=== PATIENT | male | born 1935 | race Caucasian/White ===

== ENCOUNTER 2019-05-03 09:24 | Outpatient (CLI) | payer MEDICARE, SELFPAY ==
--- NOTE | 2019-05-03 09:30 | USCV_ITS ---
Roland Diaz Age: 83 Gender: M : 1935 Exam Date: 05/03/2019 09:33 Ordering Phys: Ryan Houser MD ([email or web address]) Technologist: Yola Tucker Exam Location: [facility] [place] Indication: AORTIC STENOSIS BP: / HR: 51 Rhythm: Sinus Technical Quality: Adequate MEASUREMENTS (Male / Female) Normal Values 2D ECHO LV Diastolic Diameter PLAX 4.9 cm 4.2 - 5.9 / 3.9 - 5.3 cm LV Systolic Diameter PLAX 2.8 cm LV Chamber Size 5.6 cm IVS Diastolic Thickness 1.4 cm 0.6 - 1.0 / 0.6 - 0.9 cm IVS Systolic Thickness 1.5 cm LVPW Diastolic Thickness 1.9 cm 0.6 - 1.0 / 0.6 - 0.9 cm LVPW Systolic Thickness 2.9 cm RV Chamber Size 2.8 cm LVOT Diameter 2.0 cm LV Ejection Fraction 2D Teich 74.3 % LV Ejection Fraction MOD 2C 68.8 % LV Ejection Fraction 2C AL 68.1 % LA Diameter 6.0 cm LA Width 4.8 cm LA Height 6.2 cm RA Width 3.8 cm RA Height 5.4 cm Aorta at Sinotubular Diameter 3.1 cm M-MODE LV Diastolic Diameter MM 5.9 cm 4.2 - 5.9 / 3.9 - 5.3 cm LV Systolic Diameter MM 4.1 cm LV Ejection Fraction MM Teich 57.6 % IVS Diastolic Thickness MM 1.3 cm 0.6 - 1.0 / 0.6 - 0.9 cm IVS Systolic Thickness MM 1.4 cm LVPW Diastolic Thickness MM 1.1 cm 0.6 - 1.0 / 0.6 - 0.9 cm LVPW Systolic Thickness MM 1.2 cm Aortic Annulus Diameter 3.3 cm LA Ao Ratio MM 1.8 MV E Point Septal Separation 0.8 cm DOPPLER AV Peak Velocity 327.0 cm/s LVOT Peak Velocity 89.0 cm/s AV Area Cont Eq vti 1.0 cm squared AV Area Cont Eq pk 0.9 cm squared MV Area PHT 2.1 cm squared Mitral E to A Ratio 3.0 MV E' Velocity 11.0 cm/s Mitral E to MV E' Ratio 16.0 Mitral E to LV E' Lateral Ratio 15.6 Mitral E to LV E' Septal Ratio 16.5 TR Peak Velocity 291.0 cm/s TR Peak Gradient 34.0 mmHg TV Peak E Velocity 44.0 cm/s Right Atrial Pressure 3.0 mmHg Pulmonary Artery Systolic Pressu 36.9 mmHg PV Peak Velocity 67.0 cm/s RV Acceleration Time 0.1 s RV Ejection Time 0.4 s RV AcT/ET 0.3 FINDINGS Left Ventricle Normal left ventricular size and systolic function, EF 58 %. No regional wall motion abnormalities. Moderate left ventricular hypertrophy. Grade I/IV diastolic dysfunction (abnormal relaxation filling pattern), normal to mildly elevated filling pressures. Right Ventricle The right ventricle is normal in size and function. Right Atrium The right atrium is normal in size. Left Atrium Moderately increased left atrial size. Mitral Valve Thickened mitral valve. Moderate mitral annular calcification. At least moderate eccentric mitral regurgitation with a jet directed posteriorly Aortic Valve Thickened and stenotic aortic valve.moderate aortic valve calcification. Possibly low gradient severe aortic valve stenosis, with a valve area of 0.81 cm squared. Peak velocity of 3.3 m/s with a peak gradient of 43 and a mean gradient of 23 mmHg Tricuspid Valve No gross abnormalities noted.trace to mild tricuspid valve regurgitation. Pulmonic Valve Trace pulmonary valve regurgitation. Pericardium Normal pericardium without effusion. Aorta Normal ascending aorta dimension. CONCLUSIONS Normal left ventricular size and systolic function, EF 58 %. No regional wall motion abnormalities. Moderate left ventricular hypertrophy. Grade I/IV diastolic dysfunction (abnormal relaxation filling pattern), normal to mildly elevated filling pressures. Thickened and stenotic aortic valve.moderate aortic valve calcification. Possibly low gradient severe aortic valve stenosis, with a valve area of 0.81 cm squared. Peak velocity of 3.3 m/s with a peak gradient of 43 and a mean gradient of 23 mmHg. Thickened mitral valve. Moderate mitral annular calcification. At least moderate eccentric mitral regurgitation with a jet directed posteriorly. Trace to mild tricuspid valve regurgitation. Estimated pulmonary artery peak systolic pressure 37 mmHg There is no pericardial effusion. There are no intracardiac masses. No previous study is available for comparison. Dr Chucho Murray MD [facility] (Electronically Signed) Final Date: 03 May 2019 23:19 S
--- NOTE | 2019-05-03 10:15 | USCV_ITS ---
Roland Diaz Age: 83 Gender: M : 1935 Exam Date: 05/03/2019 09:55 Ordering Phys: Ryan Houser MD ([email or web address]) Technologist: Yola Tucker Exam Location: [facility] – [place] Indication: AAA HISTORY: Diameter (cm) AP x Transverse x Length Velocity (cm/s) Waveform Prox Aorta: 3.26 x 3.09 x 64.10 Mid Aorta: 4.38 x 4.38 x 47.90 Distal Aorta: 5.04 x 5.41 x 6.24 18.90 Right Iliac Prox: 1.30 x 1.78 x 106.10 Left Iliac Prox: 1.16 x 1.59 x 101.50 Stent Prox Landing x x Aneurysmal Sac Max x x Lt Lat Sac Dim Rt Lat Sac Dim Stent Dist Landing x x Right Iliac Stent x x Left Iliac Stent x x Right Renal Art Left Renal Art FINDINGS: Mild to moderate diffuse plaques in the abdominal aorta. No evidence of any dissection CONCLUSIONS 1. 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 Mild to moderate diffuse plaques in the abdominal aorta. 3. Ectatic proximal common iliac arteries bilaterally No similar previous studies available for comparison Dr Chucho Murray MD [facility] (Electronically Signed) Final Date: 05 May 2019 09:22 S
== END 2019-05-03 09:25 | disposition home or self-care (01) ==
LOC: US 09:25
PROVIDERS: Family Provider Nurse Practitioner Family; PCP Nurse Practitioner Family; Visit Provider Internal Medicine Cardiovascular Disease
DX: I71.4 Abdominal aortic aneurysm, without rupture (principal); I08.3 Combined rheumatic disorders of mitral, aortic and tricuspid valves
CPT/HCPCS: 93306; 93978

== ENCOUNTER 2019-07-02 08:56 | Inpatient (IN) | payer MEDICARE, SELFPAY ==
[2019-07-02] VITALS (10 sets, daily range): BP systolic 109–161; BP diastolic 48–86; PULSE 55–64; RESP 16–26; TEMP 36.4–36.9; O2SAT 92–99; BMI 31.4
--- NOTE | 2019-07-02 09:15 | ECG_ITS ---
Measurements Intervals Macy Rate: 58 P: 50 CA: 213 QRS: -13 QRSD: 137 T: 23 QT: 488 QTc: 480 SINUS BRADYCARDIA WITH FIRST DEGREE AV BLOCK INTRAVENTRICULAR CONDUCTION DELAY [130+ ms QRS DURATION] No previous ECG available for comparison Electronically Signed On 07-03-2019 8:19:27 CDT by Ryan Houser M.D. [email or web address]
--- NOTE | 2019-07-02 09:15 | XRR_ITS ---
PROCEDURE INFORMATION: Exam: XR Chest, 1 View Exam date and time: 07/02/2019 9:16 AM Age: 83 years old Clinical indication: Shortness of breath; Prior surgery; Surgery date: 6+ months; Surgery type: Pacemaker, stents; Additional info: Dyspnea/cough TECHNIQUE: Imaging protocol: XR of the chest Views: 1 view. COMPARISON: No relevant prior studies available. FINDINGS: Tubes, catheters and devices: AICD. Lungs: COPD , interstitial prominence, and mild basilar airspace disease. Pleural space: Questionable small left pleural effusion. Heart/Mediastinum: Cardiomegaly. Vasculature: Ectasia of the thoracic aorta. Bones/joints: Degenerative change and osteopenia. XR/XR chest 1V portable [id number] IMPRESSION: 1. Cardiomegaly. 2. COPD , interstitial prominence, and mild basilar airspace disease.
--- NOTE | 2019-07-02 09:15 | W.ED.SOB ---
HPI - SOB/Dyspnea General: Chief Complaint: Shortness of Breath/Dyspnea Stated Complaint: SOB Time Seen by Provider: 07/02/19 08:58 History of Present Illness: HPI Narrative: 83 yo comes in complaining of shortness of breath. Patient has a history of congestive heart failure read through Dr. Houser's cardiology note at one point he had a very depressed ejection fraction that did seem to improve he also has a abdominal aortic aneurysm measuring 5 cm and he has some degree of aortic stenosis he has an implantable defibrillator as well patient is complaining of coughing and shortness of breath but this is been going on since March he denies any fever myalgias not even a subjective fever at this point he has some baseline orthopnea that he reports is not really worsened at all he denies any chest pain no other symptoms and no urinary tract symptoms no abdominal pain he is not recently changed any medications. Associated symptoms: Reports orthopnea; Deny abdominal pain, chest pain, fever(s), nausea or vomiting Review of Systems Const: Denies: fever, chills, body aches, change in appetite, fatigue or malaise ENMT: Reports: ear pain and nasal congestion; Denies: throat pain or nasal discharge Card: Reports: edema, shortness of breath on exertion and shortness of breath when lying down; Denies: chest pain Resp: Denies: shortness of breath, productive cough or non-productive cough GI: Denies: abdominal pain, nausea, vomiting, vomiting blood, coffee grounds in vomit, diarrhea, constipation, bloating, blood in stool or black tarry stool : Denies: flank pain, painful urination, urinary frequency or urinary urgency Skin/Breast: Denies: rash or itching PFSH ED PFSH: Medical History Abdominal aortic aneurysm (AAA) Aortic valve disease Mild to moderate aortic stenosis ASHD (arteriosclerotic heart disease) CHF (congestive heart failure) Cognitive dysfunction Elevated PSA Essential hypertension GERD (gastroesophageal reflux disease) Hyperlipidemia Hypothyroidism Ischemic cardiomyopathy LVH (left ventricular hypertrophy) Prostatic hypertrophy Pulmonary HTN SOB (shortness of breath) SVT (supraventricular tachycardia) TIA (transient ischemic attack) Ventricular tachycardia Surgical History S/P angioplasty with stent S/P implantation of automatic cardioverter/defibrillator (AICD) [facility] 08/07 Family History Father CAD (coronary artery disease) Mother CAD (coronary artery disease) CHF (congestive heart failure) Brother Parkinson disease Sister Fibromyalgia Social History Smoking and tobacco status: never smoked Alcohol intake: never Lives independently: Yes Marital status: / service: No Current occupational status: retired Current gender identity: Male Gillian/Worship: Yazidism Physical Exam Const: COMMON NORMALS: no apparent distress GENERAL APPEARANCE: cooperative and comfortable ORIENTATION/CONSCIOUSNESS: Yes awake, Yes oriented to person, Yes oriented to place and Yes oriented to time HENMT: COMMON NORMALS: normocephalic, head/scalp atraumatic, hearing grossly normal bilaterally, external ears normal, EAC's normal, TM's normal bilaterally, nasal mucous membranes and turbinates normal, moist oral mucous membranes and oropharynx normal HEAD & SCALP: normocephalic and atraumatic NOSE: nasal mucous membranes and turbinates normal EXTERNAL EAR: Yes external ears normal EXTERNAL AUDITORY CANAL: EAC's normal TYMPANIC MEMBRANE: TM's normal bilaterally Eye: COMMON NORMALS: PERRL, EOMs intact bilaterally, conjunctivae normal and no scleral icterus CONJUNCTIVA: Yes conjunctivae normal PUPIL: Yes PERRL Neck/C-Spine: COMMON NORMALS: full ROM, no lymphadenopathy and supple Lymph: LYMPHATIC: no lymphadenopathy noted and no lymphedema noted Resp: COMMON NORMALS: normal respiratory effort, no retractions and no use of accessory muscles AUSCULTATION: rales bilateral and diffuse, wheezes (mild) and diminished lung sounds Cardio: COMMON NORMALS: regular rhythm and no murmurs RATE: bradycardic RHYTHM: regular rhythm HEART SOUNDS: murmur systolic Location: right sternal border Intensity: V/ Timing: late GI: COMMON NORMALS: soft to palpation and no hepatosplenomegaly AUSCULTATION: Yes normoactive bowel sounds PALPATION: Yes soft, No tender, No guarding and Yes no hepatosplenomegaly Extremity: COMMON NORMALS: normal to inspection, normal capillary refill, no clubbing, cyanosis or edema, no calf tenderness and no pedal edema Neuro: SENSORIUM/ORIENTATION: Yes oriented to person, Yes oriented to place and Yes oriented to time Skin: COMMON NORMALS: no rashes or lesions noted GENERAL SKIN EXAM: no rashes or lesions noted Course Vital Signs: Vital signs: Vital Signs Temperature 98.4 F 07/04/19 15:09 Pulse Rate 61 07/04/19 16:00 Respiratory Rate 18 07/04/19 16:00 Blood Pressure 132/70 07/04/19 16:00 Pulse Oximetry 94 07/04/19 15:15 MDM - SOB/Dyspnea Lab Data: Labs: Lab Results 07/02/19 07/02/19 07/02/19 Range/Units 09:27 09:27 09:27 WBC 4.7 (4.0-10.0) 10^3/ uL RBC 3.92 L (4.1-5.3) 10^6/u L Hgb 11.6 L (11.7-16.6) g/dL Hct 36.4 L (42.0-52.0) % MCV 92.9 (80-94) fL MCH 29.6 (28.0-34.0) pg MCHC 31.9 (30.0-36.0) g/dL RDW 14.8 (12.1-15.1) % Plt Count 131 (130-400) 10^3/c mm MPV 9.4 (7.4-10.4) fL Neut % (Auto) 79.2 % Lymph % (Auto) 5.3 % Pra[place] % (Auto) 12.8 % Eos % (Auto) 1.9 % Baso % (Auto) 0.6 % Neut # (Auto) 3.7 (1.8-7.7) 10^3/u L Lymph # (Auto) 0.3 L (0.8-4.8) 10^3/u L [place] # (Auto) 0.6 (0.2-0.9) 10^3/u L Eos # (Auto) 0.1 (0.0-0.8) 10^3/u L Baso # (Auto) 0.0 (0.0-0.1) 10^3/u L Nucleated RBC % (a uto) 0 % Nucleated RBCs # 0.0 /100WBC D-Dimer 0.57 (0-0.59) ug/mIFE U Specimen Type Sample Site ABG pH (7.35-7.45) ABG pCO2 (35-45) mmHg ABG pO2 (80.0-100.0) mmH g ABG HCO3 (22-26) mmol/L ABG Base Excess (-2.0-2.0) mmol/ L Marvin Test Hematocrit (42-52) % O2 Delivery Device O2 Liters/Min % Delinquent Notice Machine Operator ID Sodium 130 L (136-145) mmol/L Potassium 3.7 (3.5-5.1) mmol/L Chloride 93 L (98-107) mmol/L Carbon Dioxide 27 (22-29) mmol/L Anion Gap 13.7 (5-19) BUN 11 (8-23) mg/dL Creatinine 0.9 (0.7-1.2) mg/dL Glucose 123 H (65-115) mg/dL Estimat Average Gl ucose Hemoglobin A1c (4.0-6.0) % Calculated Osmolal ity 267 L (285-295) mOsm/k g Lactic Acid (0.5-2.2) mmol/L Calcium 9.2 (8.5-10.5) mg/dL Phosphorus (2.5-4.5) mg/dL Magnesium (1.7-2.3) mg/dL Ferritin (30-400) ng/mL Total Bilirubin 0.7 (0.15-1.2) mg/dL AST 20 (0-40) U/L ALT 19 (0-41) U/L Alkaline Phosphata se 124 (40-130) IU/L Lactate Dehydrogen ase (135-225) U/L C-Reactive Protein (0.0-4.9) mg/L NT-Pro-B Natriuret Pep (0-450) pg/mL Total Protein 6.8 (6.6-8.7) g/dL Albumin 3.9 (3.5-5.2) g/dL Globulin 2.9 (1.3-4.6) g/dL Triglycerides (0-150) mg/dL Cholesterol (0-200) mg/dL LDL Cholesterol, C alc (50-129) mg/dL HDL Cholesterol (60-100) mg/dL LDL/HDL Ratio (0.00-3.22) RATI O Cholesterol/HDL Ra stuart (1.0-5.00) mg/dL Lipase 9 L (13-60) U/L Procalcitonin (0-0.5) ng/mL Nasal/Oral COVID-1 9 PCR Influenza Type A A g (Negative) Influenza Type B A g (Negative) 07/02/19 07/02/19 07/02/19 Range/Units 09:27 10:49 11:49 WBC (4.0-10.0) 10^3/ uL RBC (4.1-5.3) 10^6/u L Hgb (11.7-16.6) g/dL Hct (42.0-52.0) % MCV (80-94) fL MCH (28.0-34.0) pg MCHC (30.0-36.0) g/dL RDW (12.1-15.1) % Plt Count (130-400) 10^3/c mm MPV (7.4-10.4) fL Neut % (Auto) % Lymph % (Auto) % [place] % (Auto) % Eos % (Auto) % Baso % (Auto) % Neut # (Auto) (1.8-7.7) 10^3/u L Lymph # (Auto) (0.8-4.8) 10^3/u L [place] # (Auto) (0.2-0.9) 10^3/u L Eos # (Auto) (0.0-0.8) 10^3/u L Baso # (Auto) (0.0-0.1) 10^3/u L Nucleated RBC % (a uto) % Nucleated RBCs # /100WBC D-Dimer (0-0.59) ug/mIFE U Specimen Type Arterial Sample Site Radial, left ABG pH 7.45 (7.35-7.45) ABG pCO2 44.8 (35-45) mmHg ABG pO2 95.5 (80.0-100.0) mmH g ABG HCO3 30.8 H (22-26) mmol/L ABG Base Excess 5.9 H (-2.0-2.0) mmol/ L Marvin Test Pos Hematocrit 36.5 L (42-52) % O2 Delivery Device Nc O2 Liters/Min 2.0 % Delinquent Notice Machine Operator ID cak Sodium (136-145) mmol/L Potassium (3.5-5.1) mmol/L Chloride (98-107) mmol/L Carbon Dioxide (22-29) mmol/L Anion Gap (5-19) BUN (8-23) mg/dL Creatinine (0.7-1.2) mg/dL Glucose (65-115) mg/dL Estimat Average Gl ucose Hemoglobin A1c (4.0-6.0) % Calculated Osmolal ity (285-295) mOsm/k g Lactic Acid 1.1 (0.5-2.2) mmol/L Calcium (8.5-10.5) mg/dL Phosphorus (2.5-4.5) mg/dL Magnesium (1.7-2.3) mg/dL Ferritin 116 (30-400) ng/mL Total Bilirubin (0.15-1.2) mg/dL AST (0-40) U/L ALT (0-41) U/L Alkaline Phosphata se (40-130) IU/L Lactate Dehydrogen ase 271 H (135-225) U/L C-Reactive Protein 22.8 H (0.0-4.9) mg/L NT-Pro-B Natriuret Pep 3429 H (0-450) pg/mL Total Protein (6.6-8.7) g/dL Albumin (3.5-5.2) g/dL Globulin (1.3-4.6) g/dL Triglycerides (0-150) mg/dL Cholesterol (0-200) mg/dL LDL Cholesterol, C alc (50-129) mg/dL HDL Cholesterol (60-100) mg/dL LDL/HDL Ratio (0.00-3.22) RATI O Cholesterol/HDL Ra stuart (1.0-5.00) mg/dL Lipase (13-60) U/L Procalcitonin (0-0.5) ng/mL Nasal/Oral COVID-1 9 PCR Influenza Type A A g (Negative) Influenza Type B A g (Negative) 07/02/19 07/02/19 07/02/19 Range/Units 12:05 12:56 14:12 WBC (4.0-10.0) 10^3/ uL RBC (4.1-5.3) 10^6/u L Hgb (11.7-16.6) g/dL Hct (42.0-52.0) % MCV (80-94) fL MCH (28.0-34.0) pg MCHC (30.0-36.0) g/dL RDW (12.1-15.1) % Plt Count (130-400) 10^3/c mm MPV (7.4-10.4) fL Neut % (Auto) % Lymph % (Auto) % [place] % (Auto) % Eos % (Auto) % Baso % (Auto) % Neut # (Auto) (1.8-7.7) 10^3/u L Lymph # (Auto) (0.8-4.8) 10^3/u L [place] # (Auto) (0.2-0.9) 10^3/u L Eos # (Auto) (0.0-0.8) 10^3/u L Baso # (Auto) (0.0-0.1) 10^3/u L Nucleated RBC % (a uto) % Nucleated RBCs # /100WBC D-Dimer (0-0.59) ug/mIFE U Specimen Type Sample Site ABG pH (7.35-7.45) ABG pCO2 (35-45) mmHg ABG pO2 (80.0-100.0) mmH g ABG HCO3 (22-26) mmol/L ABG Base Excess (-2.0-2.0) mmol/ L Marvin Test Hematocrit (42-52) % O2 Delivery Device O2 Liters/Min % Delinquent Notice Machine Operator ID Sodium (136-145) mmol/L Potassium (3.5-5.1) mmol/L Chloride (98-107) mmol/L Carbon Dioxide (22-29) mmol/L Anion Gap (5-19) BUN (8-23) mg/dL Creatinine (0.7-1.2) mg/dL Glucose (65-115) mg/dL Estimat Average Gl ucose Hemoglobin A1c (4.0-6.0) % Calculated Osmolal ity (285-295) mOsm/k g Lactic Acid (0.5-2.2) mmol/L Calcium (8.5-10.5) mg/dL Phosphorus (2.5-4.5) mg/dL Magnesium (1.7-2.3) mg/dL Ferritin (30-400) ng/mL Total Bilirubin (0.15-1.2) mg/dL AST (0-40) U/L ALT (0-41) U/L Alkaline Phosphata se (40-130) IU/L Lactate Dehydrogen ase (135-225) U/L C-Reactive Protein (0.0-4.9) mg/L NT-Pro-B Natriuret Pep (0-450) pg/mL Total Protein (6.6-8.7) g/dL Albumin (3.5-5.2) g/dL Globulin (1.3-4.6) g/dL Triglycerides 82 (0-150) mg/dL Cholesterol 162 (0-200) mg/dL LDL Cholesterol, C alc 86 (50-129) mg/dL HDL Cholesterol 60 (60-100) mg/dL LDL/HDL Ratio 1.43 (0.00-3.22) RATI O Cholesterol/HDL Ra stuart 2.70 (1.0-5.00) mg/dL Lipase (13-60) U/L Procalcitonin (0-0.5) ng/mL Nasal/Oral COVID-1 9 PCR See comment Influenza Type A A g Negative (Negative) Influenza Type B A g Negative (Negative) 07/02/19 07/03/19 07/03/19 Range/Units 14:12 04:32 04:32 WBC 4.0 (4.0-10.0) 10^3/ uL RBC 3.43 L (4.1-5.3) 10^6/u L Hgb 10.4 L (11.7-16.6) g/dL Hct 32.1 L (42.0-52.0) % MCV 93.6 (80-94) fL MCH 30.3 (28.0-34.0) pg MCHC 32.4 (30.0-36.0) g/dL RDW 14.6 (12.1-15.1) % Plt Count 124 L (130-400) 10^3/c mm MPV 9.7 (7.4-10.4) fL Neut % (Auto) 70.6 % Lymph % (Auto) 10.9 % [place] % (Auto) 15.2 % Eos % (Auto) 2.5 % Baso % (Auto) 0.5 % Neut # (Auto) 2.8 (1.8-7.7) 10^3/u L Lymph # (Auto) 0.4 L (0.8-4.8) 10^3/u L [place] # (Auto) 0.6 (0.2-0.9) 10^3/u L Eos # (Auto) 0.1 (0.0-0.8) 10^3/u L Baso # (Auto) 0.0 (0.0-0.1) 10^3/u L Nucleated RBC % (a uto) 0 % Nucleated RBCs # 0.0 /100WBC D-Dimer (0-0.59) ug/mIFE U Specimen Type Sample Site ABG pH (7.35-7.45) ABG pCO2 (35-45) mmHg ABG pO2 (80.0-100.0) mmH g ABG HCO3 (22-26) mmol/L ABG Base Excess (-2.0-2.0) mmol/ L Marvin Test Hematocrit (42-52) % O2 Delivery Device O2 Liters/Min % Delinquent Notice Machine Operator ID Sodium 135 L (136-145) mmol/L Potassium 3.1 L (3.5-5.1) mmol/L Chloride 95 L (98-107) mmol/L Carbon Dioxide 30 H (22-29) mmol/L Anion Gap 13.1 (5-19) BUN 13 (8-23) mg/dL Creatinine 1.0 (0.7-1.2) mg/dL Glucose 86 (65-115) mg/dL Estimat Average Gl ucose Hemoglobin A1c (4.0-6.0) % Calculated Osmolal ity 275 L (285-295) mOsm/k g Lactic Acid (0.5-2.2) mmol/L Calcium 8.4 L (8.5-10.5) mg/dL Phosphorus (2.5-4.5) mg/dL Magnesium (1.7-2.3) mg/dL Ferritin (30-400) ng/mL Total Bilirubin 0.5 (0.15-1.2) mg/dL AST 17 (0-40) U/L ALT 15 (0-41) U/L Alkaline Phosphata se 101 (40-130) IU/L Lactate Dehydrogen ase (135-225) U/L C-Reactive Protein 25.4 H (0.0-4.9) mg/L NT-Pro-B Natriuret Pep (0-450) pg/mL Total Protein 5.8 L (6.6-8.7) g/dL Albumin 3.4 L (3.5-5.2) g/dL Globulin 2.4 (1.3-4.6) g/dL Triglycerides (0-150) mg/dL Cholesterol (0-200) mg/dL LDL Cholesterol, C alc (50-129) mg/dL HDL Cholesterol (60-100) mg/dL LDL/HDL Ratio (0.00-3.22) RATI O Cholesterol/HDL Ra stuart (1.0-5.00) mg/dL Lipase (13-60) U/L Procalcitonin 0.03 (0-0.5) ng/mL Nasal/Oral COVID-1 9 PCR Influenza Type A A g (Negative) Influenza Type B A g (Negative) 07/03/19 07/03/19 Range/Units 04:32 04:32 WBC (4.0-10.0) 10^3/ uL RBC (4.1-5.3) 10^6/u L Hgb (11.7-16.6) g/dL Hct (42.0-52.0) % MCV (80-94) fL MCH (28.0-34.0) pg MCHC (30.0-36.0) g/dL RDW (12.1-15.1) % Plt Count (130-400) 10^3/c mm MPV (7.4-10.4) fL Neut % (Auto) % Lymph % (Auto) % [place] % (Auto) % Eos % (Auto) % Baso % (Auto) % Neut # (Auto) (1.8-7.7) 10^3/u L Lymph # (Auto) (0.8-4.8) 10^3/u L [place] # (Auto) (0.2-0.9) 10^3/u L Eos # (Auto) (0.0-0.8) 10^3/u L Baso # (Auto) (0.0-0.1) 10^3/u L Nucleated RBC % (a uto) % Nucleated RBCs # /100WBC D-Dimer (0-0.59) ug/mIFE U Specimen Type Sample Site ABG pH (7.35-7.45) ABG pCO2 (35-45) mmHg ABG pO2 (80.0-100.0) mmH g ABG HCO3 (22-26) mmol/L ABG Base Excess (-2.0-2.0) mmol/ L Marvin Test Hematocrit (42-52) % O2 Delivery Device O2 Liters/Min % Delinquent Notice Machine Operator ID Sodium (136-145) mmol/L Potassium (3.5-5.1) mmol/L Chloride (98-107) mmol/L Carbon Dioxide (22-29) mmol/L Anion Gap (5-19) BUN (8-23) mg/dL Creatinine (0.7-1.2) mg/dL Glucose (65-115) mg/dL Estimat Average Gl ucose 108 Hemoglobin A1c 5.4 (4.0-6.0) % Calculated Osmolal ity (285-295) mOsm/k g Lactic Acid (0.5-2.2) mmol/L Calcium (8.5-10.5) mg/dL Phosphorus 4.0 (2.5-4.5) mg/dL Magnesium 2.1 (1.7-2.3) mg/dL Ferritin (30-400) ng/mL Total Bilirubin (0.15-1.2) mg/dL AST (0-40) U/L ALT (0-41) U/L Alkaline Phosphata se (40-130) IU/L Lactate Dehydrogen ase (135-225) U/L C-Reactive Protein (0.0-4.9) mg/L NT-Pro-B Natriuret Pep (0-450) pg/mL Total Protein (6.6-8.7) g/dL Albumin (3.5-5.2) g/dL Globulin (1.3-4.6) g/dL Triglycerides (0-150) mg/dL Cholesterol (0-200) mg/dL LDL Cholesterol, C alc (50-129) mg/dL HDL Cholesterol (60-100) mg/dL LDL/HDL Ratio (0.00-3.22) RATI O Cholesterol/HDL Ra stuart (1.0-5.00) mg/dL Lipase (13-60) U/L Procalcitonin (0-0.5) ng/mL Nasal/Oral COVID-1 9 PCR Influenza Type A A g (Negative) Influenza Type B A g (Negative) Discharge Plan Discharge Patient Disposition: Admitted As Inpatient Admit Provider: Sreedhar Forrest Clinical Impression: Pneumonia, CHF (congestive heart failure), Essential hypertension, ASHD (arteriosclerotic heart disease), 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 IF YOU HAVE ANY QUESTIONS OR NEED TO CHANGE YOUR APPOINTMENT, PLEASE CALL THEM AT [phone].) Ruth Chavez FNP [Primary Care Provider] - (YOU HAVE A FOLLOW UP APPOINTMENT WITH RUTH CHAVEZ ON ThursdayJune AT 9:30 AM AT [facility]. ([phone])) Discharge Diet: Cardiac and Low Cholesterol Discharge Activity: Increase activity as tolerated Patient Instructions: Lidocaine Patch (On the skin), Otitis Externa - Adult, Hypoxia (GEN) Additional Instructions: Continue fluid restriction at 1.5 L/day of fluids. Please follow-up with Dr. Sims in a week. Please follow-up with your primary care physician in couple of weeks. Please return to emergency room if develop any new shortness of breath, any chest pain, cough, fevers or chills, nausea or vomiting, diarrhea, or any other new complaints. Interventions: ED Discharge Assessment Last Done: 07/02/19 13:26 Discharge Date/Time: 07/02/19 14:09 Coding Level of Care Code ED Management Aide for Chg Fwd Exam Comprehensive
[2019-07-02 09:32] LABS: Basophils % 0.6 %; Eosinophils # 0.1 10^3/uL (0.0-0.8); Eosinophils % 1.9 %; Hematocrit 36.4 % (42.0-52.0); Hemoglobin 11.6 g/dL (11.7-16.6); Lymphocytes # 0.3 10^3/uL (0.8-4.8); Lymphocytes % 5.3 %; Mean Corpuscular HGB Conc 31.9 g/dL (30.0-36.0); Mean Corpuscular Hemoglobin 29.6 pg (28.0-34.0); Mean Corpuscular Volume 92.9 fL (80-94); Mean Platelet Volume 9.4 fL (7.4-10.4); Monocytes # 0.6 10^3/uL (0.2-0.9); Monocytes % 12.8 %; Neutrophils # 3.7 10^3/uL (1.8-7.7); Neutrophils % 79.2 %; Nucleated Red Blood Cells % 0 %; Platelet Count 131 10^3/cmm (130-400); Red Blood Count 3.92 10^6/uL (4.1-5.3); Red Cell Distribution Width 14.8 % (12.1-15.1); White Blood Count 4.7 10^3/uL (4.0-10.0)
[2019-07-02 09:52] LABS: Alanine Aminotransferase 19 U/L (0-41); Albumin Level 3.9 g/dL (3.5-5.2); Alkaline Phosphatase 124 IU/L (40-130); Anion Gap 13.7 (5-19); Aspartate Amino Transferase 20 U/L (0-40); Blood Urea Nitrogen 11 mg/dL (8-23); Calcium 9.2 mg/dL (8.5-10.5); Carbon Dioxide 27 mmol/L (22-29); Chloride 93 mmol/L (98-107); Globulin 2.9 g/dL (1.3-4.6); Glucose 123 mg/dL (65-115); Lipase 9 U/L (13-60); Osmolality Calculated 267 mOsm/kg (285-295); Potassium 3.7 mmol/L (3.5-5.1); Sodium 130 mmol/L (136-145); Total Bilirubin 0.7 mg/dL (0.15-1.2); Total Protein 6.8 g/dL (6.6-8.7)
[2019-07-02 12:00] LABS: ABG PCO2 44.8 mmHg (35-45); ABG PH Result 7.45 (7.35-7.45); Arterial Blood Gas Hematocrit 36.5 % (42-52); Base Excess ABG 5.9 mmol/L (-2.0-2.0); Blood Gas Allen Test Pos; Blood Gas Sample Site Radial, left; Blood Gas Sample Type Arterial; HCO3 ABG 30.8 mmol/L (22-26); Oxygen Device NC; PO2 ABG 95.5 mmHg (80.0-100.0)
[2019-07-02] MEDS: azithromycin 500 MG in sodium chloride 0.9% 250 ML 250 MG IV (12:23)
[2019-07-02 12:33] LABS: Lactic Sepsis W/Reflex 1.1 mmol/L (0.5-2.2)
[2019-07-02 12:43] LABS: C Reactive Protein 22.8 mg/L (0.0-4.9); Ferritin 116 ng/mL (30-400); Lactate Dehydrogenase 271 U/L (135-225); NT Pro B Type Natriuretic Pept 3429 pg/mL (0-450)
--- NOTE | 2019-07-02 12:44 | PC.NURSE ---
droplet precautions initiated
[2019-07-02 12:46] LABS: D Dimer 0.57 ug/mIFEU (0-0.59)
[2019-07-02 13:00] LABS: Influenza A by IFA Negative (Negative)
[2019-07-02 13:01] LABS: Influenza B by IFA Negative (Negative)
--- NOTE | 2019-07-02 14:01 | PM.HP ---
Providers/Chief Complaint Admitting Physician: Sreedhar Forrest MD Primary Care Provider: Ruth Chavez-NrsInst Chief Complaint: PNEUMONIA, CHF History of Present Illness Roland Diaz is a 83 year old male with a past medical history of CAD status post stenting x3, history of ICD, history of diastolic heart failure, history of ischemic cardiomyopathy and ventricular tachycardia aortic stenosis, hypertension, dyslipidemia, moderate pulmonary pretension who presents to the emergency room due to complaints of bilateral ear pain cough, shortness of breath. Patient states that his symptoms have been ongoing for the last 3 months, starting in March, when he started to develop bilateral ear pain, he has been treated with multiple rounds of antibiotics for otitis media, has had multiple ear washings, but continues to have bilateral ear pain, according to him ear discharge, has bilateral hearing aids in place Patient states that since March he has had a chronic nonproductive cough, wheezing, shortness of breath his shortness of breath occurs more with exertion, denies chest pain, no recent fevers, did have bronchitis in March, no exposure to covid 19, he did move from [place] in January, his a year ago, his children are scattered throughout the country, patient states that shortness of breath and wheezing has been worsening over the past few months. For the last few weeks, his cough has become more significant, his shortness of breath with exertion and wheezing has become more prominent. Patient states that yesterday, he went to buy a piece of plywood, when he took it off his truck, he felt short of breath with less than 25 feet was very unusual for him. Patient also reports sinus congestion, dry eyes, denies a history of seasonal allergies. He also reports fatigue, malaise for the last few months. Review of Systems Const: Reports: fatigue and malaise; Denies: fever or chills Eyes: Denies: change in vision or blurry vision ENMT: Reports: nasal congestion Resp: Reports: shortness of breath, non-productive cough and wheezing; Denies: productive cough GI: Denies: abdominal pain, nausea, vomiting, vomiting blood, diarrhea, constipation, blood in stool or black tarry stool : Denies: flank pain, difficulty urinating, painful urination or urinary frequency Musc: Denies: neck pain or back pain Skin/Breast: Denies: rash Neuro: Denies: headache, dizziness or vertigo Psych: Denies: anxiety or depression Endo: Denies: excessive urination or excessive thirst Medications/Allergies Home Medications Medication Instructions Recorded Confirmed Last Taken Type valsartan 80 mg PO DAILY 07/02/19 07/02/19 07/02/19 History Allergies Allergy/AdvReac Type Severity Reaction Status Date / Time No Known Allergies Allergy Verified 07/02/19 09:10 PFSH Acute PFSH: Medical History Abdominal aortic aneurysm (AAA) Aortic valve disease Mild to moderate aortic stenosis ASHD (arteriosclerotic heart disease) CHF (congestive heart failure) Cognitive dysfunction Elevated PSA Essential hypertension GERD (gastroesophageal reflux disease) Hyperlipidemia Hypothyroidism Ischemic cardiomyopathy LVH (left ventricular hypertrophy) Prostatic hypertrophy Pulmonary HTN SOB (shortness of breath) SVT (supraventricular tachycardia) TIA (transient ischemic attack) Ventricular tachycardia Surgical History S/P angioplasty with stent S/P implantation of automatic cardioverter/defibrillator (AICD) [facility]ING[facility] 08/07 Family History Father CAD (coronary artery disease) Mother CAD (coronary artery disease) CHF (congestive heart failure) Brother Parkinson disease Sister Fibromyalgia Social History Smoking and tobacco status: never smoked Alcohol intake: never Lives independently: Yes Marital status: / service: No Current occupational status: retired Current gender identity: Male Gillian/Sabianism: Jainism Vitals/I&O/Wt Last Vital Signs Temp 98.4 F 07/02/19 13:26 Pulse 55 L 07/02/19 13:26 Resp 20 H 07/02/19 13:26 BP 139/77 07/02/19 13:26 Pulse Ox 98 07/02/19 13:26 Weight last 48 hrs Weight 102.058 kg Physical Exam Const: COMMON NORMALS: no apparent distress and oriented x3 GENERAL APPEARANCE: cooperative and comfortable HENMT: COMMON NORMALS: normocephalic HEAD & SCALP: normocephalic OTHER: Bilateral ears, otitis externa, irritation of ear canals, tympanic membranes bilaterally have fluid behind them, no dislocation of cone of light, Eye: COMMON NORMALS: PERRL, EOMs intact bilaterally and no papilledema GENERAL EYE: normal appearance of both eyes PUPIL: Yes PERRL DIRECT OPHTHALMOSCOPY: Yes no papilledema Neck/C-Spine: COMMON NORMALS: full ROM, no lymphadenopathy, no JVD and thyroid normal THYROID: thyroid normal Lymph: LYMPHATIC: no lymphadenopathy noted Resp: COMMON NORMALS: normal respiratory effort, no retractions and no use of accessory muscles AUSCULTATION: wheezes Cardio: COMMON NORMALS: no JVD, regular rate, regular rhythm, S1 normal heart sound, S2 normal heart sound, no gallops, no clicks and no murmurs RATE: regular rate RHYTHM: regular rhythm HEART SOUNDS: S1 normal and S2 normal GI: COMMON NORMALS: normal to inspection, nondistended, normoactive bowel sounds, soft to palpation, non-tender and no hepatosplenomegaly PALPATION: Yes soft and Yes no hepatosplenomegaly Extremity: COMMON NORMALS: normal to inspection, full ROM and no pedal edema Neuro: COMMON NORMALS: oriented x3, CN's II-XII intact bilaterally, moves all extremities and no focal motor deficits Psych: COMMON NORMALS: mental status grossly normal, thought process normal and cooperative THOUGHT PROCESS: normal thought process Data : 07/02/19 09:27 07/02/19 09:27 Micro: Microbiology 07/02/19 10:49 Blood Culture - Preliminary Blood SPECIMEN COLLECTED 07/02/19 09:27 Blood Culture - Preliminary Blood SPECIMEN COLLECTED A&P Assessment and plan (1) Acute respiratory failure with hypoxia: -Secondary to pneumonia and systolic and diastolic heart failure exacerbation -requiring 2L o2 -Patient's chest x-ray shows bilateral infiltrates, with pulmonary vascular congestion -BNP is in the 3000's, no significant leukocytosis, influenza test negative -No fevers, nonproductive cough -Patient has active wheezing on exam, has sinus congestion Plan: -covid19 testing -Continue azithromycin and Rocephin -Albuterol nebulizer, budesonide -Lasix 40 mg IV twice daily -Monitor I's and O's, fluid restrictions 1500 cc -We will do CT of the chest Status: Acute (2) Abdominal aortic aneurysm (AAA): 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 No regional wall motion abnormalities. Moderate left ventricular hypertrophy. Grade I/IV diastolic dysfunction (abnormal relaxation filling pattern), normal to mildly elevated filling pressures. Thickened and stenotic aortic valve.moderate aortic valve calcification. Possibly low gradient severe aortic valve stenosis, with a valve area of 0.81 cm squared. Peak velocity of 3.3 m/s with a peak gradient of 43 and a mean gradient of 23 mmHg. Thickened mitral valve. Moderate mitral annular calcification. At least moderate eccentric mitral regurgitation with a jet directed posteriorly. Trace to mild tricuspid valve regurgitation. Estimated pulmonary artery peak systolic pressure 37 mmHg There is no pericardial effusion. There are no intracardiac masses. No previous study is available for comparison. -Uses Lasix 40 mg once daily at home -Has been urinating more frequently at home Status: Acute (5) ASHD (arteriosclerotic heart disease): -CAD status post stents to his LAD and ramus intermedius, his right coronary artery and circumflex artery are occluded, he has some collaterals from LAD, his last angiogram on July 2017 in [place] showed a second LAD stent was placed Status: Acute (6) Essential hypertension: Status: Acute (7) Hyperlipidemia: Status: Acute (8) S/P implantation of automatic cardioverter/defibrillator (AICD): Status: Acute (9) Otitis externa: -Start antibiotics eardrops bilaterally Status: Acute Attestations Medical Necessity Statement*: She requires hospitalization, outpatient with observation, for acute respiratory failure Coding Level of Care Code Acute Portal Architect for [facility] Diagnoses Acute respiratory failure with hypoxia J96.01 Abdominal aortic aneurysm (AAA) I71.4 SVT (supraventricular tachycardia) I47.1 Ischemic cardiomyopathy I25.5 ASHD (arteriosclerotic heart disease) I25.10 Essential hypertension I10 Hyperlipidemia E78.5 S/P implantation of automatic cardioverter/defibrillator (AICD) Z95.810 Otitis externa H60.90
--- NOTE | 2019-07-02 14:11 | CTR_ITS ---
PROCEDURE INFORMATION: Exam: CT Chest Without Contrast Exam date and time: 07/02/2019 4:16 PM Age: 83 years old Clinical indication: Shortness of breath; Prior surgery; Surgery date: 6+ months; Surgery type: Defib, stents; Patient HX: Acute resp failure, chf. Pneumonia; Additional info: SOB TECHNIQUE: Imaging protocol: Computed tomography of the chest without contrast. Total DLP: 991.58 mGy-cm Radiation optimization: All CT scans at this facility use at least one of these dose optimization techniques: automated exposure control; mA and/or kV adjustment per patient size (includes targeted exams where dose is matched to clinical indication); or iterative reconstruction. COMPARISON: CR (CHEST, ) 07/02/2019 9:23 AM FINDINGS: Lungs: Dependent atelectasis in the lung bases. Calcified granulomas in the left lung. Mild interstitial interlobular thickening in the lung apices. Pleural space: Small bilateral pleural effusions. Heart: Coronary artery calcifications. Mitral annulus calcifications. The heart size is mildly enlarged. Aorta: Unremarkable. No aortic aneurysm. Lymph nodes: Prominent middle mediastinal lymph nodes are most likely reactive. Calcified mediastinal and hilar lymph nodes. Bones/joints: Unremarkable. No acute fracture. Soft tissues: Unremarkable. CT/CT chest wo con [id number] IMPRESSION: 1. Mild cardiomegaly and mild interstitial edema in the upper lobes. 2. Pleural effusions and mild atelectasis. 3. Old granulomatous disease. Radiation Dose CTDIVOL = (mGy): DLP = 991.58 (mGy-cm)
[2019-07-02 14:45] LABS: Procalcitonin 0.03 ng/mL (0-0.5)
[2019-07-02 14:56] LABS: C Reactive Protein 25.4 mg/L (0.0-4.9)
[2019-07-02] MEDS: enoxaparin 40 mg/0.4 mL Syringe SUBCUT (15:04)
[2019-07-02 15:25] LABS: Cholesterol 162 mg/dL (0-200); HDL Cholesterol 60 mg/dL (60-100); LDL Cholesterol Calculated 86 mg/dL (50-129); LDL HDL Ratio 1.43 RATIO (0.00-3.22); Triglycerides 82 mg/dL (0-150)
[2019-07-02] MEDS: cefTRIAXone 1,000 MG in sodium chloride 0.9% (plus) 50 ML 100 MG IV (15:31)
[2019-07-02] MEDS: FUROsemide 10 mg/mL SDV 4mL 40 MG IVP (17:00)
[2019-07-02] MEDS: ciprofloxacin-dexameth Otic Susp 7.5 mL Btl 4 DROP EAR-BOTH (17:00)
[2019-07-02] MEDS: budesonide 0.5 mg/2 mL Neb 0.25 MG INHALATION (20:03)
[2019-07-03] VITALS (20 sets, daily range): BP systolic 91–145; BP diastolic 51–78; PULSE 54–64; RESP 10–29; TEMP 36.5–36.8; O2SAT 92–97
--- NOTE | 2019-07-03 00:50 | PC.NURSE ---
patient has asked abot his ear antibiotics wondering if time to put more in. I told him it was twice a day. he also asked respiratory to vacuum his ears . said when he puts a kleenix in it comes out black. She told him that it may be a job for ENT doctor to check.
[2019-07-03] MEDS: FUROsemide 10 mg/mL SDV 4mL 40 MG IVP ×2 (04:42→17:45)
[2019-07-03 05:01] LABS: Basophils % 0.5 %; Eosinophils # 0.1 10^3/uL (0.0-0.8); Eosinophils % 2.5 %; Hematocrit 32.1 % (42.0-52.0); Hemoglobin 10.4 g/dL (11.7-16.6); Lymphocytes # 0.4 10^3/uL (0.8-4.8); Lymphocytes % 10.9 %; Mean Corpuscular HGB Conc 32.4 g/dL (30.0-36.0); Mean Corpuscular Hemoglobin 30.3 pg (28.0-34.0); Mean Corpuscular Volume 93.6 fL (80-94); Mean Platelet Volume 9.7 fL (7.4-10.4); Monocytes # 0.6 10^3/uL (0.2-0.9); Monocytes % 15.2 %; Neutrophils # 2.8 10^3/uL (1.8-7.7); Neutrophils % 70.6 %; Nucleated Red Blood Cells % 0 %; Platelet Count 124 10^3/cmm (130-400); Red Blood Count 3.43 10^6/uL (4.1-5.3); Red Cell Distribution Width 14.6 % (12.1-15.1)
[2019-07-03 05:16] LABS: Estmated Average Glucose 108; Hemoglobin A1C 5.4 % (4.0-6.0)
[2019-07-03 05:19] LABS: Magnesium 2.1 mg/dL (1.7-2.3)
[2019-07-03 05:20] LABS: Alanine Aminotransferase 15 U/L (0-41); Albumin Level 3.4 g/dL (3.5-5.2); Alkaline Phosphatase 101 IU/L (40-130); Anion Gap 13.1 (5-19); Aspartate Amino Transferase 17 U/L (0-40); Blood Urea Nitrogen 13 mg/dL (8-23); Calcium 8.4 mg/dL (8.5-10.5); Carbon Dioxide 30 mmol/L (22-29); Chloride 95 mmol/L (98-107); Globulin 2.4 g/dL (1.3-4.6); Glucose 86 mg/dL (65-115); Osmolality Calculated 275 mOsm/kg (285-295); Potassium 3.1 mmol/L (3.5-5.1); Sodium 135 mmol/L (136-145); Total Bilirubin 0.5 mg/dL (0.15-1.2); Total Protein 5.8 g/dL (6.6-8.7)
[2019-07-03] MEDS: docusate sodium 100 mg Capsule PO (08:39)
[2019-07-03] MEDS: ciprofloxacin-dexameth Otic Susp 7.5 mL Btl 4 DROP EAR-BOTH ×2 (08:39→17:45)
[2019-07-03] MEDS: tamsulosin 0.4 mg Capsule PO (08:40)
[2019-07-03] MEDS: atorvastatin 40 mg Tablet 10 MG PO (08:40)
[2019-07-03] MEDS: metoprolol succinate ER (24 HR) 50 mg Tablet PO (08:40)
[2019-07-03] MEDS: azithromycin 250 mg Tablet PO (08:40)
[2019-07-03] MEDS: amiodarone 200 mg Tablet PO (08:40)
[2019-07-03] MEDS: clopidogrel 75 mg Tablet PO (08:40)
[2019-07-03] MEDS: losartan 50 mg Tablet 25 MG PO (08:41)
[2019-07-03] MEDS: potassium chloride premix 40 MEQ/100 ML PREMIX 25 MEQ IV (09:08)
[2019-07-03] MEDS: lidocaine 1% INJ 20 mL 5 ML IV (09:44)
[2019-07-03] MEDS: fluticasone nasal spray 16gm Btl 1 SPRAY NASAL (12:03)
[2019-07-03] MEDS: loratadine 10 mg Tablet PO (12:04)
--- NOTE | 2019-07-03 12:33 | PC.NURSE ---
Teaching Educated pt not to put any thing that could irritate his ear cannals, such as kleenex or his fingers due to inflammation. Pt verbalizes understanding.
--- NOTE | 2019-07-03 13:22 | P.PN_ITS ---
Subjective Subjective: Interval history: This morning patient states that he is feeling a lot better, his wheezing has gotten better, still on 2 L oxygen, is able to ambulate without significant symptomatology compared to yesterday, but his bilateral ears are bothering him Vitals/I&O/Wt Last Vital Signs Temp 97.7 F 07/03/19 12:00 Pulse 59 L 07/03/19 12:00 Resp 10 L 07/03/19 12:00 BP 106/51 07/03/19 12:00 Pulse Ox 93 07/03/19 12:00 07/02/19 07/03/19 07/03/19 22:59 06:59 14:59 Intake Total 168 / 418 120 / 538 444 / 444 Output Total 1450 / 1450 200 / 1650 1800 / 1800 Balance -1282 / -1032 -80 / -1112 -1356 / -1356 Weight last 48 hrs Weight 102.058 kg Physical Exam Const: COMMON NORMALS: no apparent distress and oriented x3 HENMT: COMMON NORMALS: normocephalic HEAD & SCALP: normocephalic Neck/C-Spine: COMMON NORMALS: no JVD Resp: COMMON NORMALS: normal respiratory effort, no retractions, no use of accessory muscles and clear to auscultation bilaterally AUSCULTATION: clear to auscultation bilaterally Cardio: COMMON NORMALS: no JVD, regular rate, regular rhythm, S1 normal heart sound and S2 normal heart sound RATE: regular rate RHYTHM: regular rhythm HEART SOUNDS: S1 normal and S2 normal GI: COMMON NORMALS: normal to inspection, nondistended, normoactive bowel sounds, soft to palpation, non-tender, no hepatosplenomegaly, no masses and no bruits PALPATION: Yes soft and Yes no hepatosplenomegaly Extremity: COMMON NORMALS: normal capillary refill, no clubbing, cyanosis or edema, no calf tenderness and no pedal edema Neuro: COMMON NORMALS: oriented x3 Psych: COMMON NORMALS: mental status grossly normal Data : 07/03/19 04:32 07/03/19 04:32 Micro: Microbiology 07/02/19 10:49 Blood Culture - Preliminary Blood NEGATIVE TO DATE 07/02/19 09:27 Blood Culture - Preliminary Blood NEGATIVE TO DATE A&P Assessment and plan (1) Acute respiratory failure with hypoxia: -Secondary to pneumonia and systolic and diastolic heart failure exacerbation -requiring 2L o2 -Patient's chest x-ray shows bilateral infiltrates, with pulmonary vascular congestion -CT chest shows bilateral pleural effusions, with pulmonary edema -BNP is in the 3000's, no significant leukocytosis, influenza test negative -No fevers, nonproductive cough -Patient is -2.463 L since admission Plan: -covid19 testing pending -Continue azithromycin and Rocephin -Albuterol nebulizer, budesonide -Lasix 40 mg IV twice daily -Monitor I's and O's, fluid restrictions 1500 cc Status: Acute (2) Abdominal aortic aneurysm (AAA): 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 No regional wall motion abnormalities. Moderate left ventricular hypertrophy. Grade I/IV diastolic dysfunction (abnormal relaxation filling pattern), normal to mildly elevated filling pressures. Thickened and stenotic aortic valve.moderate aortic valve calcification. Possibly low gradient severe aortic valve stenosis, with a valve area of 0.81 cm squared. Peak velocity of 3.3 m/s with a peak gradient of 43 and a mean gradient of 23 mmHg. Thickened mitral valve. Moderate mitral annular calcification. At least moderate eccentric mitral regurgitation with a jet directed posteriorly. Trace to mild tricuspid valve regurgitation. Estimated pulmonary artery peak systolic pressure 37 mmHg There is no pericardial effusion. There are no intracardiac masses. No previous study is available for comparison. -Uses Lasix 40 mg once daily at home -Has been urinating more frequently at home Status: Acute (5) ASHD (arteriosclerotic heart disease): -CAD status post stents to his LAD and ramus intermedius, his right coronary artery and circumflex artery are occluded, he has some collaterals from LAD, his last angiogram on July 2017 in [place] showed a second LAD stent was placed Status: Acute (6) Essential hypertension: Status: Acute (7) Hyperlipidemia: Status: Acute (8) S/P implantation of automatic cardioverter/defibrillator (AICD): Status: Acute (9) Otitis externa: -Start antibiotics eardrops bilaterally -We will add Flonase, and Claritin given component of postnasal drip and sinus congestion Status: Acute Attestations Medical Necessity Statement*: Sugar schedule hospitalization due to acute respiratory failure Coding Level of Care Code Acute Continuous Pillowcase Cutter for [facility] Diagnoses Acute respiratory failure with hypoxia J96.01 Abdominal aortic aneurysm (AAA) I71.4 SVT (supraventricular tachycardia) I47.1 Ischemic cardiomyopathy I25.5 ASHD (arteriosclerotic heart disease) I25.10 Essential hypertension I10 Hyperlipidemia E78.5 S/P implantation of automatic cardioverter/defibrillator (AICD) Z95.810 Otitis externa H60.90
[2019-07-03] MEDS: cefTRIAXone 1,000 MG in sodium chloride 0.9% (plus) 50 ML 100 MG IV (13:40)
[2019-07-03] MEDS: enoxaparin 40 mg/0.4 mL Syringe SUBCUT (13:40)
[2019-07-03] MEDS: budesonide 0.5 mg/2 mL Neb 0.25 MG INHALATION (19:31)
[2019-07-04] VITALS (12 sets, daily range): BP systolic 107–132; BP diastolic 55–70; PULSE 54–61; RESP 16–18; TEMP 36.8–36.9; O2SAT 92–97
[2019-07-04] MEDS: lidocaine 2% viscous 15 ML, aluminum-mag hydrox-simethicon 30 ML, sucralfate oral liq 1 GM PO (01:12)
--- NOTE | 2019-07-04 02:37 | PC.NURSE ---
Patient complaining of abdominal and epigastric pain without further radiating pain, stating it feels like he has heartburn or needs to pass gas. Describes the pain as a dull constant pain. Notified Dr. Alexis, orders received for GI cocktail. GI cocktail given, will continue to monitor patient.
[2019-07-04 03:42] LABS: Basophils % 0.6 %; Eosinophils # 0.2 10^3/uL (0.0-0.8); Eosinophils % 4.3 %; Hematocrit 31.6 % (42.0-52.0); Hemoglobin 10.1 g/dL (11.7-16.6); Lymphocytes # 0.4 10^3/uL (0.8-4.8); Lymphocytes % 10.6 %; Mean Corpuscular Hemoglobin 29.7 pg (28.0-34.0); Mean Corpuscular Volume 92.9 fL (80-94); Mean Platelet Volume 10.1 fL (7.4-10.4); Monocytes # 0.6 10^3/uL (0.2-0.9); Monocytes % 16.6 %; Neutrophils # 2.4 10^3/uL (1.8-7.7); Neutrophils % 67.6 %; Nucleated Red Blood Cells % 0 %; Platelet Count 130 10^3/cmm (130-400); Red Cell Distribution Width 14.7 % (12.1-15.1); White Blood Count 3.5 10^3/uL (4.0-10.0)
[2019-07-04 04:04] LABS: Phosphorus 4.2 mg/dL (2.5-4.5)
[2019-07-04 04:05] LABS: Alanine Aminotransferase 14 U/L (0-41); Albumin Level 3.4 g/dL (3.5-5.2); Alkaline Phosphatase 93 IU/L (40-130); Anion Gap 14.4 (5-19); Aspartate Amino Transferase 14 U/L (0-40); Blood Urea Nitrogen 16 mg/dL (8-23); Calcium 8.7 mg/dL (8.5-10.5); Carbon Dioxide 31 mmol/L (22-29); Chloride 94 mmol/L (98-107); Creatinine Clr Calc Pharmacy 61.8962; Globulin 2.6 g/dL (1.3-4.6); Glucose 91 mg/dL (65-115); Osmolality Calculated 278 mOsm/kg (285-295); Potassium 3.4 mmol/L (3.5-5.1); Sodium 136 mmol/L (136-145); Total Bilirubin 0.4 mg/dL (0.15-1.2)
[2019-07-04] MEDS: FUROsemide 10 mg/mL SDV 4mL 40 MG IVP (06:03)
[2019-07-04] MEDS: budesonide 0.5 mg/2 mL Neb 0.25 MG INHALATION (07:12)
[2019-07-04] MEDS: losartan 50 mg Tablet 25 MG PO (08:28)
[2019-07-04] MEDS: docusate sodium 100 mg Capsule PO (08:28)
[2019-07-04] MEDS: loratadine 10 mg Tablet PO (08:28)
[2019-07-04] MEDS: tamsulosin 0.4 mg Capsule PO (08:29)
[2019-07-04] MEDS: atorvastatin 40 mg Tablet 10 MG PO (08:29)
[2019-07-04] MEDS: ciprofloxacin-dexameth Otic Susp 7.5 mL Btl 4 DROP EAR-BOTH (08:29)
[2019-07-04] MEDS: amiodarone 200 mg Tablet PO (08:29)
[2019-07-04] MEDS: metoprolol succinate ER (24 HR) 50 mg Tablet PO (08:29)
[2019-07-04] MEDS: clopidogrel 75 mg Tablet PO (08:29)
[2019-07-04] MEDS: azithromycin 250 mg Tablet PO (08:29)
[2019-07-04] MEDS: fluticasone nasal spray 16gm Btl 1 SPRAY NASAL (08:30)
--- NOTE | 2019-07-04 14:59 | PM.DCS ---
Discharge Providers Date of Admission: 07/03/19 13:53 Date of Discharge: July 04, 2019 Attending Provider at Admission: Sreedhar Forrest MD Attending Provider at Discharge: Sreedhar Forrest MD Primary Care Provider: Ruth Malloyt Diagnoses at Discharge Discharge Diagnosis (1) Acute respiratory failure with hypoxia: Status: Acute (2) Abdominal aortic aneurysm (AAA): Status: Acute (3) SVT (supraventricular tachycardia): Status: Acute (4) Ischemic cardiomyopathy: Status: Acute (5) ASHD (arteriosclerotic heart disease): Status: Acute (6) Essential hypertension: Status: Acute (7) Hyperlipidemia: Status: Acute (8) S/P implantation of automatic cardioverter/defibrillator (AICD): Status: Acute Problem details: [facility] SINGLE CHAMBER 08/07 (9) Otitis externa: Status: Acute Reason for Visit Reason for Visit: Reason For Visit: PNEUMONIA, CHF Hospital Course Discharge Summary: Please see patient's H&P and progress notes for more details. Briefly the patient is a 83-year-old gentleman with past medical history of congestive heart failure with normal EF and COPD who presented with complaints of shortness of breath. No chest pain, cough, weakness, or palpitations. On admission he was found to have hypoxia and was diagnosed with acute respiratory failure secondary to CHF acute exacerbation. He quickly improved with IV Lasix. Today he reports that shortness of breath has resolved completely. Home O2 assessment was done and he did not qualify for supplemental oxygen. We are discharging him home with instructions to strictly follow fluid restriction and continue the same home medications and see his primary cotton bag clipper in about a week. He will also need to see his primary care physician in about 2 weeks. He verbalized understanding and agreement. He was also instructed to come back to emergency room if his symptoms worsen again or if he develops any new symptoms. The patient has cerumen impaction in the left ear and possible otitis externa. Debrox will be given prior to discharge. He will also receive prescription for antibiotic eardrops. Physical Exam Narrative: EXAM NARRATIVE: The patient is awake alert and oriented. No acute distress. Mood and affect are appropriate. Responses are adequate. Little hard of hearing. Skin is warm and dry. Moist extremities. Neck supple. No JVD Lungs clear bilaterally. No respiratory distress Heart S1, S2, regular Abdomen soft, nontender, bowel sounds are present extremities bilateral trace edema. No cyanosis no calf tenderness bilaterally good posterior tibialis pulses bilaterally symmetrically. Vital signs are reviewed and are stable. Discharge Data Data Completed and Pending: Completed Studies During Hospitalization Category Date Time Status CT chest wo con 7 1250 Routine Cat Scan 07/02/19 14:11 Completed XR chest 1V juan david ble [id number] Stat Exams 07/02/19 09:15 Completed Pending at discharge Category Date Time Status Blood Culture Sta t Lab 07/02/19 10:49 Results Complete Blood Co unt w/Auto AM LABS Lab 07/05/19 04:00 Ordered Complete Blood Co unt w/Auto AM LABS Lab 07/06/19 04:00 Ordered Comprehensive Met abolic Panel AM LA BS Lab 07/05/19 04:00 Ordered Comprehensive Met abolic Panel AM LA BS Lab 07/06/19 04:00 Ordered Magnesium AM LABS Lab 07/05/19 04:00 Ordered Phosphorus AM LAB S Lab 07/05/19 04:00 Ordered Renal Function Pa lindsey AM LABS Lab 07/05/19 04:00 Ordered Renal Function Pa lindsey AM LABS Lab 07/06/19 04:00 Ordered Labs from last 24 hours 07/04/19 07/04/19 07/04/19 03:15 03:15 03:15 WBC 3.5 L RBC 3.40 L Hgb 10.1 L Hct 31.6 L MCV 92.9 MCH 29.7 MCHC 32.0 RDW 14.7 Plt Count 130 MPV 10.1 Neut % (Auto) 67.6 Lymph % (Auto) 10.6 Wheeler % (Auto) 16.6 Eos % (Auto) 4.3 Baso % (Auto) 0.6 Neut # (Auto) 2.4 Lymph # (Auto) 0.4 L Wheeler # (Auto) 0.6 Eos # (Auto) 0.2 Baso # (Auto) 0.0 Nucleated RBC % (a uto) 0 Nucleated RBCs # 0.0 Sodium 136 Potassium 3.4 L Chloride 94 L Carbon Dioxide 31 H Anion Gap 14.4 BUN 16 Creatinine 1.1 Glucose 91 Calculated Osmolal ity 278 L Calcium 8.7 Phosphorus 4.2 Magnesium 2.0 Total Bilirubin 0.4 AST 14 ALT 14 Alkaline Phosphata se 93 Total Protein 6.0 L Albumin 3.4 L Globulin 2.6 Nasal/Oral COVID-1 9 PCR 07/02/19 12:56 WBC RBC Hgb Hct MCV MCH MCHC RDW Plt Count MPV Neut % (Auto) Lymph % (Auto) Wheeler % (Auto) Eos % (Auto) Baso % (Auto) Neut # (Auto) Lymph # (Auto) Wheeler # (Auto) Eos # (Auto) Baso # (Auto) Nucleated RBC % (a uto) Nucleated RBCs # Sodium Potassium Chloride Carbon Dioxide Anion Gap BUN Creatinine Glucose Calculated Osmolal ity Calcium Phosphorus Magnesium Total Bilirubin AST ALT Alkaline Phosphata se Total Protein Albumin Globulin Nasal/Oral COVID-1 9 PCR See comment Vitals: Last Vital Signs Temp 98.4 F 07/04/19 12:00 Pulse 60 07/04/19 12:00 Resp 18 07/04/19 12:00 BP 132/60 07/04/19 12:00 Pulse Ox 94 07/04/19 12:25 Discharge Plan Discharge Patient Disposition: Home, Self-Care Condition: Stable Prescriptions: New acetaminophen 325 mg Tablet 650 mg PO Q6H PRN (Reason: Mild/Mod Pain Or Temp >/= 101) Qty: 30 RF: 0 Lidoderm 5 % Adhesive Patch,Medicated 1 patch topical [id number] Qty: 10 RF: 0 Ciprodex 0.3-0.1 % Drops,Suspension 4 drp ear-both BID 7 Days Qty: 10 RF: 0 Continued finasteride 1 mg tablet 1 mg PO DAILY RF: 0 docusate sodium [Colace] 100 mg capsule 100 mg PO DAILY RF: 0 nitroglycerin [Nitrostat] 0.4 mg tablet, sublingual 0.4 mg SUBLINGUAL Q5M PRN (Reason: Chest Pain) RF: 0 tamsulosin 0.4 mg capsule 0.4 mg PO DAILY RF: 0 clopidogrel 75 mg tablet 75 mg PO DAILY RF: 0 magnesium oxide 400 mg magnesium tablet 400 mg PO DAILY PRN (Reason: prn) RF: 0 atorvastatin 10 mg tablet 10 mg PO DAILY RF: 0 potassium chloride 10 mEq capsule, extended release 10 meq PO DAILY RF: 0 amiodarone 200 mg tablet 200 mg PO DAILY Qty: 30 RF: 6 metoprolol succinate 50 mg capsule,sprinkle,ER 24hr 50 mg PO DAILY Qty: 30 RF: 6 furosemide 40 mg tablet 40 mg PO QAM 90 Days Qty: 90 RF: 3 valsartan 80 mg Tablet 80 mg PO DAILY RF: 0 Discharge Orders: Discharge Order (Routine); Ordered 07/04/19 Ordered By: Wai Meeks Referrals: Ryan Houser MD [Physician] - 4-7 days Ruth Chavez FNP [Primary Care Provider] - Discharge Diet: Cardiac and Low Cholesterol Discharge Activity: Increase activity as tolerated Activity Restrictions/Additional Instructions: Continue fluid restriction at 1.5 L/day of fluids. Please follow-up with Dr. Sims in a week. Please follow-up with your primary care physician in couple of weeks. Please return to emergency room if develop any new shortness of breath, any chest pain, cough, fevers or chills, nausea or vomiting, diarrhea, or any other new complaints. Discharge Attestations Time Spent in Discharge Care*: less than 30 min Quality Metrics Clinical Quality Measures During this hospital stay, did patient experience: None Coding Level of Care Code Acute Core Extruder for [facility] Fwd Diagnoses Acute respiratory failure with hypoxia J96.01 Abdominal aortic aneurysm (AAA) I71.4 SVT (supraventricular tachycardia) I47.1 Ischemic cardiomyopathy I25.5 ASHD (arteriosclerotic heart disease) I25.10 Essential hypertension I10 Hyperlipidemia E78.5 S/P implantation of automatic cardioverter/defibrillator (AICD) Z95.810 Otitis externa H60.90
[2019-07-04] MEDS: enoxaparin 40 mg/0.4 mL Syringe SUBCUT (15:07)
[2019-07-04] MEDS: carbamide peroxide Otic 15 mL Btl 5 DROP EAR-BOTH (15:08)
[2019-07-04] MEDS: cefTRIAXone 1,000 MG in sodium chloride 0.9% (plus) 50 ML 100 MG IV (15:10)
== END 2019-07-04 16:42 | disposition home or self-care (01) | DRG 291 ==
LOC: ER 13:31 → CSU 13:37
PROVIDERS: Admitting Provider Family Medicine; Emergency Provider Family Medicine; Family Provider Nurse Practitioner Family; PCP Nurse Practitioner Family; Visit Provider Family Medicine
DX: I11.0 Hypertensive heart disease with heart failure (principal); J18.9 Pneumonia, unspecified organism; J96.01 Acute respiratory failure with hypoxia; I47.1 Supraventricular tachycardia; Z79.02 Long term (current) use of antithrombotics/antiplatelets; I25.10 Atherosclerotic heart disease of native coronary artery without angina pectoris; I25.5 Ischemic cardiomyopathy; I71.4 Abdominal aortic aneurysm, without rupture; E78.5 Hyperlipidemia, unspecified; H60.90 Unspecified otitis externa, unspecified ear; Z95.810 Presence of automatic (implantable) cardiac defibrillator; I50.43 Acute on chronic combined systolic (congestive) and diastolic (congestive) heart failure; Z95.5 Presence of coronary angioplasty implant and graft; I27.20 Pulmonary hypertension, unspecified; K21.9 Gastro-esophageal reflux disease without esophagitis; E03.9 Hypothyroidism, unspecified; Z86.73 Personal history of transient ischemic attack (TIA), and cerebral infarction without residual deficits
CPT/HCPCS: 12345; 36415; 36600; 71045; 71250; 80053; 80061; 82728; 82803; 83036; 83605; 83615; 83690; 83735; 83880; 84100; 84145; 85025; 85378; 86140; 87040; 87635; 87804; 93005; 94640; 94664; 96372; 96375; 99282; G0378; J0456; J0696; J1650; J1940; J2001; J3480; J7050; J7611; J7626; Q0144

== ENCOUNTER 2019-07-22 15:18 | Emergency (ER) | payer MEDICARE, SELFPAY ==
[2019-07-22 15:24] VITALS: BP 87/42; PULSE 101; RESP 18; O2SAT 87; BMI 30.7
--- NOTE | 2019-07-22 15:39 | ECG_ITS ---
Measurements Intervals [place] Rate: 50 P: 57 IN: 216 QRS: -22 QRSD: 134 T: 11 QT: 602 QTc: 550 SINUS BRADYCARDIA WITH FIRST DEGREE AV BLOCK INTRAVENTRICULAR CONDUCTION DELAY [130+ ms QRS DURATION] MODERATE VOLTAGE CRITERIA FOR LVH, CONSIDER NORMAL VARIANT [MEETS CRITERIA IN ON ONE OF: R(aVL), S(V1), R(V5), R(V5/V6)+S(V1)] PROLONGED QT INTERVAL CRITICAL TEST RESULT Compared to ECG 07/02/2019 09:19:01 Prolonged QT interval now present Electronically Signed On 07-23-2019 16:19:[address] M.D. [id number]
--- NOTE | 2019-07-22 16:00 | W.ED.DIZZY ---
HPI - Dizziness General: Chief Complaint: Dizziness Stated Complaint: dizzy Time Seen by Provider: 07/22/19 15:37 Source: patient Mode of arrival: ambulatory Limitations: no limitations History of Present Illness: HPI Narrative: 83-year-old male who states that he has had low blood pressures at home over the last couple days along with generalized weakness and dizziness. 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 Patient is also on metoprolol as well. He states that he felt he had too much fluid on but he states that he feels like he is dehydrated. He denies any chest pain. He denies any fevers. He denies any syncopal episodes. Associated symptoms: Denies chest pain, chills, nausea or vomiting Review of Systems Const: Denies: fever, chills, body aches or change in appetite Eyes: Denies: blurry vision or eye discomfort ENMT: Denies: throat pain or dental pain Card: Denies: chest pain Resp: Denies: shortness of breath GI: Denies: abdominal pain, nausea, vomiting or diarrhea : Denies: painful urination Musc: Denies: neck pain or back pain Skin/Breast: Denies: rash Neuro: Reports: weakness in extremities Psych: Denies: depression Luis Alfredo/Lymph: Denies: easy bruising All/Imm: Denies: hives PFSH ED PFSH: Medical History Abdominal aortic aneurysm (AAA) Aortic valve disease Mild to moderate aortic stenosis ASHD (arteriosclerotic heart disease) CHF (congestive heart failure) Cognitive dysfunction Elevated PSA Essential hypertension GERD (gastroesophageal reflux disease) Hyperlipidemia Hypothyroidism Ischemic cardiomyopathy LVH (left ventricular hypertrophy) Prostate cancer Prostatic hypertrophy Pulmonary HTN SOB (shortness of breath) SVT (supraventricular tachycardia) TIA (transient ischemic attack) Ventricular tachycardia Surgical History S/P angioplasty with stent S/P implantation of automatic cardioverter/defibrillator (AICD) [facility] 08/07 Family History Father CAD (coronary artery disease) Mother CAD (coronary artery disease) CHF (congestive heart failure) Brother Parkinson disease Sister Fibromyalgia Social History Smoking and tobacco status: never smoked Alcohol intake: never Lives independently: Yes Marital status: / service: No Current occupational status: retired Current gender identity: Male 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 Physical Exam Const: COMMON NORMALS: no apparent distress, oriented x3 and healthy appearing HENMT: COMMON NORMALS: normocephalic and head/scalp atraumatic HEAD & SCALP: normocephalic and atraumatic Eye: COMMON NORMALS: PERRL and EOMs intact bilaterally PUPIL: Yes PERRL Neck/C-Spine: COMMON NORMALS: full ROM and supple Chest: COMMONS NORMALS: inspection of chest normal and palpation of chest normal Resp: COMMON NORMALS: normal respiratory effort, no retractions, no use of accessory muscles and clear to auscultation bilaterally AUSCULTATION: clear to auscultation bilaterally Cardio: COMMON NORMALS: regular rate, regular rhythm and no murmurs RATE: regular rate RHYTHM: regular rhythm GI: COMMON NORMALS: normal to inspection, nondistended, normoactive bowel sounds, soft to palpation, non-tender and no masses PALPATION: Yes soft Extremity: COMMON NORMALS: normal to inspection and full ROM Neuro: COMMON NORMALS: oriented x3, moves all extremities and no focal motor deficits Psych: COMMON NORMALS: mental status grossly normal, thought process normal and cooperative THOUGHT PROCESS: normal thought process Skin: COMMON NORMALS: no rashes or lesions noted and no wounds GENERAL SKIN EXAM: no rashes or lesions noted Course Vital Signs: Vital signs: Vital Signs Pulse Rate 52 L 07/22/19 19:19 Respiratory Rate 19 H 07/22/19 19:19 Blood Pressure 148/87 07/22/19 19:19 Pulse Oximetry 97 07/22/19 19:19 MDM - Dizziness MDM Narrative: Medical decision making narrative: Patient presents with near syncope along with low blood pressure likely due to his blood pressure medicines. Patient's blood pressure here is much improved after IV fluids. Patient's first troponin is 129 and will trend with 2-hour troponin. Patient's care turned over to Dr. Barkley at this time to follow troponin. Lab Data: Labs: Lab Results 05/01/20 05/01/20 05/01/20 Range/Units 15:40 15:40 15:40 WBC 6.7 (4.0-10.0) 10^3/ uL RBC 4.59 (4.1-5.3) 10^6/u L Hgb 13.3 (11.7-16.6) g/dL Hct 42.0 (42.0-52.0) % MCV 91.5 (80-94) fL MCH 29.0 (28.0-34.0) pg MCHC 31.7 (30.0-36.0) g/dL RDW 14.6 (12.1-15.1) % Plt Count 231 (130-400) 10^3/c mm MPV 9.9 (7.4-10.4) fL Neut % (Auto) 75.4 % Lymph % (Auto) 7.8 % [place] % (Auto) 13.9 % Eos % (Auto) 1.9 % Baso % (Auto) 0.9 % Neut # (Auto) 5.0 (1.8-7.7) 10^3/u L Lymph # (Auto) 0.5 L (0.8-4.8) 10^3/u L [place] # (Auto) 0.9 (0.2-0.9) 10^3/u L Eos # (Auto) 0.1 (0.0-0.8) 10^3/u L Baso # (Auto) 0.1 (0.0-0.1) 10^3/u L Nucleated RBC % (a uto) 0 % Nucleated RBCs # 0.0 /100WBC Sodium 134 L (136-145) mmol/L Potassium 3.5 (3.5-5.1) mmol/L Chloride 87 L (98-107) mmol/L Carbon Dioxide 34 H (22-29) mmol/L Anion Gap 16.5 (5-19) BUN 28 H (8-23) mg/dL Creatinine 2.0 H (0.7-1.2) mg/dL Glucose 140 H (65-115) mg/dL Calculated Osmolal ity 277 L (285-295) mOsm/k g Calcium 9.7 (8.5-10.5) mg/dL Total Bilirubin 0.6 (0.15-1.2) mg/dL AST 30 (0-40) U/L ALT 25 (0-41) U/L Alkaline Phosphata se 120 (40-130) IU/L Troponin T Baselin e 132 H* (0-15) ng/mL Troponin T 120 Min point [place] (0-15) ng/mL Delta Troponin T (0-10) ABS# Total Protein 6.9 (6.6-8.7) g/dL Albumin 4.2 (3.5-5.2) g/dL Globulin 2.7 (1.3-4.6) g/dL 07/22/19 Range/Units 17:45 WBC (4.0-10.0) 10^3/ uL RBC (4.1-5.3) 10^6/u L Hgb (11.7-16.6) g/dL Hct (42.0-52.0) % MCV (80-94) fL MCH (28.0-34.0) pg MCHC (30.0-36.0) g/dL RDW (12.1-15.1) % Plt Count (130-400) 10^3/c mm MPV (7.4-10.4) fL Neut % (Auto) % Lymph % (Auto) % [place] % (Auto) % Eos % (Auto) % Baso % (Auto) % Neut # (Auto) (1.8-7.7) 10^3/u L Lymph # (Auto) (0.8-4.8) 10^3/u L [place] # (Auto) (0.2-0.9) 10^3/u L Eos # (Auto) (0.0-0.8) 10^3/u L Baso # (Auto) (0.0-0.1) 10^3/u L Nucleated RBC % (a uto) % Nucleated RBCs # /100WBC Sodium (136-145) mmol/L Potassium (3.5-5.1) mmol/L Chloride (98-107) mmol/L Carbon Dioxide (22-29) mmol/L Anion Gap (5-19) BUN (8-23) mg/dL Creatinine (0.7-1.2) mg/dL Glucose (65-115) mg/dL Calculated Osmolal ity (285-295) mOsm/k g Calcium (8.5-10.5) mg/dL Total Bilirubin (0.15-1.2) mg/dL AST (0-40) U/L ALT (0-41) U/L Alkaline Phosphata se (40-130) IU/L Troponin T Baselin e (0-15) ng/mL Troponin T 120 Min point [place] 116.0 H (0-15) ng/mL Delta Troponin T -16.0 L (0-10) ABS# Total Protein (6.6-8.7) g/dL Albumin (3.5-5.2) g/dL Globulin (1.3-4.6) g/dL Imaging Data^: CXR: Radiologist's impression: [place] [address] XRay Report Signed Patient: Roland Diaz Unit #: [id number] : 1935 Age/Sex: 83 / M ADM Date: 07/22/19 Loc: ER Room/Bed: Attending Dr: Ordering Provider/Ordering MD: Horacio Carreon MD Date of Service: 07/22/19 Procedure(s): XR chest 1V portable [id number] Accession Number(s): [id number] Report Number: [id number] WS: [id number] PORTABLE CHEST HISTORY: dyspnea COMPARISON: 07/02/2019 Single lead LEFT subclavian pacer. Linear bandlike areas of atelectasis at the lung bases. No pneumonia. Improved aeration as compared to the prior study. No pleural effusion or pneumothorax. Cardiac size: Mildly enlarged cardiac silhouette. Mediastinum/Aorta: Mildly ectatic aorta. No osseous abnormality seen. XR/XR chest 1V portable [id number] IMPRESSION: Subsegmental atelectasis at the lung bases. No pneumonia. EKG Data^: EKG 1: Attestation: I personally reviewed and interpreted this EKG as follows: EKG interpretation date: 07/22/19 EKG interpretation time: 15:44 Interpretation: sinus ivan hr [address] or t wave abnormalities qrs 134 qtc 574 Discharge Plan Discharge Patient Disposition: Home, Self-Care Clinical Impression: Acute hypotension CHF (congestive heart failure) Qualifiers: Heart failure type: systolic Heart failure chronicity: chronic Qualified Code(s): I50.22 - Chronic systolic (congestive) heart failure Condition: Stable Prescriptions: New metoprolol succinate 25 mg capsule,sprinkle,ER 24hr 25 mg PO DAILY Qty: 30 RF: 0 Discontinued metoprolol succinate 50 mg capsule,sprinkle,ER 24hr 50 mg PO DAILY Qty: 30 RF: 6 No Action finasteride 1 mg tablet 1 mg PO DAILY RF: 0 docusate sodium [Colace] 100 mg capsule 100 mg PO DAILY RF: 0 nitroglycerin [Nitrostat] 0.4 mg tablet, sublingual 0.4 mg SUBLINGUAL Q5M PRN (Reason: Chest Pain) RF: 0 tamsulosin 0.4 mg capsule 0.4 mg PO DAILY RF: 0 clopidogrel 75 mg tablet 75 mg PO DAILY RF: 0 magnesium oxide 400 mg magnesium tablet 400 mg PO DAILY PRN (Reason: prn) RF: 0 atorvastatin 10 mg tablet 10 mg PO DAILY RF: 0 potassium chloride 10 mEq capsule, extended release 10 meq PO DAILY RF: 0 amiodarone 200 mg tablet 200 mg PO DAILY Qty: 30 RF: 6 furosemide 40 mg tablet 40 mg PO QAM 90 Days Qty: 90 RF: 3 sacubitril-valsartan 24-26 mg tablet 1 tab PO BID Qty: 180 RF: 2 metolazone 2.5 mg tablet 2.5 mg PO DAILY Qty: 7 RF: 1 acetaminophen 325 mg Tablet 650 mg PO Q6H PRN (Reason: Mild/Mod Pain Or Temp >/= 101) Qty: 30 RF: 0 Lidoderm 5 % Adhesive Patch,Medicated 1 patch topical [id number] Qty: 10 RF: 0 Discharge Orders: Discharge Order (Routine); Ordered 07/22/19 Ordered By: Trung Barkley Referrals: Ruth Chavez DIRECTOR OF MEDIA [Primary Care Provider] - 4-7 days Discharge Diet: Usual diet Discharge Activity: Increase activity as tolerated Patient Instructions: Hypotension (ED) Activity Restrictions/Additional Instructions: Your blood pressure and heart rate were low in the emergency room. Decrease your metoprolol from 50 mg to 25 mg daily as instructed. Only take the 40 mg of furosemide once daily. See your doctor in a couple of days. Check your blood pressure and heart rate twice daily until seen. Return for worsening dizziness, low blood pressure, syncope or passing out, chest discomfort, other concerning symptoms. Discharge Date/Time: 07/22/19 19:23 Coding Level of Care Code ED Cardroom Hand for Chg Fwd Exam Comprehensive
--- NOTE | 2019-07-22 16:01 | XR_ITS ---
WS: [id number] PORTABLE CHEST HISTORY: dyspnea COMPARISON: 07/02/2019 Single lead LEFT subclavian pacer. Linear bandlike areas of atelectasis at the lung bases. No pneumonia. Improved aeration as compared t o the prior study. No pleural effusion or pneumothorax. Cardiac size: Mildly enlarged cardiac silhouette. Mediastinum/Aorta: Mildly ectatic aorta. No osseous abnormality seen. XR/XR chest 1V portable [id number] IMPRESSION: Subsegmental atelectasis at the lung bases. No pneumonia.
[2019-07-22] MEDS: sodium chloride 0.9% 500 ML IV (16:06)
[2019-07-22 16:12] LABS: Basophils # 0.1 10^3/uL (0.0-0.1); Basophils % 0.9 %; Eosinophils # 0.1 10^3/uL (0.0-0.8); Eosinophils % 1.9 %; Hemoglobin 13.3 g/dL (11.7-16.6); Lymphocytes # 0.5 10^3/uL (0.8-4.8); Lymphocytes % 7.8 %; Mean Corpuscular HGB Conc 31.7 g/dL (30.0-36.0); Mean Corpuscular Volume 91.5 fL (80-94); Mean Platelet Volume 9.9 fL (7.4-10.4); Monocytes # 0.9 10^3/uL (0.2-0.9); Monocytes % 13.9 %; Neutrophils % 75.4 %; Nucleated Red Blood Cells % 0 %; Platelet Count 231 10^3/cmm (130-400); Red Blood Count 4.59 10^6/uL (4.1-5.3); Red Cell Distribution Width 14.6 % (12.1-15.1); White Blood Count 6.7 10^3/uL (4.0-10.0)
[2019-07-22 16:15] LABS: Alanine Aminotransferase 25 U/L (0-41); Albumin Level 4.2 g/dL (3.5-5.2); Alkaline Phosphatase 120 IU/L (40-130); Anion Gap 16.5 (5-19); Aspartate Amino Transferase 30 U/L (0-40); Blood Urea Nitrogen 28 mg/dL (8-23); Calcium 9.7 mg/dL (8.5-10.5); Carbon Dioxide 34 mmol/L (22-29); Chloride 87 mmol/L (98-107); Globulin 2.7 g/dL (1.3-4.6); Glucose 140 mg/dL (65-115); Osmolality Calculated 277 mOsm/kg (285-295); Potassium 3.5 mmol/L (3.5-5.1); Sodium 134 mmol/L (136-145); Total Bilirubin 0.6 mg/dL (0.15-1.2); Total Protein 6.9 g/dL (6.6-8.7)
[2019-07-22 16:40] LABS: Troponin(5th) Baseline 132 ng/mL (0-15)
[2019-07-22 19:19] VITALS: BP 148/87; PULSE 52; RESP 19; O2SAT 97
== END 2019-07-22 19:23 | disposition home or self-care (01) ==
PROVIDERS: Nurse Practitioner Family; Emergency Provider Emergency Medicine; Family Provider Nurse Practitioner Family; PCP Nurse Practitioner Family
DX: I50.22 Chronic systolic (congestive) heart failure (principal); I95.9 Hypotension, unspecified; Z79.02 Long term (current) use of antithrombotics/antiplatelets; I11.0 Hypertensive heart disease with heart failure; K21.9 Gastro-esophageal reflux disease without esophagitis; E78.5 Hyperlipidemia, unspecified; E03.9 Hypothyroidism, unspecified; Z85.46 Personal history of malignant neoplasm of prostate; Z86.73 Personal history of transient ischemic attack (TIA), and cerebral infarction without residual deficits
CPT/HCPCS: 12345; 36415; 71045; 80053; 84484; 85025; 93005; 96360; 96361; 99283; J7040

== ENCOUNTER 2019-07-23 16:56 | Inpatient (IN) | payer MEDICARE, SELFPAY ==
[2019-07-23 16:59] VITALS: BP 97/47; PULSE 52; RESP 17; TEMP 36.6; O2SAT 96; BMI 31.4
--- NOTE | 2019-07-23 17:04 | W.ED.GENADLT ---
Documented by User: Zac Farrell DO 07/25/19 06:19 HPI - General Adult General: Chief complaint: General Medical Stated complaint: HYPOTENSION; DIZZY; WEAK Time Seen by Provider: 07/23/19 16:57 History of Present Illness: HPI narrative: 83-year-old male comes into the emergency room via EMS complaining of dizziness and low blood pressure. Initial blood pressure for EMS a 76/35 they gave him with 150 mL bolus and improved 95-97 systolic. He was seen yesterday for the same thing he recently had an increase his metoprolol and Lasix. He was resuscitated with 500 cc normal saline and was doing well and was discharged home he lives at home alone. Today felt very weak he said he actually felt worse today than he did yesterday but he denied having any chest pain did have a little bit of a headache no nausea vomiting or diarrhea no cough no dyspnea he denies any orthopnea but states he cannot lie flat because his reflux bothers him too much. No other recent illness denies any injury denies any falls as a result of the dizziness or lightheadedness. Onset (ago): day(s) (1) Severity: moderate Relieving factors: rest Exacerbating factors: movement Associated symptoms: Reports headache(s) and weakness; Deny chest pain, confusion, cough, diaphoresis, decreased appetite, dyspnea, fevers/chills, malaise, nausea, rash, palpitations or seizures Review of Systems Const: Denies: malaise or diaphoresis ENMT: Denies: throat pain, ear pain, nasal discharge or nasal congestion Card: Denies: chest pain or palpitations Resp: Denies: shortness of breath GI: Denies: nausea : Denies: flank pain, painful urination, urinary frequency or urinary urgency Skin/Breast: Denies: rash or itching Neuro: Reports: headache; Denies: confusion [facility] ED PFSH: Medical History (Updated 07/25/19 @ 06:19 by Zac Farrell DO) Abdominal aortic aneurysm (AAA) 4.3?4.3 approximately 5.04?5.04 distally Aortic stenosis ASHD (arteriosclerotic heart disease) CHF (congestive heart failure) iscHemic cardiomyopathy with preserved ejection fraction Cognitive dysfunction Elevated PSA Essential hypertension GERD (gastroesophageal reflux disease) Hyperlipidemia Hypothyroidism Ischemic cardiomyopathy EF 58%, grade 1/4 diastolic dysfunction, moderate aortic valve calcification, LVH (left ventricular hypertrophy) Prostate cancer Prostatic hypertrophy Pulmonary HTN SOB (shortness of breath) SVT (supraventricular tachycardia) TIA (transient ischemic attack) Ventricular tachycardia Status post AICD placement Surgical History S/P angioplasty with stent Coronary disease status post 3 stents S/P implantation of automatic cardioverter/defibrillator (AICD) [employer] 08/07 Family History Father CAD (coronary artery disease) Mother CAD (coronary artery disease) CHF (congestive heart failure) Brother Parkinson disease Sister Fibromyalgia Social History Smoking and tobacco status: former smoker Alcohol intake: never Lives independently: Yes Marital status: / service: No Current occupational status: retired Current gender identity: Male Gillian/Restoration: Sikh Physical Exam Const: COMMON NORMALS: no apparent distress GENERAL APPEARANCE: cooperative and comfortable ORIENTATION/CONSCIOUSNESS: Yes awake, Yes oriented to person, Yes oriented to place and Yes oriented to time HENMT: COMMON NORMALS: normocephalic, head/scalp atraumatic, hearing grossly normal bilaterally, external ears normal, EAC's normal, TM's normal bilaterally, nasal mucous membranes and turbinates normal, moist oral mucous membranes and oropharynx normal HEAD & SCALP: normocephalic and atraumatic NOSE: nasal mucous membranes and turbinates normal EXTERNAL EAR: Yes external ears normal EXTERNAL AUDITORY CANAL: EAC's normal TYMPANIC MEMBRANE: TM's normal bilaterally Eye: COMMON NORMALS: PERRL, EOMs intact bilaterally, conjunctivae normal and no scleral icterus CONJUNCTIVA: Yes conjunctivae normal PUPIL: Yes PERRL Neck/C-Spine: COMMON NORMALS: full ROM, no lymphadenopathy, supple and no JVD Lymph: LYMPHATIC: no lymphadenopathy noted and no lymphedema noted Resp: COMMON NORMALS: normal respiratory effort, no retractions, no use of accessory muscles and clear to auscultation bilaterally AUSCULTATION: clear to auscultation bilaterally Cardio: COMMON NORMALS: no JVD, regular rate, regular rhythm and no murmurs RATE: regular rate RHYTHM: regular rhythm GI: COMMON NORMALS: soft to palpation and no hepatosplenomegaly AUSCULTATION: Yes normoactive bowel sounds PALPATION: Yes soft, No tender, No guarding and Yes no hepatosplenomegaly Extremity: COMMON NORMALS: normal to inspection, normal capillary refill, no clubbing, cyanosis or edema, no calf tenderness and no pedal edema Neuro: SENSORIUM/ORIENTATION: Yes oriented to person, Yes oriented to place and Yes oriented to time Skin: COMMON NORMALS: no rashes or lesions noted GENERAL SKIN EXAM: no rashes or lesions noted Course Vital Signs: Vital signs: Vital Signs Temperature 97.5 F L 07/25/19 04:00 Pulse Rate 55 L 07/25/19 04:00 Respiratory Rate 20 H 07/25/19 04:00 Blood Pressure 146/67 07/25/19 04:00 Pulse Oximetry 95 07/25/19 04:00 MDM - General Adult MDM Narrative: Medical decision making narrative: Care transferred to Dr. Barkley at change of shift Lab Data: Labs: Lab Results 07/23/19 07/23/19 07/23/19 Range/Units 16:43 16:43 16:43 WBC 5.5 (4.0-10.0) 10^3/ uL RBC 4.44 (4.1-5.3) 10^6/u L Hgb 13.0 (11.7-16.6) g/dL Hct 40.3 L (42.0-52.0) % MCV 90.8 (80-94) fL MCH 29.3 (28.0-34.0) pg MCHC 32.3 (30.0-36.0) g/dL RDW 14.5 (12.1-15.1) % Plt Count 218 (130-400) 10^3/c mm MPV 10.2 (7.4-10.4) fL Neut % (Auto) 69.4 % Lymph % (Auto) 10.0 % Preble % (Auto) 16.6 % Eos % (Auto) 2.7 % Baso % (Auto) 0.9 % Neut # (Auto) 3.8 (1.8-7.7) 10^3/u L Lymph # (Auto) 0.6 L (0.8-4.8) 10^3/u L Preble # (Auto) 0.9 (0.2-0.9) 10^3/u L Eos # (Auto) 0.2 (0.0-0.8) 10^3/u L Baso # (Auto) 0.1 (0.0-0.1) 10^3/u L Nucleated RBC % (a uto) 0 % Nucleated RBCs # 0.0 /100WBC Sodium 135 L (136-145) mmol/L Potassium 3.4 L (3.5-5.1) mmol/L Chloride 89 L (98-107) mmol/L Carbon Dioxide 29 (22-29) mmol/L Anion Gap 20.4 H (5-19) BUN 33 H (8-23) mg/dL Creatinine 2.2 H (0.7-1.2) mg/dL Glucose 111 (65-115) mg/dL Calculated Osmolal ity 278 L (285-295) mOsm/k g Calcium 9.6 (8.5-10.5) mg/dL Magnesium (1.7-2.3) mg/dL Total Bilirubin 0.6 (0.15-1.2) mg/dL AST 31 (0-40) U/L ALT 27 (0-41) U/L Alkaline Phosphata se 109 (40-130) IU/L Creatine Kinase 42 (39-308) U/L Troponin T Baselin e 165 H* (0-15) ng/mL Troponin T 120 Min resighini (0-15) ng/mL Delta Troponin T (0-10) ABS# NT-Pro-B Natriuret Pep (0-450) pg/mL Total Protein 6.9 (6.6-8.7) g/dL Albumin 4.0 (3.5-5.2) g/dL Globulin 2.9 (1.3-4.6) g/dL 07/23/19 07/23/19 07/23/19 Range/Units 16:43 16:43 18:55 WBC (4.0-10.0) 10^3/ uL RBC (4.1-5.3) 10^6/u L Hgb (11.7-16.6) g/dL Hct (42.0-52.0) % MCV (80-94) fL MCH (28.0-34.0) pg MCHC (30.0-36.0) g/dL RDW (12.1-15.1) % Plt Count (130-400) 10^3/c mm MPV (7.4-10.4) fL Neut % (Auto) % Lymph % (Auto) % Preble % (Auto) % Eos % (Auto) % Baso % (Auto) % Neut # (Auto) (1.8-7.7) 10^3/u L Lymph # (Auto) (0.8-4.8) 10^3/u L Preble # (Auto) (0.2-0.9) 10^3/u L Eos # (Auto) (0.0-0.8) 10^3/u L Baso # (Auto) (0.0-0.1) 10^3/u L Nucleated RBC % (a uto) % Nucleated RBCs # /100WBC Sodium (136-145) mmol/L Potassium (3.5-5.1) mmol/L Chloride (98-107) mmol/L Carbon Dioxide (22-29) mmol/L Anion Gap (5-19) BUN (8-23) mg/dL Creatinine (0.7-1.2) mg/dL Glucose (65-115) mg/dL Calculated Osmolal ity (285-295) mOsm/k g Calcium (8.5-10.5) mg/dL Magnesium 2.6 H (1.7-2.3) mg/dL Total Bilirubin (0.15-1.2) mg/dL AST (0-40) U/L ALT (0-41) U/L Alkaline Phosphata se (40-130) IU/L Creatine Kinase (39-308) U/L Troponin T Baselin e (0-15) ng/mL Troponin T 120 Min resighini 137.8 H (0-15) ng/mL Delta Troponin T -27.2 L (0-10) ABS# NT-Pro-B Natriuret Pep 580 H (0-450) pg/mL Total Protein (6.6-8.7) g/dL Albumin (3.5-5.2) g/dL Globulin (1.3-4.6) g/dL 07/24/19 07/24/19 Range/Units 04:48 04:48 WBC 4.9 (4.0-10.0) 10^3/ uL RBC 4.02 L (4.1-5.3) 10^6/u L Hgb 11.7 (11.7-16.6) g/dL Hct 36.8 L (42.0-52.0) % MCV 91.5 (80-94) fL MCH 29.1 (28.0-34.0) pg MCHC 31.8 (30.0-36.0) g/dL RDW 14.6 (12.1-15.1) % Plt Count 160 (130-400) 10^3/c mm MPV 9.9 (7.4-10.4) fL Neut % (Auto) 65.4 % Lymph % (Auto) 12.1 % Preble % (Auto) 17.4 % Eos % (Auto) 4.1 % Baso % (Auto) 0.8 % Neut # (Auto) 3.2 (1.8-7.7) 10^3/u L Lymph # (Auto) 0.6 L (0.8-4.8) 10^3/u L Preble # (Auto) 0.9 (0.2-0.9) 10^3/u L Eos # (Auto) 0.2 (0.0-0.8) 10^3/u L Baso # (Auto) 0.0 (0.0-0.1) 10^3/u L Nucleated RBC % (a uto) 0 % Nucleated RBCs # 0.0 /100WBC Sodium 139 (136-145) mmol/L Potassium 3.1 L (3.5-5.1) mmol/L Chloride 96 L (98-107) mmol/L Carbon Dioxide 33 H (22-29) mmol/L Anion Gap 13.1 (5-19) BUN 31 H (8-23) mg/dL Creatinine 1.7 H (0.7-1.2) mg/dL Glucose 90 (65-115) mg/dL Calculated Osmolal ity 285 (285-295) mOsm/k g Calcium 8.8 (8.5-10.5) mg/dL Magnesium (1.7-2.3) mg/dL Total Bilirubin (0.15-1.2) mg/dL AST (0-40) U/L ALT (0-41) U/L Alkaline Phosphata se (40-130) IU/L Creatine Kinase (39-308) U/L Troponin T Baselin e (0-15) ng/mL Troponin T 120 Min resighini (0-15) ng/mL Delta Troponin T (0-10) ABS# NT-Pro-B Natriuret Pep (0-450) pg/mL Total Protein (6.6-8.7) g/dL Albumin (3.5-5.2) g/dL Globulin (1.3-4.6) g/dL Discharge Plan Discharge Patient Disposition: Placed in Observation Admit Provider: Tarah Alexis Clinical Impression: Acute hypotension, Ischemic cardiomyopathy, Aortic stenosis, Bradycardia Condition: Stable Interventions: ED Discharge Assessment Last Done: 07/23/19 20:02 ED Charges Last Done: 07/23/19 20:02 Discharge Date/Time: 07/23/19 20:05 Coding Level of Care Code ED Sales Account Coordinator for Chg Fwd Exam Comprehensive Documented by User: Trung Barkley DO 07/23/19 19:24 HPI - General Adult General: Chief complaint: General Medical Stated complaint: HYPOTENSION; DIZZY; WEAK Time Seen by Provider: 07/23/19 16:57 [facility] ED PFSH: Medical History (Updated 07/25/19 @ 06:19 by Zac Farrell DO) Abdominal aortic aneurysm (AAA) 4.3?4.3 approximately 5.04?5.04 distally Aortic stenosis ASHD (arteriosclerotic heart disease) CHF (congestive heart failure) iscHemic cardiomyopathy with preserved ejection fraction Cognitive dysfunction Elevated PSA Essential hypertension GERD (gastroesophageal reflux disease) Hyperlipidemia Hypothyroidism Ischemic cardiomyopathy EF 58%, grade 1/4 diastolic dysfunction, moderate aortic valve calcification, LVH (left ventricular hypertrophy) Prostate cancer Prostatic hypertrophy Pulmonary HTN SOB (shortness of breath) SVT (supraventricular tachycardia) TIA (transient ischemic attack) Ventricular tachycardia Status post AICD placement Surgical History S/P angioplasty with stent Coronary disease status post 3 stents S/P implantation of automatic cardioverter/defibrillator (AICD) [employer] 08/07 Family History Father CAD (coronary artery disease) Mother CAD (coronary artery disease) CHF (congestive heart failure) Brother Parkinson disease Sister Fibromyalgia Social History Smoking and tobacco status: former smoker Alcohol intake: never Lives independently: Yes Marital status: / service: No Current occupational status: retired Current gender identity: Male Gillian/Restoration: Sikh Course Consultations: Consultation #1: [email or web address] Time: 19:24 Vital Signs: Vital signs: Vital Signs Temperature 97.5 F L 07/25/19 04:00 Pulse Rate 55 L 07/25/19 04:00 Respiratory Rate 20 H 07/25/19 04:00 Blood Pressure 146/67 07/25/19 04:00 Pulse Oximetry 95 07/25/19 04:00 MDM - General Adult MDM Narrative: Medical decision making narrative: 83-year-old gentleman checked out to me by Dr. Farrell. I saw this patient yesterday. He was seen yesterday with hypotension and bradycardia, his metoprolol dose was cut, he was given some fluid which improved his hypotension, and he was feeling better. Today, he presents with similar complaints of generalized weakness and bradycardia and hypotension despite being off the metoprolol. His renal function is worse. His troponin is up from yesterday. He will be placed in observation given some fluids overnight Lab Data: Labs: Lab Results 07/23/19 07/23/19 07/23/19 Range/Units 16:43 16:43 16:43 WBC 5.5 (4.0-10.0) 10^3/ uL RBC 4.44 (4.1-5.3) 10^6/u L Hgb 13.0 (11.7-16.6) g/dL Hct 40.3 L (42.0-52.0) % MCV 90.8 (80-94) fL MCH 29.3 (28.0-34.0) pg MCHC 32.3 (30.0-36.0) g/dL RDW 14.5 (12.1-15.1) % Plt Count 218 (130-400) 10^3/c mm MPV 10.2 (7.4-10.4) fL Neut % (Auto) 69.4 % Lymph % (Auto) 10.0 % Preble % (Auto) 16.6 % Eos % (Auto) 2.7 % Baso % (Auto) 0.9 % Neut # (Auto) 3.8 (1.8-7.7) 10^3/u L Lymph # (Auto) 0.6 L (0.8-4.8) 10^3/u L Preble # (Auto) 0.9 (0.2-0.9) 10^3/u L Eos # (Auto) 0.2 (0.0-0.8) 10^3/u L Baso # (Auto) 0.1 (0.0-0.1) 10^3/u L Nucleated RBC % (a uto) 0 % Nucleated RBCs # 0.0 /100WBC Sodium 135 L (136-145) mmol/L Potassium 3.4 L (3.5-5.1) mmol/L Chloride 89 L (98-107) mmol/L Carbon Dioxide 29 (22-29) mmol/L Anion Gap 20.4 H (5-19) BUN 33 H (8-23) mg/dL Creatinine 2.2 H (0.7-1.2) mg/dL Glucose 111 (65-115) mg/dL Calculated Osmolal ity 278 L (285-295) mOsm/k g Calcium 9.6 (8.5-10.5) mg/dL Magnesium (1.7-2.3) mg/dL Total Bilirubin 0.6 (0.15-1.2) mg/dL AST 31 (0-40) U/L ALT 27 (0-41) U/L Alkaline Phosphata se 109 (40-130) IU/L Creatine Kinase 42 (39-308) U/L Troponin T Baselin e 165 H* (0-15) ng/mL Troponin T 120 Min resighini (0-15) ng/mL Delta Troponin T (0-10) ABS# NT-Pro-B Natriuret Pep (0-450) pg/mL Total Protein 6.9 (6.6-8.7) g/dL Albumin 4.0 (3.5-5.2) g/dL Globulin 2.9 (1.3-4.6) g/dL 07/23/19 07/23/19 07/23/19 Range/Units 16:43 16:43 18:55 WBC (4.0-10.0) 10^3/ uL RBC (4.1-5.3) 10^6/u L Hgb (11.7-16.6) g/dL Hct (42.0-52.0) % MCV (80-94) fL MCH (28.0-34.0) pg MCHC (30.0-36.0) g/dL RDW (12.1-15.1) % Plt Count (130-400) 10^3/c mm MPV (7.4-10.4) fL Neut % (Auto) % Lymph % (Auto) % Preble % (Auto) % Eos % (Auto) % Baso % (Auto) % Neut # (Auto) (1.8-7.7) 10^3/u L Lymph # (Auto) (0.8-4.8) 10^3/u L Preble # (Auto) (0.2-0.9) 10^3/u L Eos # (Auto) (0.0-0.8) 10^3/u L Baso # (Auto) (0.0-0.1) 10^3/u L Nucleated RBC % (a uto) % Nucleated RBCs # /100WBC Sodium (136-145) mmol/L Potassium (3.5-5.1) mmol/L Chloride (98-107) mmol/L Carbon Dioxide (22-29) mmol/L Anion Gap (5-19) BUN (8-23) mg/dL Creatinine (0.7-1.2) mg/dL Glucose (65-115) mg/dL Calculated Osmolal ity (285-295) mOsm/k g Calcium (8.5-10.5) mg/dL Magnesium 2.6 H (1.7-2.3) mg/dL Total Bilirubin (0.15-1.2) mg/dL AST (0-40) U/L ALT (0-41) U/L Alkaline Phosphata se (40-130) IU/L Creatine Kinase (39-308) U/L Troponin T Baselin e (0-15) ng/mL Troponin T 120 Min resighini 137.8 H (0-15) ng/mL Delta Troponin T -27.2 L (0-10) ABS# NT-Pro-B Natriuret Pep 580 H (0-450) pg/mL Total Protein (6.6-8.7) g/dL Albumin (3.5-5.2) g/dL Globulin (1.3-4.6) g/dL 07/24/19 07/24/19 Range/Units 04:48 04:48 WBC 4.9 (4.0-10.0) 10^3/ uL RBC 4.02 L (4.1-5.3) 10^6/u L Hgb 11.7 (11.7-16.6) g/dL Hct 36.8 L (42.0-52.0) % MCV 91.5 (80-94) fL MCH 29.1 (28.0-34.0) pg MCHC 31.8 (30.0-36.0) g/dL RDW 14.6 (12.1-15.1) % Plt Count 160 (130-400) 10^3/c mm MPV 9.9 (7.4-10.4) fL Neut % (Auto) 65.4 % Lymph % (Auto) 12.1 % Preble % (Auto) 17.4 % Eos % (Auto) 4.1 % Baso % (Auto) 0.8 % Neut # (Auto) 3.2 (1.8-7.7) 10^3/u L Lymph # (Auto) 0.6 L (0.8-4.8) 10^3/u L Preble # (Auto) 0.9 (0.2-0.9) 10^3/u L Eos # (Auto) 0.2 (0.0-0.8) 10^3/u L Baso # (Auto) 0.0 (0.0-0.1) 10^3/u L Nucleated RBC % (a uto) 0 % Nucleated RBCs # 0.0 /100WBC Sodium 139 (136-145) mmol/L Potassium 3.1 L (3.5-5.1) mmol/L Chloride 96 L (98-107) mmol/L Carbon Dioxide 33 H (22-29) mmol/L Anion Gap 13.1 (5-19) BUN 31 H (8-23) mg/dL Creatinine 1.7 H (0.7-1.2) mg/dL Glucose 90 (65-115) mg/dL Calculated Osmolal ity 285 (285-295) mOsm/k g Calcium 8.8 (8.5-10.5) mg/dL Magnesium (1.7-2.3) mg/dL Total Bilirubin (0.15-1.2) mg/dL AST (0-40) U/L ALT (0-41) U/L Alkaline Phosphata se (40-130) IU/L Creatine Kinase (39-308) U/L Troponin T Baselin e (0-15) ng/mL Troponin T 120 Min resighini (0-15) ng/mL Delta Troponin T (0-10) ABS# NT-Pro-B Natriuret Pep (0-450) pg/mL Total Protein (6.6-8.7) g/dL Albumin (3.5-5.2) g/dL Globulin (1.3-4.6) g/dL Discharge Plan Discharge Patient Disposition: Placed in Observation Admit Provider: Tarah Alexis Clinical Impression: Acute hypotension, Ischemic cardiomyopathy, Aortic stenosis, Bradycardia Condition: Stable Interventions: ED Discharge Assessment Last Done: 07/23/19 20:02 ED Charges Last Done: 07/23/19 20:02 Discharge Date/Time: 07/23/19 20:05 Coding Level of Care Code ED Sales Account Coordinator for Jose Carlos Fwd Exam Comprehensive
[2019-07-23 17:05] VITALS: BP 97/47; PULSE 52; RESP 18; O2SAT 94
--- NOTE | 2019-07-23 17:06 | XRR_ITS ---
PROCEDURE INFORMATION: Exam: XR Chest, 1 View Exam date and time: 07/23/2019 5:43 PM Age: 83 years old Clinical indication: Cough and shortness of breath; Prior surgery; Surgery type: Pacemaker; Additional info: Dyspnea/cough TECHNIQUE: Imaging protocol: XR of the chest Views: 1 view. COMPARISON: CR XR chest 1V portable [id number] 07/22/2019 4:08 PM FINDINGS: Lungs: No radiographic evidence suggest the presence of active or acute cardiopulmonary process. Chronic discoid atelectasis in the lung bases. Antecedent granulomatous disease. Pleural space: Unremarkable. No pleural effusion. No pneumothorax. Heart/Mediastinum: Marked cardiomegaly. Arterial sclerosis. Pacemaker defibrillator. Vasculature: Tortuous thoracic aorta which can be seen in hypertensive cardiovascular disease. Bones/joints: Age related findings. XR/XR chest 1V portable [id number] IMPRESSION: Stable nonacute.
--- NOTE | 2019-07-23 17:07 | ECG_ITS ---
Measurements Intervals Rembrandt Rate: 51 P: 53 NM: 217 QRS: -22 QRSD: 134 T: 3 QT: 622 QTc: 574 SINUS BRADYCARDIA WITH FIRST DEGREE AV BLOCK INTRAVENTRICULAR CONDUCTION DELAY [130+ ms QRS DURATION] VOLTAGE CRITERIA FOR LVH [MEETS CRITERIA IN ONE OF: R(aVL), S(V1), R(V5), R(V5/ (V5/V6)+S(V1)] PROLONGED QT INTERVAL CRITICAL TEST RESULT Compared to ECG 07/22/2019 15:44:48 No significant changes Electronically Signed On 07-24-2019 17:03:[address] M.D. [email or web address]
[2019-07-23] MEDS: sodium chloride 0.9% 500 ML 999 ML IV (17:17)
[2019-07-23 17:29] LABS: Basophils # 0.1 10^3/uL (0.0-0.1); Basophils % 0.9 %; Eosinophils # 0.2 10^3/uL (0.0-0.8); Eosinophils % 2.7 %; Hematocrit 40.3 % (42.0-52.0); Lymphocytes # 0.6 10^3/uL (0.8-4.8); Mean Corpuscular HGB Conc 32.3 g/dL (30.0-36.0); Mean Corpuscular Hemoglobin 29.3 pg (28.0-34.0); Mean Corpuscular Volume 90.8 fL (80-94); Mean Platelet Volume 10.2 fL (7.4-10.4); Monocytes # 0.9 10^3/uL (0.2-0.9); Monocytes % 16.6 %; Neutrophils # 3.8 10^3/uL (1.8-7.7); Neutrophils % 69.4 %; Nucleated Red Blood Cells % 0 %; Platelet Count 218 10^3/cmm (130-400); Red Blood Count 4.44 10^6/uL (4.1-5.3); Red Cell Distribution Width 14.5 % (12.1-15.1); White Blood Count 5.5 10^3/uL (4.0-10.0)
[2019-07-23 17:42] LABS: Troponin(5th) Baseline 165 ng/mL (0-15)
[2019-07-23 17:52] LABS: Alanine Aminotransferase 27 U/L (0-41); Alkaline Phosphatase 109 IU/L (40-130); Anion Gap 20.4 (5-19); Aspartate Amino Transferase 31 U/L (0-40); Blood Urea Nitrogen 33 mg/dL (8-23); Calcium 9.6 mg/dL (8.5-10.5); Carbon Dioxide 29 mmol/L (22-29); Chloride 89 mmol/L (98-107); Creatine Phosphokinase 42 U/L (39-308); Globulin 2.9 g/dL (1.3-4.6); Glucose 111 mg/dL (65-115); Osmolality Calculated 278 mOsm/kg (285-295); Potassium 3.4 mmol/L (3.5-5.1); Sodium 135 mmol/L (136-145); Total Bilirubin 0.6 mg/dL (0.15-1.2); Total Protein 6.9 g/dL (6.6-8.7)
--- NOTE | 2019-07-23 19:07 | ECG_ITS ---
Measurements Intervals Anderson Rate: 53 P: 70 NE: 200 QRS: -27 QRSD: 140 T: 24 QT: 408 QTc: 386 SINUS BRADYCARDIA INTRAVENTRICULAR CONDUCTION DELAY [130+ ms QRS DURATION] POSSIBLE LEFT VENTRICULAR HYPERTROPHY [VOLTAGE CRITERIA PLUS LAE OR QRS WIDENING] Compared to ECG 07/22/2019 15:44:48 First degree AV block no longer present Prolonged QT interval no longer present Electronically Signed On 07-24-2019 17:06:[address] M.D. [email or web address]
[2019-07-23 19:08] VITALS: BP 109/59; PULSE 54; RESP 18; O2SAT 97
--- NOTE | 2019-07-23 19:16 | P.HP_ITS ---
Providers/Chief Complaint Primary Care Provider: Ruth LassiterNrsInst Chief Complaint: HYPOTENSION; DIZZY; WEAK History of Present Illness Roland Diaz is a 83 year old male who carries diagnosis of moderate aortic stenosis, diastolic congestive heart failure, AICD status post V. tach for secondary prevention, coming in with chief complaint of extreme lethargy. Patient is stating that he lives alone, he is active for his age, he tries to manage his daily activities on his own, he owns a big lot and able to go out and travel 60 feet without any problems until a few days ago. Lately he has been feeling lethargy, he visited ER yesterday, he was noted to have low blood pressure, he was given IV fluids which improved his blood pressure, his metoprolol dose was reduced and he was discharged. At home after dinner he had 1 syncopal event which he describes as because of extreme lethargy he had fallen on the floor without any loss of consciousness, he did not notice any chest pain, palpitations, his AICD did not fire. He checked his blood pressure systolic blood pressure was reading as 35 mmHg, he called EMS as he had no strength to drive to the hospital this time. He is also endorsing leg pain after traveling 20 to 40 feet. He has not noticed any bluishness or cyanosis of his toes. He is overwhelmed with his medical condition at this point because he has been dealing with ear infection for which she is taking antibiotics, recently he was treated for pneumonia. He is denying diarrhea, nausea, vomiting, sick contacts, fever, shortness of breath. He is compliant with his medications. This time diagnostics in the ER revealed low blood pressure which improved with fluid resuscitation, patient was awake alert oriented x3 GCS 15 when I interviewed him, able to give me all the above-mentioned details, he is not complaining of lethargy and drowsiness during my interview Investigations revealed low potassium, acute kidney injury, right bundle branch block with QTC 574 I have ordered BNP, held all of his antihypertensives Review of Systems Const: Reports: body aches, fatigue and malaise; Denies: fever, chills or change in appetite Eyes: Denies: change in vision ENMT: Reports: ear pain and tinnitus Card: Reports: lightheadedness, syncope, shortness of breath on exertion and leg pain with exertion; Denies: chest pain, palpitations, irregular heart rhythm, edema or swelling of feet/ankles Resp: Reports: shortness of breath GI: Denies: abdominal pain : Denies: flank pain Musc: Denies: neck pain Skin/Breast: Denies: rash Neuro: Reports: headache Psych: Denies: anxiety Endo: Denies: excessive urination Luis Alfredo/Lymph: Denies: easy bruising All/Imm: Denies: hives Medications/Allergies Home Medications Medication Instructions Recorded Confirmed Last Taken Type atorvastatin 10 mg tablet 10 mg PO DAILY tab 04/05/19 07/23/19 07/23/19 History clopidogrel 75 mg tablet 75 mg PO DAILY tab 04/05/19 07/23/19 07/23/19 History docusate sodium 100 mg capsule 100 mg PO DAILY cap 04/05/19 07/23/19 07/22/19 History finasteride 1 mg tablet 1 mg PO DAILY tab 04/05/19 07/23/19 07/23/19 History magnesium oxide 400 mg PO DAILY PRN tab 04/05/19 07/23/19 07/23/19 History nitroglycerin 0.4 mg sublingual 0.4 mg SUBLINGUAL Q5M PRN 04/05/19 07/23/19 Unknown History tablet potassium chloride 10 mEq 10 meq PO DAILY cap 04/05/19 07/23/19 07/23/19 History capsule,extended release tamsulosin 0.4 mg capsule 0.4 mg PO DAILY cap 04/05/19 07/23/19 07/23/19 History furosemide 40 mg tablet 40 mg PO QAM 90 Days #90 tab 04/20/19 07/23/19 07/23/19 Rx amiodarone 200 mg tablet 200 mg PO DAILY #30 tab 05/10/19 07/23/19 07/23/19 Rx acetaminophen 650 mg PO Q6H PRN #30 tab 07/04/19 07/23/19 Unknown Rx lidocaine [Lidoderm] 1 patch TOPICAL O12O12 #10 ea 07/04/19 07/23/19 07/23/19 Rx sacubitril 24 mg-valsartan 26 mg 1 tab PO BID #180 tab 07/13/19 07/23/19 07/23/19 Rx tablet metolazone 2.5 mg tablet 2.5 mg PO DAILY #7 tab 07/18/19 07/23/19 07/23/19 Rx metoprolol succinate 25 mg PO DAILY #30 each 07/22/19 07/23/19 07/22/19 Rx Allergies Allergy/AdvReac Type Severity Reaction Status Date / Time No Known Allergies Allergy Verified 07/02/19 09:10 PFSH Acute PFSH: Medical History Abdominal aortic aneurysm (AAA) 4.3?4.3 approximately 5.04?5.04 distally Aortic valve disease Mild to moderate aortic stenosis ASHD (arteriosclerotic heart disease) CHF (congestive heart failure) iscHemic cardiomyopathy with preserved ejection fraction Cognitive dysfunction Elevated PSA Essential hypertension GERD (gastroesophageal reflux disease) Hyperlipidemia Hypothyroidism Ischemic cardiomyopathy EF 58%, grade 1/4 diastolic dysfunction, moderate aortic valve calcification, LVH (left ventricular hypertrophy) Prostate cancer Prostatic hypertrophy Pulmonary HTN SOB (shortness of breath) SVT (supraventricular tachycardia) TIA (transient ischemic attack) Ventricular tachycardia Status post AICD placement Surgical History S/P angioplasty with stent Coronary disease status post 3 stents S/P implantation of automatic cardioverter/defibrillator (AICD) [employer] 08/07 Family History Father CAD (coronary artery disease) Mother CAD (coronary artery disease) CHF (congestive heart failure) Brother Parkinson disease Sister Fibromyalgia Social History Smoking and tobacco status: former smoker Alcohol intake: never Lives independently: Yes Marital status: / service: No Current occupational status: retired Current gender identity: Male Gillian/Zoroastrianism: Shinto Vitals/I&O/Wt Last Vital Signs Temp 97.9 F 07/23/19 16:59 Pulse 54 L 07/23/19 19:08 Resp 18 07/23/19 19:08 BP 109/59 07/23/19 19:08 Pulse Ox 97 07/23/19 19:08 Weight last 48 hrs Weight 102.058 kg Physical Exam Narrative: EXAM NARRATIVE: Head to toe examination Patient is awake alert oriented x3 GCS 15 EOMI, PERRLA No JVD No signs of heart failure S1, S2, loud grade 4/6 systolic murmur, right second intercostal space radiating towards his precordium Abdomen soft, nontender, nondistended bowel sound present Lungs are clear to auscultation with mild rhonchi at the bases Appropriate mood and affect Pertinent negatives No signs of heart failure No signs of altered mental status No sign of cyanosis gangrene or ulcer Data : 07/23/19 16:43 07/23/19 16:43 A&P Assessment and plan (1) Acute hypotension: Status: Acute (2) Polypharmacy: Status: Acute (3) Ischemic cardiomyopathy: Status: Acute (4) Abdominal aortic aneurysm (AAA): Status: Acute (5) Otitis externa: Status: Acute (6) Aortic valve disease: Status: Acute Additional A&P Information Syncope with underlying moderate aortic stenosis and hypertension I believe he suffered from hypotension due to polypharmacy which due to underlying aortic stenosis caused a syncopal event He is on metolazone, Lasix, metoprolol, Entresto and tamsulosin which I would hold at this point Currently his blood pressure responded very well to fluids, to support preload with underlying aortic stenosis I would use normal saline for 10 to 12 hours, currently he is not in fluid overloaded state I would not repeat echo as she recently had it done Abdominal aortic aneurysm: No active chest pain, abdominal pain Due to this hypertension and leg pain on exertion, he will need closer monitoring for abdominal aortic aneurysm Moderate aortic stenosis: He might be a good candidate for aortic valve replacement screening Currently I am holding antihypertensives and supporting preload with fluids Ventricular tachycardia status post AICD EKG showing normal rhythm however it is showing right bundle branch block, QTC prolonged 574 I would continue magnesium, check magnesium level and hold beta-leanne at this point AICD interrogation Hypokalemia: Potassium repleted Acute on chronic kidney disease due to hypertension Baseline creatinine seems to be normal Anticipating improvement with mild fluid resuscitation Monitor for development of fluid overload Currently diuretics on hold Leg pain on exertion Will get arterial Dopplers in the morning Full code Cardiac diet DVT prophylaxis Heparin Attestations Medical Necessity Statement*: Anticipating discharge less than 48 hours, needs adjustment for polypharmacy due to underlying aortic stenosis and current hyp otension Time Spent in Patient Care: 45 Coding Level of Care Code Acute Passenger Booking Clerk for g Fwd Diagnoses Acute hypotension I95.9 Polypharmacy Z79.899 Ischemic cardiomyopathy I25.5 Abdominal aortic aneurysm (AAA) I71.4 Otitis externa H60.90 Aortic valve disease I35.9
[2019-07-23 19:23] LABS: Troponin 5 2HR 137.8 ng/mL (0-15)
[2019-07-23 19:24] LABS: Troponin 5 2HR Delta -27.2 ABS# (0-10)
--- NOTE | 2019-07-23 19:24 | PC.NURSE ---
Critical 2 hour trop 137.8, notified Dr. Barkley
[2019-07-23 20:02] VITALS: BP 116/53; PULSE 52; RESP 20; O2SAT 95
[2019-07-23 20:09] VITALS: BP 103/61; PULSE 62; RESP 18; TEMP 36.8; O2SAT 90
[2019-07-23 20:38] LABS: NT Pro B Type Natriuretic Pept 580 pg/mL (0-450)
[2019-07-23] MEDS: heparin 5,000 unit/mL INJ 1 mL 5000 UNIT SUBCUT (20:43)
[2019-07-23] MEDS: sodium chloride 0.9% 1,000 ML 75 ML IV (20:43)
[2019-07-23 21:16] LABS: Magnesium 2.6 mg/dL (1.7-2.3)
[2019-07-23 23:55] VITALS: BP 99/47; PULSE 53; RESP 18; TEMP 36.9; O2SAT 90
[2019-07-24 04:00] VITALS: BP 96/59; PULSE 51; RESP 16; TEMP 36.5; O2SAT 92
[2019-07-24] MEDS: heparin 5,000 unit/mL INJ 1 mL 5000 UNIT SUBCUT ×3 (04:01→19:49)
[2019-07-24 05:07] LABS: Basophils % 0.8 %; Eosinophils # 0.2 10^3/uL (0.0-0.8); Eosinophils % 4.1 %; Hematocrit 36.8 % (42.0-52.0); Hemoglobin 11.7 g/dL (11.7-16.6); Lymphocytes # 0.6 10^3/uL (0.8-4.8); Lymphocytes % 12.1 %; Mean Corpuscular HGB Conc 31.8 g/dL (30.0-36.0); Mean Corpuscular Hemoglobin 29.1 pg (28.0-34.0); Mean Corpuscular Volume 91.5 fL (80-94); Mean Platelet Volume 9.9 fL (7.4-10.4); Monocytes # 0.9 10^3/uL (0.2-0.9); Monocytes % 17.4 %; Neutrophils # 3.2 10^3/uL (1.8-7.7); Neutrophils % 65.4 %; Nucleated Red Blood Cells % 0 %; Platelet Count 160 10^3/cmm (130-400); Red Blood Count 4.02 10^6/uL (4.1-5.3); Red Cell Distribution Width 14.6 % (12.1-15.1); White Blood Count 4.9 10^3/uL (4.0-10.0)
[2019-07-24 05:32] LABS: Anion Gap 13.1 (5-19); Blood Urea Nitrogen 31 mg/dL (8-23); Calcium 8.8 mg/dL (8.5-10.5); Carbon Dioxide 33 mmol/L (22-29); Chloride 96 mmol/L (98-107); Glucose 90 mg/dL (65-115); Osmolality Calculated 285 mOsm/kg (285-295); Potassium 3.1 mmol/L (3.5-5.1); Sodium 139 mmol/L (136-145)
[2019-07-24 07:35] VITALS: BP 112/60; PULSE 50; RESP 18; TEMP 37.1; O2SAT 91
[2019-07-24] MEDS: clopidogrel 75 mg Tablet PO (09:13)
[2019-07-24] MEDS: docusate sodium 100 mg Capsule PO (09:13)
[2019-07-24] MEDS: atorvastatin 40 mg Tablet 10 MG PO (09:13)
[2019-07-24] MEDS: sodium chloride 0.9% 1,000 ML 75 ML IV ×2 (09:14→22:43)
[2019-07-24 10:48] VITALS: PULSE 49
[2019-07-24 11:05] VITALS: BP 107/44; PULSE 49; RESP 18; TEMP 36.8; O2SAT 95
--- NOTE | 2019-07-24 11:45 | PM.PN ---
Subjective Subjective: Interval history: Admitted overnight. H&P and labs noted. On examination patient lying comfortably in bed. Denies of having any current dizziness, nausea, vomiting, headache. Patient states he has been having recurrent dizziness and 2 episodes of syncope for last 2 days with lethargy which has been getting worse for last 3 to 4 days. He denies of having any diarrhea, dysuria, flulike symptoms. Vitals/I&O/Wt Last Vital Signs Temp 98.3 F 07/24/19 11:05 Pulse 49 L 07/24/19 11:05 Resp 18 07/24/19 11:05 BP 107/44 07/24/19 11:05 Pulse Ox 95 07/24/19 11:05 07/23/19 07/24/19 07/24/19 22:59 06:59 14:59 Intake Total 740 / 740 640 / 1380 1298.75 / 1298.75 Output Total 450 / 450 400 / 400 Balance 740 / 740 190 / 930 898.75 / 898.75 Weight last 48 hrs Weight 102.058 kg Physical Exam Narrative: EXAM NARRATIVE: General: No acute distress, AO x3, dehydrated HEENT: PERRLA, pupils bilaterally equal and reactive Chest: Normal vesicular breath sounds, no added sounds, equal good air entry bilaterally CVS: S1-S2 regular, bradycardia, ejection systolic murmur present in the aortic area 2/6, no gallops, no rubs Abdomen: Soft, nontender, no organomegaly, bowel sounds present Neuro: No focal deficits, no facial deformity, AO x3, power 5/5 in all limbs Data : 07/24/19 04:48 07/24/19 04:48 A&P Assessment and plan (1) Syncope: Status: Acute Qualifiers: Syncope type: unspecified Qualified Code(s): R55 - Syncope and collapse (2) Heart block atrioventricular: Status: Acute (3) Aortic stenosis: Status: Acute (4) S/P implantation of automatic cardioverter/defibrillator (AICD): Status: Acute (5) Ventricular tachycardia: Status: Acute (6) Acute hypotension: Status: Acute (7) Polypharmacy: Status: Acute (8) Ischemic cardiomyopathy: Status: Acute (9) CHF (congestive heart failure): Status: Acute Qualifiers: Heart failure chronicity: chronic Heart failure type: systolic Qualified Code(s): I50.22 - Chronic systolic (congestive) heart failure (10) Essential hypertension: Status: Acute (11) Otitis externa: Status: Acute (12) Acute kidney injury: Status: Acute Additional A&P Information Syncope: Most likely multifactorial from 2: 1 heart block, moderate to severe aortic stenosis in setting of ischemic cardiomyopathy, CAD, overdiuresis and hypotension because of polypharmacy. At home patient is on Entresto, metolazone, Lasix, amiodarone, metoprolol, Flomax. Blood pressure stable while being off all the above said medications. Heart rate running in high 40s to low 50s. Continue holding amiodarone and metoprolol for now. For now we will hold off on Entresto as well. Patient looks mildly dehydrated as evidenced by elevated BUN and creatinine so we will hold off on Lasix and metolazone as well. We will consult cardiology for further recommendations in case patient requires aortic valve replacement/TAVR. Patient's troponins trending down. Patient is chest pain-free for now. Continue with home dose of Plavix, statins. Lipid panel recently checked and stable. We will ask for AICD interrogation. EKG reviewed by me consistent with 2: 1 heart block, regular rhythm and rate of 53 bpm, IVCD of LBBB morphology, QTC 386 Congestive heart failure: Diastolic type. Last echo done in April suggestive of EF of 58% with grade 1 diastolic dysfunction with moderate aortic valve calcification with low gradient severe aortic valve stenosis with peak velocity across the valve of 3.3 mm/s and peak gradient of 43 mmHg. Patient euvolemic for now. Continue with gentle IV hydration with normal saline 50 cc/h. JOSAFAT: Baseline creatinine 1.1. 1.7 today. Most likely because of overdiuresis while being on Entresto. Medical reconciliation done for nephrotoxic drugs. Patient hypokalemic. Will replete with oral potassium. Check BMP daily. Abdominal aortic aneurysm: No active chest pain, abdominal pain Due to this hypertension and leg pain on exertion, he will need closer monitoring for abdominal aortic aneurysm Leg pain on exertion: Given history of CAD cannot rule out peripheral vascular disease versus decreased perfusion from moderate to severe aortic stenosis. Arterial duplex already ordered. Results awaited. Full code Cardiac diet DVT prophylaxis Heparin Attestations Medical Necessity Statement*: Syncope, severe aortic stenosis, 2-1 heart block Time Spent in Patient Care: Greater than 35 minutes (>than 50% of time spent in counselling and/or direct pt care on unit). Coding Level of Care Code Acute Records Analysis Manager for g Fwd Diagnoses Syncope R55 Syncope type: unspecified Heart block atrioventricular I44.30 Aortic stenosis I35.0 S/P implantation of automatic cardioverter/defibrillator (AICD) Z95.810 Ventricular tachycardia I47.2 Acute hypotension I95.9 Polypharmacy Z79.899 Ischemic cardiomyopathy I25.5 CHF (congestive heart failure) I50.22 Heart failure chronicity: chronic Heart failure type: systolic Essential hypertension I10 Otitis externa H60.90 Acute kidney injury N17.9
--- NOTE | 2019-07-24 12:14 | PM.CONSULT ---
Providers/Reason For Consult Consulting Physican/Specialty*: Cardiology Reason for Consult*: Syncope Attending Physician: Ifeanyi Yoo MD Primary Care Provider: Ruth Chavez-NrsInst History of Present Illness History of Present Illness Roland Diaz is a 83 year old male past medical history significant for coronary artery disease status post LAD and ramus intermedius stent performed in [place] at the same time it was learned that patient has chronically occluded circumflex and RCA, history of severely depressed LV function 35% status post AICD later improved to normal 50 to 60%, history of SVT and ventricular tachycardia, history of moderate to severe aortic stenosis and history of combined systolic and diastolic heart failure. Patient was admitted with syncope last night at the same time he was found to be dehydrated and hypotensive. Couple of days ago patient came to ER with hypotension and bradycardia heart rate was into 50s. Metoprolol was reduced but patient continues to take 37.5 mg of metoprolol at home along with 200 mg of amiodarone. He is on Lasix and metolazone. Yesterday after dinner patient passed out, he checked his blood pressure which was very low therefore called EMS. He was admitted after giving IV fluid due to bradycardia and prolonged QT. Amiodarone and beta-leanne were held. Today he has stabilized but continues to run into low 50s on telemetry. QT is/QTc is also prolonged partly due to bradycardia and on anti-rhythmic he denies chest pain PND orthopnea. He himself think that he is dry. He denies fever chills nausea vomiting diarrhea or anybody around sick Review of Systems Const: Reports: body aches, fatigue and malaise; Denies: fever, chills, change in appetite or diaphoresis Eyes: Denies: change in vision ENMT: Reports: ear pain and tinnitus; Denies: throat pain, nasal discharge or nasal congestion Card: Reports: lightheadedness, syncope, shortness of breath on exertion and leg pain with exertion; Denies: chest pain, palpitations, irregular heart rhythm, edema or swelling of feet/ankles Resp: Reports: shortness of breath GI: Denies: abdominal pain or nausea : Denies: flank pain, painful urination, urinary frequency or urinary urgency Musc: Denies: neck pain Skin/Breast: Denies: rash or itching Neuro: Reports: headache; Denies: confusion Psych: Denies: anxiety Endo: Denies: excessive urination Luis Alfredo/Lymph: Denies: easy bruising All/Imm: Denies: hives Meds/Allergies Home Medications and Allergies Home Medications Medication Instructions Recorded Confirmed Last Taken Type atorvastatin 10 mg tablet 10 mg PO DAILY tab 04/05/19 07/23/19 07/23/19 History clopidogrel 75 mg tablet 75 mg PO DAILY tab 04/05/19 07/23/19 07/23/19 History docusate sodium 100 mg capsule 100 mg PO DAILY cap 04/05/19 07/23/19 07/22/19 History finasteride 1 mg tablet 1 mg PO DAILY tab 04/05/19 07/23/19 07/23/19 History magnesium oxide 400 mg PO DAILY PRN tab 04/05/19 07/23/19 07/23/19 History nitroglycerin 0.4 mg sublingual 0.4 mg SUBLINGUAL Q5M PRN 04/05/19 07/23/19 Unknown History tablet potassium chloride 10 mEq 10 meq PO DAILY cap 04/05/19 07/23/19 07/23/19 History capsule,extended release tamsulosin 0.4 mg capsule 0.4 mg PO DAILY cap 04/05/19 07/23/19 07/23/19 History furosemide 40 mg tablet 40 mg PO QAM 90 Days #90 tab 04/20/19 07/23/19 07/23/19 Rx amiodarone 200 mg tablet 200 mg PO DAILY #30 tab 05/10/19 07/23/19 07/23/19 Rx acetaminophen 650 mg PO Q6H PRN #30 tab 07/04/19 07/23/19 Unknown Rx lidocaine [Lidoderm] 1 patch TOPICAL O12O12 #10 ea 07/04/19 07/23/19 07/23/19 Rx sacubitril 24 mg-valsartan 26 mg 1 tab PO BID #180 tab 07/13/19 07/23/19 07/23/19 Rx tablet metolazone 2.5 mg tablet 2.5 mg PO DAILY #7 tab 07/18/19 07/23/19 07/23/19 Rx metoprolol succinate 25 mg PO DAILY #30 each 07/22/19 07/23/19 07/22/19 Rx Allergies Allergy/AdvReac Type Severity Reaction Status Date / Time No Known Allergies Allergy Verified 07/02/19 09:10 Current Medications Current Medications Generic Name Dose Route Start Last Admin Trade Name Rovertoq PRN Reason Stop Dose Admin Atorvastatin Calcium 10 mg 07/24/19 09:00 07/24/19 09:13 Lipitor PO 10 mg DAILY COLLEEN Administration Clopidogrel Bisulfate 75 mg 07/24/19 09:00 07/24/19 09:13 Plavix PO 75 mg DAILY COLLEEN Administration Docusate Sodium 100 mg 07/24/19 09:00 07/24/19 09:13 Colace PO 100 mg DAILY COLLEEN Administration Heparin Sodium (Beef Lung) 5,000 unit 07/23/19 20:09 07/24/19 04:01 Heparin SUBCUT 5,000 unit Q8H COLLEEN Administration Sodium Chloride 1,000 mls @ 75 mls/hr 07/23/19 20:09 07/24/19 09:14 Sodium Chloride 0.9% IV 75 mls/hr .[id number] COLLEEN Administration Potassium Chloride 10 meq 07/24/19 09:00 07/24/19 09:13 Klor-Con 10 PO 10 meq DAILY COLLEEN Administration PFSH Acute PFSH: Medical History (Updated 07/25/19 @ 12:28 by Ifeanyi Yoo MD) Abdominal aortic aneurysm (AAA) 4.3?4.3 approximately 5.04?5.04 distally Aortic stenosis ASHD (arteriosclerotic heart disease) CHF (congestive heart failure) iscHemic cardiomyopathy with preserved ejection fraction Cognitive dysfunction Elevated PSA Essential hypertension GERD (gastroesophageal reflux disease) Hyperlipidemia Hypothyroidism Ischemic cardiomyopathy EF 58%, grade 1/4 diastolic dysfunction, moderate aortic valve calcification, LVH (left ventricular hypertrophy) Prostate cancer Prostatic hypertrophy Pulmonary HTN SOB (shortness of breath) SVT (supraventricular tachycardia) TIA (transient ischemic attack) Ventricular tachycardia Status post AICD placement Surgical History S/P angioplasty with stent Coronary disease status post 3 stents S/P implantation of automatic cardioverter/defibrillator (AICD) [employer] 08/07 Family History Father CAD (coronary artery disease) Mother CAD (coronary artery disease) CHF (congestive heart failure) Brother Parkinson disease Sister Fibromyalgia Social History Smoking and tobacco status: former smoker Alcohol intake: never Lives independently: Yes Marital status: / service: No Current occupational status: retired Current gender identity: Male Gillian/Gnosticist: Gnosticist Dietary Habits: Current diet type/program: regular Caffeine: Yes Vitals/I&O/Wt Last Vital Signs Temp 98.3 F 07/24/19 11:05 Pulse 49 L 07/24/19 11:05 Resp 18 07/24/19 11:05 BP 107/44 07/24/19 11:05 Pulse Ox 95 07/24/19 11:05 07/23/19 07/24/19 07/24/19 22:59 06:59 14:59 Intake Total 740 / 740 640 / 1380 1298.75 / 1298.75 Output Total 450 / 450 400 / 400 Balance 740 / 740 190 / 930 898.75 / 898.75 Weight last 48 hrs Weight 225 lb Physical Exam Narrative: EXAM NARRATIVE: GENERAL: Patient is alert, awake and oriented x3. NECK: No jugular vein distension. HEENT: No cyanosis. No icterus. No pallor. HEART: Regular S1 and S2. 2/6 systolic murmur, rub or gallop. LUNGS: Clear to auscultate bilaterally. ABDOMEN: Soft, nontender and nondistended. Positive bowel sounds. No guarding, rebound or tenderness. CENTRAL NERVOUS SYSTEM: Grossly nonfocal. EXTREMITIES: Lower extremities with trace edema bilaterally. A&P Assessment and plan (1) Syncope: Combination of over diureses and bradycardia along with moderate to severe aortic stenosis as a contributing factor for the syncope. Medicine already stopped beta-leanne and antiarrhythmic. His heart rate still is in 50s we will continue to monitor him on telemetry. QT/QTc is prolonged most likely secondary to bradycardia and antiarrhythmic will keep magnesium in the normal range Status: Acute Qualifiers: Syncope type: unspecified Qualified Code(s): R55 - Syncope and collapse (2) Ischemic cardiomyopathy: Stable from ischemic heart disease perspective. Continue Plavix continue holding beta-leanne Status: Acute (3) Aortic valve disease: Patient has moderate to severe aortic stenosis aortic valve area is below 1 cm? while mean gradient across aortic valve is 23 mmHg with velocity across the valve is 3.3 m/s. Dehydration and bradycardia further can lower cardiac output therefore contributing to syncope. Once heart rate improved and dehydration resolved as an outpatient he can follow-up with Dr. Ryan Houser who is his primary regional company truck driver for possible aortic valve replacement consideration. Status: Deleted (4) Ventricular tachycardia: Stable no ventricular tachycardia noted. He is status post AICD. Status: Acute (5) Pulmonary HTN: Stable. Status: Acute (6) S/P implantation of automatic cardioverter/defibrillator (AICD): Status: Acute (7) CHF (congestive heart failure): Patient is on dry side. Continue holding diuretics Status: Acute Qualifiers: Heart failure chronicity: chronic Heart failure type: systolic Qualified Code(s): I50.22 - Chronic systolic (congestive) heart failure (8) Abdominal aortic aneurysm (AAA): Follow-up with cardiology continue to monitor. Status: Acute Qualifiers: Presence of rupture: without rupture Qualified Code(s): I71.4 - Abdominal aortic aneurysm, without rupture Consult Attestations Medical Necessity Statement: Patient require continuation hospitalization. I am expecting stay to cross more than 2 midnights. Coding Level of Care Code New Pt Acute Cad Designer Drafter for Chg Fwd Patient Type New History Detailed Exam Detailed Medical Decision Making Moderate Complexity 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
--- NOTE | 2019-07-24 13:47 | PC.NURSE ---
Home med Pt use eardrops. said its okay for him to use his own med. awaiting for family to bring it.
--- NOTE | 2019-07-24 14:51 | PC.NURSE ---
AICD/Pacemaker [facility] interrogated Per [employer] Factory Worker Mak Pardo set low ventricular rate is 40. Pt has a single lead ventricular pacemaker. Defibrillator intact.
[2019-07-24 15:24] VITALS: BP 127/73; PULSE 54; RESP 20; TEMP 36.6; O2SAT 90
--- NOTE | 2019-07-24 17:00 | PC.NURSE ---
Ear drops pt stated he was prescribed with 2 eardops BID for 14 days. His sister brought 2 bottles of cotrimazole 1%. the other eardrop does not have a label on. I told pt we need a prescription label to bring it to our pharmacy to put a barcode as a non-formulary med. Pt stated, I will be responsible for this. I have already missed today's dose. notified.
--- NOTE | 2019-07-24 19:56 | PC.NURSE ---
Pt stated he is not taking Entresto anymore bcoz it was expensive. Dr Houser started him on Valsartan. Pt home med rec needs to be updated. Discuss with night nurse to communicate with the day nurse and call his pharmacy in the morning.
[2019-07-24 20:00] VITALS: BP 111/50; PULSE 54; RESP 16; TEMP 36.7; O2SAT 94
--- NOTE | 2019-07-24 21:00 | USR_ITS ---
PROCEDURE INFORMATION: Exam: US Duplex Lower Extremity Arteries Or Arterial Bypass Grafts Exam date and time: 07/24/2019 6:19 AM Age: 83 years old Clinical indication: Pain; Leg, lower; Bilateral; Additional info: Leg pain on exertion TECHNIQUE: Imaging protocol: Real-time ultrasound scan of the arteries of the bilateral lower extremities with 2-D pina scale, color Doppler flow and spectral waveform analysis. Images documented and saved. COMPARISON: No relevant prior studies available. FINDINGS: Right external iliac artery: Flow is demonstrated within the right iliac artery as well as the common femoral artery with triphasic waveform pattern. Right common femoral artery: No occlusion. Right superficial femoral artery: No occlusion or significant stenosis. Normal waveform. Right popliteal artery: Significantly dampened flow within the right popliteal artery with underlying irregular atherosclerotic plaque. Abnormal monophasic waveform pattern in the posterior tibial with severely dampened flow dorsalis pedis artery distribution with underlying atherosclerotic plaque. Right calf/foot arteries: Right: Right ankle brachial index 1.16. Left external iliac artery: Triphasic vascular waveform pattern within left iliac artery. Left common femoral artery: Biphasic waveform pattern within the left common femoral artery with biphasic or triphasic waveforms throughout the left femoral artery. There is dampened biphasic waveform pattern in the popliteal artery. Atherosclerotic plaque with significantly dampened flow and monophasic pattern in the dorsalis pedis and anterior tibial distribution. Left posterior tibial is not identified. Left superficial femoral artery: See discussion above. Left popliteal artery: See discussion above it is. Left calf/foot arteries: Left: Left ankle brachial index 1.18. Other findings: Flow throughout the femoral artery with a biphasic or triphasic pattern. US/CV arterial duplex [facility] [id number] IMPRESSION: 1. Lower extremity atherosclerotic plaque with dampened abnormal predominantly monophasic waveform patterns distally which may suggest significant small-vessel atherosclerotic occlusive changes distally. Abnormal dampened flow right lower extremity most prominently originating at the level of popliteal artery. Consideration of CTA of the aorta and lower extremities may all a higher degree of sensitivity for detection of proximal areas of rate limiting stenosis. 2. Normal ankle brachial indices which can be falsely normal in the setting of significant vascular calcification.
[2019-07-25] VITALS: BP 111/62; PULSE 54; RESP 18; TEMP 36.4; O2SAT 92
[2019-07-25] MEDS: lidocaine 2% viscous 15 ML, aluminum-mag hydrox-simethicon 30 ML, sucralfate oral liq 1 GM PO (02:57)
[2019-07-25] MEDS: heparin 5,000 unit/mL INJ 1 mL 5000 UNIT SUBCUT ×3 (02:57→21:03)
[2019-07-25 04:00] VITALS: BP 146/67; PULSE 55; RESP 20; TEMP 36.4; O2SAT 95
[2019-07-25 06:40] LABS: Alanine Aminotransferase 25 U/L (0-41); Albumin Level 3.5 g/dL (3.5-5.2); Alkaline Phosphatase 95 IU/L (40-130); Anion Gap 14.3 (5-19); Aspartate Amino Transferase 31 U/L (0-40); Blood Urea Nitrogen 23 mg/dL (8-23); Calcium 8.8 mg/dL (8.5-10.5); Carbon Dioxide 28 mmol/L (22-29); Chloride 98 mmol/L (98-107); Globulin 2.7 g/dL (1.3-4.6); Glucose 86 mg/dL (65-115); Osmolality Calculated 280 mOsm/kg (285-295); Potassium 3.3 mmol/L (3.5-5.1); Sodium 137 mmol/L (136-145); Total Bilirubin 0.6 mg/dL (0.15-1.2); Total Protein 6.2 g/dL (6.6-8.7)
[2019-07-25 07:33] VITALS: BP 118/64; PULSE 56; RESP 18; TEMP 36.6; O2SAT 91
[2019-07-25] MEDS: clopidogrel 75 mg Tablet PO (08:31)
[2019-07-25] MEDS: atorvastatin 40 mg Tablet 10 MG PO (08:31)
[2019-07-25] MEDS: docusate sodium 100 mg Capsule PO (08:31)
--- NOTE | 2019-07-25 09:39 | PC.CHAP ---
Pastoral Care Encounter/Spiritual Assessment Type of Contact [] Declined assistant store director visit [] Patient/Family/Request visit [] Outpatient visit [] Follow-up visit [] Physician referral [] Code/Alert [x] Routine visit [] Staff referral [] Actively dying [x] Patient sleeping [] Family support [] [] Out of room [] Palliative care [] [] Receiving care in room [] Pre-surgical visit [] Trauma [] Long length of stay [] ICU visit [] Other: Relational/Emotional Strength [] Patient feels connected with others/family/visitors/staff [] Distress [] Loneliness/isolation [] Abandonment Spirituality of Patient [] Person of Gillian [] Attends Mormonism of their Gillian [] Believes in Prayer [] Reads Bible or Mosque materials [] There are Spiritual issues to be addressed Extruder Operator Horizontal Interventions [] Prayer [] Active listening [] Non-anxious presence [] Spiritual/emotional support [] Crisis/trauma care [] Spiritual counseling [] Bereavement support [] Provided bereavement packet [] Provided Bible/devotional materials [] Provided toy/stuffed animal, coloring book to patient or family member [] Provided Communion [] Anointing/[place] [] Salvation [x] Completed spiritual assessment [] Other: Impact on Illness or Injury [] Angry [] Fearful [] Anxious [] Often cries [] Exhaustion [] Unable to work [] Unable to attend nondenominational [] Unable to walk/stand [] Unable to read [] Unable to drive [] Unable to eat/drink [] Unable to sleep [] Unable to be with family [] Patient intubated [] Other: Summary Time spent with patient
[2019-07-25 11:08] VITALS: BP 94/46; PULSE 53; RESP 18; TEMP 36.9; O2SAT 93
--- NOTE | 2019-07-25 12:19 | P.PN_ITS ---
Subjective Subjective: Interval history: No acute events overnight. Today morning on examination patient is lying comfortably in bed. States he is feeling little short of breath than his usual. He is not on supplemental oxygen and is saturating more than 92%. He complains of dizziness on moving his head from one side to another but states it is different than the kind of dizziness he was having at home when he had falls. Denies having any nausea, vomiting, headache, chest pain, weakness in any of his arms. Labs and vitals noted. Telemetry needs noted. Heart rate has remained in high 50s in last 24 hours, 2- 1 heart block persistent. Vitals/I&O/Wt Last Vital Signs Temp 98.4 F 07/25/19 11:08 Pulse 53 L 07/25/19 11:08 Resp 18 07/25/19 11:08 BP 94/46 07/25/19 11:08 Pulse Ox 93 07/25/19 11:08 07/24/19 07/25/19 07/25/19 22:59 06:59 14:59 Intake Total 1050 / 2708.75 580 / 580 Output Total 400 / 800 700 / 1500 650 / 650 Balance 650 / 1908.75 -700 / 1208.75 -70 / -70 Weight last 48 hrs Weight 102.058 kg Physical Exam Narrative: EXAM NARRATIVE: General: No acute distress, AO x3, euvolemic. HEENT: PERRLA, pupils bilaterally equal and reactive Chest: Normal vesicular breath sounds, no added sounds, equal good air entry bilaterally CVS: S1-S2 regular, bradycardia, ejection systolic murmur present in the aortic area 2/6, no gallops, no rubs Abdomen: Soft, nontender, no organomegaly, bowel sounds present Neuro: No focal deficits, no facial deformity, AO x3, power 5/5 in all limbs Data : 07/24/19 04:48 07/25/19 05:27 A&P Assessment and plan (1) Syncope: Status: Acute Qualifiers: Syncope type: unspecified Qualified Code(s): R55 - Syncope and collapse (2) Heart block atrioventricular: Status: Acute (3) Aortic stenosis: Status: Acute (4) S/P implantation of automatic cardioverter/defibrillator (AICD): Status: Acute (5) Ventricular tachycardia: Status: Acute (6) Acute hypotension: Status: Acute (7) Polypharmacy: Status: Acute (8) Ischemic cardiomyopathy: Status: Acute (9) CHF (congestive heart failure): Status: Acute Qualifiers: Heart failure chronicity: chronic Heart failure type: systolic Qualified Code(s): I50.22 - Chronic systolic (congestive) heart failure (10) Acute kidney injury: Status: Acute (11) Claudication of both lower extremities: Status: Acute (12) Essential hypertension: Status: Acute (13) Otitis externa: Status: Acute Additional A&P Information Syncope: Most likely multifactorial from 2: 1 heart block, moderate to severe aortic stenosis in setting of ischemic cardiomyopathy, CAD, overdiuresis and hypotension because of polypharmacy. At home patient is on Entresto, metolazone, Lasix, amiodarone, metoprolol, Flomax. Blood pressure stable while being off all the above said medications. Heart rate running in high 40s to low 50s. Continue holding amiodarone and metoprolol for now. For now we will hold off on Entresto as well. Stop IV fluids. Patient euvolemic. Complaining of mild shortness of breath. Saturating well on room air. We will hold off on Lasix as well for now. Patient's troponins trending down. Patient is chest pain-free for now. Continue with home dose of Plavix, statins. Lipid panel recently checked and stable. AICD interrogation unremarkable. Greatly appreciate Dr. Lane's recommendations. Congestive heart failure: Diastolic type. Last echo done in April suggestive of EF of 58% with grade 1 diastolic dysfunction with moderate aortic valve calcification with low gradient severe aortic valve stenosis with peak velocity across the valve of 3.3 mm/s and peak gradient of 43 mmHg. Patient euvolemic for now. JOSAFAT: Baseline creatinine 1.1. Resolved. Creatinine back to baseline. Most likely because of overdiuresis while being on Entresto. Medical reconciliation done for nephrotoxic drugs. Patient hypokalemic. Will replete with oral potassium. Check BMP daily. Abdominal aortic aneurysm: No active chest pain, abdominal pain Due to this hypertension and leg pain on exertion, he will need closer monitoring for abdominal aortic aneurysm Lower limb claudication: Given history of CAD cannot rule out peripheral vascular disease versus decreased perfusion from moderate to severe aortic stenosis. Arterial duplex results appreciated. Will discuss with Dr. Lane. 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
[2019-07-25] MEDS: FUROsemide 40 mg Tablet PO (12:25)
[2019-07-25 16:00] VITALS: BP 123/61; PULSE 57; RESP 18; TEMP 36.8; O2SAT 95
--- NOTE | 2019-07-25 17:36 | P.PN_ITS ---
Subjective Subjective: Interval history: Overall feeling better but appears to be a little bit better as patient has cough while laying flat Vitals/I&O/Wt Last Vital Signs Temp 98.2 F 07/25/19 16:00 Pulse 57 L 07/25/19 16:00 Resp 18 07/25/19 16:00 BP 123/61 07/25/19 16:00 Pulse Ox 95 07/25/19 16:00 07/25/19 07/25/19 07/25/19 06:59 14:59 22:59 Intake Total 820 / 820 240 / 1060 Output Total 700 / 1500 650 / 650 Balance -700 / 1208.75 170 / 170 240 / 410 Physical Exam Narrative: EXAM NARRATIVE: GENERAL: Patient is alert, awake and oriented x3. NECK: No jugular vein distension. HEENT: No cyanosis. No icterus. No pallor. HEART: Regular S1 and S2. 2/6 systolic murmur, rub or gallop. LUNGS: Decreased breath sound bilaterally. ABDOMEN: Soft, nontender and nondistended. Positive bowel sounds. No guarding, rebound or tenderness. CENTRAL NERVOUS SYSTEM: Grossly nonfocal. EXTREMITIES: Lower extremities with trace edema bilaterally. Data : 07/24/19 04:48 07/25/19 05:27 A&P Assessment and plan (1) Syncope: Combination of over diureses and bradycardia along with moderate to severe aortic stenosis as a contributing factor for the syncope. Medicine already stopped beta-leanne and antiarrhythmic. His heart rate still is in 50s we will continue to monitor him on telemetry. QT/QTc is prolonged most likely secondary to bradycardia and antiarrhythmic will keep magnesium in the normal range On today's visit heart rate has improved. Overall he is feeling fine continue holding beta-leanne and amiodarone Status: Acute Qualifiers: Syncope type: unspecified Qualified Code(s): R55 - Syncope and collapse (2) Ischemic cardiomyopathy: Stable continue current Status: Acute (3) Aortic valve disease: Patient has moderate to severe aortic stenosis aortic valve area is below 1 cm? while mean gradient across aortic valve is 23 mmHg with velocity across the valve is 3.3 m/s. Dehydration and bradycardia further can lower cardiac output therefore contributing to syncope. Once heart rate improved and dehydration resolved as an outpatient he can follow-up with Dr. Ryan Houser who is his primary certified financial planner for possible aortic valve replacement consideration. Status: Deleted (4) Ventricular tachycardia: Stable no ventricular tachycardia noted. He is status post AICD. Status: Acute (5) Pulmonary HTN: Stable. Status: Acute (6) S/P implantation of automatic cardioverter/defibrillator (AICD): No recording of arrhythmia on device interrogation Status: Acute (7) CHF (congestive heart failure): Appears to be slightly decompensated state of heart failure. We will stop IV fluid I will give him 40 mg of IV Lasix. Status: Acute Qualifiers: Heart failure chronicity: chronic Heart failure type: systolic Qualified Code(s): I50.22 - Chronic systolic (congestive) heart failure (8) Abdominal aortic aneurysm (AAA): Follow-up with cardiology continue to monitor. 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
[2019-07-25] MEDS: FUROsemide 10 mg/mL SDV 2mL 20 MG IVP (18:26)
[2019-07-25 19:40] VITALS: BP 131/65; PULSE 56; RESP 17; TEMP 36.7; O2SAT 93
[2019-07-26] VITALS: BP 169/76; PULSE 65; RESP 19; TEMP 36.6; O2SAT 94
[2019-07-26 04:00] VITALS: BP 131/75; PULSE 53; RESP 18; TEMP 36.8; O2SAT 92
[2019-07-26 05:49] LABS: Alanine Aminotransferase 24 U/L (0-41); Albumin Level 3.5 g/dL (3.5-5.2); Alkaline Phosphatase 95 IU/L (40-130); Anion Gap 13.8 (5-19); Aspartate Amino Transferase 28 U/L (0-40); Blood Urea Nitrogen 20 mg/dL (8-23); Calcium 8.9 mg/dL (8.5-10.5); Carbon Dioxide 31 mmol/L (22-29); Chloride 98 mmol/L (98-107); Creatinine Clr Calc Pharmacy 61.8962; Globulin 2.8 g/dL (1.3-4.6); Glucose 86 mg/dL (65-115); Osmolality Calculated 284 mOsm/kg (285-295); Potassium 3.8 mmol/L (3.5-5.1); Sodium 139 mmol/L (136-145); Total Bilirubin 0.6 mg/dL (0.15-1.2); Total Protein 6.3 g/dL (6.6-8.7)
[2019-07-26] MEDS: heparin 5,000 unit/mL INJ 1 mL 5000 UNIT SUBCUT (06:22)
[2019-07-26 07:33] VITALS: BP 149/78; PULSE 58; RESP 18; TEMP 36.7; O2SAT 96
[2019-07-26] MEDS: docusate sodium 100 mg Capsule PO (08:44)
[2019-07-26] MEDS: atorvastatin 40 mg Tablet 10 MG PO (08:44)
[2019-07-26] MEDS: clopidogrel 75 mg Tablet PO (08:44)
[2019-07-26 10:54] VITALS: BP 91/42; PULSE 58; RESP 18; TEMP 36.4; O2SAT 92
--- NOTE | 2019-07-26 11:12 | P.PN_ITS ---
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
--- NOTE | 2019-07-26 11:14 | PM.PN ---
Subjective Subjective: Interval history: Patient is feeling much better. Heart rate is in high 50s to 60s. Blood pressure is into 90s systolic this morning otherwise most of the time it is on the higher side. Vitals/I&O/Wt Last Vital Signs Temp 97.5 F L 07/26/19 10:54 Pulse 58 L 07/26/19 10:54 Resp 18 07/26/19 10:54 BP 91/42 07/26/19 10:54 Pulse Ox 92 07/26/19 10:54 07/25/19 07/26/19 07/26/19 22:59 06:59 14:59 Intake Total 240 / 1060 240 / 240 Output Total 200 / 850 900 / 1750 Balance 40 / 210 -900 / -690 240 / 240 Physical Exam Narrative: EXAM NARRATIVE: GENERAL: Patient is alert, awake and oriented x3. NECK: No jugular vein distension. HEENT: No cyanosis. No icterus. No pallor. HEART: Regular S1 and S2. 2/6 systolic murmur, rub or gallop. LUNGS: Decreased breath sound bilaterally. ABDOMEN: Soft, nontender and nondistended. Positive bowel sounds. No guarding, rebound or tenderness. CENTRAL NERVOUS SYSTEM: Grossly nonfocal. EXTREMITIES: Lower extremities with trace edema bilaterally. Data : 07/24/19 04:48 07/26/19 04:42 A&P Assessment and plan (1) Syncope: Combination of over diureses and bradycardia along with moderate to severe aortic stenosis as a contributing factor for the syncope. Medicine already stopped beta-leanne and antiarrhythmic. His heart rate still is in 50s we will continue to monitor him on telemetry. QT/QTc is prolonged most likely secondary to bradycardia and antiarrhythmic will keep magnesium in the normal range On today's visit heart rate has improved. Overall he is feeling fine continue holding beta-leanne and amiodarone I think patient is stable from a cardiovascular perspective. We will make him walk around if he do fine I may will discharge him home. We will hold amiodarone and beta-leanne for now, it will be started at desired dose as an outpatient. Patient is going to follow-up with Dr. Sims in 1 week or cardiology nurse practitioner Status: Acute Qualifiers: Syncope type: unspecified Qualified Code(s): R55 - Syncope and collapse (2) Ischemic cardiomyopathy: Stable continue current Status: Acute (3) Aortic valve disease: Patient has moderate to severe aortic stenosis aortic valve area is below 1 cm? while mean gradient across aortic valve is 23 mmHg with velocity across the valve is 3.3 m/s. Dehydration and bradycardia further can lower cardiac output therefore contributing to syncope. Once heart rate improved and dehydration resolved as an outpatient he can follow-up with Dr. Ryan Houser who is his primary material hauler for possible aortic valve replacement consideration. Status: Deleted (4) Ventricular tachycardia: Stable no ventricular tachycardia noted. He is status post AICD. AICD device was checked which did not show ventricular arrhythmia Status: Acute (5) Pulmonary HTN: Stable. Status: Acute (6) S/P implantation of automatic cardioverter/defibrillator (AICD): No recording of arrhythmia on device interrogation Status: Acute (7) CHF (congestive heart failure): Appears to be well compensated. We will switch him to p.o. Lasix Status: Acute Qualifiers: Heart failure chronicity: chronic Heart failure type: systolic Qualified Code(s): I50.22 - Chronic systolic (congestive) heart failure (8) Abdominal aortic aneurysm (AAA): Follow-up with cardiology continue to monitor. Status: Acute Qualifiers: Presence of rupture: without rupture Qualified Code(s): I71.4 - Abdominal aortic aneurysm, without rupture Attestations Medical Necessity Statement*: From a cardiac perspective, if patient okay by nursing staff for physical therapy he may can be discharged home. Follow-up with cardiology in 1 week. 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
--- NOTE | 2019-07-26 13:01 | P.DS_ITS ---
Discharge Providers Date of Admission: 07/24/19 13:45 Date of Discharge: July 26, 2019 Attending Provider at Admission: Tarah Alexis MD Attending Provider at Discharge: Mishel Springer MD Consults: Cardiology: Dr. Lane Primary Care Provider: Ruth Chavez-NrsInst Diagnoses at Discharge Discharge Diagnosis (1) Syncope: Status: Acute Qualifiers: Syncope type: unspecified Qualified Code(s): R55 - Syncope and collapse (2) Ischemic cardiomyopathy: Status: Acute Problem details: EF 58%, grade 1/4 diastolic dysfunction, moderate aortic valve calcification, (3) Aortic valve disease: Status: Deleted Problem details: Moderate to severe aortic stenosis (4) Ventricular tachycardia: Status: Acute Problem details: Status post AICD placement (5) Pulmonary HTN: Status: Acute (6) S/P implantation of automatic cardioverter/defibrillator (AICD): Status: Acute Problem details: [facility] 08/07 (7) CHF (congestive heart failure): Status: Acute Problem details: iscHemic cardiomyopathy with preserved ejection fraction Qualifiers: Heart failure chronicity: chronic Heart failure type: systolic Qualified Code(s): I50.22 - Chronic systolic (congestive) heart failure (8) Abdominal aortic aneurysm (AAA): Status: Acute Problem details: 4.3?4.3 approximately 5.04?5.04 distally Qualifiers: Presence of rupture: without rupture Qualified Code(s): I71.4 - Abdo jame aortic aneurysm, without rupture Reason for Visit Reason for Visit: Reason For Visit: HYPOTENSION; DIZZY; WEAK Hospital Course Discharge Summary: Roland Diaz is a 83 year old male who carries diagnosis of moderate aortic stenosis, diastolic congestive heart failure, AICD status post V. tach for secondary prevention, coming in with chief complaint of extreme lethargy. Patient is stating that he lives alone, he is active for his age, he tries to manage his daily activities on his own, he owns a big lot and able to go out and travel 60 feet without any problems until a few days ago. Lately he has been feeling lethargy, he visited ER yesterday, he was noted to have low blood pressure, he was given IV fluids which improved his blood pressure, his metoprolol dose was reduced and he was discharged. At home after dinner he had 1 syncopal event which he describes as because of extreme lethargy he had fallen on the floor without any loss of consciousness, he did not notice any chest pain, palpitations, his AICD did not fire. He checked his blood pressure systolic blood pressure was reading as 35 mmHg, he called EMS as he had no strength to drive to the hospital this time. He is also endorsing leg pain after traveling 20 to 40 feet. He has not noticed any bluishness or cyanosis of his toes. He is overwhelmed with his medical condition at this point because he has been dealing with ear infection for which she is taking antibiotics, recently he was treated for pneumonia. He is denying diarrhea, nausea, vomiting, sick contacts, fever, shortness of breath. He is compliant with his medications. This time diagnostics in the ER revealed low blood pressure which improved with fluid resuscitation, patient was awake alert oriented x3 GCS 15 when I interviewed him, able to give me all the above-mentioned details, he is not complaining of lethargy and drowsiness during my interview.blood work done in the ER showed hypokalemia and acute kidney injury with EKG revealing prolonged QTC and 2 :1 heart block. He was admitted to the hospital under telemetry for monitoring. His antihypertensives, rate limiting drugs were withheld. His episodes of syncope were thought most likely because of combination of overdiuresis and bradycardia along with moderate to severe aortic stenosis as a contributing factor to the syncope. Eventually while holding off his rate limiting drugs his heart rate improved. For JOSAFAT his medications were withheld and he was given mild IV hydration for 24 hours after which his JOSAFAT also resolved. AICD was interrogated and did not show any events. He is been discharged in hemodynamically stable condition with adjusted medications and advised to follow-up with cardiology/Dr. Houser as an outpatient within 1 week at which time his medications will be resumed as per his blood work and hemodynamics. Patient will also have a discussion with Dr. Houser regarding a possible aortic valve replacement. Physical Exam Narrative: EXAM NARRATIVE: Patient is alert, awake and oriented x3. NECK: No jugular vein distension. HEENT: No cyanosis. No icterus. No pallor. HEART: Regular S1 and S2. 2/6 systolic murmur, rub or gallop. LUNGS: Decreased breath sound bilaterally. ABDOMEN: Soft, nontender and nondistended. Positive bowel sounds. No guarding, rebound or tenderness. CENTRAL NERVOUS SYSTEM: Grossly nonfocal. EXTREMITIES: Lower extremities with trace edema bilaterally. Discharge Data Data Completed and Pending: Completed Studies During Hospitalization Category Date Time Status XR chest 1V juan david ble [id number] Stat Exams 07/23/19 17:06 [place] [id number] Rout ine Ultrasound 07/24/19 21:00 Completed Labs from last 24 hours 07/26/19 04:42 Sodium 139 Potassium 3.8 Chloride 98 Carbon Dioxide 31 H Anion Gap 13.8 BUN 20 Creatinine 1.1 Glucose 86 Calculated Osmolal ity 284 L Calcium 8.9 Total Bilirubin 0.6 AST 28 ALT 24 Alkaline Phosphata se 95 Total Protein 6.3 L Albumin 3.5 Globulin 2.8 Vitals: Last Vital Signs Temp 97.5 F L 07/26/19 10:54 Pulse 58 L 07/26/19 10:54 Resp 18 07/26/19 10:54 BP 91/42 07/26/19 10:54 Pulse Ox 92 07/26/19 10:54 Discharge Plan Discharge Patient Disposition: Home, Self-Care Condition: Stable Prescriptions: Continued finasteride 1 mg tablet 1 mg PO DAILY RF: 0 docusate sodium [Colace] 100 mg capsule 100 mg PO DAILY RF: 0 nitroglycerin [Nitrostat] 0.4 mg tablet, sublingual 0.4 mg SUBLINGUAL Q5M PRN (Reason: Chest Pain) RF: 0 tamsulosin 0.4 mg capsule 0.4 mg PO DAILY RF: 0 clopidogrel 75 mg tablet 75 mg PO DAILY RF: 0 magnesium oxide 400 mg magnesium tablet 400 mg PO DAILY PRN (Reason: prn) RF: 0 atorvastatin 10 mg tablet 10 mg PO DAILY RF: 0 potassium chloride 10 mEq capsule, extended release 10 meq PO DAILY RF: 0 acetaminophen 325 mg Tablet 650 mg PO Q6H PRN (Reason: Mild/Mod Pain Or Temp >/= 101) Qty: 30 RF: 0 lidocaine [Lidoderm] 5 % Adhesive Patch,Medicated 1 patch topical [id number] Qty: 10 RF: 0 Changed furosemide 40 mg tablet 20 mg PO QAM 90 Days Qty: 90 RF: 3 sacubitril-valsartan 24-26 mg tablet 1 tab PO DAILY Qty: 180 RF: 2 Held amiodarone 200 mg tablet 200 mg PO DAILY Qty: 30 RF: 6 Hold Instructions: Resume on 08/09/19. Amiodarone will be resumed as an outpatient after following up with cardiology metoprolol succinate 25 mg capsule,sprinkle,ER 24hr 25 mg PO DAILY Qty: 30 RF: 0 Hold Instructions: Resume on 08/09/19. Resumption of metoprolol will be based upon patient heart rate blood pressure once he will see cardiology as an outpatient Discontinued metolazone 2.5 mg tablet 2.5 mg PO DAILY Qty: 7 RF: 1 Discharge Orders: Discharge Order (Routine); Ordered 07/26/19 Ordered By: Mishel Springer Referrals: [facility] ([facility]) [Outside] Ryan Houser MD [Physician] - 08/02/19 1:00 pm Discharge Diet: Cardiac Discharge Activity: Increase activity as tolerated Patient Instructions: Acute Kidney Injury (DC), Peripheral Vascular Disorders (DC), Bradycardia (DC) Activity Restrictions/Additional Instructions: Keep log of blood pressure pulse twice a day and bring it to cardiology clinic. Follow-up with Alla Sen or Dr. Ryan Sims in 7 days. Patient has been advised to call us in our office if he feels more dizzy spells Discharge Date/Time: 07/26/19 15:00 Discharge Attestations Time Spent in Discharge Care*: greater than 30 min Specific Discharge Activities: Specific discharge activities: educating patient, discussing with pcp/other providers, discussing with case technician/social workers/dc planners, documenting/other paperwork and evaluating patient/reviewing data Status at Discharge: Cognitive status at discharge: cognitively intact , Behavioral status at discharge: cooperative , Functional status at discharge: independent ambulation Overall status at discharge: patient is back to baseline Quality Metrics Clinical Quality Measures During this hospital stay, did patient experience: None Coding Level of Care Code 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
[2019-07-26 13:34] VITALS: BP 91/42; PULSE 58; RESP 18; TEMP 36.4; O2SAT 92
--- NOTE | 2019-07-26 15:00 | PC.NURSE ---
Reviewed patient's discharge with him at this time. Reviewed patient's medications and the up coming appointment with him. Patient verbalized understanding of the changes to his medications and up coming appointment. IV removed intact at this time. Patient tolerated well. Patient is A&Ox3. Respirations even and non-labored on room air.
[2019-07-26 15:20] VITALS: BP 91/42; PULSE 58; RESP 18; TEMP 36.4; O2SAT 92
== END 2019-07-26 15:00 | disposition home or self-care (01) | DRG 309 ==
LOC: ER 18:54 → MEDSURG 07-24 07:22
PROVIDERS: Family Medicine; Student in an Organized Health Care Education/Training Program; Admitting Provider Internal Medicine; Emergency Provider Emergency Medicine; Family Provider Nurse Practitioner Family; PCP Nurse Practitioner Family; Visit Provider Student in an Organized Health Care Education/Training Program
DX: R00.1 Bradycardia, unspecified (principal); I13.0 Hypertensive heart and chronic kidney disease with heart failure and stage 1 through stage 4 chronic kidney disease, or unspecified chronic kidney disease; I50.22 Chronic systolic (congestive) heart failure; N17.9 Acute kidney failure, unspecified; I95.2 Hypotension due to drugs; T50.915A Adverse effect of multiple unspecified drugs, medicaments and biological substances, initial encounter; I35.0 Nonrheumatic aortic (valve) stenosis; N18.9 Chronic kidney disease, unspecified; Z95.810 Presence of automatic (implantable) cardiac defibrillator; Z87.01 Personal history of pneumonia (recurrent); E87.6 Hypokalemia; I45.10 Unspecified right bundle-branch block; I71.4 Abdominal aortic aneurysm, without rupture; I25.10 Atherosclerotic heart disease of native coronary artery without angina pectoris; Z95.5 Presence of coronary angioplasty implant and graft; K21.9 Gastro-esophageal reflux disease without esophagitis; E78.5 Hyperlipidemia, unspecified; E03.9 Hypothyroidism, unspecified; I25.5 Ischemic cardiomyopathy; C61 Malignant neoplasm of prostate; I27.20 Pulmonary hypertension, unspecified; Z86.73 Personal history of transient ischemic attack (TIA), and cerebral infarction without residual deficits; Z87.891 Personal history of nicotine dependence; Z79.02 Long term (current) use of antithrombotics/antiplatelets; I73.9 Peripheral vascular disease, unspecified; E86.0 Dehydration; M79.662 Pain in left lower leg; M79.661 Pain in right lower leg; R55 Syncope and collapse; H60.90 Unspecified otitis externa, unspecified ear
CPT/HCPCS: 12345; 36415; 71045; 80048; 80053; 82550; 83735; 83880; 84484; 85025; 93005; 93925; 96360; 96361; 96372; 96375; 97116; 97161; 97530; 99283; G0378; J1644; J1940; J7030; J7040

== ENCOUNTER 2019-09-02 08:17 | Outpatient (CLI) | payer MEDICARE, SELFPAY ==
--- NOTE | 2019-09-02 08:28 | CT_ITS ---
WS: [id number] CT HEAD TECHNIQUE: Noncontrast and contrast-enhanced CT of the head. CLINICAL INFORMATION: DIZZINESS AND GIDDINESS, HEARING LOSS BILATERAL COMPARISON: None. DLP: 3176.[address] scans at [facility] use at least one of these dose optimization techniques: automat ed exposure control; mA and/or kV adjustment per patient size (includes targeted exams where dose is matched to clinical indication); or iterative reconstruction. FINDINGS: No evidence of intracranial hemorrhage or mass effect. Ventricular system and basal cisterns are odonnell nt. Mild small vessel changes. Moderate parenchymal volume loss. Chronic lacunar infarct right caudat e. Mastoid air cells are well aerated. Paranasal sinuses are well aerated. No abnormal intracranial enha ncement. Petrous and cavernous carotid calcification. Mastoid air cells and middle ears are well aera santhosh. CT/CT head wo/w con [id number] IMPRESSION: 1. Mild small vessel changes moderate parenchymal volume loss. 2. Chronic lacunar infarct right caudate. 3. Mastoid air cells are well aerated. Middle ears appear well aerated. 4. Paranasal sinuses are well aerated. 5. No abnormal intracranial enhancement.
[2019-09-02] MEDS: iohexol 300 mg/mL 100 mL Btl IV (08:49)
== END 2019-09-02 08:18 | disposition home or self-care (01) ==
PROVIDERS: Family Provider Nurse Practitioner Family; PCP Nurse Practitioner Family; Visit Provider Specialist
DX: R42 Dizziness and giddiness (principal); H90.6 Mixed conductive and sensorineural hearing loss, bilateral; I63.81 Other cerebral infarction due to occlusion or stenosis of small artery
CPT/HCPCS: 70470; Q9967

== ENCOUNTER 2019-09-02 08:35 | Outpatient (CLI) | payer MEDICARE, SELFPAY ==
--- NOTE | 2019-09-02 08:46 | XR_ITS ---
WS: [id number] RIBS RIGHT TECHNIQUE: 3 views of the right ribs CLINICAL INFORMATION: RIB PAIN, RIGHT SIDED COMPARISON: None. FINDINGS: Single lead cardiac pacer. Tortuous thoracic aorta. Aortic calcification. Osteopenia. No visualized r ight rib fractures. XR/XR ribs RT 2V* [id number] IMPRESSION: Osteopenia. No visualized acute right rib fractures.
--- NOTE | 2019-09-02 08:46 | XR_ITS ---
WS: [id number] LUMBAR SPINE TECHNIQUE: 3 views of the lumbar spine CLINICAL INFORMATION: BACK PAIN, ACUTE COMPARISON: None. FINDINGS: Osteopenia. Mild lumbar curve convex right. Disc space narrowing worse L4-L5 and L5-S1. Mild spondyli tic changes. Moderate facet arthropathy L5-S1. Abdominal aortic aneurysm measuring 6.9 cm AP. Vascula r calcification. Residual contrast in the renal collecting systems and bladder. No spondylolisthesis. Visualized sacroiliac joints are normal. Normal visualized soft tissues. Partia lly visualized bowel gas pattern is normal. XR/XR lumbar spine 2-3V* [id number] IMPRESSION: 1. Osteopenia. Mild lumbar curve convex right. 2. Mild disc space narrowing L4-L5 and L5-S1. 3. Abdominal aortic aneurysm measuring 6.8 cm AP. Recommend further evaluation with CTA abdomen pelvis
== END 2019-09-02 08:36 | disposition home or self-care (01) ==
LOC: RADWPI 08:37
PROVIDERS: Family Provider Nurse Practitioner Family; PCP Nurse Practitioner Family; Visit Provider Electrodiagnostic Medicine
DX: M54.89 Other dorsalgia (principal); R07.81 Pleurodynia; M85.88 Other specified disorders of bone density and structure, other site; M48.061 Spinal stenosis, lumbar region without neurogenic claudication; I71.4 Abdominal aortic aneurysm, without rupture
CPT/HCPCS: 71100; 72100

== ENCOUNTER 2019-09-02 15:04 | Emergency (ER) | payer MEDICARE, SELFPAY ==
[2019-09-02 15:36] VITALS: BP 143/75; PULSE 53; RESP 18; TEMP 36.8; O2SAT 96; BMI 30.7
[2019-09-02 16:13] VITALS: PULSE 57; RESP 17; O2SAT 95
--- NOTE | 2019-09-02 16:30 | W.ED.GENADLT ---
Documented by User: Zac Farrell DO 09/03/19 12:17 HPI - General Adult General: Chief complaint: General Medical Stated complaint: side pain Time Seen by Provider: 09/02/19 15:52 History of Present Illness: HPI narrative: 83-year-old male comes in complaining of right-sided rib pain reproducible with and tender with palpation. He was seen earlier in the week and sent over for plain film x-rays on the x-rays there was a concern of a AAA at a. Patient tells me he has a known abdominal aortic aneurysm about 2 to 3 months ago he had evaluated by Dr. Houser by ultrasound and was told it was stable. I cannot find an ultrasound in the chart regarding that he denies any abdominal pain no pain radiating into the groin. Denies any recent illness. Denies any respiratory illness. He does complain of the right rib pain which is worse with palpation along the ribs no recollection of trauma. Associated symptoms: Deny chest pain, dyspnea, malaise, nausea, rash or vomiting Review of Systems Const: Denies: fever(s), chills, body aches, change in appetite, fatigue or malaise ENMT: Denies: throat pain, ear or mastoid pain, nasal discharge or nasal congestion Card: Denies: chest pain, edema, dyspnea on exertion or orthopnea Resp: Denies: dyspnea, productive cough or non-productive cough GI: Denies: abdominal pain, nausea, vomiting, hematemesis, coffee ground emesis, diarrhea, constipation, bloating, hematochezia or melena : Denies: flank pain, dysuria, urinary frequency or urinary urgency Skin/Breast: Denies: rash or pruritus PFSH ED PFSH: Medical History (Updated 09/02/19 @ 19:01 by Trung Barkley DO) Abdominal aortic aneurysm (AAA) 4.3?4.3 approximately 5.04?5.04 distally Aortic stenosis ASHD (arteriosclerotic heart disease) CHF (congestive heart failure) iscHemic cardiomyopathy with preserved ejection fraction Cognitive dysfunction Elevated PSA Essential hypertension GERD (gastroesophageal reflux disease) Hyperlipidemia Hypothyroidism Ischemic cardiomyopathy EF 58%, grade 1/4 diastolic dysfunction, moderate aortic valve calcification, LVH (left ventricular hypertrophy) Prostate cancer Prostatic hypertrophy Pulmonary HTN SOB (shortness of breath) SVT (supraventricular tachycardia) TIA (transient ischemic attack) Ventricular tachycardia Status post AICD placement Surgical History S/P angioplasty with stent Coronary disease status post 3 stents S/P implantation of automatic cardioverter/defibrillator (AICD) [employer] 08/07 Family History Father CAD (coronary artery disease) Mother CAD (coronary artery disease) CHF (congestive heart failure) Brother Parkinson disease Sister Fibromyalgia Social History Smoking and tobacco status: never smoked Alcohol intake: never Lives independently: Yes Marital status: / service: No Current occupational status: retired Current gender identity: Male 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: [employer] Physical Exam Const: COMMON NORMALS: no acute distress GENERAL APPEARANCE: cooperative and comfortable ORIENTATION/CONSCIOUSNESS: Yes awake, Yes oriented to person, Yes oriented to place and Yes oriented to time HENMT: COMMON NORMALS: normocephalic, atraumatic, hearing grossly normal bilaterally, external ears normal, EAC's normal, TM's normal bilaterally, Normal nasal mucous membranes and turbinates present, moist oral mucous membranes and oropharynx normal HEAD & SCALP: normocephalic and atraumatic NOSE: Normal nasal mucous membranes and turbinates present EXTERNAL EAR: Yes external ears normal EXTERNAL AUDITORY CANAL: EAC's normal TYMPANIC MEMBRANE: TM's normal bilaterally Eye: COMMON NORMALS: Equal, round and reactive pupils present, EOMs intact bilaterally, conjunctivae normal and no scleral icterus CONJUNCTIVA: Yes conjunctivae normal PUPIL: Yes Equal, round and reactive pupils present Neck/C-Spine: COMMON NORMALS: full ROM, no lymphadenopathy, supple and no JVD Lymph: LYMPHATIC: no lymphadenopathy noted and no lymphedema noted Resp: COMMON NORMALS: normal respiratory effort, No retractions, No use of accessory muscles and clear to auscultation bilaterally AUSCULTATION: clear to auscultation bilaterally Cardio: COMMON NORMALS: no JVD, regular rate, regular rhythm and No murmurs present (Cardio) RATE: regular rate RHYTHM: regular rhythm GI: COMMON NORMALS: Soft to palpation and No hepatosplenomegaly present AUSCULTATION: Yes normoactive bowel sounds PALPATION: Yes Soft to palpation, No Tenderness to palpation present (GI), No Guarding due to palpation present (GI) and Yes No hepatosplenomegaly present Extremity: COMMON NORMALS: normal to inspection, capillary refill normal, no clubbing, cyanosis or edema, no calf tenderness and no pedal edema Neuro: SENSORIUM/ORIENTATION: Yes oriented to person, Yes oriented to place and Yes oriented to time Skin: COMMON NORMALS: no rashes or lesions noted GENERAL SKIN EXAM: no rashes or lesions noted Course Vital Signs: Vital signs: Vital Signs Temperature 98.2 F 09/02/19 15:36 Pulse Rate 60 09/02/19 20:00 Respiratory Rate 18 09/02/19 20:00 Blood Pressure 178/94 09/02/19 20:00 Pulse Oximetry 96 09/02/19 20:00 MDM - General Adult MDM Narrative: Medical decision making narrative: Care turned over to Dr. Barkley at change of shift Lab Data: Labs: Lab Results 09/02/19 09/02/19 Range/Units 16:12 16:12 WBC 4.0 (4.0-10.0) 10^3/ uL RBC 4.00 L (4.1-5.3) 10^6/u L Hgb 11.6 L (11.7-16.6) g/dL Hct 36.8 L (42.0-52.0) % MCV 92.0 (80-94) fL MCH 29.0 (28.0-34.0) pg MCHC 31.5 (30.0-36.0) g/dL RDW 14.2 (12.1-15.1) % Plt Count 149 (130-400) 10^3/c mm MPV 10.1 (7.4-10.4) fL Neut % (Auto) 72.0 % Lymph % (Auto) 10.4 % [place] % (Auto) 12.9 % Eos % (Auto) 4.2 % Baso % (Auto) 0.5 % Neut # (Auto) 2.9 (1.8-7.7) 10^3/u L Lymph # (Auto) 0.4 L (0.8-4.8) 10^3/u L [place] # (Auto) 0.5 (0.2-0.9) 10^3/u L Eos # (Auto) 0.2 (0.0-0.8) 10^3/u L Baso # (Auto) 0.0 (0.0-0.1) 10^3/u L Nucleated RBC % (a uto) 0 % Nucleated RBCs # 0.0 /100WBC Sodium 138 (136-145) mmol/L Potassium 4.0 (3.5-5.1) mmol/L Chloride 101 (98-107) mmol/L Carbon Dioxide 27 (22-29) mmol/L Anion Gap 14.0 (5-19) BUN 15 (8-23) mg/dL Creatinine 0.9 (0.7-1.2) mg/dL Glucose 95 (65-115) mg/dL Calculated Osmolal ity 282 L (285-295) mOsm/k g Calcium 8.8 (8.5-10.5) mg/dL Total Bilirubin 0.4 (0.15-1.2) mg/dL AST 18 (0-40) U/L ALT 14 (0-41) U/L Alkaline Phosphata se 101 (40-130) IU/L Total Protein 6.5 L (6.6-8.7) g/dL Albumin 4.1 (3.5-5.2) g/dL Globulin 2.4 (1.3-4.6) g/dL Discharge Plan Discharge Patient Disposition: Home, Self-Care Clinical Impression: Chest pain, musculoskeletal Condition: Stable Prescriptions: No Action finasteride 1 mg tablet 5 mg PO DAILY RF: 0 docusate sodium [Colace] 100 mg capsule 100 mg PO DAILY RF: 0 nitroglycerin [Nitrostat] 0.4 mg tablet, sublingual 0.4 mg SUBLINGUAL Q5M PRN (Reason: Chest Pain) RF: 0 tamsulosin 0.4 mg capsule 0.4 mg PO DAILY RF: 0 clopidogrel 75 mg tablet 75 mg PO DAILY RF: 0 magnesium oxide 400 mg magnesium tablet 400 mg PO DAILY PRN (Reason: prn) RF: 0 atorvastatin 10 mg tablet 10 mg PO DAILY RF: 0 potassium chloride 10 mEq capsule, extended release 10 meq PO DAILY RF: 0 pantoprazole 40 mg tablet,delayed release (DR/EC) 40 mg PO DAILY Qty: 14 RF: 2 metoprolol succinate 25 mg tablet extended release 24 hr 12.5 mg PO DAILY Qty: 90 RF: 1 amiodarone 100 mg tablet 100 mg PO DAILY Qty: 90 RF: 1 furosemide 40 mg tablet 20 mg PO QAM 90 Days Qty: 90 RF: 3 sacubitril-valsartan 24-26 mg tablet 1 tab PO DAILY Qty: 180 RF: 2 Hold Instructions: normal EF tizanidine 2 mg Tablet See Rx Instructions .ROUTE .COMPLEX RF: 0 valsartan 80 mg tablet 80 mg PO DAILY RF: 0 ibuprofen 200 mg Tablet 200 - 800 mg PO PRN RF: 0 Discharge Orders: Discharge Order (Routine); Ordered 09/02/19 Ordered By: Trung Barkley Referrals: Ryan Houser MD [Physician] - 4-7 days Ruth Chavez FNP [Primary Care Provider] - 4-7 days Discharge Diet: Usual diet Discharge Activity: Increase activity as tolerated Patient Instructions: Chest Pain - Chest Wall Activity Restrictions/Additional Instructions: Return for fever, cough, shortness of breath, other chest discomfort, other concerning symptoms. Be sure to follow-up with your vice president safety, and let them know about the lack of blood flow to your legs. Continue to take your muscle relaxers as prescribed by your family physician for the pain. Discharge Date/Time: 09/02/19 20:01 Coding Level of Care Code ED Planisher for Chg Fwd Exam Comprehensive Documented by User: Trung Barkley DO 09/03/19 03:07 HPI - General Adult General: Chief complaint: General Medical Stated complaint: side pain Time Seen by Provider: 09/02/19 15:52 PFSH ED PFSH: Medical History (Updated 09/02/19 @ 19:01 by Trung Barkley DO) Abdominal aortic aneurysm (AAA) 4.3?4.3 approximately 5.04?5.04 distally Aortic stenosis ASHD (arteriosclerotic heart disease) CHF (congestive heart failure) iscHemic cardiomyopathy with preserved ejection fraction Cognitive dysfunction Elevated PSA Essential hypertension GERD (gastroesophageal reflux disease) Hyperlipidemia Hypothyroidism Ischemic cardiomyopathy EF 58%, grade 1/4 diastolic dysfunction, moderate aortic valve calcification, LVH (left ventricular hypertrophy) Prostate cancer Prostatic hypertrophy Pulmonary HTN SOB (shortness of breath) SVT (supraventricular tachycardia) TIA (transient ischemic attack) Ventricular tachycardia Status post AICD placement Surgical History S/P angioplasty with stent Coronary disease status post 3 stents S/P implantation of automatic cardioverter/defibrillator (AICD) [employer] 08/07 Family History Father CAD (coronary artery disease) Mother CAD (coronary artery disease) CHF (congestive heart failure) Brother Parkinson disease Sister Fibromyalgia Social History Smoking and tobacco status: never smoked Alcohol intake: never Lives independently: Yes Marital status: / service: No Current occupational status: retired Current gender identity: Male 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 Reyna at shift change. This gentleman has reproducible right-sided thoracolumbar/right rib tenderness. There is no rash he has had a couple of days. He states the pain was relieved this morning when he took half of a muscle relaxer given to him by his family physician he was sent because of concern over an abdominal aortic aneurysm seen on lumbar spine films. By CT angio of the aorta shows a 5.1 cm aneurysm without active extravasation, or dissection. There is significant lack of blood flow to both lower extremities presumed to be chronic. I interviewed the patient about this. He says that his legs are wobbly , but he does not have overt claudication symptoms. He has a vice president safety, and will follow up with his vice president safety as an outpatient regarding this. Lab Data: Labs: Lab Results 06/12/20 06/12/20 Range/Units 16:12 16:12 WBC 4.0 (4.0-10.0) 10^3/ uL RBC 4.00 L (4.1-5.3) 10^6/u L Hgb 11.6 L (11.7-16.6) g/dL Hct 36.8 L (42.0-52.0) % MCV 92.0 (80-94) fL MCH 29.0 (28.0-34.0) pg MCHC 31.5 (30.0-36.0) g/dL RDW 14.2 (12.1-15.1) % Plt Count 149 (130-400) 10^3/c mm MPV 10.1 (7.4-10.4) fL Neut % (Auto) 72.0 % Lymph % (Auto) 10.4 % [place] % (Auto) 12.9 % Eos % (Auto) 4.2 % Baso % (Auto) 0.5 % Neut # (Auto) 2.9 (1.8-7.7) 10^3/u L Lymph # (Auto) 0.4 L (0.8-4.8) 10^3/u L [place] # (Auto) 0.5 (0.2-0.9) 10^3/u L Eos # (Auto) 0.2 (0.0-0.8) 10^3/u L Baso # (Auto) 0.0 (0.0-0.1) 10^3/u L Nucleated RBC % (a uto) 0 % Nucleated RBCs # 0.0 /100WBC Sodium 138 (136-145) mmol/L Potassium 4.0 (3.5-5.1) mmol/L Chloride 101 (98-107) mmol/L Carbon Dioxide 27 (22-29) mmol/L Anion Gap 14.0 (5-19) BUN 15 (8-23) mg/dL Creatinine 0.9 (0.7-1.2) mg/dL Glucose 95 (65-115) mg/dL Calculated Osmolal ity 282 L (285-295) mOsm/k g Calcium 8.8 (8.5-10.5) mg/dL Total Bilirubin 0.4 (0.15-1.2) mg/dL AST 18 (0-40) U/L ALT 14 (0-41) U/L Alkaline Phosphata se 101 (40-130) IU/L Total Protein 6.5 L (6.6-8.7) g/dL Albumin 4.1 (3.5-5.2) g/dL Globulin 2.4 (1.3-4.6) g/dL Discharge Plan Discharge Patient Disposition: Home, Self-Care Clinical Impression: Chest pain, musculoskeletal Condition: Stable Prescriptions: No Action finasteride 1 mg tablet 5 mg PO DAILY RF: 0 docusate sodium [Colace] 100 mg capsule 100 mg PO DAILY RF: 0 nitroglycerin [Nitrostat] 0.4 mg tablet, sublingual 0.4 mg SUBLINGUAL Q5M PRN (Reason: Chest Pain) RF: 0 tamsulosin 0.4 mg capsule 0.4 mg PO DAILY RF: 0 clopidogrel 75 mg tablet 75 mg PO DAILY RF: 0 magnesium oxide 400 mg magnesium tablet 400 mg PO DAILY PRN (Reason: prn) RF: 0 atorvastatin 10 mg tablet 10 mg PO DAILY RF: 0 potassium chloride 10 mEq capsule, extended release 10 meq PO DAILY RF: 0 pantoprazole 40 mg tablet,delayed release (DR/EC) 40 mg PO DAILY Qty: 14 RF: 2 metoprolol succinate 25 mg tablet extended release 24 hr 12.5 mg PO DAILY Qty: 90 RF: 1 amiodarone 100 mg tablet 100 mg PO DAILY Qty: 90 RF: 1 furosemide 40 mg tablet 20 mg PO QAM 90 Days Qty: 90 RF: 3 sacubitril-valsartan 24-26 mg tablet 1 tab PO DAILY Qty: 180 RF: 2 Hold Instructions: normal EF tizanidine 2 mg Tablet See Rx Instructions .ROUTE .COMPLEX RF: 0 valsartan 80 mg tablet 80 mg PO DAILY RF: 0 ibuprofen 200 mg Tablet 200 - 800 mg PO PRN RF: 0 Discharge Orders: Discharge Order (Routine); Ordered 09/02/19 Ordered By: Trung Barkley Referrals: Ryan Houser MD [Physician] - 4-7 days Ruth Chavez FNP [Primary Care Provider] - 4-7 days Discharge Diet: Usual diet Discharge Activity: Increase activity as tolerated Patient Instructions: Chest Pain - Chest Wall Activity Restrictions/Additional Instructions: Return for fever, cough, shortness of breath, other chest discomfort, other concerning symptoms. Be sure to follow-up with your vice president safety, and let them know about the lack of blood flow to your legs. Continue to take your muscle relaxers as prescribed by your family physician for the pain. Discharge Date/Time: 09/02/19 20:01 Coding Level of Care Code ED Planisher for Jose Carlos Fwd Exam Comprehensive
--- NOTE | 2019-09-02 16:31 | CTR_ITS ---
PROCEDURE INFORMATION: Exam: CTA Angiogram of the Abdominal Aorta and Bilateral Lower Extremities (Run-off) With IV Contrast Exam date and time: 09/02/2019 4:52 PM Age: 83 years old Clinical indication: Abdominal pain; Localized; Right upper quadrant (ruq); Patient HX: PT w known aaa C/O R sided pain rib/ruq abd denies any le problems TECHNIQUE: Imaging protocol: CT angiogram of the abdominal aorta, pelvis and bilateral lower extremities with IV iodinated contrast. 3D rendering: MIP and/or 3D reconstructed images were created by the technologist. Radiation optimization: All CT scans at this facility use at least one of these dose optimization techniques: automated exposure control; mA and/or kV adjustment per patient size (includes targeted exams where dose is matched to clinical indication); or iterative reconstruction. Contrast material: VISI 320; Contrast volume: 75 ml; Contrast route: 20G; COMPARISON: [place] [id number] 07/24/2019 6:45 AM RADIATION DOSE METRICS: Total DLP: 0.24 mGy-cm FINDINGS: Aorta: Examination reveals a mild infrarenal fusiform abdominal aortic aneurysm. Maximum AP diameter of the lumen 5.1 cm and transverse diameter 5.1 cm. The aneurysm begins just below the renal arteries. Length of the aneurysm approximately 11 cm. Prominent intramural thrombus. No significant true lumen stenosis. No visible intimal flap or dissection. Moderately advanced arterial sclerotic disease. 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 No intimal flap or dissection. Superior mesenteric artery without aneurysmal dilatation or evidence of hemodynamically significant stenosis at its ostium. Inferior mesenteric artery patent. Renal arteries: Evidence of hemodynamically significant stenosis at the ostium of the right renal artery estimated 60-70%. No visible hemodynamically significant stenosis of the left renal artery. Right iliac arteries: Left and right common iliac arteries nonaneurysmal. No visible occlusion. External and internal iliacs nonaneurysmal. No visible occlusion. Right femoral/popliteal arteries: Patent bilateral popliteal arteries to the trifurcation bilaterally without hemodynamically significant stenosis or evidence of occlusion. Right infrapopliteal arteries: No occlusion or significant stenosis. Left iliac arteries: No occlusion or significant stenosis. Left femoral/popliteal arteries: Common femoral, superficial femoral, and profundal arteries patent bilaterally without occlusion or hemodynamically significant stenosis. Course of the superficial femoral artery to the popliteal artery appears intact without visible evidence of hemodynamically significant stenosis or occlusion. Left infrapopliteal arteries: Poor visualization of the anterior tibial, posterior tibial, and peroneal vessels bilaterally, left leg with near complete nonvisualization and only partial proximal visualization of the right peroneal and anterior tibial artery. No visible contrast to the level of the ankle and feet. Heart: Limited assessment lung bases reveals cardiomegaly. Coronary artery disease. Pacemaker. Left ventricular prominence. No visible pericardial effusion. Pulmonary fibrosis. Parenchymal scar. Evidence of COPD/chronic bronchitis. Liver: No mass. Gallbladder and bile ducts: Gallbladder contains a solitary very tiny gallstone. No visible intra or extrahepatic biliary ectasia. Pancreas: Pancreas is atrophic. No visible pancreatic ductal ectasia. Spleen: Small splenic cavernous hemangioma measuring 16 mm. Spleen otherwise unremarkable. Adrenals: Normal. No mass. Kidneys and ureters: Simple right renal cortical cysts. Bosniak 1. No follow-up recommended. Kidneys appear otherwise unremarkable. No hydronephrosis or perinephric fluid. Stomach and bowel: Extensive diverticulosis coli primarily the sigmoid colon without visible evidence of acute diverticulitis. Appendix: The appendix is noninflamed. Bladder: Unremarkable. No mass. Reproductive: Prostate hypertrophy. Intraperitoneal space: Evidence of chronic mesenteritis with dense dystrophic mesenteric calcifications. No visible intraperitoneal ascites. Lymph nodes: No visible active intraperitoneal or retroperitoneal lymphadenopathy. Bones/joints: Suspect old right patellar fracture. Osteoarthritis. Age-appropriate degenerative disease and degenerative disc disease of the spine most advanced L5/S1. Facet arthrosis. Soft tissues: Unremarkable. Other findings: A total 1331 images were acquired that will require assessment and interpretation. CT/CT angio abd aorta runof [id number] IMPRESSION: 1. Poor visualization of the anterior tibial, posterior tibial, and peroneal vessels bilaterally, left leg with near complete nonvisualization and only partial proximal visualization of the right peroneal and anterior tibial artery. No visible contrast to the level of the ankle and feet. 2. Examination reveals a mild infrarenal fusiform abdominal aortic aneurysm. Maximum AP diameter of the lumen 5.1 cm and transverse diameter 5.1 cm. The aneurysm begins just below the renal arteries. Length of the aneurysm approximately 11 cm. Prominent intramural thrombus. No significant true lumen stenosis. No visible intimal flap or dissection. Moderately advanced arterial sclerotic disease. 3. 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 4. Evidence of hemodynamically significant stenosis at the ostium of the right renal artery estimated 60-70%. 5. Other nonurgent, nonemergent, chronic, and age related findings as detailed in text above. Radiation Dose CTDIVOL = (mGy): DLP = 2050.24 (mGy-cm)
[2019-09-02 16:56] LABS: Basophils % 0.5 %; Eosinophils # 0.2 10^3/uL (0.0-0.8); Eosinophils % 4.2 %; Hematocrit 36.8 % (42.0-52.0); Hemoglobin 11.6 g/dL (11.7-16.6); Lymphocytes # 0.4 10^3/uL (0.8-4.8); Lymphocytes % 10.4 %; Mean Corpuscular HGB Conc 31.5 g/dL (30.0-36.0); Mean Platelet Volume 10.1 fL (7.4-10.4); Monocytes # 0.5 10^3/uL (0.2-0.9); Monocytes % 12.9 %; Neutrophils # 2.9 10^3/uL (1.8-7.7); Nucleated Red Blood Cells % 0 %; Platelet Count 149 10^3/cmm (130-400); Red Cell Distribution Width 14.2 % (12.1-15.1)
[2019-09-02 17:05] LABS: Alanine Aminotransferase 14 U/L (0-41); Albumin Level 4.1 g/dL (3.5-5.2); Alkaline Phosphatase 101 IU/L (40-130); Aspartate Amino Transferase 18 U/L (0-40); Blood Urea Nitrogen 15 mg/dL (8-23); Calcium 8.8 mg/dL (8.5-10.5); Carbon Dioxide 27 mmol/L (22-29); Chloride 101 mmol/L (98-107); Globulin 2.4 g/dL (1.3-4.6); Glucose 95 mg/dL (65-115); Osmolality Calculated 282 mOsm/kg (285-295); Sodium 138 mmol/L (136-145); Total Bilirubin 0.4 mg/dL (0.15-1.2); Total Protein 6.5 g/dL (6.6-8.7)
[2019-09-02 17:18] VITALS: BP 139/76
[2019-09-02] MEDS: iodixanol 320 mg/mL 100mL Btl IV (17:49)
[2019-09-02 18:00] VITALS: BP 164/95; PULSE 58; RESP 18; O2SAT 94
[2019-09-02] MEDS: HYDROcodone-acetaminophen 5-325 mg Tablet 1 TAB PO (19:55)
[2019-09-02 20:00] VITALS: BP 178/94; PULSE 60; RESP 18; O2SAT 96
--- NOTE | 2019-09-05 10:12 | DCPLANNER ---
program manager slp had message to schedule a follow up appointment for patient with [facility]. program manager slp called [facility], spoke with Janina, gave clinic patients information. program manager slp was told that patients information would be printed and reviewed. Clinic will call patient with appointment information.
--- NOTE | 2019-09-14 10:20 | DCPLANNER ---
Patient has a follow up appointment scheduled for Friday, October 04, 2019 at 2:[address] Houser. Clinic will call patient with appointment information.
--- NOTE | 2019-10-05 15:19 | DCPLANNER ---
Patient did attend appointment scheduled for 10.04.19 with [facility].
== END 2019-09-02 20:01 | disposition home or self-care (01) ==
PROVIDERS: Family Medicine; Emergency Provider Emergency Medicine; PCP Nurse Practitioner Family
DX: R07.89 Other chest pain (principal); Z79.02 Long term (current) use of antithrombotics/antiplatelets; I11.0 Hypertensive heart disease with heart failure; I50.9 Heart failure, unspecified; E78.5 Hyperlipidemia, unspecified; Z85.46 Personal history of malignant neoplasm of prostate; Z86.73 Personal history of transient ischemic attack (TIA), and cerebral infarction without residual deficits
CPT/HCPCS: 12345; 75635; 80053; 85025; 99283; Q9967

== ENCOUNTER → 2019-10-24 15:21 | Outpatient (BNVA) | payer MEDICARE, SELFPAY | PROVIDERS: PCP Nurse Practitioner Family; Visit Provider Dermatology | DX: L73.9 Follicular disorder, unspecified (principal); L57.0 Actinic keratosis; L57.8 Other skin changes due to chronic exposure to nonionizing radiation; L72.11 Pilar cyst; L82.1 Other seborrheic keratosis; W57.XXXA Bitten or stung by nonvenomous insect and other nonvenomous arthropods, initial encounter; X58.XXXA Exposure to other specified factors, initial encounter; R23.8 Other skin changes; Z85.828 Personal history of other malignant neoplasm of skin | CPT/HCPCS: 17004; 99203 ==

== ENCOUNTER 2019-10-27 11:45 | Outpatient (RCR) | payer MEDICARE, SELFPAY | END 2019-11-21 23:59 | disposition home or self-care (01) | LOC: SPT 11:45 | PROVIDERS: PCP Nurse Practitioner Family; Referring Provider Otolaryngology; Visit Provider Otolaryngology | DX: R42 Dizziness and giddiness (principal) | CPT/HCPCS: 95992; 97112; 97162; 97164 ==

== ENCOUNTER 2020-09-17 11:20 | Outpatient (CLI) | payer MEDICARE, SELFPAY ==
--- NOTE | 2020-09-17 11:45 | USCV_ITS ---
Roland Diaz Age: 84 Gender: M : 1935 Exam Date: 09/17/2020 11:54 Ordering Phys: Tarah Laen MD ([email or web address]) Technologist: Cristina Mayers [place] [facility] [place]: RECHECK BP: / HR: 59 Rhythm: Sinus Technical Quality: Adequate MEASUREMENTS (Male / Female) Normal Values 2D ECHO LV Diastolic Diameter PLAX 6.9 cm 4.2 - 5.9 / 3.9 - 5.3 cm LV Systolic Diameter PLAX 3.7 cm LV Chamber Size 3.8 cm IVS Diastolic Thickness 1.7 cm 0.6 - 1.0 / 0.6 - 0.9 cm IVS Systolic Thickness 2.3 cm LVPW Diastolic Thickness 1.8 cm 0.6 - 1.0 / 0.6 - 0.9 cm LVPW Systolic Thickness 2.2 cm RV Chamber Size 4.1 cm LVOT Diameter 2.0 cm LV Ejection Fraction 2D Teich 76.2 % LA Diameter 5.5 cm LA Width 4.3 cm LA Height 5.5 cm RA Width 3.9 cm RA Height 4.1 cm Aorta at Sinotubular Diameter 2.9 cm M-MODE LV Diastolic Diameter MM 6.9 cm 4.2 - 5.9 / 3.9 - 5.3 cm LV Systolic Diameter MM 4.0 cm LV Ejection Fraction MM Teich 71.5 % IVS Diastolic Thickness MM 1.8 cm 0.6 - 1.0 / 0.6 - 0.9 cm IVS Systolic Thickness MM 2.0 cm LVPW Diastolic Thickness MM 1.8 cm 0.6 - 1.0 / 0.6 - 0.9 cm LVPW Systolic Thickness MM 2.2 cm Aortic Annulus Diameter 3.0 cm LA Ao Ratio MM 2.0 MV E Point Septal Separation 0.6 cm DOPPLER AV Peak Velocity 393.0 cm/s LVOT Peak Velocity 75.0 cm/s AV Area Cont Eq vti 0.6 cm squared AV Area Cont Eq pk 0.6 cm squared MV Area PHT 3.5 cm squared Mitral E to A Ratio 1.9 MV E' Velocity 80.5 cm/s Mitral E to MV E' Ratio 24.1 Mitral E to LV E' Lateral Ratio 30.7 Mitral E to LV E' Septal Ratio 19.8 TR Peak Velocity 291.3 cm/s TR Peak Gradient 33.9 mmHg TR Mean Velocity 208.6 cm/s TR Mean Gradient 20.3 mmHg TR Velocity Time Integral 104.7 cm TV Peak E Velocity 71.0 cm/s PV Peak Velocity 74.0 cm/s RV Acceleration Time 0.1 s RV Ejection Time 0.3 s RV AcT/ET 0.4 FINDINGS Left Ventricle Normal left ventricular cavity size. Normal left ventricular systolic function. No regional wall motion abnormalities. Left ventricular ejection fraction is estimated at 60 %. Grade II/IV diastolic dysfunction, moderately elevated filling pressures. Right Ventricle The right ventricle is normal in size and function. RVSP could not be calculated due to incomplete tricuspid regurgitation velocity profile. Right Atrium The right atrium is normal in size. Left Atrium Moderately increased left atrial size. Mitral Valve Moderately thickened mitral valve. Moderate mitral annular calcification. No mitral valve stenosis. Severe mitral valve regurgitation. Aortic Valve Severe aortic valve calcification. Severe aortic valve stenosis, mean gradient 30.1 mmHg, LEW 0.57 cm squaredmild aortic valve regurgitation. . Tricuspid Valve Structurally normal tricuspid valve without significant stenosis or regurgitation. Pulmonic Valve Structurally normal pulmonic valve without significant stenosis. There is no pulmonic regurgitation. Pericardium Normal pericardium without effusion. Aorta Normal ascending aorta dimension. CONCLUSIONS 1-Normal left ventricular cavity size. Normal left ventricular systolic function. No regional wall motion abnormalities. Left ventricular ejection fraction is estimated at 60 %. Grade II/IV diastolic dysfunction, moderately elevated filling pressures. 2-Moderately increased left atrial size. 3-Moderately thickened mitral valve. Moderate mitral annular calcification. No mitral valve stenosis. Severe mitral valve regurgitation. 4-Severe aortic valve calcification. Severe aortic valve stenosis, mean gradient 30.1 mmHg, LEW 0.57 cm squaredmild aortic valve regurgitation. . 5-The right ventricle is normal in size and function. RVSP could not be calculated due to incomplete tricuspid regurgitation velocity profile. 6-There is no pericardial effusion. 7-When compared to the prior echocardiogram dated May 03, 2019 there is worsening of mitral valve regurgitation from moderate to severe and aortic stenosis which remains in severe category with aortic valve area 0.[address] MD (Electronically Signed) Final Date: 19 September 2020 18:24 S
== END 2020-09-17 11:21 | disposition home or self-care (01) ==
PROVIDERS: PCP Nurse Practitioner Family; Visit Provider Internal Medicine Cardiovascular Disease
DX: R06.02 Shortness of breath (principal); I08.0 Rheumatic disorders of both mitral and aortic valves
CPT/HCPCS: 93306

== ENCOUNTER → 2020-09-25 15:39 | Outpatient (BNVA) | payer MEDICARE, SELFPAY | PROVIDERS: PCP Nurse Practitioner Family; Visit Provider Nurse Practitioner Family | DX: I35.0 Nonrheumatic aortic (valve) stenosis (principal) | CPT/HCPCS: 80048; 85025 ==

== ENCOUNTER → 2020-11-01 11:03 | Outpatient (BNVA) | payer MEDICARE, SELFPAY | PROVIDERS: PCP Clinical Nurse Specialist Adult Health; Visit Provider Internal Medicine Cardiovascular Disease | DX: Z01.818 Encounter for other preprocedural examination (principal); I25.10 Atherosclerotic heart disease of native coronary artery without angina pectoris; I25.5 Ischemic cardiomyopathy; Z20.822 Contact with and (suspected) exposure to COVID-19 | CPT/HCPCS: 80048; 85025; 85610; 87635 ==

== ENCOUNTER 2020-11-06 05:41 | Day surgery (SDC) | payer MEDICARE, SELFPAY ==
[2020-11-06] VITALS (16 sets, daily range): BP systolic 139–174; BP diastolic 75–108; PULSE 54–72; RESP 15–20; TEMP 36.8; O2SAT 89–97; BMI 30.7
--- NOTE | 2020-11-06 06:00 | XACV_ITS ---
Ht: 180 cm Wt: 100 kg BSA: 2.26 m2 Gender: Male : 1935 Any Known Allergies: No known allergies Exam Priority: Routine Indication(s): - Evaluation for possible valve surgery Procedure(s): Procedure Description: Diagnostic procedure Procedure Description: Left Heart Catheterization Procedure Description: Coronary Angiography Diagnostic Findings * Left Main has no disease. * Mid Left Anterior Descending: minimal 30% stenosis, INDY: 3 flow. * Distal Circumflex to AV groove continuation of Circumflex Artery: subtotal occlusion, INDY: 0 flow. * Proximal Right Coronary Artery to AV groove continuation of Circumflex Artery collaterallization. * Proximal Right Coronary Artery to Distal Right Coronary Artery collaterallization. * Mid Right Coronary Artery: total occlusion, INDY: 0 flow. * Coronary angiography shows co-dominance. Conclusions 1. There is total occlusion coronary artery disease with three vessel disease. Recommendations * Continue current medical management and risk factor modification. * Patient be referred for TAVR . Pressures Phase:Rest AO : / ( -1 ) @ 7:06:00 AM 132 / 76 ( 65 ) @ 7:26:00 AM 128 / 68 ( 92 ) @ 7:40:00 AM 164 / 50 ( 98 ) @ 7:49:00 AM LV : 189 / 3 / 21 @ 7:49:00 AM 189 / 3 / 22 @ 7:49:00 AM Clinical Evaluation EBL: 5mL-10mL Procedural Details Procedure Consent Obtained. Admit Source: Out Patient. Equipment: 5F - Femoral. Equipment: 5F - Radial. Equipment: 6F - Femoral. Equipment: 6F - Radial. Heparinized Saline (2 units/mL), 1000 mL bag. Cardiac Cath Pack. ACIST Manifold Kit Model BT 2000. Pre-Procedure Time Out. Identified patient by full name and date of as verbalized by the patient/guarantor. Does the consent match the physician's order: Yes. Accurate & Complete Informed Consent: Yes. Inpatient/Outpatient History & Physical on Chart: Yes. If H&P is completed, is and addenduem needed: No; If yes, is the addendum complete: N/A. Visualize and Verify Site with Patient/Guarantor: N/A. Relevant Radiology Images available: N/A. The risks, benefits, and alternatives of sedation and/or procedure were discussed by physician. The patient agrees to continue. Procedure started. [facility] Clinical Fraility Score: 3: Managing Well. Gravity Prospecting Observer Indications: Valvular Disease. Chest Pain Symptom Assessment: PRE VALVE CLEARANCE. Cardiovascular Instability: No. Correct patient, site and procedure confirmed by cath team. Current diagnosis: Pre Valve surgical clearance. PERRLA. Strong, equal hand foot gatherer bilaterally. Lungs clear x 5 lobes. IV Site on Arrival: 18 gauge in the left anticubital. IV Fluids: 0.9% NaCl at KVO. 0 mL infused prior to hemodialysis lab technician. Pre Procedural Pulses: bilateral radial was 3+. Pre Procedural Pulses: bilateral posterior tibial was 1+. Pre Procedural Pulses: bilateral dorsalis pedis was 1+. Oxygen started at 2liters/min via nasal canula. right groin was prepped with chloroprep then draped in the usual sterile fashion. right radial was prepped with chloroprep then draped in the usual sterile fashion. Physician notified. Baseline sample Acquired. HR: 63 BPM. Baseline sample Acquired. HR: 60 BPM. Physician arrived. Current Diagnosis : AORTIC STENOSIS- SURGICAL VALVE CLEARANCE. Physician scrubbed in. Immediate Pre-Procedure Time Out. Correct Patient: Yes; Correct Procedure: Yes; Correct Site: Yes; Correct Patient Position: Yes; Correct Supplies: Yes; Dried Flammable Prep: Yes; Blood Products Available: N/A;. Lidocaine 1% infiltrated to the right radial. Arterial access obtained. A Access Closureumo 5 Fr Ben Radial Catheter, 110cm was advanced over the wire and used for Right coronary angiography. Catheter seated in the RCA. Multiple views taken of right coronary artery. Catheter redirected to the LCA. Unable to seat catheter seated in the LCS. Catheter removed over the exchange wire. A 5 jamaican JL5 catheter in over wire. Catheter seated in the LCS. Multiple views taken of left coronary artery. Catheter removed over the Stiff angled glidewire. A 5 jamaican MPA1 catheter in over the glidewire. EDP Sample taken: LV 189/3,22; HR: 58 BPM; SpO2: 95%. Pullback taken: LV Off; AO Off; Mean: , Peak to Peak: , SEP: ; HR: 58 BPM; SpO2: 97%. Catheter removed over the exchange wire. Physician review of films. Physician scrubbed out. A TR Band was successful obtaining hemostatsis at the Right Radial artery insertion site. TR band placed. Hemostasis obtained. Post Procedure: Pulses reassessed and unchanged. PERRLA. Strong, equal hand foot gatherer bilaterally. No VTE prophylaxis required. Medication's Wasted: Lidocaine 1% = 15 ml. Medication's Wasted: Nitro = 49.8 mg. Medication's Wasted: Heparin = 1000 units. Medication's Wasted: Versed = 1 mg. Medication's Wasted: Fentanyl = 25 mcg. Total IV fluids: 57 mL. Vital chart was stopped. Fluoro: 7:07. Contrast type used: Omnipaque 300 mgI/mL, 500 mL bottle. Omnipaque 85 ml. Post-op diagnosis: Severe Aortic Stenosis; Patent LAD stent. Complications: None. Estimated blood loss: 5mL-10mL. Procedure completed. Patient transferred by stretcher to CPRU. Access Site Site: Right Radial artery Sheath Size: 6 Fr Hemostasis Method: TR Band Hemostasis Success: Successful Procedure Medications Start: 8:11 AM Stop: 8:11 AM Medication: Fentanyl Amount: 50 mcg Route: I.V. Start: 8:16 AM Stop: 8:16 AM Medication: Versed Amount: 1 mg Route: I.V. Start: 8:24 AM Stop: 8:24 AM Medication: Nitrogylcerin Amount: 200 mcg Route: I.A. Start: 8:25 AM Stop: 8:25 AM Medication: Versed 1 mg and Fentanyl 25 mcg Amount: 1 Route: I.V. Start: 8:27 AM Stop: 8:27 AM Medication: Heparin Amount: 5000 units Route: I.V. Start: 8:44 AM Stop: 8:44 AM Medication: Versed Amount: 1 mg Route: I.V. I, the attending physician, have reviewed and verified all procedure medications. Yes, all medications given per verbal order History/Risk Factors Hypertension: Yes Dyslipidemia: Yes Peripheral Arterial Disease (PAD): No Myocardial Infarction (CT): No Obesity: Yes Prior Interventions PCI: Yes CABG: No Valve Surgery: No Date of PCI: 07/21/2017 Report Signatures Finalized by Tarah Lane MD on 11/19/2020 09:34 PM
[2020-11-06] MEDS: diphenhydrAMINE 50 mg Capsule PO (06:34)
--- NOTE | 2020-11-06 08:03 | W.PM.OPSFHP ---
Same Day Surgery H&P Indication for Procedure/HPI DATE OF PROCEDURE: November 06, 2020 CHIEF COMPLAINT/INDICATIONFOR SURGICAL PROCEDURE: Worsening of shortness of breath and heart failure symptoms in a patient with severe aortic stenosis PREOP DIAGNOSIS: Severe aortic stenosis, ischemic cardiomyopathy, prevalve surgery PLANNED PROCEDRUE: Operation Date: 11/06/20 07:00 Proposed Procedures p Left Cardiac Catheterization 90501 I35.0(Left) - Tarah Lane MD 85-year-old male past medical history significant for severe multivessel coronary artery disease with chronically occluded RCA, ramus and stents to LAD, history of systolic heart failure, history of severe LV dysfunction in the past from moderately depressed now to 60 % as per last echocardiogram in August 2020, during the same echocardiogram it was learned that aortic stenosis has been severely stenotic with aortic valve area of 0.5 cm? and mean gradient of 30 mm however in the last few weeks patient has been deteriorating with recurrent heart failure getting more short of breath lack of energy and difficult to manage heart failure , patient has been referred for TAVR. Today he is brought in for preop left heart cath. He also carries a history of abdominal aortic aneurysm. Medications/Allergies* Home Medications Medication Instructions Recorded Confirmed Type docusate sodium 100 mg capsule 100 mg PO DAILY cap 04/05/19 11/06/20 History finasteride 1 mg tablet 5 mg PO DAILY tab 04/05/19 11/06/20 History magnesium oxide 400 mg PO DAILY PRN tab 04/05/19 11/06/20 History nitroglycerin 0.4 mg sublingual 0.4 mg SUBLINGUAL Q5M PRN 04/05/19 11/06/20 History tablet potassium chloride 10 mEq 10 meq PO DAILY cap 04/05/19 11/06/20 History capsule,extended release tamsulosin 0.4 mg capsule 0.4 mg PO DAILY cap 04/05/19 11/06/20 History ibuprofen 200 - 800 mg PO PRN 09/02/19 11/06/20 History ascorbic acid (vitamin C) [Vitamin 1,000 mg PO DAILY 11/06/20 11/06/20 History C] furosemide [Lasix] 80 mg PO DAILY 11/06/20 11/06/20 History vitamin A 25,000 unit PO DAILY 11/06/20 11/06/20 History vitamin B complex [Super B Complex] 1 tab PO DAILY 11/06/20 11/06/20 History zinc 50 mg PO DAILY 11/06/20 11/06/20 History Allergies/Adverse Reactions Allergy/AdvReac Type Severity Reaction Status Date / Time No Known Allergies Allergy Verified 11/05/20 11:48 Current Medications: Generic Name Dose Route Start Last Admin Trade Name Mayda PRN Reason Stop Dose Admin Sodium Chloride 1,000 mls @ 50 mls/hr 11/06/20 06:00 11/06/20 06:34 Sodium Chloride 0.9% IV 11/07/20 01:59 Not Given .Q20H ONE Pertinent History/Comorbid Conditions* Medical History (Updated 07/30/20 @ 20:[address] MD) Abdominal aortic aneurysm (AAA) 4.3?4.3 approximately 5.04?5.04 distally Aortic stenosis ASHD (arteriosclerotic heart disease) CHF (congestive heart failure) iscHemic cardiomyopathy with preserved ejection fraction Cognitive dysfunction Elevated PSA Essential hypertension GERD (gastroesophageal reflux disease) History of nonmelanoma skin cancer Hyperlipidemia Hypothyroidism Ischemic cardiomyopathy EF 58%, grade 1/4 diastolic dysfunction, moderate aortic valve calcification, LVH (left ventricular hypertrophy) Prostate cancer Prostatic hypertrophy Pulmonary HTN SOB (shortness of breath) SVT (supraventricular tachycardia) TIA (transient ischemic attack) Ventricular tachycardia Status post AICD placement Surgical History (Updated 07/23/19 @ 19:23 by Tarah Alexis MD) S/P angioplasty with stent Coronary disease status post 3 stents S/P implantation of automatic cardioverter/defibrillator (AICD) [facility] [employer] 08/07 Family History (Updated 10/24/19 @ 15:43 by Maribel Jones LPN) CAD (coronary artery disease) Father Mother CHF (congestive heart failure) Mother Fibromyalgia Sister Cancer Parkinson disease Brother Social History Smoking and tobacco status: never smoked Alcohol intake: never Lives independently: Yes Marital status: / service: No Current occupational status: retired History of recent travel: No Current gender identity: Male Gillian/Mosque: Alevism Pertinent Exam Findings alert, oriented x 3, clear to auscultation bilaterally and regular rate & rhythm Conscious Sedation Assessment PATIENT ASSESSED PRIOR TO SEDATION, WITH NO CHANGE NOTED: Yes AIRWAY EVAL/ANESTHESIA PLAN: ASA II, Risks, benefits & alternatives of sedation and/or procedure discussed and Patient agrees to continue as planned Recommendations Surgery/Procedure today Coding Level of Care Code Acute Food And Nutrition Professor for Jose Carlos Omer
--- NOTE | 2020-11-06 08:12 | W.PM.OPSUD ---
Surgery/Procedure H&P Update DATE OF PROCEDURE: November 06, 2020 DATE H&P PERFORMED: 11/06/20 H&P UPDATE INFORMATION: I have reviewed H&P completed within last 30 days and I have examined patient prior to procedure PREOP DIAGNOSIS: Severe aortic stenosis, ischemic cardiomyopathy, prevalve surgery PLANNED PROCEDURE: Operation Date: 11/06/20 07:00 Proposed Procedures p Left Cardiac Catheterization 75149 I35.0(Left) - Tarah Lane MD PATIENT REASSESSED PRIOR TO SEDATION, WITH NO CHANGE NOTED: Yes PHYSICAL EXAM: alert, oriented x 3 and clear to auscultation bilaterally AIRWAY EVAL/ANESTHESIA PLAN: ASA II and Risks, benefits & alternatives of sedation and/or procedure discussed ADDITIONAL INFORMATION: I have explained all risk benefit and alternative for the procedure. Patient understand the risk of 5% mortality in terms of stroke major minor bleed, urgent emergent bypass and valvular surgery. Patient understand the risk of hematoma infection bruising which is 6 to 10%. He would like to proceed with it.
--- NOTE | 2020-11-06 10:22 | PC.NURSE ---
recovery pt received from clinical laboratory aides teacher post diagnostic only angiogram. pt drowsy but able to arouse and follow direction. tr band in place on right wrist with no bruising or edema noticed. pt complains of no pain. pt placed on monitor and will take vitals per protocol. pt given restrictions of right wrist and will continue to re-educate throughout recovery.
--- NOTE | 2020-11-06 11:56 | PC.NURSE ---
tr band removal no issues with removal of tr band. education again for restrictions of right wrist to the patient.
== END 2020-11-06 12:25 | disposition home or self-care (01) ==
PROVIDERS: PCP Clinical Nurse Specialist Adult Health; Visit Provider Internal Medicine Cardiovascular Disease
DX: I35.0 Nonrheumatic aortic (valve) stenosis (principal); I25.10 Atherosclerotic heart disease of native coronary artery without angina pectoris; I25.82 Chronic total occlusion of coronary artery; Z95.5 Presence of coronary angioplasty implant and graft; I11.0 Hypertensive heart disease with heart failure; I50.9 Heart failure, unspecified; K21.9 Gastro-esophageal reflux disease without esophagitis; E78.5 Hyperlipidemia, unspecified; E03.9 Hypothyroidism, unspecified; Z85.828 Personal history of other malignant neoplasm of skin; Z85.46 Personal history of malignant neoplasm of prostate; Z82.49 Family history of ischemic heart disease and other diseases of the circulatory system
CPT/HCPCS: 36415; 93452; C1769; C1887; C1894; J1644; J2250; J3010; J3490; J7030; Q0163; Q9967

== ENCOUNTER → 2020-11-12 11:06 | Outpatient (BNVA) | payer MEDICARE, SELFPAY | PROVIDERS: PCP Clinical Nurse Specialist Adult Health; Visit Provider Nurse Practitioner Family | DX: I35.0 Nonrheumatic aortic (valve) stenosis (principal) | CPT/HCPCS: 80048 ==

== ENCOUNTER 2021-02-04 06:00 | Outpatient (RCR) | payer MEDICARE, SELFPAY | END 2021-02-19 23:59 | disposition home or self-care (01) | LOC: SPT 06:00 | PROVIDERS: PCP Clinical Nurse Specialist Adult Health; Referring Provider Specialist; Visit Provider Specialist | DX: R42 Dizziness and giddiness (principal) | CPT/HCPCS: 95992; 97162 ==

== ENCOUNTER → 2021-05-21 10:57 | Outpatient (BNVA) | payer MEDICARE, SELFPAY | PROVIDERS: PCP Clinical Nurse Specialist Adult Health; Visit Provider Internal Medicine Cardiovascular Disease | DX: I35.0 Nonrheumatic aortic (valve) stenosis (principal); I50.9 Heart failure, unspecified; I25.5 Ischemic cardiomyopathy; I47.2 Ventricular tachycardia; I11.0 Hypertensive heart disease with heart failure; I50.22 Chronic systolic (congestive) heart failure; I25.10 Atherosclerotic heart disease of native coronary artery without angina pectoris; Z98.890 Other specified postprocedural states; Z86.79 Personal history of other diseases of the circulatory system; Z95.2 Presence of prosthetic heart valve | CPT/HCPCS: 99214 ==

== ENCOUNTER 2021-05-28 14:39 | Outpatient (CLI) | payer MEDICARE, SELFPAY ==
[2021-05-28 18:03] LABS: Anion Gap 15.3 (5-19); Blood Urea Nitrogen 17 mg/dL (8-23); Calcium 9.3 mg/dL (8.5-10.5); Carbon Dioxide 27 mmol/L (22-29); Chloride 101 mmol/L (98-107); Glucose 104 mg/dL (65-115); Magnesium 2.3 mg/dL (1.7-2.3); NT Pro B Type Natriuretic Pept 2257 pg/mL (0-450); Osmolality Calculated 290 mOsm/kg (285-295); Potassium 4.3 mmol/L (3.5-5.1); Sodium 139 mmol/L (136-145)
== END 2021-05-28 14:40 | disposition home or self-care (01) ==
PROVIDERS: PCP Clinical Nurse Specialist Adult Health; Referring Provider Internal Medicine Cardiovascular Disease; Visit Provider Clinical Nurse Specialist Adult Health
DX: I25.5 Ischemic cardiomyopathy (principal); I50.9 Heart failure, unspecified; I35.0 Nonrheumatic aortic (valve) stenosis
CPT/HCPCS: 80048; 83735; 83880

== ENCOUNTER 2021-06-10 09:40 | Outpatient (RCR) | payer MEDICARE, SELFPAY | END 2021-06-20 23:59 | disposition home or self-care (01) | LOC: CR 09:40 | PROVIDERS: PCP Clinical Nurse Specialist Adult Health; Referring Provider Internal Medicine Cardiovascular Disease; Visit Provider Internal Medicine Cardiovascular Disease | DX: Z95.2 Presence of prosthetic heart valve (principal) | CPT/HCPCS: 93798 ==

== ENCOUNTER 2021-06-21 10:00 | Outpatient (RCR) | payer MEDICARE, SELFPAY ==
[2021-06-21 13:05] LABS: Alanine Aminotransferase 10 U/L (0-41); Alkaline Phosphatase 143 IU/L (40-130); Anion Gap 12.5 (5-19); Aspartate Amino Transferase 15 U/L (0-40); Blood Urea Nitrogen 15 mg/dL (8-23); Calcium 9.2 mg/dL (8.5-10.5); Carbon Dioxide 27 mmol/L (22-29); Chloride 101 mmol/L (98-107); Globulin 2.5 g/dL (1.3-4.6); Glucose 104 mg/dL (65-115); Magnesium 2.1 mg/dL (1.7-2.3); NT Pro B Type Natriuretic Pept 3471 pg/mL (0-450); Osmolality Calculated 283 mOsm/kg (285-295); Potassium 4.5 mmol/L (3.5-5.1); Sodium 136 mmol/L (136-145); Thyroid Stimulating Hormone 0.89 uIU/mL (0.27-4.20); Total Bilirubin 0.3 mg/dL (0.15-1.2); Total Protein 6.5 g/dL (6.6-8.7)
== END 2021-07-20 23:59 | disposition home or self-care (01) ==
LOC: CR 10:00
PROVIDERS: PCP Clinical Nurse Specialist Adult Health; Referring Provider Internal Medicine Cardiovascular Disease; Visit Provider Internal Medicine Cardiovascular Disease
DX: Z95.2 Presence of prosthetic heart valve (principal); I44.30 Unspecified atrioventricular block; I50.22 Chronic systolic (congestive) heart failure; R00.1 Bradycardia, unspecified; R55 Syncope and collapse; I10 Essential (primary) hypertension
CPT/HCPCS: 36415; 80053; 83735; 83880; 84443; 93798; 99214

== ENCOUNTER → 2021-06-24 12:25 | Outpatient (BNVA) | payer MEDICARE, SELFPAY | PROVIDERS: PCP Clinical Nurse Specialist Adult Health; Referring Provider Specialist; Visit Provider Specialist | DX: H81.10 Benign paroxysmal vertigo, unspecified ear (principal); G62.9 Polyneuropathy, unspecified; R55 Syncope and collapse | CPT/HCPCS: 99204 ==

== ENCOUNTER 2021-06-26 13:39 | Outpatient (CLI) | payer MEDICARE, SELFPAY ==
[2021-06-26 14:25] LABS: Erythrocyte Sedimentation Rate 14 mm/hr (0-10)
[2021-06-26 15:00] LABS: Thyroid Stimulating Hormone 0.77 uIU/mL (0.27-4.20)
[2021-06-26 15:03] LABS: Folate Level > 20.0 ng/mL (4.5-32.2)
[2021-06-26 20:24] LABS: Vitamin B12 > 2000 pg/mL (232-1245)
[2021-07-09 17:27] LABS: Methylmalonic Acid 351 nmol/L (87-318)
== END 2021-06-26 13:40 | disposition home or self-care (01) ==
PROVIDERS: PCP Clinical Nurse Specialist Adult Health; Visit Provider Specialist
DX: R42 Dizziness and giddiness (principal); R55 Syncope and collapse
CPT/HCPCS: 82607; 82746; 83921; 84443; 85651; 86140; 86334; 86431

== ENCOUNTER 2021-06-27 07:25 | Outpatient (CLI) | payer MEDICARE, SELFPAY ==
--- NOTE | 2021-06-27 07:25 | USCV_ITS ---
RajeshbeRoland Age: 85 Gender: M : 1935 Exam Date: 06/27/2021 07:38 Ordering Phys: Mainor Gan Technologist: Exam Location: [facility] – [place] Indication: had ao stent placed Aortic Velocity @ SMA (cm/s) 110 RIGHT KIDNEY LEFT KIDNEY Velocity (cm/s) Velocity (cm/s) Sys/Schmidt Sys/Schmidt Resistive Index Resistive Index 72.7 / 18.4 0.75 Proximal Renal Artery 68.5 / 42.4 0.39 85.3 / 20.1 0.76 Mid Renal Artery 75.7 / 21.0 0.72 72.7 / 20.1 0.72 Distal Renal Artery 48.3 / 10.5 0.78 41.4 / 7.6 0.82 Hilar 60.6 / 17.2 0.72 43.9 / 6.1 0.86 Upper Pole 75.1 / 22.6 0.70 40.0 / 8.6 0.78 Mid Pole 46.3 / 11.4 0.75 43.6 / 11.2 0.74 Lower Pole 44.4 / 13.8 0.69 0.80 Renal Aortic Ratio 0.69 Accleration Index (cm/sec2) 543.00 Hilar 1727.0 0 927.00 Upper Pole 460.00 424.00 Mid Pole 716.00 661.00 Lower Pole 545.00 90.3 Kidney Length (mm) 93.0 FINDINGS Comparison: none Low normal size kidneys, 2.0 cm cyst right kidney. Poorly seen aorta. There is no evidence of hemodynamically significant right renal artery stenosis. There is no evidence of hemodynamically significant left renal artery stenosis. CONCLUSIONS No sonographic evidence of hemodynamically significant renal artery stenosis bilaterally. Dr. Zofia Fleming DO (Electronically Signed) Final Date: 27 June 2021 09:07 S
== END 2021-06-27 07:26 | disposition home or self-care (01) ==
PROVIDERS: PCP Clinical Nurse Specialist Adult Health; Visit Provider Clinical Nurse Specialist Adult Health
DX: N18.2 Chronic kidney disease, stage 2 (mild) (principal)
CPT/HCPCS: 93975

== ENCOUNTER → 2021-06-28 10:34 | Outpatient (BNVA) | payer MEDICARE, SELFPAY | PROVIDERS: PCP Clinical Nurse Specialist Adult Health; Visit Provider Internal Medicine Cardiovascular Disease | DX: Z95.810 Presence of automatic (implantable) cardiac defibrillator (principal) | CPT/HCPCS: 93282 ==

== ENCOUNTER 2021-07-17 14:24 | Outpatient (CLI) | payer MEDICARE, SELFPAY ==
--- NOTE | 2021-07-17 14:37 | XR_ITS ---
WS: [id number] Chest 2 views, Clinical Data: COUGH Comparison: Portable chest, 07/23/2019. Findings: No nodules, masses or effusions are seen. The heart is enlarged. The pulmonary vascularity is not increased. No pneumonia or pneumothorax is seen. There is chronic basilar interstitial change. There is an artificial valve in the heart. There is a single lead pacemaker with the generator overl apping the left chest. The aortic arch and descending thoracic aorta show tortuosity. There is an aor tic stent graft. XR/XR chest 2V* [id number] Impression: 1. Atherosclerosis and artificial cardiac valve. 2. Chronic bibasilar interstitial thickening. 3. Cardiomegaly and cardiac pacemaker.
== END 2021-07-17 14:25 | disposition home or self-care (01) ==
PROVIDERS: Visit Provider Clinical Nurse Specialist Adult Health
DX: R05.9 Cough, unspecified (principal); I51.7 Cardiomegaly; Z95.0 Presence of cardiac pacemaker
CPT/HCPCS: 71046

== ENCOUNTER 2021-07-22 09:30 | Outpatient (RCR) | payer MEDICARE, SELFPAY | END 2021-08-20 23:59 | disposition home or self-care (01) | LOC: CR 09:30 | PROVIDERS: Referring Provider Internal Medicine Cardiovascular Disease; Visit Provider Internal Medicine Cardiovascular Disease | DX: I44.30 Unspecified atrioventricular block (principal); I50.22 Chronic systolic (congestive) heart failure; R00.1 Bradycardia, unspecified; R55 Syncope and collapse | CPT/HCPCS: 93798 ==

== ENCOUNTER → 2021-07-22 13:16 | Outpatient (BNVA) | payer MEDICARE, SELFPAY | PROVIDERS: Visit Provider Nurse Practitioner Family | DX: I11.0 Hypertensive heart disease with heart failure (principal); I50.22 Chronic systolic (congestive) heart failure; I25.5 Ischemic cardiomyopathy; I44.30 Unspecified atrioventricular block; R00.1 Bradycardia, unspecified; R55 Syncope and collapse | CPT/HCPCS: 99214 ==

== ENCOUNTER 2021-08-15 14:01 | Outpatient (CLI) | payer MEDICARE, SELFPAY ==
--- NOTE | 2021-08-15 14:11 | MM_ITS ---
WS: [id number] BILATERAL 3D TOMOSYNTHESIS DIGITAL DIAGNOSTIC MAMMOGRAPHY WITH CAD CLINICAL INFORMATION: mass/pain COMPARISON: None. TECHNIQUE: Bilateral CC, MLO, and ML views. FINDINGS: Scattered fibroglandular densities bilaterally. Palpable marker overlying the LEFT areola. Underlying subareolar parenchymal tissue is slightly more prominent compared to the LEFT. Ultrasound is pending . ULTRASOUND BREAST LEFT TECHNIQUE: Ultrasound left breast focused area of concern. CLINICAL INFORMATION: mass/pain FINDINGS: Ultrasound subareolar region both breasts. Dense underlying parenchymal tissue in the subareolar tavon ons LEFT greater than RIGHT. Findings compatible with benign gynecomastia. No cystic or solid lesions to target for biopsy. No other suspicious findings. MM/[place] [id number] IMPRESSION: BI-RADS: 2-Benign FOLLOW UP: See Report
--- NOTE | 2021-08-15 14:33 | US_ITS ---
WS: [id number] BILATERAL 3D TOMOSYNTHESIS DIGITAL DIAGNOSTIC MAMMOGRAPHY WITH CAD CLINICAL INFORMATION: mass/pain COMPARISON: None. TECHNIQUE: Bilateral CC, MLO, and ML views. FINDINGS: Scattered fibroglandular densities bilaterally. Palpable marker overlying the LEFT areola. Underlying subareolar parenchymal tissue is slightly more prominent compared to the LEFT. Ultrasound is pending . ULTRASOUND BREAST LEFT TECHNIQUE: Ultrasound left breast focused area of concern. CLINICAL INFORMATION: mass/pain FINDINGS: Ultrasound subareolar region both breasts. Dense underlying parenchymal tissue in the subareolar tavon ons LEFT greater than RIGHT. Findings compatible with benign gynecomastia. No cystic or solid lesions to target for biopsy. No other suspicious findings. US/US breast LT limited* [id number] IMPRESSION: BI-RADS: 2-Benign FOLLOW UP: See Report
== END 2021-08-15 14:02 | disposition home or self-care (01) ==
LOC: RAD 14:06
PROVIDERS: Visit Provider Dermatology
DX: N64.4 Mastodynia (principal); N63.42 Unspecified lump in left breast, subareolar; N63.41 Unspecified lump in right breast, subareolar
CPT/HCPCS: 76642; 77062

== ENCOUNTER 2021-08-21 13:47 | Outpatient (RCR) | payer MEDICARE, SELFPAY | END 2021-09-19 23:59 | disposition home or self-care (01) | LOC: CR 13:47 | PROVIDERS: Referring Provider Internal Medicine Cardiovascular Disease; Visit Provider Internal Medicine Cardiovascular Disease | DX: I44.30 Unspecified atrioventricular block (principal); I50.22 Chronic systolic (congestive) heart failure; R00.1 Bradycardia, unspecified; R55 Syncope and collapse | CPT/HCPCS: 93798 ==

== ENCOUNTER → 2021-09-12 16:22 | Outpatient (BNVA) | payer MEDICARE, SELFPAY | PROVIDERS: Visit Provider Clinical Nurse Specialist Adult Health | DX: I50.9 Heart failure, unspecified (principal); R23.8 Other skin changes | CPT/HCPCS: 85025; 85610 ==

== ENCOUNTER → 2021-10-18 11:44 | Outpatient (BNVA) | payer MEDICARE, SELFPAY | PROVIDERS: PCP Clinical Nurse Specialist Adult Health; Visit Provider Clinical Nurse Specialist Adult Health | DX: Z79.899 Other long term (current) drug therapy (principal) | CPT/HCPCS: 80048; 83880 ==

== ENCOUNTER → 2021-10-21 10:29 | Outpatient (BNVA) | payer MEDICARE, SELFPAY | PROVIDERS: PCP Clinical Nurse Specialist Adult Health; Visit Provider Internal Medicine Cardiovascular Disease | DX: I11.0 Hypertensive heart disease with heart failure (principal); I50.22 Chronic systolic (congestive) heart failure; I25.10 Atherosclerotic heart disease of native coronary artery without angina pectoris; Z95.2 Presence of prosthetic heart valve; I47.2 Ventricular tachycardia; I25.5 Ischemic cardiomyopathy; I27.20 Pulmonary hypertension, unspecified | CPT/HCPCS: 99214 ==

== ENCOUNTER 2021-10-28 14:29 | Outpatient (CLI) | payer MEDICARE, SELFPAY ==
[2021-10-28 15:25] LABS: Alanine Aminotransferase 9 U/L (0-41); Albumin Level 4.3 g/dL (3.5-5.2); Alkaline Phosphatase 134 IU/L (40-130); Anion Gap 13.7 (5-19); Aspartate Amino Transferase 10 U/L (0-40); Blood Urea Nitrogen 34 mg/dL (8-23); Calcium 9.1 mg/dL (8.5-10.5); Carbon Dioxide 31 mmol/L (22-29); Chloride 96 mmol/L (98-107); Globulin 2.5 g/dL (1.3-4.6); Glucose 111 mg/dL (65-115); Magnesium 2.7 mg/dL (1.7-2.3); NT Pro B Type Natriuretic Pept 10513 pg/mL (0-450); Osmolality Calculated 292 mOsm/kg (285-295); Potassium 3.7 mmol/L (3.5-5.1); Sodium 137 mmol/L (136-145); Thyroid Stimulating Hormone 0.73 uIU/mL (0.27-4.20); Total Bilirubin 0.6 mg/dL (0.15-1.2); Total Protein 6.8 g/dL (6.6-8.7)
== END 2021-10-28 14:30 | disposition home or self-care (01) ==
LOC: LAB 14:33
PROVIDERS: PCP Clinical Nurse Specialist Adult Health; Visit Provider Internal Medicine Cardiovascular Disease
DX: I10 Essential (primary) hypertension (principal); I25.10 Atherosclerotic heart disease of native coronary artery without angina pectoris; I25.5 Ischemic cardiomyopathy; I27.20 Pulmonary hypertension, unspecified
CPT/HCPCS: 36415; 80053; 83735; 83880; 84443

== ENCOUNTER 2021-10-30 01:36 | Emergency (ER) | payer MEDICARE, SELFPAY ==
[2021-10-30] VITALS (63 sets, daily range): BP systolic 120–195; BP diastolic 59–100; PULSE 66–85; RESP 16–33; TEMP 36.7–36.9; O2SAT 91–100; BMI 28.5
--- NOTE | 2021-10-30 02:47 | ED_ITS ---
Documented by User: Anson Esparza MD 11/13/21 00:27 HPI - Nausea/Vomiting/Diarrhea General: Chief complaint: Nausea/Vomiting/Diarrhea Stated complaint: throwing up blood Time Seen by Provider: 10/30/21 01:43 History of Present Illness: Mr. Diaz is an 86-year-old gentleman on aspirin and Plavix who presents to the emergency department due to hematemesis. He reports approximately 1 month history of decreased appetite and increased abdominal discomfort. He has had issues with constipation and has required multiple doses of [id number] medications for his constipation. He had bowel movements earlier today and went to bed. Subsequently he woke up with a feeling of having to go the bathroom again and had hematemesis x1. He reports it was dark red. He has noticed dark stools though he thought that this was just associated with the medication. Has mild abdominal discomfort which has not changed significantly. No other specific changes in health, exacerbating, or alleviating factors identified. Patient does report a remote history of EGD/colonoscopy though nothing recent, he does have history of ulcer though has not had one for many years. Onset (ago): minute(s) Description of vomiting: bloody Associated nausea: Yes Associated abdominal pain: Yes Location of pain: Diffuse Severity: mild Associated symtoms: Reports nausea Review of Systems General: Reports: 10 or more systems reviewed and unremarkable except in HPI and below GI: Reports: nausea PFSH ED PFSH: Medical History Abdominal aortic aneurysm (AAA) 4.3?4.3 approximately 5.04?5.04 distally Aortic stenosis ASHD (arteriosclerotic heart disease) CHF (congestive heart failure) iscHemic cardiomyopathy with preserved ejection fraction Cognitive dysfunction Elevated PSA Essential hypertension GERD (gastroesophageal reflux disease) History of nonmelanoma skin cancer Hyperlipidemia Hypothyroidism Ischemic cardiomyopathy EF 58%, grade 1/4 diastolic dysfunction, moderate aortic valve calcification, LVH (left ventricular hypertrophy) Prostate cancer Prostatic hypertrophy Pulmonary HTN SOB (shortness of breath) SVT (supraventricular tachycardia) TIA (transient ischemic attack) Ventricular tachycardia Status post AICD placement Surgical History S/P angioplasty with stent Coronary disease status post 3 stents S/P implantation of automatic cardioverter/defibrillator (AICD) [employer] SINGLE CHAMBER 08/07 S/P TAVR (transcatheter aortic valve replacement) Status post endovascular aneurysm repair (EVAR) Family History Father CAD (coronary artery disease) Mother CAD (coronary artery disease) CHF (congestive heart failure) Brother Parkinson disease Sister Fibromyalgia Other Cancer Social History Smoking and tobacco status: never smoked Alcohol intake: never Lives independently: Yes Marital status: / service: No Current occupational status: retired History of recent travel: No Current gender identity: Male Gillian/Hoahaoism: Restorationist Physical Exam Const: COMMON NORMALS: alert GENERAL APPEARANCE: cooperative, well developed and ill appearing (somewhat) HENMT: COMMON NORMALS: normocephalic and atraumatic HEAD & SCALP: normocephalic and atraumatic THROAT: posterior oropharynx normal Eye: COMMON NORMALS: conjunctivae normal CONJUNCTIVA: Yes conjunctivae norm al SCLERA: sclerae normal Neck/C-Spine: COMMON NORMALS: supple GENERAL: Yes trachea midline Resp: COMMON NORMALS: normal respiratory effort EFFORT & INSPECTION: Yes able to speak in complete sentences Cardio: COMMON NORMALS: regular rate and regular rhythm RATE: regular rate RHYTHM: regular rhythm GI: COMMON NORMALS: Soft to palpation PALPATION: Yes Soft to palpation, Yes Tenderness to palpation present (GI), No Guarding due to palpation present (GI) and No Rigid due to palpation RECTAL EXAM: Yes heme positive stool 2+ Extremity: GENERAL: Yes normal exam except as noted and No edema Neuro: COMMON NORMALS: moves all extremities SENSORIUM/ORIENTATION: Yes alert and No Orientation impaired Psych: COMMON NORMALS: mental status grossly normal and Normal thought process present THOUGHT PROCESS: Normal thought process present Course ED course: - Patient was seen and evaluated by me at bedside - Patient placed on cardiac monitors, IV access obtained - Initial evaluation notable for exam as above, somewhat ill-appearing though vitally satisfactory. - Labs personally interpreted by me -Protonix, antiemetic, fluids given. - Labs notable for hemoglobin 8.3 which is lower than prior. Elevated creatinine and BUN on metabolic panel. - Given no current recurrence of hematemesis will plan to trend hemoglobin -Handed off pending completion of ED evaluation including imaging. Vital Signs: Vital signs: Vital Signs Temperature 98.0 F 10/30/21 12:31 Pulse Rate 84 11/02/21 08:43 Respiratory Rate 18 11/02/21 08:43 Blood Pressure 163/86 11/02/21 08:43 Pulse Oximetry 94 11/02/21 08:43 Oxygen Delivery Me thod 11/02/21 05:59 Oxygen Flow Rate 2 11/02/21 05:59 MDM - Nausea/Vomiting/Diarrhea Medical Decision Making 86-year-old gentleman with hematemesis. Patient is on antiplatelet agent. He has had abdominal symptoms for approximately 6 weeks. Initial vitally satisfactory. Handed off to morning ED physician Dr. Valdovinos pending completion of ED evaluation including imaging reads. Patient on antiplatelet medications, history of aortic aneurysm with endograft, history of aortic valve replacement, history of AICD presented with hematemesis which continued in the emergency department. He remained clinically and hemodynamically stable but had a drop in his hemoglobin. He was transfused in the emergency department as well as given proton pump inhibitors and high-dose. Because of his significant comorbidities and the lack of significant blood products it was felt that he was best served by transferring to a higher level of care. Medical Records I reviewed the patient's medical records. Lab Data I reviewed the patient's lab results. : 11/02/21 05:20 11/02/21 05:20 Radiology Impressions Chest/Abdomen/Pelvis CT 10/30/21 03:52 IMPRESSION: 1. Cardiomegaly, mild interstitial pulmonary edema and minimal posterior pleural effusions. 2. Chronic bibasilar atelectasis or scarring. 3. Atherosclerotic vascular disease including coronary artery disease. 4. Previous TAVR. IMPRESSION: 1. Mild hyperdensity along the gastric wall lesser curvature mucosal surface suspicious for mild active upper GI bleeding. 2. Extensive diffuse colonic diverticulosis without CT evidence of diverticulitis. 3. Infrarenal distal abdominal aortic aneurysm with previous aortoiliac stent graft repair. 4. Enhancing channel within the abdominal aortic aneurysm sac consistent with endoleak with mildly enlarged distal aortic aneurysm sac measuring 6.5 cm in diameter, previously 5.5 cm. 5. Cholelithiasis with very tiny punctate calculus demonstrated within small contracted gallbladder. 6. Redemonstrated central mesenteric dense clustered calcifications versus calcified conglomerate lymph nodes. Differential diagnosis includes sclerosing mesenteritis versus mesenteric carcinoid versus lymphoma. 7. 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 THIS REPORT CONTAINS FINDINGS THAT MAY BE CRITICAL TO PATIENT CARE. The findings were verbally communicated via telephone conference with Dr. Valdovinos at 7:36 AM CDT on 10/30/2021. The findings were acknowledged and understood. Chest X-Ray 10/31/21 01:14 IMPRESSION: No focal pulmonary consolidation identified. Laboratory Results WBC 6.3 10^3/uL (4.0-10.0) 11/02/21 05:20 Corrected WBC Cancelled 11/01/21 15:14 RBC 2.54 10^6/uL (4.1-5.3) L 11/02/21 05:20 Hgb 7.5 g/dL (11.7-16.6) L 11/02/21 05:20 Hct 24.2 % (42.0-52.0) L 11/02/21 05:20 MCV 95.3 fl (80-94) H 11/02/21 05:20 MCH 29.5 pg (28.0-34.0) 11/02/21 05:20 MCHC 31.0 g/dL (30.0-36.0) 11/02/21 05:20 RDW 15.9 % (12.1-15.1) H 11/02/21 05:20 Plt Count 130 10^3/cmm (130-400) 11/02/21 05:20 MPV 8.8 fL (7.4-10.4) 11/02/21 05:20 Gran % Cancelled 11/01/21 15:14 Neut % (Auto) 73.3 % 11/02/21 05:20 Lymph % (Auto) 5.5 % 11/02/21 05:20 Gentry % (Auto) 14.7 % 11/02/21 05:20 Eos % (Auto) 5.2 % 11/02/21 05:20 Baso % (Auto) 1.1 % 11/02/21 05:20 Neut # (Auto) 4.65 10^3/uL (1.8-7.7) 11/02/21 05:20 Lymph # (Auto) 0.4 10^3/uL (0.8-4.8) L 11/02/21 05:20 Gentry # (Auto) 0.9 10^3/uL (0.2-0.9) 11/02/21 05:20 Eos # (Auto) 0.3 10^3/uL (0.0-0.8) 11/02/21 05:20 Baso # (Auto) 0.1 10^3/uL (0.0-0.1) 11/02/21 05:20 Absolute Gran (auto) Cancelled 11/01/21 15:14 Nucleated RBC % (auto) 0 % 11/02/21 05:20 Nucleated RBCs # 0.0 /100WBC 11/02/21 05:20 PT 14.80 SECONDS (12.1-14.9) 10/30/21 03:01 INR 1.12 (0.8-1.2) 10/30/21 03:01 APTT 27.0 SECONDS (23.9-36.7) 11/02/21 05:20 Sodium 138 mmol/L (136-145) 11/02/21 05:20 Potassium 3.5 mmol/L (3.5-5.1) 11/02/21 05:20 Chloride 101 mmol/L (98-107) 11/02/21 05:20 Carbon Dioxide 27 mmol/L (22-29) 11/02/21 05:20 Anion Gap 13.5 (5-19) 11/02/21 05:20 BUN 24 mg/dL (8-23) H 11/02/21 05:20 Creatinine 1.6 mg/dL (0.7-1.2) H 11/02/21 05:20 GFR Calculation Not Reportable 11/02/21 05:20 Glucose 109 mg/dL (65-115) 11/02/21 05:20 Calculated Osmolality 291 mOsm/kg (285-295) 11/02/21 05:20 Lactic Acid 1.1 mmol/L (0.5-2.2) 11/01/21 03:25 Calcium 8.3 mg/dL (8.5-10.5) L 11/02/21 05:20 Phosphorus 3.4 mg/dL (2.5-4.5) 11/02/21 05:20 Magnesium 2.4 mg/dL (1.7-2.3) H 11/02/21 05:20 Total Bilirubin 0.7 mg/dL (0.15-1.2) 11/02/21 05:20 AST 19 U/L (0-40) 11/02/21 05:20 ALT 9 U/L (0-41) 11/02/21 05:20 Alkaline Phosphatase 100 IU/L (40-130) 11/02/21 05:20 NT-Pro-B Natriuret Pep 91839 pg/mL (0-450) H 11/01/21 03:25 Total Protein 5.6 g/dL (6.6-8.7) L 11/02/21 05:20 Albumin 3.4 g/dL (3.5-5.2) L 11/02/21 05:20 Globulin 2.2 g/dL (1.3-4.6) 11/02/21 05:20 Lipase 20 U/L (13-60) 10/30/21 03:01 TSH 0.93 uIU/mL (0.27-4.20) 10/31/21 05:24 SARS-CoV-2 Ag (Rapid) Negative (Negative) 10/30/21 14:39 Blood Type A Positive 10/30/21 07:53 Rho(D) Type Positive 10/30/21 07:53 Antibody Screen Negative 10/30/21 07:53 Crossmatch See Detail 10/30/21 07:53 Critical Care Time Critical Care Time: Critical Care Time: Yes Total Critical Care Time: 45 Attestation: Due to a high probability of clinically significant, possibly life threatening deterioration, the patient required my highest level of attention and preparedness to intervene emergently and I personally spent this critical care time directly and personally managing the patient. This critical care time included obtaining a history; examining the patient; pulse oximetry; ordering and review of laboratory and imaging studies; arranging urgent treatment with development of a management plan; evaluation of patient's response to treatment; frequent reassessment; and, discussions with other providers as applicable. It was exclusive of separately billable procedures. Primary system involved is GI/vascular Discharge Plan Discharge Patient Disposition: Xfer Short-Term Hosp Clinical Impression: GI bleed, Anemia, Creatinine elevation, Abdominal aortic aneurysm (AAA) Condition: Stable Referrals: Mainor Gan NP [Primary Care Provider] - Sign Out Sign Out Data: Patient Sign Out occurred on 10/30/21 at 17:21. Patient's care was discussed, and care was transferred from to Jenn Adler MD. Coding Level of Care Code ED Kieselguhr Regenerator Operator for Chg Fwd Documented by User: Arias Valdovinos DO 10/31/21 19:21 HPI - Nausea/Vomiting/Diarrhea General: Chief complaint: Nausea/Vomiting/Diarrhea Stated complaint: throwing up blood Time Seen by Provider: 10/30/21 01:43 [facility] ED PFSH: Medical History Abdominal aortic aneurysm (AAA) 4.3?4.3 approximately 5.04?5.04 distally Aortic stenosis ASHD (arteriosclerotic heart disease) CHF (congestive heart failure) iscHemic cardiomyopathy with preserved ejection fraction Cognitive dysfunction Elevated PSA Essential hypertension GERD (gastroesophageal reflux disease) History of nonmelanoma skin cancer Hyperlipidemia Hypothyroidism Ischemic cardiomyopathy EF 58%, grade 1/4 diastolic dysfunction, moderate aortic valve calcification, LVH (left ventricular hypertrophy) Prostate cancer Prostatic hypertrophy Pulmonary HTN SOB (shortness of breath) SVT (supraventricular tachycardia) TIA (transient ischemic attack) Ventricular tachycardia Status post AICD placement Surgical History S/P angioplasty with stent Coronary disease status post 3 stents S/P implantation of automatic cardioverter/defibrillator (AICD) [employer] SINGLE CHAMBER 08/07 S/P TAVR (transcatheter aortic valve replacement) Status post endovascular aneurysm repair (EVAR) Family History Father CAD (coronary artery disease) Mother CAD (coronary artery disease) CHF (congestive heart failure) Brother Parkinson disease Sister Fibromyalgia Other Cancer Social History Smoking and tobacco status: never smoked Alcohol intake: never Lives independently: Yes Marital status: / service: No Current occupational status: retired History of recent travel: No Current gender identity: Male Gillian/Hoahaoism: Restorationist Course Reevaluation(s): Reevaluation #1: I assumed care of this patient from Dr. Esparza at change of shift pending CT scan results and additional evaluation. This patient presented to our emergency department with a history of hematemesis. He states the symptoms began last evening late or early this morning. He states he had bright red blood in his emesis. States he has had a history of ulcers for many years and is taken H2 blockers and most recently a proton pump inhibitor. He has not had any melanotic stools or dark stools that he is aware of in the last few days. He is on Plavix as well as aspirin. He has had a valve replacement, and aneurysmal stenting for an abdominal aorta as well as an AICD placed. He has no known coronary artery disease history according to the patient. Received CT scan verbal report which showed evidence to suggest active GI bleeding. He does have a abdominal aortic graft in place as well. The patient has had active hematemesis with right red blood per rectum just short bit of ago. Is received proton pump inhibitor. We will go ahead and plan transfusing 1 unit of packed red cells given his current hemoglobin to stay ahead of his blood loss. Will discuss with the hospital team regarding appropriate disposition. He is currently clinically stable. Time: 08:00 Reevaluation #2: We are awaiting potential transfer of this patient which was recommended by hospital staff. Due to his comorbidities in addition to the possible need for interventional radiology. He is receiving blood transfusion at this time. Time: 09:15 Reevaluation #3: Patient will be receiving a second unit of packed red cells. He is currently hemodynamically stable. Awaiting a bed assignment at [facility] Time: 11:13 Consultations: Consultation #1: Discussed with gastroenterology. Reviewed his current clinical picture as well as his comorbidities. The recommendations were because of the lack of interven tional radiology support as well as his comorbidities as well as a lack of blood products in our facility specifically platelets this patient would likely be better served by transferring to a higher level of care. Time: 08:13 Consultation #2: I discussed with Dr. Ye at [facility] in [place]. We revi ewed the patient's current findings and case. She agrees to accept the patient in transfer. Time: 11:13 Vital Signs: Vital signs: Vital Signs Temperature 98.0 F 10/30/21 12:31 Pulse Rate 84 11/02/21 08:43 Respiratory Rate 18 11/02/21 08:43 Blood Pressure 163/86 11/02/21 08:43 Pulse Oximetry 94 11/02/21 08:43 Oxygen Delivery Me thod 11/02/21 05:59 Oxygen Flow Rate 2 11/02/21 05:59 MDM - Nausea/Vomiting/Diarrhea Medical Decision Making Patient on antiplatelet medications, history of aortic aneurysm with endograft, history of aortic valve replacement, history of AICD presented with hematemesis which continued in the emergency department. He remained clinically and hemodynamically stable but had a drop in his hemoglobin. He was transfused in the emergency department as well as given proton pump inhibitors and high-dose. Because of his significant comorbidities and the lack of significant blood products it was felt that he was best served by transferring to a higher level of care. Lab Data : 11/02/21 05:20 11/02/21 05:20 Radiology Impressions Chest/Abdomen/Pelvis CT 10/30/21 03:52 IMPRESSION: 1. Cardiomegaly, mild interstitial pulmonary edema and minimal posterior pleural effusions. 2. Chronic bibasilar atelectasis or scarring. 3. Atherosclerotic vascular disease including coronary artery disease. 4. Previous TAVR. IMPRESSION: 1. Mild hyperdensity along the gastric wall lesser curvature mucosal surface suspicious for mild active upper GI bleeding. 2. Extensive diffuse colonic diverticulosis without CT evidence of diverticulitis. 3. Infrarenal distal abdominal aortic aneurysm with previous aortoiliac stent graft repair. 4. Enhancing channel within the abdominal aortic aneurysm sac consistent with endoleak with mildly enlarged distal aortic aneurysm sac measuring 6.5 cm in diameter, previously 5.5 cm. 5. Cholelithiasis with very tiny punctate calculus demonstrated within small contracted gallbladder. 6. Redemonstrated central mesenteric dense clustered calcifications versus calcified conglomerate lymph nodes. Differential diagnosis includes sclerosing mesenteritis versus mesenteric carcinoid versus lymphoma. 7. 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 THIS REPORT CONTAINS FINDINGS THAT MAY BE CRITICAL TO PATIENT CARE. The findings were verbally communicated via telephone conference with Dr. Valdovinos at 7:36 AM CDT on 10/30/2021. The findings were acknowledged and understood. Chest X-Ray 10/31/21 01:14 IMPRESSION: No focal pulmonary consolidation identified. Laboratory Results WBC 6.3 10^3/uL (4.0-10.0) 11/02/21 05:20 Corrected WBC Cancelled 11/01/21 15:14 RBC 2.54 10^6/uL (4.1-5.3) L 11/02/21 05:20 Hgb 7.5 g/dL (11.7-16.6) L 11/02/21 05:20 Hct 24.2 % (42.0-52.0) L 11/02/21 05:20 MCV 95.3 fl (80-94) H 11/02/21 05:20 MCH 29.5 pg (28.0-34.0) 11/02/21 05:20 MCHC 31.0 g/dL (30.0-36.0) 11/02/21 05:20 RDW 15.9 % (12.1-15.1) H 11/02/21 05:20 Plt Count 130 10^3/cmm (130-400) 11/02/21 05:20 MPV 8.8 fL (7.4-10.4) 11/02/21 05:20 Gran % Cancelled 11/01/21 15:14 Neut % (Auto) 73.3 % 11/02/21 05:20 Lymph % (Auto) 5.5 % 11/02/21 05:20 Gentry % (Auto) 14.7 % 11/02/21 05:20 Eos % (Auto) 5.2 % 11/02/21 05:20 Baso % (Auto) 1.1 % 11/02/21 05:20 Neut # (Auto) 4.65 10^3/uL (1.8-7.7) 11/02/21 05:20 Lymph # (Auto) 0.4 10^3/uL (0.8-4.8) L 11/02/21 05:20 Gentry # (Auto) 0.9 10^3/uL (0.2-0.9) 11/02/21 05:20 Eos # (Auto) 0.3 10^3/uL (0.0-0.8) 11/02/21 05:20 Baso # (Auto) 0.1 10^3/uL (0.0-0.1) 11/02/21 05:20 Absolute Gran (auto) Cancelled 11/01/21 15:14 Nucleated RBC % (auto) 0 % 11/02/21 05:20 Nucleated RBCs # 0.0 /100WBC 11/02/21 05:20 PT 14.80 SECONDS (12.1-14.9) 10/30/21 03:01 INR 1.12 (0.8-1.2) 10/30/21 03:01 APTT 27.0 SECONDS (23.9-36.7) 11/02/21 05:20 Sodium 138 mmol/L (136-145) 11/02/21 05:20 Potassium 3.5 mmol/L (3.5-5.1) 11/02/21 05:20 Chloride 101 mmol/L (98-107) 11/02/21 05:20 Carbon Dioxide 27 mmol/L (22-29) 11/02/21 05:20 Anion Gap 13.5 (5-19) 11/02/21 05:20 BUN 24 mg/dL (8-23) H 11/02/21 05:20 Creatinine 1.6 mg/dL (0.7-1.2) H 11/02/21 05:20 GFR Calculation Not Reportable 11/02/21 05:20 Glucose 109 mg/dL (65-115) 11/02/21 05:20 Calculated Osmolality 291 mOsm/kg (285-295) 11/02/21 05:20 Lactic Acid 1.1 mmol/L (0.5-2.2) 11/01/21 03:25 Calcium 8.3 mg/dL (8.5-10.5) L 11/02/21 05:20 Phosphorus 3.4 mg/dL (2.5-4.5) 11/02/21 05:20 Magnesium 2.4 mg/dL (1.7-2.3) H 11/02/21 05:20 Total Bilirubin 0.7 mg/dL (0.15-1.2) 11/02/21 05:20 AST 19 U/L (0-40) 11/02/21 05:20 ALT 9 U/L (0-41) 11/02/21 05:20 Alkaline Phosphatase 100 IU/L (40-130) 11/02/21 05:20 NT-Pro-B Natriuret Pep 76329 pg/mL (0-450) H 11/01/21 03:25 Total Protein 5.6 g/dL (6.6-8.7) L 11/02/21 05:20 Albumin 3.4 g/dL (3.5-5.2) L 11/02/21 05:20 Globulin 2.2 g/dL (1.3-4.6) 11/02/21 05:20 Lipase 20 U/L (13-60) 10/30/21 03:01 TSH 0.93 uIU/mL (0.27-4.20) 10/31/21 05:24 SARS-CoV-2 Ag (Rapid) Negative (Negative) 10/30/21 14:39 Blood Type A Positive 10/30/21 07:53 Rho(D) Type Positive 10/30/21 07:53 Antibody Screen Negative 10/30/21 07:53 Crossmatch See Detail 10/30/21 07:53 Discharge Plan Discharge Patient Disposition: Xfer Short-Term Hosp Clinical Impression: GI bleed, Anemia, Creatinine elevation, Abdominal aortic aneurysm (AAA) Condition: Stable Referrals: Mainor Gan, AMORTIZATION SCHEDULE CLERK [Primary Care Provider] - Sign Out Sign Out Data: Patient Sign Out occurred on 10/30/21 at 17:21. Patient's care was discussed, and care was transferred from to Jenn Adler MD. Coding Level of Care Code ED Kieselguhr Regenerator Operator for g Kan
[2021-10-30 03:09] LABS: Basophils # 0.1 10^3/uL (0.0-0.1); Basophils % 0.8 %; Eosinophils # 0.2 10^3/uL (0.0-0.8); Eosinophils % 2.9 %; Hematocrit 26.3 % (42.0-52.0); Hemoglobin 8.3 g/dL (11.7-16.6); Lymphocytes # 0.5 10^3/uL (0.8-4.8); Lymphocytes % 5.5 %; Mean Corpuscular HGB Conc 31.6 g/dL (30.0-36.0); Mean Corpuscular Volume 94.9 fl (80-94); Mean Platelet Volume 9.6 fL (7.4-10.4); Monocytes # 0.9 10^3/uL (0.2-0.9); Monocytes % 10.2 %; Neutrophils % 80.4 %; Nucleated Red Blood Cells % 0 %; Platelet Count 204 10^3/cmm (130-400); Red Blood Count 2.77 10^6/uL (4.1-5.3); Red Cell Distribution Width 14.8 % (12.1-15.1); White Blood Count 8.3 10^3/uL (4.0-10.0)
[2021-10-30 03:35] LABS: Alanine Aminotransferase 9 U/L (0-41); Albumin Level 3.5 g/dL (3.5-5.2); Alkaline Phosphatase 123 IU/L (40-130); Anion Gap 15.8 (5-19); Aspartate Amino Transferase 13 U/L (0-40); Blood Urea Nitrogen 34 mg/dL (8-23); Calcium 8.8 mg/dL (8.5-10.5); Carbon Dioxide 28 mmol/L (22-29); Chloride 96 mmol/L (98-107); Globulin 2.7 g/dL (1.3-4.6); Glucose 124 mg/dL (65-115); Lipase 20 U/L (13-60); Osmolality Calculated 291 mOsm/kg (285-295); Potassium 3.8 mmol/L (3.5-5.1); Sodium 136 mmol/L (136-145); Total Bilirubin 0.8 mg/dL (0.15-1.2); Total Protein 6.2 g/dL (6.6-8.7)
--- NOTE | 2021-10-30 03:52 | CTR_ITS ---
PROCEDURE INFORMATION: Exam: CT Chest With Contrast; Diagnostic Exam date and time: 10/30/2021 5:06 AM Age: 86 years old Clinical indication: Vomiting; Prior surgery; Surgery type: Tavr. Evar. Coronary stents. Defibrillator. Patient HX: Onset of hematemesis this a.m. History of chf and prostate cancer. ; Additional info: Abd pain, hematemesis TECHNIQUE: Imaging protocol: Diagnostic computed tomography of the chest with contrast. Radiation optimization: All CT scans at this facility use at least one of these dose optimization techniques: automated exposure control; mA and/or kV adjustment per patient size (includes targeted exams where dose is matched to clinical indication); or iterative reconstruction. Contrast material: OMNI 350; Contrast volume: 80 ml; Contrast route: INTRAVENOUS (IV); COMPARISON: CT chest [facility] [id number] 07/02/2019 6:53 PM RADIATION DOSE METRICS: Total DLP (mGy-cm): 1314.18 FINDINGS: Tubes, catheters and devices: Left-sided pacemaker/AICD in place. Lungs: Mild interstitial pulmonary edema. Small calcified granulomas. Chronic bibasilar atelectasis or scarring. Pleural spaces: Minimal posterior pleural effusions. Heart: Heart size is enlarged. Previous transcatheter aortic valve repair appliance in place. Coronary artery calcifications. Calcified mitral annulus. Mediastinal space: Redemonstrated small circumscribed 2.8 cm fluid attenuation AP window mediastinal cyst. Lymph nodes: Small calcified mediastinal hilar lymph nodes. Vasculature: Atherosclerotic tortuosity and calcification of the thoracic aorta. No thoracic aortic aneurysm or dissection. Bones/joints: Thoracic kyphosis, spondylosis and degenerative bony changes. Soft tissues: Mild bilateral gynecomastia. PROCEDURE INFORMATION: Exam: CT Abdomen And Pelvis With Contrast Exam date and time: 10/30/2021 5:06 AM Age: 86 years old Clinical indication: Vomiting; Prior surgery; Surgery type: Tavr. Evar. Coronary stents. Defibrillator. Patient HX: Onset of hematemesis this a.m. History of chf and prostate cancer. ; Additional info: Abd pain, hematemesis TECHNIQUE: Imaging protocol: Computed tomography of the abdomen and pelvis with contrast. Radiation optimization: All CT scans at this facility use at least one of these dose optimization techniques: automated exposure control; mA and/or kV adjustment per patient size (includes targeted exams where dose is matched to clinical indication); or iterative reconstruction. Contrast material: OMNI 350; Contrast volume: 80 ml; Contrast route: INTRAVENOUS (IV); COMPARISON: 1. CT angio abd aorta runof [id number] 09/02/2019 5:[address] chest wo con [id number] 07/02/2019 6:53 PM RADIATION DOSE METRICS: Total DLP (mGy-cm): 1314.18 FINDINGS: Liver: No acute abnormality. No mass. Gallbladder and bile ducts: Cholelithiasis with very tiny punctate calculus demonstrated within small contracted gallbladder. No significant biliary ductal dilatation. Pancreas: Atrophic pancreas. Spleen: No acute abnormality. Adrenal glands: No acute abnormality. No mass. Kidneys and ureters: Redemonstrated incidental 2 cm anterior right renal simple cyst. No hydronephrosis or hydroureter. Stomach and bowel: Mild hyperdensity along the gastric wall lesser curvature mucosal surface suspicious for mild active upper GI bleeding. No significant or disproportionate large or small bowel distention. Extensive diffuse colonic diverticulosis without CT evidence of diverticulitis. Appendix: Grossly normal nondilated visualized appendix. Intraperitoneal space: No significant fluid collection. No free air. Vasculature: Infrarenal distal abdominal aortic aneurysm with previous aortoiliac stent graft repair. Enhancing channel within the abdominal aortic aneurysm sac consistent with endoleak with mildly enlarged distal aortic aneurysm sac measuring 6.5 cm in diameter, previously 5.5 cm. No evidence of aortic aneurysm rupture at this time. Proximal bilateral renal artery stents. 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 Lymph nodes: Redemonstrated central mesenteric dense clustered calcifications versus calcified conglomerate lymph nodes. Urinary bladder: Incompletely distended urinary bladder. Reproductive: Prominent prostate which indents the urinary bladder base. Bones/joints: Multilevel spondylosis and degenerative bony changes. Soft tissues: Small fat containing umbilical hernia. Small fat containing bilateral inguinal hernias. CT/CT chest abd pel w con* IMPRESSION: 1. Cardiomegaly, mild interstitial pulmonary edema and minimal posterior pleural effusions. 2. Chronic bibasilar atelectasis or scarring. 3. Atherosclerotic vascular disease including coronary artery disease. 4. Previous TAVR. IMPRESSION: 1. Mild hyperdensity along the gastric wall lesser curvature mucosal surface suspicious for mild active upper GI bleeding. 2. Extensive diffuse colonic diverticulosis without CT evidence of diverticulitis. 3. Infrarenal distal abdominal aortic aneurysm with previous aortoiliac stent graft repair. 4. Enhancing channel within the abdominal aortic aneurysm sac consistent with endoleak with mildly enlarged distal aortic aneurysm sac measuring 6.5 cm in diameter, previously 5.5 cm. 5. Cholelithiasis with very tiny punctate calculus demonstrated within small contracted gallbladder. 6. Redemonstrated central mesenteric dense clustered calcifications versus calcified conglomerate lymph nodes. Differential diagnosis includes sclerosing mesenteritis versus mesenteric carcinoid versus lymphoma. 7. 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 THIS REPORT CONTAINS FINDINGS THAT MAY BE CRITICAL TO PATIENT CARE. The findings were verbally communicated via telephone conference with Dr. Valdovinos at 7:36 AM CDT on 10/30/2021. The findings were acknowledged and understood.
[2021-10-30] MEDS: ondansetron 2 mg/ML SDV 2 mL 4 MG IVP (03:55)
[2021-10-30 03:57] LABS: INR 1.12 (0.8-1.2)
[2021-10-30] MEDS: pantoprazole 40 mg SDV 80 MG IVP ×2 (03:58→21:35)
[2021-10-30] MEDS: sodium chloride 0.9% 1,000 ML 999 ML IV (04:43)
[2021-10-30] MEDS: iohexol 350 mg/mL 100 mL Btl IV (05:07)
[2021-10-30] MEDS: metoclopramide 5 mg/mL SDV 2 mL 10 MG IVP (07:46)
[2021-10-30 09:25] LABS: Hematocrit 21.3 % (42.0-52.0); Hemoglobin 6.6 g/dL (11.7-16.6)
--- NOTE | 2021-10-30 10:43 | ECG_ITS ---
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 Measurements Intervals [place] Rate: 67 P: 2 AL: 210 QRS: 80 QRSD: 193 T: -10 QT: 522 QTc: 553 Interpretive Statements SINUS RHYTHM WITH FIRST DEGREE AV BLOCK LEFT BUNDLE BRANCH BLOCK [120+ ms QRS DURATION, 80+ ms Q/S IN V1/V2, 85+ ms R IN I/aVL/V5/V6] Compared to ECG 07/23/2019 19:15:04 First degree AV block now present Left bundle-branch block now present Sinus bradycardia no longer present Intraventricular conduction delay no longer present Electronically Signed On 10-31-2021 19:08:04 CDT by Jessica James M.D. [id number]
[2021-10-30 15:47] LABS: SARS Covid-2 Antigen Negative (Negative)
[2021-10-30 17:16] LABS: Hematocrit 26.7 % (42.0-52.0); Hemoglobin 8.5 g/dL (11.7-16.6)
--- NOTE | 2021-10-30 19:07 | PC.NURSE ---
report received from Marcos SHARMA at this time.
--- NOTE | 2021-10-30 19:59 | PC.NURSE ---
noted in TAR that units show infusing, at time of report, unit transfusion completed hours prior in day shift by Marcos SHARMA. unable to complete TAR documentation as this was performed by previous nurse.
[2021-10-30 21:29] LABS: Hematocrit 25.4 % (42.0-52.0); Hemoglobin 8.2 g/dL (11.7-16.6)
[2021-10-30] MEDS: pantoprazole 40 MG in sodium chloride 0.9% (plus) 100 ML 20 MG IV (21:37)
[2021-10-31] VITALS (51 sets, daily range): BP systolic 102–180; BP diastolic 65–106; PULSE 60–78; RESP 14–31; O2SAT 84–99
--- NOTE | 2021-10-31 01:14 | XRR_ITS ---
PROCEDURE INFORMATION: Exam: XR Chest Exam date and time: 10/31/2021 1:24 AM Age: 86 years old Clinical indication: Prior surgery; Surgery type: Defibrillator. Coronary stents. Tavr. Patient HX: New onset of cough TECHNIQUE: Imaging protocol: Radiologic exam of the chest. Views: 1 view. COMPARISON: CT chest abd pel w con* 10/30/2021 5:06 AM FINDINGS: Tubes, catheters and devices: Left chest ICD present. Partially visible endograft within abdominal aorta. Lungs: Diffuse emphysematous lung disease. Conspicuous interstitial markings diffusely. Negative for consolidation. Pleural spaces: Small volume pleural effusions. Negative for pneumothorax. Heart/Mediastinum: TAVR present. Bones/joints: Unremarkable. XR/XR chest 1V portable [id number] IMPRESSION: No focal pulmonary consolidation identified.
--- NOTE | 2021-10-31 01:25 | PC.NURSE ---
blood drawn per protocol and sent to lab.
--- NOTE | 2021-10-31 01:26 | PC.NURSE ---
sitting up on side of bed, reinforced fall precautions, assisted with placing hearing aids on sole skiver and placing next to bedside. denies further needs. nad.
[2021-10-31 04:28] LABS: Hematocrit 25.2 % (42.0-52.0); Hemoglobin 8.2 g/dL (11.7-16.6)
--- NOTE | 2021-10-31 05:25 | PC.NURSE ---
lab drawn per protocol from peripheral iv in left fa and taken to lab.
[2021-10-31 05:52] LABS: Anion Gap 14.9 (5-19); Blood Urea Nitrogen 29 mg/dL (8-23); Calcium 8.2 mg/dL (8.5-10.5); Carbon Dioxide 27 mmol/L (22-29); Chloride 102 mmol/L (98-107); Glucose 103 mg/dL (65-115); Osmolality Calculated 296 mOsm/kg (285-295); Potassium 3.9 mmol/L (3.5-5.1); Sodium 140 mmol/L (136-145)
--- NOTE | 2021-10-31 07:04 | PC.NURSE ---
report given to oncoming nurse.
--- NOTE | 2021-10-31 07:06 | PC.NURSE ---
RECIEVED REPORT ASSUMED CARE OF PT.
--- NOTE | 2021-10-31 07:08 | PC.NURSE ---
WHILE AT DOORWAY PT IS RESTING QUIETLY IN BED IN NAD. PT HAS GOOD CHEST RISE AND FALL. PT IS ON CONTINUOUS SPO2, NIBP, AND CM.
[2021-10-31 09:30] LABS: Hematocrit 24.9 % (42.0-52.0); Hemoglobin 7.9 g/dL (11.7-16.6)
--- NOTE | 2021-10-31 09:44 | PC.NURSE ---
UPDATED PT ON COURSE OF CARE. PT DENIES ANY FURTHER NEEDS AT THIS TIME.
--- NOTE | 2021-10-31 11:06 | PC.NURSE ---
UPDATED CLARIBEL PERRY WHILE AT NURSING STATION ON COURSE OF CARE FOR PT.
--- NOTE | 2021-10-31 12:38 | PC.NURSE ---
WHILE AT BEDSIDE PT IS UP IN CHAIR IN NAD. ATTEMPTED TO OBTAIN BLOOD DRAW THROUGH IV WAS UNSUCCESSFUL SURVEY MANAGER IN ROOM TO DRAW. PT DOES NOT VERBALIZE ANY NEEDS AT THIS TIME.
[2021-10-31 13:21] LABS: Hemoglobin 8.7 g/dL (11.7-16.6)
--- NOTE | 2021-10-31 14:38 | PC.NURSE ---
PT ASSISTED AMB FROM CHAIR TO BED AND POSITIONING IN BED. PT IS IN NAD.
--- NOTE | 2021-10-31 15:52 | PC.NURSE ---
UPDATED PT ON CARE. REQUESTED THAT NUCLEAR MONITORING TECHNICIAN CALL [facility] TO CHECK STATUS OF BED.
[2021-10-31 18:18] LABS: Hemoglobin 8.7 g/dL (11.7-16.6)
--- NOTE | 2021-10-31 19:22 | PC.NURSE ---
REPORT GIVEN TO CHAIM SHARMA ASSUMED CARE.
[2021-10-31] MEDS: dextrose 5%-sod chloride 0.9% 1,000 ML 100 ML IV (21:35)
--- NOTE | 2021-10-31 23:33 | PM.CONSULT ---
Providers/Reason For Consult Consulting Physician/Specialty*: Emergency room Reason for Consult*: Awaiting transfer to [place], GI bleed, endovascular leak Primary Care Provider: Mainor Gan History of Present Illness History of Present Illness Roland Diaz is a 86 year old male with a past history of hypertension, hyperlipidemia, CAD status post stents to LAD and ramus, systolic and diastolic CHF, hypertension, hypothyroidism, GERD, history of aortic stenosis status post transcatheter aortic valve replacement, EVAR for aortic aneurysm at [place] by Dr. Ferrara, ischemic cardiomyopathy, prostate cancer, TIA, history of SVT, history of AICD, who presents [facility] due to complaints of bloody stools and bloody vomit. Patient is on aspirin and Plavix at home, he has had weight loss, decreased appetite for the last month, increased abdominal discomfort. He tells me he has been constipated, he was on multiple bowel regimens, but on 10/30/2021, he woke up early in the morning, and had to go to the bathroom, when he noticed bright red stools, and he also had an episode of hematemesis, given. He presented to [facility], he was found to have a hemoglobin of 6.6, was given 1 unit PRBC. On CAT scan of abdomen, he was found to have radiographic evidence of endovascular leak, his team at [facility] were contacted, for transfer, he has been accepted in transfer, waiting on bed. Patient is currently alert oriented x3, sitting up beside the bed, he tells me that he has not had a bowel movement in a day, no repeat bloody or black stools, no lightheadedness, dizziness, no chest pain, no significant abdominal pain. Hospitalist team was consulted by ER physician for medical management while he awaits a bed at [place] Review of Systems Const: Denies: fever(s), chills, fatigue or malaise Eyes: Denies: change in vision ENMT: Denies: nasal congestion Resp: Denies: dyspnea, productive cough, non-productive cough or wheezing GI: Denies: abdominal pain, nausea, vomiting, hematemesis, hematochezia or melena : Denies: dysuria Musc: Denies: back pain Neuro: Denies: headache(s), dizziness or vertigo Medications/Allergies Home Medications Medication Instructions Recorded Confirmed Last Taken Type docusate sodium 100 mg capsule 100 mg PO DAILY 04/05/19 10/30/21 11/05/20 22:00 History (Colace) tamsulosin 0.4 mg capsule 0.4 mg PO DAILY 04/05/19 10/30/21 10/29/21 History ascorbic acid (vitamin C) 1,000 mg 1,000 mg PO DAILY 11/06/20 10/30/21 10/29/21 History tablet (Vitamin C) vitamin A 25,000 unit capsule 25,000 unit PO DAILY 11/06/20 10/30/21 11/05/20 22:00 History vitamin B complex 1 tab PO DAILY 11/06/20 10/30/21 10/29/21 History zinc 50 mg tablet 50 mg PO DAILY 11/06/20 10/30/21 10/29/21 History acetaminophen 325 mg capsule 325 mg PO QID PRN Pain 01/22/21 10/30/21 Unknown History aspirin 81 mg tablet,delayed 81 mg PO DAILY 01/22/21 10/30/21 10/29/21 History release (Adult Low Dose Aspirin) amiodarone 200 mg tablet 200 mg PO DAILY #90 tabs 05/21/21 10/30/21 Unknown Rx atorvastatin 40 mg tablet 40 mg PO DAILY #90 tabs 05/21/21 10/30/21 10/29/21 Rx clopidogrel 75 mg tablet 75 mg PO DAILY #90 tabs 05/21/21 10/30/21 10/29/21 Rx nitroglycerin 0.4 mg sublingual 0.4 mg sublingual Q5M PRN Chest 05/21/21 10/30/21 Unknown Rx tablet (Nitrostat) Pain #25 tabs pantoprazole 40 mg tablet,delayed 40 mg PO DAILY #90 tabs 05/21/21 10/30/21 10/29/21 Rx release finasteride 5 mg tablet 5 mg PO DAILY 06/21/21 10/30/21 10/29/21 History cholecalciferol (vitamin D3) 25 25 mcg PO DAILY 10/21/21 10/30/21 10/29/21 History mcg (1,000 unit) capsule potassium chloride 10 mEq 10 meq PO DAILY 10/21/21 10/30/21 10/29/21 History tablet,extended release spironolactone 25 mg tablet 25 mg PO DAILY 10/30/21 10/30/21 10/29/21 History Allergies Allergy/AdvReac Type Severity Reaction Status Date / Time No Known Allergies Allergy Verified 08/21/21 13:18 Current Medications Generic Name Dose Route Start Last Admin Trade Name Freq PRN Reason Stop Dose Admin Dextrose/Sodium Chloride 1,000 mls @ 100 mls/hr 10/31/21 21:30 10/31/21 21:35 Dextrose 5%-Sod Chloride 0.9% IV 100 mls/hr .Q10H COLLEEN Administration PFSH Acute PFSH: Medical History Abdominal aortic aneurysm (AAA) 4.3?4.3 approximately 5.04?5.04 distally Aortic stenosis ASHD (arteriosclerotic heart disease) CHF (congestive heart failure) iscHemic cardiomyopathy with preserved ejection fraction Cognitive dysfunction Elevated PSA Essential hypertension GERD (gastroesophageal reflux disease) History of nonmelanoma skin cancer Hyperlipidemia Hypothyroidism Ischemic cardiomyopathy EF 58%, grade 1/4 diastolic dysfunction, moderate aortic valve calcification, LVH (left ventricular hypertrophy) Prostate cancer Prostatic hypertrophy Pulmonary HTN SOB (shortness of breath) SVT (supraventricular tachycardia) TIA (transient ischemic attack) Ventricular tachycardia Status post AICD placement Surgical History S/P angioplasty with stent Coronary disease status post 3 stents S/P implantation of automatic cardioverter/defibrillator (AICD) [facility] [employer] 08/07 S/P TAVR (transcatheter aortic valve replacement) Status post endovascular aneurysm repair (EVAR) Family History Father CAD (coronary artery disease) Mother CAD (coronary artery disease) CHF (congestive heart failure) Brother Parkinson disease Sister Fibromyalgia Other Cancer Social History Smoking and tobacco status: never smoked Alcohol intake: never Lives independently: Yes Marital status: / service: No Current occupational status: retired History of recent travel: No Current gender identity: Male Gillian/Buddhism: Orthodox Vitals/I&O/Wt Last Vital Signs Temp 98.0 F 10/30/21 12:31 Pulse 77 10/31/21 23:19 Resp 18 10/31/21 23:19 BP 166/72 10/31/21 23:19 Pulse Ox 92 10/31/21 23:19 O2 Del Method 10/31/21 23:19 Weight last 48 hrs Weight 92.986 kg Physical Exam Const: COMMON NORMALS: no acute distress and patient oriented x3 HENMT: COMMON NORMALS: normocephalic HEAD & SCALP: normocephalic Neck/C-Spine: COMMON NORMALS: no JVD Resp: COMMON NORMALS: normal respiratory effort, No retractions, No use of accessory muscles and clear to auscultation bilaterally AUSCULTATION: clear to auscultation bilaterally Cardio: COMMON NORMALS: no JVD, regular rate, regular rhythm, S1 normal heart sound present and S2 normal heart sound present RATE: regular rate RHYTHM: regular rhythm HEART SOUNDS: S1 normal heart sound present and S2 normal heart sound present GI: COMMON NORMALS: Normal to inspection, nondistended, normoactive bowel sounds present, Soft to palpation, non-tender, No hepatosplenomegaly present, no masses and no bruits PALPATION: Yes Soft to palpation and Yes No hepatosplenomegaly present Extremity: COMMON NORMALS: capillary refill normal, no clubbing, cyanosis or edema, no calf tenderness and no pedal edema Neuro: COMMON NORMALS: patient oriented x3 Psych: COMMON NORMALS: mental status grossly normal Data : 10/31/21 18:04 10/31/21 05:24 A&P Assessment and plan (1) GI bleed: Status: Acute (2) Anemia: Status: Acute (3) 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 Infrarenal distal abdominal aortic aneurysm with previous aortoiliac stent graft repair. 4. Enhancing channel within the abdominal aortic aneurysm sac consistent with endoleak with mildly enlarged distal aortic aneurysm sac measuring 6.5 cm in diameter, previously 5.5 cm. -Currently hemodynamically stable, -Avoid blood thinners -Awaiting bed at [facility] GI bleed -CT scan shows 1. Mild hyperdensity along the gastric wall lesser curvature mucosal surface suspicious for mild active upper GI bleeding. 2. Extensive diffuse colonic diverticulosis without CT evidence of diverticulitis. 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 -Currently no abdominal pain complaints -We will have to monitor lactic acid JOSAFAT on CKD, creatinine 1.6, continue IV fluids Cath, monitor for fluid overload, decrease fluid rate CAD, hold anticoagulation, status post LAD stent and ramus stent CHF, monitor for exacerbation, no diuretics at this time Hypothyroidism, not on levothyroxine, check TSH PSVT continue amiodarone Hypertension, monitor blood pressures closely Consult Attestations Medical Necessity Statement: Patient is awaiting bed at [facility] for GI bleed, endovascular leak Coding Level of Care Code Acute Pharmacist Helper for Chg Fwd Diagnoses GI bleed K92.2 Anemia D64.9 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
[2021-11-01] VITALS (23 sets, daily range): BP systolic 114–181; BP diastolic 69–103; PULSE 64–81; RESP 13–29; O2SAT 79–98
[2021-11-01 00:21] LABS: Thyroid Stimulating Hormone 0.93 uIU/mL (0.27-4.20)
[2021-11-01] MEDS: pantoprazole 40 mg SDV IVP ×3 (00:36→23:42)
--- NOTE | 2021-11-01 01:45 | ECG_ITS ---
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 Measurements Intervals [place] Rate: 78 P: 153 [place]: 217 QRS: -20 QRSD: 190 T: 136 QT: 478 QTc: 545 Interpretive Statements ECTOPIC ATRIAL RHYTHM WITH FIRST DEGREE AV BLOCK LEFT BUNDLE BRANCH BLOCK [120+ ms QRS DURATION, 80+ ms Q/S IN V1/V2, 85+ ms R IN I/aVL/V5/V6] Compared to ECG 10/30/2021 10:43:25 Ectopic atrial rhythm now present Sinus rhythm no longer present Electronically Signed On 11-01-2021 18:20:28 CDT by Chucho Murray M.D. [id number]
--- NOTE | 2021-11-01 02:04 | PC.NURSE ---
Pt. woke up after sleeping well , states that his chest is burning. ordered a GI cocktail. Pt. states that the GI cocktail feels like it is working.
--- NOTE | 2021-11-01 02:06 | PC.NURSE ---
I have straightened the patients bed and straightened up the cords for the monitor and the oxygen tubing. Pt. asks Wheres my pain pill? If I had that and a Pain pill I could go to bed. I explained that it is two in the morning and a sleeping pill would at this point make him sleep all day. Pt. states that the burning in his chest is starting to let up.
[2021-11-01] MEDS: lidocaine 2% viscous 15 ML, aluminum-mag hydrox-simethicon 30 ML, sucralfate oral liq 1 GM PO (02:27)
--- NOTE | 2021-11-01 03:07 | PC.NURSE ---
Pt. is resting quietly in bed.
[2021-11-01 03:34] LABS: Basophils # 0.1 10^3/uL (0.0-0.1); Eosinophils # 0.4 10^3/uL (0.0-0.8); Eosinophils % 5.8 %; Hematocrit 23.7 % (42.0-52.0); Hemoglobin 7.6 g/dL (11.7-16.6); Lymphocytes # 0.4 10^3/uL (0.8-4.8); Lymphocytes % 5.5 %; Mean Corpuscular HGB Conc 32.1 g/dL (30.0-36.0); Mean Corpuscular Volume 93.7 fl (80-94); Mean Platelet Volume 9.8 fL (7.4-10.4); Monocytes # 0.9 10^3/uL (0.2-0.9); Monocytes % 11.9 %; Neutrophils # 5.44 10^3/uL (1.8-7.7); Neutrophils % 75.5 %; Nucleated Red Blood Cells % 0 %; Platelet Count 150 10^3/cmm (130-400); Red Blood Count 2.53 10^6/uL (4.1-5.3); Red Cell Distribution Width 16.1 % (12.1-15.1); White Blood Count 7.2 10^3/uL (4.0-10.0)
[2021-11-01 03:54] LABS: Lactic Sepsis W/Reflex 1.1 mmol/L (0.5-2.2)
[2021-11-01 03:56] LABS: Alanine Aminotransferase 7 U/L (0-41); Albumin Level 3.1 g/dL (3.5-5.2); Alkaline Phosphatase 100 IU/L (40-130); Anion Gap 11.8 (5-19); Aspartate Amino Transferase 14 U/L (0-40); Blood Urea Nitrogen 28 mg/dL (8-23); Calcium 8.1 mg/dL (8.5-10.5); Carbon Dioxide 29 mmol/L (22-29); Chloride 101 mmol/L (98-107); Globulin 2.2 g/dL (1.3-4.6); Glucose 153 mg/dL (65-115); Magnesium 2.4 mg/dL (1.7-2.3); Osmolality Calculated 295 mOsm/kg (285-295); Potassium 3.8 mmol/L (3.5-5.1); Sodium 138 mmol/L (136-145); Total Bilirubin 0.6 mg/dL (0.15-1.2); Total Protein 5.3 g/dL (6.6-8.7)
[2021-11-01 04:07] LABS: NT Pro B Type Natriuretic Pept 10547 pg/mL (0-450)
--- NOTE | 2021-11-01 04:12 | PC.NURSE ---
Pt. is wheezing while sleeping. I auscultated the lungs and breath sounds are clear. Wheezing seems to be in upper airway. I had the patient cough a few times and it seems to help.
[2021-11-01 04:21] LABS: Partial Thromboplastin Time 22.1 SECONDS (23.9-36.7)
[2021-11-01] MEDS: ipratropium-albuterol 3 mL Neb INHALATION (04:28)
--- NOTE | 2021-11-01 04:44 | PC.NURSE ---
Pt. has been given Duo -neb breathing treatment. Reported lab results to when calling for Duo neb order.
--- NOTE | 2021-11-01 05:09 | PC.NURSE ---
[facility] called to update patient status. They were updated and asked that we call them and report any significant status changes with the patient.
[2021-11-01] MEDS: tamsulosin 0.4 mg Capsule PO (08:09)
[2021-11-01] MEDS: atorvastatin 40 mg Tablet PO (08:09)
[2021-11-01] MEDS: ascorbic acid 500 mg Tablet 1000 MG PO (08:09)
[2021-11-01] MEDS: cholecalciferol (vitamin D3) 1,000 unit Tablet 1000 UNIT PO (08:09)
[2021-11-01] MEDS: finasteride 5 mg Tablet PO (08:09)
[2021-11-01] MEDS: amiodarone 200 mg Tablet PO (08:09)
[2021-11-01] MEDS: dextrose 5%-sod chloride 0.9% 1,000 ML 100 ML IV ×2 (08:10→18:44)
[2021-11-01] MEDS: sucralfate 1 gm Tablet PO ×4 (08:13→21:07)
--- NOTE | 2021-11-01 08:13 | PC.NURSE ---
Did a assessment on the patient and discovered nothing of note.
[2021-11-01] MEDS: levalbuterol 1.25 mg/3 mL Neb INHALATION (09:49)
--- NOTE | 2021-11-01 20:35 | PC.NURSE ---
Pt. states that he would like another breathing treatment. On assessment , patient's airway is clear and pt. has no distress or shortness of breath. Pt. states that when he lies down he has cough and starts wheezing.
[2021-11-01] MEDS: benzonatate 100 mg Capsule PO (21:07)
[2021-11-01] MEDS: FUROsemide 10 mg/mL SDV 2mL 20 MG IVP (21:07)
[2021-11-01 21:32] LABS: Basophils # 0.1 10^3/uL (0.0-0.1); Basophils % 0.6 %; Eosinophils # 0.3 10^3/uL (0.0-0.8); Eosinophils % 3.3 %; Hematocrit 24.1 % (42.0-52.0); Hemoglobin 7.6 g/dL (11.7-16.6); Lymphocytes # 0.4 10^3/uL (0.8-4.8); Lymphocytes % 5.5 %; Mean Corpuscular HGB Conc 31.5 g/dL (30.0-36.0); Mean Corpuscular Hemoglobin 29.9 pg (28.0-34.0); Mean Corpuscular Volume 94.9 fl (80-94); Mean Platelet Volume 9.5 fL (7.4-10.4); Monocytes % 13.2 %; Neutrophils # 6.01 10^3/uL (1.8-7.7); Neutrophils % 77.1 %; Nucleated Red Blood Cells % 0 %; Platelet Count 155 10^3/cmm (130-400); Red Blood Count 2.54 10^6/uL (4.1-5.3); Red Cell Distribution Width 15.9 % (12.1-15.1); White Blood Count 7.8 10^3/uL (4.0-10.0)
--- NOTE | 2021-11-01 23:32 | PC.NURSE ---
Pt. states that he has been off of water pills for a while and that may be causing his wheezing while sleeping. Pt. states that they stopped his spironlactone once it started causing gynoclemastia.
[2021-11-02 00:14] VITALS: BP 159/89; PULSE 70; RESP 22; O2SAT 96
--- NOTE | 2021-11-02 01:59 | PC.NURSE ---
Pt. seems to get short of breath and wheeze while lying down. I have spoke with about this and the fact that his BNP was elevated, and he has fluids infusing at 100 ml/hr. Dr. rincon has given order to hold fluids. Pt. wanted to get up and walk . I walked him around the nurses station with the aid of a walker. Pt. now sitting up in a recliner in his room.
[2021-11-02 05:24] LABS: Basophils # 0.1 10^3/uL (0.0-0.1); Basophils % 1.1 %; Eosinophils # 0.3 10^3/uL (0.0-0.8); Eosinophils % 5.2 %; Hematocrit 24.2 % (42.0-52.0); Hemoglobin 7.5 g/dL (11.7-16.6); Lymphocytes # 0.4 10^3/uL (0.8-4.8); Lymphocytes % 5.5 %; Mean Corpuscular Hemoglobin 29.5 pg (28.0-34.0); Mean Corpuscular Volume 95.3 fl (80-94); Mean Platelet Volume 8.8 fL (7.4-10.4); Monocytes # 0.9 10^3/uL (0.2-0.9); Monocytes % 14.7 %; Neutrophils # 4.65 10^3/uL (1.8-7.7); Neutrophils % 73.3 %; Nucleated Red Blood Cells % 0 %; Platelet Count 130 10^3/cmm (130-400); Red Blood Count 2.54 10^6/uL (4.1-5.3); Red Cell Distribution Width 15.9 % (12.1-15.1); White Blood Count 6.3 10^3/uL (4.0-10.0)
[2021-11-02 05:47] LABS: Alanine Aminotransferase 9 U/L (0-41); Albumin Level 3.4 g/dL (3.5-5.2); Alkaline Phosphatase 100 IU/L (40-130); Anion Gap 13.5 (5-19); Aspartate Amino Transferase 19 U/L (0-40); Blood Urea Nitrogen 24 mg/dL (8-23); Calcium 8.3 mg/dL (8.5-10.5); Carbon Dioxide 27 mmol/L (22-29); Chloride 101 mmol/L (98-107); Globulin 2.2 g/dL (1.3-4.6); Glucose 109 mg/dL (65-115); Magnesium 2.4 mg/dL (1.7-2.3); Osmolality Calculated 291 mOsm/kg (285-295); Phosphorus 3.4 mg/dL (2.5-4.5); Potassium 3.5 mmol/L (3.5-5.1); Sodium 138 mmol/L (136-145); Total Bilirubin 0.7 mg/dL (0.15-1.2); Total Protein 5.6 g/dL (6.6-8.7)
[2021-11-02 05:59] VITALS: BP 145/74; PULSE 66; RESP 28; O2SAT 96
[2021-11-02] MEDS: sucralfate 1 gm Tablet PO (07:53)
--- NOTE | 2021-11-02 08:01 | PC.NURSE ---
pc to dr. manzo informed him that pt feels more sob and his having problems lying flat. provided dr. moss with current vs. vo to adm 40 mg ivp lasix one time with readback.
[2021-11-02] MEDS: FUROsemide 10 mg/mL SDV 4mL 40 MG IVP (08:07)
[2021-11-02] MEDS: ondansetron 2 mg/ML SDV 2 mL 4 MG IVP (08:16)
--- NOTE | 2021-11-02 08:20 | P.PN_ITS ---
Subjective Subjective: Overnight patient's fluid was stopped because he was complaining of mild shortness of breath. No urine output documented in the chart since admission. Patient transferred to [facility] during the day today. Has remained hemodynamically stable and afebrile. I was called by the RN early in the morning because of shortness of breath. Patient received 40 mg of IV Lasix since then diuresing well. IV fluids are stopped. Repeat hemoglobin and labs appreciated. Vitals/I&O/Wt Last Vital Signs Temp 98.0 F 10/30/21 12:31 Pulse 66 11/02/21 05:59 Resp 28 H 11/02/21 05:59 BP 145/74 11/02/21 05:59 Pulse Ox 96 11/02/21 05:59 O2 Del Method 11/02/21 05:59 O2 Flow Rate 2 11/02/21 05:59 11/01/21 11/02/21 11/02/21 22:59 06:59 14:59 Intake Total 999 708.333 / 2708.333 Balance 999 708.333 / 2708.333 Physical Exam Narrative: Patient was transferred to [facility] before can be examined. 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 Remained hemodynamically stable. Avoid blood thinners Transfer to [facility] for further treatment. GI bleed -Hemoglobin has been stable, has remained stable. 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 -Currently no abdominal pain complaints -We will have to monitor lactic acid JOSAFAT on CKD, creatinine 1.6. Has remained stable. Shortness of breath: Most likely secondary to mild congestive heart failure from prolonged IV fluids during hospitalization. Fluid stopped. IV Lasix 40 mg once. CAD, hold anticoagulation, status post LAD stent and ramus stent History of congestive heart failure: Last echocardiogram in August 2020 showed EF 60% with grade 2 diastolic dysfunction, severe aortic valve stenosis, severe MR. 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
--- NOTE | 2021-11-02 08:31 | PC.NURSE ---
PT CO CP INFORMED DR. KRISTINA GERBER TO REPEAT EKG. EKG REPEATED AND PROVIDED TO DR. KRISTINA GERBER WITH READBACK TO CONTINUE WITH TRANSFER.
[2021-11-02 08:33] VITALS: RESP 18; O2SAT 91
[2021-11-02] MEDS: morphine 4 mg/mL SDV 1 mL 1 MG IVP (08:33)
[2021-11-02 08:43] VITALS: BP 163/86; PULSE 84; RESP 18; O2SAT 94
== END 2021-11-02 08:47 | disposition short-term general hospital (02) ==
PROVIDERS: Emergency Medicine; Family Medicine; Emergency Provider Emergency Medicine; PCP Clinical Nurse Specialist Adult Health
DX: K92.0 Hematemesis (principal); K92.2 Gastrointestinal hemorrhage, unspecified; R79.89 Other specified abnormal findings of blood chemistry; I71.4 Abdominal aortic aneurysm, without rupture; D64.9 Anemia, unspecified; I11.0 Hypertensive heart disease with heart failure; I50.9 Heart failure, unspecified; E78.5 Hyperlipidemia, unspecified; Z85.46 Personal history of malignant neoplasm of prostate; Z86.73 Personal history of transient ischemic attack (TIA), and cerebral infarction without residual deficits
CPT/HCPCS: 36415; 36430; 71045; 71260; 74177; 80048; 80053; 83605; 83690; 83735; 83880; 84100; 84443; 85014; 85018; 85025; 85610; 85730; 86850; 86900; 86920; 87426; 93005; 94640; 94664; 96365; 96366; 96375; 96376; 99285; C9113; J1940; J2270; J2405; J2765; J7030; J7614; P9016; P9040; Q9967

== ENCOUNTER → 2021-11-01 18:13 | Outpatient (BNVA) | payer MEDICARE, SELFPAY | PROVIDERS: PCP Clinical Nurse Specialist Adult Health; Visit Provider Internal Medicine Cardiovascular Disease | DX: I25.10 Atherosclerotic heart disease of native coronary artery without angina pectoris (principal); I25.5 Ischemic cardiomyopathy; Z01.818 Encounter for other preprocedural examination | CPT/HCPCS: 85025 ==

== ENCOUNTER 2021-11-30 23:03 | Observation (INO) | payer MEDICARE, SELFPAY ==
[2021-11-30 23:08] VITALS: BP 139/67; PULSE 67; RESP 18; TEMP 36.8; O2SAT 92; BMI 30.2
--- NOTE | 2021-11-30 23:29 | XRR_ITS ---
PROCEDURE INFORMATION: Exam: XR Chest Exam date and time: 11/30/2021 11:34 PM Age: 86 years old Clinical indication: Other: Edema heart failure; Prior surgery; Additional info: Edema and heart failure TECHNIQUE: Imaging protocol: Radiologic exam of the chest. Views: 1 view. COMPARISON: CR (CHEST, ) 10/31/2021 1:24 AM FINDINGS: Tubes, catheters and devices: Left-sided pacemaker. Lungs: Emphysematous changes. Bibasilar atelectasis. Pleural spaces: Trace bilateral pleural effusions. Heart/Mediastinum: Cardiomegaly. Bones/joints: Unremarkable. XR/XR chest 1V portable [id number] IMPRESSION: 1. Cardiomegaly. 2. Emphysematous changes. 3. Trace bilateral pleural effusions. 4. Bibasilar atelectasis.
--- NOTE | 2021-11-30 23:30 | ECG_ITS ---
[facility] Test Date: 2021-11-30 Pat Name: Roland Diaz Department: Room: Gender: Male Rehabilitation Medicine Physician: : 1935 Requested By: Marquis Reynaga Order Number: [id number] Kimberlee MD: Ceferino Arias M.D. Measurements Intervals [place] Rate: 66 P: 65 [place]: 227 QRS: -46 QRSD: 189 T: 72 QT: 503 QTc: 531 Interpretive Statements SINUS RHYTHM WITH FIRST DEGREE AV BLOCK LEFT AXIS DEVIATION [QRS AXIS < -30] LEFT BUNDLE BRANCH BLOCK [120+ ms QRS DURATION, 80+ ms Q/S IN V1/V2, 85+ ms R IN I/aVL/V5/V6] Compared to ECG 11/01/2021 01:45:33 Left-axis deviation now present Ectopic atrial rhythm no longer present Electronically Signed On 12-01-2021 13:17:59 CDT by Ceferino Arias M.D. [email or web address].[email or web address].[employer]/store/OM/[id number]
[2021-12-01] VITALS (12 sets, daily range): BP systolic 133–164; BP diastolic 59–75; PULSE 62–73; RESP 18–20; TEMP 36.5–37.1; O2SAT 90–99
--- NOTE | 2021-12-01 | ED_ITS ---
Documented by User: GWEN Grewal 12/01/21 01:27 HPI - Extremity Problem General: Chief complaint: Extremity Problem,Nontraumatic Stated complaint: bilateral leg pain Time Seen by Provider: 11/30/21 23:29 History of Present Illness: Patient is an 86-year-old male who comes to the ED with bilateral lower extremity edema and pain. Patient has a history of CHF, AAA, prostate cancer, GERD, TAVR, EVAR. Patient was hospitalized up at [facility] and was released approximately 10 days ago. He was put on Bumex to help with fluid retention in legs. Patient says his legs have continued to swell and are becoming more painful. He took 2 doses of his Bumex today and does not feel like it is helping with his edema. He came here to the ED to p ossibly get IV Lasix to help with his edema. He denies any chest pain or shortness of breath. Denies shortness of breath when laying flat. Denies fever, chills, nausea/vomiting, abdominal pain, bladder or bowel symptoms. Associated symptoms: Deny chest pain, fever(s) or rash Review of Systems Const: Denies: fever(s), chills or fatigue Eyes: Denies: change in vision or eye discomfort ENMT: Denies: throat pain, odynophagia, nasal discharge or nasal congestion Card: Reports: edema (Bilateral lower extremity edema); Denies: chest pain, palpitations, swelling of feet/ankles, dyspnea on exertion or orthopnea Resp: Denies: dyspnea, productive cough or non-productive cough GI: Denies: abdominal pain, nausea, vomiting, diarrhea, constipation or hematochezia : Denies: flank pain, difficulty urinating, dysuria or hematuria Musc: Denies: neck pain, back pain or extremity swelling Skin/Breast: Denies: rash or new lesions Neuro: Denies: headache(s), numbness in extremities or weakness in extremities PFS ED PFSH: Medical History Abdominal aortic aneurysm (AAA) 4.3?4.3 approximately 5.04?5.04 distally Aortic stenosis ASHD (arteriosclerotic heart disease) CHF (congestive heart failure) iscHemic cardiomyopathy with preserved ejection fraction Cognitive dysfunction Elevated PSA Essential hypertension GERD (gastroesophageal reflux disease) History of nonmelanoma skin cancer Hyperlipidemia Hypothyroidism Ischemic cardiomyopathy EF 58%, grade 1/4 diastolic dysfunction, moderate aortic valve calcification, LVH (left ventricular hypertrophy) Prostate cancer Prostatic hypertrophy Pulmonary HTN SOB (shortness of breath) SVT (supraventricular tachycardia) TIA (transient ischemic attack) Ventricular tachycardia Status post AICD placement Surgical History S/P angioplasty with stent Coronary disease status post 3 stents S/P implantation of automatic cardioverter/defibrillator (AICD) ST HERBIE SINGLE CHAMBER 08/07 S/P TAVR (transcatheter aortic valve replacement) Status post endovascular aneurysm repair (EVAR) Family History Father CAD (coronary artery disease) Mother CAD (coronary artery disease) CHF (congestive heart failure) Brother Parkinson disease Sister Fibromyalgia Other Cancer Social History Smoking and tobacco status: never smoked Alcohol intake: never Lives independently: Yes Marital status: / service: No Current occupational status: retired History of recent travel: No Current gender identity: Male Gillian/Episcopalian: Oriental Orthodox Physical Exam Const: COMMON NORMALS: patient oriented x3 and alert GENERAL APPEARANCE: cooperative HENMT: COMMON NORMALS: normocephalic HEAD & SCALP: normocephalic MOUTH: Normal oral and palatal mucosa present THROAT: posterior oropharynx normal and uvula midline Neck/C-Spine: COMMON NORMALS: supple GENERAL: Yes normal visual inspection Resp: COMMON NORMALS: normal respiratory effort, No retractions, No use of accessory muscles and clear to auscultation bilaterally AUSCULTATION: clear to auscultation bilaterally Cardio: COMMON NORMALS: regular rate, regular rhythm, No gallops present (Cardio), No clicks present (Cardio) and Peripheral pulses 2+ throughout RATE: regular rate RHYTHM: regular rhythm HEART SOUNDS: Murmur heart sound present systolic Location: axilla Intensity: III/ Characteristics: blowing PERIPHERAL PULSES: Peripheral pulses 2+ throughout GI: COMMON NORMALS: Normal to inspection, nondistended, normoactive bowel sounds present, Soft to palpation, non-tender and no masses PALPATION: Yes Soft to palpation : COMMON NORMALS: Yes no CVA tenderness BLADDER/KIDNEY EXAM: Yes no CVA tenderness Back/Pelvis: COMMON NORMALS: no CVA tenderness Extremity: GENERAL: Yes edema (3+ pitting edema in bilateral lower extremities. No weeping) Neuro: COMMON NORMALS: patient oriented x3 SENSORIUM/ORIENTATION: Yes alert GAIT: Yes Normal gait present Skin: GENERAL SKIN EXAM: dry skin Course Consultations: Consultation #1: I contacted the hospitalist water conservation specialist and told about patient case. He agreed to have patient admitted to the hospital. Dr. Barkley will be placed in the admitting orders. Time: 01:10 Vital Signs: Vital signs: Vital Signs Temperature 98.2 F 11/30/21 23:08 Pulse Rate 67 11/30/21 23:08 Respiratory Rate 18 11/30/21 23:08 Blood Pressure 139/67 11/30/21 23:08 Pulse Oximetry 92 11/30/21 23:08 Oxygen Delivery Me thod 11/30/21 23:08 MDM - Extremity (Nontraumatic) Medical Decision Making Patient is an 86-year-old male who comes to the ED with bilateral lower extremity edema and pain. Patient has a history of CHF, AAA, prostate cancer, GERD, TAVR, EVAR. Denies any chest pain or shortness of breath. Vitals are stable. Patient has 3+ pitting edema in the bilateral lower extremities. Systolic murmur noted. Rest of exam is benign. Creatinine 2.7 and BNP is 20,992. Baseline Trope 77 2-hour troponin pending. Chest x-ray shows cardiomegaly and some trace bilateral pleural effusions. Talked with Dr. Barkely about patient case and he agreed that patient should get admitted with JOSAFAT and acute exacerbation of heart failure. I contacted hospitalist and told about patient case and he agreed to have patient admitted. Patient was given IV Lasix here in the ED. Dr. Barkley placed the admitting orders. Lab Data I reviewed the patient's lab results. : 12/01/21 00:00 12/01/21 00:00 Radiology Impressions Chest X-Ray 11/30/21 23:29 IMPRESSION: 1. Cardiomegaly. 2. Emphysematous changes. 3. Trace bilateral pleural effusions. 4. Bibasilar atelectasis. Laboratory Results WBC 5.1 10^3/uL (4.0-10.0) 12/01/21 00:00 RBC 3.06 10^6/uL (4.1-5.3) L 12/01/21 00:00 Hgb 8.8 g/dL (11.7-16.6) L 12/01/21 00:00 Hct 28.7 % (42.0-52.0) L 12/01/21 00:00 MCV 93.8 fl (80-94) 12/01/21 00:00 MCH 28.8 pg (28.0-34.0) 12/01/21 00:00 MCHC 30.7 g/dL (30.0-36.0) 12/01/21 00:00 RDW 17.2 % (12.1-15.1) H 12/01/21 00:00 Plt Count 143 10^3/cmm (130-400) 12/01/21 00:00 MPV 9.6 fL (7.4-10.4) 12/01/21 00:00 Neut % (Auto) 75.5 % 12/01/21 00:00 Lymph % (Auto) 7.1 % 12/01/21 00:00 Keith % (Auto) 13.0 % 12/01/21 00:00 Eos % (Auto) 3.2 % 12/01/21 00:00 Baso % (Auto) 0.8 % 12/01/21 00:00 Neut # (Auto) 3.83 10^3/uL (1.8-7.7) 12/01/21 00:00 Lymph # (Auto) 0.4 10^3/uL (0.8-4.8) L 12/01/21 00:00 Keith # (Auto) 0.7 10^3/uL (0.2-0.9) 12/01/21 00:00 Eos # (Auto) 0.2 10^3/uL (0.0-0.8) 12/01/21 00:00 Baso # (Auto) 0.0 10^3/uL (0.0-0.1) 12/01/21 00:00 Nucleated RBC % (auto) 0 % 12/01/21 00:00 Nucleated RBCs # 0.0 /100WBC 12/01/21 00:00 Sodium 133 mmol/L (136-145) L 12/01/21 00:00 Potassium 3.6 mmol/L (3.5-5.1) 12/01/21 00:00 Chloride 94 mmol/L (98-107) L 12/01/21 00:00 Carbon Dioxide 28 mmol/L (22-29) 12/01/21 00:00 Anion Gap 14.6 (5-19) 12/01/21 00:00 BUN 29 mg/dL (8-23) H 12/01/21 00:00 Creatinine 2.7 mg/dL (0.7-1.2) H 12/01/21 00:00 GFR Calculation Not Reportable 12/01/21 00:00 Glucose 92 mg/dL (65-115) 12/01/21 00:00 Calculated Osmolality 281 mOsm/kg (285-295) L 12/01/21 00:00 Calcium 8.5 mg/dL (8.5-10.5) 12/01/21 00:00 Total Bilirubin 0.4 mg/dL (0.15-1.2) 12/01/21 00:00 AST 17 U/L (0-40) 12/01/21 00:00 ALT 11 U/L (0-41) 12/01/21 00:00 Alkaline Phosphatase 116 U/L (40-130) 12/01/21 00:00 Troponin T Baseline 77 ng/L (0-15) H 12/01/21 00:00 NT-Pro-B Natriuret Pep 79496 pg/mL (0-450) H 12/01/21 00:00 Total Protein 6.2 g/dL (6.6-8.7) L 12/01/21 00:00 Albumin 3.5 g/dL (3.5-5.2) 12/01/21 00:00 Globulin 2.7 g/dL (1.3-4.6) 12/01/21 00:00 EKG Data EKG 1: EKG interpretation date: 12/01/21 Interpretation: Sinus rhythm, [address] segment elevation or depression seen. Discharge Plan Discharge Patient Disposition: Admitted As Inpatient Clinical Impression: JOSAFAT (acute kidney injury) Acute exacerbation of CHF (congestive heart failure) Qualifiers: Heart failure type: unspecified Qualified Code(s): I50.9 - Heart failure, unspecified Condition: Stable Coding Level of Care Code ED Metal Fabricating Supervisor for Chg Fwd Exam Comprehensive Documented by User: Trung Barkley DO 12/01/21 01:29 HPI - Extremity Problem General: Chief complaint: Extremity Problem,Nontraumatic Stated complaint: bilateral leg pain Time Seen by Provider: 11/30/21 23:29 PFSH ED PFSH: Medical History Abdominal aortic aneurysm (AAA) 4.3?4.3 approximately 5.04?5.04 distally Aortic stenosis ASHD (arteriosclerotic heart disease) CHF (congestive heart failure) iscHemic cardiomyopathy with preserved ejection fraction Cognitive dysfunction Elevated PSA Essential hypertension GERD (gastroesophageal reflux disease) History of nonmelanoma skin cancer Hyperlipidemia Hypothyroidism Ischemic cardiomyopathy EF 58%, grade 1/4 diastolic dysfunction, moderate aortic valve calcification, LVH (left ventricular hypertrophy) Prostate cancer Prostatic hypertrophy Pulmonary HTN SOB (shortness of breath) SVT (supraventricular tachycardia) TIA (transient ischemic attack) Ventricular tachycardia Status post AICD placement Surgical History S/P angioplasty with stent Coronary disease status post 3 stents S/P implantation of automatic cardioverter/defibrillator (AICD) ST HERBIE SINGLE CHAMBER 08/07 S/P TAVR (transcatheter aortic valve replacement) Status post endovascular aneurysm repair (EVAR) Family History Father CAD (coronary artery disease) Mother CAD (coronary artery disease) CHF (congestive heart failure) Brother Parkinson disease Sister Fibromyalgia Other Cancer Social History Smoking and tobacco status: never smoked Alcohol intake: never Lives independently: Yes Marital status: / service: No Current occupational status: retired History of recent travel: No Current gender identity: Male Gillian/Episcopalian: Oriental Orthodox Course Vital Signs: Vital signs: Vital Signs Temperature 98.2 F 11/30/21 23:08 Pulse Rate 67 09/10/22 23:08 Respiratory Rate 18 11/30/21 23:08 Blood Pressure 139/67 11/30/21 23:08 Pulse Oximetry 92 11/30/21 23:08 Oxygen Delivery Me thod 11/30/21 23:08 MDM - Extremity (Nontraumatic) Medical Decision Making Patient is an 86-year-old male who comes to the ED with bilateral lower extremity edema and pain. Patient has a history of CHF, AAA, prostate cancer, GERD, TAVR, EVAR. Denies any chest pain or shortness of breath. Vitals are stable. Patient has 3+ pitting edema in the bilateral lower extremities. Systolic murmur noted. Rest of exam is benign. Creatinine 2.7 and BNP is 20,992. Baseline Trope 77 2-hour troponin pending. Chest x-ray shows cardiomegaly and some trace bilateral pleural effusions. Talked with Dr. Barkley about patient case and he agreed that patient should get admitted with JOSAFAT and acute exacerbation of heart failure. I contacted hospitalist and told about patient case and he agreed to have patient admitted. Patient was given IV Lasix here in the ED. Dr. Barkley placed the admitting orders. This patient was originally seen by Mr. Ronnell PA-C.? I agree with his history, evaluation, and treatment. Lab Data : 12/01/21 00:00 12/01/21 00:00 Radiology Impressions Chest X-Ray 11/30/21 23:29 IMPRESSION: 1. Cardiomegaly. 2. Emphysematous changes. 3. Trace bilateral pleural effusions. 4. Bibasilar atelectasis. Laboratory Results WBC 5.1 10^3/uL (4.0-10.0) 12/01/21 00:00 RBC 3.06 10^6/uL (4.1-5.3) L 12/01/21 00:00 Hgb 8.8 g/dL (11.7-16.6) L 12/01/21 00:00 Hct 28.7 % (42.0-52.0) L 12/01/21 00:00 MCV 93.8 fl (80-94) 12/01/21 00:00 MCH 28.8 pg (28.0-34.0) 12/01/21 00:00 MCHC 30.7 g/dL (30.0-36.0) 12/01/21 00:00 RDW 17.2 % (12.1-15.1) H 12/01/21 00:00 Plt Count 143 10^3/cmm (130-400) 12/01/21 00:00 MPV 9.6 fL (7.4-10.4) 12/01/21 00:00 Neut % (Auto) 75.5 % 12/01/21 00:00 Lymph % (Auto) 7.1 % 12/01/21 00:00 Keith % (Auto) 13.0 % 12/01/21 00:00 Eos % (Auto) 3.2 % 12/01/21 00:00 Baso % (Auto) 0.8 % 12/01/21 00:00 Neut # (Auto) 3.83 10^3/uL (1.8-7.7) 12/01/21 00:00 Lymph # (Auto) 0.4 10^3/uL (0.8-4.8) L 12/01/21 00:00 Keith # (Auto) 0.7 10^3/uL (0.2-0.9) 12/01/21 00:00 Eos # (Auto) 0.2 10^3/uL (0.0-0.8) 12/01/21 00:00 Baso # (Auto) 0.0 10^3/uL (0.0-0.1) 12/01/21 00:00 Nucleated RBC % (auto) 0 % 12/01/21 00:00 Nucleated RBCs # 0.0 /100WBC 12/01/21 00:00 Sodium 133 mmol/L (136-145) L 12/01/21 00:00 Potassium 3.6 mmol/L (3.5-5.1) 12/01/21 00:00 Chloride 94 mmol/L (98-107) L 12/01/21 00:00 Carbon Dioxide 28 mmol/L (22-29) 12/01/21 00:00 Anion Gap 14.6 (5-19) 12/01/21 00:00 BUN 29 mg/dL (8-23) H 12/01/21 00:00 Creatinine 2.7 mg/dL (0.7-1.2) H 12/01/21 00:00 GFR Calculation Not Reportable 12/01/21 00:00 Glucose 92 mg/dL (65-115) 12/01/21 00:00 Calculated Osmolality 281 mOsm/kg (285-295) L 12/01/21 00:00 Calcium 8.5 mg/dL (8.5-10.5) 12/01/21 00:00 Total Bilirubin 0.4 mg/dL (0.15-1.2) 12/01/21 00:00 AST 17 U/L (0-40) 12/01/21 00:00 ALT 11 U/L (0-41) 12/01/21 00:00 Alkaline Phosphatase 116 U/L (40-130) 12/01/21 00:00 Troponin T Baseline 77 ng/L (0-15) H 12/01/21 00:00 NT-Pro-B Natriuret Pep 08408 pg/mL (0-450) H 12/01/21 00:00 Total Protein 6.2 g/dL (6.6-8.7) L 12/01/21 00:00 Albumin 3.5 g/dL (3.5-5.2) 12/01/21 00:00 Globulin 2.7 g/dL (1.3-4.6) 12/01/21 00:00 Discharge Plan Discharge Patient Disposition: Admitted As Inpatient Clinical Impression: JOSAFAT (acute kidney injury) Acute exacerbation of CHF (congestive heart failure) Qualifiers: Heart failure type: unspecified Qualified Code(s): I50.9 - Heart failure, unspecified Condition: Stable Coding Level of Care Code ED Metal Fabricating Supervisor for g Fwd Exam Comprehensive
[2021-12-01 00:09] LABS: Basophils % 0.8 %; Eosinophils # 0.2 10^3/uL (0.0-0.8); Eosinophils % 3.2 %; Hematocrit 28.7 % (42.0-52.0); Hemoglobin 8.8 g/dL (11.7-16.6); Lymphocytes # 0.4 10^3/uL (0.8-4.8); Lymphocytes % 7.1 %; Mean Corpuscular HGB Conc 30.7 g/dL (30.0-36.0); Mean Corpuscular Hemoglobin 28.8 pg (28.0-34.0); Mean Corpuscular Volume 93.8 fl (80-94); Mean Platelet Volume 9.6 fL (7.4-10.4); Monocytes # 0.7 10^3/uL (0.2-0.9); Neutrophils # 3.83 10^3/uL (1.8-7.7); Neutrophils % 75.5 %; Nucleated Red Blood Cells % 0 %; Platelet Count 143 10^3/cmm (130-400); Red Blood Count 3.06 10^6/uL (4.1-5.3); Red Cell Distribution Width 17.2 % (12.1-15.1); White Blood Count 5.1 10^3/uL (4.0-10.0)
[2021-12-01 00:29] LABS: Troponin(5th) Baseline 77 ng/L (0-15)
[2021-12-01 00:34] LABS: Alanine Aminotransferase 11 U/L (0-41); Albumin Level 3.5 g/dL (3.5-5.2); Alkaline Phosphatase 116 U/L (40-130); Anion Gap 14.6 (5-19); Aspartate Amino Transferase 17 U/L (0-40); Blood Urea Nitrogen 29 mg/dL (8-23); Calcium 8.5 mg/dL (8.5-10.5); Carbon Dioxide 28 mmol/L (22-29); Chloride 94 mmol/L (98-107); Globulin 2.7 g/dL (1.3-4.6); Glucose 92 mg/dL (65-115); NT Pro B Type Natriuretic Pept 20992 pg/mL (0-450); Osmolality Calculated 281 mOsm/kg (285-295); Potassium 3.6 mmol/L (3.5-5.1); Sodium 133 mmol/L (136-145); Total Bilirubin 0.4 mg/dL (0.15-1.2); Total Protein 6.2 g/dL (6.6-8.7)
[2021-12-01] MEDS: FUROsemide 10 mg/mL SDV 10mL 80 MG IVP (01:11)
--- NOTE | 2021-12-01 01:47 | ECG_ITS ---
[facility] Test Date: 2021-12-01 Pat Name: Roland Diaz Department: Room: Gender: Male Clip On Sunglasses Assembler: : 1935 Requested By: Marquis Reynaga Order Number: [id number] Kimberlee MD: Ceferino Arias M.D. Measurements Intervals [place] Rate: 69 P: 58 [place]: 219 QRS: -45 QRSD: 190 T: 78 QT: 508 QTc: 546 Interpretive Statements SINUS RHYTHM WITH FIRST DEGREE AV BLOCK LEFT AXIS DEVIATION [QRS AXIS < -30] LEFT BUNDLE BRANCH BLOCK [120+ ms QRS DURATION, 80+ ms Q/S IN V1/V2, 85+ ms R IN I/aVL/V5/V6] Compared to ECG 11/30/2021 23:44:43 No significant changes Electronically Signed On 12-01-2021 13:26:13 CDT by Ceferino Arias M.D. [email or web address].[email or web address] Imaginggulfport behavioral health systemDreamitizeohiohealth hardin [facility].[employer]/store/[id number]
--- NOTE | 2021-12-01 06:08 | PM.HP ---
Providers/Chief Complaint Admitting Physician: Tarah Alexis MD Chief Complaint: bilateral leg pain History of Present Illness Roland Diaz is a 86 year old male carries history of diastolic congestive heart failure grade 2 diastolic dysfunction, severe aortic valve stenosis, mitral valve regurgitation presented today with chief complaint of worsening of shortness of breath and weight gain. Of note, patient was recently transferred to [facility] for hematemesis where no source of bleeding was identified, established coronary disease status post 4 stents, severe aortic valve stenosis status post TAVR, history of VT s/p AICD, on amiodarone for V. tach. Patient had [facility] single-chamber ICD. Patient is stating that at [facility] EGD and colonoscopy did not reveal any active source of bleeding, he was discharged with recommendations to follow-up with the supplier diversity director. Patient is stating that his mitral valve could not be replaced because of severe calcification as well. Today patient is presented to the hospital because of excessive weight gain, burning sensation in his legs. Patient is stating that he watches his diet he tries to drink less than 2 L a day, watches his sodium intake he has not experienced any chest pain however experiencing severe burning sensation in his legs with weight gain, patient is stating this time his legs are swollen like never before, he has been compliant with his Bumex 2 mg daily. In the ER he has been diagnosed with diastolic congestive heart failure exacerbation, he was given diuretics 80 mg of Lasix, acute on chronic kidney disease with worsening of creatinine 2.6 noted I will request another echo and add low-dose gabapentin because of acute on chronic kidney disease Review of Systems Const: Reports: body aches, fatigue and malaise Eyes: Denies: change in vision ENMT: Denies: throat pain Card: Reports: swelling of feet/ankles and dyspnea on exertion; Denies: chest pain Resp: Reports: dyspnea GI: Denies: nausea : Denies: flank pain Musc: Reports: muscle cramps; Denies: neck pain Skin/Breast: Denies: rash Neuro: Denies: headache(s) Psych: Reports: anxiety Endo: Denies: polyuria Luis Alfredo/Lymph: Denies: easy bruising All/Imm: Denies: urticaria Medications/Allergies Home Medications Medication Instructions Recorded Confirmed Last Taken Type docusate sodium 100 mg capsule 100 mg PO BID PRN Constipation 04/05/19 12/01/21 11/05/20 22:00 History (Colace) tamsulosin 0.4 mg capsule 0.4 mg PO DAILY 04/05/19 12/01/21 10/29/21 History ascorbic acid (vitamin C) 1,000 mg 1,000 mg PO DAILY 11/06/20 12/01/21 10/29/21 History tablet (Vitamin C) aspirin 81 mg tablet,delayed 81 mg PO DAILY 01/22/21 12/01/21 10/29/21 History release (Adult Low Dose Aspirin) amiodarone 200 mg tablet 200 mg PO DAILY #90 tabs 05/21/21 12/01/21 Unknown Rx atorvastatin 40 mg tablet 40 mg PO DAILY #90 tabs 05/21/21 12/01/21 10/29/21 Rx nitroglycerin 0.4 mg sublingual 0.4 mg sublingual Q5M PRN Chest 05/21/21 12/01/21 Unknown Rx tablet (Nitrostat) Pain #25 tabs pantoprazole 40 mg tablet,delayed 40 mg PO DAILY #90 tabs 05/21/21 12/01/21 10/29/21 Rx release finasteride 5 mg tablet 5 mg PO DAILY 06/21/21 12/01/21 10/29/21 History bumetanide 2 mg tablet 2 mg PO DAILY 11/29/21 12/01/21 Unknown History hydralazine 25 mg tablet 75 mg PO 3XD 11/29/21 12/01/21 Unknown History ondansetron 8 mg disintegrating 8 mg PO 3XD PRN Nausea And Vomiting 11/29/21 12/01/21 Unknown History tablet calcium carbonate 500 mg calcium 500 mg PO TID PRN Indigestion 12/01/21 12/01/21 Unknown History (1,250 mg) chewable tablet cyanocobalamin (vitamin B-12) 250 250 mcg PO DAILY 12/01/21 12/01/21 Unknown History mcg tablet (Vitamin B-12) ferrous sulfate 325 mg (65 mg 325 mg PO DAILY 12/01/21 12/01/21 Unknown History iron) tablet fluticasone propionate 50 1 spray intranasal DAILY 12/01/21 12/01/21 Unknown History mcg/actuation nasal spray,suspension guaifenesin 600 mg tablet,extended 600 mg PO BID PRN Cough 12/01/21 12/01/21 Unknown History release polyethylene glycol 3350 17 gram 17 g PO DAILY 12/01/21 12/01/21 Unknown History oral powder packet (Miralax) sennosides 8.6 mg-docusate sodium 1 tab-cap PO DAILY 12/01/21 12/01/21 Unknown History 50 mg tablet (Senna with Docusate Sodium) vitamin A 12/01/21 Unknown History Allergies Allergy/AdvReac Type Severity Reaction Status Date / Time No Known Allergies Allergy Verified 11/29/21 09:57 PFSH Acute PFSH: Medical History Abdominal aortic aneurysm (AAA) 4.3?4.3 approximately 5.04?5.04 distally Aortic stenosis ASHD (arteriosclerotic heart disease) CHF (congestive heart failure) iscHemic cardiomyopathy with preserved ejection fraction Cognitive dysfunction Elevated PSA Essential hypertension GERD (gastroesophageal reflux disease) History of nonmelanoma skin cancer Hyperlipidemia Hypothyroidism Ischemic cardiomyopathy EF 58%, grade 1/4 diastolic dysfunction, moderate aortic valve calcification, LVH (left ventricular hypertrophy) Prostate cancer Prostatic hypertrophy Pulmonary HTN SOB (shortness of breath) SVT (supraventricular tachycardia) TIA (transient ischemic attack) Ventricular tachycardia Status post AICD placement Surgical History S/P angioplasty with stent Coronary disease status post 3 stents S/P implantation of automatic cardioverter/defibrillator (AICD) [facility] SINGLE CHAMBER 08/07 S/P TAVR (transcatheter aortic valve replacement) Status post endovascular aneurysm repair (EVAR) Family History Father CAD (coronary artery disease) Mother CAD (coronary artery disease) CHF (congestive heart failure) Brother Parkinson disease Sister Fibromyalgia Other Cancer Social History Smoking and tobacco status: never smoked Alcohol intake: never Lives independently: Yes Marital status: / service: No Current occupational status: retired History of recent travel: No Current gender identity: Male Gillian/Protestant: Confucianist Vitals/I&O/Wt Last Vital Signs Temp 98.2 F 12/01/21 04:00 Pulse 66 12/01/21 04:00 Resp 20 H 12/01/21 04:00 BP 145/65 12/01/21 04:00 Pulse Ox 96 12/01/21 04:00 O2 Del Method 12/01/21 02:36 11/30/21 11/30/21 12/01/21 14:59 22:59 06:59 Intake Total 0 / 0 Output Total 1200 / 1200 Balance -1200 / -1200 Weight last 48 hrs Weight 103.51 kg Weight 98.43 kg Physical Exam Narrative: Pleasant cooperative male With active signs of congestive heart failure Bilateral extremity edema Extending all the way up to his knees No genital swelling Abdomen is soft Loud S1, S2 with pansystolic murmur Abdomen soft Currently patient is saturating well on room air Awake and alert Nonfocal neuro exam Nephews at the bedside Patient is able to void urine in the urinal Multiple petechiae all over his extremities Data : 12/01/21 00:00 12/01/21 00:00 A&P Assessment and plan (1) Acute exacerbation of CHF (congestive heart failure): Status: Acute Qualifiers: Heart failure type: unspecified Qualified Code(s): I50.9 - Heart failure, unspecified (2) Peripheral neuropathy: Status: Acute (3) S/P TAVR (transcatheter aortic valve replacement): Status: Acute (4) History of nonmelanoma skin cancer: Status: Resolved (5) GERD (gastroesophageal reflux disease): Status: Acute (6) Claudication of both lower extremities: Status: Acute (7) Bradycardia: Status: Acute (8) CHF (congestive heart failure): Status: Acute Qualifiers: Heart failure chronicity: chronic Heart failure type: systolic Qualified Code(s): I50.22 - Chronic systolic (congestive) heart failure (9) Pulmonary HTN: Status: Acute (10) Ventricular tachycardia: Status: Acute (11) Acute kidney injury superimposed on chronic kidney disease: Status: Acute Plan Diastolic congestive heart failure exacerbation Most likely due to underlying valvular pathology No active chest pain Hemoglobin 8.8 EKG showing left bundle branch block which is chronic I will give him IV Lasix Patient follows up with Dr. James outpatient I would repeat echo History of established coronary disease he was taking aspirin and Plavix, currently reviewed his home medications 1 more time for now I am continuing aspirin recently had hematemesis work-up with negative source of bleeding as per the patient Request records from [facility] on chronic kidney disease Creatinine seems to be around 1.6-2 It seems to be related to cardiorenal CHF exacerbation Patient is able to void urine without difficulty Anticipating, with diuresis History of V. tach Takes amiodarone Status post AICD History of AAA, vasculopath Infrarenal distal abdominal aortic aneurysm with previous aortoiliac stent graft repair. On CTA there was concern for renal artery stenosis however renal ultrasound did not show any evidence of renal artery stenosis of left kidney Peripheral neuropathy, history of claudication of lower extremities No signs of vascular ischemia I have requested D-dimer If D-dimer comes back high he will need venous Doppler study Will add low-dose gabapentin for now CTA aorta with runoff showed 1. Poor visualization of the anterior tibial, posterior tibial, and peroneal vessels bilaterally, left leg with near complete nonvisualization and only partial proximal visualization of the right peroneal and anterior tibial artery. No visible contrast to the level of the ankle and feet. 2. Examination reveals a mild infrarenal fusiform abdominal aortic aneurysm. Maximum AP diameter of the lumen 5.1 cm and transverse diameter 5.1 cm. The aneurysm begins just below the renal arteries. Length of the aneurysm approximately 11 cm. Prominent intramural thrombus. No significant true lumen stenosis. No visible intimal flap or dissection. Moderately advanced arterial sclerotic disease. 3. 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 4. Evidence of hemodynamically significant stenosis at the ostium of the right renal artery estimated 60-70%. Full code goals of care were discussed with the patient initially he said he is okay with chest compressions and defibrillation but does not want to wake up with a tube in his mouth then stated that for temporary measures intubation is fine for him He will be treated as full code for now Cardiac diet DVT prophylaxis Heparin I do believe he will benefit from a cardiology consult because of his extensive cardiovascular pathology Attestations Medical Necessity Statement*: Anticipating less than 2 midnights for management of diastolic congestive heart failure exacerbation management Time Spent in Patient Care: 40 Coding Level of Care Code Acute [place] for [facility] Fwd Diagnoses Acute exacerbation of CHF (congestive heart failure) I50.9 Heart failure type: unspecified Peripheral neuropathy G62.9 S/P TAVR (transcatheter aortic valve replacement) Z95.2 History of nonmelanoma skin cancer Z85.828 GERD (gastroesophageal reflux disease) K21.9 Claudication of both lower extremities I73.9 Bradycardia R00.1 CHF (congestive heart failure) I50.22 Heart failure chronicity: chronic Heart failure type: systolic Pulmonary HTN I27.20 Ventricular tachycardia I47.2 Acute kidney injury superimposed on chronic kidney disease N17.9; N18.9
[2021-12-01 06:15] LABS: Troponin 5 6HR 71.73 ng/L (0-15)
[2021-12-01 06:16] LABS: Troponin 5 6HR Delta -5.27 ng/L (0-12)
--- NOTE | 2021-12-01 06:21 | ECG_ITS ---
[facility] Test Date: 2021-12-01 Pat Name: Roland Diaz Department: Room: 278 Gender: Male Construction Director: : 1935 Requested By: Marquis Reynaga Order Number: [id number] Mohan MD: Ceferino Arias M.D. Measurements Intervals [place] Rate: 62 P: 158 PA: 219 QRS: 23 QRSD: 192 T: 169 QT: 514 QTc: 524 Interpretive Statements ECTOPIC ATRIAL RHYTHM WITH FIRST DEGREE AV BLOCK LEFT BUNDLE BRANCH BLOCK [120+ ms QRS DURATION, 80+ ms Q/S IN V1/V2, 85+ ms R IN I/aVL/V5/V6] LATERAL MYOCARDIAL INFARCTION , PROBABLY RECENT [40+ ms Q WAVE AND/OR ST/T ABNORMALITY IN I/aVL/V5/V6] ACUTE AL Compared to ECG 12/01/2021 01:47:15 Ectopic atrial rhythm now present Myocardial infarct finding now present Sinus rhythm no longer present Left-axis deviation no longer present Electronically Signed On 12-01-2021 13:25:54 CDT by Ceferino Arias M.D. [email or web address]
--- NOTE | 2021-12-01 06:36 | USCV_ITS ---
RajeshbeRoland Age: 86 Gender: M : 1935 Exam Date: 12/01/2021 06:59 Ordering Phys: Tarah Alexis MD Technologist: Cristina Mayers Exam Location: [facility] Indication: CHF MR BP: 145 / 65 HR: 65 Rhythm: Sinus Technical Quality: Adequate MEASUREMENTS (Male / Female) Normal Values 2D ECHO LV Diastolic Diameter PLAX 5.6 cm 4.2 - 5.9 / 3.9 - 5.3 cm LV Systolic Diameter PLAX 4.4 cm LV Chamber Size 4.5 cm IVS Diastolic Thickness 1.7 cm 0.6 - 1.0 / 0.6 - 0.9 cm IVS Systolic Thickness 1.4 cm LVPW Diastolic Thickness 1.7 cm 0.6 - 1.0 / 0.6 - 0.9 cm LVPW Systolic Thickness 1.9 cm RV Chamber Size 3.8 cm LVOT Diameter 2.0 cm LV Ejection Fraction 2D Teich 45.1 % LV Ejection Fraction MOD 2C 34.3 % LV Ejection Fraction 2C AL 33.8 % LA Diameter 6.1 cm LA Width 6.2 cm LA Height 5.1 cm RA Width 5.3 cm RA Height 6.3 cm Aorta at Sinotubular Diameter 2.6 cm IVC Diameter 2.2 cm M-MODE Aortic Annulus Diameter 3.9 cm LA Ao Ratio MM 1.8 MV E Point Septal Separation 0.9 cm DOPPLER AV Peak Velocity 233.7 cm/s LVOT Peak Velocity 79.0 cm/s AV Area Cont Eq vti 0.9 cm squared AV Area Cont Eq pk 1.1 cm squared MV Area PHT 4.3 cm squared Mitral E to A Ratio 2.6 MV E' Velocity 168.0 cm/s TR Peak Velocity 374.2 cm/s TR Peak Gradient 56.0 mmHg TR Mean Velocity 268.0 cm/s TR Mean Gradient 33.9 mmHg TR Velocity Time Integral 130.8 cm TV Peak E Velocity 89.0 cm/s Right Atrial Pressure 15.0 mmHg Pulmonary Artery Systolic Pressu 71.0 mmHg RV Acceleration Time 0.1 s RV Ejection Time 0.3 s RV AcT/ET 0.4 FINDINGS Left Ventricle Left ventricle is normal in size. LV systolic function is mildly reduced with EF of 40-45%. Regional wall motion abnormalities cannot be accurately assessed because of poor ultrasonic windows. Right Ventricle Normal in size. RV function is mild to moderately reduced. Pacemaker lead is seen. Right Atrium Dilated RA Left Atrium Severely dilated Mitral Valve Severe mitral annular calcification. Severe mitral regurgitation. Aortic Valve Prosthetic aortic valve is seen. Mean gradient across aortic valve is 11 mmHg. DVI is 0.3. Normally functioning valve Tricuspid Valve Moderate to severe tricuspid regurgitation. RVSP is more than 60 mmHg. This is consistent with severe pulmonary hypertension Pulmonic Valve Not well-visualized Pericardium Normal Aorta Normal in size IVC RA pressure is elevated. IVC not collapsing CONCLUSIONS Technically limited quality echocardiogram because of poor ultrasonic windows. LV systolic function is mildly reduced with EF of 40 to 45%. RV is mild to moderately hypokinetic. Biatrial enlargement. Severe mitral regurgitation Bioprosthetic aortic valve is seen. DVI 0.3. Normally functioning Moderate to severe tricuspid regurgitation. Severe pulmonary hypertension Compared to prior echocardiogram from 2020, LV systolic function is mildly reduced now. Patient now has bioprosthetic aortic valve. Patient also has moderate to severe tricuspid regurgitation Ceferino Arias MD (Electronically Signed) Final Date: 01 December 2021 12:52 S
[2021-12-01 06:37] LABS: D Dimer 5.76 ug/mIFEU (0-0.59)
[2021-12-01 06:48] LABS: Thyroid Stimulating Hormone 1.19 uIU/mL (0.27-4.20)
--- NOTE | 2021-12-01 06:56 | USR_ITS ---
PROCEDURE INFORMATION: Exam: US Duplex Lower Extremity Arteries Exam date and time: 12/01/2021 7:32 AM Age: 86 years old Clinical indication: Pain; Leg, lower; Bilateral; Patient HX: Admit for chf; Additional info: Leg pain TECHNIQUE: Imaging protocol: Real-time ultrasound scan of the arteries of the bilateral lower extremities with 2-D pina scale, color Doppler flow and spectral waveform analysis. Images documented and saved. COMPARISON: CT angio abd aorta runof [id number] 09/02/2019 5:17 PM FINDINGS: Right common femoral artery: No occlusion or significant stenosis. Normal waveform. Right superficial femoral artery: No occlusion or significant stenosis. Normal waveform. Right popliteal artery: No occlusion or significant stenosis. Normal waveform. Right calf/foot arteries: No occlusion or significant stenosis in the visualized arteries. Dorsalis pedis artery is patent. Left common femoral artery: No occlusion or significant stenosis. Normal waveform. Left superficial femoral artery: No occlusion or significant stenosis. Normal waveform. Left popliteal artery: No occlusion or significant stenosis. Normal waveform. Left calf/foot arteries: No occlusion or significant stenosis in the visualized arteries. Dorsalis pedis artery is patent. US/[place] [id number] IMPRESSION: No stenosis or occlusion.
[2021-12-01] MEDS: heparin 5,000 unit/mL INJ 1 mL 5000 UNIT SUBCUT ×3 (08:17→21:05)
[2021-12-01] MEDS: hyDRALAzine 25 mg Tablet 75 MG PO ×3 (09:50→21:04)
[2021-12-01] MEDS: ferrous sulfate EC 325 mg Tablet PO (09:50)
[2021-12-01] MEDS: tamsulosin 0.4 mg Capsule PO (09:51)
[2021-12-01] MEDS: aspirin 81 mg EC Tablet PO (09:51)
[2021-12-01] MEDS: sennosides-docusate Tablet 1 TAB PO (09:51)
[2021-12-01] MEDS: amiodarone 200 mg Tablet PO (09:51)
[2021-12-01] MEDS: atorvastatin 40 mg Tablet PO (09:51)
[2021-12-01] MEDS: gabapentin 100 mg Capsule PO ×2 (09:51→17:18)
[2021-12-01] MEDS: pantoprazole DR 40 mg Tablet PO (09:51)
[2021-12-01] MEDS: finasteride 5 mg Tablet PO (09:51)
[2021-12-01 12:53] LABS: Iron 21 ug/dL (59-158); Total Iron Binding Capacity 296 mcg/dl; Unsaturated Iron Binding 275 ug/dL (112-347)
[2021-12-01] MEDS: FUROsemide 10 mg/mL SDV 10mL 60 MG IVP (13:56)
--- NOTE | 2021-12-01 14:20 | PC.NURSE ---
pt refuses thapa catheter,states he suffered an injury with one at a previous hospitalization.pt instructed that strict intact and output is very important..pt states he will comply
--- NOTE | 2021-12-01 20:38 | USR_ITS ---
PROCEDURE INFORMATION: Exam: US Duplex Lower Extremity Veins, Bilateral Exam date and time: 12/01/2021 9:30 PM Age: 86 years old Clinical indication: Swelling (edema) of limb; Lower extremity, bilateral; Additional info: Dvt TECHNIQUE: Imaging protocol: Real-time Duplex ultrasound of the bilateral extremities with 2-D pina scale, color Doppler flow and spectral waveform analysis with image documentation. Complete exam focused on the bilateral lower extremity veins. COMPARISON: US CV arterial duplex [facility] [id number] 12/01/2021 7:32 AM FINDINGS: Right deep veins: Unremarkable. The common femoral, femoral, proximal profunda femoral and popliteal veins are patent without thrombus. Normal Doppler waveforms. Normal compressibility and/or augmentation response. Right superficial veins: Saphenofemoral junction is patent without thrombus. Left deep veins: Unremarkable. The common femoral, femoral, proximal profunda femoral and popliteal veins are patent without thrombus. Normal Doppler waveforms. Normal compressibility and/or augmentation response. Left superficial veins: Saphenofemoral junction is patent without thrombus. Soft tissues: Unremarkable. US/CV venous duplex [facility] [id number] IMPRESSION: No evidence of deep vein thrombosis.
[2021-12-02] VITALS (11 sets, daily range): BP systolic 119–160; BP diastolic 56–70; PULSE 67–760; RESP 16–20; TEMP 36.7–36.9; O2SAT 88–97
[2021-12-02] MEDS: FUROsemide 10 mg/mL SDV 10mL 60 MG IVP ×2 (01:22→14:09)
[2021-12-02 05:09] LABS: Basophils # 0.1 10^3/uL (0.0-0.1); Basophils % 1.2 %; Eosinophils # 0.2 10^3/uL (0.0-0.8); Eosinophils % 3.8 %; Hematocrit 29.8 % (42.0-52.0); Hemoglobin 8.5 g/dL (11.7-16.6); Lymphocytes # 0.3 10^3/uL (0.8-4.8); Lymphocytes % 6.3 %; Mean Corpuscular HGB Conc 28.5 g/dL (30.0-36.0); Mean Corpuscular Hemoglobin 27.9 pg (28.0-34.0); Mean Corpuscular Volume 97.7 fl (80-94); Mean Platelet Volume 9.8 fL (7.4-10.4); Monocytes # 0.6 10^3/uL (0.2-0.9); Monocytes % 11.3 %; Neutrophils # 4.01 10^3/uL (1.8-7.7); Neutrophils % 77.2 %; Nucleated Red Blood Cells % 0 %; Platelet Count 131 10^3/cmm (130-400); Red Blood Count 3.05 10^6/uL (4.1-5.3); Red Cell Distribution Width 17.3 % (12.1-15.1); White Blood Count 5.2 10^3/uL (4.0-10.0)
[2021-12-02] MEDS: heparin 5,000 unit/mL INJ 1 mL 5000 UNIT SUBCUT ×3 (05:18→23:37)
[2021-12-02 05:30] LABS: Alanine Aminotransferase 11 U/L (0-41); Albumin Level 3.2 g/dL (3.5-5.2); Alkaline Phosphatase 109 U/L (40-130); Anion Gap 14.6 (5-19); Aspartate Amino Transferase 16 U/L (0-40); Blood Urea Nitrogen 35 mg/dL (8-23); Calcium 8.1 mg/dL (8.5-10.5); Carbon Dioxide 28 mmol/L (22-29); Chloride 96 mmol/L (98-107); Chol HDL Ratio 2.12 mg/dL (1.0-5.00); Cholesterol 110 mg/dL (0-200); Globulin 2.5 g/dL (1.3-4.6); Glucose 110 mg/dL (65-115); HDL Cholesterol 52 mg/dL (60-100); LDL Cholesterol Calculated 49 mg/dL (50-129); Magnesium 2.2 mg/dL (1.7-2.3); Osmolality Calculated 289 mOsm/kg (285-295); Potassium 3.6 mmol/L (3.5-5.1); Sodium 135 mmol/L (136-145); Total Bilirubin 0.3 mg/dL (0.15-1.2); Total Protein 5.7 g/dL (6.6-8.7); Triglycerides 43 mg/dL (0-150); VLDL Cholestrol Calculation 9 mg/dL (0-30)
[2021-12-02 05:54] LABS: Estmated Average Glucose 88; Hemoglobin A1C 4.7 % (4.0-6.0)
--- NOTE | 2021-12-02 07:00 | NM_ITS ---
WS: [id number] NUCLEAR MEDICINE LUNG VENTILATION AND PERFUSION CLINICAL INFORMATION: PE, chest discomfort TECHNIQUE: Ventilation/perfusion lung scan with 32.7 mCi technetium 99m DTPA. 5.2 mCi MAA COMPARISON: Radiograph November 30, 2021 FINDINGS: Moderate chronic emphysematous changes on the recent radiograph and CT. Patchy radiotracer deposition along the central bronchi on the ventilatory imaging. Patchy heterogeneous perfusion with matched de fects. No mismatched or lobar defects to indicate pulmonary embolus. NM/NM pul vent and perfus* [id number] IMPRESSION: 1. Low probability for pulmonary embolus.
[2021-12-02] MEDS: tamsulosin 0.4 mg Capsule PO (10:16)
[2021-12-02] MEDS: ferrous sulfate EC 325 mg Tablet PO (10:17)
[2021-12-02] MEDS: sennosides-docusate Tablet 1 TAB PO (10:17)
[2021-12-02] MEDS: hyDRALAzine 25 mg Tablet 75 MG PO ×3 (10:17→20:35)
[2021-12-02] MEDS: gabapentin 100 mg Capsule PO ×2 (10:17→17:29)
[2021-12-02] MEDS: finasteride 5 mg Tablet PO (10:17)
[2021-12-02] MEDS: amiodarone 200 mg Tablet PO (10:17)
[2021-12-02] MEDS: atorvastatin 40 mg Tablet PO (10:17)
[2021-12-02] MEDS: fluticasone nasal spray 16gm Btl 1 SPRAY INTRANASAL (10:18)
[2021-12-02] MEDS: pantoprazole DR 40 mg Tablet PO (10:18)
[2021-12-02] MEDS: aspirin 81 mg EC Tablet PO (10:18)
--- NOTE | 2021-12-02 13:46 | PM.PN ---
Subjective Subjective: No acute events overnight. Patient has remained hemodynamically stable and afebrile. Today morning on examination patient seen walking around the hallway with family members. Overnight lower limb Dopplers and VQ scan was ordered for an elevated D-dimer. Patient continues to remain on room air. Patient states his legs are getting better after IV Lasix. Vitals/I&O/Wt Last Vital Signs Temp 98.3 F 12/02/21 10:58 Pulse 67 12/02/21 10:58 Resp 20 H 12/02/21 10:58 BP 131/64 12/02/21 10:58 Pulse Ox 94 12/02/21 10:58 O2 Del Method Heated High Flow 12/02/21 10:58 O2 Flow Rate 2 12/02/21 04:05 12/01/21 12/02/21 12/02/21 22:59 06:59 14:59 Intake Total 240 / 840 360 / 360 Output Total 350 / 950 750 / 1700 Balance -350 / -350 -510 / -860 360 / 360 Weight last 48 hrs Weight 103.51 kg Weight 98.43 kg Physical Exam Narrative: Pleasant cooperative male With active signs of congestive heart failure Bilateral extremity edema Extending all the way up to his knees No genital swelling Abdomen is soft Loud S1, S2 with pansystolic murmur Abdomen soft Currently patient is saturating well on room air Awake and alert Nonfocal neuro exam Nephews at the bedside Patient is able to void urine in the urinal Multiple petechiae all over his extremities Data : 12/02/21 04:43 12/02/21 04:43 A&P Assessment and plan (1) Acute kidney injury superimposed on chronic kidney disease: Recent baseline has been 1.6-1.9. Currently 2.1 coming down from 2.7 on admission. Most likely secondary to CRS. Medical reconciliation done for nephrotoxic drugs. No electrolyte abnormality. Continue with IV Lasix as above. Continue to monitor BMP daily for now. Status: Acute (2) Acute exacerbation of CHF (congestive heart failure): Echocardiogram done shows an EF of 45%, mild to moderate RV hypokinesis, biatrial enlargement, severe MR, bioprosthetic aortic valve normal functioning, moderate to severe TR, severe pulmonary hypertension Continue IV Lasix 60 mg twice daily. Strict input output charting, daily weights. Fluid restriction up to 1500 cc. Status: Acute Qualifiers: Heart failure type: combined systolic and diastolic Qualified Code(s): I50.43 - Acute on chronic combined systolic (congestive) and diastolic (congestive) heart failure (3) CHF (congestive heart failure): Status: Acute Qualifiers: Heart failure chronicity: chronic Heart failure type: systolic Qualified Code(s): I50.22 - Chronic systolic (congestive) heart failure (4) Pulmonary HTN: Status: Acute (5) S/P TAVR (transcatheter aortic valve replacement): Status: Acute (6) Bradycardia: Status: Acute (7) Ventricular tachycardia: Status: Acute (8) Claudication of both lower extremities: Status: Acute (9) GERD (gastroesophageal reflux disease): Status: Acute (10) Peripheral neuropathy: Status: Inactive (11) Severe mitral regurgitation: Status: Acute Plan Elevated D-dimer. Patient continues to remain on room air. Less likely PE. Lower limb Dopplers negative for DVT. History of V. tach: Post ICD implantation. History of severe MR History of pulmonary hypertension History of RV failure. History of EVAR with endovascular leak. History of anemia. Analgesia: Tylenol as needed Glycemic control: Not needed Nutrition: Cardiac diet CODE STATUS: Full code PUD prophylaxis: Protonix DVT prophylaxis: Heparin 5000 every 12 hourly Discharge planning: Discharge back home within next 24 hours if remains hemodynamically stable. Continue with care at [facility]. This documentation was created by [employer] public relations consultant software. Every effort was made to ensure accuracy of public relations consultant. Any obvious errors or omissions should be clarified with the author of the document. Attestations Medical Necessity Statement*: Requires further hospitalization for management of acute on chronic biventricular heart failure, JOSAFAT on CKD Time Spent in Patient Care: Greater than 35 minutes Coding Level of Care Code Acute [employer] [facility] for [facility] Fwd Diagnoses Acute kidney injury superimposed on chronic kidney disease N17.9; N18.9 Acute exacerbation of CHF (congestive heart failure) I50.43 Heart failure type: combined systolic and diastolic CHF (congestive heart failure) I50.22 Heart failure chronicity: chronic Heart failure type: systolic Pulmonary HTN I27.20 S/P TAVR (transcatheter aortic valve replacement) Z95.2 Bradycardia R00.1 Ventricular tachycardia I47.2 Claudication of both lower extremities I73.9 GERD (gastroesophageal reflux disease) K21.9 Peripheral neuropathy G62.9 Severe mitral regurgitation I34.0
[2021-12-03] VITALS (7 sets, daily range): BP systolic 131–146; BP diastolic 63–79; PULSE 66–73; RESP 17–20; TEMP 36.6–36.8; O2SAT 92–98
[2021-12-03] MEDS: FUROsemide 10 mg/mL SDV 10mL 60 MG IVP (01:22)
[2021-12-03 05:12] LABS: Basophils # 0.1 10^3/uL (0.0-0.1); Basophils % 1.1 %; Eosinophils # 0.2 10^3/uL (0.0-0.8); Eosinophils % 4.8 %; Hematocrit 27.5 % (42.0-52.0); Hemoglobin 8.3 g/dL (11.7-16.6); Lymphocytes # 0.3 10^3/uL (0.8-4.8); Lymphocytes % 7.3 %; Mean Corpuscular HGB Conc 30.2 g/dL (30.0-36.0); Mean Corpuscular Hemoglobin 28.5 pg (28.0-34.0); Mean Corpuscular Volume 94.5 fl (80-94); Mean Platelet Volume 9.9 fL (7.4-10.4); Monocytes # 0.6 10^3/uL (0.2-0.9); Monocytes % 13.2 %; Neutrophils # 3.24 10^3/uL (1.8-7.7); Neutrophils % 73.4 %; Nucleated Red Blood Cells % 0 %; Platelet Count 128 10^3/cmm (130-400); Red Blood Count 2.91 10^6/uL (4.1-5.3); Red Cell Distribution Width 17.1 % (12.1-15.1); White Blood Count 4.4 10^3/uL (4.0-10.0)
[2021-12-03 05:37] LABS: Alanine Aminotransferase 10 U/L (0-41); Albumin Level 3.3 g/dL (3.5-5.2); Alkaline Phosphatase 103 U/L (40-130); Anion Gap 15.6 (5-19); Aspartate Amino Transferase 13 U/L (0-40); Blood Urea Nitrogen 35 mg/dL (8-23); Calcium 8.3 mg/dL (8.5-10.5); Carbon Dioxide 29 mmol/L (22-29); Chloride 98 mmol/L (98-107); Globulin 2.6 g/dL (1.3-4.6); Glucose 97 mg/dL (65-115); Osmolality Calculated 296 mOsm/kg (285-295); Potassium 3.6 mmol/L (3.5-5.1); Sodium 139 mmol/L (136-145); Total Bilirubin 0.3 mg/dL (0.15-1.2); Total Protein 5.9 g/dL (6.6-8.7)
[2021-12-03] MEDS: heparin 5,000 unit/mL INJ 1 mL 5000 UNIT SUBCUT (05:39)
[2021-12-03] MEDS: finasteride 5 mg Tablet PO (11:21)
[2021-12-03] MEDS: hyDRALAzine 25 mg Tablet 75 MG PO (11:21)
[2021-12-03] MEDS: pantoprazole DR 40 mg Tablet PO (11:22)
[2021-12-03] MEDS: gabapentin 100 mg Capsule PO (11:22)
[2021-12-03] MEDS: amiodarone 200 mg Tablet PO (11:22)
[2021-12-03] MEDS: ferrous sulfate EC 325 mg Tablet PO (11:22)
[2021-12-03] MEDS: atorvastatin 40 mg Tablet PO (11:22)
[2021-12-03] MEDS: aspirin 81 mg EC Tablet PO (11:22)
[2021-12-03] MEDS: tamsulosin 0.4 mg Capsule PO (11:22)
[2021-12-03] MEDS: sennosides-docusate Tablet 1 TAB PO (11:23)
--- NOTE | 2021-12-03 11:54 | P.DS_ITS ---
Discharge Providers Date of Admission: 12/01/21 01:04 Date of Discharge: December 03, 2021 Attending Provider at Admission: Tarah Alexis MD Attending Provider at Discharge: Ifeanyi Yoo MD Diagnoses at Discharge Discharge Diagnosis (1) Acute kidney injury superimposed on chronic kidney disease: Status: Acute (2) Acute exacerbation of CHF (congestive heart failure): Status: Acute Qualifiers: Heart failure type: combined systolic and diastolic Qualified Code(s): I50.43 - Acute on chronic combined systolic (congestive) and diastolic (congestive) heart failure Permanent problem details: Biventricular heart failure. EF 40 to 45%, (3) CHF (congestive heart failure): Status: Acute Qualifiers: Heart failure chronicity: chronic Heart failure type: systolic Qualified Code(s): I50.22 - Chronic systolic (congestive) heart failure Permanent problem details: Biventricular, systolic and diastolic (4) Pulmonary HTN: Status: Acute (5) S/P TAVR (transcatheter aortic valve replacement): Status: Acute (6) Bradycardia: Status: Acute (7) Ventricular tachycardia: Status: Acute Permanent problem details: Status post AICD placement (8) Claudication of both lower extremities: Status: Acute (9) GERD (gastroesophageal reflux disease): Status: Acute (10) Peripheral neuropathy: Status: Inactive (11) Severe mitral regurgitation: Status: Acute Reason for Visit Reason for Visit: bilateral leg pain Brief History: Roland Diaz is a 86 year old male carries history of diastolic congestive heart failure grade 2 diastolic dysfunction, severe aortic valve stenosis, mitral valve regurgitation presented today with chief complaint of worsening of shortness of breath and weight gain.? Of note, patient was recently transferred to [facility] for hematemesis where no source of bleeding was identified, established coronary disease status post 4 stents, severe aortic valve stenosis status post TAVR, history of VT s/p AICD, on amiodarone for V. tach.? Patient had [facility] single-chamber ICD. Patient is stating that at [facility] EGD and colonoscopy did not reveal any active source of bleeding, he was discharged with recommendations to follow-up with the divisional human resources director.? Patient is stating that his mitral valve could not be replaced because of severe calcification as well. Today patient is presented to the hospital because of excessive weight gain, burning sensation in his legs.? Patient is stating that he watches his diet he tries to drink less than 2 L a day, watches his sodium intake he has not experienced any chest pain however experiencing severe burning sensation in his legs with weight gain, patient is stating this time his legs are swollen like never before, he has been compliant with his Bumex 2 mg daily. In the ER he has been diagnosed with diastolic congestive heart failure exacerbation, he was given diuretics 80 mg of Lasix, acute on chronic kidney disease with worsening of creatinine 2.6 noted. Hospital Course Hospital Course Patient performed to the hospital further evaluation and management. On admission he was found to be in mild acute decompensated heart failure along with acute on chronic kidney disease. It is believed his JOSAFAT was secondary to cardiorenal syndrome. He was started on aggressive IV diuresis. He responded well to the treatment and his lower limb swelling and renal functions improved. On admission he was also found to have elevated D-dimer. PE was ruled out with negative VQ scan, lower limb Dopplers were negative for DVT. Repeat echocardiogram was done which showed an EF of 40 to 45%, moderately dilated and hypokinetic RV, biatrial enlargement, severe MR, normal functioning bioprosthetic aortic valve along with moderate to severe TR and severe pulmonary hypertension. During hospitalization his hemoglobin remained stable. He is been discharged hemodynamically stable condition on oral Lasix 40 mg twice daily along with metolazone 2.5 mg every third day as needed. He is advised to follow-up with his cardiology team within next 2 weeks, see his primary care provider within next 1 week for repeat BMP. Physical Exam Narrative: Pleasant cooperative male With active signs of congestive heart failure Bilateral extremity edema Extending all the way up to his knees No genital swelling Abdomen is soft Loud S1, S2 with pansystolic murmur Abdomen soft Currently patient is saturating well on room air Awake and alert Nonfocal neuro exam Nephews at the bedside Patient is able to void urine in the urinal Multiple petechiae all over his extremities Discharge Data Studies Completed and Pending Completed Studies During Hospitalization Category Date Time Status XR chest 1V portable [id number] Stat Exams 11/30/21 23:29 Completed NM pul vent and perfus* [id number] Routine Nuc Med 12/02/21 07:00 Completed CV. echo complete* [id number] Routine Ultrasound 12/01/21 06:36 Completed US arterial duplex lower extremity bilat [CV arterial Ultrasound 12/01/21 06:56 [place] [id number]] Routine US venous duplex lower extremity bilat [CV venous Ultrasound 12/01/21 20:38 [place] [id number]] Routine Radiology Impressions Chest X-Ray 11/30/21 23:29 IMPRESSION: 1. Cardiomegaly. 2. Emphysematous changes. 3. Trace bilateral pleural effusions. 4. Bibasilar atelectasis. Duplex Scan Lower Extremity Artery 12/01/21 06:56 IMPRESSION: No stenosis or occlusion. Venous Duplex 12/01/21 20:38 IMPRESSION: No evidence of deep vein thrombosis. Pulmonary Perfusion Imaging 12/02/21 07:00 IMPRESSION: 1. Low probability for pulmonary embolus. Echocardiogram CONCLUSIONS ?Technically limited quality echocardiogram because of poor?ultrasonic windows. ?LV systolic function is mildly reduced with EF of 40 to 45%. ?RV is mild to moderately hypokinetic. ?Biatrial enlargement. ?Severe mitral regurgitation ?Bioprosthetic aortic valve is seen.? DVI 0.3.? Normally?functioning ?Moderate to severe tricuspid regurgitation.? Severe pulmonary?hypertension ?Compared to prior echocardiogram from 2020, LV systolic function?is mildly reduced now.? Patient now has bioprosthetic aortic?valve.? Patient also has moderate to severe tricuspid?regurgitation ?Ceferino Arias MD ?(Electronically Signed) ?Final Date:? ? ? 01 December 2021 ? 12:52 Laboratory Results WBC 4.4 10^3/uL (4.0-10.0) 12/03/21 04:37 RBC 2.91 10^6/uL (4.1-5.3) L 12/03/21 04:37 Hgb 8.3 g/dL (11.7-16.6) L 12/03/21 04:37 Hct 27.5 % (42.0-52.0) L 12/03/21 04:37 MCV 94.5 fl (80-94) H 12/03/21 04:37 MCH 28.5 pg (28.0-34.0) 12/03/21 04:37 MCHC 30.2 g/dL (30.0-36.0) D 12/03/21 04:37 RDW 17.1 % (12.1-15.1) H 12/03/21 04:37 Plt Count 128 10^3/cmm (130-400) L 12/03/21 04:37 MPV 9.9 fL (7.4-10.4) 12/03/21 04:37 Neut % (Auto) 73.4 % 12/03/21 04:37 Lymph % (Auto) 7.3 % 12/03/21 04:37 Rhea % (Auto) 13.2 % 12/03/21 04:37 Eos % (Auto) 4.8 % 12/03/21 04:37 Baso % (Auto) 1.1 % 12/03/21 04:37 Neut # (Auto) 3.24 10^3/uL (1.8-7.7) 12/03/21 04:37 Lymph # (Auto) 0.3 10^3/uL (0.8-4.8) L 12/03/21 04:37 Rhea # (Auto) 0.6 10^3/uL (0.2-0.9) 12/03/21 04:37 Eos # (Auto) 0.2 10^3/uL (0.0-0.8) 12/03/21 04:37 Baso # (Auto) 0.1 10^3/uL (0.0-0.1) 12/03/21 04:37 Nucleated RBC % (auto) 0 % 12/03/21 04:37 Nucleated RBCs # 0.0 /100WBC 12/03/21 04:37 D-Dimer 5.76 ug/mIFEU (0-0.59) H 12/01/21 00:00 Sodium 139 mmol/L (136-145) 12/03/21 04:37 Potassium 3.6 mmol/L (3.5-5.1) 12/03/21 04:37 Chloride 98 mmol/L (98-107) 12/03/21 04:37 Carbon Dioxide 29 mmol/L (22-29) 12/03/21 04:37 Anion Gap 15.6 (5-19) 12/03/21 04:37 BUN 35 mg/dL (8-23) H 12/03/21 04:37 Creatinine 2.2 mg/dL (0.7-1.2) H 12/03/21 04:37 GFR Calculation Not Reportable 12/03/21 04:37 Glucose 97 mg/dL (65-115) 12/03/21 04:37 Estimat Average Glucose 88 12/02/21 04:43 Hemoglobin A1c 4.7 % (4.0-6.0) 12/02/21 04:43 Calculated Osmolality 296 mOsm/kg (285-295) H 12/03/21 04:37 Calcium 8.3 mg/dL (8.5-10.5) L 12/03/21 04:37 Magnesium 2.2 mg/dL (1.7-2.3) 12/02/21 04:43 Iron 21 ug/dL (59-158) L 12/01/21 05:49 TIBC 296 mcg/dl 12/01/21 05:49 % Saturation 7.0 % (20-50) L 12/01/21 05:49 Unsat Iron Binding 275 ug/dL (112-347) 12/01/21 05:49 Total Bilirubin 0.3 mg/dL (0.15-1.2) 12/03/21 04:37 AST 13 U/L (0-40) 12/03/21 04:37 ALT 10 U/L (0-41) 12/03/21 04:37 Alkaline Phosphatase 103 U/L (40-130) 12/03/21 04:37 Troponin T Baseline 77 ng/L (0-15) H 12/01/21 00:00 Troponin T 120 Minute 72.60 ng/L (0-15) H 12/01/21 01:45 Delta Troponin T -4.40 ABS# (0-10) L 12/01/21 01:45 Troponin T Hi Sens 6Hr 71.73 ng/L (0-15) H 12/01/21 05:49 Troponin T Hi Sens 6Hr Delta -5.27 ng/L (0-12) L 12/01/21 05:49 NT-Pro-B Natriuret Pep 56738 pg/mL (0-450) H 12/01/21 00:00 Total Protein 5.9 g/dL (6.6-8.7) L 12/03/21 04:37 Albumin 3.3 g/dL (3.5-5.2) L 12/03/21 04:37 Globulin 2.6 g/dL (1.3-4.6) 12/03/21 04:37 Triglycerides 43 mg/dL (0-150) 12/02/21 04:43 Cholesterol 110 mg/dL (0-200) 12/02/21 04:43 LDL Cholesterol, Calc 49 mg/dL (50-129) L 12/02/21 04:43 Total VLDL Cholesterol 9 mg/dL (0-30) 12/02/21 04:43 HDL Cholesterol 52 mg/dL (60-100) L 12/02/21 04:43 Cholesterol/HDL Ratio 2.12 mg/dL (1.0-5.00) 12/02/21 04:43 TSH 1.19 uIU/mL (0.27-4.20) 12/01/21 05:49 Vitals Last Vital Signs Temp 98.2 F 12/03/21 11:13 Pulse 69 12/03/21 11:13 Resp 20 H 12/03/21 11:13 BP 136/72 12/03/21 11:13 Pulse Ox 95 12/03/21 11:13 O2 Del Method 12/03/21 11:13 O2 Flow Rate 2 12/02/21 20:00 Discharge Plan Discharge Patient Disposition: Home Condition: Stable Prescriptions: New metolazone 5 mg tablet 2.5 mg PO Q72H Qty: 15 0RF gabapentin 100 mg Capsule 100 mg PO BID Qty: 60 0RF furosemide [Lasix] 40 mg tablet 40 mg PO BID Qty: 60 0RF Continued docusate sodium [Colace] 100 mg capsule 100 mg PO BID PRN (Reason: Constipation) tamsulosin 0.4 mg capsule 0.4 mg PO DAILY aspirin [Adult Low Dose Aspirin] 81 mg tablet,delayed release (DR/EC) 81 mg PO DAILY atorvastatin 40 mg tablet 40 mg PO DAILY Qty: 90 3RF nitroglycerin [Nitrostat] 0.4 mg tablet, sublingual 0.4 mg SUBLINGUAL Q5M PRN (Reason: Chest Pain) Qty: 25 3RF pantoprazole 40 mg tablet,delayed release (DR/EC) 40 mg PO DAILY Qty: 90 3RF amiodarone 200 mg tablet 200 mg PO DAILY Qty: 90 3RF finasteride 5 mg tablet 5 mg PO DAILY ondansetron 8 mg tablet,disintegrating 8 mg PO 3XD PRN (Reason: Nausea And Vomiting) hydralazine 25 mg tablet 75 mg PO 3XD ascorbic acid (vitamin C) [Vitamin C] 1,000 mg Tablet 1,000 mg PO DAILY calcium carbonate 500 mg calcium (1,250 mg) Tablet,Chewable 500 mg PO TID PRN (Reason: Indigestion) ferrous sulfate 325 mg (65 mg iron) Tablet 325 mg PO DAILY Rx Instructions: with breakfast fluticasone propionate 50 mcg/actuation Bapchule,Suspension 1 spray INTRANASAL DAILY Rx Instructions: administer into each nostril guaifenesin 600 mg Tablet Extended Release 600 mg PO BID PRN (Reason: Cough) polyethylene glycol 3350 [Miralax] 17 gram Powder In Packet 17 g PO DAILY sennosides-docusate sodium [Senna with Docusate Sodium] 8.6-50 mg Tablet 1 tab-cap PO DAILY vitamin A 10,000 unit Capsule 10,000 unit PO DAILY cyanocobalamin (vitamin B-12) [Vitamin B-12] 250 mcg Tablet 250 mcg PO DAILY Discontinued bumetanide 2 mg tablet 2 mg PO DAILY Discharge Orders: Discharge Order (Routine); Ordered 12/03/21 Ordered By: Ifeanyi Yoo Referrals: Alla Sen FNP [Nurse Practitioner] - 2 weeks Mainor Gan NP [Nurse Practitioner] - 7-10 days Discharge Diet: Cardiac Discharge Activity: Resume usual activity and Increase activity as tolerated Patient Instructions: Opioid Safety Activity Restrictions/Additional Instructions: Repeat BMP with a primary care provider within next 1 week. Take Lasix 40 mg twice daily. Take metolazone 2.5 mg every third day. Please follow-up with your cardiology team within the next 2 weeks. Discharge Attestations Time Spent in Discharge Care*: greater than 30 min Specific Discharge Activities: educating patient, educating and/or supporting family/caregiver, discussing with rn case mgr/social workers/dc planners, documenting/other paperwork and evaluating patient/reviewing data Status at Discharge: Cognitive status at discharge: cognitively intact , Behavioral status at discharge: cooperative , Functional status at discharge: uses cane/walker , Overall status at discharge: patient is back to baseline Quality Metrics Clinical Quality Measures [ No reported AMI, CVA or VTE this stay] Coding Level of Care Code Acute Chg FW DC note Diagnoses Acute kidney injury superimposed on chronic kidney disease N17.9; N18.9 Acute exacerbation of CHF (congestive heart failure) I50.43 Heart failure type: combined systolic and diastolic CHF (congestive heart failure) I50.22 Heart failure chronicity: chronic Heart failure type: systolic Pulmonary HTN I27.20 S/P TAVR (transcatheter aortic valve replacement) Z95.2 Bradycardia R00.1 Ventricular tachycardia I47.2 Claudication of both lower extremities I73.9 GERD (gastroesophageal reflux disease) K21.9 Peripheral neuropathy G62.9 Severe mitral regurgitation I34.0
== END 2021-12-03 13:25 | disposition home or self-care (01) ==
LOC: ER 12-01 01:26 → MEDSURG 12-01 08:22
PROVIDERS: Admitting Provider Internal Medicine; Emergency Provider Physician Assistant; Visit Provider Student in an Organized Health Care Education/Training Program
DX: I50.43 Acute on chronic combined systolic (congestive) and diastolic (congestive) heart failure (principal); N17.9 Acute kidney failure, unspecified; N18.9 Chronic kidney disease, unspecified; I27.0 Primary pulmonary hypertension; I25.5 Ischemic cardiomyopathy; E78.5 Hyperlipidemia, unspecified; E03.9 Hypothyroidism, unspecified; K21.9 Gastro-esophageal reflux disease without esophagitis; I25.10 Atherosclerotic heart disease of native coronary artery without angina pectoris; G62.9 Polyneuropathy, unspecified; I73.9 Peripheral vascular disease, unspecified; R00.1 Bradycardia, unspecified; I08.1 Rheumatic disorders of both mitral and tricuspid valves; Z86.73 Personal history of transient ischemic attack (TIA), and cerebral infarction without residual deficits; Z95.810 Presence of automatic (implantable) cardiac defibrillator; Z95.1 Presence of aortocoronary bypass graft; Z95.5 Presence of coronary angioplasty implant and graft; Z95.3 Presence of xenogenic heart valve; Z82.49 Family history of ischemic heart disease and other diseases of the circulatory system
CPT/HCPCS: 36415; 71045; 78014; 80053; 80061; 83036; 83540; 83550; 83735; 83880; 84443; 84484; 85025; 85378; 93005; 93306; 93925; 93970; 96372; 96374; 96376; 97161; 99285; A9540; A9567; G0378; J1644; J1940

== ENCOUNTER → 2021-12-06 10:48 | Outpatient (BNVA) | payer MEDICARE, SELFPAY | PROVIDERS: PCP Nurse Practitioner Family; Visit Provider Nurse Practitioner Family | DX: N17.9 Acute kidney failure, unspecified (principal); N18.9 Chronic kidney disease, unspecified; I50.9 Heart failure, unspecified; I95.9 Hypotension, unspecified | CPT/HCPCS: 80048 ==

== ENCOUNTER → 2021-12-10 13:38 | Outpatient (BNVA) | payer MEDICARE, SELFPAY | PROVIDERS: PCP Nurse Practitioner Family; Visit Provider Nurse Practitioner Family | DX: I11.0 Hypertensive heart disease with heart failure (principal); I50.43 Acute on chronic combined systolic (congestive) and diastolic (congestive) heart failure; E78.5 Hyperlipidemia, unspecified | CPT/HCPCS: 36415; 80048; 83880; 99213; 99214 ==

== ENCOUNTER → 2021-12-23 15:37 | Outpatient (BNVA) | payer MEDICARE, SELFPAY | PROVIDERS: PCP Clinical Nurse Specialist Adult Health; Visit Provider Clinical Nurse Specialist Adult Health | DX: I50.22 Chronic systolic (congestive) heart failure (principal); D64.9 Anemia, unspecified | CPT/HCPCS: 80053; 83880; 85025 ==

== ENCOUNTER → 2022-01-21 10:43 | Outpatient (BNVA) | payer MEDICARE, SELFPAY | PROVIDERS: PCP Clinical Nurse Specialist Adult Health; Visit Provider Internal Medicine Cardiovascular Disease | DX: I13.0 Hypertensive heart and chronic kidney disease with heart failure and stage 1 through stage 4 chronic kidney disease, or unspecified chronic kidney disease (principal); N18.9 Chronic kidney disease, unspecified; I50.22 Chronic systolic (congestive) heart failure; I25.5 Ischemic cardiomyopathy; I25.10 Atherosclerotic heart disease of native coronary artery without angina pectoris; Z95.5 Presence of coronary angioplasty implant and graft; Z98.890 Other specified postprocedural states; Z86.79 Personal history of other diseases of the circulatory system; I27.20 Pulmonary hypertension, unspecified | CPT/HCPCS: 99215 ==

== ENCOUNTER 2022-02-02 19:59 | Inpatient (IN) | payer MEDICARE, SELFPAY ==
[2022-02-02] VITALS (7 sets, daily range): BP systolic 125–149; BP diastolic 62–78; PULSE 51–67; RESP 18–23; TEMP 36.6–36.8; O2SAT 93–98; BMI 26.0
--- NOTE | 2022-02-02 20:24 | ECG_ITS ---
[facility] Test Date: 2022-02-02 Pat Name: Roland Diaz Department: Room: Gender: Male [employer] Ev[employer] Operator: : [id number] Requested By: Arias Valdovinos Order Number: [id number] Kimberlee MD: Chucho Murray M.D. Measurements Intervals [place] Rate: 52 P: 61 GA: 233 QRS: -23 QRSD: 140 T: 21 QT: 491 QTc: 458 Interpretive Statements SINUS BRADYCARDIA WITH FIRST DEGREE AV BLOCK LEFT BUNDLE BRANCH BLOCK [120+ ms QRS DURATION, 80+ ms Q/S IN V1/V2, 85+ ms R IN I/aVL/V5/V6] Compared to ECG 12/01/2021 06:21:28 Ectopic atrial rhythm no longer present Myocardial infarct finding no longer present Electronically Signed On 02-02-2022 22:23:08 RETURN CLERK by Chucho Murray M.D. [email or web address]
--- NOTE | 2022-02-02 20:24 | XRR_ITS ---
PROCEDURE INFORMATION: Exam: XR Chest Exam date and time: 02/02/2022 9:38 PM Age: 86 years old Clinical indication: Other: Palpitaitons; Prior surgery; Surgery date: 6+ months; Surgery type: Pacemaker; Additional info: Palpitations TECHNIQUE: Imaging protocol: Radiologic exam of the chest. Views: 1 view. COMPARISON: CR (CHEST, ) 11/30/2021 11:34 PM FINDINGS: Tubes, catheters and devices: Pacemaker. Lungs: Left lower lobe atelectasis versus minimal infiltrate. Emphysematous changes suspected. Pleural spaces: Unremarkable. No pleural effusion. No pneumothorax. Heart/Mediastinum: Cardiomegaly. Bones/joints: Unremarkable. XR/XR chest 1V portable [id number] IMPRESSION: 1. Cardiomegaly. 2. Left lower lobe atelectasis versus minimal infiltrate. 3. Emphysematous changes suspected.
--- NOTE | 2022-02-02 20:26 | ED_ITS ---
HPI - Chest Pain General: Chief Complaint: Chest Pain Stated Complaint: palpitations Time Seen by Provider: 02/02/22 20:03 Source: patient Mode of arrival: EMS Limitations: no limitations History of Present Illness: This patient was transported from his home to our emergency department via EMS. He called EMS because he had sensation of palpitations and that his heart was fluttering in his chest. He states the symptoms lasted for at least an hour or more. They have resolved upon arrival to the emergency department. He denied any chest pain per se. He denied any shortness of breath. On EMSs arrival he was given nitroglycerin which caused him to become slightly hypotensive which resolved spontaneously. He has a history of coronary artery disease as well as congestive heart failure hyperten loida and has gone undergone various procedures for his cardiovascular system to include aortic valve replacement as well as aortic stenting and renal artery stenting. He says he has been taking his medications but he has had approximately 30 pound weight loss and subsequently has had some issues with his potassium becoming too low. He continues to take his Lasix as prescribed. He states his defibrillator has not fired. Pertinent past history: coronary artery disease and known aortic aneurysm Onset: during rest Associated symptoms: Reports nausea and palpitations; Deny abdominal pain, dyspnea, fever(s), syncope or vomiting Review of Systems Const: Denies: fever(s) or chills Eyes: Denies: change in vision ENMT: Denies: throat pain, odynophagia, nasal discharge, nasal congestion or nasal obstruction Card: Reports: palpitations; Denies: edema, lightheadedness, syncope or pre-syncope Resp: Denies: dyspnea, productive cough or non-productive cough GI: Reports: nausea; Denies: abdominal pain, vomiting or diarrhea : Denies: flank pain, difficulty urinating, dysuria or urinary frequency Musc: Denies: neck pain, back pain or extremity pain Skin/Breast: Denies: rash, pruritus or erythema Neuro: Denies: headache(s), numbness in extremities or weakness in extremities Psych: Denies: anxiety or depression Endo: Denies: polyuria or polydipsia [facility] ED PFSH: Medical History Abdominal aortic aneurysm (AAA) 4.3?4.3 approximately 5.04?5.04 distally Aortic stenosis ASHD (arteriosclerotic heart disease) Bradycardia CHF (congestive heart failure) Biventricular, 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 Cognitive dysfunction Elevated PSA 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 Essential hypertension GERD (gastroesophageal reflux disease) Heart block atrioventricular History of nonmelanoma skin cancer Hyperlipidemia Hypothyroidism Ischemic cardiomyopathy EF 40 to 45%?12/01/2021 LVH (left ventricular hypertrophy) Peripheral neuropathy Prostate cancer Prostatic hypertrophy Pulmonary HTN Severe mitral regurgitation SOB (shortness of breath) SVT (supraventricular tachycardia) TIA (transient ischemic attack) Ventricular tachycardia Status post AICD placement Surgical History S/P angioplasty with stent Coronary disease status post 3 stents S/P implantation of automatic cardioverter/defibrillator (AICD) [employer]ING[employer] 08/07 S/P TAVR (transcatheter aortic valve replacement) Status post endovascular aneurysm repair (EVAR) Family History Father CAD (coronary artery disease) Mother CAD (coronary artery disease) CHF (congestive heart failure) Brother Parkinson disease Sister Fibromyalgia Other Cancer Social History Smoking and tobacco status: never smoked Alcohol intake: never Lives independently: Yes Marital status: / service: No Current occupational status: retired History of recent travel: No Current gender identity: Male Gillian/Buddhism: Evangelical Physical Exam Narrative: EXAM NARRATIVE: Patient is awake alert comfortable and in no acute distress. Answers questions appropriately. Const: COMMON NORMALS: no acute distress, average body habitus and patient oriented x3 GENERAL APPEARANCE: cooperative and comfortable HENMT: COMMON NORMALS: normocephalic, Normal nasal mucous membranes and turbinates present and moist oral mucous membranes HEAD & SCALP: norm ocephalic NOSE: Normal nasal mucous membranes and turbinates present Eye: COMMON NORMALS: Equal, round and reactive pupils present, EOMs intact bilaterally and conjunctivae normal CONJUNCTIVA: Yes conjunctivae normal PUPIL: Yes Equal, round and reactive pupils present Neck/C-Spine: COMMON NORMALS: full ROM, no JVD and No carotid bruits Chest: COMMONS NORMALS: normal inspection of the chest Resp: COMMON NORMALS: normal respiratory effort, No use of accessory muscles, clear to auscultation bilaterally and percussion normal AUSCULTATION: clear to auscultation bilaterally PERCUSSION: percussion normal Cardio: COMMON NORMALS: no JVD, regular rate, regular rhythm, No murmurs present (Cardio) and Peripheral pulses 2+ throughout RATE: regular rate RHYTHM: regular rhythm PERIPHERAL PULSES: Peripheral pulses 2+ throughout GI: COMMON NORMALS: Normal to inspection, nondistended, normoactive bowel sounds present, Soft to palpation, non-tender and No hepatosplenomegaly present PALPATION: Yes Soft to palpation and Yes No hepatosplenomegaly present Back/Pelvis: COMMON NORMALS: thoracic and lumbar spine normal to inspection, no thoracic nor lumbar tenderness and thoraco-lumbar ROM normal Extremity: COMMON NORMALS: normal to inspection, full ROM, capillary refill normal, no calf tenderness and no pedal edema Neuro: COMMON NORMALS: patient oriented x3, moves all extremities, no focal motor deficits and no sensory deficits noted CRANIAL NERVES: Yes CN normal except as noted SPEECH: speech normal Psych: COMMON NORMALS: mental status grossly normal Skin: COMMON NORMALS: no rashes or lesions noted and turgor normal GENERAL SKIN EXAM: no rashes or lesions noted and turgor normal Course Reevaluation(s): Reevaluation #1: Patient remained stable. I informed him of the current condition and need for potassium replacement. Still remains in sinus rhythm with first-degree AV block. Time: 21:20 Consultations: Consultation #1: Discussed with overnight hospitalist who agreed to place him in observation and continued potassium replacement. Time: 21:20 Vital Signs: Vital signs: Vital Signs Temperature 98.3 F 02/02/22 20:01 Pulse Rate 53 L 02/02/22 20:01 Respiratory Rate 18 02/02/22 20:01 Blood Pressure 125/69 02/02/22 20:01 Pulse Oximetry 95 02/02/22 20:01 Oxygen Delivery Me thod 02/02/22 20:01 MDM - Chest Pain Medical Decision Making Patient with a known history of diffuse atherosclerotic disease with known heart failure, aortic valve replacement aortic aneurysm stenting etc. who comes in with a history of palpitations without overt chest pain. He takes diuretics in addition to his other medication because of his congestive heart failure and valvular dysfunction. Potassium was noted to be 2.3 here with first-degree AV block and sinus bradycardia. So had an elevation in his initial troponin which review of his chart reveals he has had troponin elevations in the past but is not clear if this is because of chronic myocardial dysfunction or ischemia at this time however his EKG does not show any acute ischemic changes. We have initiated potassium replacement in the emergency department we will be placing him in observation to continue that process. Medical Records I reviewed the patient's medical records. Lab Data I reviewed the patient's lab results. : 02/02/22 19:45 02/02/22 19:45 Radiology Impressions Chest X-Ray 02/02/22 20:24 IMPRESSION: 1. Cardiomegaly. 2. Left lower lobe atelectasis versus minimal infiltrate. 3. Emphysematous changes suspected. Laboratory Results WBC 6.0 10^3/uL (4.0-10.0) 02/02/22 19:45 RBC 4.30 10^6/uL (4.1-5.3) 02/02/22 19:45 Hgb 12.2 g/dL (11.7-16.6) 02/02/22 19:45 Hct 37.7 % (42.0-52.0) L 02/02/22 19:45 MCV 87.7 fl (80-94) 02/02/22 19:45 MCH 28.4 pg (28.0-34.0) 02/02/22 19:45 MCHC 32.4 g/dL (30.0-36.0) 02/02/22 19:45 RDW 19.5 % (12.1-15.1) H 02/02/22 19:45 Plt Count 225 10^3/cmm (130-400) 02/02/22 19:45 MPV 9.3 fL (7.4-10.4) 02/02/22 19:45 Neut % (Auto) 72.1 % 02/02/22 19:45 Lymph % (Auto) 9.7 % 02/02/22 19:45 Rapides % (Auto) 14.6 % 02/02/22 19:45 Eos % (Auto) 2.2 % 02/02/22 19:45 Baso % (Auto) 1.2 % 02/02/22 19:45 Neut # (Auto) 4.31 10^3/uL (1.8-7.7) 02/02/22 19:45 Lymph # (Auto) 0.6 10^3/uL (0.8-4.8) L 02/02/22 19:45 Rapides # (Auto) 0.9 10^3/uL (0.2-0.9) 02/02/22 19:45 Eos # (Auto) 0.1 10^3/uL (0.0-0.8) 02/02/22 19:45 Baso # (Auto) 0.1 10^3/uL (0.0-0.1) 02/02/22 19:45 Nucleated RBC % (auto) 0 % 02/02/22 19:45 Nucleated RBCs # 0.0 /100WBC 02/02/22 19:45 Sodium 127 mmol/L (136-145) L 02/02/22 19:45 Potassium 2.3 mmol/L (3.5-5.1) L* 02/02/22 19:45 Chloride 82 mmol/L (98-107) L 02/02/22 19:45 Carbon Dioxide 35 mmol/L (22-29) H 02/02/22 19:45 Anion Gap 12.3 (5-19) 02/02/22 19:45 BUN 47 mg/dL (8-23) H 02/02/22 19:45 Creatinine 2.3 mg/dL (0.7-1.2) H 02/02/22 19:45 GFR Calculation Not Reportable 02/02/22 19:45 Glucose 135 mg/dL (65-115) H 02/02/22 19:45 Calculated Osmolality 278 mOsm/kg (285-295) L 02/02/22 19:45 Calcium 9.4 mg/dL (8.5-10.5) 02/02/22 19:45 Total Bilirubin 0.3 mg/dL (0.15-1.2) 02/02/22 19:45 AST 19 U/L (0-40) 02/02/22 19:45 ALT 11 U/L (0-41) 02/02/22 19:45 Alkaline Phosphatase 158 U/L (40-130) H 02/02/22 19:45 Troponin T Baseline 150 ng/L (0-15) H* 02/02/22 19:45 Total Protein 7.7 g/dL (6.6-8.7) 02/02/22 19:45 Albumin 4.1 g/dL (3.5-5.2) 02/02/22 19:45 Globulin 3.6 g/dL (1.3-4.6) 02/02/22 19:45 EKG Data EKG 1: I personally reviewed and interpreted this EKG as follows: Interpretation: EKG reveals a ventricular rate of 52 bpm consistent with sinus bradycardia. Is a prolonged OR interval at 233 ms consistent with a first-degree AV block. Has QRS duration of 140 ms a QTC of 471 ms. He has normal axis. He has evidence suggestive of an incomplete bundle branch block. His EKG appears to be unchanged from prior tracings within our system without any acute ST-T wave changes noted. Discharge Plan Discharge Patient Disposition: Placed in Observation Clinical Impression: Hypokalemia, ASHD (arteriosclerotic heart disease), Hyponatremia Condition: Stable Prescriptions: No Action docusate sodium [Colace] 100 mg capsule 100 mg PO BID PRN (Reason: Constipation) tamsulosin 0.4 mg capsule 0.4 mg PO DAILY Hold Instructions: Doctor's Order aspirin [Adult Low Dose Aspirin] 81 mg tablet,delayed release (DR/EC) 81 mg PO DAILY atorvastatin 40 mg tablet 40 mg PO DAILY Qty: 90 3RF nitroglycerin [Nitrostat] 0.4 mg tablet, sublingual 0.4 mg SUBLINGUAL Q5M PRN (Reason: Chest Pain) Qty: 25 3RF pantoprazole 40 mg tablet,delayed release (DR/EC) 40 mg PO DAILY Qty: 90 3RF amiodarone 200 mg tablet 200 mg PO DAILY Qty: 90 3RF finasteride 5 mg tablet 5 mg PO DAILY ondansetron 8 mg tablet,disintegrating 8 mg PO 3XD PRN (Reason: Nausea And Vomiting) Qty: 20 0RF guaifenesin 600 mg tablet extended release 12hr 600 mg PO Q12H PRN (Reason: congestion) Qty: 60 0RF Lasix 40 mg tablet 40 mg PO DIRECTED Rx Instructions: Alternate 40mg one day and 20mg next day potassium chloride 20 mEq tablet extended release 20 meq PO DIRECTED Rx Instructions: Alternate 20mEq one day and 10mEq next day gabapentin 100 mg capsule 100 mg PO BID Qty: 60 0RF hydralazine 25 mg tablet 75 mg PO BID Qty: 90 3RF ferrous sulfate 325 mg (65 mg iron) tablet 325 mg PO DAILY Qty: 90 1RF Rx Instructions: with breakfast metolazone 5 mg tablet 2.5 mg PO Q72H Qty: 15 0RF ascorbic acid (vitamin C) [Vitamin C] 1,000 mg Tablet 1,000 mg PO DAILY calcium carbonate 500 mg calcium (1,250 mg) Tablet,Chewable 500 mg PO TID PRN (Reason: Indigestion) sennosides-docusate sodium [Senna with Docusate Sodium] 8.6-50 mg Tablet 1 tab-cap PO DAILY vitamin A 10,000 unit Capsule 10,000 unit PO DAILY cyanocobalamin (vitamin B-12) [Vitamin B-12] 250 mcg Tablet 250 mcg PO DAILY fluticasone propionate 50 mcg/actuation spray,suspension 1 spray INTRANASAL DAILY PRN Rx Instructions: administer into each nostril polyethylene glycol 3350 [Miralax] 17 gram powder in packet 17 g PO DAILY PRN Referrals: Mainor Gan CHANGE CONTROL MANAGER [Primary Care Provider] - Coding Level of Care Code ED Mold Builder for Chg Fwd Exam Comprehensive
[2022-02-02 20:35] LABS: Basophils # 0.1 10^3/uL (0.0-0.1); Basophils % 1.2 %; Eosinophils # 0.1 10^3/uL (0.0-0.8); Eosinophils % 2.2 %; Hematocrit 37.7 % (42.0-52.0); Hemoglobin 12.2 g/dL (11.7-16.6); Lymphocytes # 0.6 10^3/uL (0.8-4.8); Lymphocytes % 9.7 %; Mean Corpuscular HGB Conc 32.4 g/dL (30.0-36.0); Mean Corpuscular Hemoglobin 28.4 pg (28.0-34.0); Mean Corpuscular Volume 87.7 fl (80-94); Mean Platelet Volume 9.3 fL (7.4-10.4); Monocytes # 0.9 10^3/uL (0.2-0.9); Monocytes % 14.6 %; Neutrophils # 4.31 10^3/uL (1.8-7.7); Neutrophils % 72.1 %; Nucleated Red Blood Cells % 0 %; Platelet Count 225 10^3/cmm (130-400); Red Cell Distribution Width 19.5 % (12.1-15.1)
[2022-02-02 20:52] LABS: Alanine Aminotransferase 11 U/L (0-41); Albumin Level 4.1 g/dL (3.5-5.2); Alkaline Phosphatase 158 U/L (40-130); Anion Gap 12.3 (5-19); Aspartate Amino Transferase 19 U/L (0-40); Blood Urea Nitrogen 47 mg/dL (8-23); Calcium 9.4 mg/dL (8.5-10.5); Carbon Dioxide 35 mmol/L (22-29); Chloride 82 mmol/L (98-107); Globulin 3.6 g/dL (1.3-4.6); Glucose 135 mg/dL (65-115); Osmolality Calculated 278 mOsm/kg (285-295); Sodium 127 mmol/L (136-145); Total Bilirubin 0.3 mg/dL (0.15-1.2); Total Protein 7.7 g/dL (6.6-8.7)
[2022-02-02 20:59] LABS: Creatinine Clr Calc Pharmacy 25.7963
[2022-02-02 21:01] LABS: Potassium 2.3 mmol/L (3.5-5.1)
[2022-02-02 21:02] LABS: Troponin(5th) Baseline 150 ng/L (0-15)
[2022-02-02] MEDS: magnesium sulfate premix 2 GM/50 ML PIGGYBACK IV (21:17)
[2022-02-02] MEDS: potassium chloride premix 100 ML 50 MEQ IV (21:17)
[2022-02-02 21:26] LABS: Magnesium 2.5 mg/dL (1.7-2.3)
[2022-02-02] MEDS: potassium bicarb 25 mEq Tablet 50 MEQ PO (21:28)
--- NOTE | 2022-02-02 21:35 | P.HP_ITS ---
Providers/Chief Complaint Admitting Physician: Sanjeev Fry Primary Care Provider: Mainor Gan Chief Complaint: chest pain History of Present Illness Pleasant 81-year-old gentleman with cardiovascular disease, including requiring stenting, ischemic cardiomyopathy and CHF, ventricular tachycardia, ICD, came in for evaluation to ER due to palpitations at home. He states that at 1 point he felt very lightheaded like he was about to faint and that his face got hot. He states that his blood pressure cuff at the time could not detect the heart rate reporting only low . He denies any chest pain or pressure. In ER he is noted to be in sinus bradycardia in the 50s. He is noted hypokalemic, potassium 2.3. Sodium 127. BUN 47, creatinine 2.3 with CKD. Troponin 150, EKG with sinus bradycardia, old left bundle branch block. Review of Systems Const: Denies: fever(s), chills, body aches or malaise Eyes: Denies: change in vision, eye discomfort or eye redness ENMT: Denies: throat pain, oral sores or ear or mastoid pain Card: Reports: palpitations and pre-syncope; Denies: chest pain, edema or dyspnea on exertion Resp: Denies: dyspnea, productive cough, change in phlegm color or hemoptysis GI: Denies: abdominal pain, nausea, vomiting, diarrhea, constipation, hematochezia or melena : Denies: flank pain, difficulty urinating, urinary frequency or hematuria Musc: Denies: back pain, joint swelling or joint redness Skin/Breast: Denies: rash or new lesions Neuro: Denies: headache(s), numbness in extremities, weakness in extremities, dizziness, confusion or seizure-like activity Endo: Denies: polyuria or polydipsia Luis Alfredo/Lymph: Denies: easy bleeding or tender lymph nodes All/Imm: Denies: urticaria or tongue swelling Medications/Allergies Home Medications Medication Instructions Recorded Confirmed Last Taken Type docusate sodium 100 mg capsule 100 mg PO BID PRN Constipation 04/05/19 01/21/22 11/05/20 22:00 History (Colace) tamsulosin 0.4 mg capsule 0.4 mg PO DAILY 04/05/19 01/21/22 10/29/21 History ascorbic acid (vitamin C) 1,000 mg 1,000 mg PO DAILY 11/06/20 01/21/22 10/29/21 History tablet (Vitamin C) aspirin 81 mg tablet,delayed 81 mg PO DAILY 01/22/21 01/21/22 10/29/21 History release (Adult Low Dose Aspirin) amiodarone 200 mg tablet 200 mg PO DAILY #90 tabs 05/21/21 01/21/22 Unknown Rx atorvastatin 40 mg tablet 40 mg PO DAILY #90 tabs 05/21/21 01/21/22 10/29/21 Rx nitroglycerin 0.4 mg sublingual 0.4 mg sublingual Q5M PRN Chest 05/21/21 01/21/22 Unknown Rx tablet (Nitrostat) Pain #25 tabs pantoprazole 40 mg tablet,delayed 40 mg PO DAILY #90 tabs 05/21/21 01/21/22 10/29/21 Rx release finasteride 5 mg tablet 5 mg PO DAILY 06/21/21 01/21/22 10/29/21 History calcium carbonate 500 mg calcium 500 mg PO TID PRN Indigestion 12/01/21 01/21/22 Unknown History (1,250 mg) chewable tablet cyanocobalamin (vitamin B-12) 250 250 mcg PO DAILY 12/01/21 01/21/22 Unknown History mcg tablet (Vitamin B-12) sennosides 8.6 mg-docusate sodium 1 tab-cap PO DAILY 12/01/21 01/21/22 Unknown History 50 mg tablet (Senna with Docusate Sodium) vitamin A 10,000 unit capsule 10,000 unit PO DAILY 12/01/21 01/21/22 Unknown History metolazone 5 mg tablet 2.5 mg PO Q72H #15 tabs 12/10/21 01/21/22 Unknown Rx ferrous sulfate 325 mg (65 mg 325 mg PO DAILY #90 tabs 12/23/21 01/21/22 Unknown Rx iron) tablet gabapentin 100 mg capsule 100 mg PO BID #60 caps 12/23/21 01/21/22 Unknown Rx hydralazine 25 mg tablet 75 mg PO BID #90 tabs 12/23/21 01/21/22 Unknown Rx guaifenesin 600 mg tablet, 600 mg PO Q12H PRN congestion #60 01/07/22 01/21/22 Unknown Rx extended release 12 hr tabs ondansetron 8 mg disintegrating 8 mg PO 3XD PRN Nausea And 01/07/22 01/21/22 Un known Rx tablet Vomiting #20 tabs fluticasone propionate 50 1 spray intranasal DAILY PRN 01/21/22 01/21/22 Unknown History mcg/actuation nasal spray,suspension furosemide 40 mg tablet (Lasix) 40 mg PO DIRECTED 01/21/22 01/21/22 Unknown History polyethylene glycol 3350 17 gram 17 g PO DAILY PRN 01/21/22 01/21/22 Unknown History oral powder packet (Miralax) potassium chloride 20 mEq 20 meq PO DIRECTED 01/21/22 01/21/22 Unknown History tablet,extended release Allergies Allergy/AdvReac Type Severity Reaction Status Date / Time No Known Allergies Allergy Verified 01/07/22 13:40 PFSH Acute PFSH: Medical History Abdominal aortic aneurysm (AAA) 4.3?4.3 approximately 5.04?5.04 distally Aortic stenosis ASHD (arteriosclerotic heart disease) Bradycardia CHF (congestive heart failure) Biventricular, 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 Cognitive dysfunction Elevated PSA 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 Essential hypertension GERD (gastroesophageal reflux disease) Heart block atrioventricular History of nonmelanoma skin cancer Hyperlipidemia Hypothyroidism Ischemic cardiomyopathy EF 40 to 45%?12/01/2021 LVH (left ventricular hypertrophy) Peripheral neuropathy Prostate cancer Prostatic hypertrophy Pulmonary HTN Severe mitral regurgitation SOB (shortness of breath) SVT (supraventricular tachycardia) TIA (transient ischemic attack) Ventricular tachycardia Status post AICD placement Surgical History S/P angioplasty with stent Coronary disease status post 3 stents S/P implantation of automatic cardioverter/defibrillator (AICD) [employer]ING[employer] 08/07 S/P TAVR (transcatheter aortic valve replacement) Status post endovascular aneurysm repair (EVAR) Family History Father CAD (coronary artery disease) Mother CAD (coronary artery disease) CHF (congestive heart failure) Brother Parkinson disease Sister Fibromyalgia Other Cancer Social History Smoking and tobacco status: never smoked Alcohol intake: never Lives independently: Yes Marital status: / service: No Current occupational status: retired History of recent travel: No Current gender identity: Male 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: Jainism Vitals/I&O/Wt Last Vital Signs Temp 98.3 F 02/02/22 20:01 Pulse 53 L 02/02/22 20:01 Resp 18 02/02/22 20:01 BP 125/69 02/02/22 20:01 Pulse Ox 95 02/02/22 20:01 O2 Del Method 02/02/22 20:01 Weight last 48 hrs Weight 84.822 kg Physical Exam Narrative: Hard of hearing Const: COMMON NORMALS: patient oriented x3 and alert GENERAL APPEARANCE: cooperative ORIENTATION/CONSCIOUSNESS: Yes awake HENMT: COMMON NORMALS: oropharynx normal Neck/C-Spine: COMMON NORMALS: no JVD Resp: COMMON NORMALS: normal respiratory effort and clear to auscultation bilaterally AUSCULTATION: clear to auscultation bilaterally Cardio: COMMON NORMALS: no JVD, regular rhythm, S1 normal heart sound present, S2 normal heart sound present and No murmurs present (Cardio) RATE: bradycardic RHYTHM: regular rhythm HEART SOUNDS: S1 normal heart sound present and S2 normal heart sound present GI: COMMON NORMALS: Normal to inspection, nondistended, normoactive bowel sounds present, Soft to palpation and non-tender PALPATION: Yes Soft to palpation Extremity: COMMON NORMALS: no joint enlargement and no pedal edema Neuro: COMMON NORMALS: patient oriented x3 and moves all extremities SENS ORIUM/ORIENTATION: Yes alert Skin: COMMON NORMALS: no rashes or lesions noted GENERAL SKIN EXAM: no rashes or lesions noted Data : 02/02/22 19:45 02/02/22 19:45 A&P Assessment and plan (1) Pre-syncope: Reports palpitations associated with feeling lightheaded, flushed at home. States his blood pressure cuff read low for heart rate. Hypokalemic. Replace potassium. Monitor on telemetry. Interrogate ICD. Check orthostatics. Complete troponin EKG series. Limited TTE. (2) Palpitations: Monitor on telemetry. Replace potassium. Interrogate ICD. TSH (3) Hypokalemia: Replace potassium. Recheck. (4) Hyponatremia: Possibly hypovolemic hyponatremia. He is on diuretics at home. Hold diuretics for now, regular diet. Reassess sodium. (5) Troponin level elevated: Appears to have some chronic elevation in the setting of CKD. Denies chest pain or pressure. However, has had palpitations and reports presyncopal event. Will trend troponin EKG series. Limited TTE. (6) Gingival nodule: Lower left inner gum nodule. Will need outpatient follow-up. Attestations Medical Necessity Statement*: Place in observation for assessment and management of presyncope, palpitations, hypokalemia, hyponatremia and gentleman with underlying cardiovascular disease, ischemic cardiomyopathy. Coding Level of Care Code Acute Rn Acls for [facility] Fwd Exam Comprehensive Diagnoses Pre-syncope R55 Palpitations R00.2 Hypokalemia E87.6 Hyponatremia E87.1 Troponin level elevated R77.8 Gingival nodule K06.8
--- NOTE | 2022-02-02 21:57 | USCV_ITS ---
Roland Diaz Age: 86 Gender: M : 1935 Exam Date: 02/02/2022 22:11 Ordering Phys: Sanjeev Fry MD Technologist: Cristina Mayers Exam Location: [facility] [place] Indication: Pre Synocpe Trop Elev CAD Isch cardiomyopathy BP: 140 / 69 HR: 58 Rhythm: Sinus Technical Quality: Adequate MEASUREMENTS (Male / Female) Normal Values 2D ECHO LV Diastolic Diameter PLAX 5.3 cm 4.2 - 5.9 / 3.9 - 5.3 cm LV Systolic Diameter PLAX 3.9 cm IVS Diastolic Thickness 1.5 cm 0.6 - 1.0 / 0.6 - 0.9 cm IVS Systolic Thickness 1.8 cm LVPW Diastolic Thickness 1.6 cm 0.6 - 1.0 / 0.6 - 0.9 cm LVPW Systolic Thickness 1.9 cm LVOT Diameter 2.0 cm LV Ejection Fraction 2D Teich 53.8 % LV Ejection Fraction MOD 2C 49.8 % LV Ejection Fraction 2C AL 53.0 % LA Diameter 5.0 cm LA Width 4.3 cm LA Height 4.6 cm RA Width 3.7 cm RA Height 4.2 cm Aorta at Sinotubular Diameter 2.6 cm IVC Diameter 2.2 cm M-MODE Aortic Annulus Diameter 3.4 cm LA Ao Ratio MM 1.8 MV E Point Septal Separation 0.5 cm DOPPLER TR Peak Velocity 305.7 cm/s TR Peak Gradient 37.4 mmHg TR Mean Velocity 177.8 cm/s TR Mean Gradient 15.7 mmHg TR Velocity Time Integral 117.1 cm Right Atrial Pressure 3.0 mmHg Pulmonary Artery Systolic Pressu 40.4 mmHg FINDINGS Left Ventricle Normal LV size with a borderline low ejection fraction of around 50%.abnormal septal motion consistent with conduction abnormality. Right Ventricle Pacemaker/defibrillator wire in the right ventricle Right Atrium Pacemaker/defibrillator wire in the right atrium. Mildly dilated right atrium Left Atrium Moderately increased left atrial size. Mitral Valve Thickened mitral valve. Moderate mitral annular calcification. Possibly severe mitral regurgitation Aortic Valve The bioprosthetic valve in the aortic position appears to be well-seated. No aortic valve Doppler examination was not performed. Tricuspid Valve Moderate tricuspid valve regurgitation. Estimated pulmonary artery peak systolic pressure 40 mmHg Pulmonic Valve Pulmonic valve not well visualized. Pericardium No pericardial effusion. Aorta Normal aortic annulus size. IVC Normal inferior vena cava. CONCLUSIONS Normal LV size with a borderline low ejection fraction of around 50%.abnormal septal motion consistent with conduction abnormality. Moderately increased left atrial size. Mildly dilated right atrium Thickened mitral valve. Moderate mitral annular calcification. Possibly severe mitral regurgitation. The bioprosthetic valve in the aortic position appears to be well-seated. No aortic valve Doppler examination was not performed. Moderate tricuspid valve regurgitation. Estimated pulmonary artery peak systolic pressure 40 mmHg. Pacemaker/defibrillator wire in the right atrium and right ventricle. No other endocardial masses. No pericardial effusion. Compared to the study from 12/01/2021, there are no significant change in the 2D findings Dr Chucho Murray MD [facility] (Electronically Signed) Final Date: 03 February 2022 07:52 S
--- NOTE | 2022-02-02 22:38 | ECG_ITS ---
[facility] Test Date: 2022-02-02 Pat Name: Roland Diaz Department: Room: 112 Gender: Male Sexual Assault Counsellor: : 1935 Requested By: Arias Valdovinos Order Number: [id number] Kimberlee MD: Chucho Mruray M.D. Measurements Intervals [place] Rate: 56 P: 48 GA: 224 QRS: -36 QRSD: 202 T: 65 QT: 586 QTc: 568 Interpretive Statements SINUS BRADYCARDIA WITH FIRST DEGREE AV BLOCK LEFT AXIS DEVIATION [QRS AXIS < -30] LEFT BUNDLE BRANCH BLOCK [120+ ms QRS DURATION, 80+ ms Q/S IN V1/V2, 85+ ms R IN I/aVL/V5/V6] PROLONGED QT INTERVAL CRITICAL TEST RESULT Compared to ECG 02/02/2022 20:12:21 Left-axis deviation now present Prolonged QT interval now present Electronically Signed On 02-04-2022 7:18:26 INKER MACHINE by Chucho Murray M.D. [id number]
[2022-02-02] MEDS: heparin 5,000 unit/mL INJ 1 mL 5000 UNIT SUBCUT (22:54)
[2022-02-02 23:07] LABS: Troponin 5 2HR Delta -22.4 ABS# (0-10)
[2022-02-02 23:09] LABS: Troponin 5 2HR 127.6 ng/L (0-15)
[2022-02-03] VITALS (28 sets, daily range): BP systolic 119–152; BP diastolic 50–78; PULSE 50–68; RESP 15–37; TEMP 36.7; O2SAT 95–100
[2022-02-03] MEDS: aspirin 325 mg Tablet PO ×2 (01:50→11:08)
[2022-02-03] MEDS: atorvastatin 40 mg Tablet PO ×2 (01:50→21:02)
--- NOTE | 2022-02-03 02:20 | ECG_ITS ---
[facility] Test Date: 2022-02-03 Pat Name: Roland Diaz Department: Room: 112 Gender: Male Sponsorship Manager: : 1935 Requested By: Arias Valdovinos Order Number: [id number] Kimberlee MD: Chucho Murray M.D. Measurements Intervals [place] Rate: 52 P: 55 VA: 228 QRS: -29 QRSD: 200 T: 87 QT: 586 QTc: 549 Interpretive Statements SINUS BRADYCARDIA WITH FIRST DEGREE AV BLOCK LEFT BUNDLE BRANCH BLOCK [120+ ms QRS DURATION, 80+ ms Q/S IN V1/V2, 85+ ms R IN I/aVL/V5/V6] PROLONGED QT INTERVAL CRITICAL TEST RESULT Compared to ECG 02/02/2022 22:38:25 Left-axis deviation no longer present Electronically Signed On 02-04-2022 7:19:13 DIRECTOR OF PARKS AND RECREATION by Chucho Murray M.D. [id number]
[2022-02-03 03:40] LABS: Basophils # 0.1 10^3/uL (0.0-0.1); Basophils % 1.3 %; Eosinophils # 0.2 10^3/uL (0.0-0.8); Eosinophils % 3.2 %; Hematocrit 38.9 % (42.0-52.0); Hemoglobin 12.5 g/dL (11.7-16.6); Lymphocytes # 0.9 10^3/uL (0.8-4.8); Lymphocytes % 13.7 %; Mean Corpuscular HGB Conc 32.1 g/dL (30.0-36.0); Mean Corpuscular Hemoglobin 28.2 pg (28.0-34.0); Mean Corpuscular Volume 87.8 fl (80-94); Mean Platelet Volume 10.1 fL (7.4-10.4); Monocytes # 0.8 10^3/uL (0.2-0.9); Monocytes % 12.4 %; Neutrophils # 4.28 10^3/uL (1.8-7.7); Neutrophils % 69.1 %; Nucleated Red Blood Cells % 0 %; Platelet Count 229 10^3/cmm (130-400); Red Blood Count 4.43 10^6/uL (4.1-5.3); Red Cell Distribution Width 19.3 % (12.1-15.1); White Blood Count 6.2 10^3/uL (4.0-10.0)
[2022-02-03 04:17] LABS: Troponin 5 6HR Delta -21.5 ng/L (0-12)
[2022-02-03 04:20] LABS: Troponin 5 6HR 128.5 ng/L (0-15)
[2022-02-03 04:22] LABS: Anion Gap 13.7 (5-19); Blood Urea Nitrogen 46 mg/dL (8-23); Calcium 9.5 mg/dL (8.5-10.5); Carbon Dioxide 35 mmol/L (22-29); Chloride 86 mmol/L (98-107); Glucose 108 mg/dL (65-115); Osmolality Calculated 286 mOsm/kg (285-295); Sodium 132 mmol/L (136-145); Thyroid Stimulating Hormone 0.89 uIU/mL (0.27-4.20)
[2022-02-03 04:29] LABS: Potassium 2.7 mmol/L (3.5-5.1)
[2022-02-03] MEDS: potassium chloride oral liq 20 mEq/15 mL UDC 40 MEQ PO (04:57)
--- NOTE | 2022-02-03 07:20 | PM.CONSULT ---
Providers/Reason For Consult Consulting Physician/Specialty*: ALONDRA Murray MD/cardiology Reason for Consult*: Patient with elevated troponin T Requesting Physician: Dr. Fry Attending Physician: Ifeanyi Yoo MD Primary Care Provider: Mainor Gan History of Present Illness History of Present Illness Roland Diaz is a 86 year old male with multiple rectal problems including coronary artery disease, multiple PCI's, ventricular arrhythmia, aortic valve replacement, etc. Present with complaints of palpitations and some near syncopal episodes. He had a multiple ICD discharges on the device telemetry. He was found to be hypokalemic in the emergency room. His troponin I was found to be elevated. Cardiology consult is requested for further cardiac evaluation recommendations. This patient is known to have atherosclerotic heart disease and ventricular tachycardia. He had the most recent PCI in March of this year at [facility]. Apparently he has been doing okay since then with no recurrence of chest pain. He started having palpitations yesterday morning. He might have had some near syncopal episodes. No complete loss of consciousness. He was brought to the hospital by the ambulance for these complaints. He has no fever, chills or cough. No nausea or vomiting. No abdominal pain or dysuria. No other specific complaints. Patient has a history of ventricular tachycardia and had a single-chamber ICD implantation in July 2017. He had a TAVR in December 2020. In March 2021, he had EVAR along with renal artery stent placement. Both of these were done at the [facility] in [place]. He had an Edward TRES 3 valve at the aortic position. He also is known to have high blood pressure, dyslipidemia, congestive heart failure, chronic kidney disease of stage III. His prior echocardiogram revealed an LV ejection fraction of 40 to 45%. Mildly reduced right ventricular ejection fraction. Bilateral enlargement. Severe mitral regurgitation, moderate to severe tricuspid regurgitation, pulmonary hypertension with an estimated pulmonary artery peak systolic pressure of 60 mmHg. He was found to have endoleak in October 2021. He had a GI bleed requiring blood transfusion and also iron transfusion. He was admitted to the [facility] in [place] in October. At that time he had a work-up for the mitral valve regurgitation. Apparently he was told not to be a candidate for percutaneous mitral valve intervention. He had some extensive GI work-up for the bleed. 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 He was treated with the Bumex for the heart failure. He is on hydralazine for the high blood pressure, along with other medications. Currently at the time of my examination, patient is feeling okay. Denies any chest pain. No fever or chills. No cough. No abdominal pain or dysuria. No other specific complaints. Review of Systems Narrative: CONSTITUTIONAL: No fever or chills. EYES: No blurring of vision or other visual disturbances lately. ENT: No hoarseness of voice, auditory disturbances or sore throat. CARDIOVASCULAR: As mentioned above. RESPIRATORY: No significant cough. GASTROINTESTINAL: History of GI bleed as mentioned above GENITOURINARY: No dysuria or hematuria. INTEGUMENTARY: No skin rashes or history of skin cancer. NEURO: No transient ischemic attacks or amaurosis. PSYCHIATRIC: No history of psychosis or major depression. HEMATOLOGIC: Chronic anemia ENDOCRINE: No history of polyuria or polydipsia. MUSCULOSKELETAL: No recent joint pain or swelling. ALLERGY/IMMUNOLOGY: As mentioned above. Medications/Allergies Home Medications Medication Instructions Recorded Confirmed Last Taken Type docusate sodium 100 mg capsule 100 mg PO BID PRN Constipation 04/05/19 02/03/22 11/05/20 22:00 History (Colace) tamsulosin 0.4 mg capsule 0.4 mg PO DAILY 04/05/19 02/03/22 10/29/21 History ascorbic acid (vitamin C) 1,000 mg 1,000 mg PO DAILY 11/06/20 02/03/22 10/29/21 History tablet (Vitamin C) aspirin 81 mg tablet,delayed 81 mg PO DAILY 01/22/21 02/03/22 10/29/21 History release (Adult Low Dose Aspirin) amiodarone 200 mg tablet 200 mg PO DAILY #90 tabs 05/21/21 02/03/22 Unknown Rx atorvastatin 40 mg tablet 40 mg PO DAILY #90 tabs 05/21/21 02/03/22 10/29/21 Rx nitroglycerin 0.4 mg sublingual 0.4 mg sublingual Q5M PRN Chest 05/21/21 02/03/22 Unknown Rx tablet (Nitrostat) Pain #25 tabs pantoprazole 40 mg tablet,delayed 40 mg PO DAILY #90 tabs 05/21/21 02/03/22 10/29/21 Rx release finasteride 5 mg tablet 5 mg PO DAILY 06/21/21 02/03/22 10/29/21 History calcium carbonate 500 mg calcium 500 mg PO TID PRN Indigestion 12/01/21 02/03/22 Unknown History (1,250 mg) chewable tablet cyanocobalamin (vitamin B-12) 250 250 mcg PO DAILY 12/01/21 02/03/22 Unknown History mcg tablet (Vitamin B-12) sennosides 8.6 mg-docusate sodium 1 tab-cap PO DAILY 12/01/21 02/03/22 Unknown History 50 mg tablet (Senna with Docusate Sodium) vitamin A 10,000 unit capsule 10,000 unit PO DAILY 12/01/21 02/03/22 Unknown History metolazone 5 mg tablet 2.5 mg PO Q72H #15 tabs 12/10/21 02/03/22 Unknown Rx ferrous sulfate 325 mg (65 mg 325 mg PO DAILY #90 tabs 12/23/21 02/03/22 Unknown Rx iron) tablet gabapentin 100 mg capsule 100 mg PO BID #60 caps 12/23/21 02/03/22 Unknown Rx hydralazine 25 mg tablet 75 mg PO BID #90 tabs 12/23/21 02/03/22 Unknown Rx guaifenesin 600 mg tablet, 600 mg PO Q12H PRN congestion #60 01/07/22 02/03/22 Unknown Rx extended release 12 hr tabs ondansetron 8 mg disintegrating 8 mg PO 3XD PRN Nausea And 01/07/22 02/03/22 Unknown Rx tablet Vomiting #20 tabs fluticasone propionate 50 1 spray intranasal DAILY PRN 01/21/22 02/03/22 Unknown History mcg/actuation nasal Congestion spray,suspension furosemide 40 mg tablet (Lasix) 40 mg PO DIRECTED 01/21/22 02/03/22 Unknown History polyethylene glycol 3350 17 gram 17 g PO DAILY PRN Constipation 01/21/22 02/03/22 Unknown History oral powder packet (Miralax) potassium chloride 20 mEq 20 meq PO DIRECTED 01/21/22 02/03/22 Unknown History tablet,extended release Allergies Allergy/AdvReac Type Severity Reaction Status Date / Time No Known Allergies Allergy Verified 01/07/22 13:40 Current Medications Generic Name Dose Route Start Last Admin Trade Name Rovertoq PRN Reason Stop Dose Admin Aspirin 325 mg 02/03/22 00:20 02/03/22 01:50 Aspirin 325 Mg Tablet PO 325 mg DAILY COLLEEN Administration Atorvastatin Calcium 40 mg 02/03/22 00:20 02/03/22 01:50 Atorvastatin 40 Mg Tablet PO 40 mg BEDTIME COLLEEN Administration Heparin Sodium (Porcine) 5,000 unit 02/02/22 22:00 02/02/22 22:54 Heparin 5,000 Unit/Ml Inj 1 Ml SUBCUT 5,000 unit Q12H COLLEEN Administration PFSH Acute PFSH: Medical History (Updated 02/03/22 @ 10:03 by Chucho Murray MD) Abdominal aortic aneurysm (AAA) 4.3?4.3 approximately 5.04?5.04 distally Aortic stenosis ASHD (arteriosclerotic heart disease) Bradycardia CHF (congestive heart failure) Biventricular, 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 Cognitive dysfunction Elevated PSA 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 Essential hypertension GERD (gastroesophageal reflux disease) Heart block atrioventricular History of nonmelanoma skin cancer Hyperlipidemia Hypothyroidism Ischemic cardiomyopathy EF 40 to 45%?12/01/2021 LVH (left ventricular hypertrophy) Peripheral neuropathy Prostate cancer Prostatic hypertrophy Pulmonary HTN Severe mitral regurgitation SOB (shortness of breath) SVT (supraventricular tachycardia) TIA (transient ischemic attack) Ventricular tachycardia Status post AICD placement Surgical History (Updated 02/03/22 @ 10:02 by Chucho Murray MD) S/P angioplasty with stent Coronary disease status post 3 stents S/P implantation of automatic cardioverter/defibrillator (AICD) ST HERBIE SINGLE CHAMBER 08/07 S/P TAVR (transcatheter aortic valve replacement) Status post endovascular aneurysm repair (EVAR) Family History Father CAD (coronary artery disease) Mother CAD (coronary artery disease) CHF (congestive heart failure) Brother Parkinson disease Sister Fibromyalgia Other Cancer Social History Smoking and tobacco status: never smoked Alcohol intake: never Lives independently: Yes Marital status: / service: No Current occupational status: retired History of recent travel: No Current gender identity: Male Gillian/Moravian: Sabianist Vitals/I&O/Wt Last Vital Signs Temp 97.9 F 02/02/22 23:15 Pulse 57 L 02/03/22 06:00 Resp 18 02/03/22 04:00 BP 152/66 02/03/22 02:20 Pulse Ox 95 02/03/22 04:00 O2 Del Method 02/03/22 04:00 O2 Flow Rate 2 02/03/22 02:20 02/02/22 02/03/22 02/03/22 22:59 06:59 14:59 Intake Total 200 / 200 Output Total 440 / 440 Balance -240 / -240 Weight last 48 hrs Weight 185 lb 8 oz Weight 187 lb Physical Exam Narrative: For GENERAL: The patient is alert and oriented times three. Not in any acute distress. HEENT: No significant pallor, icterus or lymphadenopathy.Oral cavity: There are no mucous membrane lesions. NECK: Trachea appears to be central. No masses noted. No JVD or thyromegaly appreciated. RESPIRATORY: Chest is symmetrical. No intercostals muscle retraction or any accessory muscle activation. There is no chest wall tenderness. Breath sounds are heard bilaterally. No rales or rhonchi heard. No evidence of any consolidation. BREASTS: Deferred. HEART: The heart sounds are normal. No S3 or S4. Short systolic murmur at the base of the heart. No diastolic murmurs.. No pericardial rub ABDOMEN: No vessel pulsations or distention. No tenderness. No organomegaly appreciated. Bowel sounds are normally heard. : Deferred. RECTAL: Deferred. LYMPHATIC: No lymphadenopathy noted in the neck. EXTREMITIES: No peripheral pleasant 70-week bilaterally. MUSCULOSKELETAL: No acute joint deformities or swelling SKIN: There are no significant rashes or ecchymosis NEUROPSYCHIATRIC: The patient is alert and oriented x3. Appears to be in a good mood. No tremors or rigidity noted. Data : 02/03/22 02:18 02/03/22 16:52 Other Labs: Laboratory Last Values WBC 6.2 10^3/uL (4.0-10.0) 02/03/22 02:18 RBC 4.43 10^6/uL (4.1-5.3) 02/03/22 02:18 Hgb 12.5 g/dL (11.7-16.6) 02/03/22 02:18 Hct 38.9 % (42.0-52.0) L 02/03/22 02:18 MCV 87.8 fl (80-94) 02/03/22 02:18 MCH 28.2 pg (28.0-34.0) 02/03/22 02:18 MCHC 32.1 g/dL (30.0-36.0) 02/03/22 02:18 RDW 19.3 % (12.1-15.1) H 02/03/22 02:18 Plt Count 229 10^3/cmm (130-400) 02/03/22 02:18 MPV 10.1 fL (7.4-10.4) 02/03/22 02:18 Neut % (Auto) 69.1 % 02/03/22 02:18 Lymph % (Auto) 13.7 % 02/03/22 02:18 [place] % (Auto) 12.4 % 02/03/22 02:18 Eos % (Auto) 3.2 % 02/03/22 02:18 Baso % (Auto) 1.3 % 02/03/22 02:18 Neut # (Auto) 4.28 10^3/uL (1.8-7.7) 02/03/22 02:18 Lymph # (Auto) 0.9 10^3/uL (0.8-4.8) 02/03/22 02:18 [place] # (Auto) 0.8 10^3/uL (0.2-0.9) 02/03/22 02:18 Eos # (Auto) 0.2 10^3/uL (0.0-0.8) 02/03/22 02:18 Baso # (Auto) 0.1 10^3/uL (0.0-0.1) 02/03/22 02:18 Nucleated RBC % (auto) 0 % 02/03/22 02:18 Nucleated RBCs # 0.0 /100WBC 02/03/22 02:18 Sodium 132 mmol/L (136-145) L 02/03/22 02:18 Potassium 2.7 mmol/L (3.5-5.1) L* 02/03/22 02:18 Chloride 86 mmol/L (98-107) L 02/03/22 02:18 Carbon Dioxide 35 mmol/L (22-29) H 02/03/22 02:18 Anion Gap 13.7 (5-19) 02/03/22 02:18 BUN 46 mg/dL (8-23) H 02/03/22 02:18 Creatinine 2.4 mg/dL (0.7-1.2) H 02/03/22 02:18 GFR Calculation Not Reportable 02/03/22 02:18 Glucose 108 mg/dL (65-115) 02/03/22 02:18 Calculated Osmolality 286 mOsm/kg (285-295) 02/03/22 02:18 Calcium 9.5 mg/dL (8.5-10.5) 02/03/22 02:18 Magnesium 2.5 mg/dL (1.7-2.3) H 02/02/22 19:45 Total Bilirubin 0.3 mg/dL (0.15-1.2) 02/02/22 19:45 AST 19 U/L (0-40) 02/02/22 19:45 ALT 11 U/L (0-41) 02/02/22 19:45 Alkaline Phosphatase 158 U/L (40-130) H 02/02/22 19:45 Troponin T Baseline 150 ng/L (0-15) H* 02/02/22 19:45 Troponin T 120 Minute 127.6 ng/L (0-15) H 02/02/22 22:24 Delta Troponin T -22.4 ABS# (0-10) L 02/02/22 22:24 Troponin T Hi Sens 6Hr 128.5 ng/L (0-15) H 02/03/22 02:18 Troponin T Hi Sens 6Hr Delta -21.5 ng/L (0-12) L 02/03/22 02:18 Total Protein 7.7 g/dL (6.6-8.7) 02/02/22 19:45 Albumin 4.1 g/dL (3.5-5.2) 02/02/22 19:45 Globulin 3.6 g/dL (1.3-4.6) 02/02/22 19:45 TSH 0.89 uIU/mL (0.27-4.20) 02/03/22 02:18 Other data: The device interrogation report was reviewed. Patient was found as all episodes of ventricular tachycardia terminated either by overdrive pacing or ICD discharges. A&P Assessment and plan (1) Encounter for testing following appropriate discharge of implantable cardioverter-defibrillator (ICD): Most likely had a ventricular arrhythmias are related to the hypokalemia and previous VT. at this point because of the severe hypokalemia, I may currently electrolyte imbalance. If she has recurrence of ventricular tachycardia even after this, need to consider increasing the amiodarone dose (2) Pre-syncope: Most likely related to ventricular tachycardia. At this point, he may continue on the current management. (3) Hypokalemia: The hypokalemia is being corrected. (4) Acute kidney injury superimposed on chronic kidney disease: Renal function needs to be closely monitored. 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 The aneurysm sac is not expanding, based on the records. At this point, the patient may continue on the current management. (6) S/P implantation of automatic cardioverter/defibrillator (AICD): The ICD discharges appears to be appropriate. May continue on the current follow-up schedule. (7) S/P TAVR (transcatheter aortic valve replacement): Aortic valve function is appropriate. At this point, patient does not require any specific intervention Plan Based on the patient's clinical progress and the rest of the above, further recommendations will be made. Thank you for the opportunity to eval this patient make these recommendations Consult Attestations Medical Necessity Statement: Patient requires continued hospital stay for close monitoring and further management Coding Level of Care Code Acute Melter Supervisor Electric Arc Furnace for [facility] Fwd Medical Decision Making High Complexity Diagnoses Encounter for testing following appropriate discharge of implantable cardioverter-defibrillator (ICD) Z45.02 Pre-syncope R55 Hypokalemia E87.6 Acute kidney injury superimposed on chronic kidney disease N17.9; N18.9 Status post endovascular aneurysm repair (EVAR) Z98.890; Z86.79 S/P implantation of automatic cardioverter/defibrillator (AICD) Z95.810 S/P TAVR (transcatheter aortic valve replacement) Z95.2
[2022-02-03 10:21] LABS: Potassium 2.9 mmol/L (3.5-5.1)
[2022-02-03] MEDS: pantoprazole DR 40 mg Tablet PO (11:09)
[2022-02-03] MEDS: heparin 5,000 unit/mL INJ 1 mL 5000 UNIT SUBCUT ×2 (11:09→21:02)
[2022-02-03] MEDS: amiodarone 200 mg Tablet PO (11:09)
[2022-02-03] MEDS: tamsulosin 0.4 mg Capsule PO (11:10)
[2022-02-03] MEDS: lidocaine 1% 5 ML in potassium chloride premix 100 ML 25 ML IV (12:09)
--- NOTE | 2022-02-03 12:22 | PC.CHAP ---
Pastoral Care Encounter/Spiritual Assessment Type of Contact [] Declined pattern stamper visit [] Patient/Family/Request visit [] Outpatient visit [] Follow-up visit [] Physician referral [] Code/Alert [x] Routine visit [] Staff referral [] Actively dying [x] Patient sleeping [] Family support [] [] Out of room [] Palliative care [] [] Receiving care in room [] Pre-surgical visit [] Trauma [] Long length of stay [] ICU visit [] Other: Relational/Emotional Strength [] Patient feels connected with others/family/visitors/staff [] Distress [] Loneliness/isolation [] Abandonment Spirituality of Patient [] Person of Gillian [] Attends Gnosticism of their Gillian [] Believes in Prayer [] Reads Bible or Lutheran materials [] There are Spiritual issues to be addressed Associate Technician Interventions [x] Prayer [] Active listening [] Non-anxious presence [] Spiritual/emotional support [] Crisis/trauma care [] Spiritual counseling [] Bereavement support [] Provided bereavement packet [] Provided Bible/devotional materials [] Provided toy/stuffed animal, coloring book to patient or family member [] Provided Communion [] Anointing/[place] [] Salvation [x] Completed spiritual assessment [] Other: Impact on Illness or Injury [] Angry [] Fearful [] Anxious [] Often cries [] Exhaustion [] Unable to work [] Unable to attend sabianism [] Unable to walk/stand [] Unable to read [] Unable to drive [] Unable to eat/drink [] Unable to sleep [] Unable to be with family [] Patient intubated [] Other: Summary Time spent with patient
[2022-02-03] MEDS: potassium chloride ER 20 mEq Tablet 40 MEQ PO ×2 (14:27→15:41)
--- NOTE | 2022-02-03 14:53 | P.PN_ITS ---
Subjective Subjective: Admitted overnight. H&P and labs appreciated. Examination patient is lying comfortably in bed. Awake and alert. Hard of hearing. States he is feeling a lot better. No more episodes of palpitations or feeling dizzy. States that all the symptoms started on last Thursday. Vitals/I&O/Wt Last Vital Signs Temp 97.9 F 02/02/22 23:15 Pulse 62 02/03/22 10:04 Resp 18 02/03/22 08:05 BP 136/78 02/03/22 08:05 Pulse Ox 95 02/03/22 10:04 O2 Del Method 02/03/22 10:04 O2 Flow Rate 2 02/03/22 02:20 02/02/22 02/03/22 02/03/22 22:59 06:59 14:59 Intake Total 200 / 200 240 / 240 Output Total 440 / 440 400 / 400 Balance -240 / -240 -160 / -160 Weight last 48 hrs Weight 84.141 kg Weight 84.822 kg Physical Exam Narrative: Hard of hearing Const: COMMON NORMALS: patient oriented x3 and alert GENERAL APPEARANCE: cooperative ORIENTATION/CONSCIOUSNESS: Yes awake HENMT: COMMON NORMALS: oropharynx normal Neck/C-Spine: COMMON NORMALS: no JVD Resp: COMMON NORMALS: normal respiratory effort and clear to auscultation bilaterally AUSCULTATION: clear to auscultation bilaterally Cardio: COMMON NORMALS: no JVD, regular rhythm, S1 normal heart sound present, S2 normal heart sound present and No murmurs present (Cardio) RATE: bradycardic RHYTHM: regular rhythm HEART SOUNDS: S1 normal heart sound present and S2 normal heart sound present GI: COMMON NORMALS: Normal to inspection, nondistended, normoactive bowel sounds present, Soft to palpation and non-tender PALPATION: Yes Soft to palpation Extremity: COMMON NORMALS: no joint enlargement and no pedal edema Neuro: COMMON NORMALS: patient oriented x3 and moves all extremities SENSORIUM/ORIENTATION: Yes alert Skin: COMMON NORMALS: no rashes or lesions noted GENERAL SKIN EXAM: no rashes or lesions noted Data : 02/03/22 02:18 02/03/22 09:40 A&P Assessment and plan (1) Pre-syncope: Most likely secondary to arrhythmia. Appreciated ICD interrogation with multiple episodes of bladder tachycardia requiring ICD firing. 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 Will monitor orthostatics. Limited echocardiogram results appreciated. EF 50%, moderately increased LA s ize, PASP of 40 mmHg. Monitor telemetry. Appreciate cardiology recommendations. Possibility of stress test in a.m. to rule out ischemic nature of arrhythmia. (2) Palpitations: Secondary to multiple episodes of VT and ICD firing (3) Hypokalemia: Overall received 120 mEq of potassium since admission. Repeat potassium 2.9. Receiving 40 mg of IV K rider. Replete with 40 mg of oral every hourly for 2 doses. Repeat magnesium and potassium at 4 PM. (4) Hyponatremia: Possibly hypovolemic hyponatremia. He is on diuretics at home. Hold diuretics for now, regular diet. Reassess sodium. (5) Troponin level elevated: Appears to have some chronic elevation in the setting of CKD. Denies chest pain or pressure. However, has had palpitations and reports presyncopal event. Possibly stress test above. (6) Gingival nodule: Lower left inner gum nodule. Will need outpatient follow-up. Plan Restart chronic medications including metolazone 2.5 mg every 72 hour with 12 dose on 02/04. Restart gabapentin 100 g twice daily, finasteride 5 mg daily, Flomax 0.4 mg daily. . Analgesia: Tylenol as needed. Glycemic control: Not needed. Nutrition: Regular diet CODE STATUS: Full code PUD prophylaxis: Protonix DVT prophylaxis: Heparin 5000 every 12 hourly Discharge planning: Home with caregiver once medically stable. Continue with care at CSU level. This documentation was created by [employer] substation supervisor software. Every effort was made to ensure accuracy of substation supervisor. Any obvious errors or omissions should be clarified with the author of the document. Attestations Medical Necessity Statement*: Requires further hospitalization for management of presyncope secondary to arrhythmia most likely from extensive hypokalemia Time Spent in Patient Care: Greater than 35 minutes Coding Level of Care Code Acute Client Solutions Specialist for [facility] Fwd Diagnoses Pre-syncope R55 Palpitations R00.2 Hypokalemia E87.6 Hyponatremia E87.1 Troponin level elevated R77.8 Gingival nodule K06.8
[2022-02-03 17:35] LABS: Magnesium 2.7 mg/dL (1.7-2.3); Potassium 3.3 mmol/L (3.5-5.1)
[2022-02-03] MEDS: gabapentin 100 mg Capsule PO (17:46)
[2022-02-03] MEDS: potassium chloride ER 20 mEq Tablet PO (18:04)
[2022-02-03] MEDS: acetaminophen 325 mg Tablet 650 MG PO (22:16)
[2022-02-04] VITALS (12 sets, daily range): BP systolic 85–162; BP diastolic 61–85; PULSE 63–82; RESP 18–21; TEMP 36.3–36.5; O2SAT 96
--- NOTE | 2022-02-04 | ECG_ITS ---
[facility] Test Date: 2022-02-04 Pat Name: Roland Diaz Department: Room: 112 Gender: Male Pump And Blower Operator: Gena Connelly : 1935 Requested By: Chucho Murray Order Number: [id number] Kimberlee MD: Chucho Murray M.D. Interpretive Statements NAME OF STUDY: LEXISCAN SESTAMIBI STRESS TEST INDICATION: Palpitations, PROCEDURE: At the baseline, the EKG revealed normal sinus rhythm with intraventricular conduction delay, frequent premature ventricular contractions and aberrantly conducted beats. The baseline heart was 64 bpm with a blood pressue of 141/70 mm of Hg Lexiscan was infused over a period of 20 seconds. A total of 0.4 milligrams of Lexiscan was infused. The stress phase was continued for a total of 5 minutes. Heart rate at the end of the stress phase was 75 bpm with a blood pressure 132/59 mm of Hg. The EKG at the peak infusion revealed no significant changes. Sestamibi was injected 20 seconds after the Lexiscan infusion. Heart rate at the end of the recovery phase was 72 bpm with a blood pressure of 85/58 mm of Hg. CONCLUSION: 1. No significant EKG changes with the LexiScan infusion 2. No LexiScan induced chest pain or cardiac arrhythmia 3. Hypertensive response to Lexiscan infusion. Normal heart rate response. 4. Sestamibi/sestamibi perfusion scan pending; see separate report. Electronically Signed On 02-09-2022 17:53:56 CHINA DECORATOR by Chucho Murray M.D. [id number]
[2022-02-04 05:21] LABS: Basophils # 0.1 10^3/uL (0.0-0.1); Basophils % 1.3 %; Eosinophils # 0.3 10^3/uL (0.0-0.8); Eosinophils % 5.4 %; Hematocrit 35.2 % (42.0-52.0); Hemoglobin 11.1 g/dL (11.7-16.6); Lymphocytes # 0.6 10^3/uL (0.8-4.8); Lymphocytes % 11.9 %; Mean Corpuscular HGB Conc 31.5 g/dL (30.0-36.0); Mean Corpuscular Volume 88.7 fl (80-94); Mean Platelet Volume 9.3 fL (7.4-10.4); Monocytes # 0.8 10^3/uL (0.2-0.9); Monocytes % 14.3 %; Neutrophils % 66.9 %; Nucleated Red Blood Cells % 0 %; Platelet Count 182 10^3/cmm (130-400); Red Blood Count 3.97 10^6/uL (4.1-5.3); Red Cell Distribution Width 19.2 % (12.1-15.1); White Blood Count 5.4 10^3/uL (4.0-10.0)
[2022-02-04 05:47] LABS: Alanine Aminotransferase 10 U/L (0-41); Albumin Level 3.7 g/dL (3.5-5.2); Alkaline Phosphatase 134 U/L (40-130); Aspartate Amino Transferase 19 U/L (0-40); Blood Urea Nitrogen 51 mg/dL (8-23); Calcium 9.2 mg/dL (8.5-10.5); Carbon Dioxide 31 mmol/L (22-29); Chloride 93 mmol/L (98-107); Globulin 2.9 g/dL (1.3-4.6); Glucose 92 mg/dL (65-115); Osmolality Calculated 293 mOsm/kg (285-295); Sodium 135 mmol/L (136-145); Total Bilirubin 0.3 mg/dL (0.15-1.2); Total Protein 6.6 g/dL (6.6-8.7)
[2022-02-04 05:50] LABS: Anion Gap 14.5 (5-19); Potassium 3.5 mmol/L (3.5-5.1)
--- NOTE | 2022-02-04 07:29 | P.PN_ITS ---
Subjective Subjective: Patient had a Myocardial perfusion imaging today. He was found to have a small to moderate area of moderate to severely decreased tracer uptake in the inferior and inferolateral regions with significant reversibility, suggesting ischemia in the distribution of the right coronary artery/circumflex artery. According the patient, he had severe pressure-like pain in the chest while having the Lexiscan infusion. He felt like an elephant is sitting on his chest. Medications: Medication Review Details: Current Medications Acetaminophen (Acetaminophen 325 Mg Tablet) 650 mg PO Q6H PRN PRN Reason: Mild/Mod Pain Or Temp >/= 101 Last Admin: 02/03/22 22:16 Dose: 650 mg Amiodarone HCl (Amiodarone 200 Mg Tablet) 200 mg PO DAILY [facility] Last Admin: 02/03/22 11:09 Dose: 200 mg Aspirin (Aspirin 325 Mg Tablet) 325 mg PO DAILY [facility] Last Admin: 02/03/22 11:08 Dose: 325 mg Atorvastatin Calcium (Atorvastatin 40 Mg Tablet) 40 mg PO BEDTIME [facility] Last Admin: 02/03/22 21:02 Dose: 40 mg Ferrous Sulfate (Ferrous Sulfate Ec 325 Mg Tablet) 325 mg PO DAILY [facility] Finasteride (Finasteride 5 Mg Tablet) 5 mg PO DAILY [facility] Gabapentin (Gabapentin 100 Mg Capsule) 100 mg PO BID [facility] Last Admin: 02/03/22 17:46 Dose: 100 mg Heparin Sodium (Porcine) (Heparin 5,000 Unit/Ml Inj 1 Ml) 5,000 unit SUBCUT Q12H [facility] Last Admin: 02/03/22 21:02 Dose: 5,000 unit Metolazone (Metolazone 5 Mg Tablet) 2.5 mg PO Q72H [facility] Ondansetron HCl (Ondansetron 2 Mg/Ml Sdv 2 Ml) 4 mg IVP Q8H PRN PRN Reason: vomiting, or N/V if npo Pantoprazole Sodium (Pantoprazole Dr 40 Mg Tablet) 40 mg PO DAILY [facility] Last Admin: 02/03/22 11:09 Dose: 40 mg Senna/Docusate Sodium (Sennosides-Docusate Tablet) 2 tab PO DAILY PRN PRN Reason: CONSTIPATION Tamsulosin HCl (Tamsulosin 0.4 Mg Capsule) 0.4 mg PO DAILY [facility] Last Admin: 02/03/22 11:10 Dose: 0.4 mg Vitals/I&O/Wt Last Vital Signs Temp 97.5 F L 02/04/22 00:24 Pulse 63 02/04/22 05:31 Resp 18 02/04/22 04:10 BP 130/61 02/04/22 04:10 Pulse Ox 95 02/03/22 10:04 O2 Del Method 02/03/22 10:04 O2 Flow Rate 2 02/03/22 02:20 02/03/22 02/04/22 02/04/22 22:59 06:59 14:59 Intake Total 935 / 1415 Output Total 200 / 600 400 / 1000 Balance 735 / 815 -400 / 415 Weight last 48 hrs Weight 185 lb 4.8 oz Weight 185 lb 8 oz Weight 187 lb Physical Exam Narrative: For GENERAL: The patient is alert and oriented times three. Not in any acute distress. HEENT: No significant pallor, icterus or lymphadenopathy.Oral cavity: There are no mucous membrane lesions. NECK: Trachea appears to be central. No masses noted. No JVD or thyromegaly appreciated. RESPIRATORY: Chest is symmetrical. No intercostals muscle retraction or any accessory muscle activation. There is no chest wall tenderness. Breath sounds are heard bilaterally. No rales or rhonchi heard. No evidence of any consolidation. BREASTS: Deferred. HEART: The heart sounds are normal. No S3 or S4. Short systolic murmur at the base of the heart. No diastolic murmurs.. No pericardial rub ABDOMEN: No vessel pulsations or distention. No tenderness. No organomegaly appreciated. Bowel sounds are normally heard. : Deferred. RECTAL: Deferred. LYMPHATIC: No lymphadenopathy noted in the neck. EXTREMITIES: No peripheral pleasant 70-week bilaterally. MUSCULOSKELETAL: No acute joint deformities or swelling SKIN: There are no significant rashes or ecchymosis NEUROPSYCHIATRIC: The patient is alert and oriented x3. Appears to be in a good mood. No tremors or rigidity noted. Data : 02/04/22 05:03 02/04/22 04:21 Other Labs: Laboratory Last Values WBC 5.4 10^3/uL (4.0-10.0) 02/04/22 05:03 RBC 3.97 10^6/uL (4.1-5.3) L 02/04/22 05:03 Hgb 11.1 g/dL (11.7-16.6) L 02/04/22 05:03 Hct 35.2 % (42.0-52.0) L 02/04/22 05:03 MCV 88.7 fl (80-94) 02/04/22 05:03 MCH 28.0 pg (28.0-34.0) 02/04/22 05:03 MCHC 31.5 g/dL (30.0-36.0) 02/04/22 05:03 RDW 19.2 % (12.1-15.1) H 02/04/22 05:03 Plt Count 182 10^3/cmm (130-400) 02/04/22 05:03 MPV 9.3 fL (7.4-10.4) 02/04/22 05:03 Neut % (Auto) 66.9 % 02/04/22 05:03 Lymph % (Auto) 11.9 % 02/04/22 05:03 Maverick % (Auto) 14.3 % 02/04/22 05:03 Eos % (Auto) 5.4 % 02/04/22 05:03 Baso % (Auto) 1.3 % 02/04/22 05:03 Neut # (Auto) 3.60 10^3/uL (1.8-7.7) 02/04/22 05:03 Lymph # (Auto) 0.6 10^3/uL (0.8-4.8) L 02/04/22 05:03 Maverick # (Auto) 0.8 10^3/uL (0.2-0.9) 02/04/22 05:03 Eos # (Auto) 0.3 10^3/uL (0.0-0.8) 02/04/22 05:03 Baso # (Auto) 0.1 10^3/uL (0.0-0.1) 02/04/22 05:03 Nucleated RBC % (auto) 0 % 02/04/22 05:03 Nucleated RBCs # 0.0 /100WBC 02/04/22 05:03 Sodium 135 mmol/L (136-145) L 02/04/22 04:21 Potassium 3.5 mmol/L (3.5-5.1) 02/04/22 04:21 Chloride 93 mmol/L (98-107) L 02/04/22 04:21 Carbon Dioxide 31 mmol/L (22-29) H 02/04/22 04:21 Anion Gap 14.5 (5-19) 02/04/22 04:21 BUN 51 mg/dL (8-23) H 02/04/22 04:21 Creatinine 2.2 mg/dL (0.7-1.2) H 02/04/22 04:21 GFR Calculation Not Reportable 02/04/22 04:21 Glucose 92 mg/dL (65-115) 02/04/22 04:21 Calculated Osmolality 293 mOsm/kg (285-295) 02/04/22 04:21 Calcium 9.2 mg/dL (8.5-10.5) 02/04/22 04:21 Magnesium 2.7 mg/dL (1.7-2.3) H 02/03/22 16:52 Total Bilirubin 0.3 mg/dL (0.15-1.2) 02/04/22 04:21 AST 19 U/L (0-40) 02/04/22 04:21 ALT 10 U/L (0-41) 02/04/22 04:21 Alkaline Phosphatase 134 U/L (40-130) H 02/04/22 04:21 Troponin T Baseline 150 ng/L (0-15) H* 02/02/22 19:45 Troponin T 120 Minute 127.6 ng/L (0-15) H 02/02/22 22:24 Delta Troponin T -22.4 ABS# (0-10) L 02/02/22 22:24 Troponin T Hi Sens 6Hr 128.5 ng/L (0-15) H 02/03/22 02:18 Troponin T Hi Sens 6Hr Delta -21.5 ng/L (0-12) L 02/03/22 02:18 Total Protein 6.6 g/dL (6.6-8.7) 02/04/22 04:21 Albumin 3.7 g/dL (3.5-5.2) 02/04/22 04:21 Globulin 2.9 g/dL (1.3-4.6) 02/04/22 04:21 TSH 0.89 uIU/mL (0.27-4.20) 02/03/22 02:18 A&P Assessment and plan (1) Encounter for testing following appropriate discharge of implantable cardioverter-defibrillator (ICD): Since the patient has no recurrence of the VT, may continue on the current medications. Hypokalemia coupled with ischemia might have contributed to the V. tach. I may start him on isosorbide mononitrate 30 mg p.o. daily in addition to the current medications. (2) Pre-syncope: Most likely related to ventricular tachycardia. At this point, he may continue on the current management. (3) Hypokalemia: The hypokalemia is being corrected. (4) Acute kidney injury superimposed on chronic kidney disease: His BUN and creatinine levels may be slowly plateauing. At this point, doing another angiogram may make things worse. 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 The aneurysm sac is not expanding, based on the records. At this point, the patient may continue on the current management. (6) S/P implantation of automatic cardioverter/defibrillator (AICD): The ICD discharges appears to be appropriate. May continue on the current follow-up schedule. (7) S/P TAVR (transcatheter aortic valve replacement): Aortic valve function is appropriate. At this point, patient does not require any specific intervention Plan I discussed with the patient in detail the implications of the Myocardial perfusion imaging results and the treatment options. He does not have any significant chest pains at rest. The only time he had the pain since his hospital admission was during the Lexiscan infusion. 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 Started him on isosorbide mononitrate 30 mg p.o. daily. If he continues remain stable, may be discharged home tomorrow. Appointment the [facility] to be seen by the nurse practitioner next week. Appointment with the Dr. James in 1 month Attestations Medical Necessity Statement*: Patient requires continued hospital stay for close monitoring and further management Coding Level of Care Code Acute Delivery Agent for Chg Fwd History Expanded Problem Focused Exam Detailed Medical Decision Making Moderate Complexity Diagnoses Encounter for testing following appropriate discharge of implantable cardioverter-defibrillator (ICD) Z45.02 Pre-syncope R55 Hypokalemia E87.6 Acute kidney injury superimposed on chronic kidney disease N17.9; N18.9 Status post endovascular aneurysm repair (EVAR) Z98.890; Z86.79 S/P implantation of automatic cardioverter/defibrillator (AICD) Z95.810 S/P TAVR (transcatheter aortic valve replacement) Z95.2
[2022-02-04] MEDS: regadenoson 0.4 Mg/5 ml Syringe IVP (07:35)
--- NOTE | 2022-02-04 07:39 | PC.NURSE ---
at the stress test
[2022-02-04] MEDS: tamsulosin 0.4 mg Capsule PO (08:46)
[2022-02-04] MEDS: pantoprazole DR 40 mg Tablet PO (08:46)
[2022-02-04] MEDS: gabapentin 100 mg Capsule PO ×2 (08:46→18:07)
[2022-02-04] MEDS: aspirin 325 mg Tablet PO (08:46)
[2022-02-04] MEDS: finasteride 5 mg Tablet PO (08:46)
[2022-02-04] MEDS: ferrous sulfate EC 325 mg Tablet PO (08:46)
[2022-02-04] MEDS: amiodarone 200 mg Tablet PO (08:46)
--- NOTE | 2022-02-04 14:16 | P.PN_ITS ---
Subjective Subjective: No acute events overnight. Has remained stable on telemetry. No further episodes of palpitations. Patient seen for stress test today. Denies any nausea, vomiting, headache. Asking if he can go home today. We discussed we will have to follow-up on stress test results before planning on discharge. Vitals/I&O/Wt Last Vital Signs Temp 97.6 F 02/04/22 12:19 Pulse 82 02/04/22 12:19 Resp 18 02/04/22 04:10 BP 143/71 02/04/22 12:19 Pulse Ox 96 02/04/22 12:19 O2 Del Method 02/04/22 12:19 O2 Flow Rate 2 02/03/22 02:20 02/03/22 02/04/22 02/04/22 22:59 06:59 14:59 Intake Total 935 / 1415 596 / 596 Output Total 200 / 600 400 / 1000 Balance 735 / 815 -400 / 415 596 / 596 Weight last 48 hrs Weight 84.051 kg Weight 84.141 kg Weight 84.822 kg Physical Exam Narrative: Hard of hearing Const: COMMON NORMALS: patient oriented x3 and alert GENERAL APPEARANCE: cooperative ORIENTATION/CONSCIOUSNESS: Yes awake HENMT: COMMON NORMALS: oropharynx normal Neck/C-Spine: COMMON NORMALS: no JVD Resp: COMMON NORMALS: normal respiratory effort and clear to auscultation bilaterally AUSCULTATION: clear to auscultation bilaterally Cardio: COMMON NORMALS: no JVD, regular rhythm, S1 normal heart sound present, S2 normal heart sound present and No murmurs present (Cardio) RATE: bradycardic RHYTHM: regular rhythm HEART SOUNDS: S1 normal heart sound present and S2 normal heart sound present GI: COMMON NORMALS: Normal to inspection, nondistended, normoactive bowel sounds present, Soft to palpation and non-tender PALPATION: Yes Soft to palpation Extremity: COMMON NORMALS: no joint enlargement and no pedal edema Neuro: COMMON NORMALS: patient oriented x3 and moves all extremities SENSORIUM/ORIENTATION: Yes alert Skin: COMMON NORMALS: no rashes or lesions noted GENERAL SKIN EXAM: no rashes or lesions noted Data : 02/04/22 05:03 02/04/22 04:21 A&P Assessment and plan (1) Pre-syncope: Most likely secondary to arrhythmia. Appreciated ICD interrogation with multiple episodes of bladder tachycardia requiring ICD firing. 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 Will monitor orthostatics. Limited echocardiogram results appreciated. EF 50%, moderately increased LA size, PASP of 40 mmHg. Monitor telemetry. Appreciate cardiology recommendations. Possibility of stress test in a.m. to rule out ischemic nature of arrhythmia. (2) Palpitations: Secondary to multiple episodes of VT and ICD firing (3) Hypokalemia: Overall received 120 mEq of potassium since admission. Repeat potassium 2.9. Receiving 40 mg of IV K rider. Replete with 40 mg of oral every hourly for 2 doses. Repeat magnesium and potassium at 4 PM. (4) Hyponatremia: Possibly hypovolemic hyponatremia. He is on diuretics at home. Hold diuretics for now, regular diet. Reassess sodium. (5) Troponin level elevated: Appears to have some chronic elevation in the setting of CKD. Denies chest pain or pressure. However, has had palpitations and reports presyncopal event. Possibly stress test above. (6) Gingival nodule: Lower left inner gum nodule. Will need outpatient follow-up. Plan Restart chronic medications including metolazone 2.5 mg every 72 hour with 12 dose on 02/04. Restart gabapentin 100 g twice daily, finasteride 5 mg daily, Flomax 0.4 mg daily. Analgesia: Tylenol as needed. Glycemic control: Not needed. Nutrition: Regular diet CODE STATUS: Full code PUD prophylaxis: Protonix DVT prophylaxis: Heparin 5000 every 12 hourly Discharge planning: Home with caregiver once medically stable. Continue with care at CSU level. Plan for the day: Repeat potassium in evening. Potassium 20 mg oral one-time. Follow-up stress test results. We will plan on further management of angiogram versus discharge as per result of stress test. Continue with telemetry. Watch for fluid overload. This documentation was created by [employer] grinding machine tender software. Every effort was made to ensure accuracy of grinding machine tender. Any obvious errors or omissions should be clarified with the author of the document. Attestations Medical Necessity Statement*: Requires further hospitalization for management of syncope/presyncope secondary to multiple episodes of arrhythmia most likely from hypokalemia while ischemic etiology ruled out Time Spent in Patient Care: Greater than 35 minutes Coding Level of Care Code Acute Compliance Monitor for g Fwd Diagnoses Pre-syncope R55 Palpitations R00.2 Hypokalemia E87.6 Hyponatremia E87.1 Troponin level elevated R77.8 Gingival nodule K06.8
[2022-02-04] MEDS: potassium chloride ER 20 mEq Tablet PO (14:42)
--- NOTE | 2022-02-04 18:55 | NMCV_ITS ---
NM margie perf SPECT r/s* [id number] Roland Diaz Age: 86 Gender: M : 1935 Exam Date: 02/04/2022 06:52 Ordering Phys: Chucho Murray MD ([email or web address]) Technologist: REID Kruse Exam Location: [facility] Indications: CP STRESS TEST [facility] IMAGE PROTOCOL Rest/Stress 1 Lexiscan Day Radiopharmaceutical Dose (mCi) Administration Site Administered by Rest: Tc-99m 10.4 IV REID Kruse Sestamibi Stress:Tc-99m 32.8 IV REID Kruse Sestamibi Rest: 04-Feb-2022 60 Discovery 630 Stress: 04-Feb-2022 30 Discovery 630 0.4mg Lexiscan. Supine position only as patient was unable to lay prone. SPECT RESULTS Technical Quality: Good Raw Data Analysis: Normal Image Corrections: No attenuation or motion correction applied Summed Stress Score: 8 Summed Rest Score: 6 Summed Difference Score: 8 PERFUSION FINDINGS Small to moderate area of moderate to severely decreased tracer uptake in the basal, mid and apical inferior; basal inferolateral wall regions with almost complete reversibility FUNCTIONAL RESULTS (calculated via Gated SPECT) Stress Image LV EF (%): 49 Stress EDV (mL):267 TID: 1.07 Stress ESV (mL):137 FUNCTIONAL FINDINGS: Segmental wall motion analysis revealed mild diffuse hypokinesia of the LV apex. IMPRESSIONS 1. Myocardial perfusion imaging revealing small to moderate area of reversible defect in the inferior and inferolateral regions suggesting ischemia predominantly in the right coronary artery distribution with some involvement of the circumflex artery territory. 2. Slightly diminished LV ejection fraction of 49%. 3. LV wall motion analysis revealing mild diffuse hypokinesia of the LV apex. 4. Moderately dilated LV cavity with an end-systolic volume of 137 normal No similar previous studies are available for comparison Dr Chucho Murray MD FACC (Electronically Signed) Final Date: 04 February 2022 14:09 S
[2022-02-04 19:10] LABS: Potassium 3.7 mmol/L (3.5-5.1)
[2022-02-04] MEDS: atorvastatin 40 mg Tablet PO (19:50)
[2022-02-05 00:08] VITALS: PULSE 73; RESP 20
[2022-02-05 04:37] VITALS: BP 118/51; PULSE 64; RESP 14; TEMP 36.6; O2SAT 94
[2022-02-05 05:45] LABS: Basophils # 0.1 10^3/uL (0.0-0.1); Basophils % 1.3 %; Eosinophils # 0.4 10^3/uL (0.0-0.8); Eosinophils % 6.2 %; Hematocrit 34.1 % (42.0-52.0); Hemoglobin 10.6 g/dL (11.7-16.6); Lymphocytes # 0.6 10^3/uL (0.8-4.8); Lymphocytes % 9.2 %; Mean Corpuscular HGB Conc 31.1 g/dL (30.0-36.0); Mean Corpuscular Hemoglobin 28.1 pg (28.0-34.0); Mean Corpuscular Volume 90.5 fl (80-94); Mean Platelet Volume 9.3 fL (7.4-10.4); Monocytes # 0.8 10^3/uL (0.2-0.9); Neutrophils # 4.27 10^3/uL (1.8-7.7); Nucleated Red Blood Cells % 0 %; Platelet Count 162 10^3/cmm (130-400); Red Blood Count 3.77 10^6/uL (4.1-5.3); Red Cell Distribution Width 19.1 % (12.1-15.1); White Blood Count 6.1 10^3/uL (4.0-10.0)
[2022-02-05 05:56] VITALS: PULSE 63
[2022-02-05 06:03] LABS: Alanine Aminotransferase 8 U/L (0-41); Albumin Level 3.5 g/dL (3.5-5.2); Alkaline Phosphatase 126 U/L (40-130); Anion Gap 15.6 (5-19); Aspartate Amino Transferase 17 U/L (0-40); Blood Urea Nitrogen 43 mg/dL (8-23); Calcium 9.1 mg/dL (8.5-10.5); Carbon Dioxide 30 mmol/L (22-29); Chloride 96 mmol/L (98-107); Globulin 3.1 g/dL (1.3-4.6); Glucose 93 mg/dL (65-115); Osmolality Calculated 297 mOsm/kg (285-295); Potassium 3.6 mmol/L (3.5-5.1); Sodium 138 mmol/L (136-145); Total Bilirubin 0.5 mg/dL (0.15-1.2); Total Protein 6.6 g/dL (6.6-8.7)
--- NOTE | 2022-02-05 09:00 | PM.DCS ---
Discharge Providers Date of Admission: 02/03/22 14:55 Date of Discharge: February 05, 2022 Attending Provider at Admission: Sanjeev Fry Attending Provider at Discharge: Ifeanyi Yoo MD Consults: Cardiology: Dr. Murray Primary Care Provider: Mainor Gan Diagnoses at Discharge Discharge Diagnosis (1) Encounter for testing following appropriate discharge of implantable cardioverter-defibrillator (ICD): Status: Acute (2) Pre-syncope: Status: Acute (3) Hypokalemia: Status: Acute (4) Acute kidney injury superimposed on chronic kidney disease: Status: Acute (5) Status post endovascular aneurysm repair (EVAR): Status: Acute (6) S/P implantation of automatic cardioverter/defibrillator (AICD): Status: Acute Permanent problem details: [facility] SINGLE CHAMBER 08/07 (7) S/P TAVR (transcatheter aortic valve replacement): Status: Acute Reason for Visit Reason for Visit: chest pain Hospital Course Hospital Course Roland Diaz is a 86 year old male with multiple medical problems including coronary artery disease, multiple PCI's, ventricular arrhythmia, aortic valve replacement, etc.? Present with complaints of palpitations and some near syncopal episodes.? He had a multiple ICD discharges on the device telemetry.? He was found to be hypokalemic in the emergency room.? His troponin I was found to be elevated.? Cardiology was consulted. It is believed his symptoms of multiple episodes of VT/V. fib were secondary to hypokalemia. Potassium was gradually repleted. Patient diuretic therapy was withheld during hospitalization. Patient did not have any further episodes of syncope, arrhythmias during hospitalization. To rule out ischemic cause he underwent Lexiscan stress test on 02/04.He was found to have a small to moderate area of moderate to severely decreased tracer uptake in the inferior and inferolateral regions with significant reversibility, suggesting ischemia in the distribution of the right coronary artery/circumflex artery. He does not have any significant chest pains at rest.? The only time he had the pain since his hospital admission was during the Lexiscan infusion.? In view of his stage IV kidney disease, it would be appropriate to optimize his medical treatment and hold off on the cardiac catheterization at this time.? Started him on isosorbide mononitrate 30 mg p.o. daily. He has been discharged medically stable condition on adjusted medications. He is not to take hydralazine anymore. He is to take isosorbide 30 mg as above. He is also not to take Lasix anymore on a daily basis. He is to check his body weight daily at home. If his body weight increases by 5 pounds of the current weight he will start taking Lasi again on as-needed basis. Body weight comes down to his dry weight. On the day of Lasix use to take potassium as well. Discharge plan were discussed in detail with the patient and he verbalized understanding. He will repeat CMP with his primary care provider within next 1 week. 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 Physical Exam Narrative: Hard of hearing Const: COMMON NORMALS: patient oriented x3 and alert GENERAL APPEARANCE: cooperative ORIENTATION/CONSCIOUSNESS: Yes awake HENMT: COMMON NORMALS: oropharynx normal Neck/C-Spine: COMMON NORMALS: no JVD Resp: COMMON NORMALS: normal respiratory effort and clear to auscultation bilaterally AUSCULTATION: clear to auscultation bilaterally Cardio: COMMON NORMALS: no JVD, regular rhythm, S1 normal heart sound present, S2 normal heart sound present and No murmurs present (Cardio) RATE: bradycardic RHYTHM: regular rhythm HEART SOUNDS: S1 normal heart sound present and S2 normal heart sound present GI: COMMON NORMALS: Normal to inspection, nondistended, normoactive bowel sounds present, Soft to palpation and non-tender PALPATION: Yes Soft to palpation Extremity: COMMON NORMALS: no joint enlargement and no pedal edema Neuro: COMMON NORMALS: patient oriented x3 and moves all extremities SENSORIUM/ORIENTATION: Yes alert Skin: COMMON NORMALS: no rashes or lesions noted GENERAL SKIN EXAM: no rashes or lesions noted Discharge Data Studies Completed and Pending Completed Studies During Hospitalization Category Date Time Status Sestamibi Stress Test Request Routine Exams 02/04/22 06:45 Draft XR chest 1V portable [id number] Stat Exams 02/02/22 20:24 Completed NM margie perf SPECT r/s* [id number] Routine Nuc Med 02/04/22 18:55 Completed CV. echo limited [id number] Routine Ultrasound 02/02/22 21:57 Completed Pending at discharge Category Date Time Status Sestamibi Stress Test Request Routine Exams 02/03/22 18:55 Stop Req Radiology Impressions Chest X-Ray 02/02/22 20:24 IMPRESSION: 1. Cardiomegaly. 2. Left lower lobe atelectasis versus minimal infiltrate. 3. Emphysematous changes suspected. Lexiscan: PERFUSION FINDINGS ?Small to moderate area of moderate to severely decreased tracer uptake in the?basal, mid and apical inferior; basal inferolateral wall regions with almost ?complete reversibility ?FUNCTIONAL RESULTS ? ? (calculated via Gated SPECT) ? Stress Image LV EF (%):? ? 49 ? Stress EDV (mL):267? TID:? 1.07 ? Stress ESV (mL):137 ?FUNCTIONAL FINDINGS: ?Segmental wall motion analysis revealed mild diffuse hypokinesia of the LV?apex. ?IMPRESSIONS ?1.? Myocardial perfusion imaging revealing small to moderate area of reversible?defect in the inferior and inferolateral regions suggesting ischemia ?predominantly in the right coronary artery distribution with some involvement?of the circumflex artery territory. ?2.? Slightly diminished LV ejection fraction of 49%. ?3.? LV wall motion analysis revealing mild diffuse hypokinesia of the LV apex. ?4.? Moderately dilated LV cavity with an end-systolic volume of 137 normal?No similar previous studies are available for comparison ?Dr Chucho Murray MD [facility] ?(Electronically Signed) ?Final Date:? ? ? 04 February 2022 ? 14:09 Laboratory Results WBC 6.1 10^3/uL (4.0-10.0) 02/05/22 05:32 RBC 3.77 10^6/uL (4.1-5.3) L 02/05/22 05:32 Hgb 10.6 g/dL (11.7-16.6) L 02/05/22 05:32 Hct 34.1 % (42.0-52.0) L 02/05/22 05:32 MCV 90.5 fl (80-94) 02/05/22 05:32 MCH 28.1 pg (28.0-34.0) 02/05/22 05:32 MCHC 31.1 g/dL (30.0-36.0) 02/05/22 05:32 RDW 19.1 % (12.1-15.1) H 02/05/22 05:32 Plt Count 162 10^3/cmm (130-400) 02/05/22 05:32 MPV 9.3 fL (7.4-10.4) 02/05/22 05:32 Neut % (Auto) 70.0 % 02/05/22 05:32 Lymph % (Auto) 9.2 % 02/05/22 05:32 [place] % (Auto) 13.0 % 02/05/22 05:32 Eos % (Auto) 6.2 % 02/05/22 05:32 Baso % (Auto) 1.3 % 02/05/22 05:32 Neut # (Auto) 4.27 10^3/uL (1.8-7.7) 02/05/22 05:32 Lymph # (Auto) 0.6 10^3/uL (0.8-4.8) L 02/05/22 05:32 [place] # (Auto) 0.8 10^3/uL (0.2-0.9) 02/05/22 05:32 Eos # (Auto) 0.4 10^3/uL (0.0-0.8) 02/05/22 05:32 Baso # (Auto) 0.1 10^3/uL (0.0-0.1) 02/05/22 05:32 Nucleated RBC % (auto) 0 % 02/05/22 05:32 Nucleated RBCs # 0.0 /100WBC 02/05/22 05:32 Sodium 138 mmol/L (136-145) 02/05/22 05:32 Potassium 3.6 mmol/L (3.5-5.1) 02/05/22 05:32 Chloride 96 mmol/L (98-107) L 02/05/22 05:32 Carbon Dioxide 30 mmol/L (22-29) H 02/05/22 05:32 Anion Gap 15.6 (5-19) 02/05/22 05:32 BUN 43 mg/dL (8-23) H 02/05/22 05:32 Creatinine 2.1 mg/dL (0.7-1.2) H 02/05/22 05:32 GFR Calculation Not Reportable 02/05/22 05:32 Glucose 93 mg/dL (65-115) 02/05/22 05:32 Calculated Osmolality 297 mOsm/kg (285-295) H 02/05/22 05:32 Calcium 9.1 mg/dL (8.5-10.5) 02/05/22 05:32 Magnesium 2.7 mg/dL (1.7-2.3) H 02/03/22 16:52 Total Bilirubin 0.5 mg/dL (0.15-1.2) 02/05/22 05:32 AST 17 U/L (0-40) 02/05/22 05:32 ALT 8 U/L (0-41) 02/05/22 05:32 Alkaline Phosphatase 126 U/L (40-130) 02/05/22 05:32 Troponin T Baseline 150 ng/L (0-15) H* 02/02/22 19:45 Troponin T 120 Minute 127.6 ng/L (0-15) H 02/02/22 22:24 Delta Troponin T -22.4 ABS# (0-10) L 02/02/22 22:24 Troponin T Hi Sens 6Hr 128.5 ng/L (0-15) H 02/03/22 02:18 Troponin T Hi Sens 6Hr Delta -21.5 ng/L (0-12) L 02/03/22 02:18 Total Protein 6.6 g/dL (6.6-8.7) 02/05/22 05:32 Albumin 3.5 g/dL (3.5-5.2) 02/05/22 05:32 Globulin 3.1 g/dL (1.3-4.6) 02/05/22 05:32 TSH 0.89 uIU/mL (0.27-4.20) 02/03/22 02:18 Vitals Last Vital Signs Temp 97.9 F 02/05/22 04:37 Pulse 63 02/05/22 05:56 Resp 14 02/05/22 04:37 BP 118/51 02/05/22 04:37 Pulse Ox 94 02/05/22 04:37 O2 Del Method 02/04/22 12:19 O2 Flow Rate 2 02/03/22 02:20 Discharge Plan Discharge Patient Disposition: Home Health Service Condition: Stable Prescriptions: New aspirin 325 mg Tablet 325 mg PO DAILY Qty: 30 0RF isosorbide mononitrate 30 mg Tablet Extended Release 24 Hr 30 mg PO DAILY Qty: 30 0RF Continued docusate sodium [Colace] 100 mg capsule 100 mg PO BID PRN (Reason: Constipation) tamsulosin 0.4 mg capsule 0.4 mg PO DAILY Hold Instructions: Doctor's Order atorvastatin 40 mg tablet 40 mg PO DAILY Qty: 90 3RF nitroglycerin [Nitrostat] 0.4 mg tablet, sublingual 0.4 mg SUBLINGUAL Q5M PRN (Reason: Chest Pain) Qty: 25 3RF pantoprazole 40 mg tablet,delayed release (DR/EC) 40 mg PO DAILY Qty: 90 3RF amiodarone 200 mg tablet 200 mg PO DAILY Qty: 90 3RF finasteride 5 mg tablet 5 mg PO DAILY ondansetron 8 mg tablet,disintegrating 8 mg PO 3XD PRN (Reason: Nausea And Vomiting) Qty: 20 0RF guaifenesin 600 mg tablet extended release 12hr 600 mg PO Q12H PRN (Reason: congestion) Qty: 60 0RF Lasix 40 mg tablet 40 mg PO DIRECTED Rx Instructions: Alternate 40mg one day and 20mg next day gabapentin 100 mg capsule 100 mg PO BID Qty: 60 0RF ferrous sulfate 325 mg (65 mg iron) tablet 325 mg PO DAILY Qty: 90 1RF Rx Instructions: with breakfast metolazone 5 mg tablet 2.5 mg PO Q72H Qty: 15 0RF ascorbic acid (vitamin C) [Vitamin C] 1,000 mg Tablet 1,000 mg PO DAILY calcium carbonate 500 mg calcium (1,250 mg) Tablet,Chewable 500 mg PO TID PRN (Reason: Indigestion) sennosides-docusate sodium [Senna with Docusate Sodium] 8.6-50 mg Tablet 1 tab-cap PO DAILY vitamin A 10,000 unit Capsule 10,000 unit PO DAILY cyanocobalamin (vitamin B-12) [Vitamin B-12] 250 mcg Tablet 250 mcg PO DAILY fluticasone propionate 50 mcg/actuation spray,suspension 1 spray INTRANASAL DAILY PRN (Reason: Congestion) Rx Instructions: administer into each nostril polyethylene glycol 3350 [Miralax] 17 gram powder in packet 17 g PO DAILY PRN (Reason: Constipation) Changed potassium chloride 20 mEq tablet extended release 40 meq PO DIRECTED Qty: 20 0RF Rx Instructions: Alternate 20mEq one day and 10mEq next day Discontinued aspirin [Adult Low Dose Aspirin] 81 mg tablet,delayed release (DR/EC) 81 mg PO DAILY hydralazine 25 mg tablet 75 mg PO BID Qty: 90 3RF Discharge Orders: Discharge Order (Routine); Ordered 02/05/22 Ordered By: Ifeanyi Yoo Referrals: [facility] [Outside] Alla Sen FNP [Nurse Practitioner] - 02/17/22 1:45 pm (Please follow-up with Alla Sen on at 1:45P.M. If you have any questions or need to reschedule. Please call ) Mainor Gan NP [Primary Care Provider] - 02/17/22 8:20 am (Please follow-up with Mainor Gan on February 17 at 8:20A.M. If you have any questions or need to reschedule. Please call ) Jessica James MD [Physician] - 1 month (During your appointment with Alla Sen you will be schedule for an follow-up with Dr. James. ) Discharge Diet: Cardiac Discharge Activity: Resume usual activity and Increase activity as tolerated Patient Instructions: Aspirin (By mouth), Isosorbide Mononitrate (By mouth) (Imdur, Imdur ER, Ismo), Supraventricular Tachycardia (DC), Acute Kidney Injury (DC), Hyponatremia (DC), Hypokalemia (DC), Near Syncope (DC), Opioid Safety Activity Restrictions/Additional Instructions: Medication has been changed as below. Dose of aspirin has been increased to 325 mg daily. Hydralazine has been stopped. Insert you are being discharged on Imdur 30 mg oral daily. Do not take Lasix daily. Take Lasix only when your body weight increases by 5 pound. Please check your body weight daily at home and watch her body weight increases by 5 pounds you can start taking Lasix again till the time it comes back to the dry weight of today. On the day of taking Lasix please take potassium. Please follow-up with nurse practitioner from cardiology in [address] James in 1 month. Please repeat CMP with a primary care provider in 1 week. Discharge Attestations Time Spent in Discharge Care*: greater than 30 min Specific Discharge Activities: educating patient, discussing with pcp/other providers, discussing with manager case/social workers/dc planners, documenting/other paperwork and evaluating patient/reviewing data Status at Discharge: Cognitive status at discharge: cognitively intact, Behavioral status at discharge: cooperative, Functional status at discharge: uses cane/walker, Overall status at discharge: patient is progressing back to baseline Quality Metrics Clinical Quality Measures [ No reported AMI, CVA or VTE this stay] Coding Level of Care Code Acute Chg FW DC note History Comprehensive Exam Comprehensive Medical Decision Making Moderate Complexity Diagnoses Encounter for testing following appropriate discharge of implantable cardioverter-defibrillator (ICD) Z45.02 Pre-syncope R55 Hypokalemia E87.6 Acute kidney injury superimposed on chronic kidney disease N17.9; N18.9 Status post endovascular aneurysm repair (EVAR) Z98.890; Z86.79 S/P implantation of automatic cardioverter/defibrillator (AICD) Z95.810 S/P TAVR (transcatheter aortic valve replacement) Z95.2
[2022-02-05] MEDS: gabapentin 100 mg Capsule PO (09:11)
[2022-02-05] MEDS: amiodarone 200 mg Tablet PO (09:11)
[2022-02-05] MEDS: aspirin 325 mg Tablet PO (09:11)
[2022-02-05] MEDS: isosorbide mononitrate ER 30 mg Tablet PO (09:11)
[2022-02-05] MEDS: pantoprazole DR 40 mg Tablet PO (09:11)
[2022-02-05] MEDS: ferrous sulfate EC 325 mg Tablet PO (09:11)
[2022-02-05] MEDS: tamsulosin 0.4 mg Capsule PO (09:11)
[2022-02-05] MEDS: finasteride 5 mg Tablet PO (09:11)
[2022-02-05] MEDS: sennosides-docusate Tablet 2 TAB PO (09:17)
[2022-02-05 11:05] VITALS: BP 133/69; PULSE 67; RESP 22
[2022-02-05 12:10] VITALS: BP 133/69; PULSE 67; RESP 22
--- NOTE | 2022-02-05 12:54 | PC.NURSE ---
discharge instructions given and explained.pt verb understanding of instructions.discharged via w/c to exit.spouse to drive pt home
== END 2022-02-05 12:55 | disposition home health service (06) | DRG 640 ==
LOC: ER 21:21 → CSU 21:33
PROVIDERS: Internal Medicine Cardiovascular Disease; Admitting Provider Internal Medicine; Emergency Provider Emergency Medicine; PCP Clinical Nurse Specialist Adult Health; Visit Provider Student in an Organized Health Care Education/Training Program
DX: E87.6 Hypokalemia (principal); I49.01 Ventricular fibrillation; I13.0 Hypertensive heart and chronic kidney disease with heart failure and stage 1 through stage 4 chronic kidney disease, or unspecified chronic kidney disease; I50.42 Chronic combined systolic (congestive) and diastolic (congestive) heart failure; N18.4 Chronic kidney disease, stage 4 (severe); I47.1 Supraventricular tachycardia; I25.10 Atherosclerotic heart disease of native coronary artery without angina pectoris; Z95.5 Presence of coronary angioplasty implant and graft; I25.5 Ischemic cardiomyopathy; Z95.810 Presence of automatic (implantable) cardiac defibrillator; I71.40 Abdominal aortic aneurysm, without rupture, unspecified; G62.9 Polyneuropathy, unspecified; I73.9 Peripheral vascular disease, unspecified; K21.9 Gastro-esophageal reflux disease without esophagitis; Z85.828 Personal history of other malignant neoplasm of skin; E78.5 Hyperlipidemia, unspecified; E03.9 Hypothyroidism, unspecified; I27.20 Pulmonary hypertension, unspecified; I08.1 Rheumatic disorders of both mitral and tricuspid valves; Z45.02 Encounter for adjustment and management of automatic implantable cardiac defibrillator; K06.9 Disorder of gingiva and edentulous alveolar ridge, unspecified; E87.1 Hypo-osmolality and hyponatremia; Z95.3 Presence of xenogenic heart valve; Z86.73 Personal history of transient ischemic attack (TIA), and cerebral infarction without residual deficits
CPT/HCPCS: 36415; 71045; 78452; 80048; 80053; 83735; 84132; 84443; 84484; 85025; 93005; 93017; 93308; 96365; 96372; 96375; 99285; A9500; G0378; J1644; J2785; J3475; J3480

== ENCOUNTER → 2022-02-17 13:42 | Outpatient (BNVA) | payer MEDICARE, SELFPAY | PROVIDERS: PCP Clinical Nurse Specialist Adult Health; Visit Provider Nurse Practitioner Family | DX: I47.20 Ventricular tachycardia, unspecified (principal); I11.0 Hypertensive heart disease with heart failure; I50.22 Chronic systolic (congestive) heart failure; D64.9 Anemia, unspecified; E87.6 Hypokalemia | CPT/HCPCS: 80053; 83540; 85025; 99213 ==

== ENCOUNTER → 2022-02-24 14:57 | Outpatient (BNVA) | payer MEDICARE, SELFPAY | PROVIDERS: PCP Clinical Nurse Specialist Adult Health; Visit Provider Clinical Nurse Specialist Adult Health | DX: E87.6 Hypokalemia (principal) | CPT/HCPCS: 80048 ==

== ENCOUNTER → 2022-03-31 14:19 | Outpatient (BNVA) | payer MEDICARE, SELFPAY | PROVIDERS: PCP Clinical Nurse Specialist Adult Health; Visit Provider Clinical Nurse Specialist Adult Health | DX: D50.8 Other iron deficiency anemias (principal); E87.1 Hypo-osmolality and hyponatremia | CPT/HCPCS: 80053; 83540; 85025 ==

== ENCOUNTER 2022-04-24 13:40 | Outpatient (CLI) | payer MEDICARE, SELFPAY ==
[2022-04-24 14:39] LABS: Vitamin B12 1191 pg/mL (232-1245)
== END 2022-04-24 13:41 | disposition home or self-care (01) ==
LOC: LAB 13:41
PROVIDERS: PCP Clinical Nurse Specialist Adult Health; Visit Provider Family Medicine
DX: N18.9 Chronic kidney disease, unspecified (principal)
CPT/HCPCS: 82607

== ENCOUNTER → 2022-04-29 15:19 | Outpatient (BNVA) | payer MEDICARE, SELFPAY | PROVIDERS: PCP Clinical Nurse Specialist Adult Health; Visit Provider Clinical Nurse Specialist Adult Health | DX: D50.8 Other iron deficiency anemias (principal); E53.8 Deficiency of other specified B group vitamins | CPT/HCPCS: 80053; 82607; 83540; 85025 ==

== ENCOUNTER → 2022-05-27 15:39 | Outpatient (BNVA) | payer MEDICARE, SELFPAY | PROVIDERS: PCP Clinical Nurse Specialist Adult Health; Visit Provider Clinical Nurse Specialist Adult Health | DX: E55.9 Vitamin D deficiency, unspecified (principal); G62.9 Polyneuropathy, unspecified; R29.898 Other symptoms and signs involving the musculoskeletal system | CPT/HCPCS: 80053; 82306; 82607 ==

== ENCOUNTER → 2022-06-16 13:50 | Outpatient (BNVA) | payer MEDICARE, SELFPAY | PROVIDERS: PCP Clinical Nurse Specialist Adult Health; Visit Provider Otolaryngology | DX: H81.10 Benign paroxysmal vertigo, unspecified ear (principal); I95.1 Orthostatic hypotension | CPT/HCPCS: 99203 ==

== ENCOUNTER → 2022-06-24 15:14 | Outpatient (BNVA) | payer MEDICARE, SELFPAY | PROVIDERS: PCP Clinical Nurse Specialist Adult Health; Visit Provider Clinical Nurse Specialist Adult Health | DX: E87.6 Hypokalemia (principal) | CPT/HCPCS: 83735 ==

== ENCOUNTER → 2022-07-08 13:41 | Outpatient (BNVA) | payer MEDICARE, SELFPAY | PROVIDERS: PCP Clinical Nurse Specialist Adult Health; Visit Provider Nurse Practitioner Family | DX: L57.0 Actinic keratosis (principal); D69.2 Other nonthrombocytopenic purpura; L72.0 Epidermal cyst; L85.3 Xerosis cutis; L82.1 Other seborrheic keratosis; L57.8 Other skin changes due to chronic exposure to nonionizing radiation; L81.4 Other melanin hyperpigmentation; D22.5 Melanocytic nevi of trunk; Z12.83 Encounter for screening for malignant neoplasm of skin | CPT/HCPCS: 17004; 99213 ==

== ENCOUNTER 2022-07-21 12:54 | Outpatient (RCR) | payer MEDICARE, SELFPAY | END 2022-08-05 23:59 | disposition home or self-care (01) | LOC: SPT 12:54 | PROVIDERS: PCP Otolaryngology; Visit Provider Otolaryngology | DX: H81.10 Benign paroxysmal vertigo, unspecified ear (principal) | CPT/HCPCS: 95992; 97162 ==

== ENCOUNTER → 2022-07-28 11:41 | Outpatient (BNVA) | payer MEDICARE, SELFPAY | PROVIDERS: PCP Otolaryngology; Visit Provider Internal Medicine Cardiovascular Disease | DX: I95.1 Orthostatic hypotension (principal); H81.10 Benign paroxysmal vertigo, unspecified ear; D50.8 Other iron deficiency anemias; I11.0 Hypertensive heart disease with heart failure; I50.22 Chronic systolic (congestive) heart failure; I25.5 Ischemic cardiomyopathy; I25.10 Atherosclerotic heart disease of native coronary artery without angina pectoris; E78.5 Hyperlipidemia, unspecified; I27.20 Pulmonary hypertension, unspecified; Z95.820 Peripheral vascular angioplasty status with implants and grafts; I34.0 Nonrheumatic mitral (valve) insufficiency; Z95.810 Presence of automatic (implantable) cardiac defibrillator; Z98.890 Other specified postprocedural states; Z86.79 Personal history of other diseases of the circulatory system; Z95.2 Presence of prosthetic heart valve | CPT/HCPCS: 99215 ==

== ENCOUNTER → 2022-08-06 14:56 | Outpatient (BNVA) | payer MEDICARE, SELFPAY | PROVIDERS: PCP Otolaryngology; Visit Provider Clinical Nurse Specialist Adult Health | DX: D50.8 Other iron deficiency anemias (principal); E87.6 Hypokalemia; I50.22 Chronic systolic (congestive) heart failure | CPT/HCPCS: 80053; 83540; 83550; 83880; 85025 ==

== ENCOUNTER → 2022-09-03 14:41 | Outpatient (BNVA) | payer MEDICARE, SELFPAY | PROVIDERS: PCP Otolaryngology; Visit Provider Clinical Nurse Specialist Adult Health | DX: I10 Essential (primary) hypertension (principal); D50.8 Other iron deficiency anemias | CPT/HCPCS: 80048; 83540 ==

== ENCOUNTER → 2022-11-04 15:23 | Outpatient (BNVA) | payer MEDICARE, SELFPAY | PROVIDERS: PCP Otolaryngology; Visit Provider Clinical Nurse Specialist Adult Health | DX: I50.22 Chronic systolic (congestive) heart failure (principal) | CPT/HCPCS: 80053; 83880 ==

== ENCOUNTER → 2022-11-10 14:10 | Outpatient (BNVA) | payer MEDICARE, SELFPAY | PROVIDERS: PCP Otolaryngology; Visit Provider Internal Medicine Cardiovascular Disease | DX: I13.0 Hypertensive heart and chronic kidney disease with heart failure and stage 1 through stage 4 chronic kidney disease, or unspecified chronic kidney disease (principal); N18.30 Chronic kidney disease, stage 3 unspecified; I50.22 Chronic systolic (congestive) heart failure; I25.5 Ischemic cardiomyopathy; I25.10 Atherosclerotic heart disease of native coronary artery without angina pectoris; Z98.890 Other specified postprocedural states; Z86.79 Personal history of other diseases of the circulatory system; I27.20 Pulmonary hypertension, unspecified; Z95.810 Presence of automatic (implantable) cardiac defibrillator | CPT/HCPCS: 99214 ==

== ENCOUNTER → 2023-01-05 14:22 | Outpatient (BNVA) | payer MEDICARE, SELFPAY | PROVIDERS: PCP Otolaryngology; Visit Provider Nurse Practitioner Family | DX: L57.0 Actinic keratosis (principal); D18.01 Hemangioma of skin and subcutaneous tissue; D69.2 Other nonthrombocytopenic purpura; L72.0 Epidermal cyst; Z12.83 Encounter for screening for malignant neoplasm of skin; L85.3 Xerosis cutis; D22.5 Melanocytic nevi of trunk; L81.4 Other melanin hyperpigmentation; L57.8 Other skin changes due to chronic exposure to nonionizing radiation; L82.1 Other seborrheic keratosis; Z85.828 Personal history of other malignant neoplasm of skin; B07.8 Other viral warts | CPT/HCPCS: 17004; 17110; 99213 ==

== ENCOUNTER → 2023-01-07 15:21 | Outpatient (BNVA) | payer MEDICARE, SELFPAY | PROVIDERS: PCP Clinical Nurse Specialist Adult Health; Visit Provider Clinical Nurse Specialist Adult Health | DX: D50.8 Other iron deficiency anemias (principal); E87.6 Hypokalemia | CPT/HCPCS: 80048; 80053; 83540; 83550 ==

== ENCOUNTER → 2023-02-25 17:06 | Outpatient (BNVA) | payer MEDICARE, SELFPAY | PROVIDERS: PCP Clinical Nurse Specialist Adult Health; Visit Provider Internal Medicine Cardiovascular Disease | DX: Z45.010 Encounter for checking and testing of cardiac pacemaker pulse generator [battery] (principal) | CPT/HCPCS: 93296 ==

== ENCOUNTER → 2023-05-05 15:44 | Outpatient (BNVA) | payer MEDICARE, SELFPAY | PROVIDERS: PCP Clinical Nurse Specialist Adult Health; Visit Provider Clinical Nurse Specialist Adult Health | DX: E78.5 Hyperlipidemia, unspecified (principal); I10 Essential (primary) hypertension; D64.9 Anemia, unspecified | CPT/HCPCS: 80053; 80061; 83540; 85025 ==

== ENCOUNTER → 2023-06-04 11:16 | Outpatient (BNVA) | payer MEDICARE, SELFPAY | PROVIDERS: PCP Clinical Nurse Specialist Adult Health; Visit Provider Internal Medicine Cardiovascular Disease | DX: I13.0 Hypertensive heart and chronic kidney disease with heart failure and stage 1 through stage 4 chronic kidney disease, or unspecified chronic kidney disease (principal); N18.30 Chronic kidney disease, stage 3 unspecified; I50.22 Chronic systolic (congestive) heart failure; E78.5 Hyperlipidemia, unspecified; I25.5 Ischemic cardiomyopathy; I95.1 Orthostatic hypotension; I27.20 Pulmonary hypertension, unspecified; K21.9 Gastro-esophageal reflux disease without esophagitis; D50.8 Other iron deficiency anemias; I35.0 Nonrheumatic aortic (valve) stenosis; Z95.2 Presence of prosthetic heart valve; I34.0 Nonrheumatic mitral (valve) insufficiency; Z95.820 Peripheral vascular angioplasty status with implants and grafts | CPT/HCPCS: 99215 ==

== ENCOUNTER 2023-07-07 17:49 | Emergency (ER) | payer MEDICARE, SELFPAY ==
--- NOTE | 2023-07-07 17:52 | XRR_ITS ---
PROCEDURE INFORMATION: Exam: XR Chest Exam date and time: 07/07/2023 6:28 PM Age: 87 years old Clinical indication: Cough and shortness of breath; Prior surgery; Surgery date: 6+ months; Surgery type: Pacer; Additional info: SOB TECHNIQUE: Imaging protocol: Radiologic exam of the chest. Views: 1 view. COMPARISON: CR XR chest 1V portable [id number] 02/02/2022 9:38 PM FINDINGS: Lungs: No focal consolidation. Mid right lung hazy opacities compatible with atelectasis or developing infection in the proper clinical setting. Pleural spaces: No evidence of pneumothorax. No evidence of pleural effusion. Heart/Mediastinum: Tortuosity and ectasia of the thoracic aorta. Left subclavian approach single lead pacemaker ICD. Postsurgical changes of the mediastinum compatible with prior aortic valve replacement. Bones/joints: No evidence of acute osseous abnormality. XR/XR chest 1V portable [id number] IMPRESSION: 1. Tortuosity and ectasia of the thoracic aorta. If there is concern for aortic pathology, consider correlation with CT. 2. Mid right lung hazy opacities compatible with atelectasis or developing infection in the proper clinical setting.
[2023-07-07 18:08] VITALS: BP 177/84; PULSE 76; RESP 20; TEMP 37.2; O2SAT 94
--- NOTE | 2023-07-07 18:51 | ECG_ITS ---
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 Measurements Intervals [place] Rate: 76 P: 37 MS: 214 QRS: 47 QRSD: 189 T: 10 QT: 476 QTc: 537 Interpretive Statements LEFT BUNDLE BRANCH BLOCK [120+ ms QRS DURATION, 80+ ms Q/S IN V1/V2, 85+ ms R IN I/aVL/V5/V6] Compared to ECG 02/03/2022 02:20:35 Sinus bradycardia no longer present First degree AV block no longer present Prolonged QT interval no longer present Electronically Signed On 07-08-2023 15:25:55 CDT by Ryan Houser M.D. [email or web address]
--- NOTE | 2023-07-07 18:52 | ED_ITS ---
HPI - SOB/Dyspnea 2 General: Chief Complaint: Shortness of Breath/Dyspnea Stated Complaint: sob, cough Time Seen by Provider: 07/07/23 18:48 History of Present Illness: HPI Narrative: 87-year-old male presents emergency depa rtment with complaints of a productive cough for the previous 1 week. He states that he was diagnosed with influenza a week ago. He states for the last 2 days he has been coughing up more yellow thick phlegm. He states he does have intermittent wheezing tonight and states he feels like he is having slightly increased difficulty breathing. He states he is concerned that he is getting pneumonia. He states he does have a low- grade fever. He does endorse recent sick contacts with similar illnesses. He denies nausea vomiting fevers chills or night sweats. He states he does have a history of congestive heart failure. 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 Aortic stenosis Ventricular tachycardia Status post AICD placement Stage 3 chronic kidney disease 1.7 baseline creatinine Essential hypertension CHF (congestive heart failure) Biventricular, systolic and diastolic 02/02/2022: LVEF approximately 50% Hyperlipidemia Anemia iron deficient Hypothyroidism Vitamin B12 deficiency Allergic rhinitis Insomnia ASHD (arteriosclerotic heart disease) Ischemic cardiomyopathy EF 40 to 45%?12/01/2021 BPH (benign prostatic hyperplasia) Gynecomastia, male Acute kidney injury superimposed on chronic kidney disease Abdominal aortic aneurysm (AAA) 4.3?4.3 approximately 5.04?5.04 distally Peripheral neuropathy History of nonmelanoma skin cancer Claudication of both lower extremities Pulmonary HTN Bradycardia Heart block atrioventricular Prostate cancer SVT (supraventricular tachycardia) Cognitive dysfunction GERD (gastroesophageal reflux disease) TIA (transient ischemic attack) Surgical History (Updated 06/04/23 @ 13:44 by Ryan Houser MD) S/P TAVR (transcatheter aortic valve replacement) S/P angioplasty with stent Coronary disease status post 3 stents Status post endovascular aneurysm repair (EVAR) S/P implantation of automatic cardioverter/defibrillator (AICD) [employer] 08/07 Family History Father CAD (coronary artery disease) Mother CAD (coronary artery disease) Congestive heart failure (CHF) Brother Parkinson disease Sister Fibromyalgia Other Cancer Social History Smoking and tobacco/nicotine status: never used tobacco/nicotine Alcohol intake: never Substance/Drug Use: never Lives independently: Yes Marital status: / service: No Current occupational status: retired Current gender identity: Male Gillian/Sabianist: Religious Physical Exam 2 Narrative: EXAM NARRATIVE: Constitutional: the patient appears well nourished and of normal development. Vital signs as documented. No acute distress at present. Alert and oriented-to person, place, time and situation. Head, eyes, ears, nose, mouth, throat: Normocephalic, atraumatic. Pupils-equal, round, reactive to light. No scleral icterus. Normal-appearing external ears. Normal appearing nasal turbinates, no drainage. No obvious oral lesions, posterior oropharynx without erythema or exudates. Neck: Supple, trachea is midline, no lymphadenopathy, no jugular venous distension, thyromegaly, or carotid bruits. Carotid upstrokes are brisk bilaterally. Lungs: Scattered expiratory wheezes bilaterally, rhonchi noted on the right. Symmetrical rise and fall of chest, no obvious signs of increased work of breathing at present. Cardiac: Sinus rhythm with first-degree AV block, positive S1, S2. No murmurs, rubs or gallops that I can appreciate Abdomen: Soft, non-tender to palpation, normal active bowel sounds to all quadrants. No palpable masses, no organomegaly and abdominal bruits. Extremities: 2+ pulses in the upper extremities that are equal bilaterally, 2+ pulses in the lower extremities that are equal bilaterally. Non-edematous. Moves all extremities well, sensation to all extremities are noted. Skin: Warm, dry, intact. Course 2 Vital Signs: Vital signs: Vital Signs Temperature 99.0 F 07/07/23 18:08 Pulse Rate 72 07/07/23 20:49 Respiratory Rate 18 07/07/23 20:49 Blood Pressure 161/67 07/07/23 19:33 Pulse Oximetry 95 07/07/23 20:49 Oxygen Delivery Me thod Room Air 07/07/23 19:56 MDM - SOB/Dyspnea Medical Decision Making Physical exam completed and documented I will obtain a CBC which was essentially normal a CMP which demonstrated elevated creatinine of 1.7 which appears to be the patient's baseline. He did have slightly elevated BNP of 6574 and a baseline troponin 55. Chest x-ray did demonstrate right sided haziness concerning for pneumonia. I will provide IV antibiotics and trend his cardiac enzymes given his history of CHF. Medical Records I reviewed the patient's medical records. Lab Data I reviewed the patient's lab results. 07/07/23 19:04 07/07/23 19:04 Labs/Radiology: Radiology Impressions Chest X-Ray 07/07/23 17:52 IMPRESSION: 1. Tortuosity and ectasia of the thoracic aorta. If there is concern for aortic pathology, consider correlation with CT. 2. Mid right lung hazy opacities compatible with atelectasis or developing infection in the proper clinical setting. Laboratory Results WBC 4.20 10^3/uL (3.29-11.43) 07/07/23 19:04 RBC 3.81 10^6/uL (3.85-5.65) L 07/07/23 19:04 Hgb 11.70 g/dL (11.27-16.99) 07/07/23 19:04 Hct 36.0 % (37-53) L 07/07/23 19:04 MCV 94.5 fl (82-101) 07/07/23 19:04 MCH 30.7 pg (27-33) 07/07/23 19:04 MCHC 32.5 g/dL (30-55) 07/07/23 19:04 RDW 14.6 % (12.1-15.1) 07/07/23 19:04 Plt Count 137 10^3/cmm (157-399) L 07/07/23 19:04 MPV 9.6 fL (7.4-10.4) 07/07/23 19:04 Neut % (Auto) 75.5 % 07/07/23 19:04 Lymph % (Auto) 6.7 % 07/07/23 19:04 Day % (Auto) 14.0 % 07/07/23 19:04 Eos % (Auto) 2.9 % 07/07/23 19:04 Baso % (Auto) 0.7 % 07/07/23 19:04 Neut # (Auto) 3.17 10^3/uL (1.8-7.7) 07/07/23 19:04 Lymph # (Auto) 0.3 10^3/uL (0.8-4.8) L 07/07/23 19:04 Day # (Auto) 0.6 10^3/uL (0.2-0.9) 07/07/23 19:04 Eos # (Auto) 0.1 10^3/uL (0.0-0.8) 07/07/23 19:04 Baso # (Auto) 0.0 10^3/uL (0.0-0.1) 07/07/23 19:04 Nucleated RBC % (auto) 0 % 07/07/23 19:04 Nucleated RBCs # 0.0 /100WBC 07/07/23 19:04 Sodium 141 mmol/L (136-145) 07/07/23 19:04 Potassium 3.5 mmol/L (3.5-5.1) 07/07/23 19:04 Chloride 104 mmol/L (98-107) 07/07/23 19:04 Carbon Dioxide 26 mmol/L (22-29) 07/07/23 19:04 Anion Gap 14.5 (5-19) 07/07/23 19:04 BUN 22 mg/dL (8-23) 07/07/23 19:04 Creatinine 1.7 mg/dL (0.7-1.2) H 07/07/23 19:04 GFR Calculation Not Reportable 07/07/23 19:04 Glucose 118 mg/dL (65-115) H 07/07/23 19:04 Calculated Osmolality 296 mOsm/kg (285-295) H 07/07/23 19:04 Calcium 8.6 mg/dL (8.5-10.5) 07/07/23 19:04 Total Bilirubin 0.4 mg/dL (0.15-1.2) 07/07/23 19:04 AST 21 U/L (0-40) 07/07/23 19:04 ALT 11 U/L (0-41) 07/07/23 19:04 Alkaline Phosphatase 159 U/L (40-130) H 07/07/23 19:04 Troponin T Baseline 55 ng/L (0-15) H 07/07/23 19:04 NT-Pro-B Natriuret Pep 6574 pg/mL (0-450) H 07/07/23 19:04 Total Protein 6.8 g/dL (6.6-8.7) 07/07/23 19:04 Albumin 4.0 g/dL (3.5-5.2) 07/07/23 19:04 Globulin 2.8 g/dL (1.3-4.6) 07/07/23 19:04 All radiology interpretation(s) finalized by discharge EKG Data EKG 1: Interpretation: Twelve-lead EKG obtained at 1803 and viewed at 1805 demonstrates sinus rhythm with first-degree AV block. Patient does have a left bundle branch block noted. I reviewed his previous twelve-lead EKG and it does appear to have the same left bundle branch block noted on a previous EKG. Ventricular rate of 76 bpm, MA interval is 214, QRS duration 189, QT 476, and his QTc is 506. At present there does not appear to be any signs of ischemia or infarction. Discharge Plan Discharge Patient Disposition: Home Clinical Impression: Cough Pneumonia Qualifiers: Pneumonia type: due to unspecified organism Laterality: right Lung location: l ower lobe of lung Qualified Code(s): J18.9 - Pneumonia, unspecified organism Condition: Stable Prescriptions: New Zithromax Z-Danny 250 mg tablet See Rx Instructions PO .COMPLEX Qty: 6 0RF Rx Instructions: For 250 mg dose pack: take 500 mg today (day 1), then 250 mg for 4 days (days 2-5) guaifenesin 1,200 mg tablet extended release 12hr 1,200 mg PO BID Qty: 14 0RF benzonatate 200 mg capsule 200 mg PO TID Qty: 30 0RF No Action docusate sodium [Colace] 100 mg capsule 100 mg PO BID PRN (Reason: Constipation) nitroglycerin [Nitrostat] 0.4 mg tablet, sublingual 0.4 mg SUBLINGUAL Q5M PRN (Reason: Chest Pain) Qty: 25 3RF ondansetron 8 mg tablet,disintegrating 8 mg PO 3XD PRN (Reason: Nausea And Vomiting) Qty: 20 0RF aspirin [Adult Aspirin Regimen] 81 mg tablet,delayed release (DR/EC) 81 mg PO DAILY sodium chloride 5 % drops 1 drp ophthalmic (eye) DAILY PRN (Reason: dry eye(s)) Qty: 15 3RF zinc acetate 50 mg (zinc) capsule 50 mg PO DAILY cyanocobalamin (vitamin B-12) [Vitamin B-12] 250 mcg tablet 250 mcg PO DAILY potassium chloride 10 mEq tablet extended release 10 meq PO BID cholecalciferol (vitamin D3) 125 mcg (5,000 unit) capsule 125 mcg PO DAILY tamsulosin 0.4 mg capsule 0.4 mg PO DAILY Qty: 90 3RF Hold Instructions: Doctor's Order Rx Instructions: for urine flow clopidogrel 75 mg tablet 75 mg PO DAILY Qty: 90 3RF atorvastatin 40 mg tablet 40 mg PO DAILY Qty: 90 3RF pantoprazole 40 mg tablet,delayed release (DR/EC) 40 mg PO DAILY Qty: 90 3RF ferrous sulfate 325 mg (65 mg iron) tablet 325 mg PO DAILY Qty: 30 3RF Rx Instructions: with breakfast finasteride 5 mg tablet 5 mg PO DAILY Qty: 90 3RF Lasix 40 mg tablet 40 mg PO BID Qty: 60 11RF amiodarone 200 mg tablet 200 mg PO DAILY Qty: 90 3RF ascorbic acid (vitamin C) [Vitamin C] 1,000 mg Tablet 1,000 mg PO DAILY vitamin A 10,000 unit Capsule 10,000 unit PO DAILY polyethylene glycol 3350 [Miralax] 17 gram powder in packet 17 g PO DAILY PRN (Reason: Constipation) Discharge Orders: Discharge ED (Routine); Ordered 07/07/23 Ordered By: Noel Angel Referrals: Mainor Gan NP [Primary Care Provider] - Discharge Diet: Usual diet Discharge Activity: Resume usual activity Patient Instructions: Opioid Safety, Pain Management Activity Restrictions/Additional Instructions: Activity Restrictions/Additional Instructions: Thank you for choosing [facility] for your healthcare needs today. Please realize that you were seen in the Emergency Department and that we are providing you with an emergency medical screening exam and this may not be a complete and all inclusive of all the testing and or medical work-up that you may need to determine your ailment or severity of your illness. It is very important that you follow-up as instructed with your Primary care provider or Specialist for additional evaluation and to discuss your medical treatment plan. You may return to the Emergency Department should you have concerns or if your condition changes or worsens in any way. Coding Level of Care Code ED Community Service Organization Director for [facility]mer
[2023-07-07 19:16] LABS: Basophils % 0.7 %; Eosinophils # 0.1 10^3/uL (0.0-0.8); Eosinophils % 2.9 %; Lymphocytes # 0.3 10^3/uL (0.8-4.8); Lymphocytes % 6.7 %; Mean Corpuscular HGB Conc 32.5 g/dL (30-55); Mean Corpuscular Hemoglobin 30.7 pg (27-33); Mean Corpuscular Volume 94.5 fl (82-101); Mean Platelet Volume 9.6 fL (7.4-10.4); Monocytes # 0.6 10^3/uL (0.2-0.9); Neutrophils # 3.17 10^3/uL (1.8-7.7); Neutrophils % 75.5 %; Nucleated Red Blood Cells % 0 %; Platelet Count 137 10^3/cmm (157-399); Red Blood Count 3.81 10^6/uL (3.85-5.65); Red Cell Distribution Width 14.6 % (12.1-15.1)
[2023-07-07 19:22] VITALS: O2SAT 95
[2023-07-07 19:31] VITALS: PULSE 76; RESP 26; O2SAT 93
[2023-07-07 19:32] LABS: Troponin(5th) Baseline 55 ng/L (0-15)
[2023-07-07 19:33] VITALS: BP 161/67
[2023-07-07 19:41] LABS: Alanine Aminotransferase 11 U/L (0-41); Alkaline Phosphatase 159 U/L (40-130); Anion Gap 14.5 (5-19); Aspartate Amino Transferase 21 U/L (0-40); Blood Urea Nitrogen 22 mg/dL (8-23); Calcium 8.6 mg/dL (8.5-10.5); Carbon Dioxide 26 mmol/L (22-29); Chloride 104 mmol/L (98-107); Creatinine Clr Calc Pharmacy 35.2758; Globulin 2.8 g/dL (1.3-4.6); Glucose 118 mg/dL (65-115); NT Pro B Type Natriuretic Pept 6574 pg/mL (0-450); Osmolality Calculated 296 mOsm/kg (285-295); Potassium 3.5 mmol/L (3.5-5.1); Sodium 141 mmol/L (136-145); Total Bilirubin 0.4 mg/dL (0.15-1.2); Total Protein 6.8 g/dL (6.6-8.7)
[2023-07-07] MEDS: ipratropium-albuterol 3 mL Neb INHALATION (19:54)
[2023-07-07 19:56] VITALS: PULSE 71; RESP 20; O2SAT 98
[2023-07-07] MEDS: cefTRIAXone 2,000 MG in sodium chloride 0.9% (plus) 50 ML 100 MG IV (20:30)
[2023-07-07 20:49] VITALS: PULSE 72; RESP 18; O2SAT 95
== END 2023-07-07 20:50 | disposition home or self-care (01) ==
PROVIDERS: Emergency Provider Internal Medicine; PCP Clinical Nurse Specialist Adult Health
DX: L57.0 Actinic keratosis (principal); L72.0 Epidermal cyst; Z12.83 Encounter for screening for malignant neoplasm of skin; L85.3 Xerosis cutis; D22.5 Melanocytic nevi of trunk; L81.4 Other melanin hyperpigmentation; L57.8 Other skin changes due to chronic exposure to nonionizing radiation; L82.1 Other seborrheic keratosis; Z85.828 Personal history of other malignant neoplasm of skin; J18.9 Pneumonia, unspecified organism; Z79.02 Long term (current) use of antithrombotics/antiplatelets; Z79.82 Long term (current) use of aspirin; Z95.5 Presence of coronary angioplasty implant and graft; I13.0 Hypertensive heart and chronic kidney disease with heart failure and stage 1 through stage 4 chronic kidney disease, or unspecified chronic kidney disease; N18.30 Chronic kidney disease, stage 3 unspecified; I50.9 Heart failure, unspecified; I25.5 Ischemic cardiomyopathy; E78.5 Hyperlipidemia, unspecified; Z85.46 Personal history of malignant neoplasm of prostate; Z86.73 Personal history of transient ischemic attack (TIA), and cerebral infarction without residual deficits; Z95.810 Presence of automatic (implantable) cardiac defibrillator
CPT/HCPCS: 17004; 71045; 80053; 83880; 84484; 85025; 93005; 94640; 96365; 99214; 99285; J0696

== ENCOUNTER 2023-07-14 17:15 | Emergency (ER) | payer MEDICARE, SELFPAY ==
[2023-07-14 17:19] VITALS: BP 174/81; PULSE 71; RESP 16; TEMP 36.4; O2SAT 97
[2023-07-14 19:12] VITALS: BP 186/97
[2023-07-14] MEDS: acetaminophen 500 mg Tablet 1000 MG PO (19:12)
[2023-07-14] MEDS: cloNIDine 0.1 mg Tablet 0.100000000000000006 MG PO (19:12)
--- NOTE | 2023-07-14 19:16 | W.ED.FALL ---
HPI - Fall General: Chief Complaint: Fall Stated Complaint: nose bleed Time Seen by Provider: 07/14/23 18:57 History of Present Illness: Patient presents to the ER after complaining of falling while he was fishing he slipped and landed on his face. Patient has a skin tear and swelling to his nose. Patient did not lose consciousness or blackout. Patient has no other complaints at this time. Patient is on Plavix. Patient says all we need to do is clean the wound up and he put a bandage on it and he will be good to go. 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 Aortic stenosis Ventricular tachycardia Status post AICD placement Stage 3 chronic kidney disease 1.7 baseline creatinine Essential hypertension CHF (congestive heart failure) Biventricular, systolic and diastolic 02/02/2022: LVEF approximately 50% Hyperlipidemia Anemia iron deficient Hypothyroidism Vitamin B12 deficiency Allergic rhinitis Insomnia ASHD (arteriosclerotic heart disease) Ischemic cardiomyopathy EF 40 to 45%?12/01/2021 BPH (benign prostatic hyperplasia) Gynecomastia, male Acute kidney injury superimposed on chronic kidney disease Abdominal aortic aneurysm (AAA) 4.3?4.3 approximately 5.04?5.04 distally Peripheral neuropathy History of nonmelanoma skin cancer Claudication of both lower extremities Pulmonary HTN Bradycardia Heart block atrioventricular Prostate cancer SVT (supraventricular tachycardia) Cognitive dysfunction GERD (gastroesophageal reflux disease) TIA (transient ischemic attack) Surgical History S/P TAVR (transcatheter aortic valve replacement) S/P angioplasty with stent Coronary disease status post 3 stents Status post endovascular aneurysm repair (EVAR) S/P implantation of automatic cardioverter/defibrillator (AICD) [employer] 08/07 Family History Father CAD (coronary artery disease) Mother CAD (coronary artery disease) Congestive heart failure (CHF) Brother Parkinson disease Sister Fibromyalgia Other Cancer Social History Smoking and tobacco/nicotine status: never used tobacco/nicotine Alcohol intake: never Substance/Drug Use: never Lives independently: Yes Marital status: / service: No Current occupational status: retired Current gender identity: Male Gillian/Anglican: Gnosticist Physical Exam Const: COMMON NORMALS: no acute distress, average body habitus, patient oriented x3, no limitations, healthy appearing, alert and well nourished HENMT: COMMON NORMALS: normocephalic, atraumatic, hearing grossly normal bilaterally, external ears normal, moist oral mucous membranes and oropharynx normal; external nose not normal (Avulsion type injury to the skin of the bridge of the nose. Mild swelling) HEAD & SCALP: normocephalic and atraumatic NOSE: external nose not normal (Avulsion type injury to the skin of the bridge of the nose. Mild swelling) EXTERNAL EAR: Yes external ears normal Neck/C-Spine: COMMON NORMALS: full ROM, no lymphadenopathy, supple, no meningeal signs, no JVD and Thyroid normal THYROID: Thyroid normal Chest: COMMONS NORMALS: normal inspection of the chest and normal palpation of entire chest wall Resp: COMMON NORMALS: normal respiratory effort, No retractions, No use of accessory muscles and clear to auscultation bilaterally AUSCULTATION: clear to auscultation bilaterally Cardio: COMMON NORMALS: no JVD, regular rate, regular rhythm, S1 normal heart sound present, S2 normal heart sound present, No gallops present (Cardio), No clicks present (Cardio), No murmurs present (Cardio) and No rub (Cardio) RATE: regular rate RHYTHM: regular rhythm HEART SOUNDS: S1 normal heart sound present and S2 normal heart sound present GI: COMMON NORMALS: Normal to inspection, nondistended, normoactive bowel sounds present, Soft to palpation, non-tender, No hepatosplenomegaly present, no masses and no bruits PALPATION: Yes Soft to palpation and Yes No hepatosplenomegaly present Extremity: NARRATIVE EXTREMITY EXAM: Mild ecchymosis and tenderness to palpation minimally to left ring finger. Ecchymosis noted to left wrist nontender to palpate full range of motion Neuro: COMMON NORMALS: patient oriented x3 SENSORIUM/ORIENTATION: Yes alert MENINGEAL SIGNS: Yes no meningeal signs Course Vital Signs: Vital signs: Vital Signs Temperature 97.5 F L 07/14/23 17:19 Pulse Rate 71 07/14/23 17:19 Respiratory Rate 16 07/14/23 17:19 Blood Pressure 186/97 07/14/23 19:12 Pulse Oximetry 97 07/14/23 17:19 Oxygen Delivery Me thod Room Air 07/14/23 17:19 MDM - Fall Medical Decision Making Nasal wound was cleaned up some triple antibiotic ointment and a Band-Aid was placed on it. Patient not really too inclined to get x-rays or CT scans at this time. Patient knows if he starts hurting worse or has any Differential Diagnosis Unlikely syncope, dislocation of shoulder region, fracture of wrist, compression fracture, concussion with loss of consciousness or concussion without loss of consciousness Medical Records I reviewed the patient's medical records. Lab Data I reviewed the patient's lab results. No radiology studies performed this visit Discharge Plan Discharge Patient Disposition: Home Clinical Impression: Fall, Abrasion of face, Contusion of arm, left Condition: Stable Prescriptions: No Action docusate sodium [Colace] 100 mg capsule 100 mg PO BID PRN (Reason: Constipation) nitroglycerin [Nitrostat] 0.4 mg tablet, sublingual 0.4 mg SUBLINGUAL Q5M PRN (Reason: Chest Pain) Qty: 25 3RF ondansetron 8 mg tablet,disintegrating 8 mg PO 3XD PRN (Reason: Nausea And Vomiting) Qty: 20 0RF aspirin [Adult Aspirin Regimen] 81 mg tablet,delayed release (DR/EC) 81 mg PO DAILY sodium chloride 5 % drops 1 drp ophthalmic (eye) DAILY PRN (Reason: dry eye(s)) Qty: 15 3RF zinc acetate 50 mg (zinc) capsule 50 mg PO DAILY cyanocobalamin (vitamin B-12) [Vitamin B-12] 250 mcg tablet 250 mcg PO DAILY potassium chloride 10 mEq tablet extended release 10 meq PO BID cholecalciferol (vitamin D3) 125 mcg (5,000 unit) capsule 125 mcg PO DAILY tamsulosin 0.4 mg capsule 0.4 mg PO DAILY Qty: 90 3RF Hold Instructions: Doctor's Order Rx Instructions: for urine flow clopidogrel 75 mg tablet 75 mg PO DAILY Qty: 90 3RF atorvastatin 40 mg tablet 40 mg PO DAILY Qty: 90 3RF pantoprazole 40 mg tablet,delayed release (DR/EC) 40 mg PO DAILY Qty: 90 3RF ferrous sulfate 325 mg (65 mg iron) tablet 325 mg PO DAILY Qty: 30 3RF Rx Instructions: with breakfast finasteride 5 mg tablet 5 mg PO DAILY Qty: 90 3RF Lasix 40 mg tablet 40 mg PO BID Qty: 60 11RF amiodarone 200 mg tablet 200 mg PO DAILY Qty: 90 3RF ascorbic acid (vitamin C) [Vitamin C] 1,000 mg Tablet 1,000 mg PO DAILY vitamin A 10,000 unit Capsule 10,000 unit PO DAILY polyethylene glycol 3350 [Miralax] 17 gram powder in packet 17 g PO DAILY PRN (Reason: Constipation) Zithromax Z-Danny 250 mg tablet See Rx Instructions PO .COMPLEX Qty: 6 0RF Rx Instructions: For 250 mg dose pack: take 500 mg today (day 1), then 250 mg for 4 days (days 2-5) guaifenesin 1,200 mg tablet extended release 12hr 1,200 mg PO BID Qty: 14 0RF benzonatate 200 mg capsule 200 mg PO TID Qty: 30 0RF Discharge Orders: Discharge ED (Routine); Ordered 07/14/23 Ordered By: Sandro Cano Referrals: Mainor Gna RESEARCH MANAGEMENT ASSOCIATE [Primary Care Provider] - 1 week Patient Instructions: Fall Prevention for Older Adults (ED), Contusion in Adults (ED), Abrasion (ED) Activity Restrictions/Additional Instructions: Please take Tylenol as needed as directed. Please change dressing on your nose as needed. Keep the area clean and dry. You may want to place a little triple antibiotic ointment on it once a day to keep the scab moist. Otherwise follow-up with your family practice physician within the next 7 days for further evaluation and treatment as needed. Coding Level of Care Code ED Regional Economic Liaison for [facility]
[2023-07-14 19:46] VITALS: BP 164/90
[2023-07-14] MEDS: mupirocin oint 22 gm 1 APPLIC TOPICAL (19:46)
[2023-07-14 19:47] VITALS: BP 164/90; PULSE 71; RESP 16; TEMP 36.4; O2SAT 97
== END 2023-07-14 19:50 | disposition home or self-care (01) ==
PROVIDERS: Emergency Provider Emergency Medicine; PCP Clinical Nurse Specialist Adult Health
DX: S00.31XA Abrasion of nose, initial encounter (principal); S40.022A Contusion of left upper arm, initial encounter; Z79.02 Long term (current) use of antithrombotics/antiplatelets; Z79.82 Long term (current) use of aspirin; Z95.5 Presence of coronary angioplasty implant and graft; Z95.810 Presence of automatic (implantable) cardiac defibrillator; I13.0 Hypertensive heart and chronic kidney disease with heart failure and stage 1 through stage 4 chronic kidney disease, or unspecified chronic kidney disease; N18.30 Chronic kidney disease, stage 3 unspecified; I50.9 Heart failure, unspecified; E78.5 Hyperlipidemia, unspecified; Z85.46 Personal history of malignant neoplasm of prostate; Z86.73 Personal history of transient ischemic attack (TIA), and cerebral infarction without residual deficits; I25.5 Ischemic cardiomyopathy; W01.0XXA Fall on same level from slipping, tripping and stumbling without subsequent striking against object, initial encounter
CPT/HCPCS: 99283

== ENCOUNTER → 2023-08-05 16:17 | Outpatient (BNVA) | payer MEDICARE, SELFPAY | PROVIDERS: PCP Clinical Nurse Specialist Adult Health; Visit Provider Clinical Nurse Specialist Adult Health | DX: N18.30 Chronic kidney disease, stage 3 unspecified (principal); D50.8 Other iron deficiency anemias; I10 Essential (primary) hypertension | CPT/HCPCS: 80053; 81000; 82728; 83540; 85025 ==

== ENCOUNTER 2023-09-04 17:23 | Inpatient (IN) | payer MEDICARE, SELFPAY ==
[2023-09-04] VITALS (8 sets, daily range): BP systolic 139–167; BP diastolic 71–84; PULSE 75–95; RESP 16–20; TEMP 36.8; O2SAT 89–98
--- NOTE | 2023-09-04 18:04 | PC.NURSE ---
oxygen sat decreased to 87%, this nurse applied 2L NC, oxygen sat currently 98%. pt denies oxygen use at home.
--- NOTE | 2023-09-04 18:40 | PC.NURSE ---
Assumed care from Krystle SHARMA.
--- NOTE | 2023-09-04 18:45 | XRR_ITS ---
PROCEDURE INFORMATION: Exam: XR Left Hip Exam date and time: 09/04/2023 7:16 PM Age: 87 years old Clinical indication: Hip pain and pelvic pain; Left hip; Patient HX: Lt hip/pelvic pain post fall TECHNIQUE: Imaging protocol: Radiologic exam of the left hip. Views: 2 or 3 views hip with pelvis when performed. COMPARISON: CT chest abdpel w/*[id number] 10/30/2021 5:06 AM FINDINGS: Bones/joints: No acute fracture. Soft tissues: Unremarkable. Vasculature: Aorto bi-iliac stent noted. XR/XR hip LT 2-3V wo/w pel* [id number] IMPRESSION: No acute findings.
--- NOTE | 2023-09-04 18:45 | XRR_ITS ---
PROCEDURE INFORMATION: Exam: XR Chest Exam date and time: 09/04/2023 7:16 PM Age: 87 years old Clinical indication: Condition or disease; Patient HX: Hypertension; Pre op; Lt hip/pelvic pain post fall TECHNIQUE: Imaging protocol: Radiologic exam of the chest. Views: 1 view. COMPARISON: CR XR chest 1V portable [id number] 07/07/2023 6:28 PM FINDINGS: Tubes, catheters and devices: AICD/pacer device noted in the left chest wall. Lungs: No consolidation. Pleural spaces: No pleural effusion. No pneumothorax. Heart/Mediastinum: Cardiomegaly. Bones/joints: Unremarkable. XR/XR chest 1V portable [id number] IMPRESSION: Cardiomegaly. No acute findings.
--- NOTE | 2023-09-04 18:50 | CTR_ITS ---
PROCEDURE INFORMATION: Exam: CT Head Without Contrast Exam date and time: 09/04/2023 7:07 PM Age: 87 years old Clinical indication: Injury or trauma; Fall; Blunt trauma (contusions or hematomas); Dizziness; Patient HX: Patient became dizzy and fell at home after stepping inside from being outside mowing yard. ; Additional info: Pre-syncope TECHNIQUE: Imaging protocol: Computed tomography of the head without contrast. Radiation optimization: All CT scans at this facility use at least one of these dose optimization techniques: automated exposure control; mA and/or kV adjustment per patient size (includes targeted exams where dose is matched to clinical indication); or iterative reconstruction. COMPARISON: CT head wo/w con [id number] 09/02/2019 8:42 AM RADIATION DOSE METRICS: Total DLP (mGy-cm): 1168.39 FINDINGS: Brain: No hemorrhage. No edema. Moderate diffuse cerebral atrophy and sequela of chronic small vessel ischemic disease. No mass effect. Cerebral ventricles: No ventriculomegaly. Paranasal sinuses: Visualized sinuses are unremarkable. No fluid levels. Mastoid air cells: Visualized mastoid air cells are well aerated. Bones: Unremarkable. No acute fracture. Soft tissues: Unremarkable. CT/CT head wo con* [id number] IMPRESSION: No acute intracranial abnormality.
[2023-09-04 18:54] LABS: Basophils # 0.1 10^3/uL (0.0-0.1); Basophils % 0.9 %; Eosinophils # 0.2 10^3/uL (0.0-0.8); Eosinophils % 3.5 %; Hematocrit 38.4 % (37-53); Lymphocytes # 0.8 10^3/uL (0.8-4.8); Lymphocytes % 14.1 %; Mean Corpuscular HGB Conc 33.1 g/dL (30-55); Mean Corpuscular Hemoglobin 30.8 pg (27-33); Mean Corpuscular Volume 93.2 fl (82-101); Mean Platelet Volume 9.7 fL (7.4-10.4); Monocytes # 0.6 10^3/uL (0.2-0.9); Neutrophils # 4.02 10^3/uL (1.8-7.7); Neutrophils % 70.2 %; Nucleated Red Blood Cells % 0 %; Platelet Count 167 10^3/cmm (157-399); Red Blood Count 4.12 10^6/uL (3.85-5.65); Red Cell Distribution Width 14.6 % (12.1-15.1); White Blood Count 5.73 10^3/uL (3.29-11.43)
[2023-09-04] MEDS: sodium chloride 0.9% 1,000 ML 999 ML IV (18:54)
[2023-09-04 19:14] LABS: Troponin(5th) Baseline 45 ng/L (0-15)
[2023-09-04 19:18] LABS: Alanine Aminotransferase 10 U/L (0-41); Albumin Level 4.2 g/dL (3.5-5.2); Alkaline Phosphatase 175 U/L (40-130); Anion Gap 19.4 (5-19); Aspartate Amino Transferase 14 U/L (0-40); Blood Urea Nitrogen 26 mg/dL (8-23); Calcium 9.1 mg/dL (8.5-10.5); Carbon Dioxide 25 mmol/L (22-29); Chloride 99 mmol/L (98-107); Creatine Phosphokinase 51 U/L (39-308); Creatinine Clr Calc Pharmacy 39.9793; Globulin 3.1 g/dL (1.3-4.6); Glucose 88 mg/dL (65-115); Magnesium 2.4 mg/dL (1.7-2.3); Osmolality Calculated 292 mOsm/kg (285-295); Potassium 4.4 mmol/L (3.5-5.1); Sodium 139 mmol/L (136-145); Total Bilirubin 0.3 mg/dL (0.15-1.2); Total Protein 7.3 g/dL (6.6-8.7)
--- NOTE | 2023-09-04 19:30 | ED_ITS ---
HPI - Fall 2 General: Chief Complaint: Fall Stated Complaint: fall Time Seen by Provider: 09/04/23 17:31 History of Present Illness: 87-year-old gentleman with left hip pain . He notes that he was out mowing, and walked to the house because he ran out of gas. He fell in the doorway, falling on his left hip. He complains of left sided groin and thigh pain. He is not able to bear weight. He has pain with movement. He believes that he blacked out, for a brief second. He remembers events prior to, and was not having chest discomfort. No confusion. No seizure-like activity reported. 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 Aortic stenosis Ventricular tachycardia Status post AICD placement Stage 3 chronic kidney disease 1.7 baseline creatinine Essential hypertension CHF (congestive heart failure) Biventricular, systolic and diastolic 02/02/2022: LVEF approximately 50% Hyperlipidemia Anemia iron deficient Hypothyroidism Vitamin B12 deficiency Allergic rhinitis Insomnia ASHD (arteriosclerotic heart disease) Ischemic cardiomyopathy EF 40 to 45%?12/01/2021 BPH (benign prostatic hyperplasia) Gynecomastia, male Acute kidney injury superimposed on chronic kidney disease Abdominal aortic aneurysm (AAA) 4.3?4.3 approximately 5.04?5.04 distally Peripheral neuropathy History of nonmelanoma skin cancer Claudication of both lower extremities Pulmonary HTN Bradycardia Heart block atrioventricular Prostate cancer SVT (supraventricular tachycardia) Cognitive dysfunction GERD (gastroesophageal reflux disease) TIA (transient ischemic attack) Surgical History S/P TAVR (transcatheter aortic valve replacement) S/P angioplasty with stent Coronary disease status post 3 stents Status post endovascular aneurysm repair (EVAR) S/P implantation of automatic cardioverter/defibrillator (AICD) [facility] [employer] 08/07 Family History Father CAD (coronary artery disease) Mother CAD (coronary artery disease) Congestive heart failure (CHF) Brother Parkinson disease Sister Fibromyalgia Other Cancer Social History Smoking and tobacco/nicotine status: never used tobacco/nicotine Alcohol intake: never Substance/Drug Use: never Lives independently: Yes Marital status: / service: No Current occupational status: retired Current gender identity: Male Gillian/Hinduism: Religious Physical Exam 2 Const: GENERAL APPEARANCE: cooperative and frail appearing (Mildly); not ill appearing HENMT: COMMON NORMALS: normocephalic, atraumatic, hearing grossly normal bilaterally and Normal external nose present HEAD & SCALP: normocephalic and atraumatic FACE & SINUS: normal facial exam and face symmetric NOSE: N ormal external nose present Eye: COMMON NORMALS: Equal, round and reactive pupils present and EOMs intact bilaterally PUPIL: Yes Equal, round and reactive pupils present Neck/C-Spine: GENERAL: Yes trachea midline CERVICAL SPINE: No pain with cervical ROM and No Cervical spine tenderness Chest: CHEST: Yes Symmetrical chest wall rise Resp: COMMON NORMALS: normal respiratory effort, No use of accessory muscles and clear to auscultation bilaterally AUSCULTATION: clear to auscultation bilaterally Cardio: COMMON NORMALS: regular rate and regular rhythm RATE: regular rate RHYTHM: regular rhythm GI: COMMON NORMALS: Normal to inspection, nondistended, normoactive bowel sounds present and non-tender Back/Pelvis: PELVIS: No tenderness over symphysis pubis Extremity: NARRATIVE EXTREMITY EXAM: Exam the left lower extremity reveals tenderness over the anterior proximal thigh. There is no lateral tenderness. There is no significant deformity of the hip. There is pain on logroll testing. Course 2 Vital Signs: Vital signs: Vital Signs Temperature 98.3 F 09/04/23 17:26 Pulse Rate 93 09/04/23 22:42 Respiratory Rate 18 09/04/23 22:00 Blood Pressure 147/76 09/04/23 22:42 Pulse Oximetry 90 09/04/23 22:42 Oxygen Delivery Me thod Nasal Cannula 09/04/23 22:42 Oxygen Flow Rate 5 09/04/23 22:42 MDM - Fall Medical Decision Making 87-year-old gentleman with what sounds like a near syncopal episode, with left hip pain that is significant. He reports not hitting his head to his knowledge. Head CT is negative. Hip x-ray is read as nonacute. Chest x-ray is nonacute. His creatinine is 1.5. Otherwise CBC and BMP are not remarkable. His troponin is 45, which is essentially his baseline or improved from his baseline. [address], of the bony pelvis, is pending. CT of the bony pelvis shows an incomplete hairline fracture of the femoral neck on the left. Spoke with orthopedics (Dr. Matta). Recommendations are medicine admission and consultation for stabilization, likely with cannulated screws. Spoke with hospitalist (Dr. Springer). She agrees to admit. Requests pacer check, and D-dimer given hypoxia with presyncope. Lab Data 09/04/23 17:38 09/04/23 17:38 Radiology Impressions Chest X-Ray 09/04/23 18:45 IMPRESSION: Cardiomegaly. No acute findings. Hip/Pelvis X-Ray 09/04/23 18:45 IMPRESSION: No acute findings. Head CT 09/04/23 18:50 IMPRESSION: No acute intracranial abnormality. Pelvis CT 09/04/23 20:05 IMPRESSION: Incomplete hairline fracture along the left femoral neck. Laboratory Results WBC 5.73 10^3/uL (3.29-11.43) 09/04/23 17:38 RBC 4.12 10^6/uL (3.85-5.65) 09/04/23 17:38 Hgb 12.70 g/dL (11.27-16.99) 09/04/23 17:38 Hct 38.4 % (37-53) 09/04/23 17:38 MCV 93.2 fl (82-101) 09/04/23 17:38 MCH 30.8 pg (27-33) 09/04/23 17:38 MCHC 33.1 g/dL (30-55) 09/04/23 17:38 RDW 14.6 % (12.1-15.1) 09/04/23 17:38 Plt Count 167 10^3/cmm (157-399) 09/04/23 17:38 MPV 9.7 fL (7.4-10.4) 09/04/23 17:38 Neut % (Auto) 70.2 % 09/04/23 17:38 Lymph % (Auto) 14.1 % 09/04/23 17:38 [place] % (Auto) 11.0 % 09/04/23 17:38 Eos % (Auto) 3.5 % 09/04/23 17:38 Baso % (Auto) 0.9 % 09/04/23 17:38 Neut # (Auto) 4.02 10^3/uL (1.8-7.7) 09/04/23 17:38 Lymph # (Auto) 0.8 10^3/uL (0.8-4.8) 09/04/23 17:38 [place] # (Auto) 0.6 10^3/uL (0.2-0.9) 09/04/23 17:38 Eos # (Auto) 0.2 10^3/uL (0.0-0.8) 09/04/23 17:38 Baso # (Auto) 0.1 10^3/uL (0.0-0.1) 09/04/23 17:38 Nucleated RBC % (auto) 0 % 09/04/23 17:38 Nucleated RBCs # 0.0 /100WBC 09/04/23 17:38 D-Dimer 16.77 ug/mLFEU (0-0.59) H 09/04/23 17:38 Specimen Type Arterial 09/04/23 20:43 Sample Site Radial, right 09/04/23 20:43 ABG pH 7.41 (7.35-7.45) 09/04/23 20:43 ABG pCO2 44.5 mmHg (35-45) 09/04/23 20:43 ABG pO2 55.0 mmHg (80.0-100.0) L 09/04/23 20:43 ABG HCO3 27.9 mmol/L (22-26) H 09/04/23 20:43 ABG Base Excess 2.7 mmol/L (-2.0-2.0) H 09/04/23 20:43 Marvin Test Pos 09/04/23 20:43 Hematocrit 36.5 % (42-52) L 09/04/23 20:43 O2 Delivery Device Nc 09/04/23 20:43 O2 Liters/Min 5.0 % 09/04/23 20:43 Community Nurse ID [email or web address] 09/04/23 20:43 Sodium 139 mmol/L (136-145) 09/04/23 17:38 Potassium 4.4 mmol/L (3.5-5.1) 09/04/23 17:38 Chloride 99 mmol/L (98-107) 09/04/23 17:38 Carbon Dioxide 25 mmol/L (22-29) 09/04/23 17:38 Anion Gap 19.4 (5-19) H 09/04/23 17:38 BUN 26 mg/dL (8-23) H 09/04/23 17:38 Creatinine 1.5 mg/dL (0.7-1.2) H 09/04/23 17:38 GFR Calculation Not Reportable 09/04/23 17:38 Glucose 88 mg/dL (65-115) 09/04/23 17:38 Calculated Osmolality 292 mOsm/kg (285-295) 09/04/23 17:38 Calcium 9.1 mg/dL (8.5-10.5) 09/04/23 17:38 Magnesium 2.4 mg/dL (1.7-2.3) H 09/04/23 17:38 Total Bilirubin 0.3 mg/dL (0.15-1.2) 09/04/23 17:38 AST 14 U/L (0-40) 09/04/23 17:38 ALT 10 U/L (0-41) 09/04/23 17:38 Alkaline Phosphatase 175 U/L (40-130) H 09/04/23 17:38 Creatine Kinase 51 U/L (39-308) 09/04/23 17:38 Troponin T Baseline 45 ng/L (0-15) H 09/04/23 17:38 Troponin T 120 Minute 39.46 ng/L (0-15) H 09/04/23 20:46 Delta Troponin T -5.54 ABS# (0-10) L 09/04/23 20:46 Total Protein 7.3 g/dL (6.6-8.7) 09/04/23 17:38 Albumin 4.2 g/dL (3.5-5.2) 09/04/23 17:38 Globulin 3.1 g/dL (1.3-4.6) 09/04/23 17:38 Urine Color Dark yellow (Yellow) 09/04/23 18:59 Urine Appearance Clear (CLEAR) 09/04/23 18:59 Urine pH 7 (5-7) 09/04/23 18:59 Ur Specific [place] 1.005 (1.005-1.030) 09/04/23 18:59 Urine Protein Neg (Negative) 09/04/23 18:59 Urine Glucose (UA) Norm (Normal) 09/04/23 18:59 Urine Ketones 1+ (Negative) H 09/04/23 18:59 Urine Blood 2+ (Negative) H 09/04/23 18:59 Urine Nitrate Negative (Negative) 09/04/23 18:59 Urine Bilirubin Neg (Negative) 09/04/23 18:59 Urine Urobilinogen Neg mg/dL (Negative) 09/04/23 18:59 Ur Leukocyte Esterase Negative (Negative) 09/04/23 18:59 Urine RBC 5-10 /hpf (0-2) H 09/04/23 18:59 Urine WBC 0-4 /hpf (0-5) H 09/04/23 18:59 Ur Squamous Epith Cells 0-4 /hpf (0-5) H 09/04/23 18:59 Calcium Oxalate Crystal 0-4 /hpf H 09/04/23 18:59 Amorphous Sediment Not Reportable 09/04/23 18:59 Urine Bacteria Trace /hpf (NONE) 09/04/23 18:59 Urine Mucus Trace /hpf 09/04/23 18:59 All radiology interpretation(s) finalized by discharge Discharge Plan Discharge Patient Disposition: Admitted As Inpatient Admit Provider: Mishel Springer Clinical Impression: Closed fracture of neck of left femur Condition: Stable Coding Level of Care Code 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
[2023-09-04 19:37] LABS: Add Urine Microscopic? YES; Bacteria Urine TRACE /hpf; Bilirubin Urine Neg (Negative); Blood Urine 2+ (Negative); Calcium Oxalate Crystals Urine 0-4 /hpf; Glucose Urine UA Norm (Normal); Ketones Urine 1+ (Negative); Leukocyte Esterase Urine Negative (Negative); Mucus Urine TRACE /hpf; Nitrate Urine Negative (Negative); Protein Urine Neg (Negative); Specific Gravity, Urine 1.005 (1.005-1.030); Squamous Epithelial Cell Urine 0-4 /hpf (0-5); Urine Appearance Clear (CLEAR); Urine Color Dark Yellow (Yellow); Urobilinogen Urine Neg (Negative); WBC Urine 0-4 /hpf (0-5); pH Urine 7 (5-7)
--- NOTE | 2023-09-04 20:05 | CTR_ITS ---
PROCEDURE INFORMATION: Exam: CT Pelvis Without Contrast; Skeletal Exam date and time: 09/04/2023 8:34 PM Age: 87 years old Clinical indication: Injury or trauma; Fall; Blunt trauma (contusions or hematomas); Prior surgery; Surgery date: 6+ months; Surgery type: Aortic graft; Patient HX: Patient fell at home and C/O left hip pain. Unable to bear weight. History of prostate cancer. ; Additional info: Fall left hip pain TECHNIQUE: Imaging protocol: Computed tomography of the pelvis without contrast. Exam focused on the skeleton. Radiation optimization: All CT scans at this facility use at least one of these dose optimization techniques: automated exposure control; mA and/or kV adjustment per patient size (includes targeted exams where dose is matched to clinical indication); or iterative reconstruction. COMPARISON: CT chest abdpel w/*[id number] 10/30/2021 5:06 AM RADIATION DOSE METRICS: Total DLP (mGy-cm): 636.64 FINDINGS: Vasculature: Aorto bi-iliac stent noted with excluded aortic aneurysm measuring 6.8 cm. Bones/joints: Incomplete hairline fracture along the left femoral neck as best seen on series 12 images 31-32. Soft tissues: Unremarkable. CT/CT bony pelvis [id number] IMPRESSION: Incomplete hairline fracture along the left femoral neck.
[2023-09-04] MEDS: morphine 4 mg/mL SDV 1 mL 2 MG IVP (20:21)
--- NOTE | 2023-09-04 20:46 | ECG_ITS ---
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 Measurements Intervals [place] Rate: 79 P: 56 IA: 248 QRS: -21 QRSD: 140 T: 77 QT: 451 QTc: 520 Interpretive Statements SINUS RHYTHM WITH FIRST DEGREE AV BLOCK INTRAVENTRICULAR CONDUCTION DELAY [130+ ms QRS DURATION] POSSIBLE LATERAL MYOCARDIAL INFARCTION , OF INDETERMINATE AGE [30 ms Q WAVE IN I/aVL/V5/V6] Compared to ECG 07/07/2023 18:03:52 First degree AV block now present Intraventricular conduction delay now present Myocardial infarct finding now present Left bundle-branch block no longer present Electronically Signed On 09-05-2023 21:38:19 CDT by Ceferino Arias M.D. [id number]
[2023-09-04 20:53] LABS: ABG PCO2 44.5 mmHg (35-45); ABG PH Result 7.41 (7.35-7.45); Arterial Blood Gas Hematocrit 36.5 % (42-52); Base Excess ABG 2.7 mmol/L (-2.0-2.0); Blood Gas Allen Test Pos; Blood Gas Sample Site Radial, right; Blood Gas Sample Type Arterial; HCO3 ABG 27.9 mmol/L (22-26); Oxygen Device NC
[2023-09-04 21:07] LABS: Troponin 5 2HR 39.46 ng/L (0-15)
[2023-09-04 21:09] LABS: Troponin 5 2HR Delta -5.54 ABS# (0-10)
--- NOTE | 2023-09-04 21:58 | P.HP_ITS ---
Providers/Chief Complaint 2 Admitting Physician: Mishel Springer MD Primary Care Provider: Mainor Gan Chief Complaint: fall History of Present Illness Roland Diaz (Leroy) is a 87 year old male with a past medical history of hypertension, CHF, CKD, ischemic cardiomyopathy with an EF of 50%, AAA repair, aortic stenosis status post aortic valve replacement, SVT A-fib and history of permanent pacemaker. He presents to the emergency room today after having a syncopal fall at home. Patient states that he was out working in his garden/mowing and then ran out of gas and walked back to the house. As he was walking back he felt dizzy and had a syncopal episode in the doorway resulting in a fall on cemented porch. He has been unable to bear weight since then. No history of head trauma. CT of the pelvis revealed an incomplete hairline fracture of the femoral neck on left site for which she is planned to undergo hip nailing tomorrow morning with orthopedics. He denies any chest pain. Denies feeling short of breath prior to syncope. Patient states that this has been his second episode of syncope in the last 6 weeks. He states that he was out working in a similar situation about 6 weeks ago and had an episode of syncope. He is unable to provide too many details regarding the incident stating that he does not recall much after his passing out. On other occasions he says that he feels lightheaded especially with movement of his neck up and down.but previous episodes did not result in any syncope. review of past notes show that he has been diagnosed with positional vertigo. He has seen ENT for the same. He was referred to physical therapy for Alda-Hallpike testing and Rebecca maneuvers. Last echocardiogram dates back to January 2022 where he was noted to have a normal LV size with EF of 50%. Abnormal septal motion consistent with conduction abnormality. Possibly severe MR. Thickened mitral valve. Bioprosthetic valve in the aortic position was well-seated. There was mild tricuspid regurgitation and PASP of 40. Stress test from January 2022 had shown small to moderate area of reversible defect in the inferior and inferolateral regions suggestive of ischemia in the right coronary distribution. He followed up with his customer service sales consultant in May 2023. Review of Systems 2 General: Reports: 10 or more systems reviewed and unremarkable except in HPI and below Const: Denies: fever(s), chills or body aches Eyes: Denies: change in vision, blurry vision or photophobia ENMT: Reports: hoarseness; Denies: throat pain, enlarged tonsils, odynophagia or nasal congestion Card: Denies: chest pain, palpitations, irregular heart rhythm, edema, swelling of feet/ankles, lightheadedness, pre-syncope, dyspnea on exertion or orthopnea Resp: Denies: dyspnea, productive cough, non-productive cough, wheezing, stridor, pain on inspiration, change in phlegm color, hemoptysis or chest congestion GI: Denies: abdominal pain, nausea, vomiting, hematemesis, coffee ground emesis, dysphagia, heartburn, diarrhea, constipation, GI cramping, change in stool character, hematochezia or melena : Denies: flank pain, dysuria, urinary frequency, urinary urgency, urinary hesitancy or hematuria Musc: Denies: neck pain, back pain, extremity pain, joint swelling, joint warmth or deformity Neuro: Denies: headache(s), numbness in extremities, weakness in extremities, sensory changes, difficulty walking, frequent falls, dizziness, vertigo, behavioral changes, Slurred speech present or seizure-like activity Psych: Denies: anxiety, depression, suicidal ideation or homicidal ideation Endo: Denies: polyuria, polydipsia, tired all the time, cold intolerance or hot flashes Luis Alfredo/Lymph: Denies: easy bruising or easy bleeding Medications/Allergies Home Medications Medication Instructions Recorded Confirmed Last Taken Type docusate sodium 100 mg capsule 100 mg PO BID PRN Constipation 04/05/19 09/05/23 09/04/23 10:00 History (Colace) ascorbic acid (vitamin C) 1,000 mg 1,000 mg PO DAILY 11/06/20 09/05/23 09/04/23 14:00 History tablet (Vitamin C) nitroglycerin 0.4 mg sublingual 0.4 mg sublingual Q5M PRN Chest 05/21/21 09/05/23 09/04/23 18:30 Rx tablet (Nitrostat) Pain #25 tabs vitamin A 3,000 mcg (10,000 unit) 10,000 unit PO DAILY 12/01/21 09/05/23 09/04/23 10:00 History capsule cyanocobalamin (vitamin B-12) 250 250 mcg PO DAILY 04/29/22 09/05/23 09/04/23 14:00 History mcg tablet (Vitamin B-12) zinc acetate 50 mg (zinc) capsule 50 mg PO DAILY 07/28/22 09/05/23 09/04/23 14:00 History aspirin 81 mg tablet,delayed 81 mg PO DAILY 08/06/22 09/05/23 09/03/23 10:00 History release (Adult Aspirin Regimen) cholecalciferol (vitamin D3) 125 125 mcg PO DAILY 11/10/22 09/05/23 09/04/23 10:00 History mcg (5,000 unit) capsule ferrous sulfate 325 mg (65 mg 325 mg PO DAILY #30 tabs 01/08/23 09/05/23 09/04/23 10:00 Rx iron) tablet finasteride 5 mg tablet 5 mg PO DAILY #90 tabs 01/20/23 09/05/23 09/04/23 10:00 Rx furosemide 40 mg tablet (Lasix) 40 mg PO BID #60 tabs 02/06/23 09/05/23 09/04/23 14:00 Rx sodium chloride 5 % eye drops 1 drp ophthalmic (eye) DAILY PRN 03/04/23 09/05/23 Unknown Rx dry eye(s) #15 mL amiodarone 200 mg tablet 200 mg PO DAILY for rhythm #90 tabs 06/09/23 09/05/23 09/04/23 10:00 Rx atorvastatin 40 mg tablet 40 mg PO DAILY #90 tabs 07/20/23 09/05/23 09/04/23 10:00 Rx clopidogrel 75 mg tablet 75 mg PO DAILY #90 tabs 07/20/23 09/05/23 09/04/23 10:00 Rx pantoprazole 40 mg tablet,delayed 40 mg PO DAILY #90 tabs 07/30/23 09/05/23 09/04/23 10:00 Rx release potassium chloride 10 mEq See Rx Instructions .Route 08/11/23 09/05/23 09/04/23 14:00 Rx tablet,extended release .COMPLEX #180 tabs tamsulosin 0.4 mg capsule 0.4 mg PO DAILY #90 caps 08/26/23 09/05/23 09/04/23 10:00 Rx Allergies Allergy/AdvReac Type Severity Reaction Status Date / Time No Known Allergies Allergy Verified 09/02/23 15:09 PFSH Acute 2 PFSH: Medical History Severe mitral regurgitation 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 Aortic stenosis Ventricular tachycardia Status post AICD placement Stage 3 chronic kidney disease 1.7 baseline creatinine Essential hypertension CHF (congestive heart failure) Biventricular, systolic and diastolic 02/02/2022: LVEF approximately 50% Hyperlipidemia Anemia iron deficient Hypothyroidism Vitamin B12 deficiency Allergic rhinitis Insomnia ASHD (arteriosclerotic heart disease) Ischemic cardiomyopathy EF 40 to 45%?12/01/2021 BPH (benign prostatic hyperplasia) Gynecomastia, male Acute kidney injury superimposed on chronic kidney disease Abdominal aortic aneurysm (AAA) 4.3?4.3 approximately 5.04?5.04 distally Peripheral neuropathy History of nonmelanoma skin cancer Claudication of both lower extremities Pulmonary HTN Bradycardia Heart block atrioventricular Prostate cancer SVT (supraventricular tachycardia) Cognitive dysfunction GERD (gastroesophageal reflux disease) TIA (transient ischemic attack) Surgical History S/P TAVR (transcatheter aortic valve replacement) S/P angioplasty with stent Coronary disease status post 3 stents Status post endovascular aneurysm repair (EVAR) S/P implantation of automatic cardioverter/defibrillator (AICD) [facility] [employer] 08/07 Family History Father CAD (coronary artery disease) Mother CAD (coronary artery disease) Congestive heart failure (CHF) Brother Parkinson disease Sister Fibromyalgia Other Cancer Social History Smoking and tobacco/nicotine status: never used tobacco/nicotine Alcohol intake: never Substance/Drug Use: never Lives independently: Yes Marital status: / service: No Current occupational status: retired Current gender identity: Male Gillian/Zoroastrianism: Tenriism Vitals/I&O/Wt Last Vital Signs Temp 98.3 F 09/04/23 17:26 Pulse 75 09/04/23 17:26 Resp 20 H 09/04/23 20:21 BP 139/71 09/04/23 17:26 Pulse Ox 90 09/04/23 20:21 O2 Del Method Nasal Cannula 09/04/23 18:05 O2 Flow Rate 2 09/04/23 18:05 09/04/23 09/04/23 09/04/23 06:59 14:59 22:59 Intake Total 1000 / 1000 Balance 1000 / 1000 Weight last 48 hrs Weight 90.718 kg Physical Exam 2 Narrative: General: No acute distress, AO x3 HEENT: PERRLA, pupils bilaterally equal and reactive, pallors not present Chest: Normal vesicular breath sounds, no added sounds, equal good air entry bilaterally CVS: S1-S2 regular, no murmurs, no tachycardia, no gallops, no rubs Abdomen: Soft, nontender, no organomegaly, bowel sounds present Neuro: No focal deficits, no facial deformity, AO x3, power 5/5 in all limbs Data 09/05/23 04:32 09/05/23 04:32 Other Labs: Radiology Impressions Chest X-Ray 09/04/23 18:45 IMPRESSION: Cardiomegaly. No acute findings. Hip/Pelvis X-Ray 09/04/23 18:45 IMPRESSION: No acute findings. Head CT 09/04/23 18:50 IMPRESSION: No acute intracranial abnormality. Pelvis CT 09/04/23 20:05 IMPRESSION: Incomplete hairline fracture along the left femoral neck. Laboratory Results WBC 13.35 10^3/uL (3.29-11.43) H 09/05/23 04:32 RBC 3.75 10^6/uL (3.85-5.65) L 09/05/23 04:32 Hgb 11.50 g/dL (11.27-16.99) 09/05/23 04:32 Hct 35.1 % (37-53) L 09/05/23 04:32 MCV 93.6 fl (82-101) 09/05/23 04:32 MCH 30.7 pg (27-33) 09/05/23 04:32 MCHC 32.8 g/dL (30-55) 09/05/23 04:32 RDW 14.6 % (12.1-15.1) 09/05/23 04:32 Plt Count 119 10^3/cmm (157-399) L 09/05/23 04:32 MPV 9.1 fL (7.4-10.4) 09/05/23 04:32 Neut % (Auto) 92.7 % 09/05/23 04:32 Lymph % (Auto) 2.1 % 09/05/23 04:32 [place] % (Auto) 3.7 % 09/05/23 04:32 Eos % (Auto) 0.8 % 09/05/23 04:32 Baso % (Auto) 0.3 % 09/05/23 04:32 Neut # (Auto) 12.38 10^3/uL (1.8-7.7) H 09/05/23 04:32 Lymph # (Auto) 0.3 10^3/uL (0.8-4.8) L 09/05/23 04:32 [place] # (Auto) 0.5 10^3/uL (0.2-0.9) 09/05/23 04:32 Eos # (Auto) 0.1 10^3/uL (0.0-0.8) 09/05/23 04:32 Baso # (Auto) 0.0 10^3/uL (0.0-0.1) 09/05/23 04:32 Nucleated RBC % (auto) 0 % 09/05/23 04:32 Nucleated RBCs # 0.0 /100WBC 09/05/23 04:32 D-Dimer 16.77 ug/mLFEU (0-0.59) H 09/04/23 17:38 Specimen Type Arterial 09/04/23 20:43 Sample Site Radial, right 09/04/23 20:43 ABG pH 7.41 (7.35-7.45) 09/04/23 20:43 ABG pCO2 44.5 mmHg (35-45) 09/04/23 20:43 ABG pO2 55.0 mmHg (80.0-100.0) L 09/04/23 20:43 ABG HCO3 27.9 mmol/L (22-26) H 09/04/23 20:43 ABG Base Excess 2.7 mmol/L (-2.0-2.0) H 09/04/23 20:43 Marvin Test Pos 09/04/23 20:43 Hematocrit 36.5 % (42-52) L 09/04/23 20:43 O2 Delivery Device Nc 09/04/23 20:43 O2 Liters/Min 5.0 % 09/04/23 20:43 Marketing Team Lead ID [email or web address] 09/04/23 20:43 Sodium 142 mmol/L (136-145) 09/05/23 04:32 Potassium 4.4 mmol/L (3.5-5.1) 09/05/23 04:32 Chloride 105 mmol/L (98-107) 09/05/23 04:32 Carbon Dioxide 28 mmol/L (22-29) 09/05/23 04:32 Anion Gap 13.4 (5-19) 09/05/23 04:32 BUN 27 mg/dL (8-23) H 09/05/23 04:32 Creatinine 1.5 mg/dL (0.7-1.2) H 09/05/23 04:32 GFR Calculation Not Reportable 09/05/23 04:32 Glucose 139 mg/dL (65-115) H 09/05/23 04:32 Calculated Osmolality 301 mOsm/kg (285-295) H 09/05/23 04:32 Calcium 8.5 mg/dL (8.5-10.5) 09/05/23 04:32 Magnesium 2.4 mg/dL (1.7-2.3) H 09/04/23 17:38 Total Bilirubin 0.5 mg/dL (0.15-1.2) 09/05/23 04:32 AST 13 U/L (0-40) 09/05/23 04:32 ALT 10 U/L (0-41) 09/05/23 04:32 Alkaline Phosphatase 150 U/L (40-130) H 09/05/23 04:32 Creatine Kinase 51 U/L (39-308) 09/04/23 17:38 Troponin T Baseline 45 ng/L (0-15) H 09/04/23 17:38 Troponin T 120 Minute 39.46 ng/L (0-15) H 09/04/23 20:46 Delta Troponin T -5.54 ABS# (0-10) L 09/04/23 20:46 Troponin T Hi Sens 6Hr 57.96 ng/L (0-15) H 09/05/23 04:32 Troponin T Hi Sens 6Hr Delta 12.96 ng/L (0-12) H* 09/05/23 04:32 Total Protein 6.2 g/dL (6.6-8.7) L 09/05/23 04:32 Albumin 3.6 g/dL (3.5-5.2) 09/05/23 04:32 Globulin 2.6 g/dL (1.3-4.6) 09/05/23 04:32 Urine Color Dark yellow (Yellow) 09/04/23 18:59 Urine Appearance Clear (CLEAR) 09/04/23 18:59 Urine pH 7 (5-7) 09/04/23 18:59 Ur Specific [place] 1.005 (1.005-1.030) 09/04/23 18:59 Urine Protein Neg (Negative) 09/04/23 18:59 Urine Glucose (UA) Norm (Normal) 09/04/23 18:59 Urine Ketones 1+ (Negative) H 09/04/23 18:59 Urine Blood 2+ (Negative) H 09/04/23 18:59 Urine Nitrate Negative (Negative) 09/04/23 18:59 Urine Bilirubin Neg (Negative) 09/04/23 18:59 Urine Urobilinogen Neg mg/dL (Negative) 09/04/23 18:59 Ur Leukocyte Esterase Negative (Negative) 09/04/23 18:59 Urine RBC 5-10 /hpf (0-2) H 09/04/23 18:59 Urine WBC 0-4 /hpf (0-5) H 09/04/23 18:59 Ur Squamous Epith Cells 0-4 /hpf (0-5) H 09/04/23 18:59 Calcium Oxalate Crystal 0-4 /hpf H 09/04/23 18:59 Amorphous Sediment Not Reportable 09/04/23 18:59 Urine Bacteria Trace /hpf (NONE) 09/04/23 18:59 Urine Mucus Trace /hpf 09/04/23 18:59 Other data: [address] [place] [address] CT Scan Report Signed Patient: Roland Diaz (Leroy) Unit #: [id number] : 1935 Age/Sex: 87 / M ADM Date: 09/04/23 Loc: ER Room/Bed: Attending Dr: Ordering Provider/Ordering MD: Trung Barkley DO Date of Service: 09/04/23 Procedure(s): CT bony pelvis 79923 Accession Number(s): [id number] Report Number: [id number] PROCEDURE INFORMATION: Exam: CT Pelvis Without Contrast; Skeletal Exam date and time: 09/04/2023 8:34 PM Age: 87 years old Clinical indication: Injury or trauma; Fall; Blunt trauma (contusions or hematomas); Prior surgery; Surgery date: 6+ months; Surgery type: Aortic graft; Patient HX: Patient fell at home and C/O left hip pain. Unable to bear weight. History of prostate cancer. ; Additional info: Fall left hip pain TECHNIQUE: Imaging protocol: Computed tomography of the pelvis without contrast. Exam focused on the skeleton. Radiation optimization: All CT scans at this facility use at least one of these dose optimization techniques: automated exposure control; mA and/or kV adjustment per patient size (includes targeted exams where dose is matched to clinical indication); or iterative reconstruction. COMPARISON: CT chest abdpel w/*[id number] 10/30/2021 5:06 AM RADIATION DOSE METRICS: Total DLP (mGy-cm): 636.64 FINDINGS: Vasculature: Aorto bi-iliac stent noted with excluded aortic aneurysm measuring 6.8 cm. Bones/joints: Incomplete hairline fracture along the left femoral neck as best seen on series 12 images 31-32. Soft tissues: Unremarkable. CT/CT bony pelvis [id number] IMPRESSION: Incomplete hairline fracture along the left femoral neck. [address] [address] [address] Scan Report Signed Patient: Roland Diaz (Leroy) Unit #: [id number] : 1935 Age/Sex: 87 / M ADM Date: 09/04/23 Loc: ER Room/Bed: Attending Dr: Ordering Provider/Ordering MD: Trung Barkley DO Date of Service: 09/04/23 Procedure(s): CT head wo con* [id number] Accession Number(s): [id number] Report Number: [id number] PROCEDURE INFORMATION: Exam: CT Head Without Contrast Exam date and time: 09/04/2023 7:07 PM Age: 87 years old Clinical indication: Injury or trauma; Fall; Blunt trauma (contusions or hematomas); Dizziness; Patient HX: Patient became dizzy and fell at home after stepping inside from being outside mowing yard. ; Additional info: Pre-syncope TECHNIQUE: Imaging protocol: Computed tomography of the head without contrast. Radiation optimization: All CT scans at this facility use at least one of these dose optimization techniques: automated exposure control; mA and/or kV adjustment per patient size (includes targeted exams where dose is matched to clinical indication); or iterative reconstruction. COMPARISON: CT head wo/w con [id number] 09/02/2019 8:42 AM RADIATION DOSE METRICS: Total DLP (mGy-cm): 1168.39 FINDINGS: Brain: No hemorrhage. No edema. Moderate diffuse cerebral atrophy and sequela of chronic small vessel ischemic disease. No mass effect. Cerebral ventricles: No ventriculomegaly. Paranasal sinuses: Visualized sinuses are unremarkable. No fluid levels. Mastoid air cells: Visualized mastoid air cells are well aerated. Bones: Unremarkable. No acute fracture. Soft tissues: Unremarkable. CT/CT head wo con* [id number] IMPRESSION: No acute intracranial abnormality. 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 # Syncope and collapse Patient states he has had 2 episodes in the last 6 weeks. Previously diagnosed with benign positional vertigo after ENT evaluation. However states that though he has been dizzy he has not had loss of consciousness before. Given his cardiac history this would need to be explored further. Check EKG and troponin series. Pacemaker check to assess for underlying arrhythmias that may have contributed. Currently denies any chest pain. Last stress test from January 2022 abnormal, has not had any follow-up angiograms though it appears he had been minimally symptomatic therefore this was deferred. Has other valvular history by way of mitral regurgitation, history of aortic valve replacement. Will obtain echocardiogram, carotid Doppler for syncope evaluation. Monitor on telemetry. Orthostatics to be checked postprocedure when patient can bear weight on his legs. # Left hip fracture that was surgical repair at the [facility] # History of CHF, pulmonary hypertension with : continue home dose of Lasix 40 mg p.o. twice daily # History of A-fib: Continue amiodarone 200 mg daily. Uncertain why patient is not on anticoagulation, however presumably this was related to endovascular leak after AAA repair. # History of CAD: Continue aspirin. Hold Plavix anticipating surgical procedure. Continue atorvastatin Full code DVT prophylaxis: SCDs, anticoagulation to be started postprocedure Attestations 2 Medical Necessity Statement*: Greater than 2 midnight stay is anticipated Coding Level of Care Code Acute Code for Chg Fwd High MDM includes number and complexity of problems actively addressed during encounter, amount and/or complexity of data reviewed/ordered and described risk of complication, morbidity or mortality of management as documented Diagnoses Closed fracture of neck of left femur S72.002A Acute on chronic diastolic congestive heart failure I50.22 Heart failure chronicity: chronic Heart failure type: systolic Ischemic cardiomyopathy I25.5 Nonrheumatic aortic valve stenosis I35.0 Cardiac valve disease etiology: nonrheumatic S/P TAVR (transcatheter aortic valve replacement) Z95.2 Ventricular tachycardia I47.2 Abdominal aortic aneurysm (AAA) without rupture I71.4 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
[2023-09-04 22:04] LABS: D Dimer 16.77 ug/mLFEU (0-0.59)
[2023-09-04] MEDS: ondansetron 2 mg/ML SDV 2 mL 4 MG IVP (22:24)
--- NOTE | 2023-09-04 22:42 | P.CONIM_ITS ---
Providers/Reason For Consult 2 Consulting Physician/Specialty*: Aicha Matta MD Reason for Consult*: Left Hip Fracture Requesting Physician: Dr. Trung Barkley Attending Physician: Mishel Springer MD Primary Care Provider: Mainor Gan History of Present Illness History of Present Illness Roland Diaz ([place]) is a 87 year old male who was in his usual state of health, and he presented to the emergency room following a fall at home. The patient noted he was working in his garden and mowing. When he ran out of gas, he walked back to the house and had a syncopal episode in the doorway resulting in a fall onto a cement porch. The patient subsequently stated it was the second episode of syncope in the past 6 weeks. On other occasions, he notes he is also felt lightheaded. His last echocardiogram was January 2022, but he had an additional echocardiogram on and was felt to be optimized for surgery from a cardiac standpoint. Review of Systems 2 Const: Denies: fever(s) Eyes: Denies: photophobia ENMT: Denies: throat pain Card: Reports: pre-syncope and dyspnea on exertion; Denies: chest pain Resp: Denies: dyspnea GI: Denies: abdominal pain or vomiting Musc: Denies: neck pain or back pain Neuro: Denies: headache(s) Medications/Allergies Home Medications Medication Instructions Recorded Confirmed Last Taken Type docusate sodium 100 mg capsule 100 mg PO BID PRN Constipation 04/05/19 09/05/23 09/04/23 10:00 History (Colace) ascorbic acid (vitamin C) 1,000 mg 1,000 mg PO DAILY 11/06/20 09/05/23 09/04/23 14:00 History tablet (Vitamin C) nitroglycerin 0.4 mg sublingual 0.4 mg sublingual Q5M PRN Chest 05/21/21 09/05/23 09/04/23 18:30 Rx tablet (Nitrostat) Pain #25 tabs vitamin A 3,000 mcg (10,000 unit) 10,000 unit PO DAILY 12/01/21 09/05/23 09/04/23 10:00 History capsule cyanocobalamin (vitamin B-12) 250 250 mcg PO DAILY 04/29/22 09/05/23 09/04/23 14:00 History mcg tablet (Vitamin B-12) zinc acetate 50 mg (zinc) capsule 50 mg PO DAILY 07/28/22 09/05/23 09/04/23 14:00 History aspirin 81 mg tablet,delayed 81 mg PO DAILY 08/06/22 09/05/23 09/03/23 10:00 History release (Adult Aspirin Regimen) cholecalciferol (vitamin D3) 125 125 mcg PO DAILY 11/10/22 09/05/23 09/04/23 10:00 History mcg (5,000 unit) capsule ferrous sulfate 325 mg (65 mg 325 mg PO DAILY #30 tabs 01/08/23 09/05/23 09/04/23 10:00 Rx iron) tablet finasteride 5 mg tablet 5 mg PO DAILY #90 tabs 01/20/23 09/05/23 09/04/23 10:00 Rx furosemide 40 mg tablet (Lasix) 40 mg PO BID #60 tabs 02/06/23 09/05/23 09/04/23 14:00 Rx sodium chloride 5 % eye drops 1 drp ophthalmic (eye) DAILY PRN 03/04/23 09/05/23 Unknown Rx dry eye(s) #15 mL amiodarone 200 mg tablet 200 mg PO DAILY for rhythm #90 tabs 06/09/23 09/05/23 09/04/23 10:00 Rx atorvastatin 40 mg tablet 40 mg PO DAILY #90 tabs 07/20/23 09/05/23 09/04/23 10:00 Rx clopidogrel 75 mg tablet 75 mg PO DAILY #90 tabs 07/20/23 09/05/23 09/04/23 10:00 Rx pantoprazole 40 mg tablet,delayed 40 mg PO DAILY #90 tabs 07/30/23 09/05/23 09/04/23 10:00 Rx release potassium chloride 10 mEq See Rx Instructions .Route 08/11/23 09/05/23 09/04/23 14:00 Rx tablet,extended release .COMPLEX #180 tabs tamsulosin 0.4 mg capsule 0.4 mg PO DAILY #90 caps 08/26/23 09/05/23 09/04/23 10:00 Rx Allergies Allergy/AdvReac Type Severity Reaction Status Date / Time No Known Allergies Allergy Verified 09/02/23 15:09 Current Medications Generic Name Dose Route Start Last Admin Trade Name Rovertoq PRN Reason Stop Dose Admin Ondansetron HCl 4 mg 09/04/23 21:52 09/04/23 22:24 Ondansetron 2 Mg/Ml Sdv 2 Ml IVP 4 mg Q8H PRN Administration vomiting, or N/V if npo PFSH Acute 2 PFSH: Medical History (Updated 09/05/23 @ 13:50 by Aicha Matta MD) Positive cardiac stress test Severe mitral regurgitation 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 Aortic stenosis Ventricular tachycardia Status post AICD placement Stage 3 chronic kidney disease 1.7 baseline creatinine Essential hypertension CHF (congestive heart failure) Biventricular, systolic and diastolic 02/02/2022: LVEF approximately 50% Hyperlipidemia Anemia iron deficient Hypothyroidism Vitamin B12 deficiency Allergic rhinitis Insomnia ASHD (arteriosclerotic heart disease) Ischemic cardiomyopathy BPH (benign prostatic hyperplasia) Gynecomastia, male Acute kidney injury superimposed on chronic kidney disease Abdominal aortic aneurysm (AAA) 4.3?4.3 approximately 5.04?5.04 distally Peripheral neuropathy History of nonmelanoma skin cancer Claudication of both lower extremities Pulmonary HTN Bradycardia Heart block atrioventricular Prostate cancer SVT (supraventricular tachycardia) Cognitive dysfunction GERD (gastroesophageal reflux disease) TIA (transient ischemic attack) Surgical History S/P TAVR (transcatheter aortic valve replacement) S/P angioplasty with stent Coronary disease status post 3 stents Status post endovascular aneurysm repair (EVAR) S/P implantation of automatic cardioverter/defibrillator (AICD) [employer] 08/07 Family History Father CAD (coronary artery disease) Mother CAD (coronary artery disease) Congestive heart failure (CHF) Brother Parkinson disease Sister Fibromyalgia Other Cancer Social History Smoking and tobacco/nicotine status: never used tobacco/nicotine Alcohol intake: never Substance/Drug Use: never Lives independently: Yes Marital status: / service: No Current occupational status: retired Current gender identity: Male Gillian/Hinduism: [employer] Dietary Habits: Current diet type/program: regular Caffeine: Yes Vitals/I&O/Wt Last Vital Signs Temp 98.3 F 09/04/23 17:26 Pulse 93 09/04/23 22:42 Resp 18 09/04/23 22:00 BP 147/76 09/04/23 22:42 Pulse Ox 90 09/04/23 22:42 O2 Del Method Nasal Cannula 09/04/23 22:42 O2 Flow Rate 5 09/04/23 22:42 09/04/23 09/04/23 09/04/23 06:59 14:59 22:59 Intake Total 1000 / 1000 Balance 1000 / 1000 Weight last 48 hrs Weight 200 lb Physical Exam 2 Const: COMMON NORMALS: no acute distress, average body habitus, patient oriented x3 and alert GENERAL APPEARANCE: cooperative and comfortable O RIENTATION/CONSCIOUSNESS: Yes awake HENMT: COMMON NORMALS: normocephalic and atraumatic HEAD & SCALP: n ormocephalic and atraumatic Eye: GENERAL EYE: appearance normal, both eyes and all related structures Chest: COMMONS NORMALS: normal inspection of the chest Resp: COMMON NORMALS: normal respiratory effort EFFORT & INSPECTION: Yes able to speak in complete sentences and Yes symmetric chest movement Extremity: LEFT LOWER EXTREMITY: Yes hip joint Left hip: Yes inspection (No significant swelling.), Yes ROM (Not evaluated secondary to fracture.) and Yes neurovascular exam (Intact distal to the fracture.) Neuro: COMMON NORMALS: patient oriented x3 SENSORIUM/ORIENTATION: Yes alert Psych: COMMON NORMALS: mental status grossly normal APPEARANCE: Yes grossly normal ATTITUDE: Yes calm and Yes engaged ATTENTION/CONCENTRATION: Yes attention grossly intact Skin: COMMON NORMALS: no rashes or lesions noted GENERAL SKIN EXAM: no rashes or lesions noted Data 09/05/23 04:32 09/05/23 04:32 Other Imaging: My impression: I personally reviewed the patient's x-rays along with the CT scan. There is a nondisplaced femoral neck fracture. This is best seen on CT scan. A&P Assessment and plan (1) Closed fracture of neck of left femur: Patient was admitted with diagnosis of a left femoral neck fracture. It is nondisplaced. The patient has been scheduled for surgical intervention. Overnight, his troponins trended up and cardiology was requested to see and evaluate the patient. At this point, they have cleared him for surgery today with moderate risk. Risks and complications were discussed with the patient, consents were signed. Questions were answered. We will proceed with cannulated screws. Qualifiers: Encounter type: initial encounter Qualified Code(s): S72.002A - Fracture of unspecified part of neck of left femur, initial encounter for closed fracture Consult Attestations 2 Medical Necessity Statement: Per hospitalist service Coding Level of Care Code Acute Code for [facility] Fwd Diagnoses Closed fracture of neck of left femur, initial encounter S72.002A Encounter type: initial encounter
--- NOTE | 2023-09-04 23:51 | PC.NURSE ---
Patient was dressed out and placed into a patient gown. Patient transferred to hospital bed. All clothing and belongings placed in patient belonging bags by bed.
[2023-09-05] VITALS (26 sets, daily range): BP systolic 111–153; BP diastolic 47–74; PULSE 66–85; RESP 14–24; TEMP 36.3–37.1; O2SAT 90–98
--- NOTE | 2023-09-05 00:46 | ECG_ITS ---
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 Measurements Intervals [place] Rate: 88 P: 109 AR: 233 QRS: -21 QRSD: 190 T: 112 QT: 449 QTc: 544 Interpretive Statements SINUS RHYTHM WITH FIRST DEGREE AV BLOCK LEFT BUNDLE BRANCH BLOCK [120+ ms QRS DURATION, 80+ ms Q/S IN V1/V2, 85+ ms R IN I/aVL/V5/V6] Compared to ECG 09/04/2023 20:06:46 Left bundle-branch block now present Intraventricular conduction delay no longer present Myocardial infarct finding no longer present Electronically Signed On 09-05-2023 21:37:20 CDT by Ceferino Arias M.D. [email or web address]
[2023-09-05] MEDS: morphine 4 mg/mL SDV 1 mL 2 MG IVP ×4 (00:59→16:30)
--- NOTE | 2023-09-05 02:58 | PC.NURSE ---
Patient report was called to Justine HERRING on [place]. All questions and concerns were addressed at time of report.
[2023-09-05 04:44] LABS: Basophils % 0.3 %; Eosinophils # 0.1 10^3/uL (0.0-0.8); Eosinophils % 0.8 %; Hematocrit 35.1 % (37-53); Lymphocytes # 0.3 10^3/uL (0.8-4.8); Lymphocytes % 2.1 %; Mean Corpuscular HGB Conc 32.8 g/dL (30-55); Mean Corpuscular Hemoglobin 30.7 pg (27-33); Mean Corpuscular Volume 93.6 fl (82-101); Mean Platelet Volume 9.1 fL (7.4-10.4); Monocytes # 0.5 10^3/uL (0.2-0.9); Monocytes % 3.7 %; Neutrophils # 12.38 10^3/uL (1.8-7.7); Neutrophils % 92.7 %; Nucleated Red Blood Cells % 0 %; Platelet Count 119 10^3/cmm (157-399); Red Blood Count 3.75 10^6/uL (3.85-5.65); Red Cell Distribution Width 14.6 % (12.1-15.1); White Blood Count 13.35 10^3/uL (3.29-11.43)
[2023-09-05 05:05] LABS: Troponin 5 6HR 57.96 ng/L (0-15)
[2023-09-05 05:07] LABS: Alanine Aminotransferase 10 U/L (0-41); Albumin Level 3.6 g/dL (3.5-5.2); Alkaline Phosphatase 150 U/L (40-130); Anion Gap 13.4 (5-19); Aspartate Amino Transferase 13 U/L (0-40); Blood Urea Nitrogen 27 mg/dL (8-23); Calcium 8.5 mg/dL (8.5-10.5); Carbon Dioxide 28 mmol/L (22-29); Chloride 105 mmol/L (98-107); Creatinine Clr Calc Pharmacy 39.9793; Globulin 2.6 g/dL (1.3-4.6); Glucose 139 mg/dL (65-115); Osmolality Calculated 301 mOsm/kg (285-295); Potassium 4.4 mmol/L (3.5-5.1); Sodium 142 mmol/L (136-145); Total Bilirubin 0.5 mg/dL (0.15-1.2); Total Protein 6.2 g/dL (6.6-8.7)
[2023-09-05 05:08] LABS: Troponin 5 6HR Delta 12.96 ng/L (0-12)
[2023-09-05] MEDS: ondansetron 2 mg/ML SDV 2 mL 4 MG IVP ×2 (05:52→15:43)
--- NOTE | 2023-09-05 06:21 | USCV_ITS ---
Roland Diaz ([place]) Age: 87 Gender: M : 1935 Exam Date: 09/05/2023 07:50 Ordering Phys: Mishel Springer MD Technologist: Tdedy Martinez [place] [facility] [place]: elevated troponins BP: / HR: 68 Rhythm: Sinus Technical Quality: Adequate MEASUREMENTS (Male / Female) Normal Values 2D ECHO LV Diastolic Diameter PLAX 5.1 cm 4.2 - 5.9 / 3.9 - 5.3 cm IVS Diastolic Thickness 1.3 cm 0.6 - 1.0 / 0.6 - 0.9 cm IVS Systolic Thickness 1.7 cm LVPW Diastolic Thickness 1.6 cm 0.6 - 1.0 / 0.6 - 0.9 cm LVPW Systolic Thickness 2.1 cm LVOT Diameter 2.1 cm LV Ejection Fraction 2D Teich 66.6 % LV Ejection Fraction MOD 2C 58.9 % LV Ejection Fraction 2C AL 61.6 % LA Diameter 5.3 cm RA Systolic Volume 4C AL 51.5 ml RA Systolic Volume 4C MOD 50.5 ml LA Sys Volume AL 92.6 cm cubed LA Sys Volume Index AL 44.8 cm cubed/m squared Aorta at Sinotubular Diameter 2.3 cm IVC Diameter 2.0 cm DOPPLER AV Peak Velocity 218.7 cm/s LVOT Peak Velocity 82.0 cm/s AV Area Cont Eq vti 1.6 cm squared AV Area Cont Eq pk 1.3 cm squared MV Peak Velocity 158.0 cm/s MV Area PHT 5.3 cm squared Mitral E to A Ratio 1.9 TV Peak Velocity 402.3 cm/s TR Peak Velocity 433.0 cm/s TR Peak Gradient 75.0 mmHg TR Mean Velocity 299.0 cm/s TR Mean Gradient 41.9 mmHg TR Velocity Time Integral 141.6 cm PV Peak Velocity 67.0 cm/s RV Ejection Time 0.2 s FINDINGS Left Ventricle Left ventricle is normal size. LV systolic function is normal with EF of 55 to 60%. No regional wall motion abnormalities. Right Ventricle Normal in size and function Right Atrium Normal in size Left Atrium Dilated Mitral Valve Moderate mitral annular calcification. Moderate mitral regurgitation. Aortic Valve Bioprosthetic aortic valve. Mildly elevated mean gradient across aortic valve of 11 mmHg. Tricuspid Valve Mild tricuspid regurgitation. RVSP is 45 to 50mmHg. This is consistent with moderate pulmonary hypertension Pulmonic Valve Not well visualized Pericardium Normal Aorta Normal in size IVC Appears to be normal. CONCLUSIONS LV systolic function is normal with EF of 55-60% Left atrial dilation Moderate mitral regurgitation Mild tricuspid regurgitation Moderate pulmonary hypertension Compared to prior echocardiogram from 2021, no significant changes are seen Ceferino Arias MD (Electronically Signed) Final Date: 05 September 2023 09:53 S
--- NOTE | 2023-09-05 06:51 | USR_ITS ---
PROCEDURE INFORMATION: Exam: US Duplex Bilateral Extracranial Arteries; Complete; Carotid Arteries Exam date and time: 09/05/2023 8:34 AM Age: 87 years old Clinical indication: Syncope and collapse TECHNIQUE: Imaging protocol: Real-time duplex ultrasound scan of the bilateral extracranial arteries combining pina scale, color Doppler and spectral waveform analysis with image documentation. Complete exam. Exam focused on the carotid arteries. COMPARISON: CT HEAD 09/04/2023 7:07 PM FINDINGS: Right common carotid artery: PSV = 64.6 cm/s. Moderate plaque. Mild stenosis. Waveforms are normal. Right internal carotid artery: PSV = 119.6 cm/s. Moderate plaque. Mild stenosis. Waveforms are normal. Right ICA/CCA ratio: 2.2 Right external carotid artery: PSV = 88.0 cm/s. Moderate stenosis at the origin. Right vertebral artery: PSV = 63.9 cm/s. Antegrade flow. Left common carotid artery: PSV = 107.7 cm/s. Mild plaque. Mild stenosis. Waveforms are normal. Left internal carotid artery: PSV = 80.3 cm/s. Moderate plaque. Mild stenosis. Waveforms are normal. Left ICA/CCA ratio: 1.2 Left external carotid artery: PSV = 74.2 cm/s. Moderate stenosis at the origin. Left vertebral artery: PSV = 59.5 cm/s. Antegrade flow. US/CV carotid duplex BI* [id number] IMPRESSION: 1. Bilateral carotid atherosclerotic disease with bilateral mild (<50%) CCA/ICA stenoses. 2. Bilateral antegrade vertebral artery flow. REFERENCES: SRU CRITERIA. The degree of internal carotid artery stenosis is based on criteria defined by the Society of Radiologists in Ultrasound (SRU). Normal is no stenosis. Mild is less than 50% stenosis. Moderate is 50-69% stenosis. Severe is greater than 69% stenosis to near occlusion. Near occlusion is a markedly narrowed lumen. Total occlusion is no detectable patent lumen.
--- NOTE | 2023-09-05 06:51 | USR_ITS ---
PROCEDURE INFORMATION: Exam: US Duplex Lower Extremity Veins, Bilateral Exam date and time: 09/05/2023 8:18 AM Age: 87 years old Clinical indication: Screening exam; Evaluate for dvt TECHNIQUE: Imaging protocol: Real-time duplex ultrasound of the bilateral extremities with 2-D pina scale, color Doppler flow and spectral waveform analysis including responses to compression and other maneuvers (when performed) with image documentation. Complete exam focused on the lower extremity veins. COMPARISON: No relevant prior studies available. FINDINGS: Right deep veins: The common femoral, femoral, proximal profunda femoral and popliteal veins are patent. Normal Doppler waveforms and normal color flow Doppler signal. Normal compressibility and/or augmentation response. Left deep veins: The common femoral, femoral, proximal profunda femoral and popliteal veins are patent. Normal Doppler waveforms and normal color flow Doppler signal. Normal compressibility and/or augmentation response. Superficial veins: The visualized greater saphenous veins appear patent. Soft tissues: No acute soft tissue abnormality. US/CV venous duplex [facility] [id number] IMPRESSION: No evidence of deep vein thrombosis.
[2023-09-05] MEDS: pantoprazole DR 40 mg Tablet PO (08:57)
[2023-09-05] MEDS: finasteride 5 mg Tablet PO (08:57)
[2023-09-05] MEDS: atorvastatin 40 mg Tablet PO (08:57)
[2023-09-05] MEDS: FUROsemide 40 mg Tablet PO (08:57)
[2023-09-05] MEDS: tamsulosin 0.4 mg Capsule 0.400000000000000022 MG PO (08:57)
[2023-09-05] MEDS: amiodarone 200 mg Tablet PO (08:57)
--- NOTE | 2023-09-05 09:56 | P.CONIM_ITS ---
Providers/Reason For Consult 2 Consulting Physician/Specialty*: Ceferino Arias MD/ Cardiology Reason for Consult*: Pre op clearance/ troponin elevation Requesting Physician: Dr Springer Attending Physician: Ifeanyi Yoo MD Primary Care Provider: Mainor Gan History of Present Illness History of Present Illness Roland Diaz ([place]) is a 87 year old male with past medical history of AAA s/p EVAR, aortic stenosis status post TAVR, history of CAD, history of ventricular tachycardia has ICD in place, congestive heart failure who presented to hospital after having a possible syncopal episode and has a hip fracture. Cardiology is consulted for preop clearance. EKG shows left bundle branch block which is chronic. Recent ICD interrogation about 2 weeks ago did not show any shocks or VT. Baseline troponin was 45 and was 57 at 6 hours. Denies chest pain. Says he passed out yesterday. ECHO performed shows normal LV systolic function, moderate mitral regurgitation, and normally functioning bioprosthetic aortic valve. Review of Systems 2 Const: Denies: fever(s) Eyes: Denies: photophobia ENMT: Denies: throat pain Card: Reports: pre-syncope and dyspnea on exertion; Denies: chest pain Resp: Denies: dyspnea GI: Denies: abdominal pain or vomiting Musc: Denies: neck pain or back pain Neuro: Denies: headache(s) Medications/Allergies Home Medications Medication Instructions Recorded Confirmed Last Taken Type docusate sodium 100 mg capsule 100 mg PO BID PRN Constipation 04/05/19 09/05/23 09/04/23 10:00 History (Colace) ascorbic acid (vitamin C) 1,000 mg 1,000 mg PO DAILY 11/06/20 09/05/23 09/04/23 14:00 History tablet (Vitamin C) nitroglycerin 0.4 mg sublingual 0.4 mg sublingual Q5M PRN Chest 05/21/21 09/05/23 09/04/23 18:30 Rx tablet (Nitrostat) Pain #25 tabs vitamin A 3,000 mcg (10,000 unit) 10,000 unit PO DAILY 12/01/21 09/05/23 09/04/23 10:00 History capsule cyanocobalamin (vitamin B-12) 250 250 mcg PO DAILY 04/29/22 09/05/2324 14:00 History mcg tablet (Vitamin B-12) zinc acetate 50 mg (zinc) capsule 50 mg PO DAILY 07/28/22 09/05/23 09/04/23 14:00 History aspirin 81 mg tablet,delayed 81 mg PO DAILY 08/06/22 09/05/23 09/03/23 10:00 History release (Adult Aspirin Regimen) cholecalciferol (vitamin D3) 125 125 mcg PO DAILY 11/10/22 09/05/23 09/04/23 10:00 History mcg (5,000 unit) capsule ferrous sulfate 325 mg (65 mg 325 mg PO DAILY #30 tabs 01/08/23 09/05/23 09/04/23 10:00 Rx iron) tablet finasteride 5 mg tablet 5 mg PO DAILY #90 tabs 01/20/23 09/05/23 09/04/23 10:00 Rx furosemide 40 mg tablet (Lasix) 40 mg PO BID #60 tabs 02/06/23 09/05/23 09/04/23 14:00 Rx sodium chloride 5 % eye drops 1 drp ophthalmic (eye) DAILY PRN 03/04/23 09/05/23 Unknown Rx dry eye(s) #15 mL amiodarone 200 mg tablet 200 mg PO DAILY for rhythm #90 tabs 06/09/23 09/05/23 09/04/23 10:00 Rx atorvastatin 40 mg tablet 40 mg PO DAILY #90 tabs 07/20/23 09/05/23 09/04/23 10:00 Rx clopidogrel 75 mg tablet 75 mg PO DAILY #90 tabs 07/20/23 09/05/23 09/04/23 10:00 Rx pantoprazole 40 mg tablet,delayed 40 mg PO DAILY #90 tabs 07/30/23 09/05/23 09/04/23 10:00 Rx release potassium chloride 10 mEq See Rx Instructions .Route 08/11/23 09/05/23 09/04/23 14:00 Rx tablet,extended release .COMPLEX #180 tabs tamsulosin 0.4 mg capsule 0.4 mg PO DAILY #90 caps 08/26/23 09/05/23 09/04/23 10:00 Rx Allergies Allergy/AdvReac Type Severity Reaction Status Date / Time No Known Allergies Allergy Verified 09/02/23 15:09 Current Medications Generic Name Dose Route Start Last Admin Trade Name Freq PRN Reason Stop Dose Admin Amiodarone HCl 200 mg 09/05/23 09:00 09/05/23 08:57 Amiodarone 200 Mg Tablet PO 200 mg DAILY COLLEEN Administration Aspirin 81 mg 09/05/23 09:00 09/05/23 08:57 Aspirin 81 Mg Ec Tablet PO Not Given DAILY COLLEEN Atorvastatin Calcium 40 mg 09/05/23 09:00 09/05/23 08:57 Atorvastatin 40 Mg Tablet PO 40 mg DAILY COLLEEN Administration Finasteride 5 mg 09/05/23 09:00 09/05/23 08:57 Finasteride 5 Mg Tablet PO 5 mg DAILY COLLEEN Administration Furosemide 40 mg 09/05/23 09:00 09/05/23 08:57 Furosemide 40 Mg Tablet PO 40 mg BID COLLEEN Administration Morphine Sulfate 2 mg 09/04/23 21:52 09/05/23 05:47 Morphine 4 Mg/Ml Sdv 1 Ml IVP 2 mg Q4H PRN Administration SEVERE PAIN Ondansetron HCl 4 mg 09/04/23 21:52 09/05/23 05:52 Ondansetron 2 Mg/Ml Sdv 2 Ml IVP 4 mg Q8H PRN Administration vomiting, or N/V if npo Pantoprazole Sodium 40 mg 09/05/23 09:00 09/05/23 08:[address] 40 Mg Tablet PO 40 mg DAILY COLLEEN Administration Tamsulosin HCl 0.4 mg 09/05/23 09:00 09/05/23 08:57 Tamsulosin 0.4 Mg Capsule PO 0.4 mg DAILY COLLEEN Administration PFSH Acute 2 PFSH: Medical History Severe mitral regurgitation 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 Aortic stenosis Ventricular tachycardia Status post AICD placement Stage 3 chronic kidney disease 1.7 baseline creatinine Essential hypertension CHF (congestive heart failure) Biventricular, systolic and diastolic 02/02/2022: LVEF approximately 50% Hyperlipidemia Anemia iron deficient Hypothyroidism Vitamin B12 deficiency Allergic rhinitis Insomnia ASHD (arteriosclerotic heart disease) Ischemic cardiomyopathy EF 40 to 45%?12/01/2021 BPH (benign prostatic hyperplasia) Gynecomastia, male Acute kidney injury superimposed on chronic kidney disease Abdominal aortic aneurysm (AAA) 4.3?4.3 approximately 5.04?5.04 distally Peripheral neuropathy History of nonmelanoma skin cancer Claudication of both lower extremities Pulmonary HTN Bradycardia Heart block atrioventricular Prostate cancer SVT (supraventricular tachycardia) Cognitive dysfunction GERD (gastroesophageal reflux disease) TIA (transient ischemic attack) Surgical History S/P TAVR (transcatheter aortic valve replacement) S/P angioplasty with stent Coronary disease status post 3 stents Status post endovascular aneurysm repair (EVAR) S/P implantation of automatic cardioverter/defibrillator (AICD) [employer] 08/07 Family History Father CAD (coronary artery disease) Mother CAD (coronary artery disease) Congestive heart failure (CHF) Brother Parkinson disease Sister Fibromyalgia Other Cancer Social History Smoking and tobacco/nicotine status: never used tobacco/nicotine Alcohol intake: never Substance/Drug Use: never Lives independently: Yes Marital status: / service: No Current occupational status: retired Current gender identity: Male Gillian/Sabianism: Mormon Vitals/I&O/Wt Last Vital Signs Temp 97.7 F 09/05/23 08:32 Pulse 68 09/05/23 08:32 Resp 17 09/05/23 08:32 BP 153/72 09/05/23 08:32 Pulse Ox 98 09/05/23 08:32 O2 Del Method Nasal Cannula 09/05/23 08:32 O2 Flow Rate 5 09/04/23 23:50 09/04/23 09/05/23 09/05/23 22:59 06:59 14:59 Intake Total 1000 / 1000 0 / 1000 Output Total 375 / 375 300 / 300 Balance 1000 / 1000 -375 / 625 -300 / -300 Weight last 48 hrs Weight 186 lb 1.6 oz Weight 200 lb Physical Exam 2 Narrative: GENERAL: Patient is alert, awake and oriented x3. [] NECK: No jugular vein distension. [] HEENT: No cyanosis. No icterus. No pallor. [] HEART: Regular S1 and S2. Grade 3/6 systolic murmur LUNGS: Clear to auscultate bilaterally. [] CENTRAL NERVOUS SYSTEM: Grossly nonfocal. [] EXTREMITIES: Lower extremities with no edema bilaterally. 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 Currently he is asymptomatic. Left bundle branch block is chronic. Recent interrogation of ICD did not reveal arrhythmias. Echo shows normal LV systolic function with moderate MR and normally functioning bioprosthetic aortic valve. Troponins are mildly elevated. He did have an abnormal stress test showing mild to moderate ischemia 2 years ago in RCA and LCx territories however both vessels are occluded with blood flow through collaterals. He needs hip surgery secondary to fracture. No major medical optimization needed at this time. Secondary to his complex cardiac and medical history, he will be at least a moderate cardiac risk patient for the procedure. Recommend interrogation of ICD prior to procedure to confirm syncope/presyncope was not related to VT or arrhythmias. If VT is found, will need coronary angiogram prior to procedure. Discussed with patient risks and further management. Thank you for involving us with care of this patient. We will continue to follow . Please call with questions. Consult Attestations 2 Medical Necessity Statement: Care expected to cross 2 midnights. 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
[2023-09-05 12:53] LABS: Cholesterol 155 mg/dL (0-200)
--- NOTE | 2023-09-05 13:00 | XR_ITS ---
WS: [id number] C-ARM RADIOGRAPHS LEFT HIP; 5 IMAGES HISTORY: OR PICS; LT PERC PINNING COMPARISON: 09/04/2023 Intraoperative imaging during percutaneous pinning of the LEFT hip fracture. XR/XR hip LT 2-3V wo/w pel* [id number] IMPRESSION: Intraoperative percutaneous pinning LEFT femoral neck fracture.
[2023-09-05 13:02] LABS: Estmated Average Glucose 103; Hemoglobin A1C 5.2 % (4.0-6.0)
--- NOTE | 2023-09-05 13:16 | PC.NURSE ---
Hearing aides out at bedside, glasses off, no jewlery, new socks on. Down to surgery at this time.
--- NOTE | 2023-09-05 13:22 | P.PN_ITS ---
Subjective 2 Subjective: Admitted overnight. H&P and labs appreciated. Examination patient laying comfortably in bed head of the bed elevated to 10 degrees on 2 L of oxygen supplementation. Denies any nausea, vomiting, headache. States pain is controlled for now. Vitals/I&O/Wt Last Vital Signs Temp 97.7 F 09/05/23 11:28 Pulse 66 09/05/23 11:28 Resp 16 09/05/23 11:28 BP 122/53 09/05/23 11:28 Pulse Ox 95 09/05/23 11:28 O2 Del Method Nasal Cannula 09/05/23 11:28 O2 Flow Rate 5 09/04/23 23:50 09/04/23 09/05/23 09/05/23 22:59 06:59 14:59 Intake Total 1000 / 1000 0 / 1000 Output Total 375 / 375 300 / 300 Balance 1000 / 1000 -375 / 625 -300 / -300 Weight last 48 hrs Weight 84.414 kg Weight 90.718 kg Physical Exam 2 Narrative: General: No acute distress, AO x3 HEENT: PERRLA, pupils bilaterally equal and reactive, pallors not present Chest: Normal vesicular breath sounds, no added sounds, equal good air entry bilaterally CVS: S1-S2 regular, no murmurs, no tachycardia, no gallops, no rubs Abdomen: Soft, nontender, no organomegaly, bowel sounds present Neuro: No focal deficits, no facial deformity, AO x3, power 5/5 in all limbs Urinary Catheter Management: Zhong: Cath Placed During This Visit: yes Reason for Continuing Indwelling Catheter: Required Immobilization for Trauma or Surgery or Anesthesia Urinary Catheter Date of Insertion: 09/05/23 Urinary Catheter Time of Insertion: 10:28 Data 09/05/23 04:32 09/05/23 04:32 A&P Assessment and plan (1) Syncope and collapse: (2) Closed fracture of neck of left femur: (3) CHF (congestive heart failure): Qualifiers: Heart failure chronicity: chronic Heart failure type: systolic Qualified Code(s): I50.22 - Chronic systolic (congestive) heart failure (4) Ischemic cardiomyopathy: (5) Positive cardiac stress test: (6) Aortic stenosis: Qualifiers: Cardiac valve disease etiology: nonrheumatic Qualified Code(s): I35.0 - Nonrheumatic aortic (valve) stenosis (7) S/P TAVR (transcatheter aortic valve replacement): (8) Ventricular tachycardia: (9) Abdominal aortic aneurysm (AAA): (10) 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 # Syncope and collapse: At least 2 episodes in the last 6 weeks. Appreciate ICD interrogation for negative V. tach and V-fib. Patient denies any chest pain. Troponin cycled more so stable. Echocardiogram did not show any regional wall motion abnormality or worsening EF from before. Did show moderate MR and moderate pulmonary hypertension with normal functioning bioprosthetic aortic valve. Check orthostatics once able. Otherwise goal blood pressure less than 140/90 mmHg with mean over 65. Cannot rule out dehydration given patient being on Lasix twice daily at home. EF is normal. # Left hip fracture: Orthopedics has been consulted from the ER. Plan for ORIF. PT, anticoagulation, perioperative antibiotics as per orthopedic team. Patient has been deemed at moderate risk given his extensive cardiac history. Appreciate cardiology recommendations. Monitor hemoglobin postoperatively. # History of CHF, pulmonary hypertension: Normal EF with moderate pulmonary hypertension on echocardiogram done on 09/04. Patient euvolemic. Change Lasix to 40 mg oral daily. # History of A-fib: Continue amiodarone 200 mg daily. Patient not on anticoagulation at home. Telemetry. Currently rate controlled. # History of CAD: No active chest pain. Continue aspirin. Hold Plavix anticipating surgical procedure. Continue atorvastatin. Check A1c, lipid panel. Full code DVT prophylaxis: SCDs, anticoagulation to be started postprocedure N.p.o., cardiac diet postoperatively Protonix for PUD prophylaxis Attestations 2 Medical Necessity Statement*: Requires further hospitalization for management of left hip fracture in an elderly gentleman with extensive past medical history of CAD, positive stress test, atrial fibrillation, pulmonary hypertension, post TAVR and EVAR who presented with syncope Diagnoses Syncope and collapse R55 Closed fracture of neck of left femur S72.002A Acute on chronic diastolic congestive heart failure I50.22 Heart failure chronicity: chronic Heart failure type: systolic Ischemic cardiomyopathy I25.5 Positive cardiac stress test R94.39 Nonrheumatic aortic valve stenosis I35.0 Cardiac valve disease etiology: nonrheumatic S/P TAVR (transcatheter aortic valve replacement) Z95.2 Ventricular tachycardia I47.2 Abdominal aortic aneurysm (AAA) without rupture I71.4 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
[2023-09-05 13:28] LABS: Chol HDL Ratio 2.77 mg/dL (1.0-5.00); HDL Cholesterol 56 mg/dL (60-100); Iron 30 ug/dL (59-158); LDL Cholesterol Calculated 87 mg/dL (50-129); Thyroid Stimulating Hormone 0.48 uIU/mL (0.27-4.20); Total Iron Binding Capacity 200 mcg/dl; Triglycerides 59 mg/dL (0-150); Unsaturated Iron Binding 170 ug/dL (112-347); VLDL Cholestrol Calculation 12 mg/dL (0-30); Vitamin B12 497 pg/mL (232-1245)
[2023-09-05] MEDS: acetaminophen 1,000 MG/100 ML PIGGYBACK 400 MG IV (13:40)
[2023-09-05] MEDS: gabapentin 300 mg Capsule PO (13:47)
[2023-09-05] MEDS: CELEcoxib 200 mg Capsule 400 MG PO (13:47)
[2023-09-05] MEDS: sodium chloride 0.9% 1,000 ML 30 ML IV (13:48)
[2023-09-05] MEDS: ceFAZolin 2,000 MG in sodium chloride 0.9% (plus) 50 ML 100 MG IV (13:59)
--- NOTE | 2023-09-05 14:25 | ANES.PREANE2 ---
Pre-Anesthetic Assessment Height/Weight: Height 1.8 m Weight 84.414 kg Temp Pulse Resp BP Pulse Ox O2 Del Method O2 Flow Rate 98.7 F 69 20 H 143/71 97 Nasal Cannula 3 09/05/23 13:13 09/05/23 13:13 09/05/23 13:13 09/05/23 13:13 09/05/23 13:13 09/05/23 13:13 09/05/23 13:13 Operation Date: 09/05/23 08:20 Proposed Procedures p Hip Screw Closed Reduction Percutaneous Pinning Hip Screw(Left) - Aicha Matta MD Was Beta Fiona taken within 24 hours: N/A Was Clonidine taken within 24 hours: N/A Last intake: Intake Last Liquid Date 09/05/23 Last Liquid Time 23:59 Last Solid Date 09/04/23 Last Solid Time 14:00 Social No alcohol and No tobacco Exam alert, oriented x 3, clear to auscultation bilaterally and regular rate & rhythm (3/6 holosystolic murmur) Airway Submandibular: within normal limits Cervical ROM: Other (limited) Mallampati: Class II Pulmonary Exertional Dyspnea, Othopnea and Shortness of Breath CV/HEM Stable Angina, Arrythmia, Coronary Artery Disease, Congestive Heart Failure, Hypertension and Murmur Aortic stenosis s/p TAVR Neuropsych Neuropathy Hard of Hearing Anesthetic Plan ASA status: 4 Anesthesia: General Other: Avoid Neuroaxial due to anticiagulation Medications/Allergies Home Medications Medication Instructions Recorded Confirmed Last Taken Type docusate sodium 100 mg capsule 100 mg PO BID PRN Constipation 04/05/19 09/05/23 09/04/23 10:00 History (Colace) ascorbic acid (vitamin C) 1,000 mg 1,000 mg PO DAILY 11/06/20 09/05/23 09/04/23 14:00 History tablet (Vitamin C) nitroglycerin 0.4 mg sublingual 0.4 mg sublingual Q5M PRN Chest 05/21/21 09/05/23 09/04/23 18:30 Rx tablet (Nitrostat) Pain #25 tabs vitamin A 3,000 mcg (10,000 unit) 10,000 unit PO DAILY 12/01/21 09/05/23 09/04/23 10:00 History capsule cyanocobalamin (vitamin B-12) 250 250 mcg PO DAILY 04/29/22 09/05/23 09/04/23 14:00 History mcg tablet (Vitamin B-12) zinc acetate 50 mg (zinc) capsule 50 mg PO DAILY 07/28/22 09/05/23 09/04/23 14:00 History aspirin 81 mg tablet,delayed 81 mg PO DAILY 08/06/22 09/05/23 09/03/23 10:00 History release (Adult Aspirin Regimen) cholecalciferol (vitamin D3) 125 125 mcg PO DAILY 11/10/22 09/05/23 09/04/23 10:00 History mcg (5,000 unit) capsule ferrous sulfate 325 mg (65 mg 325 mg PO DAILY #30 tabs 01/08/23 09/05/23 09/04/23 10:00 Rx iron) tablet finasteride 5 mg tablet 5 mg PO DAILY #90 tabs 01/20/23 09/05/23 09/04/23 10:00 Rx furosemide 40 mg tablet (Lasix) 40 mg PO BID #60 tabs 02/06/23 09/05/23 09/04/23 14:00 Rx sodium chloride 5 % eye drops 1 drp ophthalmic (eye) DAILY PRN 03/04/23 09/05/23 Unknown Rx dry eye(s) #15 mL amiodarone 200 mg tablet 200 mg PO DAILY for rhythm #90 tabs 06/09/23 09/05/23 09/04/23 10:00 Rx atorvastatin 40 mg tablet 40 mg PO DAILY #90 tabs 07/20/23 09/05/23 09/04/23 10:00 Rx clopidogrel 75 mg tablet 75 mg PO DAILY #90 tabs 07/20/23 09/05/23 09/04/23 10:00 Rx pantoprazole 40 mg tablet,delayed 40 mg PO DAILY #90 tabs 07/30/23 09/05/23 09/04/23 10:00 Rx release potassium chloride 10 mEq See Rx Instructions .Route 08/11/23 09/05/23 09/04/23 14:00 Rx tablet,extended release .COMPLEX #180 tabs tamsulosin 0.4 mg capsule 0.4 mg PO DAILY #90 caps 08/26/23 09/05/23 09/04/23 10:00 Rx Allergies Allergy/AdvReac Type Severity Reaction Status Date / Time No Known Allergies Allergy Verified 09/02/23 15:09 Current Medications Generic Name Dose Route Start Last Admin Trade Name Freq PRN Reason Stop Dose Admin Amiodarone HCl 200 mg 09/05/23 09:00 09/05/23 08:57 Amiodarone 200 Mg Tablet PO 200 mg DAILY COLLEEN Administration Aspirin 81 mg 09/05/23 09:00 09/05/23 08:57 Aspirin 81 Mg Ec Tablet PO Not Given DAILY COLLEEN Atorvastatin Calcium 40 mg 09/05/23 09:00 09/05/23 08:57 Atorvastatin 40 Mg Tablet PO 40 mg DAILY COLLEEN Administration Finasteride 5 mg 09/05/23 09:00 09/05/23 08:57 Finasteride 5 Mg Tablet PO 5 mg DAILY COLLEEN Administration Morphine Sulfate 2 mg 09/04/23 21:52 09/05/23 10:22 Morphine 4 Mg/Ml Sdv 1 Ml IVP 2 mg Q4H PRN Administration SEVERE PAIN Ondansetron HCl 4 mg 09/04/23 21:52 09/05/23 05:52 Ondansetron 2 Mg/Ml Sdv 2 Ml IVP 4 mg Q8H PRN Administration vomiting, or N/V if npo Pantoprazole Sodium 40 mg 09/05/23 09:00 09/05/23 08:[address] 40 Mg Tablet PO 40 mg DAILY COLLEEN Administration Tamsulosin HCl 0.4 mg 09/05/23 09:00 09/05/23 08:57 Tamsulosin 0.4 Mg Capsule PO 0.4 mg DAILY COLLEEN Administration [facility] Anesthesia Medical History (Updated 09/05/23 @ 13:50 by Aicha Matta MD) Positive cardiac stress test Severe mitral regurgitation 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 Aortic stenosis Ventricular tachycardia Status post AICD placement Stage 3 chronic kidney disease 1.7 baseline creatinine Essential hypertension CHF (congestive heart failure) Biventricular, systolic and diastolic 02/02/2022: LVEF approximately 50% Hyperlipidemia Anemia iron deficient Hypothyroidism Vitamin B12 deficiency Allergic rhinitis Insomnia ASHD (arteriosclerotic heart disease) Ischemic cardiomyopathy BPH (benign prostatic hyperplasia) Gynecomastia, male Acute kidney injury superimposed on chronic kidney disease Abdominal aortic aneurysm (AAA) 4.3?4.3 approximately 5.04?5.04 distally Peripheral neuropathy History of nonmelanoma skin cancer Claudication of both lower extremities Pulmonary HTN Bradycardia Heart block atrioventricular Prostate cancer SVT (supraventricular tachycardia) Cognitive dysfunction GERD (gastroesophageal reflux disease) TIA (transient ischemic attack) Surgical History S/P TAVR (transcatheter aortic valve replacement) S/P angioplasty with stent Coronary disease status post 3 stents Status post endovascular aneurysm repair (EVAR) S/P implantation of automatic cardioverter/defibrillator (AICD) [facility] [employer] 08/07 Family History Father CAD (coronary artery disease) Mother CAD (coronary artery disease) Congestive heart failure (CHF) Brother Parkinson disease Sister Fibromyalgia Other Cancer Social History Smoking and tobacco/nicotine status: never used tobacco/nicotine Alcohol intake: never Substance/Drug Use: never Lives independently: Yes Marital status: / service: No Current occupational status: retired Current gender identity: Male Gillian/Jainism: Restoration Data Anesthesia 09/05/23 04:32 09/05/23 04:32 Short CBC 09/04/23 09/05/23 Range/Units 17:38 04:32 WBC 5.73 13.35 H (3.29-11.43) 10^3/uL Hgb 12.70 11.50 (11.27-16.99) g/dL Hct 38.4 35.1 L (37-53) % MCV 93.2 93.6 (82-101) fl Plt Count 167 119 L (157-399) 10^3/cmm Neut % (Auto) 70.2 92.7 % Neut # (Auto) 4.02 12.38 H (1.8-7.7) 10^3/uL BMP 09/04/23 09/05/23 17:38 04:32 Sodium 139 142 Potassium 4.4 4.4 Chloride 99 105 Carbon Dioxide 25 28 BUN 26 H 27 H Creatinine 1.5 H 1.5 H Glucose 88 139 H Calcium 9.1 8.5 Cardiac Enzymes 09/04/23 09/04/23 09/05/23 Range/Units 17:38 20:46 04:32 Creatine Kinase 51 (39-308) U/L Troponin T Baseline 45 H (0-15) ng/L Troponin T 120 Minute 39.46 H (0-15) ng/L Delta Troponin T -5.54 L (0-10) ABS# Troponin T Hi Sens 6Hr 57.96 H (0-15) ng/L Troponin T Hi Sens 6Hr Delta 12.96 H* (0-12) ng/L Liver Function 09/04/23 09/05/23 Range/Units 17:38 04:32 Total Bilirubin 0.3 0.5 (0.15-1.2) mg/dL AST 14 13 (0-40) U/L ALT 10 10 (0-41) U/L Alkaline Phosphatase 175 H 150 H (40-130) U/L Albumin 4.2 3.6 (3.5-5.2) g/dL Urine 09/04/23 Range/Units 18:59 Urine Color Dark yellow (Yellow) Urine Appearance Clear (CLEAR) Urine pH 7 (5-7) Ur Specific [place] 1.005 (1.005-1.030) Urine Protein Neg (Negative) Urine Glucose (UA) Norm (Normal) Urine Ketones 1+ H (Negative) Urine Nitrate Negative (Negative) Urine Bilirubin Neg (Negative) Ur Leukocyte Esterase Negative (Negative) Urine RBC 5-10 H (0-2) /hpf Urine WBC 0-4 H (0-5) /hpf Coags 09/04/23 17:38 D-Dimer 16.77 H ABG 09/04/23 20:43 Specimen Type Arterial Sample Site Radial, right ABG pH 7.41 ABG pCO2 44.5 ABG pO2 55.0 L ABG HCO3 27.9 H ABG Base Excess 2.7 H O2 Delivery Device Nc O2 Liters/Min 5.0 Cardiac Studies: Echocardiogram 09/05/23 Echocardiogram Limited Views 02/02/22 Echocardiogram Ultrasound 09/17/20 Sestamibi Stress Test (Cardiology) 02/04/22
[2023-09-05] MEDS: lidocaine-epi 1% 20 mL INJ INJECTION (15:00)
--- NOTE | 2023-09-05 15:08 | PC.NURSE ---
1300 - pt noted to have large area of bruising to upper left bicep area noted per this nurse upon arrival to room 268 to retrieve pt
--- NOTE | 2023-09-05 15:25 | PM.OP ---
Operative Report Date of procedure: September 05, 2023 Pre-op diagnosis: Left femoral neck fracture Post-op diagnosis: Left femoral neck fracture Post-op findings: Nondisplaced left femoral neck fracture Procedure done: Open reduction internal fixation of the femoral neck fracture with cannulated screws x 3 Implants: Jadyn cannulated screws x 3, 110 mm x 2 and 120 mm x 1 Specimens removed/disposition: None Pathology: None Surgeon: Aicha Matta MD Owner/Photographer: None Anesthesia: General (Per LMA, ASA 4) Estimated blood loss (mL): 5 IV fluids (mL): 600 Urine output (mL): 75 Complications: None Findings: Nondisplaced left femoral neck fracture Condition: stable Disposition: PACU (Then return to floor for postoperative rehabilitation and pain management) Brief History: Roland Diaz (Leroy) is a 87 year old male who was in his usual state of health, and he presented to the emergency room following a fall at home. The patient noted he was working in his garden and mowing. When he ran out of gas, he walked back to the house and had a syncopal episode in the doorway resulting in a fall onto a cement porch. The patient subsequently stated it was the second episode of syncope in the past 6 weeks. On other occasions, he notes he is also felt lightheaded. His last echocardiogram was January 2022, but he had an additional echocardiogram on 09/04 and was felt to be optimized for surgery from a cardiac standpoint. Preoperatively, the extremity was marked. Questions were answered. Consents were signed. Procedure: Patient is brought to the operating theater. After undergoing adequate general anesthesia per LMA, ASA 4, the patient was transferred to the fracture table, positioned on the table and fluoroscopic guidance obtained throughout the surgical procedure. Prior to the commencement of the surgical procedure, a surgical pause was performed. At the time of the surgical pause, we confirmed the site and side of surgery as well as preoperative surgical markings and appropriate and timely administration of IV antibiotics, Ancef 2 g. Availability of equipment was also confirmed. Fluoroscopy was used to confirm the fracture was appropriately reduced in both AP and lateral planes. Fluoroscopy was utilized to determine appropriate positioning for the incision. Plans were made for an inverted triangle with the 3 cannulated screws. This was evaluated on the patient's skin and incision was made in appropriate position to allow for placement of the Dyan gun. Guidewires were passed from the lateral cortex of the femur into the femoral head in appropriate position. Once these were in appropriate position, the Dyan gun was removed. Positioning was again confirmed in AP and lateral planes. Measurement was then made to assure the appropriate length of screw was utilized. After measurement, each screw was placed and evaluated in AP and lateral planes. Once the 3 screws were placed. Final imaging was accomplished in AP and lateral planes with the fluoroscope scope, and these were saved to permanent imaging. Attention was then directed to closure. The hip was copiously irrigated with normal saline with antibiotics. Following this it was dried and closed. Tensor fascia carmen was closed proximally with 0 Vicryl in an interrupted fashion. Subcutaneous tissues were closed with 2-0 Monocryl, and the skin was closed with a continuous 3-0 Monocryl subcuticular stitch. This was then covered with Dermabond and Steri-Strips. OpSite was then placed. The patient was removed from the fracture table and returned to recovery in satisfactory condition. The patient will be discharged to the floor for postoperative rehabilitation and pain management. There were no specimens obtained. Related Problem List Diagnoses (1) Closed fracture of neck of left femur:
[2023-09-06] VITALS (7 sets, daily range): BP systolic 127–149; BP diastolic 61–75; PULSE 67–76; RESP 14–18; TEMP 36.6–36.7; O2SAT 96–99; BMI 25.9
[2023-09-06 05:54] LABS: Basophils % 0.2 %; Eosinophils # 0.1 10^3/uL (0.0-0.8); Eosinophils % 0.7 %; Lymphocytes # 0.2 10^3/uL (0.8-4.8); Lymphocytes % 1.8 %; Mean Corpuscular HGB Conc 32.2 g/dL (30-55); Mean Corpuscular Hemoglobin 30.7 pg (27-33); Mean Corpuscular Volume 95.5 fl (82-101); Mean Platelet Volume 9.6 fL (7.4-10.4); Monocytes # 0.4 10^3/uL (0.2-0.9); Monocytes % 4.3 %; Neutrophils # 8.35 10^3/uL (1.8-7.7); Neutrophils % 92.7 %; Nucleated Red Blood Cells % 0 %; Platelet Count 112 10^3/cmm (157-399); Red Blood Count 3.35 10^6/uL (3.85-5.65); Red Cell Distribution Width 14.8 % (12.1-15.1); White Blood Count 9.01 10^3/uL (3.29-11.43)
[2023-09-06 06:17] LABS: Magnesium 2.3 mg/dL (1.7-2.3)
[2023-09-06 06:18] LABS: Alanine Aminotransferase 7 U/L (0-41); Albumin Level 3.3 g/dL (3.5-5.2); Alkaline Phosphatase 125 U/L (40-130); Anion Gap 15.3 (5-19); Aspartate Amino Transferase 12 U/L (0-40); Blood Urea Nitrogen 34 mg/dL (8-23); Carbon Dioxide 27 mmol/L (22-29); Chloride 100 mmol/L (98-107); Globulin 2.7 g/dL (1.3-4.6); Glucose 133 mg/dL (65-115); Osmolality Calculated 296 mOsm/kg (285-295); Potassium 4.3 mmol/L (3.5-5.1); Sodium 138 mmol/L (136-145); Total Bilirubin 0.3 mg/dL (0.15-1.2)
[2023-09-06 07:38] LABS: Folate Level > 20.0 ng/mL (4.5-32.2)
[2023-09-06] MEDS: morphine 4 mg/mL SDV 1 mL 2 MG IVP (09:58)
[2023-09-06] MEDS: finasteride 5 mg Tablet PO (09:58)
[2023-09-06] MEDS: aspirin 81 mg EC Tablet PO (09:58)
[2023-09-06] MEDS: FUROsemide 40 mg Tablet PO (09:59)
[2023-09-06] MEDS: atorvastatin 40 mg Tablet PO (09:59)
[2023-09-06] MEDS: tamsulosin 0.4 mg Capsule 0.400000000000000022 MG PO (09:59)
[2023-09-06] MEDS: pantoprazole DR 40 mg Tablet PO (09:59)
[2023-09-06] MEDS: amiodarone 200 mg Tablet PO (09:59)
--- NOTE | 2023-09-06 14:39 | P.PN_ITS ---
Subjective 2 Subjective: No acute events overnight. Patient has remained hemodynamic stable and afebrile. Today morning seen sitting up in bed. Denies any nausea, vomiting, headache. States pain is well-controlled. Vitals/I&O/Wt Last Vital Signs Temp 98.1 F 09/06/23 12:00 Pulse 73 09/06/23 12:00 Resp 18 09/06/23 12:00 BP 136/62 09/06/23 12:00 Pulse Ox 98 09/06/23 12:00 O2 Del Method Nasal Cannula 09/06/23 12:00 O2 Flow Rate 3.5 09/06/23 04:00 09/05/23 09/06/23 09/06/23 22:59 06:59 14:59 Intake Total 870 / 920 720 / 720 Output Total 1155 / 1455 450 / 1905 200 / 200 Balance -285 / -535 -450 / -985 520 / 520 Weight last 48 hrs Weight 84.414 kg Weight 84.414 kg Weight 90.718 kg Physical Exam 2 Narrative: General: No acute distress, AO x3 HEENT: PERRLA, pupils bilaterally equal and reactive, pallors not present Chest: Normal vesicular breath sounds, no added sounds, equal good air entry bilaterally CVS: S1-S2 regular, no murmurs, no tachycardia, no gallops, no rubs Abdomen: Soft, nontender, no organomegaly, bowel sounds present Neuro: No focal deficits, no facial deformity, AO x3, power 5/5 in all limbs Urinary Catheter Management: Zhong: Cath Placed During This Visit: yes, but has since been removed by the nurse Reason for Continuing Indwelling Catheter: Decision to DC Catheter Urinary Catheter Date of Insertion: 09/05/23 Urinary Catheter Time of Insertion: 10:28 Date Urinary Catheter Removed: 09/06/23 Time Urinary Catheter Discontinued: 06:10 Data 09/06/23 04:59 09/06/23 04:59 A&P Assessment and plan (1) Syncope and collapse: (2) Closed fracture of neck of left femur: Qualifiers: Encounter type: initial encounter Qualified Code(s): S72.002A - Fracture of unspecified part of neck of left femur, initial encounter for closed fracture (3) CHF (congestive heart failure): Qualifiers: Heart failure chronicity: chronic Heart failure type: systolic Qualified Code(s): I50.22 - Chronic systolic (congestive) heart failure (4) Ischemic cardiomyopathy: (5) Positive cardiac stress test: (6) Aortic stenosis: Qualifiers: Cardiac valve disease etiology: nonrheumatic Qualified Code(s): I35.0 - Nonrheumatic aortic (valve) stenosis (7) S/P TAVR (transcatheter aortic valve replacement): (8) Ventricular tachycardia: (9) Abdominal aortic aneurysm (AAA): (10) 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 # Syncope and collapse: At least 2 episodes in the last 6 weeks. Appreciate ICD interrogation for negative V. tach and V-fib. Patient denies any chest pain. Troponin cycled more so stable. Echocardiogram did not show any regional wall motion abnormality or worsening EF from before. Did show moderate MR and moderate pulmonary hypertension with normal functioning bioprosthetic aortic valve. Check orthostatics once able. Otherwise goal blood pressure less than 140/90 mmHg with mean over 65. Cannot rule out dehydration given patient being on Lasix twice daily at home. EF is normal. # Left hip fracture: Orthopedics has been consulted from the ER. Plan for ORIF. PT, anticoagulation, perioperative antibiotics as per orthopedic team. Patient has been deemed at moderate risk given his extensive cardiac history. Appreciate cardiology recommendations. Monitor hemoglobin postoperatively. # History of CHF, pulmonary hypertension: Normal EF with moderate pulmonary hypertension on echocardiogram done on 09/04. Patient euvolemic. Change Lasix to 40 mg oral daily. # History of A-fib: Continue amiodarone 200 mg daily. Patient not on anticoagulation at home. Telemetry. Currently rate controlled. # History of CAD: No active chest pain. Continue aspirin. Hold Plavix anticipating surgical procedure. Continue atorvastatin. Check A1c, lipid panel. Plan for the day: Tolerated ORIF well. Physical therapy. Heparin 5000 every 12 hourly for anticoagulation. [place] 5 mg every 8 hourly for pain. Plan to check orthostatics tomorrow with physical therapy. Creatinine up to 1.7. Baseline creatinine seems to be 1.4-2.4. Continue to monitor. Strict input output charting. Lasix cut down to 40 mg oral daily. Watch for fluid overload. Currently patient at baseline oxygen supplementation. Full code DVT prophylaxis: SCDs, heparin 5000 every 12 hourly Cardiac diet Protonix for PUD prophylaxis Attestations 2 Medical Necessity Statement*: Requires further hospitalization for post-ORIF care patient with baseline history of CKD, post TAVR, post EVAR, CABG with positive recent stress test while safe discharge planning discharge. 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
--- NOTE | 2023-09-06 15:10 | ANE.PACU2 ---
Inpatient post-anesthesia follow up: Airway intact: Yes Vital signs: Temperature 98.1 F Pulse Rate 73 Respiratory Rate 18 Blood Pressure 136/62 Pulse Oximetry 98 Oxygen Delivery Me thod Nasal Cannula Oxygen Flow Rate 3.5 Fraction of Inspir ed Oxygen Hydration adequate: Yes Nausea and vomiting: No Pain level: 4 Mental status: Baseline
[2023-09-06] MEDS: heparin 5,000 unit/mL INJ 1 mL 5000 UNIT SUBCUT (15:34)
[2023-09-06] MEDS: HYDROcodone-acetaminophen 5-325 mg Tablet 1 TAB PO (15:34)
--- NOTE | 2023-09-06 17:28 | PC.NURSE ---
Orthostatics on hold d/t awaiting PT eval to get pt up.
--- NOTE | 2023-09-06 17:42 | P.PN_ITS ---
Subjective 2 Subjective: No acute events overnight. Patient has remained hemodynamic stable and afebrile. Today morning seen sitting up in bed. Denies any nausea, vomiting, headache. States pain is well-controlled. Medications: Reviewed: Yes Vitals/I&O/Wt Last Vital Signs Temp 98.1 F 09/06/23 16:00 Pulse 69 09/06/23 16:00 Resp 18 09/06/23 16:00 BP 149/63 09/06/23 16:00 Pulse Ox 97 09/06/23 16:00 O2 Del Method Nasal Cannula 09/06/23 16:00 O2 Flow Rate 3.5 09/06/23 04:00 09/06/23 09/06/23 09/06/23 06:59 14:59 22:59 Intake Total 720 / 720 Output Total 450 / 1905 200 / 200 Balance -450 / -985 520 / 520 Weight last 48 hrs Weight 186 lb 1.6 oz Weight 186 lb 1.6 oz Physical Exam 2 Const: COMMON NORMALS: no acute distress, average body habitus, patient oriented x3 and alert GENERAL APPEARANCE: cooperative and comfortable O RIENTATION/CONSCIOUSNESS: Yes awake HENMT: COMMON NORMALS: normocephalic and atraumatic HEAD & SCALP: n ormocephalic and atraumatic Eye: GENERAL EYE: appearance normal, both eyes and all related structures Chest: COMMONS NORMALS: normal inspection of the chest Resp: COMMON NORMALS: normal respiratory effort EFFORT & INSPECTION: Yes able to speak in complete sentences and Yes symmetric chest movement Extremity: LEFT LOWER EXTREMITY: Yes hip joint (Dressing is dry and intact.) Left hip: Yes inspection (There is no apparent swelling or ecchymosis.), Yes palpation (Nontender to palpation), Yes ROM (Not evaluated) and Yes neurovascular exam (Intact distally with no evidence of DVT) Neuro: COMMON NORMALS: patient oriented x3 SENSORIUM/ORIENTATION: Yes alert Psych: COMMON NORMALS: mental status grossly normal APPEARANCE: Yes grossly normal ATTITUDE: Yes calm and Yes engaged ATTENTION/CONCENTRATION: Yes attention grossly intact Skin: COMMON NORMALS: no rashes or lesions noted GENERAL SKIN EXAM: no rashes or lesions noted Urinary Catheter Management: Zhong: Cath Placed During This Visit: yes, but has since been removed by the nurse Reason for Continuing Indwelling Catheter: Decision to DC Catheter Urinary Catheter Date of Insertion: 09/05/23 Urinary Catheter Time of Insertion: 10:28 Date Urinary Catheter Removed: 09/06/23 Time Urinary Catheter Discontinued: 06:10 Data 09/06/23 04:59 09/06/23 04:59 A&P Assessment and plan (1) Closed fracture of neck of left femur: Patient was admitted with diagnosis of a left femoral neck fracture. He underwent cannulated screw fixation of his left femoral neck fracture. This was accomplished uneventfully. Today is postop day 1, and the patient was not ambulated as physical therapy was not available. There is no evidence of DVT or other complication. Patient will be ambulated tomorrow weightbearing as tolerated with physical therapy. Plans are that he would likely require [place] [facility] as he lives alone, and he has been having syncopal episodes. From my perspective, he is ready for discharge whenever he is felt to be medically appropriate. Further workup of syncope may occur per the medical team. Qualifiers: Encounter type: initial encounter Qualified Code(s): S72.002A - Fracture of unspecified part of neck of left femur, initial encounter for closed fracture Attestations 2 Medical Necessity Statement*: Per hospitalist team. Coding Level of Care Code Acute Code for [facility] Fwd Diagnoses Closed fracture of neck of left femur, initial encounter S72.002A Encounter type: initial encounter
--- NOTE | 2023-09-06 21:32 | P.PN_ITS ---
Subjective 2 Subjective: Patient is doing well. No chest pain Vitals/I&O/Wt Last Vital Signs Temp 97.9 F 09/06/23 19:55 Pulse 76 09/06/23 19:55 Resp 18 09/06/23 19:55 BP 127/68 09/06/23 19:55 Pulse Ox 96 09/06/23 19:55 O2 Del Method Nasal Cannula 09/06/23 16:00 O2 Flow Rate 3.5 09/06/23 20:00 09/06/23 09/06/23 09/06/23 06:59 14:59 22:59 Intake Total 720 / 720 480 / 1200 Output Total 450 / 1905 200 / 200 Balance -450 / -985 520 / 520 480 / 1000 Weight last 48 hrs Weight 186 lb 1.6 oz Weight 186 lb 1.6 oz Physical Exam 2 Narrative: GENERAL: Patient is alert, awake and oriented x3. [] NECK: No jugular vein distension. [] HEENT: No cyanosis. No icterus. No pallor. [] HEART: Regular S1 and S2. Grade 3/6 systolic murmur LUNGS: Clear to auscultate bilaterally. [] CENTRAL NERVOUS SYSTEM: Grossly nonfocal. [] EXTREMITIES: Lower extremities with no edema bilaterally. Urinary Catheter Management: Zhong: Cath Placed During This Visit: yes, but has since been removed by the nurse Reason for Continuing Indwelling Catheter: Decision to DC Catheter Urinary Catheter Date of Insertion: 09/05/23 Urinary Catheter Time of Insertion: 10:28 Date Urinary Catheter Removed: 09/06/23 Time Urinary Catheter Discontinued: 06:10 Data 09/10/23 05:37 09/10/23 05:37 A&P Assessment and plan (1) Anemia: Qualifiers: Anemia type: iron deficiency Iron deficiency anemia type: other iron deficiency Qualified Code(s): D50.8 - Other iron deficiency anemias (2) Ischemic cardiomyopathy: (3) S/P angioplasty with stent: (4) S/P TAVR (transcatheter aortic valve replacement): (5) 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 Continue medical therapy for cardiac conditions. Please call with questions. Attestations 2 Medical Necessity Statement*: Care expected to cross 2 midnights. 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
[2023-09-07] VITALS (7 sets, daily range): BP systolic 108–151; BP diastolic 54–76; PULSE 66–76; RESP 17–18; TEMP 36.3–36.7; O2SAT 95–98
[2023-09-07] MEDS: HYDROcodone-acetaminophen 5-325 mg Tablet 1 TAB PO ×2 (00:21→08:28)
[2023-09-07] MEDS: heparin 5,000 unit/mL INJ 1 mL 5000 UNIT SUBCUT ×2 (03:02→15:45)
[2023-09-07 03:50] LABS: Basophils % 0.5 %; Eosinophils # 0.6 10^3/uL (0.0-0.8); Eosinophils % 8.2 %; Hematocrit 29.6 % (37-53); Lymphocytes # 0.4 10^3/uL (0.8-4.8); Lymphocytes % 4.7 %; Mean Corpuscular HGB Conc 31.4 g/dL (30-55); Mean Corpuscular Hemoglobin 30.1 pg (27-33); Mean Corpuscular Volume 95.8 fl (82-101); Monocytes # 0.6 10^3/uL (0.2-0.9); Neutrophils # 6.19 10^3/uL (1.8-7.7); Neutrophils % 79.3 %; Nucleated Red Blood Cells % 0 %; Platelet Count 108 10^3/cmm (157-399); Red Blood Count 3.09 10^6/uL (3.85-5.65); Red Cell Distribution Width 14.8 % (12.1-15.1); White Blood Count 7.81 10^3/uL (3.29-11.43)
[2023-09-07 04:21] LABS: Alanine Aminotransferase < 5 U/L (0-41); Albumin Level 3.3 g/dL (3.5-5.2); Alkaline Phosphatase 117 U/L (40-130); Aspartate Amino Transferase 20 U/L (0-40); Blood Urea Nitrogen 36 mg/dL (8-23); Calcium 7.9 mg/dL (8.5-10.5); Carbon Dioxide 27 mmol/L (22-29); Chloride 102 mmol/L (98-107); Creatinine Clr Calc Pharmacy 32.2849; Globulin 2.3 g/dL (1.3-4.6); Glucose 106 mg/dL (65-115); Osmolality Calculated 299 mOsm/kg (285-295); Sodium 140 mmol/L (136-145); Total Bilirubin 0.2 mg/dL (0.15-1.2); Total Protein 5.6 g/dL (6.6-8.7)
[2023-09-07 04:32] LABS: Magnesium 2.3 mg/dL (1.7-2.3)
[2023-09-07] MEDS: FUROsemide 40 mg Tablet PO (08:28)
[2023-09-07] MEDS: atorvastatin 40 mg Tablet PO (08:28)
[2023-09-07] MEDS: amiodarone 200 mg Tablet PO (08:28)
[2023-09-07] MEDS: pantoprazole DR 40 mg Tablet PO (08:28)
[2023-09-07] MEDS: tamsulosin 0.4 mg Capsule 0.400000000000000022 MG PO (08:28)
[2023-09-07] MEDS: aspirin 81 mg EC Tablet PO (08:28)
[2023-09-07] MEDS: finasteride 5 mg Tablet PO (08:28)
--- NOTE | 2023-09-07 09:11 | PC.CHAP ---
Pastoral Care Encounter/Spiritual Assessment Type of Contact [] Declined composition floor setter visit [] Patient/Family/Request visit [] Outpatient visit [] Follow-up visit [] Physician referral [] Code/Alert [x] Routine visit [] Staff referral [] Actively dying [] Patient sleeping [] Family support [] [] Out of room [] Palliative care [] [x] Receiving care in room [] Pre-surgical visit [] Trauma [] Long length of stay [] ICU visit [] Other: Relational/Emotional Strength [] Patient feels connected with others/family/visitors/staff [] Distress [] Loneliness/isolation [] Abandonment Spirituality of Patient [] Person of Gillian [] Attends Islam of their Gillian [] Believes in Prayer [] Reads Bible or Episcopal materials [] There are Spiritual issues to be addressed Glaze Carrier Interventions [x] Prayer [] Active listening [] Non-anxious presence [] Spiritual/emotional support [] Crisis/trauma care [] Spiritual counseling [] Bereavement support [] Provided bereavement packet [] Provided Bible/devotional materials [] Provided toy/stuffed animal, coloring book to patient or family member [] Provided Communion [] Anointing/[place] [] Salvation [] Completed spiritual assessment [] Other: Impact on Illness or Injury [] Angry [] Fearful [] Anxious [] Often cries [] Exhaustion [] Unable to work [] Unable to attend caodaism [] Unable to walk/stand [] Unable to read [] Unable to drive [] Unable to eat/drink [] Unable to sleep [] Unable to be with family [] Patient intubated [] Other: Summary Time spent with patient
--- NOTE | 2023-09-07 12:12 | PC.SOCIAL ---
IMM Update pg 2 of IMM updated and reviewed w/ patient. Copy provided and copy dated, initialed and placed in chart.
--- NOTE | 2023-09-07 13:30 | P.PN_ITS ---
Subjective 2 Subjective: Patient is seen up in a chair today. He has been working with physical therapy. Medications: Reviewed: Yes Vitals/I&O/Wt Last Vital Signs Temp 97.8 F 09/07/23 08:00 Pulse 67 09/07/23 08:00 Resp 18 09/07/23 08:00 BP 146/65 09/07/23 08:00 Pulse Ox 97 09/07/23 08:00 O2 Del Method Nasal Cannula 09/07/23 08:00 O2 Flow Rate 3.5 09/06/23 20:00 09/06/23 09/07/23 09/07/23 22:59 06:59 14:59 Intake Total 960 / 1680 360 / 2040 360 / 360 Output Total 325 / 525 700 / 1225 350 / 350 Balance 635 / 1155 -340 / 815 Weight last 48 hrs Weight 196 lb 14.4 oz Weight 186 lb 1.6 oz Physical Exam 2 Const: COMMON NORMALS: no acute distress, average body habitus, patient oriented x3 and alert GENERAL APPEARANCE: cooperative and comfortable O RIENTATION/CONSCIOUSNESS: Yes awake HENMT: COMMON NORMALS: normocephalic and atraumatic HEAD & SCALP: n ormocephalic and atraumatic Eye: GENERAL EYE: appearance normal, both eyes and all related structures Chest: COMMONS NORMALS: normal inspection of the chest Resp: COMMON NORMALS: normal respiratory effort EFFORT & INSPECTION: Yes able to speak in complete sentences and Yes symmetric chest movement Extremity: LEFT LOWER EXTREMITY: Yes hip joint (Dressing is dry and intact.) Left hip: Yes inspection (Minimal ecchymosis.), Yes ROM (Not evaluated.) and Yes neurovascular exam (Intact distally with no evidence of DVT) Neuro: COMMON NORMALS: patient oriented x3 SENSORIUM/ORIENTATION: Yes alert Psych: COMMON NORMALS: mental status grossly normal APPEARANCE: Yes grossly normal ATTITUDE: Yes calm and Yes engaged ATTENTION/CONCENTRATION: Yes attention grossly intact Skin: COMMON NORMALS: no rashes or lesions noted GENERAL SKIN EXAM: no rashes or lesions noted Urinary Catheter Management: Zhong: Cath Placed During This Visit: yes, but has since been removed by the nurse Reason for Continuing Indwelling Catheter: Decision to DC Catheter Urinary Catheter Date of Insertion: 09/05/23 Urinary Catheter Time of Insertion: 10:28 Date Urinary Catheter Removed: 09/06/23 Time Urinary Catheter Discontinued: 06:10 Data 09/07/23 02:32 09/07/23 02:32 A&P Assessment and plan (1) Closed fracture of neck of left femur: Patient was admitted with diagnosis of a left femoral neck fracture. He underwent cannulated screw fixation of his left femoral neck fracture. This was accomplished uneventfully. Today is postop day 2. And this is the first day the patient has been ambulated with physical therapy. There is no evidence of complication or DVT. He is awaiting placement to assisted. Care will be determined by the medical service. Qualifiers: Encounter type: initial encounter Qualified Code(s): S72.002A - Fracture of unspecified part of neck of left femur, initial encounter for closed fracture Attestations 2 Medical Necessity Statement*: Per medical service Coding Level of Care Code Acute Code for [facility] Fwd Diagnoses Closed fracture of neck of left femur, initial encounter S72.002A Encounter type: initial encounter
--- NOTE | 2023-09-07 14:01 | P.PN_ITS ---
Subjective 2 Subjective: seen this am NAD awaiting insurance auth to go to SNF Vitals/I&O/Wt Last Vital Signs Temp 98.0 F 09/07/23 12:00 Pulse 67 09/07/23 12:00 Resp 18 09/07/23 12:00 BP 108/54 09/07/23 12:00 Pulse Ox 98 09/07/23 12:00 O2 Del Method Nasal Cannula 09/07/23 12:00 O2 Flow Rate 3.5 09/06/23 20:00 09/06/23 09/07/23 09/07/23 22:59 06:59 14:59 Intake Total 960 / 1680 360 / 2040 840 / 840 Output Total 325 / 525 700 / 1225 550 / 550 Balance 635 / 1155 -340 / 815 290 / 290 Weight last 48 hrs Weight 89.312 kg Weight 84.414 kg Physical Exam 2 Narrative: General: No acute distress, AO x3 HEENT: PERRLA, pupils bilaterally equal and reactive, pallors not present Chest: Normal vesicular breath sounds, no added sounds, equal good air entry bilaterally CVS: S1-S2 regular, no murmurs, no tachycardia, no gallops, no rubs Abdomen: Soft, nontender, no organomegaly, bowel sounds present Neuro: No focal deficits, no facial deformity, AO x3 Urinary Catheter Management: Zhong: Cath Placed During This Visit: yes, but has since been removed by the nurse Reason for Continuing Indwelling Catheter: Decision to DC Catheter Urinary Catheter Date of Insertion: 09/05/23 Urinary Catheter Time of Insertion: 10:28 Date Urinary Catheter Removed: 09/06/23 Time Urinary Catheter Discontinued: 06:10 Data 09/07/23 02:32 09/07/23 02:32 A&P Assessment and plan (1) Syncope and collapse: (2) Closed fracture of neck of left femur: Qualifiers: Encounter type: initial encounter Qualified Code(s): S72.002A - Fracture of unspecified part of neck of left femur, initial encounter for closed fracture (3) CHF (congestive heart failure): Qualifiers: Heart failure chronicity: chronic Heart failure type: systolic Qualified Code(s): I50.22 - Chronic systolic (congestive) heart failure (4) Ischemic cardiomyopathy: (5) Positive cardiac stress test: (6) Aortic stenosis: Qualifiers: Cardiac valve disease etiology: nonrheumatic Qualified Code(s): I35.0 - Nonrheumatic aortic (valve) stenosis (7) S/P TAVR (transcatheter aortic valve replacement): (8) Ventricular tachycardia: (9) Abdominal aortic aneurysm (AAA): (10) 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 # Syncope and collapse: At least 2 episodes in the last 6 weeks. Appreciate ICD interrogation for negative V. tach and V-fib. Patient denies any chest pain. Troponin cycled more so stable. Echocardiogram did not show any regional wall motion abnormality or worsening EF from before. Did show moderate MR and moderate pulmonary hypertension with normal functioning bioprosthetic aortic valve. Check orthostatics once able. Otherwise goal blood pressure less than 140/90 mmHg with mean over 65. Cannot rule out dehydration given patient being on Lasix twice daily at home. EF is normal. # Left hip fracture: Orthopedics has been consulted from the ER. Plan for ORIF. PT, anticoagulation, perioperative antibiotics as per orthopedic team. Patient has been deemed at moderate risk given his extensive cardiac history. Appreciate cardiology recommendations. Monitor hemoglobin postoperatively. # History of CHF, pulmonary hypertension: Normal EF with moderate pulmonary hypertension on echocardiogram done on 09/04. Patient euvolemic. Change Lasix to 40 mg oral daily. # History of A-fib: Continue amiodarone 200 mg daily. Patient not on anticoagulation at home. Telemetry. Currently rate controlled. # History of CAD: No active chest pain. Continue aspirin. Hold Plavix anticipating surgical procedure. Continue atorvastatin. Check A1c, lipid panel. Plan for the day: 09/06 Tolerated ORIF well. Physical therapy. Heparin 5000 every 12 hourly for anticoagulation. Lithia 5 mg every 8 hourly for pain. Plan to check orthostatics today with physical therapy. Creatinine up to 1.8. Baseline creatinine seems to be 1.4-2.4. Continue to monitor. Strict input output charting. Lasix cut down to 40 mg oral daily. Watch for fluid overload. Currently patient at baseline oxygen supplementation. - Awaiting insurance authorization Full code DVT prophylaxis: SCDs, heparin 5000 every 12 hourly Cardiac diet Protonix for PUD prophylaxis Attestations 2 Medical Necessity Statement*: Requires further hospitalization for post-ORIF care patient with baseline history of CKD, post TAVR, post EVAR, CABG with positive recent stress test while safe discharge planning discharge. 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
[2023-09-07] MEDS: TRAMadol 50 mg Tablet PO (15:45)
[2023-09-08] VITALS (10 sets, daily range): BP systolic 116–169; BP diastolic 58–91; PULSE 68–100; RESP 17–22; TEMP 36.3–37; O2SAT 90–98
[2023-09-08] MEDS: heparin 5,000 unit/mL INJ 1 mL 5000 UNIT SUBCUT ×2 (01:48→14:30)
[2023-09-08] MEDS: HYDROcodone-acetaminophen 5-325 mg Tablet 1 TAB PO ×3 (02:46→20:17)
[2023-09-08 06:37] LABS: Magnesium 2.2 mg/dL (1.7-2.3)
[2023-09-08] MEDS: finasteride 5 mg Tablet PO (07:55)
[2023-09-08] MEDS: tamsulosin 0.4 mg Capsule 0.400000000000000022 MG PO (07:55)
[2023-09-08] MEDS: atorvastatin 40 mg Tablet PO (07:55)
[2023-09-08] MEDS: pantoprazole DR 40 mg Tablet PO (07:56)
[2023-09-08] MEDS: amiodarone 200 mg Tablet PO (07:56)
[2023-09-08] MEDS: FUROsemide 40 mg Tablet PO (07:56)
[2023-09-08] MEDS: aspirin 81 mg EC Tablet PO (07:56)
[2023-09-08] MEDS: TRAMadol 50 mg Tablet PO (10:55)
[2023-09-08] MEDS: sennosides-docusate Tablet 1 TAB PO ×2 (12:08→17:48)
--- NOTE | 2023-09-08 14:10 | P.PN_ITS ---
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 wanted me to setup wifi on his laptop so he can post a poem [id number], doing well on 2L NC, apparently not on any at home awaiting insurance auth Vitals/I&O/Wt Last Vital Signs Temp 98.4 F 09/08/23 11:42 Pulse 68 09/08/23 11:42 Resp 18 09/08/23 11:42 BP 116/58 09/08/23 11:42 Pulse Ox 90 09/08/23 11:42 O2 Del Method Room Air 09/08/23 11:42 O2 Flow Rate 3.5 09/06/23 20:00 09/07/23 09/08/23 09/08/23 22:59 06:59 14:59 Intake Total 480 / 1320 0 / 1320 960 / 960 Output Total 750 / 1300 650 / 1950 100 / 100 Balance -270 / 20 -650 / -630 860 / 860 Weight last 48 hrs Weight 89.494 kg Weight 89.312 kg Physical Exam 2 Narrative: General: No acute distress, AO x3 HEENT: PERRLA, pupils bilaterally equal and reactive, pallors not present Chest: Normal vesicular breath sounds, no added sounds, equal good air entry bilaterally CVS: S1-S2 regular, no murmurs, no tachycardia, no gallops, no rubs Abdomen: Soft, nontender, no organomegaly, bowel sounds present Neuro: No focal deficits, no facial deformity, AO x3 Urinary Catheter Management: Zhong: Cath Placed During This Visit: yes, but has since been removed by the nurse Reason for Continuing Indwelling Catheter: Decision to DC Catheter Urinary Catheter Date of Insertion: 09/05/23 Urinary Catheter Time of Insertion: 10:28 Date Urinary Catheter Removed: 09/06/23 Time Urinary Catheter Discontinued: 06:10 Data 09/07/23 02:32 09/07/23 02:32 A&P Assessment and plan (1) Syncope and collapse: (2) Closed fracture of neck of left femur: Qualifiers: Encounter type: initial encounter Qualified Code(s): S72.002A - Fracture of unspecified part of neck of left femur, initial encounter for closed fracture (3) CHF (congestive heart failure): Qualifiers: Heart failure chronicity: chronic Heart failure type: systolic Qualified Code(s): I50.22 - Chronic systolic (congestive) heart failure (4) Ischemic cardiomyopathy: (5) Positive cardiac stress test: (6) Aortic stenosis: Qualifiers: Cardiac valve disease etiology: nonrheumatic Qualified Code(s): I35.0 - Nonrheumatic aortic (valve) stenosis (7) S/P TAVR (transcatheter aortic valve replacement): (8) Ventricular tachycardia: (9) Abdominal aortic aneurysm (AAA): (10) 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 # Syncope and collapse: At least 2 episodes in the last 6 weeks. Appreciate ICD interrogation for negative V. tach and V-fib. Patient denies any chest pain. Troponin cycled more so stable. Echocardiogram did not show any regional wall motion abnormality or worsening EF from before. Did show moderate MR and moderate pulmonary hypertension with normal functioning bioprosthetic aortic valve. Check orthostatics once able. Otherwise goal blood pressure less than 140/90 mmHg with mean over 65. Cannot rule out dehydration given patient being on Lasix twice daily at home. EF is normal. # Left hip fracture: Orthopedics has been consulted from the ER. Plan for ORIF. PT, anticoagulation, perioperative antibiotics as per orthopedic team. Patient has been deemed at moderate risk given his extensive cardiac history. Appreciate cardiology recommendations. Monitor hemoglobin postoperatively. # History of CHF, pulmonary hypertension: Normal EF with moderate pulmonary hypertension on echocardiogram done on 09/04. Patient euvolemic. Change Lasix to 40 mg oral daily. # History of A-fib: Continue amiodarone 200 mg daily. Patient not on anticoagulation at home. Telemetry. Currently rate controlled. # History of CAD: No active chest pain. Continue aspirin. Hold Plavix anticipating surgical procedure. Continue atorvastatin. Check A1c, lipid panel. Plan for the day: 09/07 Tolerated ORIF well. Physical therapy. Heparin 5000 every 12 hourly for anticoagulation. Gulliver 5 mg every 8 hourly for pain. Plan to check orthostatics today with physical therapy. Creatinine up to 1.8. Baseline creatinine seems to be 1.4-2.4. Continue to monitor. Strict input output charting. Pt not on o2 at home order lasix 40 bid home dose - home o2 eval ptd - check bmp in am - check bnp - check chest xray today - Awaiting insurance authorization Full code DVT prophylaxis: SCDs, heparin 5000 every 12 hourly Cardiac diet Protonix for PUD prophylaxis Attestations 2 Medical Necessity Statement*: Requires further hospitalization for post-ORIF care patient with baseline history of CKD, post TAVR, post EVAR, CABG with positive recent stress test while safe discharge planning discharge. 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
--- NOTE | 2023-09-08 14:18 | XRR_ITS ---
PROCEDURE INFORMATION: Exam: XR Chest Exam date and time: 09/08/2023 2:27 PM Age: 87 years old Clinical indication: Condition or disease; Lung condition and disease; Pulmonary edema; Status not specified; Prior surgery; Surgery date: 6+ months; Surgery type: Pacer; Patient HX: HX of prostate cancer; Additional info: Pulm edema TECHNIQUE: Imaging protocol: Radiologic exam of the chest. Views: 1 view. COMPARISON: CR (CHEST, ) 09/04/2023 7:16 PM FINDINGS: Tubes, catheters and devices: Pacer device noted in the left chest wall. Lungs: Bibasilar curvilinear atelectasis or scarring. No consolidation. Pleural spaces: Small volume left pleural effusion, probably also present on the right. No pneumothorax. Heart/Mediastinum: No cardiomegaly. Bones/joints: Visualized osseous structures are intact. XR/XR chest 1V portable [id number] IMPRESSION: Small volume left pleural effusion, probably also present on the right.
[2023-09-08] MEDS: FUROsemide 10 mg/mL SDV 4mL 40 MG IVP (14:30)
[2023-09-08 15:14] LABS: NT Pro B Type Natriuretic Pept 3649 pg/mL (0-450)
[2023-09-08 18:21] LABS: Blood Urine 3+ (Negative); Glucose Urine UA Norm (Normal); Ketones Urine Negative (Negative); Protein Urine Neg (Negative); Specific Gravity, Urine 1.015 (1.005-1.030); Urine Appearance Clear (CLEAR); Urine Color Yellow (Yellow); pH Urine 5 (5-7)
[2023-09-08 18:22] LABS: Add Urine Microscopic? YES; Bilirubin Urine Neg (Negative); Leukocyte Esterase Urine Negative (Negative); Nitrate Urine Negative (Negative); Urobilinogen Urine Norm (Negative)
[2023-09-08 18:37] LABS: Add Urine Culture? No; Mucus Urine TRACE /hpf; WBC Urine 0-4 /hpf (0-5)
--- NOTE | 2023-09-08 19:32 | ECG_ITS ---
[facility] Test Date: 2023-09-08 Pat Name: Roland Diaz (Leroy) Department: Room: 268 Gender: Male Recreational Assistant: : [id number] Requested By: Ying Meek Order Number: [id number] Reading MD: Ryan Houser M.D. Measurements Intervals Smoot Rate: 82 P: 94 OH: 255 QRS: -20 QRSD: 186 T: 66 QT: 455 QTc: 534 Interpretive Statements SINUS RHYTHM WITH FIRST DEGREE AV BLOCK LEFT BUNDLE BRANCH BLOCK [120+ ms QRS DURATION, 80+ ms Q/S IN V1/V2, 85+ ms R IN I/aVL/V5/V6] Compared to ECG 09/05/2023 00:52:03 No significant changes Electronically Signed On 09-11-2023 13:26:05 CDT by Ryan Houser M.D. [id number]
--- NOTE | 2023-09-08 19:47 | P.PN_ITS ---
Subjective 2 Subjective: Patient was up for most of the day. He is doing well, however, this evening, he is complaining of some chest pain. This is to be worked up by the hospitalist team. He is still awaiting insurance authorization for transfer to long-term. Medications: Reviewed: Yes Vitals/I&O/Wt Last Vital Signs Temp 98.4 F 09/08/23 19:41 Pulse 79 09/08/23 19:41 Resp 20 H 09/08/23 19:41 BP 162/79 09/08/23 19:41 Pulse Ox 93 09/08/23 19:41 O2 Del Method Room Air 09/08/23 19:41 O2 Flow Rate 3.5 09/06/23 20:00 09/08/23 09/08/23 09/08/23 06:59 14:59 22:59 Intake Total 0 / 1320 960 / 960 680 / 1640 Output Total 650 / 1950 300 / 300 150 / 450 Balance -650 / -630 660 / 660 530 / 1190 Weight last 48 hrs Weight 197 lb 4.8 oz Weight 196 lb 14.4 oz Physical Exam 2 Const: COMMON NORMALS: no acute distress, average body habitus, patient oriented x3 and alert GENERAL APPEARANCE: cooperative and comfortable O RIENTATION/CONSCIOUSNESS: Yes awake HENMT: COMMON NORMALS: normocephalic and atraumatic HEAD & SCALP: n ormocephalic and atraumatic Eye: GENERAL EYE: appearance normal, both eyes and all related structures Chest: COMMONS NORMALS: normal inspection of the chest Resp: COMMON NORMALS: normal respiratory effort EFFORT & INSPECTION: Yes able to speak in complete sentences and Yes symmetric chest movement Extremity: LEFT LOWER EXTREMITY: Yes hip joint (Dressing remains dry and intact) Left hip: Yes palpation (No tenderness), Yes ROM (Not evaluated) and Yes neurovascular exam (Intact distally with no evidence of DVT) Neuro: COMMON NORMALS: patient oriented x3 SENSORIUM/ORIENTATION: Yes alert Psych: COMMON NORMALS: mental status grossly normal APPEARANCE: Yes grossly normal ATTITUDE: Yes calm and Yes engaged ATTENTION/CONCENTRATION: Yes attention grossly intact Skin: COMMON NORMALS: no rashes or lesions noted GENERAL SKIN EXAM: no rashes or lesions noted Urinary Catheter Management: Zhong: Cath Placed During This Visit: yes, but has since been removed by the nurse Reason for Continuing Indwelling Catheter: Decision to DC Catheter Urinary Catheter Date of Insertion: 09/05/23 Urinary Catheter Time of Insertion: 10:28 Date Urinary Catheter Removed: 09/06/23 Time Urinary Catheter Discontinued: 06:10 Data 09/07/23 02:32 09/07/23 02:32 A&P Assessment and plan (1) Closed fracture of neck of left femur: Patient was admitted with diagnosis of a left femoral neck fracture. He underwent cannulated screw fixation of his left femoral neck fracture. This was accomplished uneventfully on September 04. He is currently postop day 3. He is still awaiting approval for transfer to long-term. Reportedly, he has been accepted to [facility], and the patient is in agreement with this plan. Staff is aware that I will be out of town from this point forward, coverage is per my partners, but there is no further orthopedic needs at this point in time. He will remain weightbearing as tolerated. Dressing is to remain in place. Qualifiers: Encounter type: initial encounter Qualified Code(s): S72.002A - Fracture of unspecified part of neck of left femur, initial encounter for closed fracture Attestations 2 Medical Necessity Statement*: Per hospitalist team. Coding Level of Care Code Acute Code for [facility] Diagnoses Closed fracture of neck of left femur, initial encounter S72.002A Encounter type: initial encounter
[2023-09-08 20:26] LABS: Troponin(5th) Baseline 40 ng/L (0-15)
--- NOTE | 2023-09-08 20:48 | PM.MISC ---
Miscellaneous Note Purpose of Documentation: CTSP: chest fullness troponins were negative (less than admit) and pt describes a feeling like he will explode in epigastrum and mid chest. no radiation. also describes burning. hasn't had a bm since admit. VSS h reg with systolic murmur l clear anteriorly a distended with burst of bs at times. did pass flatus while examing e no edema A/P GERD vs gas gi cocktail may use nitro for gerd? will follow expectantly
[2023-09-08] MEDS: lidocaine 2% viscous 15 ML, aluminum-mag hydrox-simethicon 30 ML, sucralfate oral liq 1 GM PO (20:51)
[2023-09-08] MEDS: ondansetron 2 mg/ML SDV 2 mL 4 MG IVP (21:01)
--- NOTE | 2023-09-08 22:40 | PC.NURSE ---
Chest Pain; Pt had an episode of chest pain at shift change. He describes it as in the center of his chest and aching with burning. EKG done, VSS, physician notified and orders received.
[2023-09-09] VITALS (14 sets, daily range): BP systolic 91–160; BP diastolic 47–74; PULSE 67–94; RESP 17–20; TEMP 35.6–37.1; O2SAT 94–99; BMI 27.6
[2023-09-09 01:17] LABS: Basophils % 0.5 %; Eosinophils # 0.2 10^3/uL (0.0-0.8); Eosinophils % 3.8 %; Hematocrit 28.7 % (37-53); Lymphocytes # 0.2 10^3/uL (0.8-4.8); Lymphocytes % 3.8 %; Mean Corpuscular HGB Conc 32.8 g/dL (30-55); Mean Corpuscular Volume 94.7 fl (82-101); Mean Platelet Volume 9.4 fL (7.4-10.4); Monocytes # 0.5 10^3/uL (0.2-0.9); Monocytes % 7.9 %; Neutrophils # 5.04 10^3/uL (1.8-7.7); Neutrophils % 83.3 %; Nucleated Red Blood Cells % 0 %; Platelet Count 115 10^3/cmm (157-399); Red Blood Count 3.03 10^6/uL (3.85-5.65); Red Cell Distribution Width 14.6 % (12.1-15.1); White Blood Count 6.05 10^3/uL (3.29-11.43)
[2023-09-09 01:39] LABS: Anion Gap 17.4 (5-19); Blood Urea Nitrogen 42 mg/dL (8-23); Calcium 8.5 mg/dL (8.5-10.5); Carbon Dioxide 28 mmol/L (22-29); Chloride 95 mmol/L (98-107); Glucose 146 mg/dL (65-115); Magnesium 2.3 mg/dL (1.7-2.3); Osmolality Calculated 295 mOsm/kg (285-295); Potassium 4.4 mmol/L (3.5-5.1); Sodium 136 mmol/L (136-145); Troponin 5 6HR 63.63 ng/L (0-15)
[2023-09-09 01:40] LABS: Creatinine Clr Calc Pharmacy 35.0638
[2023-09-09 01:42] LABS: Troponin 5 6HR Delta 23.63 ng/L (0-12)
[2023-09-09] MEDS: heparin 5,000 unit/mL INJ 1 mL 5000 UNIT SUBCUT ×2 (03:04→16:11)
[2023-09-09] MEDS: nitroglycerin 1 gm/inch oint Pkt 1 INCH TOPICAL (03:04)
[2023-09-09] MEDS: FUROsemide 10 mg/mL SDV 4mL 40 MG IVP (04:45)
[2023-09-09] MEDS: HYDROcodone-acetaminophen 5-325 mg Tablet 1 TAB PO ×3 (06:27→16:34)
[2023-09-09] MEDS: sennosides-docusate Tablet 1 TAB PO (08:10)
[2023-09-09] MEDS: atorvastatin 40 mg Tablet PO (08:10)
[2023-09-09] MEDS: aspirin 81 mg EC Tablet PO (08:10)
[2023-09-09] MEDS: amiodarone 200 mg Tablet PO (08:10)
[2023-09-09] MEDS: pantoprazole DR 40 mg Tablet PO (08:10)
[2023-09-09] MEDS: clopidogrel 75 mg Tablet PO (08:10)
[2023-09-09] MEDS: finasteride 5 mg Tablet PO (08:10)
[2023-09-09] MEDS: tamsulosin 0.4 mg Capsule 0.400000000000000022 MG PO (08:11)
[2023-09-09] MEDS: lactulose oral liq 20 gm/30 mL UDC PO ×2 (08:47→17:50)
[2023-09-09 08:55] LABS: SARS Covid-2 Antigen negative (Negative)
--- NOTE | 2023-09-09 11:04 | PC.SOCIAL ---
IMM Update pg 2 of IMM updated and reviewed w/ patient. Copy provided and copy dated, initialed and placed in chart.
--- NOTE | 2023-09-09 12:01 | P.PN_ITS ---
Subjective 2 Subjective: seen this morning overnight pt had episode of chest pain which felt like a pressure and at times heart burn. he was given gi cocktail and nitro paste which relieved the pain. he has not had anymore chest pain dicussed with cardiology, awaiting further intstructions nitro paste held this AM due to low BP. Vitals/I&O/Wt Last Vital Signs Temp 97.7 F 09/09/23 11:37 Pulse 67 09/09/23 11:37 Resp 18 09/09/23 11:37 BP 137/68 09/09/23 11:37 Pulse Ox 97 09/09/23 11:37 O2 Del Method Nasal Cannula 09/09/23 11:37 O2 Flow Rate 3.5 09/06/23 20:00 09/08/23 09/09/23 09/09/23 22:59 06:59 14:59 Intake Total 1080 / 2040 240 / 240 Output Total 450 / 750 600 / 1350 Balance 630 / 1290 -600 / 690 240 / 240 Weight last 48 hrs Weight 90.01 kg Weight 89.494 kg Physical Exam 2 Narrative: General: No acute distress, AO x3, 2L NC HEENT: PERRLA, pupils bilaterally equal and reactive, pallors not present Chest: Normal vesicular breath sounds, no added sounds, equal good air entry bilaterally chest pain not reproducible to palpation. CVS: S1-S2 regular, no murmurs, no tachycardia, no gallops, no rubs Abdomen: Soft, nontender, no organomegaly, bowel sounds present Neuro: No focal deficits, no facial deformity, Urinary Catheter Management: Zhong: Cath Placed During This Visit: yes, but has since been removed by the nurse Reason for Continuing Indwelling Catheter: Decision to DC Catheter Urinary Catheter Date of Insertion: 09/05/23 Urinary Catheter Time of Insertion: 10:28 Date Urinary Catheter Removed: 09/06/23 Time Urinary Catheter Discontinued: 06:10 Data 09/09/23 01:05 09/09/23 01:05 Micro: Microbiology 09/08/23 17:50 Bacterial Antigens - Final Urine Kidney 09/08/23 17:50 Legionella Urinary Antigen - Final Unknown Source A&P Assessment and plan (1) Syncope and collapse: (2) Closed fracture of neck of left femur: Qualifiers: Encounter type: initial encounter Qualified Code(s): S72.002A - Fracture of unspecified part of neck of left femur, initial encounter for closed fracture (3) CHF (congestive heart failure): Qualifiers: Heart failure chronicity: chronic Heart failure type: systolic Qualified Code(s): I50.22 - Chronic systolic (congestive) heart failure (4) Ischemic cardiomyopathy: (5) Positive cardiac stress test: (6) Aortic stenosis: Qualifiers: Cardiac valve disease etiology: nonrheumatic Qualified Code(s): I35.0 - Nonrheumatic aortic (valve) stenosis (7) S/P TAVR (transcatheter aortic valve replacement): (8) Ventricular tachycardia: (9) Abdominal aortic aneurysm (AAA): (10) 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 # Syncope and collapse: At least 2 episodes in the last 6 weeks. Appreciate ICD interrogation for negative V. tach and V-fib. Patient denies any chest pain. Troponin cycled more so stable. Echocardiogram did not show any regional wall motion abnormality or worsening EF from before. Did show moderate MR and moderate pulmonary hypertension with normal functioning bioprosthetic aortic valve. Check orthostatics once able. Otherwise goal blood pressure less than 140/90 mmHg with mean over 65. Cannot rule out dehydration given patient being on Lasix twice daily at home. EF is normal. # Left hip fracture: Orthopedics has been consulted from the ER. Plan for ORIF. PT, anticoagulation, perioperative antibiotics as per orthopedic team. Patient has been deemed at moderate risk given his extensive cardiac history. Appreciate cardiology recommendations. Monitor hemoglobin postoperatively. # History of CHF, pulmonary hypertension: Normal EF with moderate pulmonary hypertension on echocardiogram done on 09/04. Patient euvolemic. Change Lasix to 40 mg oral daily. # History of A-fib: Continue amiodarone 200 mg daily. Patient not on anticoagulation at home. Telemetry. Currently rate controlled. # History of CAD: No active chest pain. Continue aspirin. Hold Plavix anticipating surgical procedure. Continue atorvastatin. Check A1c, lipid panel. Plan for the day: 09/08 Tolerated ORIF well. Physical therapy. Heparin 5000 every 12 hourly for anticoagulation. [place] 5 mg every 8 hourly for pain. Plan to check orthostatics today with physical therapy. Creatinine up to 1.7. Baseline creatinine seems to be 1.4-2.4. Continue to monitor. Strict input output charting. Pt not on O2 at home order lasix 40 bid home dose - home o2 eval ptd - check bmp in am - bnp 3400 -small b/l pleural effusions - Awaiting insurance authorization - awaiting mail carrier and clerk consult today Full code DVT prophylaxis: SCDs, heparin 5000 every 12 hourly Cardiac diet Protonix for PUD prophylaxis Attestations 2 Medical Necessity Statement*: Requires further hospitalization for post-ORIF care patient with baseline history of CKD, post TAVR, post EVAR, CABG with positive recent stress test while safe discharge planning discharge. 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
[2023-09-09] MEDS: FUROsemide 40 mg Tablet PO (16:10)
[2023-09-09] MEDS: phenyleph-mineral oil-petrolat Oint 28 gm 1 APPLIC TOPICAL (17:55)
--- NOTE | 2023-09-09 18:54 | CTR_ITS ---
PROCEDURE INFORMATION: Exam: CT Abdomen And Pelvis Without Contrast Exam date and time: 09/09/2023 7:10 PM Age: 87 years old Clinical indication: Other: Abdominal distention; Prior surgery; Surgery date: 6+ months; Surgery type: Left hip, tavr, evar TECHNIQUE: Imaging protocol: Computed tomography of the abdomen and pelvis without contrast. Radiation optimization: All CT scans at this facility use at least one of these dose optimization techniques: automated exposure control; mA and/or kV adjustment per patient size (includes targeted exams where dose is matched to clinical indication); or iterative reconstruction. COMPARISON: CT bony pelvis [id number] 09/04/2023 8:34 PM RADIATION DOSE METRICS: Total DLP (mGy-cm): 974 FINDINGS: Tubes, catheters and devices: Aneurysmal dilatation of the abdominal aorta status post endograft repair with an aneurysmal sac measuring up to 7.0 x 6.8 cm, previously 7.1 x 6.9 cm. Heart: Prior TAVR. Severe mitral annular calcifications. Coronary arteries: Coronary arterial atherosclerotic calcifications are present. Liver: Normal. No mass. Gallbladder and bile ducts: Normal. No calcified stones. No ductal dilation. Pancreas: Normal. No ductal dilation. Spleen: Normal. No splenomegaly. Adrenal glands: Normal. No mass. Kidneys and ureters: Right simple appearing renal cyst is present which do not need further follow-up. Stomach and bowel: Unremarkable. No obstruction. No mucosal thickening. Appendix: No evidence of appendicitis. Intraperitoneal space: Unremarkable. No free air. No significant fluid collection. Vasculature: Amorphous calcifications surrounding the central abdominal mesentery vessels centrally. This is of unknown clinical significance but was present on the abdominal CT dated 10/30/2021. Lymph nodes: Unremarkable. No enlarged lymph nodes. Urinary bladder: Unremarkable as visualized. Reproductive: Unremarkable as visualized. Bones/joints: Status post ORIF with 3 cannulated screws spanning the left humeral neck and head. There is a partially visualized tiny locule of air anterior to the proximal left femur with effacement of the intramuscular fat in the anterior compartment of the proximal left lower extremity which is incompletely assessed on this examination. Soft tissues: See Bones/joints finding. CT/CT abdomen pelvis wo con [id number] IMPRESSION: 1. Status post ORIF with 3 cannulated screws spanning the left humeral neck and head. There is a partially visualized tiny locule of air anterior to the proximal left femur with effacement of the intramuscular fat in the anterior compartment of the proximal left lower extremity which is incompletely assessed on this examination. Correlate clinically. 2. No bowel obstruction or inflammatory process associated with the bowel. 3. No free air or significant free fluid in the abdomen or pelvis. 4. No evidence of appendicitis. COMMENTS: Consistent with the [employer]'s Incidental Findings Committee white paper (J Am Britta Radiol 2018): Any incidental renal lesion less than 1 cm or classified as too small to characterize, or any incidental cystic renal lesion characterized as simple-appearing, is likely benign. No follow-up imaging is recommended for these lesions per consensus recommendations based on imaging criteria.
[2023-09-09] MEDS: TRAMadol 50 mg Tablet PO (21:24)
[2023-09-10] VITALS: BP 161/72; PULSE 88; RESP 20; TEMP 37; O2SAT 93
[2023-09-10] MEDS: heparin 5,000 unit/mL INJ 1 mL 5000 UNIT SUBCUT ×2 (03:11→14:12)
[2023-09-10 04:00] VITALS: BP 116/67; PULSE 71; RESP 18; TEMP 36.5; O2SAT 97
[2023-09-10 04:53] VITALS: BMI 27.2
[2023-09-10 05:58] VITALS: PULSE 67
[2023-09-10 06:39] LABS: Basophils # 0.1 10^3/uL (0.0-0.1); Basophils % 0.8 %; Eosinophils # 0.5 10^3/uL (0.0-0.8); Eosinophils % 8.4 %; Hematocrit 25.9 % (37-53); Lymphocytes # 0.4 10^3/uL (0.8-4.8); Lymphocytes % 6.5 %; Mean Corpuscular HGB Conc 32.8 g/dL (30-55); Mean Corpuscular Hemoglobin 31.3 pg (27-33); Mean Corpuscular Volume 95.2 fl (82-101); Mean Platelet Volume 9.7 fL (7.4-10.4); Monocytes # 0.7 10^3/uL (0.2-0.9); Monocytes % 11.2 %; Neutrophils # 4.59 10^3/uL (1.8-7.7); Neutrophils % 72.3 %; Nucleated Red Blood Cells % 0 %; Platelet Count 135 10^3/cmm (157-399); Red Blood Count 2.72 10^6/uL (3.85-5.65); Red Cell Distribution Width 14.8 % (12.1-15.1); White Blood Count 6.34 10^3/uL (3.29-11.43)
[2023-09-10 07:02] LABS: Anion Gap 13.9 (5-19); Blood Urea Nitrogen 37 mg/dL (8-23); Calcium 8.1 mg/dL (8.5-10.5); Carbon Dioxide 29 mmol/L (22-29); Chloride 96 mmol/L (98-107); Creatinine Clr Calc Pharmacy 34.9223; Glucose 88 mg/dL (65-115); Osmolality Calculated 288 mOsm/kg (285-295); Potassium 3.9 mmol/L (3.5-5.1); Sodium 135 mmol/L (136-145)
[2023-09-10] MEDS: aspirin 81 mg EC Tablet PO (07:59)
[2023-09-10] MEDS: clopidogrel 75 mg Tablet PO (07:59)
[2023-09-10] MEDS: finasteride 5 mg Tablet PO (07:59)
[2023-09-10] MEDS: sennosides-docusate Tablet 1 TAB PO (07:59)
[2023-09-10] MEDS: pantoprazole DR 40 mg Tablet PO (07:59)
[2023-09-10] MEDS: atorvastatin 40 mg Tablet PO (07:59)
[2023-09-10] MEDS: tamsulosin 0.4 mg Capsule 0.400000000000000022 MG PO (07:59)
[2023-09-10 08:00] VITALS: BP 126/63; PULSE 69; RESP 18; TEMP 36.4; O2SAT 95
--- NOTE | 2023-09-10 08:29 | P.PN_ITS ---
Subjective 2 Subjective: Patient is s/p left femur neck surgery, this morning he complained of right- sided chest pain, according to the patient it feels like a pulled muscle, he had 1 episode of this kind of pain before the hospital admission when he was trying to lift himself up by pushing his hands against the table felt like a muscle cramp since then whenever he moves or turns around he feels it. He says it has happened once and has not reoccurred. Surgery remains uneventful. Medications: Reviewed: Yes Vitals/I&O/Wt Last Vital Signs Temp 97.7 F 09/10/23 04:00 Pulse 67 09/10/23 05:58 Resp 18 09/10/23 04:00 BP 116/67 09/10/23 04:00 Pulse Ox 97 09/10/23 04:00 O2 Del Method Nasal Cannula 09/10/23 04:00 O2 Flow Rate 2 09/09/23 12:04 09/09/23 09/10/23 09/10/23 22:59 06:59 14:59 Intake Total 360 / 840 240 / 1080 Output Total 200 / 350 1250 / 1600 Balance 160 / 490 -1010 / -520 Weight last 48 hrs Weight 195 lb 8 oz Weight 198 lb 7 oz Physical Exam 2 Const: OTHER: GENERAL: Patient is alert, awake and oriented x3. HEENT: No cyanosis. No icterus. No pallor. HEART: Regular S1 and S2. No murmur, rub or gallop. LUNGS: Clear to auscultate bilaterally. CENTRAL NERVOUS SYSTEM: Grossly nonfocal. EXTREMITIES: Lower extremities without edema Urinary Catheter Management: Zhong: Cath Placed During This Visit: yes, but has since been removed by the nurse Reason for Continuing Indwelling Catheter: Decision to DC Catheter Urinary Catheter Date of Insertion: 09/05/23 Urinary Catheter Time of Insertion: 10:28 Date Urinary Catheter Removed: 09/06/23 Time Urinary Catheter Discontinued: 06:10 Data 09/10/23 05:37 09/10/23 05:37 Micro: Microbiology 09/08/23 17:50 Bacterial Antigens - Final Urine Kidney A&P Assessment and plan (1) Ischemic cardiomyopathy: Chest pain appeared to be atypical, delta troponin was not impressive, according to the patient he pulled his muscle and it is the same place when he feels sometime nag. Last echocardiogram showed normal ejection fraction. He is status post left femur neck surgery. At this point if he does not have any more episodes of chest pain or significant symptoms patient can be discharged. Add isosorbide mononitrate 15 mg to his regimen. Follow-up in cardiology clinic. (2) S/P angioplasty with stent: Appear to be stable, chest pain atypical as above add isosorbide mononitrate to the regimen. (3) S/P TAVR (transcatheter aortic valve replacement): Appear to be working fine and in good condition as per echocardiogram. 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 In the face of reduced renal clearance and stress of surgery we can expect that much of leak. Plan Patient has significant cardiac history. Currently he is asymptomatic. Left bundle branch block is chronic. Recent interrogation of ICD did not reveal arrhythmias. Echo shows normal LV systolic function with moderate MR and normally functioning bioprosthetic aortic valve. Troponins are mildly elevated. He did have an abnormal stress test showing mild to moderate ischemia 2 years ago in RCA and LCx territories however both vessels are occluded with blood flow through collaterals. He needs hip surgery secondary to fracture. No major medical optimization needed at this time. Secondary to his complex cardiac and medical history, he will be at least a moderate cardiac risk patient for the procedure. Recommend interrogation of ICD prior to procedure to confirm syncope/presyncope was not related to VT or arrhythmias. If VT is found, will need coronary angiogram prior to procedure. Discussed with patient risks and further management. Thank you for involving us with care of this patient. We will continue to follow . Please call with questions. 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
[2023-09-10] MEDS: amiodarone 200 mg Tablet PO (09:40)
[2023-09-10] MEDS: FUROsemide 40 mg Tablet PO (09:40)
[2023-09-10] MEDS: polyethylene glycol 3350 Pkt 17 gm PO (09:42)
--- NOTE | 2023-09-10 09:51 | PM.DCS ---
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 Cardiology clearance obtained prior to surgery. Patient underwent surgical fixation of fracture. See progress notes for details. Did have an episode of chest pain but it was ruled in for musculoskeletal. He was evaluated by cardiology. Medical management recommended at this time Aspirin stopped and pt switched over to eliquis 2.5 bid with plavix 75 daily 2/ to dvt ppx purposes post-op. After 1 month of above regimen, eliquis may be stopped and aspirin restarted. He is to f/u with cardiology, orthopedic surgery after discharge. Physical Exam Narrative: General: No acute distress, AO x3, 2L NC HEENT: PERRLA, pupils bilaterally equal and reactive, pallors not present Chest: Normal vesicular breath sounds, no added sounds, equal good air entry bilaterally chest pain not reproducible to palpation. CVS: S1-S2 regular, no murmurs, no tachycardia, no gallops, no rubs Abdomen: Soft, nontender, no organomegaly, bowel sounds present Neuro: No focal deficits, no facial deformity, Urinary Catheter Management: Zhong: Cath Placed During This Visit: yes, but has since been removed by the nurse Reason for Continuing Indwelling Catheter: Decision to DC Catheter Urinary Catheter Date of Insertion: 09/05/23 Urinary Catheter Time of Insertion: 10:28 Date Urinary Catheter Removed: 09/06/23 Time Urinary Catheter Discontinued: 06:10 Discharge Data Studies Completed and Pending Completed Studies During Hospitalization Category Date Time Status CT abdomen pelvis wo con [id number] Stat Cat Scan 09/09/23 18:[address] head wo con* [id number] Stat Cat Scan 09/04/23 18:[address] pelvis wo bone [CT bony pelvis [id number]] Stat Cat Scan 09/04/23 20:05 Completed XR chest 1V portable [id number] Routine Exams 09/08/23 14:18 Completed XR chest 1V portable [id number] Stat Exams 09/04/23 18:45 Completed XR hip LT 2-3V wo/w pel* [id number] Routine Exams 09/05/23 13:00 Completed XR hip LT 2-3V wo/w pel* [id number] Stat Exams 09/04/23 18:45 Completed CV carotid duplex BI* [id number] Routine Ultrasound 09/05/23 06:51 [place] [id number] Routine Ultrasound 09/05/23 06:51 Completed CV. echo complete* [id number] Stat Ultrasound 09/05/23 06:21 Completed Radiology Impressions Head CT 09/04/23 18:50 IMPRESSION: No acute intracranial abnormality. Pelvis CT 09/04/23 20:05 IMPRESSION: Incomplete hairline fracture along the left femoral neck. Carotid Doppler Study 09/05/23 06:51 IMPRESSION: 1. Bilateral carotid atherosclerotic disease with bilateral mild (<50%) CCA/ICA stenoses. 2. Bilateral antegrade vertebral artery flow. REFERENCES: SRU CRITERIA. The degree of internal carotid artery stenosis is based on criteria defined by the Society of Radiologists in Ultrasound (SRU). Normal is no stenosis. Mild is less than 50% stenosis. Moderate is 50-69% stenosis. Severe is greater than 69% stenosis to near occlusion. Near occlusion is a markedly narrowed lumen. Total occlusion is no detectable patent lumen. Venous Duplex 09/05/23 06:51 IMPRESSION: No evidence of deep vein thrombosis. Hip/Pelvis X-Ray 09/05/23 13:00 IMPRESSION: Intraoperative percutaneous pinning LEFT femoral neck fracture. Chest X-Ray 09/08/23 14:18 IMPRESSION: Small volume left pleural effusion, probably also present on the right. Abdomen/Pelvis CT 09/09/23 18:54 IMPRESSION: 1. Status post ORIF with 3 cannulated screws spanning the left humeral neck and head. There is a partially visualized tiny locule of air anterior to the proximal left femur with effacement of the intramuscular fat in the anterior compartment of the proximal left lower extremity which is incompletely assessed on this examination. Correlate clinically. 2. No bowel obstruction or inflammatory process associated with the bowel. 3. No free air or significant free fluid in the abdomen or pelvis. 4. No evidence of appendicitis. COMMENTS: Consistent with the [place] [employer]'s Incidental Findings Committee white paper (J Am Britta Radiol 2018): Any incidental renal lesion less than 1 cm or classified as too small to characterize, or any incidental cystic renal lesion characterized as simple-appearing, is likely benign. No follow-up imaging is recommended for these lesions per consensus recommendations based on imaging criteria. Laboratory Results WBC 6.34 10^3/uL (3.29-11.43) 09/10/23 05:37 RBC 2.72 10^6/uL (3.85-5.65) L 09/10/23 05:37 Hgb 8.50 g/dL (11.27-16.99) L 09/10/23 05:37 Hct 25.9 % (37-53) L 09/10/23 05:37 MCV 95.2 fl (82-101) 09/10/23 05:37 MCH 31.3 pg (27-33) 09/10/23 05:37 MCHC 32.8 g/dL (30-55) 09/10/23 05:37 RDW 14.8 % (12.1-15.1) 09/10/23 05:37 Plt Count 135 10^3/cmm (157-399) L 09/10/23 05:37 MPV 9.7 fL (7.4-10.4) 09/10/23 05:37 Neut % (Auto) 72.3 % 09/10/23 05:37 Lymph % (Auto) 6.5 % 09/10/23 05:37 [place] % (Auto) 11.2 % 09/10/23 05:37 Eos % (Auto) 8.4 % 09/10/23 05:37 Baso % (Auto) 0.8 % 09/10/23 05:37 Neut # (Auto) 4.59 10^3/uL (1.8-7.7) 09/10/23 05:37 Lymph # (Auto) 0.4 10^3/uL (0.8-4.8) L 09/10/23 05:37 [place] # (Auto) 0.7 10^3/uL (0.2-0.9) 09/10/23 05:37 Eos # (Auto) 0.5 10^3/uL (0.0-0.8) 09/10/23 05:37 Baso # (Auto) 0.1 10^3/uL (0.0-0.1) 09/10/23 05:37 Nucleated RBC % (auto) 0 % 09/10/23 05:37 Nucleated RBCs # 0.0 /100WBC 09/10/23 05:37 D-Dimer 16.77 ug/mLFEU (0-0.59) H 09/04/23 17:38 Specimen Type Arterial 09/04/23 20:43 Sample Site Radial, right 09/04/23 20:43 ABG pH 7.41 (7.35-7.45) 09/04/23 20:43 ABG pCO2 44.5 mmHg (35-45) 09/04/23 20:43 ABG pO2 55.0 mmHg (80.0-100.0) L 09/04/23 20:43 ABG HCO3 27.9 mmol/L (22-26) H 09/04/23 20:43 ABG Base Excess 2.7 mmol/L (-2.0-2.0) H 09/04/23 20:43 Marvin Test Pos 09/04/23 20:43 Hematocrit 36.5 % (42-52) L 09/04/23 20:43 O2 Delivery Device Nc 09/04/23 20:43 O2 Liters/Min 5.0 % 09/04/23 20:43 Campus Recruiting Coordinator ID [email or web address] 09/04/23 20:43 Sodium 135 mmol/L (136-145) L 09/10/23 05:37 Potassium 3.9 mmol/L (3.5-5.1) 09/10/23 05:37 Chloride 96 mmol/L (98-107) L 09/10/23 05:37 Carbon Dioxide 29 mmol/L (22-29) 09/10/23 05:37 Anion Gap 13.9 (5-19) 09/10/23 05:37 BUN 37 mg/dL (8-23) H 09/10/23 05:37 Creatinine 1.7 mg/dL (0.7-1.2) H 09/10/23 05:37 GFR Calculation Not Reportable 09/10/23 05:37 Glucose 88 mg/dL (65-115) 09/10/23 05:37 Estimat Average Glucose 103 09/05/23 04:32 Hemoglobin A1c 5.2 % (4.0-6.0) 09/05/23 04:32 Calculated Osmolality 288 mOsm/kg (285-295) 09/10/23 05:37 Calcium 8.1 mg/dL (8.5-10.5) L 09/10/23 05:37 Magnesium 2.3 mg/dL (1.7-2.3) 09/09/23 01:05 Iron 30 ug/dL (59-158) L 09/05/23 04:32 TIBC 200 mcg/dl 09/05/23 04:32 % Saturation 15.0 % (20-50) L 09/05/23 04:32 Unsat Iron Binding 170 ug/dL (112-347) 09/05/23 04:32 Total Bilirubin 0.2 mg/dL (0.15-1.2) 09/07/23 02:32 AST 20 U/L (0-40) 09/07/23 02:32 ALT < 5 U/L (0-41) 09/07/23 02:32 Alkaline Phosphatase 117 U/L (40-130) 09/07/23 02:32 Creatine Kinase 51 U/L (39-308) 09/04/23 17:38 Troponin T Baseline 40 ng/L (0-15) H 09/08/23 19:57 Troponin T 120 Minute 42.20 ng/L (0-15) H 09/08/23 22:32 Delta Troponin T 2.20 ABS# (0-10) 09/08/23 22:32 Troponin T Hi Sens 6Hr 63.63 ng/L (0-15) H 09/09/23 01:05 Troponin T Hi Sens 6Hr Delta 23.63 ng/L (0-12) H* 09/09/23 01:05 NT-Pro-B Natriuret Pep 3649 pg/mL (0-450) H 09/08/23 05:29 Total Protein 5.6 g/dL (6.6-8.7) L 09/07/23 02:32 Albumin 3.3 g/dL (3.5-5.2) L 09/07/23 02:32 Globulin 2.3 g/dL (1.3-4.6) 09/07/23 02:32 Triglycerides 59 mg/dL (0-150) 09/05/23 04:32 Cholesterol 155 mg/dL (0-200) 09/05/23 04:32 LDL Cholesterol, Calc 87 mg/dL (50-129) 09/05/23 04:32 Total VLDL Cholesterol 12 mg/dL (0-30) 09/05/23 04:32 HDL Cholesterol 56 mg/dL (60-100) L 09/05/23 04:32 Cholesterol/HDL Ratio 2.77 mg/dL (1.0-5.00) 09/05/23 04:32 Vitamin B12 497 pg/mL (232-1245) 09/05/23 04:32 Folate > 20.0 ng/mL (4.5-32.2) 09/06/23 04:59 Procalcitonin 0.20 ng/mL (0-0.5) 09/08/23 05:29 TSH 0.48 uIU/mL (0.27-4.20) 09/05/23 04:32 Urine Color Yellow (Yellow) 09/08/23 17:50 Urine Appearance Clear (CLEAR) 09/08/23 17:50 Urine pH 5 (5-7) 09/08/23 17:50 Ur Specific [place] 1.015 (1.005-1.030) 09/08/23 17:50 Urine Protein Neg (Negative) 09/08/23 17:50 Urine Glucose (UA) Norm (Normal) 09/08/23 17:50 Urine Ketones Negative (Negative) 09/08/23 17:50 Urine Blood 3+ (Negative) H 09/08/23 17:50 Urine Nitrate Negative (Negative) 09/08/23 17:50 Urine Bilirubin Neg (Negative) 09/08/23 17:50 Urine Urobilinogen Norm mg/dL (Negative) 09/08/23 17:50 Ur Leukocyte Esterase Negative (Negative) 09/08/23 17:50 Urine RBC 5-10 /hpf (0-2) H 09/08/23 17:50 Urine WBC 0-4 /hpf (0-5) H 09/08/23 17:50 Ur Squamous Epith Cells None /hpf (0-5) 09/08/23 17:50 Calcium Oxalate Crystal 0-4 /hpf H 09/04/23 18:59 Amorphous Sediment Not Reportable 09/08/23 17:50 Urine Bacteria None /hpf (NONE) 09/08/23 17:50 Urine Mucus Trace /hpf 09/08/23 17:50 SARS-CoV-2 Ag (Rapid) negative (Negative) 09/09/23 08:20 Vitals Last Vital Signs Temp 97.6 F 09/10/23 08:00 Pulse 69 09/10/23 08:00 Resp 18 09/10/23 08:00 BP 126/63 09/10/23 08:00 Pulse Ox 95 09/10/23 08:00 O2 Del Method Nasal Cannula 09/10/23 04:00 O2 Flow Rate 2 09/09/23 12:04 Discharge Plan Discharge Patient Disposition: Xfer SNF Condition: Stable Prescriptions: New hydrocodone-acetaminophen 5-325 mg Tablet 1 tab PO Q4H PRN (Reason: Moderate Pain) 7 Days Qty: 30 0RF Eliquis 2.5 mg tablet 2.5 mg PO BID 30 Days Qty: 60 0RF Continued docusate sodium [Colace] 100 mg capsule 100 mg PO BID PRN (Reason: Constipation) nitroglycerin [Nitrostat] 0.4 mg tablet, sublingual 0.4 mg SUBLINGUAL Q5M PRN (Reason: Chest Pain) Qty: 25 3RF sodium chloride 5 % drops 1 drp ophthalmic (eye) DAILY PRN (Reason: dry eye(s)) Qty: 15 3RF zinc acetate 50 mg (zinc) capsule 50 mg PO DAILY cyanocobalamin (vitamin B-12) [Vitamin B-12] 250 mcg tablet 250 mcg PO DAILY cholecalciferol (vitamin D3) 125 mcg (5,000 unit) capsule 125 mcg PO DAILY ferrous sulfate 325 mg (65 mg iron) tablet 325 mg PO DAILY Qty: 30 3RF Rx Instructions: with breakfast finasteride 5 mg tablet 5 mg PO DAILY Qty: 90 3RF Hold Instructions: Doctor's Order Lasix 40 mg tablet 40 mg PO BID Qty: 60 11RF amiodarone 200 mg tablet 200 mg PO DAILY Qty: 90 3RF clopidogrel 75 mg tablet 75 mg PO DAILY Qty: 90 3RF atorvastatin 40 mg tablet 40 mg PO DAILY Qty: 90 3RF pantoprazole 40 mg tablet,delayed release (DR/EC) 40 mg PO DAILY Qty: 90 3RF potassium chloride 10 mEq tablet extended release See Rx Instructions .ROUTE .COMPLEX Qty: 180 1RF Dose Instruction: TAKE 1 TABLET BY MOUTH TWICE DAILY Rx Instructions: TAKE 1 TABLET BY MOUTH TWICE DAILY tamsulosin 0.4 mg capsule 0.4 mg PO DAILY Qty: 90 3RF Hold Instructions: Doctor's Order Rx Instructions: for urine flow ascorbic acid (vitamin C) [Vitamin C] 1,000 mg Tablet 1,000 mg PO DAILY vitamin A 10,000 unit Capsule 10,000 unit PO DAILY Discontinued aspirin [Adult Aspirin Regimen] 81 mg tablet,delayed release (DR/EC) 81 mg PO DAILY Discharge Orders: Discharge Order (Routine); Ordered 09/10/23 Ordered By: Ying Gaviota Other Ambulatory Orders: Complete Blood Count w/Auto (Q3D) Timeframe: 20230913 Location: Determined by Patient Ordered By: Ying Gaviota Complete Blood Count w/Auto (Q3D) Timeframe: 20230916 Location: Determined by Patient Ordered By: Ying Gaviota Complete Blood Count w/Auto (Q3D) Timeframe: 20230919 Location: Determined by Patient Ordered By: Ying Gaviota Complete Blood Count w/Auto (Q3D) Timeframe: 20230922 Location: Determined by Patient Ordered By: Ying Gaviota Referrals: [facility] [Outside] Ceferino Arias M.D [Physician] - 1 month Aicha Matta MD [Physician] - 09/22/23 9:15 am Alla Sen FNP [Nurse Practitioner] - 1 week Mainor Gan NP [Primary Care Provider] - Discharge Diet: Advance as tolerated and Usual diet Discharge Activity: Increase activity as tolerated, Limit activity as instructed, Use walker/crutches as instructed and As per PT/OT instructions Patient Instructions: Hydrocodone/Acetaminophen (By mouth), Acute Wound Care (DC), Opioid Safety Activity Restrictions/Additional Instructions: Ice to left hip. You may weight-bear as tolerated. Maintain dressing until it comes off on its own. You may shower, but do not soak in water. 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
[2023-09-10 10:48] VITALS: PULSE 73; O2SAT 85; O2SAT 94
[2023-09-10 12:00] VITALS: BP 135/72; PULSE 73; RESP 18; TEMP 37; O2SAT 98
== END 2023-09-10 14:53 | disposition skilled nursing facility (03) | DRG 481 ==
LOC: ER 21:30 → ER IP 21:50 → MEDSURG 09-05 03:46
PROVIDERS: Internal Medicine; Specialist; Student in an Organized Health Care Education/Training Program; Admitting Provider Student in an Organized Health Care Education/Training Program; Emergency Provider Emergency Medicine; PCP Clinical Nurse Specialist Adult Health; Visit Provider Internal Medicine
PROC: 0QS704Z Reposition Left Upper Femur with Internal Fixation Device, Open Approach (ICD-10-PCS; CPT 27236; principal; 2023-09-05 08:00)
DX: S72.002A Fracture of unspecified part of neck of left femur, initial encounter for closed fracture (principal); I48.20 Chronic atrial fibrillation, unspecified; I50.22 Chronic systolic (congestive) heart failure; W18.30XA Fall on same level, unspecified, initial encounter; R55 Syncope and collapse; I25.10 Atherosclerotic heart disease of native coronary artery without angina pectoris; Z95.5 Presence of coronary angioplasty implant and graft; I25.5 Ischemic cardiomyopathy; Z95.2 Presence of prosthetic heart valve; I34.0 Nonrheumatic mitral (valve) insufficiency; H81.10 Benign paroxysmal vertigo, unspecified ear; Z95.810 Presence of automatic (implantable) cardiac defibrillator; Z79.82 Long term (current) use of aspirin; Z79.02 Long term (current) use of antithrombotics/antiplatelets; I95.9 Hypotension, unspecified; I12.9 Hypertensive chronic kidney disease with stage 1 through stage 4 chronic kidney disease, or unspecified chronic kidney disease; N18.30 Chronic kidney disease, stage 3 unspecified; E78.5 Hyperlipidemia, unspecified; E03.9 Hypothyroidism, unspecified; N40.0 Benign prostatic hyperplasia without lower urinary tract symptoms; K21.9 Gastro-esophageal reflux disease without esophagitis
CPT/HCPCS: 36415; 36600; 51702; 70450; 71045; 72192; 73502; 74176; 76000; 80048; 80053; 80061; 81001; 82550; 82607; 82746; 82803; 83036; 83540; 83550; 83735; 83880; 84145; 84443; 84484; 85025; 85378; 86403; 87426; 87449; 93005; 93306; 93880; 93970; 94760; 96372; 96374; 97110; 97116; 97162; 97166; 97530; 97535; 99285; C1713; J0131; J0690; J1100; J1644; J1940; J2270; J2371; J2405; J2704; J3010; J7030

== ENCOUNTER → 2023-10-15 13:15 | Outpatient (BNVA) | payer MEDICARE, SELFPAY | PROVIDERS: PCP Clinical Nurse Specialist Adult Health; Visit Provider Nurse Practitioner Family | DX: Z87.898 Personal history of other specified conditions (principal); Z09 Encounter for follow-up examination after completed treatment for conditions other than malignant neoplasm | CPT/HCPCS: 99213 ==

== ENCOUNTER → 2023-10-27 15:37 | Outpatient (BNVA) | payer MEDICARE, SELFPAY | PROVIDERS: PCP Clinical Nurse Specialist Adult Health; Visit Provider Clinical Nurse Specialist Adult Health | DX: R05.9 Cough, unspecified (principal) | CPT/HCPCS: 87400; 87426 ==

== ENCOUNTER → 2023-11-10 15:45 | Outpatient (BNVA) | payer MEDICARE, SELFPAY | PROVIDERS: PCP Clinical Nurse Specialist Adult Health; Visit Provider Clinical Nurse Specialist Adult Health | DX: D50.8 Other iron deficiency anemias (principal); N18.32 Chronic kidney disease, stage 3b | CPT/HCPCS: 80053; 83735; 85025 ==

== ENCOUNTER → 2023-11-30 09:30 | Outpatient (BNVA) | payer MEDICARE, SELFPAY | PROVIDERS: PCP Clinical Nurse Specialist Adult Health; Visit Provider Nurse Practitioner Family | DX: I11.0 Hypertensive heart disease with heart failure (principal); I50.22 Chronic systolic (congestive) heart failure | CPT/HCPCS: 99214 ==

== ENCOUNTER → 2023-12-28 15:42 | Outpatient (BNVA) | payer MEDICARE, SELFPAY | PROVIDERS: PCP Clinical Nurse Specialist Adult Health; Visit Provider Family Medicine | DX: I10 Essential (primary) hypertension (principal); I25.5 Ischemic cardiomyopathy | CPT/HCPCS: 85025 ==

== ENCOUNTER → 2023-12-30 13:54 | Outpatient (BNVA) | payer MEDICARE, SELFPAY | PROVIDERS: PCP Clinical Nurse Specialist Adult Health; Visit Provider Family Medicine | DX: I10 Essential (primary) hypertension (principal); I25.5 Ischemic cardiomyopathy | CPT/HCPCS: 80053 ==

== ENCOUNTER → 2024-01-06 13:23 | Outpatient (BNVA) | payer MEDICARE, SELFPAY | PROVIDERS: PCP Clinical Nurse Specialist Adult Health; Visit Provider Nurse Practitioner Family | DX: L23.9 Allergic contact dermatitis, unspecified cause (principal); L72.0 Epidermal cyst; L85.3 Xerosis cutis; D22.5 Melanocytic nevi of trunk; L81.4 Other melanin hyperpigmentation; L57.8 Other skin changes due to chronic exposure to nonionizing radiation; L82.1 Other seborrheic keratosis; Z85.828 Personal history of other malignant neoplasm of skin; L57.0 Actinic keratosis | CPT/HCPCS: 17004; 99214 ==

== ENCOUNTER 2024-01-07 14:43 | Emergency (ER) | payer MEDICARE, SELFPAY ==
[2024-01-07 16:03] VITALS: BP 114/66; PULSE 65; RESP 16; TEMP 36.6; O2SAT 95; BMI 25.1
[2024-01-07 16:35] LABS: Basophils # 0.1 10^3/uL (0.0-0.1); Eosinophils # 0.2 10^3/uL (0.0-0.8); Eosinophils % 3.6 %; Lymphocytes # 0.5 10^3/uL (0.8-4.8); Lymphocytes % 8.2 %; Mean Corpuscular HGB Conc 32.4 g/dL (30-55); Mean Corpuscular Volume 92.7 fl (82-101); Mean Platelet Volume 10.2 fL (7.4-10.4); Monocytes # 0.8 10^3/uL (0.2-0.9); Monocytes % 14.4 %; Neutrophils # 4.21 10^3/uL (1.8-7.7); Neutrophils % 72.5 %; Nucleated Red Blood Cells % 0 %; Platelet Count 183 10^3/cmm (157-399); Red Cell Distribution Width 15.5 % (12.1-15.1); White Blood Count 5.82 10^3/uL (3.29-11.43)
[2024-01-07 16:57] LABS: Alanine Aminotransferase 12 U/L (0-41); Albumin Level 4.2 g/dL (3.5-5.2); Alkaline Phosphatase 168 U/L (40-130); Aspartate Amino Transferase 18 U/L (0-40); Blood Urea Nitrogen 45 mg/dL (8-23); Carbon Dioxide 31 mmol/L (22-29); Chloride 90 mmol/L (98-107); Creatinine Clr Calc Pharmacy 29.5878; Globulin 3.5 g/dL (1.3-4.6); Glucose 93 mg/dL (65-115); Lipase 20 U/L (13-60); Osmolality Calculated 291 mOsm/kg (285-295); Sodium 135 mmol/L (136-145); Total Bilirubin 0.5 mg/dL (0.15-1.2); Total Protein 7.7 g/dL (6.6-8.7)
[2024-01-07 17:33] LABS: INR 0.98 (0.8-1.2)
--- NOTE | 2024-01-07 18:00 | ED_ITS ---
HPI - Dental/Oral 2 General: Chief complaint: Dental/Oral Stated complaint: spititng up blood 12 + hrs Time Seen by Provider: 01/07/24 17:58 History of Present Illness: 88-year-old male patient comes in today with some bleeding from underneath his bridge on the right upper jaw. Patient also reports some sinus symptoms with nasal congestion and blood in the mucus. Patient denies any other symptoms or concerns. Patient appears nontoxic. Related Data Home Medications Medication Instructions Recorded Confirmed docusate sodium 100 mg capsule 100 mg PO BID Constipation 04/05/19 12/28/23 (Colace) ascorbic acid (vitamin C) 1,000 mg 1,000 mg PO DAILY 11/06/20 12/28/23 tablet (Vitamin C) vitamin A 3,000 mcg (10,000 unit) 10,000 unit PO DAILY 12/01/21 12/28/23 capsule cyanocobalamin (vitamin B-12) 250 250 mcg PO DAILY 04/29/22 12/28/23 mcg tablet (Vitamin B-12) zinc acetate 50 mg (zinc) capsule 50 mg PO DAILY 07/28/22 12/28/23 cholecalciferol (vitamin D3) 125 125 mcg PO DAILY 11/10/22 12/28/23 mcg (5,000 unit) capsule potassium chloride 10 mEq 10 meq PO BID 09/21/23 12/28/23 tablet,extended release Previous Rx's Medication Instructions Recorded ferrous sulfate 325 mg (65 mg 325 mg PO DAILY #30 tabs 01/08/23 iron) tablet finasteride 5 mg tablet 5 mg PO DAILY #90 tabs 01/20/23 amiodarone 200 mg tablet 200 mg PO DAILY for rhythm #90 tabs 06/09/23 atorvastatin 40 mg tablet 40 mg PO DAILY #90 tabs 07/20/23 clopidogrel 75 mg tablet 75 mg PO DAILY #90 tabs 07/20/23 pantoprazole 40 mg tablet,delayed 40 mg PO DAILY #90 tabs 07/30/23 release tamsulosin 0.4 mg capsule 0.4 mg PO DAILY #90 caps 08/26/23 guaifenesin 200 mg/5 mL oral liquid 200 mg (5 mL) PO Q6H PRN cough 10/27/23 #118 mL furosemide 40 mg tablet (Lasix) 40 mg PO TID #90 tabs 12/22/23 nitroglycerin 0.4 mg sublingual 0.4 mg sublingual Q5M PRN Chest 12/22/23 tablet (Nitrostat) Pain #25 tabs metolazone 5 mg tablet 5 mg PO DAILY fluid retention #20 12/28/23 tabs doxycycline hyclate 100 mg capsule 100 mg PO BID 7 days #14 caps 01/07/24 Allergies Allergy/AdvReac Type Severity Reaction Status Date / Time No Known Allergies Allergy Verified 01/07/24 16:01 Review of Systems 2 General: Reports: 10 or more systems reviewed and unremarkable except in HPI and below PFSH ED 2 PFSH: Medical History Positive cardiac stress test Severe mitral regurgitation 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 Aortic stenosis Ventricular tachycardia Status post AICD placement Stage 3 chronic kidney disease 1.7-2.1 baseline creatinine Essential hypertension CHF (congestive heart failure) Biventricular, systolic and diastolic 02/02/2022: LVEF approximately 50% Hyperlipidemia Anemia iron deficient Hypothyroidism Vitamin B12 deficiency Allergic rhinitis Insomnia ASHD (arteriosclerotic heart disease) Ischemic cardiomyopathy BPH (benign prostatic hyperplasia) Gynecomastia, male Acute kidney injury superimposed on chronic kidney disease Abdominal aortic aneurysm (AAA) 4.3?4.3 approximately 5.04?5.04 distally Peripheral neuropathy History of nonmelanoma skin cancer Claudication of both lower extremities Pulmonary HTN Bradycardia Heart block atrioventricular Prostate cancer SVT (supraventricular tachycardia) Cognitive dysfunction GERD (gastroesophageal reflux disease) TIA (transient ischemic attack) Surgical History Fracture of left hip requiring operative repair S/P TAVR (transcatheter aortic valve replacement) S/P angioplasty with stent Coronary disease status post 3 stents Status post endovascular aneurysm repair (EVAR) S/P implantation of automatic cardioverter/defibrillator (AICD) [facility] [employer] 08/07 Family History Father CAD (coronary artery disease) Mother CAD (coronary artery disease) Congestive heart failure (CHF) Brother Parkinson disease Sister Fibromyalgia Other Cancer Social History Smoking and tobacco/nicotine status: never used tobacco/nicotine Alcohol intake: never Substance/Drug Use: never Lives independently: Yes Marital status: / service: No Current occupational status: retired Current gender identity: Male Gillian[employer] Physical Exam 2 Const: COMMON NORMALS: alert HENMT: COMMON NORMALS: normocephalic HEAD & SCALP: normocephalic Neck/C-Spine: COMMON NORMALS: full ROM Chest: COMMONS NORMALS: normal inspection of the chest Resp: COMMON NORMALS: normal respiratory effort and clear to auscultation bilaterally AUSCULTATION: clear to auscultation bilaterally Cardio: COMMON NORMALS: regular rate and regular rhythm RATE: regular rate RHYTHM: regular rhythm Back/Pelvis: COMMON NORMALS: thoracic and lumbar spine normal to inspection Extremity: COMMON NORMALS: full ROM Neuro: SENSORIUM/ORIENTATION: Yes alert Skin: COMMON NORMALS: turgor normal GENERAL SKIN EXAM: turgor normal Course 2 Vital Signs: Vital signs: Vital Signs Temperature 97.9 F 01/07/24 16:03 Pulse Rate 63 01/07/24 18:19 Respiratory Rate 16 01/07/24 16:03 Blood Pressure 109/67 01/07/24 18:19 Pulse Oximetry 94 01/07/24 18:19 [facility] - Dental/Oral Medical Decision Making 88-year-old male patient comes in today with complaints of bleeding from his gumline along the bridge of his right upper jaw. Patient also complains of some sinus pain and drainage. Exam is unremarkable. No signs of redness or irritation is noted along the gum. Patient does have some redness of the turbinates and some swelling of the turbinates of both nostrils. Bilateral TMs are normal. Posterior pharynx shows no bleeding. Differential diagnosis includes epistaxis, rhinosinusitis, dental implant infection. Will start patient on antibiotics for rhinosinusitis and also cover for dental implant infection. No signs of severe illness was noted. Patient was discharged home with recommendation to follow-up with dentist for further evaluation and treatment. Laboratory values noted and normal hemoglobin, and some mild hypokalemia at 3.0. Patient does take routine potassium to alleviate the hypokalemia secondary to diuretic use. Lab Data 01/07/24 16:20 01/07/24 16:20 Laboratory Results WBC 5.82 10^3/uL (3.29-11.43) 01/07/24 16:20 RBC 4.10 10^6/uL (3.85-5.65) 01/07/24 16:20 Hgb 12.30 g/dL (11.27-16.99) 01/07/24 16:20 Hct 38.0 % (37-53) 01/07/24 16:20 MCV 92.7 fl (82-101) 01/07/24 16:20 MCH 30.0 pg (27-33) 01/07/24 16:20 MCHC 32.4 g/dL (30-55) 01/07/24 16:20 RDW 15.5 % (12.1-15.1) H 01/07/24 16:20 Plt Count 183 10^3/cmm (157-399) 01/07/24 16:20 MPV 10.2 fL (7.4-10.4) 01/07/24 16:20 Neut % (Auto) 72.5 % 01/07/24 16:20 Lymph % (Auto) 8.2 % 01/07/24 16:20 [place] % (Auto) 14.4 % 01/07/24 16:20 Eos % (Auto) 3.6 % 01/07/24 16:20 Baso % (Auto) 1.0 % 01/07/24 16:20 Neut # (Auto) 4.21 10^3/uL (1.8-7.7) 01/07/24 16:20 Lymph # (Auto) 0.5 10^3/uL (0.8-4.8) L 01/07/24 16:20 [place] # (Auto) 0.8 10^3/uL (0.2-0.9) 01/07/24 16:20 Eos # (Auto) 0.2 10^3/uL (0.0-0.8) 01/07/24 16:20 Baso # (Auto) 0.1 10^3/uL (0.0-0.1) 01/07/24 16:20 Nucleated RBC % (auto) 0 % 01/07/24 16:20 Nucleated RBCs # 0.0 /100WBC 01/07/24 16:20 PT 13.30 SECONDS (12.1-14.9) 01/07/24 16:20 INR 0.98 (0.8-1.2) 01/07/24 16:20 Sodium 135 mmol/L (136-145) L 01/07/24 16:20 Potassium 3.0 mmol/L (3.5-5.1) L 01/07/24 16:20 Chloride 90 mmol/L (98-107) L 01/07/24 16:20 Carbon Dioxide 31 mmol/L (22-29) H 01/07/24 16:20 Anion Gap 17.0 (5-19) 01/07/24 16:20 BUN 45 mg/dL (8-23) H 01/07/24 16:20 Creatinine 1.9 mg/dL (0.7-1.2) H 01/07/24 16:20 GFR Calculation Not Reportable 01/07/24 16:20 Glucose 93 mg/dL (65-115) 01/07/24 16:20 Calculated Osmolality 291 mOsm/kg (285-295) 01/07/24 16:20 Calcium 9.0 mg/dL (8.5-10.5) 01/07/24 16:20 Total Bilirubin 0.5 mg/dL (0.15-1.2) 01/07/24 16:20 AST 18 U/L (0-40) 01/07/24 16:20 ALT 12 U/L (0-41) 01/07/24 16:20 Alkaline Phosphatase 168 U/L (40-130) H 01/07/24 16:20 Total Protein 7.7 g/dL (6.6-8.7) 01/07/24 16:20 Albumin 4.2 g/dL (3.5-5.2) 01/07/24 16:20 Globulin 3.5 g/dL (1.3-4.6) 01/07/24 16:20 Lipase 20 U/L (13-60) 01/07/24 16:20 No radiology studies performed this visit Discharge Plan Discharge Patient Disposition: Home Clinical Impression: Acute rhinosinusitis Condition: Stable Prescriptions: New doxycycline hyclate 100 mg capsule 100 mg PO BID 7 Days Qty: 14 0RF No Action docusate sodium [Colace] 100 mg capsule 100 mg PO BID metolazone 5 mg tablet 5 mg PO DAILY Qty: 20 0RF Rx Instructions: first day, just 1/2 tablet. Increase to whole tab second day zinc acetate 50 mg (zinc) capsule 50 mg PO DAILY cyanocobalamin (vitamin B-12) [Vitamin B-12] 250 mcg tablet 250 mcg PO DAILY cholecalciferol (vitamin D3) 125 mcg (5,000 unit) capsule 125 mcg PO DAILY guaifenesin 200 mg/5 mL liquid 200 mg PO Q6H PRN (Reason: cough) Qty: 118 0RF nitroglycerin [Nitrostat] 0.4 mg tablet, sublingual 0.4 mg SUBLINGUAL Q5M PRN (Reason: Chest Pain) Qty: 25 3RF Lasix 40 mg tablet 40 mg PO TID Qty: 90 11RF ferrous sulfate 325 mg (65 mg iron) tablet 325 mg PO DAILY Qty: 30 3RF Rx Instructions: with breakfast finasteride 5 mg tablet 5 mg PO DAILY Qty: 90 3RF Hold Instructions: Doctor's Order amiodarone 200 mg tablet 200 mg PO DAILY Qty: 90 3RF clopidogrel 75 mg tablet 75 mg PO DAILY Qty: 90 3RF atorvastatin 40 mg tablet 40 mg PO DAILY Qty: 90 3RF pantoprazole 40 mg tablet,delayed release (DR/EC) 40 mg PO DAILY Qty: 90 3RF tamsulosin 0.4 mg capsule 0.4 mg PO DAILY Qty: 90 3RF Hold Instructions: Doctor's Order ascorbic acid (vitamin C) [Vitamin C] 1,000 mg Tablet 1,000 mg PO DAILY potassium chloride 10 mEq tablet extended release 10 meq PO BID vitamin A 10,000 unit Capsule 10,000 unit PO DAILY Discharge Orders: Discharge ED (Routine); Ordered 01/07/24 Ordered By: Vick Mott Referrals: Cayla Perea MD [Primary Care Provider] - Discharge Diet: Usual diet Discharge Activity: Increase activity as tolerated Patient Instructions: Rhinosinusitis (ED) Activity Restrictions/Additional Instructions: Home and rest. Take antibiotics as directed. Follow-up with dentist regarding your bleeding from your bridge. Follow-up with primary care otherwise for further instructions. Coding Level of Care Code ED Tele[employer] Analyst for Jose Carlos Omer
[2024-01-07] MEDS: doxycycline 100 mg Tablet PO (18:15)
[2024-01-07 18:19] VITALS: BP 109/67; PULSE 63; O2SAT 94
== END 2024-01-07 18:20 | disposition home or self-care (01) ==
PROVIDERS: Emergency Medicine; Emergency Provider Nurse Practitioner Family; PCP Family Medicine
DX: J01.90 Acute sinusitis, unspecified (principal); Z79.02 Long term (current) use of antithrombotics/antiplatelets; I13.0 Hypertensive heart and chronic kidney disease with heart failure and stage 1 through stage 4 chronic kidney disease, or unspecified chronic kidney disease; N18.30 Chronic kidney disease, stage 3 unspecified; I50.9 Heart failure, unspecified; E78.5 Hyperlipidemia, unspecified; Z85.46 Personal history of malignant neoplasm of prostate; Z86.73 Personal history of transient ischemic attack (TIA), and cerebral infarction without residual deficits; Z95.5 Presence of coronary angioplasty implant and graft
CPT/HCPCS: 80053; 83690; 85025; 85610; 99283

== ENCOUNTER → 2024-02-17 10:57 | Outpatient (BNVA) | payer MEDICARE, SELFPAY | PROVIDERS: PCP Family Medicine; Visit Provider Internal Medicine Cardiovascular Disease | DX: Z45.02 Encounter for adjustment and management of automatic implantable cardiac defibrillator (principal) | CPT/HCPCS: 93296 ==

== ENCOUNTER → 2024-03-14 12:07 | Outpatient (BNVA) | payer MEDICARE, SELFPAY | PROVIDERS: PCP Family Medicine; Visit Provider Family Medicine | DX: I10 Essential (primary) hypertension (principal); I25.5 Ischemic cardiomyopathy; I50.22 Chronic systolic (congestive) heart failure | CPT/HCPCS: 80053; 85025 ==

== ENCOUNTER → 2024-05-09 12:45 | Outpatient (BNVA) | payer MEDICARE, SELFPAY | PROVIDERS: PCP Family Medicine; Visit Provider Family Medicine | DX: I10 Essential (primary) hypertension (principal); K21.9 Gastro-esophageal reflux disease without esophagitis; N18.32 Chronic kidney disease, stage 3b; D50.8 Other iron deficiency anemias; E78.00 Pure hypercholesterolemia, unspecified | CPT/HCPCS: 80053; 80061; 83540; 83735; 85025 ==

== ENCOUNTER → 2024-06-03 10:01 | Outpatient (BNVA) | payer MEDICARE, SELFPAY | PROVIDERS: PCP Family Medicine; Visit Provider Internal Medicine Cardiovascular Disease | DX: Z95.2 Presence of prosthetic heart valve (principal); I25.119 Atherosclerotic heart disease of native coronary artery with unspecified angina pectoris; I10 Essential (primary) hypertension | CPT/HCPCS: 99214 ==

== ENCOUNTER 2024-06-17 12:06 | Inpatient (IN) | payer MEDICARE, SELFPAY ==
[2024-06-17] VITALS (12 sets, daily range): BP systolic 107–125; BP diastolic 56–88; PULSE 55–66; RESP 19–25; TEMP 36.6; O2SAT 86–97; BMI 26.3
--- NOTE | 2024-06-17 12:11 | ECG_ITS ---
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 Measurements Intervals [place] Rate: 61 P: 0 MN: 0 QRS: -18 QRSD: 197 T: 125 QT: 495 QTc: 499 Interpretive Statements ATRIAL FIBRILLATION LEFT BUNDLE BRANCH BLOCK [120+ ms QRS DURATION, 80+ ms Q/S IN V1/V2, 85+ ms R IN I/aVL/V5/V6] Compared to ECG 09/22/2023 00:50:21 Sinus rhythm no longer present Electronically Signed On 06-17-2024 14:20:30 CDT by Chucho Murray M.D. [id number]
--- NOTE | 2024-06-17 12:11 | XR_ITS ---
WS: [id number] Exam: XR chest 1V portable [id number] Date/Time of Exam: 06/17/2024 12:39 PM Reason For Exam: dyspnea Comparison 09/20/2023. There is cardiac enlargement with increased pulmonary vascularity. No consolidating infiltrates are noted. Chronic interstitial changes noted bilaterally. Signs of aortic valve replacement. Calcification of the mitral valve annulus. An ICD superimposes the LEFT chest. No pleural effusion. Bony structures are intact. The mediastinum is normal in contour. XR/XR chest 1V portable [id number] IMPRESSION: 1. Cardiac enlargement with increased pulmonary vascularity. No acute process n oted.
--- NOTE | 2024-06-17 12:47 | ED_ITS ---
HPI - Weakness 2 General: Chief complaint: Weakness Stated complaint: weakness/low bp Time Seen by Provider: 06/17/24 12:44 History of Present Illness: 88 yo m in by private vehicle to ER with c/o feeling weak/fatigued with lower than usual BP. Pt with large list of comorbid conditions (see list below). Patient brought a list with him to help identify his symptoms which include shortness of breath, particular with exertion. Weight gain of 10 pounds in 1 week. Diastolic blood pressure in the 50s, systolic blood pressure in the 1 teens, general feeling of dizziness and weakness, aching when walking, feels his water pills are out of balance (Lasix 40 mg 3 times daily, metolazone 5 mg daily), feels dehydrated although he has having third spacing of fluid, dry cough, dry mouth. PMH: Positive cardiac stress test ? Severe mitral regurgitation ? 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 Aortic stenosis ? Ventricular tachycardia Status post AICD placement ? Stage 3 chronic kidney disease 1.7-2.1 baseline creatinine ? Essential hypertension ? CHF (congestive heart failure) Biventricular, systolic and diastolic 02/02/2022: LVEF approximately 50% ? Hyperlipidemia ? Anemia iron deficient ? Hypothyroidism ? Vitamin B12 deficiency ? Allergic rhinitis ? Insomnia ? ASHD (arteriosclerotic heart disease) ? Ischemic cardiomyopathy ? ? BPH (benign prostatic hyperplasia) ? Gynecomastia, male ? Acute kidney injury superimposed on chronic kidney disease ? Abdominal aortic aneurysm (AAA) 4.3?4.3 approximately 5.04?5.04 distally ? Peripheral neuropathy ? History of nonmelanoma skin cancer ? Claudication of both lower extremities ? Pulmonary HTN ? Bradycardia ? Heart block atrioventricular ? Prostate cancer ? SVT (supraventricular tachycardia) ? Cognitive dysfunction ? GERD (gastroesophageal reflux disease) ? TIA (transient ischemic attack) Associated symptoms: Denies chest pain, chills, dysuria, fever(s), headache(s) or syncope Review of Systems 2 General: Reports: 10 or more systems reviewed and unremarkable except in HPI and below Const: Denies: fever(s) or chills Eyes: Denies: change in vision ENMT: Denies: throat pain Card: Denies: chest pain or syncope Resp: Denies: productive cough GI: Denies: abdominal pain or diarrhea : Denies: flank pain or dysuria Musc: Denies: neck pain, back pain or extremity pain Skin/Breast: Denies: rash or erythema Neuro: Denies: headache(s), numbness in extremities, weakness in extremities or lack of coordination PFSH ED 2 PFSH: Medical History Positive cardiac stress test Severe mitral regurgitation 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 Aortic stenosis Ventricular tachycardia Status post AICD placement Stage 3 chronic kidney disease 1.7-2.1 baseline creatinine Essential hypertension CHF (congestive heart failure) Biventricular, systolic and diastolic 02/02/2022: LVEF approximately 50% Hyperlipidemia Anemia iron deficient Hypothyroidism Vitamin B12 deficiency Allergic rhinitis Insomnia ASHD (arteriosclerotic heart disease) Ischemic cardiomyopathy BPH (benign prostatic hyperplasia) Gynecomastia, male Acute kidney injury superimposed on chronic kidney disease Abdominal aortic aneurysm (AAA) 4.3?4.3 approximately 5.04?5.04 distally Peripheral neuropathy History of nonmelanoma skin cancer Claudication of both lower extremities Pulmonary HTN Bradycardia Heart block atrioventricular Prostate cancer SVT (supraventricular tachycardia) Cognitive dysfunction GERD (gastroesophageal reflux disease) TIA (transient ischemic attack) Surgical History Fracture of left hip requiring operative repair S/P TAVR (transcatheter aortic valve replacement) S/P angioplasty with stent Coronary disease status post 3 stents Status post endovascular aneurysm repair (EVAR) S/P implantation of automatic cardioverter/defibrillator (AICD) [facility] [employer] 08/07 Family History Father CAD (coronary artery disease) Mother CAD (coronary artery disease) Congestive heart failure (CHF) Brother Parkinson disease Sister Fibromyalgia Other Cancer Social History Smoking and tobacco/nicotine status: never used tobacco/nicotine Alcohol intake: never Substance/Drug Use: never Lives independently: Yes Marital status: / service: No Current occupational status: retired Current gender identity: Male Gillian/[employer] Physical Exam 2 Narrative: EXAM NARRATIVE: Elderly, awake, alert, oriented, no acute distress. Positive pedal edema with pitting Minimal JVD while sitting up Loud cardiac murmur Irregular heartbeat, rate around 60 Radial pulse palpable Const: COMMON NORMALS: no limitations, alert and well nourished EXAM LIMITATIONS: no altered mental status HENMT: COMMON NORMALS: normocephalic, atraumatic and external ears normal H EAD & SCALP: normocephalic and atraumatic EXTERNAL EAR: Yes external ears normal MOUTH: no muffled voice Eye: COMMON NORMALS: EOMs intact bilaterally, conjunctivae normal and no scleral icterus CONJUNCTIVA: Yes conjunctivae normal Neck/C-Spine: GENERAL: Yes normal visual inspection and Yes trachea midline Resp: COMMON NORMALS: normal respiratory effort and No use of accessory muscles Cardio: COMMON NORMALS: regular rate RATE: regular rate GI: COMMON NORMALS: Soft to palpation and non-tender PALPATION: Yes Soft to palpation and No Guarding due to palpation present (GI) Extremity: COMMON NORMALS: negative for no pedal edema Neuro: COMMON NORMALS: moves all extremities, no focal motor deficits and no sensory deficits noted SENSORIUM/ORIENTATION: Yes alert SPEECH: speech normal Psych: COMMON NORMALS: mental status grossly normal, Normal thought process present, cooperative, normal affect and speech normal SPEECH: Yes normal speech THOUGHT PROCESS: Normal thought process present Skin: COMMON NORMALS: no rashes or lesions noted, turgor normal and no jaundice GENERAL SKIN EXAM: no rashes or lesions noted and turgor normal Course 2 Vital Signs: Vital signs: Vital Signs Temperature 97.8 F 06/17/24 12:22 Pulse Rate 60 06/17/24 14:35 Respiratory Rate 24 H 06/17/24 14:35 Blood Pressure 125/67 06/17/24 14:35 Pulse Oximetry 95 06/17/24 14:35 Oxygen Delivery Me thod Room Air 06/17/24 12:22 MDM - Weakness Medical Decision Making 88-year-old male with multiple nonspecific symptoms that have a large differential diagnosis from congestive heart failure, JOSAFAT, intravascular dehydration with third spacing, low albumin, electrolyte abnormality, glycemic abnormality, acid-base disturbance, medication interactions or side effects, atypical ACS, deconditioning, aging, pleural effusions, pulmonary hypertension, hyponatremia, and large differential diagnosis. EKG was obtained at 12:49 PM. EP interpretation. Appearance of atrial fibrillation with a wide QRS complex with left bundle branch block morphology, ventricular rate of 61. There are discordant ST changes which are not in excess of the QRS amplitude. Chest x-ray 1 view. EP interpretation. Mild cardiomegaly, pulmonary vascular congestion, perhaps small right-sided effusion, no focal infiltrates. Labs reviewed. There is stable anemia. Normal white blood cell count. Platelets of 134,000. There is hyponatremia, hypochloremia, hypokalemia, elevated BUN and creatinine. He does have some CKD and a chronic elevation in his BUN but this is worse than usual. Magnesium is normal. Troponin is elevated at 81. Troponins have been fluctuating up and down in the past. BNP is 13,515. Given patient's age and comorbid conditions as well as multiple mild abnormalities, we are going to admit him to the hospital. He does have a history of an abnormal nuclear cardiac test with reversible defects. He does have a very loud murmur and has a history of mitral regurg. He is already been essentially maxed out on diuresis and is showing signs of JOSAFAT. I have paged the hospitalist for admission and we can consider cardiac consultation. 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 He has deferred to Dr. Arias who is on-call. I have spoken with Dr. Arias who will do a consult. Medical Records I reviewed the patient's medical records. Lab Data I reviewed the patient's lab results. 06/17/24 12:55 06/17/24 12:55 Radiology Impressions Chest X-Ray 06/17/24 12:11 IMPRESSION: 1. Cardiac enlargement with increased pulmonary vascularity. No acute process noted. Laboratory Results WBC 5.04 10^3/uL (3.29-11.43) 06/17/24 12:55 RBC 3.63 10^6/uL (3.85-5.65) L 06/17/24 12:55 Hgb 10.60 g/dL (11.27-16.99) L 06/17/24 12:55 Hct 33.0 % (37-53) L 06/17/24 12:55 MCV 90.9 fl (82-101) 06/17/24 12:55 MCH 29.2 pg (27-33) 06/17/24 12:55 MCHC 32.1 g/dL (30-55) 06/17/24 12:55 RDW 16.4 % (12.1-15.1) H 06/17/24 12:55 Plt Count 134 10^3/cmm (157-399) L 06/17/24 12:55 MPV 9.9 fL (7.4-10.4) 06/17/24 12:55 Neut % (Auto) 79.5 % 06/17/24 12:55 Lymph % (Auto) 5.4 % 06/17/24 12:55 [place] % (Auto) 12.1 % 06/17/24 12:55 Eos % (Auto) 2.0 % 06/17/24 12:55 Baso % (Auto) 0.8 % 06/17/24 12:55 Neut # (Auto) 4.01 10^3/uL (1.8-7.7) 06/17/24 12:55 Lymph # (Auto) 0.3 10^3/uL (0.8-4.8) L 06/17/24 12:55 [place] # (Auto) 0.6 10^3/uL (0.2-0.9) 06/17/24 12:55 Eos # (Auto) 0.1 10^3/uL (0.0-0.8) 06/17/24 12:55 Baso # (Auto) 0.0 10^3/uL (0.0-0.1) 06/17/24 12:55 Nucleated RBC % (auto) 0 % 06/17/24 12:55 Nucleated RBCs # 0.0 /100WBC 06/17/24 12:55 Sodium 133 mmol/L (136-145) L 06/17/24 12:55 Potassium 3.0 mmol/L (3.5-5.1) L 06/17/24 12:55 Chloride 91 mmol/L (98-107) L 06/17/24 12:55 Carbon Dioxide 28 mmol/L (22-29) 06/17/24 12:55 Anion Gap 17.0 (5-19) 06/17/24 12:55 BUN 44 mg/dL (8-23) H 06/17/24 12:55 Creatinine 2.3 mg/dL (0.7-1.2) H 06/17/24 12:55 GFR Calculation Not Reportable 06/17/24 12:55 Glucose 107 mg/dL (65-115) 06/17/24 12:55 Calculated Osmolality 288 mOsm/kg (285-295) 06/17/24 12:55 Calcium 8.7 mg/dL (8.5-10.5) 06/17/24 12:55 Magnesium 2.4 mg/dL (1.7-2.3) H 06/17/24 12:55 Total Bilirubin 0.5 mg/dL (0.15-1.2) 06/17/24 12:55 AST 16 U/L (0-40) 06/17/24 12:55 ALT 14 U/L (0-41) 06/17/24 12:55 Alkaline Phosphatase 138 U/L (40-130) H 06/17/24 12:55 Troponin T Baseline 81 ng/L (0-15) H 06/17/24 12:55 NT-Pro-B Natriuret Pep 13866 pg/mL (0-450) H 06/17/24 12:55 Total Protein 6.5 g/dL (6.6-8.7) L 06/17/24 12:55 Albumin 3.8 g/dL (3.5-5.2) 06/17/24 12:55 Globulin 2.7 g/dL (1.3-4.6) 06/17/24 12:55 All radiology interpretation(s) finalized by discharge Discharge Plan Discharge Patient Disposition: Admitted As Inpatient Admit Provider: Sreedhar Forrest Clinical Impression: Ischemic cardiomyopathy, Severe mitral regurgitation, CHF (congestive heart failure), Anemia, Dyspnea on minimal exertion, Elevated troponin, S/P TAVR (transcatheter aortic valve replacement), Diuretic-induced hypokalemia, Pulmonary vascular congestion, JOSAFAT (acute kidney injury) Condition: Stable Coding Level of Care Code ED Integrated Logistics Support Manager for Chg Fwd Related Data Home Medications ?Medication ?Instructions ?Recorded ?Confirmed docusate sodium 100 mg capsule 100 mg PO BID Constipat ion 04/05/19 06/17/24 (Colace) ascorbic acid (vitamin C) 1,000 mg 1,000 mg PO DAILY 0 11/06/20 06/17/24 tablet (Vitamin C) aspirin 81 mg tablet,delayed 81 mg PO DAILY 06/03/24 0 06/17/24 release calcium no.26 167 mg-magnesium 1 cap PO DAILY 5 06/17/24 no.15 83 mg-zinc 5 mg capsule cholecalciferol (vitamin D3) 25 25 mcg PO DAILY 06/17/24 mcg (1,000 unit) tablet (Vitamin D3) vitamin B complex 1 tab PO DAILY 06/17/2405/22 Previous Rx's ?Medication ?Instructions ?Recorded ferrous sulfate 325 mg (65 mg 325 mg PO DAILY #30 tabs 01/08/23 iron) tablet atorvastatin 40 mg tablet 40 mg PO DAILY #90 tabs 06/22 12/14 pantoprazole 40 mg tablet,delayed 40 mg PO DAILY #90 t abs 07/30/23 release tamsulosin 0.4 mg capsule 0.4 mg PO DAILY #90 caps 08/13 nitroglycerin 0.4 mg sublingual 0.4 mg sublingual Q5M PRN Chest 12/22/23 tablet (Nitrostat) Pain #25 tabs fexofenadine 60 mg tablet 60 mg PO BID PRN sinus drain age 1203/14/24 #20 tabs potassium chloride 10 mEq 10 meq PO QID #180 tabs 02/21 06/13 tablet,extended release finasteride 5 mg tablet 5 mg PO DAILY #90 tabs 03/21 amiodarone 200 mg tablet 200 mg PO DAILY for rhythm # 90 tabs 05/09/24 clopidogrel 75 mg tablet 75 mg PO DAILY #90 tabs 04/23 10/14 furosemide 40 mg tablet (Lasix) 40 mg PO QDAY PRN [place]ia [place] a #90 tabs 05/09/24 metolazone 2.5 mg tablet 2.5 mg PO DAILY PRN 05/09/24 edema/shortness of breath #90 tabs midodrine 10 mg tablet 10 mg PO TID PRN low blood 0 06/03/24 pressure #30 tabs Allergies Allergy/AdvReac Type Severity Reaction Status Date / Time No Known Allergies Allergy Verified 06/17/24 12:33
[2024-06-17 13:01] LABS: Basophils % 0.8 %; Eosinophils # 0.1 10^3/uL (0.0-0.8); Lymphocytes # 0.3 10^3/uL (0.8-4.8); Lymphocytes % 5.4 %; Mean Corpuscular HGB Conc 32.1 g/dL (30-55); Mean Corpuscular Hemoglobin 29.2 pg (27-33); Mean Corpuscular Volume 90.9 fl (82-101); Mean Platelet Volume 9.9 fL (7.4-10.4); Monocytes # 0.6 10^3/uL (0.2-0.9); Monocytes % 12.1 %; Neutrophils # 4.01 10^3/uL (1.8-7.7); Neutrophils % 79.5 %; Nucleated Red Blood Cells % 0 %; Platelet Count 134 10^3/cmm (157-399); Red Blood Count 3.63 10^6/uL (3.85-5.65); Red Cell Distribution Width 16.4 % (12.1-15.1); White Blood Count 5.04 10^3/uL (3.29-11.43)
[2024-06-17 13:18] LABS: Magnesium 2.4 mg/dL (1.7-2.3)
[2024-06-17 13:20] LABS: Troponin(5th) Baseline 81 ng/L (0-15)
[2024-06-17 13:29] LABS: Alanine Aminotransferase 14 U/L (0-41); Albumin Level 3.8 g/dL (3.5-5.2); Alkaline Phosphatase 138 U/L (40-130); Aspartate Amino Transferase 16 U/L (0-40); Blood Urea Nitrogen 44 mg/dL (8-23); Calcium 8.7 mg/dL (8.5-10.5); Carbon Dioxide 28 mmol/L (22-29); Chloride 91 mmol/L (98-107); Globulin 2.7 g/dL (1.3-4.6); Glucose 107 mg/dL (65-115); NT Pro B Type Natriuretic Pept 13515 pg/mL (0-450); Osmolality Calculated 288 mOsm/kg (285-295); Sodium 133 mmol/L (136-145); Total Bilirubin 0.5 mg/dL (0.15-1.2); Total Protein 6.5 g/dL (6.6-8.7)
[2024-06-17] MEDS: potassium chloride ER 20 mEq Tablet 40 MEQ PO (14:34)
--- NOTE | 2024-06-17 15:01 | ECG_ITS ---
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
--- NOTE | 2024-06-17 15:06 | P.CONIM_ITS ---
<Statement entered by Ceferino Arias M.D - 06/18/24 08:59> Patient was evaluated and cared for in conjunction with an advanced practice practitioner.? I personally examined the patient and reviewed the chart and all pertinent data including imaging, telemetry, and laboratory results.? I discussed the patient in detail with the advanced practice practitioner.? Please see? their note for complete consult note, testing results and agreed upon plan of care for the patient. GENERAL: Patient is alert, awake and oriented x3. HEART: Regular S1 and S2 LUNGS: Diminished air entry bilaterally CENTRAL NERVOUS SYSTEM: Grossly nonfocal. EXTREMITIES: Lower extremities with 1-2+ edema bilaterally Patient is volume overloaded. IV lasix. Close I and Os. Monitor renal function Troponin elevation likely secondary to demand ischemia. Will manage medically at this time Order echocardiogram ICD interrogation. Thank you for involving us with care of this patient. Will continue to follow. Please call with questions. Providers/Reason For Consult 2 Consulting Physician/Specialty*: Dr Arias, cardiology Reason for Consult*: CHF decompensation Requesting Physician: Dr Kang Attending Physician: Sreedhar Forrest MD Primary Care Provider: Cayla Perea MD History of Present Illness History of Present Illness Bivins (Regulo) George Diaz is a 88 year old male with history of CAD, hypertension, aortic stenosis s/p TAVR, mitral regurgitation, AAA s/p repair, [place] AICD implanted 2018 (VVI, lower rate 40bpm), pulmonary hypertension, CKD, TIA. He presented to the emergency room today due to weakness, 10 pound weight gain over the last few days, shortness of breath. He has been taking Lasix 40 mg twice a day and metolazone 2.5mg about every 3-4 days to maintain fluid balance. Initial EKG showing atrial fibrillation with controlled ventricular rate, left bundle branch block. Baseline troponin 81, chronic elevation noted, typically in the 40s to 60s. BNP 13,515-significantly higher than the 1807-4345 range last year. BUN 44, creatinine 2.3-last month BUN 34, creatinine 1.7 He has not had any chest pain with this CHF exacerbation. His abdomen appears distended, he endorses a feeling of constipation with difficulty passing stool. Most recent echocardiogram was August of last year showing normal LV function, dilated left atrium, moderate mitral regurgitation, well-functioning bioprosthetic aortic valve, mild tricuspid regurgitation with moderate pulmonary hypertension. He had a Lexiscan stress test in September of last year while admitted to the hospital showing moderate reversible defect in the RCA territory, minimal nilton- infarct ischemia in the left circumflex territory. No change from the previous study in 2021. At that time he declined coronary angiogram as he was chest pain free. Review of Systems 2 Const: Reports: change in weight Card: Reports: edema, swelling of feet/ankles and dyspnea on exertion; Denies: chest pain, palpitations, irregular heart rhythm, lightheadedness, syncope, pre-syncope, orthopnea or leg pain with exertion Resp: Reports: dyspnea; Denies: productive cough or wheezing GI: Reports: constipation; Denies: hematochezia : Denies: hematuria Luis Alfredo/Lymph: Denies: easy bleeding Medications/Allergies Home Medications ?Medication ?Instructions ?Recorded ?Confirmed ?Last Taken ?Type docusate sodium 100 mg capsule 100 mg PO BID Constipat ion 04/05/19 06/17/24 09/20/23 History (Colace) ascorbic acid (vitamin C) 1,000 mg 1,000 mg PO DAILY 0 11/06/20 06/17/24 06/17/24 History tablet (Vitamin C) ferrous sulfate 325 mg (65 mg 325 mg PO DAILY #30 tabs 01/08/23 06/17/24 06/17/24 Rx iron) tablet atorvastatin 40 mg tablet 40 mg PO DAILY #90 tabs 06/2206/17/24 06/17/24 Rx pantoprazole 40 mg tablet,delayed 40 mg PO DAILY #90 t abs 07/30/23 06/17/24 06/17/24 Rx release tamsulosin 0.4 mg capsule 0.4 mg PO DAILY #90 caps 08/1306/17/24 06/16/24 Rx nitroglycerin 0.4 mg sublingual 0.4 mg sublingual Q5M PRN Chest 12/22/23 06/17/24 Unknown Rx tablet (Nitrostat) Pain #25 tabs fexofenadine 60 mg tablet 60 mg PO BID PRN sinus drain age 1203/14/24 06/17/24 Unknown Rx #20 tabs potassium chloride 10 mEq 10 meq PO QID #180 tabs 02/2106/17/24 06/17/24 Rx tablet,extended release finasteride 5 mg tablet 5 mg PO DAILY #90 tabs 03/2106/17/24 06/17/24 Rx amiodarone 200 mg tablet 200 mg PO DAILY for rhythm # 90 tabs 05/09/24 06/17/24 06/17/24 Rx clopidogrel 75 mg tablet 75 mg PO DAILY #90 tabs 04/2306/17/24 06/17/24 Rx furosemide 40 mg tablet (Lasix) 40 mg PO QDAY PRN maria del carmen a #90 tabs 05/09/24 06/17/24 06/17/24 Rx metolazone 2.5 mg tablet 2.5 mg PO DAILY PRN 05/09/24 06/17/24 06/17/24 Rx edema/shortness of breath #90 tabs aspirin 81 mg tablet,delayed 81 mg PO DAILY 06/03/24 0 06/17/24 06/17/24 History release midodrine 10 mg tablet 10 mg PO TID PRN low blood 0 06/03/24 06/17/24 Unknown Rx pressure #30 tabs calcium no.26 167 mg-magnesium 1 cap PO DAILY 5 06/17/24 06/16/24 History no.15 83 mg-zinc 5 mg capsule cholecalciferol (vitamin D3) 25 25 mcg PO DAILY 06/17/24 06/17/24 History mcg (1,000 unit) tablet (Vitamin D3) vitamin B complex 1 tab PO DAILY 06/17/2405/2206/17/24 History Allergies Allergy/AdvReac Type Severity Reaction Status Date / Time No Known Allergies Allergy Verified 06/17/24 12:33 PFSH Acute 2 PFSH: Medical History (Updated 06/17/24 @ 15:40 by Sreedhar Forrest MD) Positive cardiac stress test Severe mitral regurgitation 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 Aortic stenosis Ventricular tachycardia Status post AICD placement Stage 3 chronic kidney disease 1.7-2.1 baseline creatinine Essential hypertension CHF (congestive heart failure) Echocardiogram 09/13: LVEF 55-60%, mod mitral regurg, mod pulm HTN Hyperlipidemia Anemia iron deficient Hypothyroidism Vitamin B12 deficiency Allergic rhinitis Insomnia ASHD (arteriosclerotic heart disease) Ischemic cardiomyopathy BPH (benign prostatic hyperplasia) Gynecomastia, male Acute kidney injury superimposed on chronic kidney disease Abdominal aortic aneurysm (AAA) 4.3?4.3 approximately 5.04?5.04 distally Peripheral neuropathy History of nonmelanoma skin cancer Claudication of both lower extremities Pulmonary HTN Bradycardia Heart block atrioventricular Prostate cancer SVT (supraventricular tachycardia) Cognitive dysfunction GERD (gastroesophageal reflux disease) TIA (transient ischemic attack) Surgical History Fracture of left hip requiring operative repair S/P TAVR (transcatheter aortic valve replacement) S/P angioplasty with stent Coronary disease status post 3 stents Status post endovascular aneurysm repair (EVAR) S/P implantation of automatic cardioverter/defibrillator (AICD) [employer] 08/07 Family History Father CAD (coronary artery disease) Mother CAD (coronary artery disease) Congestive heart failure (CHF) Brother Parkinson disease Sister Fibromyalgia Other Cancer Social History Smoking and tobacco/nicotine status: never used tobacco/nicotine Alcohol intake: never Substance/Drug Use: never Lives independently: Yes Marital status: / service: No Current occupational status: retired Current gender identity: Male Gillian/Temple: Mandaen Vitals/I&O/Wt Last Vital Signs Temp 97.8 F 06/17/24 12:22 Pulse 60 06/17/24 14:35 Resp 24 H 06/17/24 14:35 BP 125/67 06/17/24 14:35 Pulse Ox 95 06/17/24 14:35 O2 Del Method Room Air 06/17/24 12:22 Weight last 48 hrs Weight 188 lb 9.6 oz Physical Exam 2 Const: COMMON NORMALS: no acute distress and patient oriented x3 Chest: COMMONS NORMALS: normal inspection of the chest and normal palpation of entire chest wall CHEST: Yes Symmetrical chest wall rise Resp: COMMON NORMALS: normal respiratory effort, No retractions and No use of accessory muscles EFFORT & INSPECTION: Yes symmetric chest movement A USCULTATION: crackles Cardio: COMMON NORMALS: S1 normal heart sound present, S2 normal heart sound present, No gallops present (Cardio), No clicks present (Cardio) and No rub (Cardio) RHYTHM: abnormal rhythm irregularly irregular HEART SOUNDS: S1 normal heart sound present, S2 normal heart sound present and Murmur heart sound present systolic Location: left sternal border and right sternal border Intensity: IV/ PERIPHERAL PULSES: radial pulses present, posterior tibial pulses present and dorsalis pedis present GI: INSPECTION: Yes abdominal distension Extremity: GENERAL: Yes edema (mild LE edema bilat) Neuro: COMMON NORMALS: patient oriented x3 and moves all extremities Psych: COMMON NORMALS: mental status grossly normal and cooperative Data 06/17/24 12:55 06/17/24 12:55 A&P Assessment and plan (1) CHF (congestive heart failure): Qualifiers: Heart failure chronicity: chronic Heart failure type: systolic Q ualified Code(s): I50.22 - Chronic systolic (congestive) heart failure (2) S/P TAVR (transcatheter aortic valve replacement): (3) Positive cardiac stress test: (4) Elevated troponin: (5) ICD (implantable cardioverter-defibrillator), single, in situ: (6) Ischemic cardiomyopathy: Plan He appears volume overloaded. Since it has been over 6 months since his last echocardiogram will need to repeat the study. Chest pain free currently, history of abnormal stress test previously medically managed. Will request ICD interrogation. He is being admitted to the hospital for IV diuresis. Currently not requiring oxygen, breathing is not labored at rest, blood pressure is running in the 110- 120 systolic range. Continue amiodarone 200mg daily, aspirin, statin, Plavix. PDMP PDMP Reviewed: Not Reviewed Coding Level of Care Code Acute Code for [facility] Fwd Diagnoses Acute on chronic diastolic congestive heart failure I50.22 Heart failure chronicity: chronic Heart failure type: systolic S/P TAVR (transcatheter aortic valve replacement) Z95.2 Positive cardiac stress test R94.39 Elevated troponin R79.89 ICD (implantable cardioverter-defibrillator), single, in situ Z95.810 Ischemic cardiomyopathy I25.5
[2024-06-17 15:27] LABS: Troponin 5 2HR 73.29 ng/L (0-15)
[2024-06-17 15:32] LABS: Troponin 5 2HR Delta -7.71 ABS# (0-10)
--- NOTE | 2024-06-17 15:36 | P.HP_ITS ---
Providers/Chief Complaint 2 Admitting Physician: Sreedhar Forrest MD Primary Care Provider: Cayla Perea MD Chief Complaint: weakness/low bp History of Present Illness Roland (Ant George Diaz is a 88 year old male with a past medical history of CAD, history of aortic valve replacement, abdominal aortic aneurysm repair, systolic diastolic CHF, CKD stage III, hyperlipidemia, anemia, hypothyroidism, BPH, SVT, GERD, who presents to [facility] for increased lower extremity edema, shortness of breath, weight gain, low blood pressure. Currently patient alert oriented x 3, following all commands, reports increased shortness of breath with exertion, weight gain more than 10 pounds, low blood pressures, fatigue, malaise, denies any recent falls denies any chest discomfort Review of Systems 2 Const: Denies: fever(s) Card: Denies: chest pain Resp: Reports: dyspnea : Denies: flank pain Medications/Allergies Home Medications ?Medication ?Instructions ?Recorded ?Confirmed ?Last Taken ?Type docusate sodium 100 mg capsule 100 mg PO BID Constipat ion 04/05/19 06/17/24 09/20/23 History (Colace) ascorbic acid (vitamin C) 1,000 mg 1,000 mg PO DAILY 0 11/06/20 06/17/24 06/17/24 History tablet (Vitamin C) ferrous sulfate 325 mg (65 mg 325 mg PO DAILY #30 tabs 01/08/23 06/17/24 06/17/24 Rx iron) tablet atorvastatin 40 mg tablet 40 mg PO DAILY #90 tabs 04/2 12/1406/17/24 06/17/24 Rx pantoprazole 40 mg tablet,delayed 40 mg PO DAILY #90 t abs 07/30/23 06/17/24 06/17/24 Rx release tamsulosin 0.4 mg capsule 0.4 mg PO DAILY #90 caps 08/1306/17/24 06/16/24 Rx nitroglycerin 0.4 mg sublingual 0.4 mg sublingual Q5M PRN Chest 12/22/23 06/17/24 Unknown Rx tablet (Nitrostat) Pain #25 tabs fexofenadine 60 mg tablet 60 mg PO BID PRN sinus drain age 1203/14/24 06/17/24 Unknown Rx #20 tabs potassium chloride 10 mEq 10 meq PO QID #180 tabs 02/2106/17/24 06/17/24 Rx tablet,extended release finasteride 5 mg tablet 5 mg PO DAILY #90 tabs 03/2106/17/24 06/17/24 Rx amiodarone 200 mg tablet 200 mg PO DAILY for rhythm # 90 tabs 05/09/24 06/17/24 06/17/24 Rx clopidogrel 75 mg tablet 75 mg PO DAILY #90 tabs 04/2306/17/24 06/17/24 Rx furosemide 40 mg tablet (Lasix) 40 mg PO QDAY PRN maria del carmen a #90 tabs 05/09/24 06/17/24 06/17/24 Rx metolazone 2.5 mg tablet 2.5 mg PO DAILY PRN 05/09/24 06/17/24 06/17/24 Rx edema/shortness of breath #90 tabs aspirin 81 mg tablet,delayed 81 mg PO DAILY 06/03/24 0 06/17/24 06/17/24 History release midodrine 10 mg tablet 10 mg PO TID PRN low blood 0 06/03/24 06/17/24 Unknown Rx pressure #30 tabs calcium no.26 167 mg-magnesium 1 cap PO DAILY 5 06/17/24 06/16/24 History no.15 83 mg-zinc 5 mg capsule cholecalciferol (vitamin D3) 25 25 mcg PO DAILY 06/17/24 06/17/24 History mcg (1,000 unit) tablet (Vitamin D3) vitamin B complex 1 tab PO DAILY 06/17/2405/2206/17/24 History Allergies Allergy/AdvReac Type Severity Reaction Status Date / Time No Known Allergies Allergy Verified 06/17/24 12:33 PFSH Acute 2 PFSH: Medical History Positive cardiac stress test Severe mitral regurgitation 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 Aortic stenosis Ventricular tachycardia Status post AICD placement Stage 3 chronic kidney disease 1.7-2.1 baseline creatinine Essential hypertension CHF (congestive heart failure) Echocardiogram 09/13: LVEF 55-60%, mod mitral regurg, mod pulm HTN Hyperlipidemia Anemia iron deficient Hypothyroidism Vitamin B12 deficiency Allergic rhinitis Insomnia ASHD (arteriosclerotic heart disease) Ischemic cardiomyopathy BPH (benign prostatic hyperplasia) Gynecomastia, male Acute kidney injury superimposed on chronic kidney disease Abdominal aortic aneurysm (AAA) 4.3?4.3 approximately 5.04?5.04 distally Peripheral neuropathy History of nonmelanoma skin cancer Claudication of both lower extremities Pulmonary HTN Bradycardia Heart block atrioventricular Prostate cancer SVT (supraventricular tachycardia) Cognitive dysfunction GERD (gastroesophageal reflux disease) TIA (transient ischemic attack) Surgical History Fracture of left hip requiring operative repair S/P TAVR (transcatheter aortic valve replacement) S/P angioplasty with stent Coronary disease status post 3 stents Status post endovascular aneurysm repair (EVAR) S/P implantation of automatic cardioverter/defibrillator (AICD) [employer] 08/07 Family History Father CAD (coronary artery disease) Mother CAD (coronary artery disease) Congestive heart failure (CHF) Brother Parkinson disease Sister Fibromyalgia Other Cancer Social History Smoking and tobacco/nicotine status: never used tobacco/nicotine Alcohol intake: never Substance/Drug Use: never Lives independently: Yes Marital status: / service: No Current occupational status: retired Current gender identity: Male Gillian/Gnosticist: Lutheran Vitals/I&O/Wt Last Vital Signs Temp 97.8 F 06/17/24 12:22 Pulse 60 06/17/24 14:35 Resp 24 H 06/17/24 14:35 BP 125/67 06/17/24 14:35 Pulse Ox 95 06/17/24 14:35 O2 Del Method Room Air 06/17/24 12:22 Weight last 48 hrs Weight 85.548 kg Physical Exam 2 Const: COMMON NORMALS: no acute distress and patient oriented x3 Eye: COMMON NORMALS: Equal, round and reactive pupils present and EOMs intact bilaterally Resp: COMMON NORMALS: normal respiratory effort, No retractions, No use of accessory muscles and clear to auscultation bilaterally AUSCULTATION: c rackles and wheezes Cardio: COMMON NORMALS: no JVD, regular rate, regular rhythm, S1 normal heart sound present and S2 normal heart sound present RATE: regular rate RHYTHM: regular rhythm HEART SOUNDS: S1 normal heart sound present and S2 normal heart sound present GI: OTHER: Abdomen soft, distended, good bowel sounds, no guarding, no rebound, rigidity Extremity: NARRATIVE EXTREMITY EXAM: 1+ edema, anasarca Neuro: COMMON NORMALS: patient oriented x3, CN's II-XII intact bilaterally and moves all extremities Psych: COMMON NORMALS: mental status grossly normal Data 06/17/24 12:55 06/17/24 12:55 A&P Assessment and plan (1) Acute exacerbation of CHF (congestive heart failure): Qualifiers: Heart failure type: combined systolic and diastolic Qualified Code(s): I50.43 - Acute on chronic combined systolic (congestive) and diastolic (congestive) heart failure (2) JOSAFAT (acute kidney injury): (3) Cardiorenal syndrome: (4) NSTEMI (non-ST elevated myocardial infarction): Plan Acute CHF exacerbation -BNP over 13,000 -Evidence of pulm edema, shortness of breath, 1+ edema -With concerns for soft blood pressures Plan -Resume his midodrine 10 3 times daily -Lasix 40 IV every 8 hours -Monitor creatinine, monitor urine output -Monitor and replace potassium -Place Zhong catheter -Cardiac echo -Full code -Lovenox for DVT prophylaxis Acute kidney injury -Likely cardiorenal syndrome -Obtain UA -Renal ultrasound -Monitor urine output, monitor creatinine NSTEMI, -Serial EKGs, serial troponins, telemetry monitoring History of TAVR History of BPH PDMP PDMP Reviewed: Not Reviewed Attestations 2 Medical Necessity Statement*: Patient requires hospitalization, inpatient, greater than 2 midnights for acute CHF exacerbation, JOSAFAT, cardiorenal syndrome, NSTEMI Diagnoses Acute on chronic combined systolic and diastolic congestive heart failure I50.43 Heart failure type: combined systolic and diastolic JOSAFAT (acute kidney injury) N17.9 Cardiorenal syndrome I13.10 NSTEMI (non-ST elevated myocardial infarction) I21.4
[2024-06-17 18:00] LABS: Estmated Average Glucose 120; Hemoglobin A1C 5.8 % (4.0-6.0)
[2024-06-17 18:09] LABS: Chol HDL Ratio 2.68 mg/dL (1.0-5.00); Cholesterol 126 mg/dL (0-200); HDL Cholesterol 47 mg/dL (60-100); LDL Cholesterol Calculated 65 mg/dL (50-129); LDL HDL Ratio 1.38 RATIO (0.00-3.22); Thyroid Stimulating Hormone 1.37 uIU/mL (0.27-4.20); Triglycerides 69 mg/dL (0-150)
--- NOTE | 2024-06-17 18:27 | ECG_ITS ---
[facility] Test Date: 2024-06-17 Pat Name: Roland Diaz (Leroy) Department: Room: 103 Gender: Male Corrections Identification Technician: : 1935 Requested By: Félix Kang Order Number: [id number] Reading MD: JACE BRIDGES Measurements Intervals [place] Rate: 61 P: 0 NE: 0 QRS: 134 QRSD: 145 T: -3 QT: 496 QTc: 500 Interpretive Statements ATRIAL FIBRILLATION INTRAVENTRICULAR CONDUCTION DELAY [130+ ms QRS DURATION] POSSIBLE INFERIOR MYOCARDIAL INFARCTION , PROBABLY OLD [30 ms Q WAVE IN II/aVF] Compared to ECG 06/17/2024 15:01:21 Myocardial infarct finding now present Electronically Signed On 06-26-2024 21:46:21 CDT by JACE BRIDGES [email or web address]
[2024-06-17 19:21] LABS: Troponin 5 6HR 69.93 ng/L (0-15)
[2024-06-17] MEDS: FUROsemide 10 mg/mL SDV 4mL 40 MG IVP (19:50)
[2024-06-17] MEDS: enoxaparin 40 mg/0.4 mL Syringe SUBCUT (19:51)
[2024-06-17] MEDS: potassium chloride ER 10 mEq Tablet 20 MEQ PO (19:52)
[2024-06-17] MEDS: sennosides-docusate Tablet 1 TAB PO (19:52)
[2024-06-17] MEDS: polyethylene glycol 3350 Pkt 17 gm PO (19:53)
[2024-06-17] MEDS: lidocaine 1% 5 ML in potassium chloride premix 100 ML 52.5 ML IV (19:56)
[2024-06-18] VITALS (10 sets, daily range): BP systolic 104–125; BP diastolic 55–74; PULSE 53–82; RESP 13–29; TEMP 36.6–36.9; O2SAT 92–98
[2024-06-18] MEDS: acetaminophen 325 mg Tablet 650 MG PO (01:28)
[2024-06-18] MEDS: midodrine 5 mg TABLET 10 MG PO ×3 (01:29→17:09)
[2024-06-18] MEDS: FUROsemide 10 mg/mL SDV 4mL 40 MG IVP ×3 (01:29→17:09)
[2024-06-18 02:07] LABS: Add Urine Microscopic? NO
[2024-06-18 02:13] LABS: Bilirubin Urine Neg (Negative); Blood Urine Neg (Negative); Glucose Urine UA Norm (Normal); Ketones Urine Negative (Negative); Leukocyte Esterase Urine Negative (Negative); Nitrate Urine Negative (Negative); Protein Urine Neg (Negative); Specific Gravity, Urine 1.005 (1.005-1.030); Urine Appearance Clear (CLEAR); Urine Color Yellow (Yellow); Urobilinogen Urine Norm (Negative); pH Urine 6.5 (5-7)
[2024-06-18 02:14] LABS: Charge for UA Resulting for Rev
[2024-06-18 03:18] LABS: Basophils % 0.9 %; Eosinophils # 0.2 10^3/uL (0.0-0.8); Eosinophils % 3.7 %; Hematocrit 32.7 % (37-53); Lymphocytes # 0.3 10^3/uL (0.8-4.8); Lymphocytes % 7.3 %; Mean Corpuscular HGB Conc 31.8 g/dL (30-55); Mean Corpuscular Hemoglobin 29.4 pg (27-33); Mean Corpuscular Volume 92.4 fl (82-101); Mean Platelet Volume 10.1 fL (7.4-10.4); Monocytes # 0.8 10^3/uL (0.2-0.9); Monocytes % 17.2 %; Neutrophils # 3.07 10^3/uL (1.8-7.7); Neutrophils % 70.4 %; Nucleated Red Blood Cells % 0 %; Platelet Count 127 10^3/cmm (157-399); Red Blood Count 3.54 10^6/uL (3.85-5.65); Red Cell Distribution Width 16.3 % (12.1-15.1); White Blood Count 4.36 10^3/uL (3.29-11.43)
[2024-06-18 03:37] LABS: Alanine Aminotransferase 13 U/L (0-41); Albumin Level 3.5 g/dL (3.5-5.2); Alkaline Phosphatase 128 U/L (40-130); Anion Gap 17.1 (5-19); Aspartate Amino Transferase 15 U/L (0-40); Blood Urea Nitrogen 43 mg/dL (8-23); Calcium 8.5 mg/dL (8.5-10.5); Carbon Dioxide 26 mmol/L (22-29); Chloride 95 mmol/L (98-107); Globulin 2.8 g/dL (1.3-4.6); Glucose 115 mg/dL (65-115); Magnesium 2.4 mg/dL (1.7-2.3); Osmolality Calculated 292 mOsm/kg (285-295); Phosphorus 3.7 mg/dL (2.5-4.5); Potassium 3.1 mmol/L (3.5-5.1); Sodium 135 mmol/L (136-145); Total Bilirubin 0.3 mg/dL (0.15-1.2); Total Protein 6.3 g/dL (6.6-8.7)
[2024-06-18 03:49] LABS: NT Pro B Type Natriuretic Pept 12707 pg/mL (0-450)
[2024-06-18] MEDS: potassium chloride ER 10 mEq Tablet 20 MEQ PO ×2 (08:43→17:09)
[2024-06-18] MEDS: clopidogrel 75 mg Tablet PO (08:43)
[2024-06-18] MEDS: finasteride 5 mg Tablet PO (08:43)
[2024-06-18] MEDS: atorvastatin 40 mg Tablet PO (08:43)
[2024-06-18] MEDS: sennosides-docusate Tablet 1 TAB PO ×2 (08:43→17:09)
[2024-06-18] MEDS: tamsulosin 0.4 mg Capsule PO (08:43)
[2024-06-18] MEDS: pantoprazole DR 40 mg Tablet PO (08:43)
[2024-06-18] MEDS: aspirin 81 mg EC Tablet PO (08:43)
[2024-06-18] MEDS: amiodarone 200 mg Tablet PO (08:43)
[2024-06-18] MEDS: potassium chloride ER 20 mEq Tablet 40 MEQ PO (09:16)
--- NOTE | 2024-06-18 10:32 | P.PN_ITS ---
Subjective 2 Subjective: Patient feeling better. Has diuresed well. Kidney function is stable Vitals/I&O/Wt Last Vital Signs Temp 97.9 F 06/18/24 07:17 Pulse 53 L 06/18/24 07:27 Resp 16 06/18/24 07:27 BP 104/56 06/18/24 07:17 Pulse Ox 94 06/18/24 07:28 O2 Del Method Nasal Cannula 06/18/24 07:28 O2 Flow Rate 2 06/18/24 07:28 06/17/24 06/18/24 06/18/24 22:59 06:59 14:59 Intake Total 103.5 / 103.5 201.5 / 305.0 120 / 120 Output Total 350 / 350 900 / 1250 300 / 300 Balance -246.5 / -246.5 -698.5 / -945.0 -180 / -180 Weight last 48 hrs Weight 192 lb 8 oz Weight 188 lb 9.6 oz Physical Exam 2 Narrative: GENERAL: Patient is alert, awake and oriented x3. [] NECK: No jugular vein distension. [] HEENT: No cyanosis. No icterus. No pallor. [] HEART: Regular S1 and S2. No murmur, rub or gallop. [] LUNGS: Clear to auscultate bilaterally. [] CENTRAL NERVOUS SYSTEM: Grossly nonfocal. [] EXTREMITIES: Lower extremities with 1+ edema bilaterally. Data 06/19/24 03:08 06/19/24 03:08 A&P Assessment and plan (1) CHF (congestive heart failure): Qualifiers: Heart failure chronicity: chronic Heart failure type: systolic Q ualified Code(s): I50.22 - Chronic systolic (congestive) heart failure (2) S/P TAVR (transcatheter aortic valve replacement): (3) Positive cardiac stress test: (4) Elevated troponin: (5) ICD (implantable cardioverter-defibrillator), single, in situ: (6) Ischemic cardiomyopathy: Plan Patient is diuresing well. Continue IV Lasix. Monitor renal function. Close I&O's. Echo shows normal LV systolic function. Normal functioning prosthetic aortic valve. Has severe mitral regurgitation. If has recurrent CHF exacerbation episodes, we will be appropriate to consider for MitraClip. Low sodium diet and fluid restriction Thank you for involving us with care of this patient. Please call with questions PDMP PDMP Reviewed: Not Reviewed Attestations 2 Medical Necessity Statement*: Care expected to cross 2 midnights. Coding Level of Care Code Acute Code for [facility] Fwd Diagnoses Acute on chronic diastolic congestive heart failure I50.22 Heart failure chronicity: chronic Heart failure type: systolic S/P TAVR (transcatheter aortic valve replacement) Z95.2 Positive cardiac stress test R94.39 Elevated troponin R79.89 ICD (implantable cardioverter-defibrillator), single, in situ Z95.810 Ischemic cardiomyopathy I25.5
--- NOTE | 2024-06-18 11:32 | PC.CHAP ---
Pastoral Care Encounter/Spiritual Assessment Type of Contact [] Declined brand protection manager visit [] Patient/Family/Request visit [] Outpatient visit [] Follow-up visit [] Physician referral [] Code/Alert [] Routine visit [] Staff referral [] Actively dying [x] Patient sleeping [] Family support [] [] Out of room [] Palliative care [] [] Receiving care in room [] Pre-surgical visit [] Trauma [] Long length of stay [] ICU visit [] Other: Relational/Emotional Strength [] Patient feels connected with others/family/visitors/staff [] Distress [] Loneliness/isolation [] Abandonment Spirituality of Patient [] Person of Gillian [] Attends Holiness of their Gillian [] Believes in Prayer [] Reads Bible or Yazdanism materials [] There are Spiritual issues to be addressed Hospital Insurance Representative Interventions [] Prayer [] Active listening [] Non-anxious presence [] Spiritual/emotional support [] Crisis/trauma care [] Spiritual counseling [] Bereavement support [] Provided bereavement packet [] Provided Bible/devotional materials [] Provided toy/stuffed animal, coloring book to patient or family member [] Provided Communion [] Anointing/[place] [] Salvation [] Completed spiritual assessment [] Other: Impact on Illness or Injury [] Angry [] Fearful [] Anxious [] Often cries [] Exhaustion [] Unable to work [] Unable to attend scientology [] Unable to walk/stand [] Unable to read [] Unable to drive [] Unable to eat/drink [] Unable to sleep [] Unable to be with family [] Patient intubated [] Other: Summary Time spent with patient
--- NOTE | 2024-06-18 13:24 | P.PN_ITS ---
Subjective 2 Subjective: Patient was seen this morning, denies any fevers, no chills, no nausea, no vomiting, he tells me his swelling is improving Vitals/I&O/Wt Last Vital Signs Temp 97.9 F 06/18/24 11:18 Pulse 65 06/18/24 11:18 Resp 17 06/18/24 11:18 BP 108/71 06/18/24 11:18 Pulse Ox 97 06/18/24 11:18 O2 Del Method Nasal Cannula 06/18/24 11:18 O2 Flow Rate 2 06/18/24 07:28 06/17/24 06/18/24 06/18/24 22:59 06:59 14:59 Intake Total 103.5 / 103.5 201.5 / 305.0 120 / 120 Output Total 350 / 350 900 / 1250 300 / 300 Balance -246.5 / -246.5 -698.5 / -945.0 -180 / -180 Weight last 48 hrs Weight 87.317 kg Weight 85.548 kg Physical Exam 2 Const: COMMON NORMALS: no acute distress and patient oriented x3 Resp: COMMON NORMALS: normal respiratory effort, No retractions and No use of accessory muscles AUSCULTATION: crackles and wheezes Cardio: COMMON NORMALS: regular rate, regular rhythm, S1 normal heart sound present and S2 normal heart sound present RATE: regular rate RHYTHM: r egular rhythm HEART SOUNDS: S1 normal heart sound present and S2 normal heart sound present GI: COMMON NORMALS: Normal to inspection, nondistended, normoactive bowel sounds present and non-tender Extremity: COMMON NORMALS: no pedal edema Neuro: COMMON NORMALS: patient oriented x3 Psych: COMMON NORMALS: mental status grossly normal Data 06/18/24 02:27 06/18/24 02:27 A&P Assessment and plan (1) Acute exacerbation of CHF (congestive heart failure): Qualifiers: Heart failure type: combined systolic and diastolic Qualified Code(s): I50.43 - Acute on chronic combined systolic (congestive) and diastolic (congestive) heart failure (2) JOSAFAT (acute kidney injury): (3) Cardiorenal syndrome: (4) NSTEMI (non-ST elevated myocardial infarction): Plan Acute CHF exacerbation -BNP over 13,000 -Evidence of pulm edema, shortness of breath, 1+ edema -With concerns for soft blood pressures -As diuresed over a liter overnight Plan -Resume his midodrine 10 3 times daily -Lasix 40 IV every 8 hours -Monitor creatinine, monitor urine output -Monitor and replace potassium -Place Zhong catheter -Cardiac echo CONCLUSIONS LV systolic function is normal with EF of 55-60% Biatrial dilation Severe mitral regurgitation. Mild mitral stenosis Moderate tricuspid regurgitation. Severe pulmonary hypertension IVC appears to be dilated -Full code -Lovenox for DVT prophylaxis Severe mitral valve regurg, potentially playing a role in terms of patient's shortness of breath Acute kidney injury -Likely cardiorenal syndrome -Renal ultrasound, shows atrophic right kidney -Monitor urine output, monitor creatinine NSTEMI, -Serial EKGs, serial troponins, telemetry monitoring History of TAVR History of BPH PDMP PDMP Reviewed: Not Reviewed Attestations 2 Medical Necessity Statement*: Patient requires hospitalization for acute CHF exacerbation requiring IV diuresis Diagnoses Acute on chronic combined systolic and diastolic congestive heart failure I50.43 Heart failure type: combined systolic and diastolic JOSAFAT (acute kidney injury) N17.9 Cardiorenal syndrome I13.10 NSTEMI (non-ST elevated myocardial infarction) I21.4
--- NOTE | 2024-06-18 17:41 | USR_ITS ---
PROCEDURE INFORMATION: Exam: US Retroperitoneal, Complete, Kidneys and Bladder Exam date and time: 06/18/2024 8:46 AM Age: 88 years old Clinical indication: Condition or disease; Kidney or ureter condition; Other: Guy TECHNIQUE: Imaging protocol: Real-time ultrasound of the retroperitoneum with image documentation. Complete exam focused on the bilateral kidneys and urinary bladder. COMPARISON: CT abdomen pelvis con [id number] 09/20/2023 9:42 AM FINDINGS: Right kidney: The right kidney measures 7.7 cm in length and demonstrates a severely atrophic parenchyma. No hydronephrosis or mass. 2 cm simple cyst noted. Left kidney: The left kidney measures 10 cm in length and demonstrates a normal parenchymal thickness and echo pattern. No hydronephrosis or mass. Urinary bladder: Unremarkable. Prostate: The bladder demonstrates prostate enlargement. US/US renal BI* [id number] IMPRESSION: 1. Severely atrophic right kidney 2. Prostate enlargement
--- NOTE | 2024-06-18 17:41 | USCV_ITS ---
Roland Diaz ([place]) Age: 88 Gender: M : 1935 Exam Date: 06/18/2024 08:00 Ordering Phys: Sreedhar Forrest MD Technologist: Teddy Martinez [place] [facility] [place]: sob BP: 104 / 56 HR: 56 Rhythm: Sinus Technical Quality: Adequate MEASUREMENTS (Male / Female) Normal Values 2D ECHO LV Diastolic Diameter PLAX 5.1 cm 4.2 - 5.9 / 3.9 - 5.3 cm IVS Diastolic Thickness 1.4 cm 0.6 - 1.0 / 0.6 - 0.9 cm IVS Systolic Thickness 1.5 cm LVPW Diastolic Thickness 1.6 cm 0.6 - 1.0 / 0.6 - 0.9 cm LVPW Systolic Thickness 2.0 cm LVOT Diameter 2.0 cm LV Ejection Fraction 2D Teich 71.8 % LV Ejection Fraction MOD 4C 54.2 % LV Ejection Fraction MOD 2C 66.6 % LV Ejection Fraction 2C AL 67.6 % LA Diameter 5.6 cm RA Systolic Volume 4C AL 84.9 ml RA Systolic Volume 4C MOD 84.8 ml LA Sys Volume AL 154.6 cm cubed LA Sys Volume Index AL 73.6 cm cubed/m squared Aorta at Sinotubular Diameter 2.1 cm IVC Diameter 2.1 cm M-MODE LA Ao Ratio MM 2.1 AV Cusp Separation MM 1.5 cm DOPPLER AV Peak Velocity 169.0 cm/s LVOT Peak Velocity 65.0 cm/s AV Area Cont Eq vti 1.5 cm squared AV Area Cont Eq pk 1.3 cm squared MV Peak Velocity 190.0 cm/s MV Area PHT 5.0 cm squared Mitral E to A Ratio 2.3 TV Peak Velocity 347.0 cm/s TR Peak Velocity 388.0 cm/s TR Peak Gradient 60.2 mmHg TR Mean Velocity 307.0 cm/s TR Mean Gradient 39.9 mmHg TR Velocity Time Integral 119.7 cm PV Peak Velocity 66.0 cm/s RV Ejection Time 0.3 s FINDINGS Left Ventricle Left ventricle is normal in size. LV systolic function is normal with EF of 55-60'%. No regional wall motion abnormalities. Right Ventricle Normal in size and function Right Atrium Dilated Left Atrium Severely dilated Mitral Valve Moderate to severe mitral annular calcification. Severe mitral regurgitation. Mild mitral stenosis with mean gradient across mitral valve of 4.31mmHg. Aortic Valve Bioprosthetic aortic valve. No significant stenosis or regurgitation. Tricuspid Valve Moderate tricuspid regurgitation. RVSP is >60mmHg. This is consistent with severe pulmonary hypertension. Pulmonic Valve Not well visualized Pericardium Normal Aorta Normal in size IVC Appears to be dilated CONCLUSIONS LV systolic function is normal with EF of 55-60% Biatrial dilation Severe mitral regurgitation. Mild mitral stenosis Moderate tricuspid regurgitation. Severe pulmonary hypertension IVC appears to be dilated Ceferino Arias MD (Electronically Signed) Final Date: 18 June 2024 13:20 S
[2024-06-19] VITALS (8 sets, daily range): BP systolic 107–126; BP diastolic 53–90; PULSE 64–94; RESP 15–31; TEMP 36.7–36.9; O2SAT 91–99
[2024-06-19] MEDS: FUROsemide 10 mg/mL SDV 4mL 40 MG IVP ×2 (02:21→08:30)
[2024-06-19] MEDS: midodrine 5 mg TABLET 10 MG PO ×3 (02:21→17:53)
[2024-06-19 03:53] LABS: Basophils # 0.1 10^3/uL (0.0-0.1); Basophils % 0.9 %; Eosinophils # 0.2 10^3/uL (0.0-0.8); Eosinophils % 3.1 %; Hematocrit 34.1 % (37-53); Lymphocytes # 0.4 10^3/uL (0.8-4.8); Lymphocytes % 7.9 %; Mean Corpuscular HGB Conc 31.4 g/dL (30-55); Mean Corpuscular Hemoglobin 29.2 pg (27-33); Mean Corpuscular Volume 92.9 fl (82-101); Mean Platelet Volume 10.2 fL (7.4-10.4); Monocytes # 0.7 10^3/uL (0.2-0.9); Monocytes % 12.9 %; Neutrophils # 4.06 10^3/uL (1.8-7.7); Neutrophils % 74.8 %; Nucleated Red Blood Cells % 0 %; Platelet Count 135 10^3/cmm (157-399); Red Blood Count 3.67 10^6/uL (3.85-5.65); Red Cell Distribution Width 16.8 % (12.1-15.1); White Blood Count 5.43 10^3/uL (3.29-11.43)
[2024-06-19 04:22] LABS: Alanine Aminotransferase 12 U/L (0-41); Albumin Level 3.9 g/dL (3.5-5.2); Alkaline Phosphatase 133 U/L (40-130); Anion Gap 16.4 (5-19); Aspartate Amino Transferase 14 U/L (0-40); Blood Urea Nitrogen 44 mg/dL (8-23); Calcium 8.7 mg/dL (8.5-10.5); Carbon Dioxide 28 mmol/L (22-29); Chloride 98 mmol/L (98-107); Globulin 2.7 g/dL (1.3-4.6); Glucose 105 mg/dL (65-115); Magnesium 2.4 mg/dL (1.7-2.3); Osmolality Calculated 300 mOsm/kg (285-295); Phosphorus 3.9 mg/dL (2.5-4.5); Potassium 3.4 mmol/L (3.5-5.1); Sodium 139 mmol/L (136-145); Total Bilirubin 0.4 mg/dL (0.15-1.2); Total Protein 6.6 g/dL (6.6-8.7)
[2024-06-19 04:32] LABS: NT Pro B Type Natriuretic Pept 12145 pg/mL (0-450)
[2024-06-19] MEDS: atorvastatin 40 mg Tablet PO (08:30)
[2024-06-19] MEDS: pantoprazole DR 40 mg Tablet PO (08:30)
[2024-06-19] MEDS: finasteride 5 mg Tablet PO (08:31)
[2024-06-19] MEDS: tamsulosin 0.4 mg Capsule PO (08:31)
[2024-06-19] MEDS: aspirin 81 mg EC Tablet PO (08:31)
[2024-06-19] MEDS: potassium chloride ER 10 mEq Tablet 20 MEQ PO ×2 (08:31→17:53)
[2024-06-19] MEDS: clopidogrel 75 mg Tablet PO (08:31)
[2024-06-19] MEDS: amiodarone 200 mg Tablet PO (08:31)
--- NOTE | 2024-06-19 09:56 | P.PN_ITS ---
Subjective 2 Subjective: Patient has been diuresing. Renal function is stable. Vitals/I&O/Wt Last Vital Signs Temp 98.0 F 06/19/24 08:00 Pulse 70 06/19/24 08:00 Resp 15 06/19/24 08:00 BP 107/68 06/19/24 08:00 Pulse Ox 95 06/19/24 07:30 O2 Del Method Nasal Cannula 06/19/24 07:30 O2 Flow Rate 2 06/18/24 07:28 06/18/24 06/19/24 06/19/24 22:59 06:59 14:59 Intake Total 1011 / 1491 240 / 240 Output Total 475 / 1175 300 / 1475 Balance 536 / 316 -300 / 16 240 / 240 Weight last 48 hrs Weight 192 lb 8 oz Weight 188 lb 9.6 oz Physical Exam 2 Narrative: GENERAL: Patient is alert, awake and oriented x3. [] NECK: No jugular vein distension. [] HEENT: No cyanosis. No icterus. No pallor. [] HEART: Regular S1 and S2. Grade 4/6 systolic murmur LUNGS: Clear to auscultate bilaterally. [] CENTRAL NERVOUS SYSTEM: Grossly nonfocal. [] EXTREMITIES: Lower extremities with 1+ edema bilaterally. Data 06/20/24 02:05 06/20/24 02:05 A&P Assessment and plan (1) CHF (congestive heart failure): Qualifiers: Heart failure chronicity: chronic Heart failure type: systolic Q ualified Code(s): I50.22 - Chronic systolic (congestive) heart failure (2) S/P TAVR (transcatheter aortic valve replacement): (3) Positive cardiac stress test: (4) Elevated troponin: (5) ICD (implantable cardioverter-defibrillator), single, in situ: (6) Ischemic cardiomyopathy: Plan Continue IV diuresis. Monitor renal function. Close I&O's. I had a discussion with him regarding severe mitral regurgitation. Per patient this was normal in the past however was decided to have medical therapy. If has recurrent admissions with volume overload, we will recommend referring to structural heart team. He wants to go to [facility] in that situation. At this time medical therapy is appropriate. Thank you for involving us with care of this patient. Please call with questions PDMP PDMP Reviewed: Not Reviewed Attestations 2 Medical Necessity Statement*: Care expected to cross 2 midnights. Coding Level of Care Code Acute Code for [facility] Fwd Diagnoses Acute on chronic diastolic congestive heart failure I50.22 Heart failure chronicity: chronic Heart failure type: systolic S/P TAVR (transcatheter aortic valve replacement) Z95.2 Positive cardiac stress test R94.39 Elevated troponin R79.89 ICD (implantable cardioverter-defibrillator), single, in situ Z95.810 Ischemic cardiomyopathy I25.5
[2024-06-19] MEDS: metOLazone 5 MG Tablet PO (10:00)
--- NOTE | 2024-06-19 11:48 | P.PN_ITS ---
Subjective 2 Subjective: Patient was seen this morning, denies any fevers, no chills, no cough, he was able to ambulate to the bathroom, we did report that he had good urine output yesterday, however he did take an approximately how much he urinated out, we discussed fluid restrictions, he is hesitant about this, he tells me that he is gained 10 pounds, Vitals/I&O/Wt Last Vital Signs Temp 98.0 F 06/19/24 08:00 Pulse 70 06/19/24 08:00 Resp 15 06/19/24 08:00 BP 107/68 06/19/24 08:00 Pulse Ox 95 06/19/24 07:30 O2 Del Method Nasal Cannula 06/19/24 07:30 O2 Flow Rate 2 06/18/24 07:28 06/18/24 06/19/24 06/19/24 22:59 06:59 14:59 Intake Total 1011 / 1491 240 / 240 Output Total 475 / 1175 300 / 1475 Balance 536 / 316 -300 / 16 240 / 240 Weight last 48 hrs Weight 87.317 kg Weight 85.548 kg Physical Exam 2 Const: COMMON NORMALS: no acute distress and patient oriented x3 Resp: COMMON NORMALS: normal respiratory effort, No retractions, No use of accessory muscles and clear to auscultation bilaterally AUSCULTATION: clear to auscultation bilaterally Cardio: COMMON NORMALS: regular rate, regular rhythm, S1 normal heart sound present and S2 normal heart sound present RATE: regular rate RHYTHM: r egular rhythm HEART SOUNDS: S1 normal heart sound present and S2 normal heart sound present GI: COMMON NORMALS: Normal to inspection, nondistended, normoactive bowel sounds present and non-tender Extremity: NARRATIVE EXTREMITY EXAM: 1+ edema, anasarca Neuro: COMMON NORMALS: patient oriented x3 Psych: COMMON NORMALS: mental status grossly normal Data 06/19/24 03:08 06/19/24 03:08 A&P Assessment and plan (1) Acute exacerbation of CHF (congestive heart failure): Qualifiers: Heart failure type: combined systolic and diastolic Qualified Code(s): I50.43 - Acute on chronic combined systolic (congestive) and diastolic (congestive) heart failure (2) JOSAFAT (acute kidney injury): (3) Cardiorenal syndrome: (4) NSTEMI (non-ST elevated myocardial infarction): Plan Acute CHF exacerbation -BNP over 13,000 -Evidence of pulm edema, shortness of breath, 1+ edema -With concerns for soft blood pressures -As diuresed over a liter overnight Plan -Resume his midodrine 10 3 times daily -Lasix 40 IV every 8 hours -Monitor creatinine, monitor urine output -Monitor and replace potassium -Place Zhong catheter -Cardiac echo CONCLUSIONS LV systolic function is normal with EF of 55-60% Biatrial dilation Severe mitral regurgitation. Mild mitral stenosis Moderate tricuspid regurgitation. Severe pulmonary hypertension IVC appears to be dilated -Full code -Lovenox for DVT prophylaxis Severe mitral valve regurg, potentially playing a role in terms of patient's shortness of breath Acute kidney injury -Likely cardiorenal syndrome -Renal ultrasound, shows atrophic right kidney -Monitor urine output, monitor creatinine NSTEMI, -Serial EKGs, serial troponins, telemetry monitoring History of TAVR History of BPH Plan for today repeat BMP this afternoon, continue IV diuresis, fluid restrictions PDMP PDMP Reviewed: Not Reviewed Attestations 2 Medical Necessity Statement*: Patient requires hospitalization for CHF exacerbation, requires IV diuresis Diagnoses Acute on chronic combined systolic and diastolic congestive heart failure I50.43 Heart failure type: combined systolic and diastolic JOSAFAT (acute kidney injury) N17.9 Cardiorenal syndrome I13.10 NSTEMI (non-ST elevated myocardial infarction) I21.4
[2024-06-19 13:55] LABS: Anion Gap 17.2 (5-19); Blood Urea Nitrogen 40 mg/dL (8-23); Carbon Dioxide 27 mmol/L (22-29); Chloride 100 mmol/L (98-107); Glucose 120 mg/dL (65-115); Osmolality Calculated 303 mOsm/kg (285-295); Potassium 3.2 mmol/L (3.5-5.1); Sodium 141 mmol/L (136-145)
[2024-06-20] VITALS (7 sets, daily range): BP systolic 107–127; BP diastolic 59–80; PULSE 60–91; RESP 16–20; TEMP 36.4–36.8; O2SAT 90–96
[2024-06-20] MEDS: FUROsemide 10 mg/mL SDV 4mL 40 MG IVP (02:37)
[2024-06-20 03:23] LABS: Basophils # 0.1 10^3/uL (0.0-0.1); Basophils % 1.2 %; Eosinophils # 0.2 10^3/uL (0.0-0.8); Eosinophils % 3.1 %; Hematocrit 33.4 % (37-53); Lymphocytes # 0.4 10^3/uL (0.8-4.8); Lymphocytes % 8.6 %; Mean Corpuscular HGB Conc 30.8 g/dL (30-55); Mean Corpuscular Volume 94.1 fl (82-101); Mean Platelet Volume 10.6 fL (7.4-10.4); Monocytes # 0.7 10^3/uL (0.2-0.9); Monocytes % 14.5 %; Neutrophils # 3.54 10^3/uL (1.8-7.7); Neutrophils % 72.2 %; Nucleated Red Blood Cells % 0 %; Platelet Count 120 10^3/cmm (157-399); Red Blood Count 3.55 10^6/uL (3.85-5.65); Red Cell Distribution Width 16.6 % (12.1-15.1)
[2024-06-20 03:55] LABS: Alanine Aminotransferase 13 U/L (0-41); Albumin Level 3.5 g/dL (3.5-5.2); Alkaline Phosphatase 128 U/L (40-130); Anion Gap 17.4 (5-19); Aspartate Amino Transferase 18 U/L (0-40); Blood Urea Nitrogen 42 mg/dL (8-23); Calcium 8.9 mg/dL (8.5-10.5); Carbon Dioxide 28 mmol/L (22-29); Chloride 99 mmol/L (98-107); Globulin 2.9 g/dL (1.3-4.6); Glucose 107 mg/dL (65-115); Magnesium 2.3 mg/dL (1.7-2.3); NT Pro B Type Natriuretic Pept 12455 pg/mL (0-450); Osmolality Calculated 303 mOsm/kg (285-295); Phosphorus 3.8 mg/dL (2.5-4.5); Potassium 3.4 mmol/L (3.5-5.1); Sodium 141 mmol/L (136-145); Total Bilirubin 0.4 mg/dL (0.15-1.2); Total Protein 6.4 g/dL (6.6-8.7)
[2024-06-20] MEDS: clopidogrel 75 mg Tablet PO (08:33)
[2024-06-20] MEDS: finasteride 5 mg Tablet PO (08:33)
[2024-06-20] MEDS: tamsulosin 0.4 mg Capsule PO (08:33)
[2024-06-20] MEDS: potassium chloride ER 10 mEq Tablet 20 MEQ PO (08:33)
[2024-06-20] MEDS: amiodarone 200 mg Tablet PO (08:33)
[2024-06-20] MEDS: aspirin 81 mg EC Tablet PO (08:33)
[2024-06-20] MEDS: pantoprazole DR 40 mg Tablet PO (08:33)
[2024-06-20] MEDS: atorvastatin 40 mg Tablet PO (08:33)
--- NOTE | 2024-06-20 10:42 | P.PN_ITS ---
<Statement entered by Ceferino Arias M.D - 06/21/24 12:04> Patient was cared for in conjunction with an advanced practice practitioner.? I reviewed the chart and all pertinent data including imaging, telemetry, and laboratory results.? I discussed the patient in detail with the advanced practice practitioner.? Please see? their note for progress note, testing results and agreed upon plan of care for the patient. Subjective 2 Subjective: Patient doing well this morning. He states he is ready to go home. I did discuss his severe mitral regurgitation. He is been -157 4 over 24 hours. Blood pressure and heart rate stable. He denies any chest pain or shortness of breath at this time. Creatinine is slightly increased but stable at 2.4. Vitals/I&O/Wt Last Vital Signs Temp 98.2 F 06/20/24 07:58 Pulse 75 06/20/24 07:58 Resp 20 H 06/20/24 07:58 BP 112/64 06/20/24 07:58 Pulse Ox 95 06/20/24 07:58 O2 Del Method Room Air 06/20/24 07:58 O2 Flow Rate 2 06/18/24 07:28 06/19/24 06/20/24 06/20/24 22:59 06:59 14:59 Intake Total 240 / 716 Output Total 850 / 1050 999 / 2049 Balance -610 / -334 -1000 / -1334 Weight last 48 hrs Weight 187 lb Physical Exam 2 Narrative: General: No apparent distress, healthy appearing, well nourished Muskuloskeletal: Full ROM Respiratory: Normal respiratory effort, fine crackles bilateral lower lobes otherwise clear throughout, no use of accessory muscles Cardio: No JVD, regular rate, regular rhythm, S1 S2 normal, II/ murmur in mitral space, peripheral pulses 2+ radial palpated bilaterally GI: Normal to inspection, nondistended Extremities: Full ROM, normal, normal capillary refill, no cyanosis, trace edema bilateral lower extremities with compression stockings in place Neuro: Alert and oriented x4, no focal motor deficits Psych: Affect normal, denies suicidal ideation, mental status grossly normal Skin: No rashes or lesions noted, no wounds Data 06/20/24 02:05 06/20/24 02:05 A&P Assessment and plan (1) CHF (congestive heart failure): Qualifiers: Heart failure chronicity: chronic Heart failure type: systolic Q ualified Code(s): I50.22 - Chronic systolic (congestive) heart failure (2) S/P TAVR (transcatheter aortic valve replacement): (3) Positive cardiac stress test: (4) Elevated troponin: (5) ICD (implantable cardioverter-defibrillator), single, in situ: (6) Ischemic cardiomyopathy: Plan Patient is stable from a cardiology perspective. At this time he would like to go home. This is okay with us. We recommend continuing Lasix home dose 40 twice daily and metolazone consistently for at least 2 to 3 days. Follow-up in the clinic in 1 week. I did discuss with him his severe mitral regurgitation in the future if he continues to have issues with hospitalizations from this we may need to refer him for a MitraClip. At this time he would like to go ahead and get referred. We will need to do this on an outpatient basis. He may not be a candidate but at least we can refer for evaluation to a structural heart program at patient's place of choice. Potassium was also low. He will need an extra supplement for this. PDMP PDMP Reviewed: Not Reviewed Attestations 2 Medical Necessity Statement*: Defer to primary. Coding Level of Care Code Acute Code for [facility] Fwd Diagnoses Acute on chronic diastolic congestive heart failure I50.22 Heart failure chronicity: chronic Heart failure type: systolic S/P TAVR (transcatheter aortic valve replacement) Z95.2 Positive cardiac stress test R94.39 Elevated troponin R79.89 ICD (implantable cardioverter-defibrillator), single, in situ Z95.810 Ischemic cardiomyopathy I25.5
[2024-06-20] MEDS: midodrine 5 mg TABLET 10 MG PO (10:48)
--- NOTE | 2024-06-20 11:26 | PC.SOCIAL ---
IMM Update pg 2 of IMM updated and reviewed w/ patient. Copy provided and copy dated, initialed and placed in chart.
--- NOTE | 2024-06-20 13:08 | PM.DCS ---
Discharge Providers Date of Admission: 06/17/24 15:05 Date of Discharge: June 20, 2024 Attending Provider at Admission: Sreedhar Forrest MD Attending Provider at Discharge: Sreedhar Forrest MD Primary Care Provider: Cayla Perea MD Diagnoses at Discharge Discharge Diagnosis (1) CHF (congestive heart failure): Status: Acute Qualifiers: Heart failure chronicity: chronic Heart failure type: systolic Qualified Code(s): I50.22 - Chronic systolic (congestive) heart failure Permanent problem details: Echocardiogram 09/13: LVEF 55-60%, mod mitral regurg, mod pulm HTN (2) S/P TAVR (transcatheter aortic valve replacement): Status: Acute (3) Positive cardiac stress test: Status: Acute (4) Elevated troponin: Status: Acute (5) ICD (implantable cardioverter-defibrillator), single, in situ: Status: Acute (6) Ischemic cardiomyopathy: Status: Acute Reason for Visit Reason for Visit: weakness/low bp Hospital Course Hospital Course Roland (Ant George Diaz is a 88 year old male with a past medical history of CAD, history of aortic valve replacement, abdominal aortic aneurysm repair, systolic diastolic CHF, CKD stage III, hyperlipidemia, anemia, hypothyroidism, BPH, SVT, GERD, who presents to [facility] for increased lower extremity edema, shortness of breath, weight gain, low blood pressure. Currently patient alert oriented x 3, following all commands, reports increased shortness of breath with exertion, weight gain more than 10 pounds, low blood pressures, fatigue, malaise, denies any recent falls denies any chest discomfort Patient was admitted to [facility] for acute CHF exacerbation, requiring IV diuresis, also had cardiorenal syndrome, low blood pressures, requiring midodrine. Overall patient's clinical condition improved, diuresed over 2 L net negative. Will be discharged on Lasix 40 mg daily, with potassium placement therapy, with metolazone, with midodrine with instructions as below Likely patient has severe mitral valve regurgitation regurgitation playing a role, follow-up with cardiology, patient will likely require referral to [facility] for consideration of mitral valve clip Patient also has tricuspid valve regurgitation For JOSAFAT, cardiorenal syndrome, creatinine on discharge is 2.4, follow-up with cardiology and primary care provider as outpatient to recheck kidney function. Patient does have a history of severely atrophic right kidney Physical Exam Const: COMMON NORMALS: no acute distress and patient oriented x3 Resp: COMMON NORMALS: normal respiratory effort, No retractions, No use of accessory muscles and clear to auscultation bilaterally AUSCULTATION: clear to auscultation bilaterally Cardio: COMMON NORMALS: regular rate, regular rhythm, S1 normal heart sound present and S2 normal heart sound present RATE: regular rate RHYTHM: regular rhythm HEART SOUNDS: S1 normal heart sound present and S2 normal heart sound present GI: COMMON NORMALS: Normal to inspection, nondistended, normoactive bowel sounds present and non-tender Extremity: COMMON NORMALS: no pedal edema Neuro: COMMON NORMALS: patient oriented x3 Psych: COMMON NORMALS: mental status grossly normal Discharge Data Studies Completed and Pending Completed Studies During Hospitalization Category Date Time Status CXRP [XR chest 1V portable [id number]] Stat Exams 06/17/24 12:11 Completed CV. echo complete* [id number] Routine Ultrasound 06/18/24 17:41 Completed US renal BI* [id number] Routine Ultrasound 06/18/24 17:41 Completed Pending at discharge Category Date Time Status NT Pro B Type Natriuretic Pept QAM Lab 06/21/24 06:00 Ordered Radiology Impressions Chest X-Ray 06/17/24 12:11 IMPRESSION: 1. Cardiac enlargement with increased pulmonary vascularity. No acute process noted. Renal Ultrasound 06/18/24 17:41 IMPRESSION: 1. Severely atrophic right kidney 2. Prostate enlargement Laboratory Results WBC 4.90 10^3/uL (3.29-11.43) 06/20/24 02:05 RBC 3.55 10^6/uL (3.85-5.65) L 06/20/24 02:05 Hgb 10.30 g/dL (11.27-16.99) L 06/20/24 02:05 Hct 33.4 % (37-53) L 06/20/24 02:05 MCV 94.1 fl (82-101) 06/20/24 02:05 MCH 29.0 pg (27-33) 06/20/24 02:05 MCHC 30.8 g/dL (30-55) 06/20/24 02:05 RDW 16.6 % (12.1-15.1) H 06/20/24 02:05 Plt Count 120 10^3/cmm (157-399) L 06/20/24 02:05 MPV 10.6 fL (7.4-10.4) H 06/20/24 02:05 Neut % (Auto) 72.2 % 06/20/24 02:05 Lymph % (Auto) 8.6 % 06/20/24 02:05 [place] % (Auto) 14.5 % 06/20/24 02:05 Eos % (Auto) 3.1 % 06/20/24 02:05 Baso % (Auto) 1.2 % 06/20/24 02:05 Neut # (Auto) 3.54 10^3/uL (1.8-7.7) 06/20/24 02:05 Lymph # (Auto) 0.4 10^3/uL (0.8-4.8) L 06/20/24 02:05 [place] # (Auto) 0.7 10^3/uL (0.2-0.9) 06/20/24 02:05 Eos # (Auto) 0.2 10^3/uL (0.0-0.8) 06/20/24 02:05 Baso # (Auto) 0.1 10^3/uL (0.0-0.1) 06/20/24 02:05 Nucleated RBC % (auto) 0 % 06/20/24 02:05 Nucleated RBCs # 0.0 /100WBC 06/20/24 02:05 Sodium 141 mmol/L (136-145) 06/20/24 02:05 Potassium 3.4 mmol/L (3.5-5.1) L 06/20/24 02:05 Chloride 99 mmol/L (98-107) 06/20/24 02:05 Carbon Dioxide 28 mmol/L (22-29) 06/20/24 02:05 Anion Gap 17.4 (5-19) 06/20/24 02:05 BUN 42 mg/dL (8-23) H 06/20/24 02:05 Creatinine 2.4 mg/dL (0.7-1.2) H 06/20/24 02:05 GFR Calculation Not Reportable 06/20/24 02:05 Glucose 107 mg/dL (65-115) 06/20/24 02:05 Estimat Average Glucose 120 06/17/24 12:55 Hemoglobin A1c 5.8 % (4.0-6.0) 06/17/24 12:55 Calculated Osmolality 303 mOsm/kg (285-295) H 06/20/24 02:05 Calcium 8.9 mg/dL (8.5-10.5) 06/20/24 02:05 Phosphorus 3.8 mg/dL (2.5-4.5) 06/20/24 02:05 Magnesium 2.3 mg/dL (1.7-2.3) 06/20/24 02:05 Total Bilirubin 0.4 mg/dL (0.15-1.2) 06/20/24 02:05 AST 18 U/L (0-40) 06/20/24 02:05 ALT 13 U/L (0-41) 06/20/24 02:05 Alkaline Phosphatase 128 U/L (40-130) 06/20/24 02:05 Troponin T Baseline 81 ng/L (0-15) H 06/17/24 12:55 Troponin T 120 Minute 73.29 ng/L (0-15) H 06/17/24 14:41 Delta Troponin T -7.71 ABS# (0-10) L 06/17/24 14:41 Troponin T Hi Sens 6Hr 69.93 ng/L (0-15) H 06/17/24 18:51 Troponin T Hi Sens 6Hr Delta -11.07 ng/L (0-12) L 06/17/24 18:51 NT-Pro-B Natriuret Pep 70696 pg/mL (0-450) H 06/20/24 02:05 Total Protein 6.4 g/dL (6.6-8.7) L 06/20/24 02:05 Albumin 3.5 g/dL (3.5-5.2) 06/20/24 02:05 Globulin 2.9 g/dL (1.3-4.6) 06/20/24 02:05 Triglycerides 69 mg/dL (0-150) 06/17/24 12:55 Cholesterol 126 mg/dL (0-200) 06/17/24 12:55 LDL Cholesterol, Calc 65 mg/dL (50-129) 06/17/24 12:55 HDL Cholesterol 47 mg/dL (60-100) L 06/17/24 12:55 LDL/HDL Ratio 1.38 RATIO (0.00-3.22) 06/17/24 12:55 Cholesterol/HDL Ratio 2.68 mg/dL (1.0-5.00) 06/17/24 12:55 TSH 1.37 uIU/mL (0.27-4.20) 06/17/24 12:55 Urine Color Yellow (Yellow) 06/17/24 01:50 Urine Appearance Clear (CLEAR) 06/17/24 01:50 Urine pH 6.5 (5-7) 06/17/24 01:50 Ur Specific [place] 1.005 (1.005-1.030) 06/17/24 01:50 Urine Protein Neg (Negative) 06/17/24 01:50 Urine Glucose (UA) Norm (Normal) 06/17/24 01:50 Urine Ketones Negative (Negative) 06/17/24 01:50 Urine Blood Neg (Negative) 06/17/24 01:50 Urine Nitrate Negative (Negative) 06/17/24 01:50 Urine Bilirubin Neg (Negative) 06/17/24 01:50 Urine Urobilinogen Norm mg/dL (Negative) 06/17/24 01:50 Ur Leukocyte Esterase Negative (Negative) 06/17/24 01:50 Amorphous Sediment Not Reportable 06/17/24 01:50 Vitals Last Vital Signs Temp 98.2 F 06/20/24 12:00 Pulse 60 06/20/24 12:00 Resp 18 06/20/24 12:00 BP 116/64 06/20/24 12:00 Pulse Ox 94 06/20/24 12:00 O2 Del Method Room Air 06/20/24 12:00 O2 Flow Rate 2 06/18/24 07:28 Discharge Plan Discharge Patient Disposition: Home Condition: Stable Prescriptions: Continued docusate sodium [Colace] 100 mg capsule 100 mg PO BID aspirin 81 mg tablet,delayed release (DR/EC) 81 mg PO DAILY nitroglycerin [Nitrostat] 0.4 mg tablet, sublingual 0.4 mg SUBLINGUAL Q5M PRN (Reason: Chest Pain) Qty: 25 3RF potassium chloride 10 mEq tablet extended release 10 meq PO QID Qty: 180 1RF fexofenadine 60 mg tablet 60 mg PO BID PRN (Reason: sinus drainage) Qty: 20 0RF clopidogrel 75 mg tablet 75 mg PO DAILY Qty: 90 3RF amiodarone 200 mg tablet 200 mg PO DAILY Qty: 90 3RF ferrous sulfate 325 mg (65 mg iron) tablet 325 mg PO DAILY Qty: 30 3RF Rx Instructions: with breakfast atorvastatin 40 mg tablet 40 mg PO DAILY Qty: 90 3RF pantoprazole 40 mg tablet,delayed release (DR/EC) 40 mg PO DAILY Qty: 90 3RF tamsulosin 0.4 mg capsule 0.4 mg PO DAILY Qty: 90 3RF finasteride 5 mg tablet 5 mg PO DAILY Qty: 90 3RF ascorbic acid (vitamin C) [Vitamin C] 1,000 mg Tablet 1,000 mg PO DAILY vitamin B complex [Super B Complex] Tablet 1 tab PO DAILY cholecalciferol (vitamin D3) [Vitamin D3] 25 mcg (1,000 unit) Tablet 25 mcg PO DAILY calcium 26-magnesium 15-zinc 167 mg calcium- 83 mg-5 mg Capsule 1 cap PO DAILY Changed midodrine 10 mg tablet 10 mg PO TID Qty: 30 0RF Rx Instructions: Continue 3 times daily for the next 3 days, then go back to using it as needed metolazone 2.5 mg tablet 2.5 mg PO DAILY Qty: 90 0RF Rx Instructions: Use daily for the next 3 days, then go back to using it as needed for weight gain more than 3 pounds, increased lower extremity or increased shortness of breath Lasix 40 mg tablet 40 mg PO QDAY Qty: 90 0RF Discharge Orders: Discharge Order (Routine); Ordered 06/20/24 Ordered By: Sreedhar Forrest Referrals: Cayla Perea MD [Primary Care Provider] - 06/27/24 10:00 am Alla Sen FNP [Nurse Practitioner] - 7-10 days Discharge Diet: Cardiac Discharge Activity: Resume usual activity Patient Instructions: Opioid Safety Activity Restrictions/Additional Instructions: - For your Lasix continue 40 mg daily -For your metolazone continue 2.5 mg daily for the next 3 days, then go back to using it as needed for weight gain more than 3 pounds, increased lower extreme edema or increased shortness of breath ? For your midodrine continue 10 mg 3 times daily for the next 3 days, then go back to using it as needed -Please limit fluid intake to 1000 mL to 1200 mL a day -Please see your primary care provider to recheck your kidney function -If you have recurrent chest pain or shortness of breath please go to emergency room Discharge Attestations Time Spent in Discharge Care*: greater than 30 min Status at Discharge: Cognitive status at discharge: cognitively intact, Behavioral status at discharge: cooperative, Quality Metrics Clinical Quality Measures [ No reported AMI, CVA or VTE this stay] Coding Level of Care Code 06088 Total time (in minutes) for Discharge: 45 Diagnoses Acute on chronic diastolic congestive heart failure I50.22 Heart failure chronicity: chronic Heart failure type: systolic S/P TAVR (transcatheter aortic valve replacement) Z95.2 Positive cardiac stress test R94.39 Elevated troponin R79.89 ICD (implantable cardioverter-defibrillator), single, in situ Z95.810 Ischemic cardiomyopathy I25.5
== END 2024-06-20 15:30 | disposition home or self-care (01) | DRG 291 ==
LOC: ER 14:14 → ER IP 15:05 → CSU 16:39
PROVIDERS: Admitting Provider Family Medicine; Emergency Provider Emergency Medicine; PCP Family Medicine; Visit Provider Family Medicine
DX: I13.0 Hypertensive heart and chronic kidney disease with heart failure and stage 1 through stage 4 chronic kidney disease, or unspecified chronic kidney disease (principal); I50.43 Acute on chronic combined systolic (congestive) and diastolic (congestive) heart failure; N17.9 Acute kidney failure, unspecified; I24.89 Other forms of acute ischemic heart disease; N18.30 Chronic kidney disease, stage 3 unspecified; I08.1 Rheumatic disorders of both mitral and tricuspid valves; I27.20 Pulmonary hypertension, unspecified; Z95.2 Presence of prosthetic heart valve; R94.39 Abnormal result of other cardiovascular function study; Z95.810 Presence of automatic (implantable) cardiac defibrillator; I25.5 Ischemic cardiomyopathy; I25.10 Atherosclerotic heart disease of native coronary artery without angina pectoris; E78.5 Hyperlipidemia, unspecified; D63.1 Anemia in chronic kidney disease; E03.9 Hypothyroidism, unspecified; N40.0 Benign prostatic hyperplasia without lower urinary tract symptoms; K21.9 Gastro-esophageal reflux disease without esophagitis; Z79.82 Long term (current) use of aspirin; Z79.02 Long term (current) use of antithrombotics/antiplatelets; E53.8 Deficiency of other specified B group vitamins; G62.9 Polyneuropathy, unspecified; Z85.828 Personal history of other malignant neoplasm of skin; Z85.46 Personal history of malignant neoplasm of prostate; Z86.73 Personal history of transient ischemic attack (TIA), and cerebral infarction without residual deficits; E87.6 Hypokalemia; T50.2X5A Adverse effect of carbonic-anhydrase inhibitors, benzothiadiazides and other diuretics, initial encounter
CPT/HCPCS: 36415; 71045; 76770; 80048; 80053; 80061; 81003; 83036; 83735; 83880; 84100; 84443; 84484; 85025; 93005; 93306; 94664; 96372; 96376; 99285; J1650; J1940; J3480; J9999

== ENCOUNTER → 2024-06-27 11:23 | Outpatient (BNVA) | payer MEDICARE, SELFPAY | PROVIDERS: PCP Family Medicine; Visit Provider Family Medicine | DX: I10 Essential (primary) hypertension (principal); I50.22 Chronic systolic (congestive) heart failure | CPT/HCPCS: 80053; 85025 ==

== ENCOUNTER → 2024-07-06 14:10 | Outpatient (BNVA) | payer MEDICARE, SELFPAY | PROVIDERS: PCP Family Medicine; Visit Provider Nurse Practitioner Family | DX: R23.3 Spontaneous ecchymoses (principal); L72.0 Epidermal cyst; L85.3 Xerosis cutis; D22.5 Melanocytic nevi of trunk; L81.4 Other melanin hyperpigmentation; L57.8 Other skin changes due to chronic exposure to nonionizing radiation; L82.1 Other seborrheic keratosis; Z08 Encounter for follow-up examination after completed treatment for malignant neoplasm; Z85.828 Personal history of other malignant neoplasm of skin; L57.0 Actinic keratosis; L56.8 Other specified acute skin changes due to ultraviolet radiation; D48.5 Neoplasm of uncertain behavior of skin | CPT/HCPCS: 11104; 17004; 99213 ==

== ENCOUNTER → 2024-07-11 14:11 | Outpatient (BNVA) | payer MEDICARE, SELFPAY | PROVIDERS: PCP Family Medicine; Visit Provider Family Medicine | DX: I50.22 Chronic systolic (congestive) heart failure (principal); N18.32 Chronic kidney disease, stage 3b; H81.10 Benign paroxysmal vertigo, unspecified ear | CPT/HCPCS: 80048; 83880 ==

== ENCOUNTER → 2024-07-13 15:25 | Outpatient (BNVA) | payer MEDICARE, SELFPAY | PROVIDERS: PCP Family Medicine; Visit Provider Nurse Practitioner Family | DX: I13.0 Hypertensive heart and chronic kidney disease with heart failure and stage 1 through stage 4 chronic kidney disease, or unspecified chronic kidney disease (principal); N18.30 Chronic kidney disease, stage 3 unspecified; I50.9 Heart failure, unspecified; I34.0 Nonrheumatic mitral (valve) insufficiency; Z79.01 Long term (current) use of anticoagulants; Z79.82 Long term (current) use of aspirin; Z95.5 Presence of coronary angioplasty implant and graft; Z95.2 Presence of prosthetic heart valve | CPT/HCPCS: 99214 ==

== ENCOUNTER → 2024-07-20 10:32 | Outpatient (BNVA) | payer MEDICARE, SELFPAY | PROVIDERS: PCP Family Medicine; Visit Provider Internal Medicine Cardiovascular Disease | DX: Z45.02 Encounter for adjustment and management of automatic implantable cardiac defibrillator (principal) | CPT/HCPCS: 93296 ==

== ENCOUNTER → 2024-08-01 11:46 | Outpatient (BNVA) | payer MEDICARE, SELFPAY | PROVIDERS: PCP Family Medicine; Visit Provider Family Medicine | DX: I50.22 Chronic systolic (congestive) heart failure (principal) | CPT/HCPCS: 80048 ==

== ENCOUNTER 2024-09-01 06:34 | Observation (INO) | payer MEDICARE, SELFPAY ==
[2024-09-01] VITALS (11 sets, daily range): BP systolic 105–124; BP diastolic 51–78; PULSE 55–83; RESP 17–28; TEMP 36.2–36.7; O2SAT 76–100; BMI 23.7
--- NOTE | 2024-09-01 06:48 | XR_ITS ---
WS: [id number] Portable AP upright chest, 09/01/2024 Clinical Data: dyspnea/cough Comparison: Portable chest, 06/17/2024 Findings: No nodules, masses or effusions are seen. The heart is enlarged. The pulmonary vascularity is not increased. No pneumonia or pneumothorax is seen. There is an artificial cardiac valve unchanged. There is a single lead pacemaker with the generator overlying the left lateral chest. The aortic arch shows calcification and tortuosity. Monitor leads are on the chest wall. XR/XR chest 1V portable [id number] Impression: 1. Cardiomegaly and artificial heart valve. 2. Permanent cardiac pacemaker and atherosclerosis.
--- NOTE | 2024-09-01 06:52 | ECG_ITS ---
[facility] Test Date: 2024-09-01 Pat Name: Roland Diaz (Leroy) Department: Room: Gender: Male Claim Technician: : 1935 Requested By: Zac Vazquez Order Number: [id number] Kimberlee MD: Ceferino Arias M.D. Measurements Intervals [place] Rate: 57 P: 0 DC: 0 QRS: 198 QRSD: 160 T: 29 QT: 504 QTc: 492 Interpretive Statements ATRIAL FLUTTER WITH SLOW VENTRICULAR RESPONSE RIGHT AXIS DEVIATION [QRS AXIS > 100] INTRAVENTRICULAR CONDUCTION DELAY [130+ ms QRS DURATION] Compared to ECG 06/17/2024 18:27:42 Right-axis deviation now present Atrial fibrillation no longer present Myocardial infarct finding no longer present Electronically Signed On 09-02-2024 14:59:07 CDT by Ceferino Arias M.D. [email or web address]
--- NOTE | 2024-09-01 06:54 | W.ED.GENADLT ---
HPI - General Adult General: Chief complaint: Weakness Stated complaint: weakness flu like symptoms Time Seen by Provider: 09/01/24 06:47 History of Present Illness: 88-year-old male presents emergency room complaining of weakness flulike symptoms. He denies chest pain he has had increasing shortness of breath. No abdominal pain no dysuria urgency or frequency. No rash or skin outbreak. He has no signs of stroke at this time. Associated symptoms: Reports dyspnea and malaise; Deny chest pain or rash Related Data Home Medications ?Medication ?Instructions ?Recorded ?Confirmed docusate sodium 100 mg capsule 100 mg PO BID Constipation 04/05/19 09/01/24 (Colace) ascorbic acid (vitamin C) 1,000 mg 1,000 mg PO DAILY 11/06/20 09/01/24 tablet (Vitamin C) aspirin 81 mg tablet,delayed 81 mg PO DAILY 06/03/24 09/01/24 release calcium no.26 167 mg-magnesium 1 cap PO DAILY 06/17/24 09/01/24 no.15 83 mg-zinc 5 mg capsule cholecalciferol (vitamin D3) 25 25 mcg PO DAILY 06/17/24 09/01/24 mcg (1,000 unit) tablet (Vitamin D3) vitamin B complex 1 tab PO DAILY 06/17/24 09/01/24 fexofenadine 60 mg tablet 60 mg PO BID 07/13/24 09/01/24 atorvastatin 40 mg tablet 40 mg PO QPM 09/01/24 09/01/24 dextromethorphan polistirex 30 10 ml PO BID PRN Cough 09/01/24 09/01/24 mg/5 mL oral susp ext.release 12hr (Children's Delsym Cough) fluticasone propionate 50 1 spray intranasal DAILY 09/01/24 09/01/24 mcg/actuation nasal spray,suspension lactulose 10 gram/15 mL oral 20 g PO BID PRN Constipation 09/01/24 09/01/24 solution potassium chloride 10 mEq 10 meq PO QID 09/01/24 09/01/24 tablet,extended release vitamin A 2,400 mcg capsule 2,400 mcg PO DAILY 09/01/24 09/01/24 Previous Rx's ?Medication ?Instructions ?Recorded ferrous sulfate 325 mg (65 mg 325 mg PO DAILY #30 tabs 01/08/23 iron) tablet pantoprazole 40 mg tablet,delayed 40 mg PO DAILY #90 tabs 07/30/23 release tamsulosin 0.4 mg capsule 0.4 mg PO DAILY #90 caps 08/26/23 nitroglycerin 0.4 mg sublingual 0.4 mg sublingual Q5M PRN Chest 12/22/23 tablet (Nitrostat) Pain #25 tabs finasteride 5 mg tablet 5 mg PO DAILY #90 tabs 03/21/24 amiodarone 200 mg tablet 200 mg PO DAILY for rhythm #90 tabs 05/09/24 clopidogrel 75 mg tablet 75 mg PO DAILY #90 tabs 05/09/24 furosemide 40 mg tablet (Lasix) 40 mg PO QDAY edema #90 tabs 06/20/24 midodrine 10 mg tablet See Rx Instructions .Route 06/21/24 .COMPLEX #30 tabs azithromycin 500 mg tablet See Rx Instructions PO .COMPLEX #3 09/02/24 tabs dextromethorphan-guaifenesin 5 20 ml PO Q8H PRN cough #500 mL 09/02/24 mg-100 mg/5 mL oral liquid (Robitussin Cough-Chest Congestion DM) guaifenesin 600 mg tablet, 600 mg PO BID #60 tabs 09/02/24 extended release 12 hr (Mucinex) Allergies Allergy/AdvReac Type Severity Reaction Status Date / Time loratadine Allergy ADR-Itching Verified 09/01/24 08:13 Review of Systems Const: Reports: fatigue and malaise; Denies: fever(s) or chills Card: Denies: chest pain Resp: Reports: dyspnea GI: Denies: abdominal pain : Denies: dysuria, urinary frequency or urinary urgency Musc: Denies: neck pain or back pain Skin/Breast: Denies: rash PFSH ED PFSH: Medical History Positive cardiac stress test Severe mitral regurgitation 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 Aortic stenosis Ventricular tachycardia Status post AICD placement Stage 3 chronic kidney disease 1.7-2.1 baseline creatinine Essential hypertension CHF (congestive heart failure) Echocardiogram 09/13: LVEF 55-60%, mod mitral regurg, mod pulm HTN Hyperlipidemia Anemia iron deficient Hypothyroidism Vitamin B12 deficiency Allergic rhinitis Insomnia ASHD (arteriosclerotic heart disease) Ischemic cardiomyopathy BPH (benign prostatic hyperplasia) Gynecomastia, male Acute kidney injury superimposed on chronic kidney disease Abdominal aortic aneurysm (AAA) 4.3?4.3 approximately 5.04?5.04 distally Peripheral neuropathy History of nonmelanoma skin cancer Claudication of both lower extremities Pulmonary HTN Bradycardia Heart block atrioventricular Prostate cancer SVT (supraventricular tachycardia) Cognitive dysfunction GERD (gastroesophageal reflux disease) TIA (transient ischemic attack) Surgical History Fracture of left hip requiring operative repair S/P TAVR (transcatheter aortic valve replacement) S/P angioplasty with stent Coronary disease status post 3 stents Status post endovascular aneurysm repair (EVAR) S/P implantation of automatic cardioverter/defibrillator (AICD) [facility] [employer] 08/07 Family History Father CAD (coronary artery disease) Mother CAD (coronary artery disease) Congestive heart failure (CHF) Brother Parkinson disease Sister Fibromyalgia Other Cancer Social History Smoking and tobacco/nicotine status: never used tobacco/nicotine Alcohol intake: never Substance/Drug Use: never Lives independently: Yes Marital status: / service: No Current occupational status: retired Current gender identity: Male Gillian/Synagogue: Synagogue Physical Exam Const: GENERAL APPEARANCE: cooperative ORIENTATION/CONSCIOUSNESS: Yes awake, Yes oriented to person, Yes oriented to place and Yes oriented to time HENMT: COMMON NORMALS: normocephalic, atraumatic and hearing grossly normal bilaterally HEAD & SCALP: normocephalic and atraumatic Resp: COMMON NORMALS: normal respiratory effort, No retractions, No use of accessory muscles and clear to auscultation bilaterally AUSCULTATION: clear to auscultation bilaterally Cardio: COMMON NORMALS: regular rate, regular rhythm and No murmurs present (Cardio) RATE: regular rate RHYTHM: regular rhythm GI: COMMON NORMALS: Soft to palpation and No hepatosplenomegaly present AUSCULTATION: Yes normoactive bowel sounds PALPATION: Yes Soft to palpation, No Tenderness to palpation present (GI), No Guarding due to palpation present (GI) and Yes No hepatosplenomegaly present Extremity: COMMON NORMALS: normal to inspection, capillary refill normal, no clubbing, cyanosis or edema, no calf tenderness and no pedal edema Neuro: SENSORIUM/ORIENTATION: Yes oriented to person, Yes oriented to place and Yes oriented to time Skin: COMMON NORMALS: no rashes or lesions noted GENERAL SKIN EXAM: no rashes or lesions noted Course Vital Signs: Vital signs: Vital Signs Temperature 97.7 F 09/02/24 08:00 Pulse Rate 71 09/02/24 10:49 Respiratory Rate 20 H 09/02/24 10:49 Blood Pressure 106/59 09/02/24 10:49 Pulse Oximetry 94 09/02/24 10:49 Oxygen Delivery Me thod Nasal Cannula 09/02/24 09:14 Oxygen Flow Rate 1 09/02/24 09:14 MDM - General Adult Medical Decision Making Acute kidney injury with hypomagnesemia and hypokalemia. Additionally patient has some mild CHF discussed with hospitalist will observetation. Medical Records I reviewed the patient's medical records. Lab Data 09/02/24 04:55 09/02/24 04:55 Radiology Impressions Chest X-Ray 09/01/24 06:48 Impression: 1. Cardiomegaly and artificial heart valve. 2. Permanent cardiac pacemaker and atherosclerosis. Chest CTA 09/01/24 08:58 IMPRESSION: 1. Pulmonary edema/CHF. 2. No filling defects suspicious for PE. 3. Cardiomegaly. No pericardial fluid. Severe three-vessel coronary artery disease. Note made of reflux of contrast into the IVC and hepatic veins in keeping with right heart dysfunction. 4. 9 x 9 mm sclerotic focus in right T3 vertebral body. Nonspecific. If there is history of malignancy, suspicious for osseous metastatic disease until proven otherwise. Recommend clinical correlation. Consider MRI thoracic spine and/or nuclear medicine bone scan for complete evaluation of the osseous structures. Laboratory Results WBC 5.62 10^3/uL (3.29-11.43) 09/01/24 07:04 RBC 4.35 10^6/uL (3.85-5.65) 09/01/24 07:04 Hgb 12.40 g/dL (11.27-16.99) 09/01/24 07:04 Hct 38.7 % (37-53) 09/01/24 07:04 MCV 89.0 fl (82-101) 09/01/24 07:04 MCH 28.5 pg (27-33) 09/01/24 07:04 MCHC 32.0 g/dL (30-55) 09/01/24 07:04 RDW 18.6 % (12.1-15.1) H 09/01/24 07:04 Plt Count 144 10^3/cmm (157-399) L 09/01/24 07:04 MPV 10.6 fL (7.4-10.4) H 09/01/24 07:04 Neut % (Auto) 76.4 % 09/01/24 07:04 Lymph % (Auto) 6.4 % 09/01/24 07:04 [place] % (Auto) 13.2 % 09/01/24 07:04 Eos % (Auto) 2.5 % 09/01/24 07:04 Baso % (Auto) 1.1 % 09/01/24 07:04 Neut # (Auto) 4.30 10^3/uL (1.8-7.7) 09/01/24 07:04 Lymph # (Auto) 0.4 10^3/uL (0.8-4.8) L 09/01/24 07:04 [place] # (Auto) 0.7 10^3/uL (0.2-0.9) 09/01/24 07:04 Eos # (Auto) 0.1 10^3/uL (0.0-0.8) 09/01/24 07:04 Baso # (Auto) 0.1 10^3/uL (0.0-0.1) 09/01/24 07:04 Nucleated RBC % (auto) 0 % 09/01/24 07:04 Nucleated RBCs # 0.0 /100WBC 09/01/24 07:04 D-Dimer 3.29 ug/mLFEU (0-0.59) H 09/01/24 07:04 Sodium 133 mmol/L (136-145) L 09/01/24 07:04 Potassium 2.6 mmol/L (3.5-5.1) L* 09/01/24 07:04 Chloride 87 mmol/L (98-107) L 09/01/24 07:04 Carbon Dioxide 26 mmol/L (22-29) 09/01/24 07:04 Anion Gap 22.6 (5-19) H 09/01/24 07:04 BUN 42 mg/dL (8-23) H 09/01/24 07:04 Creatinine 2.1 mg/dL (0.7-1.2) H 09/01/24 07:04 GFR Calculation Not Reportable 09/01/24 07:04 Glucose 87 mg/dL (65-115) 09/01/24 07:04 Calculated Osmolality 286 mOsm/kg (285-295) 09/01/24 07:04 Calcium 9.1 mg/dL (8.5-10.5) 09/01/24 07:04 Magnesium 2.5 mg/dL (1.7-2.3) H 09/01/24 07:04 Total Bilirubin 1.1 mg/dL (0.15-1.2) 09/01/24 07:04 AST 27 U/L (0-40) 09/01/24 07:04 ALT 19 U/L (0-41) 09/01/24 07:04 Alkaline Phosphatase 160 U/L (40-130) H 09/01/24 07:04 Total Protein 7.3 g/dL (6.6-8.7) 09/01/24 07:04 Albumin 3.7 g/dL (3.5-5.2) 09/01/24 07:04 Globulin 3.6 g/dL (1.3-4.6) 09/01/24 07:04 Urine Color Yellow (Yellow) 09/01/24 08:12 Urine Appearance Clear (CLEAR) 09/01/24 08:12 Urine pH 7.0 (5-7) 09/01/24 08:12 Ur Specific [place] 1.008 (1.005-1.030) 09/01/24 08:12 Urine Protein Negative (Negative) 09/01/24 08:12 Urine Glucose (UA) Negative (Normal) 09/01/24 08:12 Urine Ketones Negative (Negative) 09/01/24 08:12 Urine Blood Negative (Negative) 09/01/24 08:12 Urine Nitrate Negative (Negative) 09/01/24 08:12 Urine Bilirubin Negative (Negative) 09/01/24 08:12 Urine Urobilinogen 1.0 mg/dL (Negative) 09/01/24 08:12 Ur Leukocyte Esterase Negative (Negative) 09/01/24 08:12 Urine RBC 0-2 /hpf (0-2) 09/01/24 08:12 Urine WBC 0-5 /hpf (0-5) 09/01/24 08:12 Ur Squamous Epith Cells 0-5 /hpf (0-5) 09/01/24 08:12 Amorphous Sediment Not Reportable 09/01/24 08:12 Urine Bacteria None seen /hpf (NONE) 09/01/24 08:12 Hyaline Casts 0-4 /lpf H 09/01/24 08:12 Influenza A (PCR) Negative (Negative) 09/01/24 07:08 Influenza Type B (PCR) Negative (Negative) 09/01/24 07:08 RSV (PCR) Negative (Negative) 09/01/24 07:08 SARS-CoV-2 (PCR) Negative (Negative) 09/01/24 07:08 All radiology interpretation(s) finalized by discharge Discharge Plan Discharge Patient Disposition: Placed in Observation Admit Provider: Sanjeev Fry Clinical Impression: Acute hypokalemia, Hypermagnesemia, Acute kidney injury superimposed on chronic kidney disease, S/P TAVR (transcatheter aortic valve replacement) CHF (congestive heart failure) Qualifiers: Heart failure type: systolic Heart failure chronicity: chronic Qualified Code(s): I50.22 - Chronic systolic (congestive) heart failure Discharge Diet: Cardiac Coding Level of Care Code ED [employer] Field Supervisor for Jose Carlos Omer
[2024-09-01 07:17] LABS: Basophils # 0.1 10^3/uL (0.0-0.1); Basophils % 1.1 %; Eosinophils # 0.1 10^3/uL (0.0-0.8); Eosinophils % 2.5 %; Hematocrit 38.7 % (37-53); Lymphocytes # 0.4 10^3/uL (0.8-4.8); Lymphocytes % 6.4 %; Mean Corpuscular Hemoglobin 28.5 pg (27-33); Mean Platelet Volume 10.6 fL (7.4-10.4); Monocytes # 0.7 10^3/uL (0.2-0.9); Monocytes % 13.2 %; Neutrophils % 76.4 %; Nucleated Red Blood Cells % 0 %; Platelet Count 144 10^3/cmm (157-399); Red Blood Count 4.35 10^6/uL (3.85-5.65); Red Cell Distribution Width 18.6 % (12.1-15.1); White Blood Count 5.62 10^3/uL (3.29-11.43)
[2024-09-01 07:35] LABS: Alanine Aminotransferase 19 U/L (0-41); Albumin Level 3.7 g/dL (3.5-5.2); Alkaline Phosphatase 160 U/L (40-130); Anion Gap 22.6 (5-19); Aspartate Amino Transferase 27 U/L (0-40); Blood Urea Nitrogen 42 mg/dL (8-23); Calcium 9.1 mg/dL (8.5-10.5); Carbon Dioxide 26 mmol/L (22-29); Chloride 87 mmol/L (98-107); Globulin 3.6 g/dL (1.3-4.6); Glucose 87 mg/dL (65-115); Osmolality Calculated 286 mOsm/kg (285-295); Sodium 133 mmol/L (136-145); Total Bilirubin 1.1 mg/dL (0.15-1.2); Total Protein 7.3 g/dL (6.6-8.7)
[2024-09-01 07:39] LABS: Potassium 2.6 mmol/L (3.5-5.1)
--- NOTE | 2024-09-01 07:46 | PC.NURSE ---
PT OXYGEN SATURATION DROPPING WHILE SLEEPING. PT PLACED ON 3L NC. PROVIDER NOTIFIED.
[2024-09-01 07:51] LABS: Influenza A NEGATIVE (Negative); Influenza B NEGATIVE (Negative); Respiratory Syncytial Virus Ce NEGATIVE (Negative); SARS-CoV-2 PCR NEGATIVE (Negative)
--- NOTE | 2024-09-01 08:10 | PC.PHAR ---
Pt received new rx 08/25/24 for Loratadine 10mg daily.. He had a bad reaction of itching all over and is not going to take anymore. He requested it to be put on his allergy list and taken off his med list.
[2024-09-01 08:27] LABS: Bilirubin Urine Negative (Negative); Blood Urine Negative (Negative); Glucose Urine UA Negative (Normal); Ketones Urine Negative (Negative); Leukocyte Esterase Urine Negative (Negative); Nitrate Urine Negative (Negative); Protein Urine Negative (Negative); Specific Gravity, Urine 1.008 (1.005-1.030); Urine Appearance Clear (CLEAR); Urine Color Yellow (Yellow)
[2024-09-01 08:30] LABS: Add Urine Microscopic? YES; Bacteria Urine None Seen /hpf; Hyaline Casts Urine 0-4 /lpf; RBC Urine 0-2 /hpf (0-2); Squamous Epithelial Cell Urine 0-5 /hpf (0-5); WBC Urine 0-5 /hpf (0-5)
[2024-09-01 08:35] LABS: Magnesium 2.5 mg/dL (1.7-2.3)
[2024-09-01] MEDS: sodium chloride 0.9% 1,000 ML 999 ML IV ×2 (08:52→09:50)
[2024-09-01 08:53] LABS: D Dimer 3.29 ug/mLFEU (0-0.59)
[2024-09-01] MEDS: lidocaine 1% 5 ML in potassium chloride premix 100 ML 26.25 ML IV (08:53)
--- NOTE | 2024-09-01 08:58 | CTR_ITS ---
PROCEDURE INFORMATION: Exam: CTA Chest With Contrast Exam date and time: 09/01/2024 9:35 AM Age: 88 years old Clinical indication: Abnormal findings; Abnormal diagnostic tests; Elevated d-dimer; Shortness of breath; Prior surgery; Surgery date: 6+ months; Surgery type: Pacemaker; Additional info: Hypoxia elevated d-dimer TECHNIQUE: Imaging protocol: Computed tomographic angiography of the chest with contrast. Exam focused on the arteries. 3D rendering (Not supervised by radiologist): MIP and/or 3D reconstructed images were created by the technologist. Radiation optimization: All CT scans at this facility use at least one of these dose optimization techniques: automated exposure control; mA and/or kV adjustment per patient size (includes targeted exams where dose is matched to clinical indication); or iterative reconstruction. Contrast material: OMNI 350; Contrast volume: 100 ml; Contrast route: INTRAVENOUS (IV); COMPARISON: CT chest abdpel w/*[id number] 10/30/2021 5:06 AM RADIATION DOSE METRICS: Total DLP (mGy-cm): 406.56 FINDINGS: Tubes, catheters and devices: Left chest wall AICD is present. Pulmonary arteries: No filling defects suspicious for PE. Aorta: Unremarkable. No aortic aneurysm. No aortic dissection. Lungs: Mild diffuse background ground-glass opacification of the lungs. Scattered interlobular and intra lobular septal thickening in keeping with pulmonary edema. Scattered reticular opacities. No distinct nodules. Pulmonary edema/CHF. Pleural spaces: Trace bilateral pleural effusions, [id number]. Heart: Cardiomegaly. No pericardial fluid. Severe three-vessel coronary artery disease. Note made of reflux of contrast into the IVC and hepatic veins in keeping with right heart dysfunction. Prosthetic aortic valve is present. Robust calcification of the mitral annulus. Lymph nodes: Small calcified mediastinal and bilateral hilar lymph nodes from prior granulomatous infection. Bones/joints: 9 x 9 mm sclerotic focus in right T3 vertebral body on image 38 series 8. . Nonspecific. If there is history of malignancy, suspicious for osseous metastatic disease until proven otherwise. Recommend clinical correlation. Consider MRI thoracic spine and/or nuclear medicine bone scan for complete evaluation of the osseous structures. Soft tissues: Mild anasarca. Mild bilateral gynecomastia. CT/CT angio chest PE protcl [id number] IMPRESSION: 1. Pulmonary edema/CHF. 2. No filling defects suspicious for PE. 3. Cardiomegaly. No pericardial fluid. Severe three-vessel coronary artery disease. Note made of reflux of contrast into the IVC and hepatic veins in keeping with right heart dysfunction. 4. 9 x 9 mm sclerotic focus in right T3 vertebral body. Nonspecific. If there is history of malignancy, suspicious for osseous metastatic disease until proven otherwise. Recommend clinical correlation. Consider MRI thoracic spine and/or nuclear medicine bone scan for complete evaluation of the osseous structures.
[2024-09-01] MEDS: iohexol 350 mg/mL 500 mL Btl (per mL) IV (09:39)
[2024-09-01] MEDS: FUROsemide 10 mg/mL SDV 4mL 40 MG IVP (10:57)
--- NOTE | 2024-09-01 11:26 | PM.HP ---
Providers/Chief Complaint Admitting Physician: Sanjeev Fry Primary Care Provider: Cayla Perea MD Chief Complaint: weakness flu like symptoms History of Present Illness Roland Diaz (Leroy) is a 88 year very pleasant, hard of hearing gentleman with a history of severe mitral regurgitation, severe pulmonary hypertension, aortic stenosis, congestive heart failure, chronic kidney disease, anemia, transient ischemic attack, abdominal aortic aneurysm, hyperlipidemia, bioprosthetic aortic valve, paroxysmal pulmonary hypertension, bradycardia (with pacemaker), GERD, and coronary artery disease with three stents, presenting with weakness and flu-like symptoms. The patient was recently hospitalized in May for CHF exacerbation, treated with IV diuretics. He has had increased shortness of breath, fatigue, malaise, and weight gain. He reports a week of cough productive of phlegm, no runny nose, no fever or headache, but some body aches due to cold. He had a couple of episodes of vomiting last week, no significant diarrhea, but one episode of incontinence. He experiences dizziness and balance issues when walking, uses a cane for longer distances, and denies chest pain, pressure, or leg swelling. He lives with his niece and her children. Recent cardiology evaluation for mitral regurgitation included two tests at [facility], but he has not yet received results or a follow-up appointment. In the ED, he was found to have hypokalemia, hypermagnesemia, elevated creatinine, and required oxygen (2->4L). COVID, flu, and RSV tests were negative. Elevated D-dimer. Received hydration, CTA imaging showed no pneumonia or PE, but noted cardiomegaly and a sclerotic vertebral lesion. He received IV Lasix and potassium in the ED. He has had productive cough, although phlegm has been subsiding. Request for observation hospitalization due to symptomatic fatigability and increased oxygen requirement. Review of Systems Const: Reports: fatigue and malaise; Denies: fever(s) or chills ENMT: Denies: throat pain Card: Reports: dyspnea on exertion; Denies: chest pain, edema or pre-syncope Resp: Reports: productive cough; Denies: dyspnea, change in phlegm color or hemoptysis GI: Denies: abdominal pain, nausea, vomiting, diarrhea, constipation, hematochezia or melena : Denies: flank pain, difficulty urinating, urinary frequency or hematuria Musc: Denies: back pain, joint swelling or joint redness Skin/Breast: Denies: rash or new lesions Neuro: Denies: headache(s) or confusion Medications/Allergies Home Medications ?Medication ?Instructions ?Recorded ?Confirmed ?Last Taken ?Type docusate sodium 100 mg capsule 100 mg PO BID Constipation 04/05/19 09/01/24 08/31/24 History (Colace) ascorbic acid (vitamin C) 1,000 mg 1,000 mg PO DAILY 11/06/20 09/01/24 08/31/24 History tablet (Vitamin C) ferrous sulfate 325 mg (65 mg 325 mg PO DAILY #30 tabs 01/08/23 09/01/24 08/31/24 Rx iron) tablet pantoprazole 40 mg tablet,delayed 40 mg PO DAILY #90 tabs 07/30/23 09/01/24 08/31/24 Rx release tamsulosin 0.4 mg capsule 0.4 mg PO DAILY #90 caps 08/26/23 09/01/24 08/31/24 Rx nitroglycerin 0.4 mg sublingual 0.4 mg sublingual Q5M PRN Chest 12/22/23 09/01/24 Unknown Rx tablet (Nitrostat) Pain #25 tabs finasteride 5 mg tablet 5 mg PO DAILY #90 tabs 03/21/24 09/01/24 08/31/24 Rx amiodarone 200 mg tablet 200 mg PO DAILY for rhythm #90 tabs 05/09/24 09/01/24 08/31/24 Rx clopidogrel 75 mg tablet 75 mg PO DAILY #90 tabs 05/09/24 09/01/24 08/31/24 Rx aspirin 81 mg tablet,delayed 81 mg PO DAILY 06/03/24 09/01/24 08/31/24 History release calcium no.26 167 mg-magnesium 1 cap PO DAILY 06/17/24 09/01/24 08/31/24 History no.15 83 mg-zinc 5 mg capsule cholecalciferol (vitamin D3) 25 25 mcg PO DAILY 06/17/24 09/01/24 08/31/24 History mcg (1,000 unit) tablet (Vitamin D3) vitamin B complex 1 tab PO DAILY 06/17/24 09/01/24 08/31/24 History furosemide 40 mg tablet (Lasix) 40 mg PO QDAY edema #90 tabs 06/20/24 09/01/24 08/31/24 Rx midodrine 10 mg tablet See Rx Instructions .Route 06/21/24 09/01/24 Unknown Rx .COMPLEX #30 tabs fexofenadine 60 mg tablet 60 mg PO BID 07/13/24 09/01/24 08/31/24 History atorvastatin 40 mg tablet 40 mg PO QPM 09/01/24 09/01/24 08/31/24 History dextromethorphan polistirex 30 10 ml PO BID PRN Cough 09/01/24 09/01/24 08/30/24 History mg/5 mL oral susp ext.release 12hr (Children's Delsym Cough) fluticasone propionate 50 1 spray intranasal DAILY 09/01/24 09/01/24 08/31/24 History mcg/actuation nasal spray,suspension lactulose 10 gram/15 mL oral 20 g PO BID PRN Constipation 09/01/24 09/01/24 08/31/24 History solution potassium chloride 10 mEq 10 meq PO QID 09/01/24 09/01/24 08/31/24 History tablet,extended release vitamin A 2,400 mcg capsule 2,400 mcg PO DAILY 09/01/24 09/01/24 08/31/24 History Allergies Allergy/AdvReac Type Severity Reaction Status Date / Time loratadine Allergy ADR-Itching Verified 09/01/24 08:13 PFSH Acute PFSH: Medical History Positive cardiac stress test Severe mitral regurgitation 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 Aortic stenosis Ventricular tachycardia Status post AICD placement Stage 3 chronic kidney disease 1.7-2.1 baseline creatinine Essential hypertension CHF (congestive heart failure) Echocardiogram 09/13: LVEF 55-60%, mod mitral regurg, mod pulm HTN Hyperlipidemia Anemia iron deficient Hypothyroidism Vitamin B12 deficiency Allergic rhinitis Insomnia ASHD (arteriosclerotic heart disease) Ischemic cardiomyopathy BPH (benign prostatic hyperplasia) Gynecomastia, male Acute kidney injury superimposed on chronic kidney disease Abdominal aortic aneurysm (AAA) 4.3?4.3 approximately 5.04?5.04 distally Peripheral neuropathy History of nonmelanoma skin cancer Claudication of both lower extremities Pulmonary HTN Bradycardia Heart block atrioventricular Prostate cancer SVT (supraventricular tachycardia) Cognitive dysfunction GERD (gastroesophageal reflux disease) TIA (transient ischemic attack) Surgical History Fracture of left hip requiring operative repair S/P TAVR (transcatheter aortic valve replacement) S/P angioplasty with stent Coronary disease status post 3 stents Status post endovascular aneurysm repair (EVAR) S/P implantation of automatic cardioverter/defibrillator (AICD) [facility] [employer] 08/07 Family History Father CAD (coronary artery disease) Mother CAD (coronary artery disease) Congestive heart failure (CHF) Brother Parkinson disease Sister Fibromyalgia Other Cancer Social History Smoking and tobacco/nicotine status: never used tobacco/nicotine Alcohol intake: never Substance/Drug Use: never Lives independently: Yes Marital status: / service: No Current occupational status: retired Current gender identity: Male Gillian/[employer]: [employer] Vitals/I&O/Wt Last Vital Signs Temp 98.1 F 09/01/24 06:53 Pulse 58 L 09/01/24 10:00 Resp 18 09/01/24 06:53 BP 109/57 09/01/24 10:00 Pulse Ox 98 09/01/24 10:00 O2 Del Method Nasal Cannula 09/01/24 10:00 O2 Flow Rate 2 09/01/24 10:00 08/31/24 09/01/24 09/01/24 22:59 06:59 14:59 Intake Total 1999 Balance 1999 Weight last 48 hrs Weight 77.111 kg Physical Exam Const: COMMON NORMALS: patient oriented x3 and alert GENERAL APPEARANCE: cooperative ORIENTATION/CONSCIOUSNESS: Yes awake HENMT: COMMON NORMALS: oropharynx normal Resp: COMMON NORMALS: normal respiratory effort and clear to auscultation bilaterally AUSCULTATION: clear to auscultation bilaterally Cardio: RHYTHM: regular rhythm HEART SOUNDS: Murmur heart sound present systolic Location: apex and left sternal border GI: COMMON NORMALS: Normal to inspection, nondistended, normoactive bowel sounds present, Soft to palpation and non-tender PALPATION: Yes Soft to palpation Extremity: COMMON NORMALS: no joint enlargement and no pedal edema Neuro: COMMON NORMALS: patient oriented x3 and moves all extremities SENSORIUM/ORIENTATION: Yes alert Skin: COMMON NORMALS: no rashes or lesions noted GENERAL SKIN EXAM: no rashes or lesions noted Data 09/01/24 07:04 09/01/24 07:04 A&P Assessment and plan (1) Fatigue: Fatigue and malaise over the last week, productive cough, dyspnea on exertion, some bodyaches. Phlegm production has been subsiding. Afebrile, without leukocytosis, without sign of pneumonia on chest x-ray. D-dimer abnormal, no PE on CTA. May be recovering after acute viral illness prodromal to her symptoms. He did have couple episodes of vomiting last week, possibility of bronchitis related to that. Otherwise likely contribution from severe mitral regurgitation and severe pulmonary hypertension as discussed with him. He has been undergoing workup at [facility], but has not heard about results of 2 tests he had done to determine whether he may be candidate for mitral valve clipping. Requesting medical records from [facility]. Possible acute diastolic heart failure. With noted hypoxia requiring 2 and as much as 4 L by nasal cannula in ED. Not previously on oxygen. With poor exertional tolerance. Reviewed vitals, CBC, D-dimer, CMP, UA, influenza/COVID/RSV PCR, chest x-ray, CTA, EKG, ED provider note, discussed with the provider. As he has persistent symptoms we will obtain a broader viral panel. Obtain sputum culture if possible. Guaifenesin, flutter valve. Breathing treatments as needed. Budesonide. Initial concern for JOSAFAT on CKD, however, renal function appears stable over the last several months. This may be his new baseline. Received initial hydration, however, with worsening oxygen requirement from 2 L to 4 L by nasal cannula, received diuretic, will continue IV Lasix twice daily for now. Monitor for risk of hypotension, dehydration, JOSAFAT, electrolyte deficiency. Hypokalemia has been supplemented in the ER. Will recheck level. (2) Productive cough: Possibly after aspiration after vomiting last week, possibly recovering after acute viral illness, flu RSV and COVID are negative. Check broader viral panel. Possible cough related to mitral valve regurgitation. (3) Acute hypokalemia: Supplemented. Recheck level. (4) Hypermagnesemia: (5) Elevated d-dimer: Abnormal D-dimer but no PE on CTA. D-dimer bilaterally likely secondary to CKD. Plan Sclerotic vertebral lesion (possible malignancy/metastasis) : Incidental finding of 9x9 mm sclerotic focus on right T3 vertebral body, non-specific. Possible concern for metastasis, although no history of known malignancy. Follow-up with primary provider for additional evaluation. - Consider MRI spine and/or nuclear medicine bone scan for further evaluation of vertebral lesion. MRI performed have to be done at outside facility due to presence of PPM/ICD. Severe mitral regurgitation, requesting records from [facility] with regards to workup there and consideration of mitral clipping. Severe pulmonary hypertension, related to valvular heart disease and diastolic dysfunction. Aortic stenosis s/p TAVR, continue aspirin, Plavix Congestive heart failure, with component of acute diastolic heart failure, IV diuresis as above, monitor electrolytes, reassess. Monitor for risk of further hypokalemia, renal dysfunction. Monitor intake and output. Chronic kidney disease, appears to be close to baseline. Reassess renal function. Anemia, transient ischemic attack, continue aspirin, Plavix, statin. Abdominal aortic aneurysm, hyperlipidemia, continue antiplatelets and statin. Bradycardia (with pacemaker), GERD, PPI Coronary artery disease with three stents. Continue to have platelets, statin, not on beta-leanne, possibly secondary to bradycardia. PDMP PDMP Reviewed: Not Reviewed Attestations Medical Necessity Statement*: Place in observation for additional assessment of fatigue, generalized weakness, and gentleman with recently worsening severe mitral regurgitation, pulmonary hypertension, advanced age, electrolyte deficiency and High MDM includes amount and/or complexity of data reviewed/ordered [ previous or external records, resulted lab(s)/test(s), ordered lab(s)/test(s) and other healthcare professional discussion] and described risk of complication, morbidity or mortality of management as documented Diagnoses Fatigue R53.83 Productive cough R05.8 Acute hypokalemia E87.6 Hypermagnesemia E83.41 Elevated d-dimer R79.89
[2024-09-01] MEDS: lidocaine 1% 5 ML in potassium chloride premix 100 ML 25 ML IV (13:10)
--- NOTE | 2024-09-01 14:21 | PC.NURSE ---
Provider is updated that Mr Diaz, he is refusing enoxaparin. He states I am on blood thinner already . He is on aspirin and plavix. He said that he would not take that medication.
[2024-09-01 15:04] LABS: Adenovirus Not Detected (NOT DETECT); Chlamydia Pneumoniae Not Detected (NOT DETECT); Coronavirus 229E,HKU1,NL63,OC4 Not Detected (NOT DETECT); Human Metapneumovirus Not Detected (NOT DETECT); Human Rhinovirus/Enterovirus Not Detected (NOT DETECT); Influenza A Not Detected (NOT DETECT); Influenza A H1 Not Detected (NOT DETECT); Influenza A H1-2009 Not Detected (NOT DETECT); Influenza A H3 Not Detected (NOT DETECT); Influenza B Not Detected (NOT DETECT); Mycoplasma Pneumoniae Not Detected (NOT DETECT); Parainfluenza Virus Type 1 Not Detected (NOT DETECT); Parainfluenza Virus Type 2 Not Detected (NOT DETECT); Parainfluenza Virus Type 3 Not Detected (NOT DETECT); Parainfluenza Virus Type 4 Not Detected (NOT DETECT); Respiratory Syncytial Virus A Not Detected (NOT DETECT); Respiratory Syncytial Virus B Not Detected (NOT DETECT); SARS-COV-2 Not Detected (NOT DETECT)
[2024-09-01] MEDS: acetaminophen 325 mg Tablet 650 MG PO (16:40)
[2024-09-01] MEDS: guaiFENesin 600 mg Tablet PO (16:40)
[2024-09-01] MEDS: budesonide 0.5 mg/2 mL Neb 0.25 MG INHALATION (20:07)
[2024-09-01] MEDS: ipratropium-albuterol 3 mL Neb INHALATION (20:07)
[2024-09-02] VITALS: BP 103/55; PULSE 71; RESP 18; TEMP 36.9; O2SAT 92
[2024-09-02 04:00] VITALS: BP 117/69; PULSE 71; RESP 23; TEMP 36.8; O2SAT 95
[2024-09-02 05:22] LABS: Basophils # 0.1 10^3/uL (0.0-0.1); Basophils % 0.9 %; Eosinophils % 0.3 %; Lymphocytes # 0.3 10^3/uL (0.8-4.8); Lymphocytes % 3.9 %; Mean Corpuscular HGB Conc 32.3 g/dL (30-55); Mean Corpuscular Hemoglobin 28.9 pg (27-33); Mean Corpuscular Volume 89.5 fl (82-101); Monocytes # 0.9 10^3/uL (0.2-0.9); Monocytes % 14.1 %; Neutrophils # 5.38 10^3/uL (1.8-7.7); Neutrophils % 80.5 %; Nucleated Red Blood Cells % 0 %; Platelet Count 110 10^3/cmm (157-399); Red Blood Count 3.91 10^6/uL (3.85-5.65); Red Cell Distribution Width 18.9 % (12.1-15.1); White Blood Count 6.68 10^3/uL (3.29-11.43)
[2024-09-02 05:40] LABS: Alanine Aminotransferase 17 U/L (0-41); Albumin Level 3.4 g/dL (3.5-5.2); Alkaline Phosphatase 118 U/L (40-130); Anion Gap 17.9 (5-19); Aspartate Amino Transferase 26 U/L (0-40); Blood Urea Nitrogen 40 mg/dL (8-23); Calcium 8.5 mg/dL (8.5-10.5); Carbon Dioxide 24 mmol/L (22-29); Chloride 93 mmol/L (98-107); Creatinine Clr Calc Pharmacy 26.8074; Globulin 2.6 g/dL (1.3-4.6); Glucose 107 mg/dL (65-115); Osmolality Calculated 284 mOsm/kg (285-295); Sodium 132 mmol/L (136-145)
[2024-09-02 05:47] LABS: Potassium 2.9 mmol/L (3.5-5.1)
[2024-09-02 08:00] VITALS: BP 106/66; PULSE 60; RESP 16; TEMP 36.5; O2SAT 90
[2024-09-02] MEDS: potassium chloride ER 20 mEq Tablet 40 MEQ PO (08:26)
[2024-09-02] MEDS: guaiFENesin 600 mg Tablet PO (08:26)
--- NOTE | 2024-09-02 08:27 | P.DS_ITS ---
Discharge Providers Date of Admission: 09/01/24 12:06 Date of Discharge: September 02, 2024 Attending Provider at Admission: Sanjeev Fry Attending Provider at Discharge: Sanjeev Fry Primary Care Provider: Cayla Perea MD Diagnoses at Discharge Discharge Diagnosis (1) Fatigue: Status: Acute (2) Productive cough: Status: Acute (3) Acute hypokalemia: Status: Acute (4) Hypermagnesemia: Status: Acute (5) Elevated d-dimer: Status: Acute Reason for Visit Reason for Visit: weakness flu like symptoms Brief History: Roland (Ant Diaz is a 88 year very pleasant, hard of hearing gentleman with a history of severe mitral regurgitation, severe pulmonary hypertension, aortic stenosis, congestive heart failure, chronic kidney disease, anemia, transient ischemic attack, abdominal aortic aneurysm, hyperlipidemia, bioprosthetic aortic valve, paroxysmal pulmonary hypertension, bradycardia (with pacemaker), GERD, and coronary artery disease with three stents, presenting with weakness and flu-like symptoms. The patient was recently hospitalized in May for CHF exacerbation, treated with IV diuretics. He has had increased shortness of breath, fatigue, malaise, and weight gain. He reports a week of cough productive of phlegm, no runny nose, no fever or headache, but some body aches due to cold. He had a couple of episodes of vomiting last week, no significant diarrhea, but one episode of incontinence. He experiences dizziness and balance issues when walking, uses a cane for longer distances, and denies chest pain, pressure, or leg swelling. He lives with his niece and her children. Recent cardiology evaluation for mitral regurgitation included two tests at [facility], but he has not yet received results or a follow-up appointment. In the ED, he was found to have hypokalemia, hypermagnesemia, elevated creatinine, and required oxygen (2->4L). COVID, flu, and RSV tests were negative. Elevated D-dimer. Received hydration, CTA imaging showed no pneumonia or PE, but noted cardiomegaly and a sclerotic vertebral lesion. He received IV Lasix and potassium in the ED. He has had productive cough, although phlegm has been subsiding. Request for observation hospitalization due to symptomatic fatigability and increased oxygen requirement. Hospital Course Hospital Course He received treatment with IV diuresis, with improvement in oxygenation, weaned off oxygen to room air. Most of his symptoms coming from acute congestive heart failure and these have resolved. He is continued on diuretic after discharge. Home oxygen evaluation was obtained, and he did not qualify. Subjectively he w as improving. Cough improving. Sputum culture was requested and obtained prior to discharge. He will continue expectorants with flutter valve and is set up with a brief course of antibiotic with azithromycin. Once bronchitis/prolonged recovery after pneumonia is improved he may proceed to mitral valve repair. CT angiogram chest did not show PE, showed cardiomegaly. Incidentally showed a 9 x 9 mm sclerotic focus in right T3 vertebral body. Please follow-up. Physical Exam Narrative: Very pleasant. Very hard of hearing. Const: COMMON NORMALS: patient oriented x3 and alert GENERAL APPEARANCE: cooperative ORIENTATION/CONSCIOUSNESS: Yes awake HENMT: COMMON NORMALS: oropharynx normal Resp: COMMON NORMALS: normal respiratory effort and clear to auscultation bilaterally AUSCULTATION: clear to auscultation bilaterally Cardio: COMMON NORMALS: regular rhythm RHYTHM: regular rhythm HEART SOUNDS: Murmur heart sound present systolic Location: apex and left sternal border GI: COMMON NORMALS: Normal to inspection, nondistended, normoactive bowel sounds present, Soft to palpation and non-tender PALPATION: Yes Soft to palpation Extremity: COMMON NORMALS: no joint enlargement and no pedal edema Neuro: COMMON NORMALS: patient oriented x3 and moves all extremities SENSORIUM/ORIENTATION: Yes alert Skin: COMMON NORMALS: no rashes or lesions noted GENERAL SKIN EXAM: no rashes or lesions noted Discharge Data Studies Completed and Pending Completed Studies During Hospitalization Category Date Time Status CT angio chest PE protcl [id number] Stat Cat Scan 09/01/24 08:58 Completed XR chest 1V portable [id number] Stat Exams 09/01/24 06:48 Completed Pending at discharge Category Date Time Status Complete Blood Count w/Auto AM LABS Lab 09/03/24 04:00 Ordered Complete Blood Count w/Auto AM LABS Lab 09/04/24 04:00 Ordered Comprehensive Metabolic Panel AM LABS Lab 09/03/24 04:00 Ordered Comprehensive Metabolic Panel AM LABS Lab 09/04/24 04:00 Ordered Sputum Culture and Gram Stain Routine Lab 09/02/24 08:24 Uncollected Radiology Impressions Chest X-Ray 09/01/24 06:48 Impression: 1. Cardiomegaly and artificial heart valve. 2. Permanent cardiac pacemaker and atherosclerosis. Chest CTA 09/01/24 08:58 IMPRESSION: 1. Pulmonary edema/CHF. 2. No filling defects suspicious for PE. 3. Cardiomegaly. No pericardial fluid. Severe three-vessel coronary artery disease. Note made of reflux of contrast into the IVC and hepatic veins in keeping with right heart dysfunction. 4. 9 x 9 mm sclerotic focus in right T3 vertebral body. Nonspecific. If there is history of malignancy, suspicious for osseous metastatic disease until proven otherwise. Recommend clinical correlation. Consider MRI thoracic spine and/or nuclear medicine bone scan for complete evaluation of the osseous structures. Laboratory Results WBC 6.68 10^3/uL (3.29-11.43) 09/02/24 04:55 RBC 3.91 10^6/uL (3.85-5.65) 09/02/24 04:55 Hgb 11.30 g/dL (11.27-16.99) 09/02/24 04:55 Hct 35.0 % (37-53) L 09/02/24 04:55 MCV 89.5 fl (82-101) 09/02/24 04:55 MCH 28.9 pg (27-33) 09/02/24 04:55 MCHC 32.3 g/dL (30-55) 09/02/24 04:55 RDW 18.9 % (12.1-15.1) H 09/02/24 04:55 Plt Count 110 10^3/cmm (157-399) L 09/02/24 04:55 MPV 10.0 fL (7.4-10.4) 09/02/24 04:55 Neut % (Auto) 80.5 % 09/02/24 04:55 Lymph % (Auto) 3.9 % 09/02/24 04:55 [place] % (Auto) 14.1 % 09/02/24 04:55 Eos % (Auto) 0.3 % 09/02/24 04:55 Baso % (Auto) 0.9 % 09/02/24 04:55 Neut # (Auto) 5.38 10^3/uL (1.8-7.7) 09/02/24 04:55 Lymph # (Auto) 0.3 10^3/uL (0.8-4.8) L 09/02/24 04:55 [place] # (Auto) 0.9 10^3/uL (0.2-0.9) 09/02/24 04:55 Eos # (Auto) 0.0 10^3/uL (0.0-0.8) 09/02/24 04:55 Baso # (Auto) 0.1 10^3/uL (0.0-0.1) 09/02/24 04:55 Nucleated RBC % (auto) 0 % 09/02/24 04:55 Nucleated RBCs # 0.0 /100WBC 09/02/24 04:55 D-Dimer 3.29 ug/mLFEU (0-0.59) H 09/01/24 07:04 Sodium 132 mmol/L (136-145) L 09/02/24 04:55 Potassium 2.9 mmol/L (3.5-5.1) L 09/02/24 04:55 Chloride 93 mmol/L (98-107) L 09/02/24 04:55 Carbon Dioxide 24 mmol/L (22-29) 09/02/24 04:55 Anion Gap 17.9 (5-19) 09/02/24 04:55 BUN 40 mg/dL (8-23) H 09/02/24 04:55 Creatinine 2.1 mg/dL (0.7-1.2) H 09/02/24 04:55 GFR Calculation Not Reportable 09/02/24 04:55 Glucose 107 mg/dL (65-115) 09/02/24 04:55 Calculated Osmolality 284 mOsm/kg (285-295) L 09/02/24 04:55 Calcium 8.5 mg/dL (8.5-10.5) 09/02/24 04:55 Magnesium 2.5 mg/dL (1.7-2.3) H 09/01/24 07:04 Total Bilirubin 1.0 mg/dL (0.15-1.2) 09/02/24 04:55 AST 26 U/L (0-40) 09/02/24 04:55 ALT 17 U/L (0-41) 09/02/24 04:55 Alkaline Phosphatase 118 U/L (40-130) 09/02/24 04:55 Total Protein 6.0 g/dL (6.6-8.7) L 09/02/24 04:55 Albumin 3.4 g/dL (3.5-5.2) L 09/02/24 04:55 Globulin 2.6 g/dL (1.3-4.6) 09/02/24 04:55 Urine Color Yellow (Yellow) 09/01/24 08:12 Urine Appearance Clear (CLEAR) 09/01/24 08:12 Urine pH 7.0 (5-7) 09/01/24 08:12 Ur Specific [place] 1.008 (1.005-1.030) 09/01/24 08:12 Urine Protein Negative (Negative) 09/01/24 08:12 Urine Glucose (UA) Negative (Normal) 09/01/24 08:12 Urine Ketones Negative (Negative) 09/01/24 08:12 Urine Blood Negative (Negative) 09/01/24 08:12 Urine Nitrate Negative (Negative) 09/01/24 08:12 Urine Bilirubin Negative (Negative) 09/01/24 08:12 Urine Urobilinogen 1.0 mg/dL (Negative) 09/01/24 08:12 Ur Leukocyte Esterase Negative (Negative) 09/01/24 08:12 Urine RBC 0-2 /hpf (0-2) 09/01/24 08:12 Urine WBC 0-5 /hpf (0-5) 09/01/24 08:12 Ur Squamous Epith Cells 0-5 /hpf (0-5) 09/01/24 08:12 Amorphous Sediment Not Reportable 09/01/24 08:12 Urine Bacteria None seen /hpf (NONE) 09/01/24 08:12 Hyaline Casts 0-4 /lpf H 09/01/24 08:12 Adenovirus (PCR) Not detected (NOT DETECT) 09/01/24 12:48 C. pneumoniae DNA (PCR) Not detected (NOT DETECT) 09/01/24 12:48 Coronavirus 229E (PCR) Not detected (NOT DETECT) 09/01/24 12:48 Human Metapneumovir PCR Not detected (NOT DETECT) 09/01/24 12:48 Influenza A (H1) PCR Not detected (NOT DETECT) 09/01/24 12:48 Influenza A (PCR) Negative (Negative) 09/01/24 07:08 Influ A (H1/09) PCR Not detected (NOT DETECT) 09/01/24 12:48 Influenza A (H3) PCR Not detected (NOT DETECT) 09/01/24 12:48 Influenza Type A (PCR) Not detected (NOT DETECT) 09/01/24 12:48 Influenza Type B (PCR) Not detected (NOT DETECT) 09/01/24 12:48 M. pneumoniae (PCR) Not detected (NOT DETECT) 09/01/24 12:48 Parainfluenza 1 (PCR) Not detected (NOT DETECT) 09/01/24 12:48 Parainfluenza 2 (PCR) Not detected (NOT DETECT) 09/01/24 12:48 Parainfluenza 3 (PCR) Not detected (NOT DETECT) 09/01/24 12:48 Parainfluenza 4 (PCR) Not detected (NOT DETECT) 09/01/24 12:48 RSV (PCR) Negative (Negative) 09/01/24 07:08 RSV Type A (PCR) Not detected (NOT DETECT) 09/01/24 12:48 RSV Type B (PCR) Not detected (NOT DETECT) 09/01/24 12:48 Entero/Rhino (PCR) Not detected (NOT DETECT) 09/01/24 12:48 SARS-CoV-2 (PCR) Not detected (NOT DETECT) 09/01/24 12:48 Vitals Last Vital Signs Temp 97.7 F 09/02/24 08:00 Pulse 60 09/02/24 08:00 Resp 16 09/02/24 08:00 BP 106/66 09/02/24 08:00 Pulse Ox 90 09/02/24 08:00 O2 Del Method Room Air 09/02/24 08:00 O2 Flow Rate 2 09/01/24 16:00 Discharge Plan Discharge Patient Disposition: Home Condition: Stable Prescriptions: New guaifenesin [Mucinex] 600 mg Tablet Extended Release 12hr 600 mg PO BID Qty: 60 0RF dextromethorphan-guaifenesin [Robitussin Cough-[place] DM] 5-100 mg/5 mL liquid 20 ml PO Q8H PRN (Reason: cough) Qty: 500 0RF azithromycin 500 mg tablet See Rx Instructions .ROUTE .COMPLEX Qty: 3 0RF Rx Instructions: For 500 mg dose pack: take 500 mg once daily for 3 days Continued docusate sodium [Colace] 100 mg capsule 100 mg PO BID fexofenadine 60 mg tablet 60 mg PO BID aspirin 81 mg tablet,delayed release (DR/EC) 81 mg PO DAILY nitroglycerin [Nitrostat] 0.4 mg tablet, sublingual 0.4 mg SUBLINGUAL Q5M PRN (Reason: Chest Pain) Qty: 25 3RF clopidogrel 75 mg tablet 75 mg PO DAILY Qty: 90 3RF amiodarone 200 mg tablet 200 mg PO DAILY Qty: 90 3RF ferrous sulfate 325 mg (65 mg iron) tablet 325 mg PO DAILY Qty: 30 3RF Rx Instructions: with breakfast pantoprazole 40 mg tablet,delayed release (DR/EC) 40 mg PO DAILY Qty: 90 3RF tamsulosin 0.4 mg capsule 0.4 mg PO DAILY Qty: 90 3RF finasteride 5 mg tablet 5 mg PO DAILY Qty: 90 3RF midodrine 10 mg tablet See Rx Instructions .ROUTE .COMPLEX Qty: 30 6RF Dose Instruction: TAKE 1 TABLET BY MOUTH THREE TIMES DAILY NEEDED FOR low blood pressure, DO not give last DOSE of DAY AFTER 6pm or WITHIN FOUR hours of bedtime. Rx Instructions: TAKE 1 TABLET BY MOUTH THREE TIMES DAILY NEEDED FOR low blood pressure, DO not give last DOSE of DAY AFTER 6pm or WITHIN FOUR hours of bedtime. ascorbic acid (vitamin C) [Vitamin C] 1,000 mg Tablet 1,000 mg PO DAILY vitamin B complex Tablet 1 tab PO DAILY cholecalciferol (vitamin D3) [Vitamin D3] 25 mcg (1,000 unit) Tablet 25 mcg PO DAILY calcium 26-magnesium 15-zinc 167 mg calcium- 83 mg-5 mg Capsule 1 cap PO DAILY furosemide [Lasix] 40 mg tablet 40 mg PO QDAY Qty: 90 0RF vitamin A 2,400 mcg Capsule 2,400 mcg PO DAILY dextromethorphan polistirex [Children's Delsym Cough] 30 mg/5 mL suspension,extended rel 12 hr 10 ml PO BID PRN (Reason: Cough) fluticasone propionate 50 mcg/actuation spray,suspension 1 spray INTRANASAL DAILY atorvastatin 40 mg tablet 40 mg PO QPM potassium chloride 10 mEq tablet extended release 10 meq PO QID lactulose 10 gram/15 mL solution 20 g PO BID PRN (Reason: Constipation) Discharge Orders: Discharge Order (Routine); Ordered 09/02/24 Ordered By: Sanjeev Fry Referrals: Cayla Perea MD [Primary Care Provider, [facility]] - 09/07/24 9:30 am Discharge Diet: Cardiac Patient Instructions: Azithromycin (By mouth), Dextromethorphan/Guaifenesin/P henylephrine (By mouth), Fatigue, Weakness (DC), Acute Cough (GEN), Opioid Safety, Pain Management Activity Restrictions/Additional Instructions: Please follow-up with your primary doctor for reassessment after bronchitis, to confirm recovery and consider when it may be safe for you to progress to the repair of the leaking mitral valve at [facility]. Oxygen test is requested. Prior to discharge, in case it is found that you need oxygen, please wear it as instructed. As discussed, seek medical attention in case of any worsening or new concerning symptoms. Discharge Attestations Time Spent in Discharge Care*: greater than 30 min Status at Discharge: Cognitive status at discharge: cognitively intact , Behavioral status at discharge: cooperative , Quality Metrics Clinical Quality Measures [ No reported AMI, CVA or VTE this stay] Coding Level of Care Code 21084 Total time (in minutes) for Discharge: 35 Diagnoses Fatigue R53.83 Productive cough R05.8 Acute hypokalemia E87.6 Hypermagnesemia E83.41 Elevated d-dimer R79.89
[2024-09-02] MEDS: ipratropium-albuterol 3 mL Neb INHALATION (09:13)
[2024-09-02] MEDS: budesonide 0.5 mg/2 mL Neb 0.25 MG INHALATION (09:13)
[2024-09-02 09:14] VITALS: PULSE 60; RESP 16; O2SAT 99
[2024-09-02 09:33] VITALS: O2SAT 97; O2SAT 98
[2024-09-02 10:49] VITALS: BP 106/59; PULSE 71; RESP 20; O2SAT 94
== END 2024-09-02 11:17 | disposition home or self-care (01) ==
LOC: ER 10:34 → CSU 11:28
PROVIDERS: Admitting Provider Internal Medicine; Emergency Provider Family Medicine; PCP Family Medicine; Visit Provider Internal Medicine
DX: R05.8 Other specified cough (principal); R53.83 Other fatigue; E78.6 Lipoprotein deficiency; E83.41 Hypermagnesemia; R79.89 Other specified abnormal findings of blood chemistry; K21.9 Gastro-esophageal reflux disease without esophagitis; Z79.82 Long term (current) use of aspirin; Z95.0 Presence of cardiac pacemaker; Z86.79 Personal history of other diseases of the circulatory system; I13.0 Hypertensive heart and chronic kidney disease with heart failure and stage 1 through stage 4 chronic kidney disease, or unspecified chronic kidney disease; N18.30 Chronic kidney disease, stage 3 unspecified; I50.9 Heart failure, unspecified; E78.5 Hyperlipidemia, unspecified; E03.9 Hypothyroidism, unspecified; Z95.5 Presence of coronary angioplasty implant and graft; Z82.49 Family history of ischemic heart disease and other diseases of the circulatory system; Z86.73 Personal history of transient ischemic attack (TIA), and cerebral infarction without residual deficits
CPT/HCPCS: 36415; 71045; 71275; 80053; 81001; 83735; 85025; 85378; 87070; 87205; 87486; 87581; 87633; 87637; 93005; 94640; 94760; 96365; 96366; 96375; 96376; 99285; A9270; G0378; J1650; J1938; J3480; J7030; J7626; J9999

== ENCOUNTER → 2024-09-07 10:34 | Outpatient (BNVA) | payer MEDICARE, SELFPAY | PROVIDERS: PCP Family Medicine; Visit Provider Family Medicine | DX: N18.9 Chronic kidney disease, unspecified (principal); I10 Essential (primary) hypertension | CPT/HCPCS: 80053; 85025 ==

== ENCOUNTER → 2024-09-19 14:40 | Outpatient (BNVA) | payer MEDICARE, SELFPAY | PROVIDERS: PCP Family Medicine; Visit Provider Family Medicine | DX: I50.22 Chronic systolic (congestive) heart failure (principal); I34.0 Nonrheumatic mitral (valve) insufficiency | CPT/HCPCS: 80053; 85025 ==

== ENCOUNTER 2024-09-20 13:07 | Emergency (ER) | payer MEDICARE, SELFPAY ==
--- NOTE | 2024-09-20 13:11 | W.ED.GENADLT ---
HPI - General Adult General: Chief complaint: Syncope Stated complaint: Syncope Time Seen by Provider: 09/20/24 13:07 Source: patient Mode of arrival: ambulatory Limitations: no limitations History of Present Illness: 88-year-old male here with EMS states that he has been located states that he doubled up on his meds and was on the toilet trying to have bowel movement and passed out. Patient did not hit his head he states he is feeling fine EMS states he had a pacemaker and was bradycardic when they first arrived. He denies any vomiting denies any chest pain. Associated symptoms: Reports syncope; Deny chest pain, dyspnea, headache(s), nausea, rash or vomiting Related Data Home Medications ?Medication ?Instructions ?Recorded ?Confirmed docusate sodium 100 mg capsule 100 mg PO BID Constipation 04/05/19 09/20/24 (Colace) ascorbic acid (vitamin C) 1,000 mg 1,000 mg PO DAILY 11/06/20 09/20/24 tablet (Vitamin C) aspirin 81 mg tablet,delayed 81 mg PO DAILY 06/03/24 09/20/24 release calcium no.26 167 mg-magnesium 1 cap PO DAILY 06/17/24 09/20/24 no.15 83 mg-zinc 5 mg capsule cholecalciferol (vitamin D3) 25 25 mcg PO DAILY 06/17/24 09/20/24 mcg (1,000 unit) tablet (Vitamin D3) vitamin B complex 1 tab PO DAILY 06/17/24 09/20/24 fexofenadine 60 mg tablet 60 mg PO BID 07/13/24 09/20/24 atorvastatin 40 mg tablet 40 mg PO QPM 09/01/24 09/20/24 fluticasone propionate 50 1 spray intranasal DAILY 09/01/24 09/20/24 mcg/actuation nasal spray,suspension lactulose 10 gram/15 mL oral 20 g PO BID PRN Constipation 09/01/24 09/20/24 solution vitamin A 2,400 mcg capsule 2,400 mcg PO DAILY 09/01/24 09/20/24 potassium chloride 10 mEq 10 meq PO QID 09/20/24 09/20/24 tablet,extended release Previous Rx's ?Medication ?Instructions ?Recorded ferrous sulfate 325 mg (65 mg 325 mg PO DAILY #30 tabs 01/08/23 iron) tablet pantoprazole 40 mg tablet,delayed 40 mg PO DAILY #90 tabs 07/30/23 release tamsulosin 0.4 mg capsule 0.4 mg PO DAILY #90 caps 08/26/23 nitroglycerin 0.4 mg sublingual 0.4 mg sublingual Q5M PRN Chest 12/22/23 tablet (Nitrostat) Pain #25 tabs finasteride 5 mg tablet 5 mg PO DAILY #90 tabs 03/21/24 amiodarone 200 mg tablet 200 mg PO DAILY for rhythm #90 tabs 05/09/24 clopidogrel 75 mg tablet 75 mg PO DAILY #90 tabs 05/09/24 furosemide 40 mg tablet (Lasix) 40 mg PO QDAY edema #90 tabs 06/20/24 midodrine 10 mg tablet See Rx Instructions .Route 06/21/24 .COMPLEX #30 tabs dextromethorphan-guaifenesin 5 20 ml PO Q8H PRN cough #500 mL 09/02/24 mg-100 mg/5 mL oral liquid (Robitussin Cough-Chest Congestion DM) guaifenesin 600 mg tablet, 600 mg PO BID #60 tabs 09/02/24 extended release 12 hr (Mucinex) Allergies Allergy/AdvReac Type Severity Reaction Status Date / Time loratadine Allergy ADR-Itching Verified 09/19/24 13:39 Review of Systems Const: Denies: fever(s), chills, body aches or change in appetite ENMT: Denies: throat pain or dental pain Card: Reports: syncope; Denies: chest pain Resp: Denies: dyspnea GI: Reports: constipation; Denies: abdominal pain, nausea, vomiting or diarrhea Musc: Denies: neck pain or back pain Skin/Breast: Denies: rash Neuro: Denies: headache(s) PFSH ED PFSH: Medical History Positive cardiac stress test Severe mitral regurgitation 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 Aortic stenosis Ventricular tachycardia Status post AICD placement Stage 3 chronic kidney disease 1.7-2.1 baseline creatinine Essential hypertension CHF (congestive heart failure) Echocardiogram 09/13: LVEF 55-60%, mod mitral regurg, mod pulm HTN Hyperlipidemia Anemia iron deficient Hypothyroidism Vitamin B12 deficiency Allergic rhinitis Insomnia ASHD (arteriosclerotic heart disease) Ischemic cardiomyopathy BPH (benign prostatic hyperplasia) Gynecomastia, male Acute kidney injury superimposed on chronic kidney disease Abdominal aortic aneurysm (AAA) 4.3?4.3 approximately 5.04?5.04 distally Peripheral neuropathy History of nonmelanoma skin cancer Claudication of both lower extremities Pulmonary HTN Bradycardia Heart block atrioventricular Prostate cancer SVT (supraventricular tachycardia) Cognitive dysfunction GERD (gastroesophageal reflux disease) TIA (transient ischemic attack) Surgical History Fracture of left hip requiring operative repair S/P TAVR (transcatheter aortic valve replacement) S/P angioplasty with stent Coronary disease status post 3 stents Status post endovascular aneurysm repair (EVAR) S/P implantation of automatic cardioverter/defibrillator (AICD) [facility] 08/07 Family History Father CAD (coronary artery disease) Mother CAD (coronary artery disease) Congestive heart failure (CHF) Brother Parkinson disease Sister Fibromyalgia Other Cancer Social History Smoking and tobacco/nicotine status: never used tobacco/nicotine Alcohol intake: never Substance/Drug Use: never Lives independently: Yes Marital status: / service: No Current occupational status: retired Current gender identity: Male Gillian/Taoist: Ep[employer] Physical Exam Const: COMMON NORMALS: patient oriented x3 HENMT: COMMON NORMALS: normocephalic and atraumatic HEAD & SCALP: normocephalic and atraumatic Eye: COMMON NORMALS: conjunctivae normal CONJUNCTIVA: Yes conjunctivae normal Neck/C-Spine: COMMON NORMALS: full ROM and supple Chest: COMMONS NORMALS: normal inspection of the chest and normal palpation of entire chest wall Resp: COMMON NORMALS: normal respiratory effort, No retractions, No use of accessory muscles and clear to auscultation bilaterally AUSCULTATION: clear to auscultation bilaterally Cardio: COMMON NORMALS: regular rhythm RHYTHM: regular rhythm HEART SOUNDS: Murmur heart sound present systolic GI: COMMON NORMALS: Normal to inspection, nondistended, normoactive bowel sounds present, Soft to palpation, non-tender and no masses PALPATION: Yes Soft to palpation Extremity: COMMON NORMALS: normal to inspection and full ROM Neuro: COMMON NORMALS: patient oriented x3, moves all extremities and no focal motor deficits Psych: COMMON NORMALS: mental status grossly normal, Normal thought process present and cooperative THOUGHT PROCESS: Normal thought process present Skin: COMMON NORMALS: no rashes or lesions noted and no wounds GENERAL SKIN EXAM: no rashes or lesions noted Course Vital Signs: Vital signs: Vital Signs Temperature 97.7 F 09/20/24 13:13 Pulse Rate 61 09/20/24 15:08 Respiratory Rate 15 09/20/24 13:13 Blood Pressure 107/69 09/20/24 15:08 Pulse Oximetry 94 09/20/24 15:08 Oxygen Delivery Me thod Room Air 09/20/24 13:13 MDM - General Adult Medical Decision Making Patient presents after syncopal event likely vagal episode while in the bathroom he had some bradycardia he is hypokalemic I strongly recommend admission he states that he has been on potassium pill and does not want to stay in the hospital did give him extra dose of potassium here is to follow-up with PCP return if worsening. Medical Records I reviewed the patient's medical records. Lab Data I reviewed the patient's lab results. 09/20/24 12:50 09/20/24 12:50 Radiology Impressions Chest X-Ray 09/20/24 13:24 IMPRESSION: Congestive heart failure as above. Laboratory Results WBC 5.00 10^3/uL (3.29-11.43) 09/20/24 12:50 RBC 3.94 10^6/uL (3.85-5.65) 09/20/24 12:50 Hgb 11.60 g/dL (11.27-16.99) 09/20/24 12:50 Hct 35.8 % (37-53) L 09/20/24 12:50 MCV 90.9 fl (82-101) 09/20/24 12:50 MCH 29.4 pg (27-33) 09/20/24 12:50 MCHC 32.4 g/dL (30-55) 09/20/24 12:50 RDW 20.4 % (12.1-15.1) H 09/20/24 12:50 Plt Count 111 10^3/cmm (157-399) L 09/20/24 12:50 MPV 9.7 fL (7.4-10.4) 09/20/24 12:50 Neut % (Auto) 73.6 % 09/20/24 12:50 Lymph % (Auto) 7.0 % 09/20/24 12:50 M[place] % (Auto) 16.4 % 09/20/24 12:50 Eos % (Auto) 1.4 % 09/20/24 12:50 Baso % (Auto) 1.4 % 09/20/24 12:50 Neut # (Auto) 3.68 10^3/uL (1.8-7.7) 09/20/24 12:50 Lymph # (Auto) 0.4 10^3/uL (0.8-4.8) L 09/20/24 12:50 [place] # (Auto) 0.8 10^3/uL (0.2-0.9) 09/20/24 12:50 Eos # (Auto) 0.1 10^3/uL (0.0-0.8) 09/20/24 12:50 Baso # (Auto) 0.1 10^3/uL (0.0-0.1) 09/20/24 12:50 Nucleated RBC % (auto) 0 % 09/20/24 12:50 Nucleated RBCs # 0.0 /100WBC 09/20/24 12:50 Sodium 136 mmol/L (136-145) 09/20/24 12:50 Potassium 2.7 mmol/L (3.5-5.1) L* 09/20/24 12:50 Chloride 93 mmol/L (98-107) L 09/20/24 12:50 Carbon Dioxide 26 mmol/L (22-29) 09/20/24 12:50 Anion Gap 19.7 (5-19) H 09/20/24 12:50 BUN 49 mg/dL (8-23) H 09/20/24 12:50 Creatinine 1.9 mg/dL (0.7-1.2) H 09/20/24 12:50 GFR Calculation Not Reportable 09/20/24 12:50 Glucose 136 mg/dL (65-115) H 09/20/24 12:50 Calculated Osmolality 297 mOsm/kg (285-295) H 09/20/24 12:50 Calcium 9.1 mg/dL (8.5-10.5) 09/20/24 12:50 Magnesium 2.6 mg/dL (1.7-2.3) H 09/20/24 12:50 Total Bilirubin 1.4 mg/dL (0.15-1.2) H 09/20/24 12:50 AST 32 U/L (0-40) 09/20/24 12:50 ALT 20 U/L (0-41) 09/20/24 12:50 Alkaline Phosphatase 130 U/L (40-130) 09/20/24 12:50 NT-Pro-B Natriuret Pep 75287 pg/mL (0-450) H 09/20/24 12:50 Total Protein 6.8 g/dL (6.6-8.7) 09/20/24 12:50 Albumin 3.6 g/dL (3.5-5.2) 09/20/24 12:50 Globulin 3.2 g/dL (1.3-4.6) 09/20/24 12:50 All radiology interpretation(s) finalized by discharge EKG Data EKG 1: I personally reviewed and interpreted this EKG as follows: EKG interpretation date: 09/20/24 EKG interpretation time: 13:20 Computer generated interpretation: Chest X-Ray 09/20/24 13:24 IMPRESSION: Congestive heart failure as above. bradycardia hr [address] elevation qrs 210 qtc 487 Discharge Plan Discharge Patient Disposition: Home Clinical Impression: Syncope, Hypokalemia Condition: Stable Prescriptions: No Action docusate sodium [Colace] 100 mg capsule 100 mg PO BID fexofenadine 60 mg tablet 60 mg PO BID aspirin 81 mg tablet,delayed release (DR/EC) 81 mg PO DAILY nitroglycerin [Nitrostat] 0.4 mg tablet, sublingual 0.4 mg SUBLINGUAL Q5M PRN (Reason: Chest Pain) Qty: 25 3RF clopidogrel 75 mg tablet 75 mg PO DAILY Qty: 90 3RF amiodarone 200 mg tablet 200 mg PO DAILY Qty: 90 3RF ferrous sulfate 325 mg (65 mg iron) tablet 325 mg PO DAILY Qty: 30 3RF Rx Instructions: with breakfast pantoprazole 40 mg tablet,delayed release (DR/EC) 40 mg PO DAILY Qty: 90 3RF tamsulosin 0.4 mg capsule 0.4 mg PO DAILY Qty: 90 3RF finasteride 5 mg tablet 5 mg PO DAILY Qty: 90 3RF midodrine 10 mg tablet See Rx Instructions .ROUTE .COMPLEX Qty: 30 6RF Dose Instruction: TAKE 1 TABLET BY MOUTH THREE TIMES DAILY NEEDED FOR low blood pressure, DO not give last DOSE of DAY AFTER 6pm or WITHIN FOUR hours of bedtime. Rx Instructions: TAKE 1 TABLET BY MOUTH THREE TIMES DAILY NEEDED FOR low blood pressure, DO not give last DOSE of DAY AFTER 6pm or WITHIN FOUR hours of bedtime. ascorbic acid (vitamin C) [Vitamin C] 1,000 mg Tablet 1,000 mg PO DAILY vitamin B complex Tablet 1 tab PO DAILY cholecalciferol (vitamin D3) [Vitamin D3] 25 mcg (1,000 unit) Tablet 25 mcg PO DAILY calcium 26-magnesium 15-zinc 167 mg calcium- 83 mg-5 mg Capsule 1 cap PO DAILY furosemide [Lasix] 40 mg tablet 40 mg PO QDAY Qty: 90 0RF vitamin A 2,400 mcg Capsule 2,400 mcg PO DAILY fluticasone propionate 50 mcg/actuation spray,suspension 1 spray INTRANASAL DAILY atorvastatin 40 mg tablet 40 mg PO QPM lactulose 10 gram/15 mL solution 20 g PO BID PRN (Reason: Constipation) guaifenesin [Mucinex] 600 mg Tablet Extended Release 12hr 600 mg PO BID Qty: 60 0RF dextromethorphan-guaifenesin [Robitussin Cough-Chest [place] DM] 5-100 mg/5 mL liquid 20 ml PO Q8H PRN (Reason: cough) Qty: 500 0RF potassium chloride 10 mEq tablet extended release 10 meq PO QID Discharge Orders: Discharge ED (Routine); Ordered 09/20/24 Ordered By: Horacio Carreon Referrals: Cayla Perea MD [Primary Care Provider, Family Practice] - 4-7 days Discharge Diet: Advance as tolerated Discharge Activity: Resume usual activity Patient Instructions: Hypokalemia (ED), Syncope (ED) Print Language: Mohawk Coding Level of Care Code ED Hvac Manager for Jose Carlos Omer
[2024-09-20 13:13] VITALS: BP 96/62; PULSE 50; RESP 15; TEMP 36.5; O2SAT 96; BMI 24.4
--- NOTE | 2024-09-20 13:20 | ECG_ITS ---
[facility] Test Date: 2024-09-20 Pat Name: Roland Diaz Department: Room: Gender: Male Specialty Sales Representative: : 1935 Requested By: Horacio Carreon Order Number: [id number] Kimberlee MD: Ceferino Arias M.D. Measurements Intervals [place] Rate: 52 P: 0 VA: 0 QRS: -50 QRSD: 210 T: 129 QT: 507 QTc: 473 Interpretive Statements ATRIAL FIBRILLATION WITH SLOW VENTRICULAR RESPONSE LEFT AXIS DEVIATION [QRS AXIS < -30] LEFT BUNDLE BRANCH BLOCK [120+ ms QRS DURATION, 80+ ms Q/S IN V1/V2, 85+ ms R IN I/aVL/V5/V6] Compared to ECG 09/01/2024 06:52:53 Left-axis deviation now present Left bundle-branch block now present Atrial flutter no longer present Right-axis deviation no longer present Intraventricular conduction delay no longer present Electronically Signed On 09-22-2024 09:02:15 CDT by Ceferino Arias M.D. [id number]
[2024-09-20 13:21] LABS: Hematocrit 35.8 % (37-53); Hemoglobin 11.60 g/dL (11.27-16.99); Mean Corpuscular HGB Conc 32.4 g/dL (30-55); Mean Corpuscular Hemoglobin 29.4 pg (27-33); Mean Corpuscular Volume 90.9 fl (82-101); Nucleated Red Blood Cells % 0 %; Platelet Count 111 10^3/cmm (157-399); Red Blood Count 3.94 10^6/uL (3.85-5.65); White Blood Count 5.00 10^3/uL (3.29-11.43)
--- OUTSIDE RECORDS SUMMARY | 2024-09-20 13:22 | XMS_ITS | Patient Health Record ---
Author Organization [facility] Address [address] [place] [address] [place] [id number] Care Team Providers Care Manufacturing Test Engineer Name Role Phone RaineJus marinelli Primary Care Provider Juan Parisi Unavailable [phone] Allergies Allergen (clinical drug ingredient) Drug/Non Drug Allergy documented on EMR Reaction Allergy Type Onset Date Status escitalopram Lexapro (uncoded) Unknown Allergy Active [place]and (uncoded) Unknown Allergy A ctive Reason For Referral No Information Medications Medication SIG (Take, Route, Frequency, Duration) Notes Start Date End Date Status Multivitamins as directed Orally Active Bicalutamide 50 MG 1 tablet Orally Once a day for 30 day(s) 05/24/2013 Active Vitamin C 500 MG as directed Orally Active CoQ-10 100 MG 1 capsule with a carlyn l Orally Once a day for 30 day(s) Active [place] 250 MG as directed Orally Active Testosterone Propionate 2 % as directed Transdermal Active B Complex as directed Orally A ctive Chrysaderm Day as directed Externally Active Keflex 500 MG 1 capsule Orally fou r times a day for 3 days 04/12/2013 Active [place] Thyroid 60 MG 1 tablet Orally Onc e a day for 30 day(s) Active Tamsulosin HCl 0.4 MG 1 capsule 30 minut es after the same meal each day Orally Once a day for 1 dose 02/11/2013 Active Zantac 150 MG 1 tablet Orally Twic e a day for 30 day(s) Active Krill Oil 1000 MG as directed Orally Active Toprol XL 25 MG 1 tablet Orally Once a day for 30 day(s) Active Stool Softener 100 MG 1 capsule as neede d Orally Once a day for 30 day(s) Active Potassium Chloride 10 MEQ/100ML as directed Intravenous Acti ve Aspir-81 81 MG 1 tablet Orally Once a day for 30 day(s) Active Norvasc 5 MG 1 tablet Orally Once a day for 30 day(s) Active Nattokinase 100 MG as directed Orally Active Problems Problem Type SNOMED Code ICD Code Onset Dates Problem Status W/U Status Risk Notes Problem Malignant tumor of prostate (864215203) CA Prostate (185) Active confirmed Problem 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) Hypogonadism* (257.2) Active confirmed Problem BPH Nodw/ Obstr (600.11) Active confirmed Problem Incomplete emptying of bladder (852633815) 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) Active confirmed Problem Nocturia (112054254) Nocturia (788.43) Active confirmed Problem Slowing of urinary stream (09665247) Slow stream (788.62) Active confirmed Problem Elevated PSA (592057530) Elevated PSA (790.93) Active confirmed Plan Of Treatment Pending Test Test Name Order Date *Whole Body Bone Scan 05/24/2013 *Whole Body Bone Scan 05/10/2013 BMP 05/10/2013 *PSA Free and Total (Test Code: 17471) 1 04/12/2012 *PSA Free and Total (Test Code: 64016) 1 04/25/2012 *Biopsy Prostate 04/28/2013 Urinalysis 02/10/2013 USG PRBX 04/28/2013 US Prostate 02/22/2013 *CT Scan : Abd and Pelvis with and witho ut PO and IV Contrast 05/10/2013 testosterone free and Total 3 Insurance Providers Payer Name Payer Address Payer Phone Subscriber Number Group Number Insured Name Patient Relationship to Insured Coverage Start Date Coverage End Date [employer] [address] [place] [address] [id number] Roland Diaz Self - patient is the insured 4 Medical (General) History Medical History History ICD Code hypertension heart trouble thyroid issues Surgical History Surgery Date(Month/Year) 2 stents in heart 2009 Hospitalization History Reason Date(Month/Year) [facility] for heart stents 2009
--- OUTSIDE RECORDS SUMMARY | 2024-09-20 13:22 | XMS_ITS | Clinical Summary ---
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
--- OUTSIDE RECORDS SUMMARY | 2024-09-20 13:22 | XMS_ITS | Patient Health Record ---
Author Organization [facility] Address [address] [place] [address] Care Team Providers Care Air Vice Marshal Name Role Phone Roula Ojeda A.P.R.N. Primary Care Provider Unavailable Anam Lynn [phone] Allergies Allergen (clinical drug ingredient) Drug/Non Drug Allergy documented on EMR Reaction Allergy Type Onset Date Status escitalopram Lexapro Unknown Drug Allergy Acti ve sulfamethoxazole / trimethoprim Bactrim DS Unknown Drug Allergy Active candesartan / hydrochlorothiazide [place] HCT Unknown Drug Allergy Active Reason For Referral No Information Medications Medication SIG (Take, Route, Frequency, Duration) Notes Start Date End Date Status Atorvastatin Calcium 10 MG 1 tablet Oral ly Once a day for 90 days Active Tamsulosin HCl 0.4 MG 1 capsule Orally O nce a day Active Metoprolol Succinate ER 50 MG 1.5 Tablet Orally Once a day Active Amiodarone HCl 200 MG 1 tab in am 0.5mg in pm Orally Once a day Active Finasteride 5 MG 1 tablet Orally Once a day Active Entresto 24-26 mg 1 tablet Orally Twic e a day for 30 Active Clopidogrel Bisulfate 75 MG 1 tablet Ora lly Once a day for 90 Active Potassium Chloride [place] ER 10 MEQ 1 tablet with food Orally Once a day Active Magnesium Oxide 400 MG 1 tablet as neede d Orally Once a day for 30 day(s) Active Nitroglycerin 0.4 MG Sublingual Active Furosemide 40 MG 1 tablet Orally Once a day Active Stool Softener 100 MG 1 capsule as neede d Orally Once a day Active Social History Tobacco Use: Social History Observation Description Date Details (start date - stop date) Never Smoker NA - NA Smoking: Question Answer Notes Are you a: never smoker Drugs Question Answer Notes Have you used drugs other th an those for medical reasons in the past 12 months? No Alcohol Question Answer Notes Did you have a drink containing alcohol past yea r? No Points 0 Interpretation Negative Problems Problem Type SNOMED Code ICD Code Onset Dates Problem Status W/U Status Risk Notes Problem Atherosclerosis of coronary artery (401212243) Coronary atherosclerosis of [place] coronary artery (414.01) Active confirmed Problem Ventricular tachycardia (32817469) Ventricular tachycardia (I47.2) Active confirmed Problem Hypertensive heart failure (21159847) Hypertensive heart disease with heart failure (I11.0) Active confirmed Problem Chronic systolic heart failure (817645786) Chronic systolic (congestive) heart failure (I50.22) Active confirmed Problem Hyperlipidemia (95807822) Hyperlipidemia, unspecified (E78.5) Active confirmed Problem Essential hypertension (60067450) Essential (primary) hypertension (I10) Active confirmed Problem Acute ischemic heart disease (744316780) Other forms of acute ischemic heart disease (I24.8) Active confirmed Problem Atherosclerotic heart disease of [place] coronary artery without angina pectoris (919583648304493) Atherosclerotic heart disease of [place] coronary artery without angina pectoris (I25.10) Active confirmed Problem Aortic valve disorder (8487846) Nonrheumatic aortic (valve) stenosis (I35.0) Active confirmed Problem Cardiomyopathy associated with another disorder (789706240) Other cardiomyopathies (I42.8) Active confirmed Problem Precordial pain (18726202) Precordial pain (R07.2) Active confirmed Problem Post percutaneous transluminal coronary angioplasty (954135871) Presence of coronary angioplasty implant and graft (Z95.5) Active confirmed Problem Automatic implantable cardiac defibrillator in situ (158380923) Presence of automatic (implantable) cardiac defibrillator (Z95.810) Active confirmed Problem Post percutaneous transluminal coronary angioplasty (314713056) Coronary angioplasty status (Z98.61) Active confirmed Problem 88327984 Hypothyroidism (E03.9) Active confirmed Problem Cardiomyopathy (28021771) Cardiomyopathy (I42.9) Active confirmed Problem Heart murmur (544103642) Heart murmur (R01.1) Active confirmed Problem Angina at rest (01877794) Angina at rest (I20.8) Active confirmed Problem Dyspnea (354951436) Dyspnea (R06.00) Active confirmed Problem 868999956 Chest pressure (R07.89) Active confirmed Problem 807964429 Esophageal reflu x (K21.9) Active confirmed Problem 070045228 Acute dyspnea (R06.00) Active confirmed Problem Pulmonary hypertension due to left heart disease (515928471) Pulmonary hypertension due to left heart disease (I27.22) Active confirmed Plan Of Treatment Pending Test Information is temporarily u navailable. Future Test Information is temporarily u navailable. Next Appt Information is temporarily u navailable. Medical (General) History Medical History History ICD Code Coronary Artery Disease (CAD) Hypertension Hyperlipidemia Gastroesophageal Reflux Disease (GERD) Hypothyroidism Prostate cancer Transient Ischemic Attack (TIA) Aortic Valve Stenosis Cardiomyopathy Left Ventricular Hypertrophy (LVH) Left Ventricular Diastolic Dysfunction ( LVDD) Pulmonary Hypertension Congestive Heart Failure (CHF) Ventricular Tachycardia (VT) Abnormal Electrocardiogram [EKG] Dyspnea Surgical History Surgery Date(Month/Year) Cardiac catheterization 11/2009, 06/2014 , 10/2016, 07/2017 Automatic Implantable Cardio verter-Defibrillator (AICD) [facility] [place] single chamber ICD 07/2017 Percutaneous Coronary Intervention (PCI) - stent to LAD 07/2017 Percutaneous Coronary Interv ention (PCI) - stent to prox LAD, stent to ramus 11/2009 Hospitalization History Reason Date(Month/Year) Dyspnea 06/2017
--- OUTSIDE RECORDS SUMMARY | 2024-09-20 13:22 | XMS_ITS | Patient Health Record ---
Author Organization [facility] Address [address] [place] [address] Care Team Providers Care Engineering Administrator Name Role Phone Roula Culp Primary Care Provider LILLY Bacon Unavailable [phone] Allergies Allergen (clinical drug ingredient) Drug/Non Drug Allergy documented on EMR Reaction Allergy Type Onset Date Status candesartan / hydrochlorothiazide Atacand HCT Unknown Drug Allergy Active sulfamethoxazole / trimethoprim Bactrim DS Unknown Drug Allergy Active escitalopram Lexapro Unknown Drug Allergy Acti ve Reason For Referral No Information Medications Medication SIG (Take, Route, Fr equency, Duration) Notes Start Date End Date Status Ubiquinol Active Vitamin D Active Vitamin B 12 Active Flomax Active Proscar Active Ranitidine HCl Activ e Potassium Chloride A ctive [place] Thyroid Activ e Norvasc Active toprol Active Lasix Active Social History Tobacco Use: Social History Observation Description Date Details (start date - stop date) Never Smoker NA - NA Tobacco Use/Smoking Question Answer Notes Are you a nonsmoker Alcohol Screen (Audit-C) Question Answer Notes Did you have a drink containing alcohol in the p ast year? No Points 0 Interpretation Negative Problems Problem Type SNOMED Code ICD Code Onset Dates Problem Status W/U Status Risk Notes Problem Unspecified essential hypertension (I10) Active confirmed Plan Of Treatment No Information Insurance Providers Payer Name Payer Address Payer Phone Subscriber Number Group Number Insured Name Patient Relationship to Insured Coverage Start Date Coverage End Date [employer] [address] [place] [id number] [phone] [id number] INGRID PERRY Self - patient is the insured Medical (General) History Medical History History ICD Code cancer Prostate problems High blood pressure Hypothyroidism Surgical History Surgery Date(Month/Year) aortic valve replacement
--- OUTSIDE RECORDS SUMMARY | 2024-09-20 13:22 | XMS_ITS | Clinical Summary ---
Author Organization [facility] Address [address] [place] [address] Phone Care Team Providers Care Sandal Parts Assembler Name Role Phone Unavailable Primary Care Provider Unavailabl e Allergies No known active allergies Medications aspirin (ECOTRIN EC) 81 mg Tablet, Delayed Release (E.C.) Take 1 Tablet (81 mg) by mouth daily. 30 Tablet 2 Active atorvastatin (LIPITOR) 40 mg tablet Take 1 Tablet (40 mg) by mouth daily. 30 Tablet 5 04/22/2021 2:14 PM GOLD CHARMER 2 Active clopidogreL (PLAVIX) 75 mg Tablet Take 1 Tablet (75 mg) by mouth daily. 30 Tablet 11 2 Active nitroglycerin (NITROSTAT) 0.4 mg Tablet, Sublingual Place 1 Tablet (0.4 mg) under tongue every 5 minutes as needed for Chest Pain (Not to exceed 3 doses, notify physician if chest pain not relieved, hold if systolic BP less than or equal to 90 mmHg). 25 Tablet 3 04/22/2021 2:14 PM GOLD CHARMER 2 Active metoprolol succinate (TOPROL XL) 50 mg Extended Release 24 hour tablet Take 1 Tablet (50 mg) by mouth daily. 30 Tablet 5 04/22/2021 2:14 PM GOLD CHARMER 2 Active Additional Information Patient taking differently: 25 mgOral DAILY, Reported on 05/08/2021 tamsulosin (FLOMAX) 0.4 mg capsule Take 1 Capsule (0.4 mg) by mouth 2 times daily. 60 Capsule 1 04/22/2021 2:14 PM GOLD CHARMER 2 Active ASCORBIC ACID, VITAMIN C, ORAL Take 1 Tablet by mouth daily in the morning. Active VITAMIN A ORAL Take 1 Tablet by mouth daily in the morning. Active acetaminophen (TYLENOL) 325 mg tablet Take 650 mg by mouth every 4 hours as needed for Pain. 1 Active amiodarone (CORDARONE) 200 mg tablet Take 200 mg by mouth daily. 1 Active lisinopriL (PRINIVIL) 10 mg tabletIndication s:Chest pain, unspecified type,Acute on chronic congestive heart failure, unspecified heart failure type (CMS/HCC),Chest pain Take 1 Tablet (10 mg) by mouth daily. 30 Tablet 04/22/2021 2:14 PM GOLD CHARMER 2 Active spironolactone (ALDACTONE) 25 mg tablet Take One-Half Tablet (12.5 mg) by mouth daily. 30 Tablet 04/22/2021 2:14 PM GOLD CHARMER 2 Active calcium carbonate + vitamin D (Calcium with Vitamin D) 600 mg-10 mcg (400 unit) Tablet Take 1 Tablet by mouth daily. Active docusate sodium (COLACE) 100 mg capsule Take 100 mg by mouth 2 times daily as needed for Constipation. Active finasteride (PROSCAR) 5 mg tablet Take 5 mg by mouth daily at bedtime. Active lidocaine (LIDODERM) 5 % Adhesive Patch, Medicated Apply 2 Patches to affected area 1 time daily as needed for Pain. Active magnesium oxide (MAG-OX) 400 mg (241.3 mg magnesium) tablet Take 400 mg by mouth daily. Active pantoprazole (PROTONIX) 40 mg Tablet, Delayed Release (E.C.) Take 40 mg by mouth daily. Active phenoL (CHLORASEPTIC) 1.4 % Aerosol, Casmalia 1 Casmalia by Mouth/Throat route every 2 hours as needed for Discomfort or Sore Throat. Active polyethylene glycol (MIRALAX) 17 gram Powder in Packet Take 17 Grams by mouth daily. Active potassium chloride (KLOR-CON) 10 mEq Extended Release tablet Take 20 mEq by mouth daily with breakfast. Active sennosides-docus ate sodium (SENNA-S) 8.6-50 mg tablet Take 1 Tablet by mouth daily. Active vitamin B complex-vitamin C-folic acid 1 mg Capsule Take 1 Capsule by mouth daily. Active torsemide (DEMADEX) 20 mg tablet Take 1 Tablet (20 mg) by mouth 2 times daily. 60 Tablet 2 Active Active Problems Patient Care Coordination No te Formatting of this note migh t be different from the original. Safety Admin Assistant - Dr. Flip Macias [facility] [address] [facility] Problem Noted Date Diagnosed Date Chest pain 04/17/2021 Overview (04/18/2021): Added automatically from request for surgery [id number] Acute respiratory failure with hypoxia Acute on chronic congestive heart failure Social History Tobacco Use Types Packs/Day Years Used Date Smoking Tobacco: Never Smokeless Tobacco: Never Sex and Gender Information Value Date Recorded Sex Assigned at Not on file Legal Sex Male 4:15 AM GOLD CHARMER Gender Identity Not on file Sexual Orientation Not on file Last Filed Vital Signs Vital Sign Reading Time Taken Comments Blood Pressure 132/54 04/26/2021 9:27 AM GOLD CHARMER Pulse 55 04/26/2021 9:27 AM GOLD CHARMER Temperature 36.7 C (98.1 F) 04/22/2021 7:49 AM GOLD CHARMER Respiratory Rate 20 04/22/2021 7:49 AM GOLD CHARMER Oxygen Saturation 98% 04/26/2021 9:27 AM GOLD CHARMER Inhaled Oxygen Concentration - - Weight 101 kg (222 lb 9.6 oz) 04/26/2021 9:27 AM GOLD CHARMER Height 180.3 cm (5' 11 ) 04/17/2021 11:13 PM GOLD CHARMER Body Mass Index 31.05 04/17/2021 11:13 PM GOLD CHARMER Plan of Treatment Health Maintenance Due Date Last Done Comments ZOSTER VACCINE (1 of 2) 10/02/1985 DTAP/TDAP/TD VACCINES (1 - Tdap) 01/15/2002 01/15/20 02 RSV VACCINE (60+ or ) (1 - 1-dose 75+ series) 10/02/2010 PNEUMOCOCCAL VACCINE 50+ YEA RS (2 of 2 - PCV) 05/06/2019 05/06/2018, 10/19/2017, 10/02/2016, Additional history exists INFLUENZA VACCINE (#1) 2023 Medical Devices Implanted Type Area Astrobiologist Device Identifier Shelf Expiration Date Model / Serial / Lot Stent Synergy Xd 2.63u38et Evrs Elut [id number] - [id number] Implanted:Qty : 1 on 04/18/2021 by Flip Macias MD at [facility] Stent Left: Coronary [employer] 10/29/2022 [id number] / / [id number] Description:1st diagonal Insurance [employer] [facility] [employer] Medicare Part D Advance Directives For more information, please contact: [phone] * Full Code (Latest Code Status on File) Date Activated Date Inactivated Comments 04/21/2021 1:43 PM 04/22/2021 4:45 PM * Default Full Code - Needs Discussion Date Activated Date Inactivated Comments 04/18/2021 12:44 PM 04/21/2021 1:43 PM * Default Full Code - Needs Discussion Date Activated Date Inactivated Comments 04/18/2021 8:34 AM 04/18/2021 12:44 PM
--- NOTE | 2024-09-20 13:24 | XR_ITS ---
WS: [id number] XR chest 1V portable [id number] REASON FOR EXAM: syncope FINDINGS: Cardiac device of the left chest with single trans left subclavian vein lead to the right ventricular apex. Calcified aortic arch with significant tortuosity and ectasia of the descending thoracic aorta. Significant cardiomegaly. Aortic stent valve. Dilated central pulmonary veins. Compared to the previous examination of 09/01/2024, cuffing and interstitial lung opacities compatible with acute or subacute superimposed on chronic congestive heart failure. XR/XR chest 1V portable [id number] IMPRESSION: Congestive heart failure as above.
[2024-09-20 13:39] LABS: Alanine Aminotransferase 20 U/L (0-41); Albumin Level 3.6 g/dL (3.5-5.2); Alkaline Phosphatase 130 U/L (40-130); Anion Gap 19.7 (5-19); Aspartate Amino Transferase 32 U/L (0-40); Blood Urea Nitrogen 49 mg/dL (8-23); Calcium 9.1 mg/dL (8.5-10.5); Carbon Dioxide 26 mmol/L (22-29); Chloride 93 mmol/L (98-107); Creatinine Clr Calc Pharmacy 29.2430; Globulin 3.2 g/dL (1.3-4.6); Glucose 136 mg/dL (65-115); Osmolality Calculated 297 mOsm/kg (285-295); Sodium 136 mmol/L (136-145); Total Protein 6.8 g/dL (6.6-8.7)
[2024-09-20 13:42] LABS: Potassium 2.7 mmol/L (3.5-5.1)
--- NOTE | 2024-09-20 14:04 | PC.NURSE ---
PT REFUSED WHOLE DOSE OF POTASSIUM. TWO OF FOUR TABS GIVEN OF POTASSIUM.
[2024-09-20 14:25] LABS: Magnesium 2.6 mg/dL (1.7-2.3); NT Pro B Type Natriuretic Pept 19035 pg/mL (0-450)
[2024-09-20 15:08] VITALS: BP 107/69; PULSE 61; O2SAT 94
[2024-09-20 15:09] VITALS: BP 107/69; PULSE 53; RESP 16; O2SAT 94
== END 2024-09-20 15:10 | disposition home or self-care (01) ==
PROVIDERS: Emergency Provider Emergency Medicine; PCP Family Medicine
DX: R55 Syncope and collapse (principal); E87.6 Hypokalemia; Z79.82 Long term (current) use of aspirin; Z86.73 Personal history of transient ischemic attack (TIA), and cerebral infarction without residual deficits; I13.0 Hypertensive heart and chronic kidney disease with heart failure and stage 1 through stage 4 chronic kidney disease, or unspecified chronic kidney disease; N18.30 Chronic kidney disease, stage 3 unspecified; I50.9 Heart failure, unspecified
CPT/HCPCS: 71045; 80053; 83735; 83880; 85025; 93005; 99285; J9999

== ENCOUNTER 2024-09-24 12:28 | Emergency (ER) | payer MEDICARE, SELFPAY ==
[2024-09-24] VITALS (8 sets, daily range): BP systolic 101–111; BP diastolic 55–68; PULSE 53–64; RESP 16–25; TEMP 36.9; O2SAT 84–99; BMI 24.1
--- OUTSIDE RECORDS SUMMARY | 2024-09-24 12:38 | XMS_ITS | Patient Health Record ---
Author Organization [facility] Address [address] [place] [address] Care Team Providers Care Tower Director Name Role Phone Roula Ojeda A.P.R.N. Primary Care Provider Unavailable Anam Lynn [phone] Allergies Allergen (clinical drug ingredient) Drug/Non Drug [...] Risk Notes Problem Atherosclerosis of coronary artery (764319624) Coronary atherosclerosis of [place] coronary artery (414.01) Active confirmed Problem Ventricular tachycardia (01253737) Ventricular tachycardia (I47.2) Active confirmed Problem Hypertensive heart failure (05821692) Hypertensive heart disease with heart failure (I11.0) Active confirmed Problem Chronic systolic heart failure (208071699) Chronic systolic (congestive) heart failure (I50.22) Active confirmed Problem Hyperlipidemia (64750744) Hyperlipidemia, unspecified (E78.5) Active confirmed Problem Essential hypertension (12745517) Essential (primary) hypertension (I10) Active confirmed Problem Acute ischemic heart disease (235147647) Other forms of acute ischemic heart disease (I24.8) Active confirmed Problem Atherosclerotic heart disease of [place] coronary artery without angina pectoris (774216919935466) Atherosclerotic heart disease of [place] coronary artery without angina pectoris (I25.10) Active confirmed Problem Aortic valve disorder (7612378) Nonrheumatic aortic (valve) stenosis (I35.0) Active confirmed Problem 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.8) Active confirmed Problem Precordial pain (24389905) Precordial pain (R07.2) Active confirmed Problem Post percutaneous transluminal coronary angioplasty (093835134) Presence of coronary angioplasty implant and graft (Z95.5) Active confirmed Problem Automatic implantable cardiac defibrillator in situ (279556724) Presence of automatic (implantable) cardiac defibrillator (Z95.810) Active confirmed Problem Post percutaneous transluminal coronary angioplasty (357512062) Coronary angioplasty status (Z98.61) Active confirmed Problem 23108844 Hypothyroidism (E03.9) Active confirmed Problem Cardiomyopathy (53983378) Cardiomyopathy (I42.9) Active confirmed Problem Heart murmur (470181608) Heart murmur (R01.1) Active confirmed Problem Angina at rest (37413243) Angina at rest (I20.8) Active confirmed Problem Dyspnea (413319369) Dyspnea (R06.00) Active confirmed Problem 664096778 Chest pressure (R07.89) Active confirmed Problem 952317411 Esophageal reflu x (K21.9) Active confirmed Problem 683340549 Acute dyspnea (R06.00) Active confirmed Problem Pulmonary hypertension due to left heart disease (696279102) 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
--- OUTSIDE RECORDS SUMMARY | 2024-09-24 12:39 | XMS_ITS | Clinical Summary ---
Author Organization [facility] Address [address] [facility] Attn: Epic Prelude ADT ELSA MEADOWS [address] Care Team Providers Care Director Of Slot Operations Name Role Phone Unavailable Primary Care Provider Unavailabl e Social History Tobacco Use Types Packs/Day Years Used Date Smoking Tobacco: Never Assessed Sex and Gender Information Value Date Recorded Sex Assigned at Not on file Legal Sex Male 5:44 PM CRIMINAL JUSTICE FACULTY Gender Identity Not on file Sexual Orientation Not on file Plan of Treatment Health Maintenance Due Date Last Done Comments DTAP/TDAP/TD VACCINES (1 - Tdap) 10/02/1954 PNEUMOCOCCAL VACCINE 50+ YEARS (1 of 1 - PCV) 10/02/18 86 ZOSTER VACCINE (1 of 2) 10/02/1985 RSV VACCINE (60+ or ) (1 - 1-dose 75+ series) 10/02/2010 INFLUENZA VACCINE (#1) 2024
--- OUTSIDE RECORDS SUMMARY | 2024-09-24 12:39 | XMS_ITS | Data Portability ---
Author Organization ELSA Sullivan [facility], [place], [facility] Address [address] include 234 beds at the [facility] [address] [place] [address] Assessment No assessment recorded. Plan of Treatment Reminders Order Date Submit Date Provider Last Modified By Organization Details Last Modified Time Details Appointments None recorded. Lab respiratory pathogens DNA and RNA panel, PCR, nasopharynx 2024 025 dcrase [facility] ([facility]), [address] [place], [address], 15:18:22 Referral None recorded. Procedures None recorded. Surgeries None recorded. Imaging None recorded. Medication Orders Delsym 12 hour 30 mg/5 mL oral suspension, extended release 2024 025 [facility], [address] [place] [address], [address], 13:41:01 fluticasone propionate 50 mcg/actuati on nasal spray,suspe nsion 2024 025 [facility], [address] [place] [address], [address], 13:41:01 loratadine 10 mg tablet 2024 025 [facility], [address] [place] [address], [address], 5 13:41:00 Carafate 100 mg/mL oral suspension 2023 024 [facility] [place], [address] [place], [address], 4 15:14:03 amoxicillin 875 mg-potassiu m clavulanate 125 mg tablet 2022 024 [id number], [address], [place], [place], [id number], 4 14:19:06 promethazin e-DM 6.25 mg-15 mg/5 mL oral syrup 2022 024 [facility] #[id number], [address], [place], [place], [phone], 4 14:21:16 Patient TargetsNo targets recorded. Patient InstructionsNo instructions recorded. Reason for Referral None Reported. Results Created Date Observation Date Name Description Value Unit Range Abnormal Flag Note LastModifiedBy Organization Detail LastModifiedTime 08/26/1908/25/2024 respi rator y patho gens DNA and RNA panel , PCR, nasop haryn x Covid negati ve Not Available [facility] ([facility]) [address] [place], [address], 08/25/2024 11:29:22 08/26/19 25 08/25/2024 respi rator y patho gens DNA and RNA panel , PCR, nasop haryn x Rhinovirus negati ve Not Available [facility] ([facility]) [address] [place], [address], 08/25/2024 11:29:22 08/26/19 25 08/25/2024 respi rator y patho gens DNA and RNA panel , PCR, nasop haryn x Influenza A negati ve Not Available [facility] ([facility]) [address] [place], [address], 08/25/2024 11:29:22 08/26/19 25 08/25/2024 respi rator y patho gens DNA and RNA panel , PCR, nasop haryn x Influenza B negati ve Not Available [facility] ([facility]) [address] [place] [address], [phone], 08/25/2024 11:29:22 08/26/1908/25/2024 respi rator y patho gens DNA and RNA panel , PCR, nasop haryn x RSV negati ve Not Available [facility] ([facility]) [address] [place] [address], [phone], 08/25/2024 11:29:22 Result Notes None recorded. Problems Name Problem SNOMED Code Status Onset Date Resolution Date Notes Provider Name and Address Organization Details Recorded Time Posterior rhinorrhea 85809956 Active Raymundo Krause MD [address] [place] [address], [phone], [facility] 11:56:40 Acute cough Active Raymundo Krause MD [address] [place] [address], [phone], [facility] 09:06:14 Problem Notes None recorded. Medical Equipment None Reported. Allergies No known drug allergies Medications Name Sig Start Date Stop Date Status Note LastModified by Organization Details LastModified Time furosemid e 40 mg tablet TAKE 1 TABLET BY MOUTH TWICE DAILY DIRECTED active Not Available Not Available No t Available atorvasta tin 40 mg tablet TAKE 1 TABLET BY MOUTH EVERY DAY active Not Available Not Available No t Available promethaz ine-DM 6.25 mg-15 mg/5 mL oral syrup Take 5 mL every 4 hours by oral route for 7 days. 12/10 completed Not Available Not Available Not Available vitamin A 2,400 mcg capsule Take 1 capsule every day by oral route. active Not Available Not Available No t Available prednison e 10 mg tablet TAKE 1 TABLET BY MOUTH EVERY DAY 12/10 completed Not Available Not Available Not Available Delsym 12 hour 30 mg/5 mL oral suspensio n,extende d release Take 10 mL twice a day by oral route as needed. 2024 active Not Available Not Available Not Avai lable Carafate 100 mg/mL oral suspensio n Take 10 mL 4 times a day by oral route as needed. 2023 active Not Available Not Available Not Avai lable torsemide 20 mg tablet TAKE 2 TABLETS BY MOUTH TWICE DAILY 12/10 completed Not Available Not Available Not Available ammonium lactate 12 % lotion APPLY THIN FILM TO AFFECTED AREA TWICE DAILY 12/10 completed Not Available Not Available Not Available amiodaron e 200 mg tablet TAKE 1 TABLET BY MOUTH EVERY DAY FOR RHYTHM active Not Available Not Available No t Available docusate calcium 240 mg capsule Take 1 capsule every day by oral route. active Not Available Not Available No t Available isosorbid e mononitra te ER 30 mg tablet,ex tended release 24 hr TAKE 1 TABLET BY MOUTH EVERY DAY 12/10 completed Not Available Not Available Not Available Zithromax Z-Danny 250 mg tablet as directed 12/10 completed VO HM/MA; Recorded 10/13/19 4:18PM by Franky Burns, Historic al Summary; Refill Quantity : 0; Not Available Not Available Not Available meclizine 12.5 mg tablet TAKE ONE TABLET BY MOUTH TWICE DAILY as needed for dizzines s 12/10 completed Not Available Not Available Not Available potassium chloride ER 10 mEq tablet,ex tended release TAKE 1 TABLET BY MOUTH TWICE DAILY active Not Available Not Available No t Available clopidogr el 75 mg tablet TAKE 1 TABLET BY MOUTH EVERY DAY active Not Available Not Available No t Available amoxicill in 875 mg tablet TAKE 1 TABLET BY MOUTH TWICE DAILY UNTIL GONE 12/10 completed Not Available Not Available Not Available potassium chloride ER 20 mEq tablet,ex tended release(p art/cryst ) take ONE-HALF tablet BY MOUTH TWICE DAILY 12/10 completed Not Available Not Available Not Available prednisol one acetate 1 % eye drops,johnie pension instill 1 drop INTO both eyes FOUR TIMES DAILY DIRECTED START DAY of PROCEDUR E AND CONTINUE FOR 30 DAYS THEN TWICE DAILY UNTIL NEXT APPOINTM ENT 12/10 completed Not Available Not Available Not Available aspirin 325 mg tablet,de layed release TAKE 1 TABLET BY MOUTH EVERY DAY 12/10 completed Not Available Not Available Not Available tamsulosi n 0.4 mg capsule take 1 capsule BY MOUTH EVERY DAY FOR URINE FLOW active Not Available Not Available No t Available baclofen 10 mg tablet take 1/2 tablet BY MOUTH THREE TIMES DAILY NEEDED FOR MUSCLE SPASMS 12/10 completed Not Available Not Available Not Available benzonata te 100 mg capsule take 1 capsule BY MOUTH THREE TIMES DAILY NEEDED FOR COUGH 12/10 completed Not Available Not Available Not Available pantopraz ole 40 mg tablet,de layed release TAKE 1 TABLET BY MOUTH EVERY DAY active Not Available Not Available No t Available nitroglyc elena 0.4 mg sublingua l tablet as needed active Not Available Not Available No t Available gabapenti n 100 mg capsule take 1 capsule BY MOUTH TWICE DAILY 12/10 completed Not Available Not Available Not Available metoprolo l succinate ER 25 mg tablet,ex tended release 24 hr TAKE 1 TABLET BY MOUTH EVERY DAY 12/10 completed Not Available Not Available Not Available azelastin e 137 mcg (0.1 %) nasal spray USE 1 SPRAY IN EACH NOSTRIL TWICE DAILY 12/10 completed Not Available Not Available Not Available fluticaso ne propionat e 50 mcg/actua tion nasal spray,johnie pension [place] 1 spray every day by intranas al route. 2024 active Not Available Not Available Not Avai lable finasteri de 5 mg tablet TAKE 1 TABLET BY MOUTH EVERY DAY 12/10 completed Not Available Not Available Not Available loratadin e 10 mg tablet Take 1 tablet every day by oral route. 2024 active Not Available Not Available Not Avai lable amoxicill in 875 mg-potass ium clavulana te 125 mg tablet Take 1 tablet every 12 hours by oral route for 7 days. 12/10 completed Not Available Not Available Not Available potassium chloride ER 10 mEq tablet,ex tended release(p art/cryst ) TAKE 2 TABLETS BY MOUTH EVERY DAY 06/17 completed Not Available Not Available Not Available chlorhexi dine gluconate 0.12 % mouthwash SWISH with 15ml BY MOUTH TWICE DAILY FOR ONE week 12/10 completed Not Available Not Available Not Available guaifenes in as needed 12/10 completed Not Available Not Available Not Available Magnesium -Oxide daily active Not Available Not Available Not Available FeroSul 325 mg (65 mg iron) tablet TAKE 2 TABLETS BY MOUTH EVERY DAY with breakfas t active Not Available Not Available No t Available Vitamin D3 125 mcg (5,000 unit) tablet Take 1 tablet every day by oral route. active Not Available Not Available No t Available Entresto two times daily 12/10 completed Not Available Not Available Not Available Vitals Date Recorded Body height Oxygen saturation Oxygen saturation in Arterial blood by Pulse oximetry Heart rate Respiratory rate Body temperature Systolic And Diastolic Provider Name and Address Organization Details Last Updated DateTime 5 180.34 cm 98 % 98 % 58 /min 18 /min 98.2 [degF] 130/70 mm[Hg] Nida Ramirez [facility] 5 12:45:21 Date Recorded Body height Body mass index (BMI) Body weight Oxygen saturation Oxygen saturation in Arterial blood by Pulse oximetry Heart rate Body temperature Systolic And Diastolic Provider Name and Address Organization Details Last Updated DateTime 5 180.34 cm 25 kg/m2 53147.0 3 g 99 % 99 % 59 /min 98.3 [degF] 115/68 mm[Hg] Malaika Cranetosha [facility] 5 11:14:59 Date Recorded Body height Body mass index (BMI) Body weight Oxygen saturation Oxygen saturation in Arterial blood by Pulse oximetry Heart rate Respiratory rate Body temperature Systolic And Diastolic Provider Name and Address Organization Details Last Updated DateTime 4 180.34 cm 27.7 kg/m2 87722.7 3 g 93 % 93 % 80 /min 17 /min 98.5 [degF] 162/86 mm[Hg] Krystle Leary [facility] 4 14:29:28 Date Recorded Body weight Oxygen saturation Oxygen saturation in Arterial blood by Pulse oximetry Heart rate Respiratory rate Body temperature Provider Name and Address Organization Details Last Updated DateTime 3 64754.5 4 g 96 % 96 % 66 /min 20 /min 98 [degF] BRETT CASTANEDA [facility] 3 15:50:47 Social History Question Answer Notes LastModified by Organizat ion Details LastModified Time Tobacco Smoking Status Never Smoker Krystle rose, [facility] 12/11/2023 14:25:13 What Was The Date Of Your Most Recent Tobacco Screening? 12/11/2023 Information not available 12/11/2023 Sex: Unknown Functional Status Question Answer Note LastModified by Organizat ion Details LastModified Time Do you use any illicit or recreational drugs? No Information not available 12/11/2023 What is your level of alcohol consumption? None Information not available 12/11/2023 Mental Status None recorded. Family History Nothing Reported. Medical History No medical history recorded. Past Encounters Encounter ID Performer Location Encounter Start Date Encounter Closed Date Diagnosis/Indication Diagnosis SNOMED-CT Code Diagnosis ICD10 Code Diagnosis Note [id number] BRISA ROWELL PA-C [facility] ([facility]) [address] [place] [phone] 01/11/2023 14:35:13 01/11/2023 16:10:19 Acute maxillary sinusitis 99761387 J01.00 [id number] JELLY ETIENNE [facility] ([facility]) [address] [place] [phone] 12/11/2023 14:16:07 12/11/2023 17:51:31 Gastroesophageal reflux disease 648507756 K21.00 sTarted on PRN carafate for his breakthrou gh heartburn symptoms. Has known hiatal hernia. Discussed to f/u with PCP if symptoms persist. Congestive heart failure 91210001 I50.9 Increase lasix to 2 pills in the a.m. and 1 in the afternoon for next 3-4 days. [id number] JELLY ETIENNE [facility] ([facility]) [address] [place] [address] 06/17/2024 12:38:03 06/17/2024 13:06:49 [id number] Maynor Krause MD [facility] ([facility]) [address] [place] [address] 08/25/2024 11:02:27 08/29/2024 16:09:19 Acute cough 5081911739 64221892 R05.1 Given the potential exposure earlier this week, respirator y pathogen panel was obtained and was negative. Will provide cough syrup to help manage symptoms. Posterior rhinorrhea 758 [address]047 R09.82 Concerned that majority of his cough is related to postnasal drip. The patient does admit to having issues with chronic sinus problems. Health Concerns Section Related Observation LastModified by Organization Detai ls LastModified Time None Recorded Concern Status LastModified by Organization Details LastModified Time None Recorded Advance Directives Directive None Recorded Payers Insurance Date Sequence Insurance Name Policy Number Policy Stanton Covered Member ID Stanton Member ID Guarantor Name 08/25/2024 1 [employer] (MEDICARE REPLACEMENT/ ADVANTAGE - PPO) Roland Vazquez Erzinger [id number] Roland Diaz Notes Date Note Type Note Provider Name and Address Organization Details Recorded Time 01/11/2023 text/html Upper Respirator y SymptomsReported bypatient.Quality:esteban ested;dry cough;nasal discharge Duration:symptoms lasting less than 2 weeks (1-2WEEKS) Onset/Timing:gradual Associated Symptoms:fatigue;morni ng cough CHEST TIGHTNESS AND CONGESTION, SINUS DRAINAGE BRISA ROWELL PA-C [address] [place], [address], [facility] 01/11/2023 16:02:19 12/11/2023 text/html last 1 week has increased bloating and reflux. yesterday started feeling like he was breathing heavy. has gained 4 pounds. states this is how he feels when he's fluid overloaded.He takes lasix twice a day. He took 2 pills this morning. JELLY ETIENNE [address] [place], [address], [facility] 12/13/2023 16:28:28 08/25/2024 text/html walk inThis is a n 88-year-old gentleman that comes in today with 1 day history of significant cough. Patient states that he started feeling worse yesterday. The patient states that he had a hospital procedure earlier in the week. Maynor Krause MD [address] [place] [address], [phone], [facility] [place] 08/28/2024 09:06:25
--- OUTSIDE RECORDS SUMMARY | 2024-09-24 12:39 | XMS_ITS | Patient Health Record ---
Author Organization [facility] Address [address] [place] [address] [place] [phone] Care Team Providers Care Tool And Die Inspector Name Role Phone RaineJus marinelli Primary Care Provider Juan Parisi Unavailable [phone] Allergies Allergen (clinical drug ingredient) Drug/Non Drug [...] Once a day for 30 day(s) Active [place] 250 MG as directed Orally Active Testosterone Propionate 2 % as directed Transdermal Active B Complex as directed Orally A ctive Chrysaderm Day as directed Externally Active Keflex 500 MG 1 capsule Orally fou r times a day for 3 days 04/12/2013 Active [place] Thyroid 60 MG 1 tablet Orally Onc [...] Risk Notes Problem Malignant tumor of prostate (568709961) CA Prostate (185) Active confirmed Problem 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 confirmed Problem BPH Nodw/ Obstr (600.11) Active confirmed Problem Incomplete emptying of bladder (033447672) 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) Active confirmed Problem Nocturia (271702780) Nocturia (788.43) Active confirmed Problem Slowing of urinary stream (95543710) Slow stream (788.62) Active confirmed Problem Elevated PSA (480812868) Elevated PSA (790.93) Active confirmed Plan Of Treatment Pending Test Test Name Order Date *Whole Body Bone Scan 05/24/2013 *Whole Body Bone Scan 05/10/2013 BMP 05/10/2013 *PSA Free and Total (Test Code: 36255) 1 04/12/2012 *PSA Free and Total (Test Code: 41163) 1 04/25/2012 *Biopsy Prostate 04/28/2013 Urinalysis 02/10/2013 USG PRBX 04/28/2013 US Prostate 02/22/2013 *CT Scan : Abd and Pelvis with and witho ut PO and IV Contrast 05/10/2013 testosterone free and Total 3 Insurance Providers Payer Name Payer Address Payer Phone Subscriber Number Group Number Insured Name Patient Relationship to Insured Coverage Start Date Coverage End Date [employer] [address] [place] [address] [phone] [id number] Roland Diaz Self - patient is the insured 4 Medical (General) History Medical History History ICD Code hypertension heart trouble thyroid issues Surgical History Surgery Date(Month/Year) 2 stents in heart 2009 Hospitalization History Reason Date(Month/Year) [facility] for heart stents 2009
--- OUTSIDE RECORDS SUMMARY | 2024-09-24 12:39 | XMS_ITS | Data Portability ---
Author Organization [facility] [employer] [facility], [facility] [address] [place] [address] Care Team Providers Care Perinatal Director Name Role Phone OJEDA ROULA Primary Care Provider Assessment No assessment recorded. Plan of Treatment Reminders Order Date Submit Date Provider Last Modified By Organization Details Last Modified Time Details Appointments None recorded. Lab CMP, serum or plasma 2018 019 [facility] ([facility]), [address], [place], [address], 9 03:28:07 prolactin, serum 2018 019 [facility] ([facility]), [address], [place], [address], 9 03:28:07 Referral neurologis t referral 2018 019 schuyler Redding MD, [address] , [facility], [place], [address], 9 07:54:52 Procedures holter monitor placement (PROC) 2018 019 RENEE Not available 0 05:25:01 Surgeries None recorded. Imaging None recorded. Medication Orders finasterid e 1 mg tablet 2018 019 [facility], [address], [place], [place], [id number], 9 13:35:13 Patient TargetsNo targets recorded. Patient Instructions Encounter Date Encounter Id Patient Instructions Last Modified By Organization Details Last Modified Time 12/13/2018 [id number] See you back in 3 months for your next regular checkup. Please have fasting lab work done prior [email or web address] Not available 12/13/2018 20:43:32 Reason for Referral Neurologist Referral for Ess ential tremor Referring Physician: Roula Ojeda, Internal Medicine, Encounter Date: 12/13/2018 Results Created Date Observation Date Name Description Value Unit Range Abnormal Flag Note LastModifiedBy Organization Detail LastModifiedTime 12/11/19 19 12/10/2018 CMP, serum or plasm a glucose 95 mg/dL 74-100 Not Available [facility] ([facility]) [address] , [place], [address], 12/10/2018 12:14:12/11/19 19 12/10/2018 CMP, serum or plasm a BUN 20.8 mg/dL 6.0-28 .0 Not Available [facility] ([facility]) [address] , [place], [address], 12/10/2018 12:14:12/11/19 19 12/10/2018 CMP, serum or plasm a creat 1.06 mg/dL 0.60-1 .30 Not Available [facility] ([facility]) [address] , [place], [address], 12/10/2018 12:14:12/11/19 19 12/10/2018 CMP, serum or plasm a GFR estimated 67 mL/mi n/1.7 3m2 >60 IDMS trace able MDRD study equat ion. If patie nt is Afric an-Am marquise n, multi ply repor santhosh resul t by 1.21 Not Available [facility] ([facility]) [address] [place], [address], 12/10/2018 12:14:12/11/19 19 12/10/2018 CMP, serum or plasm a BUN/creat 20 % Not Available [facility] ([facility]) [address], [place], [address], 12/10/2018 12:14:12/11/19 19 12/10/2018 CMP, serum or plasm a Na+ 140 mmol/ L 136-14 5 Not Available [facility] ([facility]) [address] [place], [address], 12/10/2018 12:14:12/11/19 19 12/10/2018 CMP, serum or plasm a K+ 3.8 mmol/ L 3.5-5. 2 Not Available [facility] ([facility]) [address] [place], [address], 12/10/2018 12:14:12/11/19 19 12/10/2018 CMP, serum or plasm a cL- 101 mmol/ L 98-107 Not Available [facility] ([facility]) [address] [place], [address], 12/10/2018 12:14:12/11/19 19 12/10/2018 CMP, serum or plasm a CO2 26 mmol/ L 22-29 Not Available [facility] ([facility]) [address] [place], [address], 12/10/2018 12:14:12/11/19 19 12/10/2018 CMP, serum or plasm a anion gap 13 7-17 Not Available [facility] ([facility]) [address] [place], [address], 12/10/2018 12:14:12/11/19 19 12/10/2018 CMP, serum or plasm a calcium 8.7 mg/dL 8.6-10 .5 Not Available [facility] ([facility]) [address] [place], [address], 12/10/2018 12:14:12/11/19 19 12/10/2018 CMP, serum or plasm a tl prot 6.7 g/dL 6.0-8. 5 Not Available [facility] ([facility]) [address], [place], [address], 12/10/2018 12:14:12/11/19 19 12/10/2018 CMP, serum or plasm a alb 4.0 g/dL 3.5-5. 2 Not Available [facility] ([facility]) [address] [place], [address], 12/10/2018 12:14:12/11/19 19 12/10/2018 CMP, serum or plasm a A/G ratio 1.0 Not Available [facility] ([facility]) [address] [place], [address], 12/10/2018 12:14:12/11/19 19 12/10/2018 CMP, serum or plasm a tbil 0.3 mg/dL 0.0-1. 2 Not Available [facility] ([facility]) [address] [place], [address], 12/10/2018 12:14:12/11/19 19 12/10/2018 CMP, serum or plasm a alk phos 96 U/L 40-129 Not Available [facility] ([facility]) [address] [place], [address], 12/10/2018 12:14:12/11/19 19 12/10/2018 CMP, serum or plasm a SGOT/AST 15 IU/L 0-40 Not Available [facility] ([facility]) [address] [place], [address], 12/10/2018 12:14:12/11/19 19 12/10/2018 CMP, serum or plasm a SGPT/ALT 13 IU/L 0-41 Not Available [facility] ([facility]) [address] [place], [address], 12/10/2018 12:14:12/11/19 19 12/10/2018 CMP, serum or plasm a osmol vijaya 282 mOsm/ kg 270-32 0 Not Available [facility] ([facility]) [address] , [place], [address], 12/10/2018 12:14:01 12/11/19 19 12/10/2018 T4, free, serum FT4 1.74 NG/_d L 0.76-1 .70 high Sampl es shoul d not be taken from patie nts recei ving thera py with high bioti n doses (i.e. >5 mg/da y) until at least 8 hours follo wing the last bioti n admin istra tion. For diagn ostic purpo ses, the resul ts shoul d alway s be asses sed in con[facility] nctio n [facility], clini vijaya exami natio n and other findi ngs. Not Available [facility] ([facility]) [address] , [place], [address], 12/10/2018 12:14:02 12/11/19 19 12/10/2018 lipid panel , serum chol 163 mg/dL 0-200 Not Available [facility] ([facility]) [address] , [place], [address], 12/10/2018 12:14:03 12/11/19 19 12/10/2018 lipid panel , serum triglyceride 71 mg/dL 0-150 Trigl yceri de: Khushi l < 150 mg/dL Borde rline 150-1 99 High > 200 Not Available [facility] ([facility]) [address] [place], [address], 12/10/2018 12:14:03 12/11/1912/10/2018 lipid panel , serum HDL chol 50 mg/dL Natio nal Vera stero l Educa tion progr am(NC EP)gu ideli wojciech<4 0mg/d L:Low HDL-c holes terol (gucci r risk facto r for CHD)> =60 mg/dL : high HDL-c holes terol ( neg ative risk facto r for CHD)H DL-ch olest anastasia is affec santhosh by a numbe r of facto rs,e. g.pablo sam, kasey ise,h ormadyson es,ge nder and age. Metho dolog y is Mundo Homog eneou s,enz ymati c,col ormet emilee test gener ation 4.Pre vious Refer ence Range :40-6 0 mg/dL Not Available [facility] ([facility]) [address] , [place], [address], 12/10/2018 12:14:03 12/11/19 19 12/10/2018 lipid panel , serum LDL calc 99 mg/dL 0-130 NCEP Guide lines LDL Chol: < 100 optim al 100-1 29 Above Optim al 130-1 59 Borde rline High 160-1 89 High > or = 190 Very High Not Available [facility] ([facility]) [address] , [place], [address], 12/10/2018 12:14:03 12/11/19 19 12/10/2018 TSH, serum or plasm a TSH3 1.320 uIU/m L 0.270- 4.200 Sampl almas barros d not be taken from patie nts recei ving thera py with high bioti n doses (i.e. >5 mg/da y) until at least 8 hours follo wing the last bioti n admin istra tion. For diagn ostic purpo ses, the resul ts papo d alway s be asses sed in conju nctio n with the patie nt's medic al histo ry, clini vijaya exami natio n and other findi ngs. Not Available [facility] ([facility]) [address] , [place], [address], 12/10/2018 12:14:05 12/03/19 19 12/02/2018 janette torres ion (PROC ) No observ ation record ed. BARCODE Not Available 2018 16:29:00 Result Notes None recorded. Problems Name Problem SNOMED Code Status Onset Date Resolution Date Notes Provider Name and Address Organization Details Recorded Time Angina pectoris 933859338 Active 2016 ANGINA; Original code:I20.9 Entered By: Katherine Wayne MA; Signed By: WES Justin Not Available [facility] 9 23:30:37 Coronary arteriosc lerosis 07312703 Active 2014 CAD; Original code:I25.1 0 Entered By: Mila Everett (Student); Signed By: Mila Everett (Student) Not Available [facility] 9 23:30:38 History of polyp of colon 893929015 Active 2009 COLONIC POLYPS, ADENOMATOU S, HX OF 2001; Original code:Z86.0 10 Entered By: Barbara Davenport MA; Signed By: Barbara Davenport MA Not Available [facility] 9 23:30:38 Hernia of abdominal wall Active 2016 ABDOMINAL WALL HERNIA; Original code:K46.9 Entered By: WES Justin; Signed By: WES Justin Not Available [facility] 9 23:30:38 Hemoptysi s 59203860 Active 2017 HEMOPTYSIS ; Original code:R04.2 Entered By: Denae Figueroa LPN; Signed By: Denae Figueroa LPN Not Available [facility] 9 23:30:38 Esophagit is 01559141 Active 2017 ESOPHAGITI S; Original code:K20.9 Entered By: Megan Simon MA; Signed By: WES Justin Not Available [facility] 9 23:30:38 Closed fracture of base of fifth metacarpa l 478021938 Active 2018 CLOSED DISPLACED FRACTURE OF BASE OF FIFTH METACARPAL BONE OF RIGHT HAND WITH ROUTINE HEALING, SUBSEQUENT ENCOUNTER; Original code:S62.3 16D Entere d By: Manuela Becerra CMA; Signed By: Nohemy Marie CMA Not Available [facility] 9 23:30:38 Cough 23744589 Active 2017 COUGH; Original code:R05 E ntered By: Denae Figueroa LPN; Signed By: Denae Figueroa LPN Not Available [facility] 9 23:30:38 Closed fracture of patella 12132155 Active 2018 CLOSED NONDISPLAC ED FRACTURE OF RIGHT PATELLA WITH ROUTINE HEALING, UNSPECIFIE D FRACTURE MORPHOLOGY , SUBSEQUENT ENCOUNTER; Original code:S82.0 01D Entere d By: Manuela Becerra SAL[employer] FORCE ADMINISTRATOR; Signed By: Nohemy Marie CMA Not Available [facility] 9 23:30:38 Ventricul ar tachycard ia 20809190 Active 2017 VENTRICULA R TACHYCARDI A; Original code:I47.2 Entered By: WES Justin; Signed By: WES Justin Not Available [facility] 9 23:30:38 Hyperlipi demia 16343471 Active 2002 HYPERLIPID EMIA; Original code:E78.5 Entered By: RENOZ Brizuela; Signed By: RENZO Brizuela Not Available [facility] 9 23:30:38 Allergic rhinitis 96357958 Active 2017 ALLERGIC RHINITIS; Original code:J30.9 Entered By: Denae Figueroa LPN; Signed By: WES Justin Not Available [facility] 9 23:30:38 Hypertens jahaira disorder 61649098 Active 2014 HYPERTENSI ON; Original code:I10 E ntered By: RENZO Brizuela; Signed By: RENZO Brizuela Not Available [facility] 9 23:30:38 Benign prostatic hyperplas ia 458653352 Active 2016 BPH (BENIGN PROSTATIC HYPERTROPH Y); Original code:N40.0 Entered By: Denae Figueroa LPN; Signed By: WES Justin Not Available [facility] 9 23:30:39 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 Active 2017 OVERACTIVE BLADDER; Original code:N32.8 1 Entered By: Denae Figueroa LPN; Signed By: John Tang MD Not Available [facility] 9 23:30:39 Abdominal aortic aneurysm 112462143 Active 2014 ABDOMINAL AORTIC ANEURYSM; Original code:I71.4 Entered By: RENZO Brizuela; Signed By: RENZO Brizuela Not Available [facility] 9 23:30:39 Osteoarth ritis of knee 257189751 Active 2016 DJD, KNEES, BILATERAL; Original code:M17.0 Entered By: Denae Figueroa LPN; Signed By: EWS Justin Not Available [facility] 9 23:30:39 Hemorrhoi ds 39634403 Active 2014 HEMORRHOID S; Original code:K64.9 Entered By: RENZO Birzuela; Signed By: WES Justin Not Available [facility] 9 23:30:39 Abdominal mass 210013136 Active 2016 MESENTERIC MASS; Original code:K63.9 Entered By: Maribel Albright MA; Signed By: Maribel Albright MA Not Available [facility] 9 23:30:39 Vertigo 155644720 Active 2017 VERTIGO; Original code:R42 E ntered By: RENZO Brizuela; Signed By: WES Justin Not Available [facility] 9 23:30:39 Gastroeso phageal reflux disease 790503674 Active 2002 REFLUX, ESOPHAGEAL ; Original code:K21.9 Entered By: Madeleine Garcia; Signed By: Madeleine Garcia Not Available [facility] 9 23:30:39 Adenocarc inoma of prostate 425330172 Active 2016 ADENOCARCI NOMA OF PROSTATE; Original code:C61 E ntered By: Viri Mccarthy CMA; Signed By: Celestino Briones M.D. Not Available [facility] 9 23:30:39 Diverticu lar disease of colon 493508425 Active 2004 DIVERTICUL OSIS, COLON; Original code:K57.3 0 Entered By: NIMA Cabrera Dr.; Signed By: NIMA Cabrera Dr. Not Available [facility] 9 23:30:39 Kyphoscol iosis of cervical spine 319356095 Active 2017 KYPHOSCOLI OSIS OF CERVICAL SPINE; Original code:M41.8 2 Entered By: Debbie Benites CMA; Signed By: Debbie Benites CMA Not Available [facility] 9 23:30:39 Congestiv e heart failure 34129461 Active 2017 CHF (CONGESTIV E HEART FAILURE); Original code:I50.9 Entered By: Denae Figueroa LPN; Signed By: WES Justin Not Available [facility] 9 23:30:40 Resting tremor 23789574 [facility] 2018 [facility] 11:[facility]12 Problem Notes None recorded. Medical Equipment None Reported. Allergies Allergen ID Allergen Name Allergen Category Reaction Reaction Severity Criticality Documentation Date Start Date Code Code System Note Provider Name and Address Organization Details Recorded Time 4863842 Lexapro medicatio n Not available Not available Not available 11/02/20182014 76456 1 RxNorm Sever ity: Criti vijaya; Comme nt: Enter ed By: Larry suazo MA; Rachna d By: Hank Everett (Stud ent); Not Available [facility] 9 23:18:05 9784371 Bactrim medicatio n Not available Not available Not available 11/02/20182014 43909 9 RxNorm Sever ity: Criti vijaya; Comme nt: Enter ed By: Larry suazo MA; Rachna d By: Hank Everett (Stud ent); Not Available [facility] 9 23:18:05 6060432 candesart an / hydrochlo rothiazid e medicatio n Not available Not available Not available 11/02/20182014 02947 8 RxNorm Sever ity: Jean vijaya; Comme nt: Enter ed By: Larry suazo MA; Rachna d By: Hank Everett (Stud ent); Not Available [facility] 9 23:18:05 Medications Name Sig Start Date Stop Date Status Note LastModified by Organization Details LastModified Time furosemid e 40 mg tablet TAKE 1 TABLET (40 MG) BY ORAL ROUTE ONCE DAILY active Not Available Not Available No t Available cefuroxim e axetil 250 mg tablet 12/13 completed Not Available Not Available Not Available atorvasta tin 10 mg tablet 1 tablet daily active Not Available Not Available No t Available amiodaron e 200 mg tablet one tab by mouth twice a day active Not Available Not Available No t Available benzonata te 200 mg capsule TAKE ONE CAPSULE BY MOUTH 3 TIMES DAILY NEEDED for cough 12/13 completed Not Available Not Available Not Available metoprolo l succinate ER 50 mg tablet,ex tended release 24 hr 1 tab by mouth in the am and 1/2 tab by mouth in the pm active Not Available Not Available No t Available famotidin e 40 mg tablet 12/13 completed Not Available Not Available Not Available prednison e 20 mg tablet 12/13 completed Not Available Not Available Not Available potassium chloride ER 10 mEq tablet,ex tended release TAKE 1 TABLET BY MOUTH ONCE DAILY. take addition al tablet ON THURSDAY, Y AND THURSDAY with lasix 2018 active Not Available Not Available Not Avai lable clopidogr el 75 mg tablet 1 tablet by mouth daily active Not Available Not Available No t Available magnesium oxide 400 mg (241.3 mg magnesium ) tablet TAKE 1 TABLET BY MOUTH EVERY DAY 2019 active Not Available Not Available Not Avai lable tamsulosi n 0.4 mg capsule TAKE ONE CAPSULE BY MOUTH EVERY night active Not Available Not Available No t Available meclizine 25 mg tablet 12/13 completed Not Available Not Available Not Available Stool Softener (docusate calcium) 240 mg capsule 1 cap by mouth when needed (100mg) 12/13 completed Enter By: Megan Van MA; Signed By: Maribel baltazar, RMA Not Available Not Available Not Available clotrimaz ole-betam ethasone 1 %-0.05 % topical cream 12/13 completed Not Available Not Available Not Available nitroglyc elena 0.4 mg sublingua l tablet 1 tablet every 5 mins x3 prn for chest pain 2017 active Enter By: Debbie Benites CMA; Signed By: WES Padilla Not Available Not Available Not Available docusate sodium 100 mg capsule TAKE ONE CAPSULE BY MOUTH TWICE DAILY NEEDED FOR constipa tion active Not Available Not Available No t Available metoprolo l succinate ER 25 mg tablet,ex tended release 24 hr 12/13 completed Not Available Not Available Not Available brompheni ramine-ps eudoephed rine-DM 2 mg-30 mg-10 mg/5 mL oral syrup TAKE 1 TEASPOON FUL (5ML) BY MOUTH EVERY 4 TO 6 HOURS NEEDED for cough / congesti on 12/13 completed Not Available Not Available Not Available fluticaso ne propionat e 50 mcg/actua tion nasal spray,johnie pension 12/13 completed Not Available Not Available Not Available doxycycli ne hyclate 100 mg tablet 12/13 completed Not Available Not Available Not Available finasteri de 5 mg tablet 1 po every day 12/17 completed Not Available Not Available Not Available finasteri de 1 mg tablet 1 tab by mouth daily. New Dose 9 2018 active Not Available Not Available Not Avai lable amoxicill in 875 mg-potass ium clavulana te 125 mg tablet 12/13 completed Not Available Not Available Not Available potassium chloride ER 10 mEq tablet,ex tended release(p art/cryst ) 12/13 completed Not Available Not Available Not Available Dexilant 30 mg capsule, delayed release 1 tablet by mouth daily 12/13 completed Enter By: Debbie Benites CMA; Signed By: WES Padilla; PHARMACY : [facility] [place], [place]* [address] [place], [place] [address] 7 Ph: [phone] Fax: [phone];Date: 018; Authoriz ed by: WES Calix Not Available Not Available Not Available Entresto 24 mg-26 mg tablet 1 tab po twice a day. active Not Available Not Available No t Available Vitals Date Recorded Body height Body mass index (BMI) Body weight Heart rate Respiratory rate Oxygen saturation Oxygen saturation in Arterial blood by Pulse oximetry Body temperature Systolic And Diastolic Provider Name and Address Organization Details Last Updated DateTime 9 172.72 cm 35.6 kg/m2 460425. 61 g 58 /min 18 /min 94 % 94 % 98.8 [degF] 120/74 mm[Hg] [facility] 11:[facility]:54 Date Recorded Body height Body mass index (BMI) Body weight Heart rate Systolic And Diastolic Provider Name and Address Organization Details Last Updated DateTime 02/08/2019 172.72 cm 35 kg/m2 661396.2 5 g 54 /min 108/62 mm[Hg] Biggoracio Cazaresan [facility] 02/08/2019 10:44:56 Social History None recorded. Functional Status None recorded. Mental Status None recorded. Family History Relationship Description Onset Age of this Age Resolved Age Notes LastModified by Organization Details LastModified Time Father Myocardial infarction [email or web address] Not available 02/08 10:41:36 Father Heart disease open heart surger y [email or web address] Not available 02/08/2019 10:41:46 Mother Obesity [email or web address] Not available 02/08/2019 10:41:58 Medical History No medical history recorded. Immunizations Vaccine Type Date Status Note Provider Nam e and Address Organization Details Recorded Time pneumococcal, unspecified formulation 8 completed Mgean Simon [facility], [facility] 12/13/2018 11:04:59 pneumococcal, unspecified formulation 9 [facility] 12/13/2018 11:04:59 Td(adult) unspecified formulation 2 completed Not Available [facility] 10/10/2018 00:00:28 influenza, unspecified formulation 7 completed Meganmeme Simon [facility], [facility] 12/13/2018 11:04:58 pneumococcal, unspecified formulation 7 completed [facility] 12/13/2018 11:04:59 influenza, unspecified formulation 8 completed [facility] 12/13/2018 11:04:59 pneumococcal polysaccharide PPV23 2 completed Not Available [facility] 10/10/2018 00:00:28 influenza, unspecified formulation 5 completed Megan Simon [facility] 12/13/2018 11:04:59 influenza, unspecified formulation 9 completed [facility] 12/13/2018 11:04:59 Past Encounters Encounter ID Performer Location Encounter Start Date Encounter Closed Date Diagnosis/Indication Diagnosis SNOMED-CT Code Diagnosis ICD10 Code Diagnosis Note [id number] Frederick Velez MD [facility] [address] [place] [address] 12/02/2018 11:25:21 12/09/2018 12:57:24 [id number] Roula Ojeda NP [facility] [address] [facility] [address],[place] [address] 12/13/2018 10:52:34 12/13/2018 11:31:20 Gastroesophageal reflux disease 536822294 K21.9 Well-contr olled. 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 He is followed by Dr. Turpin. 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 I will check a prolactin level with his next lab work. Xerostomia 06891860 R68. 2 The patient was advised to use [employer]ot[employer] products Essential tremor 9703406 09 G25.0 FHx of Parkinson' s, We will refer to neurology for further evaluation . [id number] Jay Redding MD [facility] [address] [facility] [address] [place] [address] 02/08/2019 10:31:28 02/08/2019 22:10:23 Resting tremor 28786826 G25.2 At this point, the patient only has resting tremors in his right upper extremity. I particular ly do not see any other features of parkinsoni sm like cogwheelin g or shuffling gait are hypophonia . I reassured the patient. However I did tell him that he needs to be closely watched for any evolution of symptoms in future. Although he is bothered about the tremors that he would like to have a medication , he is a bit reluctant to start it because he is moving to [place] next Thursday. Therefore I recommende d that he see a neurologis t locally when and if he is ready to start medication s. He came alone. Health Concerns Section Related Observation LastModified by Organization Detai ls LastModified Time None Recorded Concern Status LastModified by Organization Details LastModified Time None Recorded Advance Directives Directive None Recorded Payers Insurance Date Sequence Insurance Name Policy Number Policy Stanton Covered Member ID Stanton Member ID Guarantor Name 03/07/2019 1 [employer] (MEDICARE REPLACEMENT/ ADVANTAGE - POS) [id number] Roland Diaz [id number] Roland Diaz 12/10/2018 2 [employer] (MEDICARE REPLACEMENT/ ADVANTAGE - HMO) [id number] Roland Diaz [id number] [place] Regulo Diaz Notes Date Note Type Note Provider Name and Address Organization Details Recorded Time 9 text/html Mr Diaz is a a very pleasant 83-year-old patient of mine, who comes in today for his routine check uip. He has had several hospitalizations in 2018 for episodic V. tach and coronary artery disease. He now has a pacemaker and is on amiodarone. He reports that he did have some fluttering in his chest recently. His defibrillator did not trigger. He thinks he is having bradycardia rhythms.He has several complex problems including abdominal aortic aneurysm, a stable mesenteric mass,and prostate cancer. He is followed by for his abdominal aortic aneurysm which is stable. He has been seen by Dr. Rodriguez, gastroenterology, for his abdominal mass, and he has been referred to Gen. surgery. Dr. Mott has been monitoring a mass in his abdominalmesentary. It is also stable. He is followed by Dr. Turpin for CAD Aortic Stenosis and CHF. Last EF was 60%.He has 2 stents. His last cardiac cath was done earlier this year. His cardiac status is being managed conservatively. His blood pressure today, is stable. He has been taking Lasix 3 times a week as needed with good diuresis. He has no pedal edema. He has no crackles on auscultation. He is on plavix without bruising symptoms. He recently sees ually for his urology checkup for prostate cancer. His PSA remains elevated, his BPH is well controlled on Proscar. He complains that he is now developing breasts. He occasionally dribbles urine per his report but denies dysuria or nocturia. He is currently not taking anything for hes GERD and reports no significantsymptoms He has 2 new complaints. Over the past he has developed a resting tremor. It is sometimes quite noticeable, other times it is more subtle and pill rolling in appearance. He also complains of shuffling in his gait. He would like to see a neurologist. He also reports having a dry mouth. Patient was offered a flu vaccine today in the office, but declined. Roula Ojeda NP [address] , [place], [address], [facility] 12/13/2018 20:44:30 9 text/html Chief complaint: Tremors This is an 83-year-old male whose brother had Parkinson's disease and of it couple years ago. Patient has started to notice tremors in his right upper extremity about 6 weeks ago. It happens only when he is holding onto things or when he is resting. And he distracts himself like putting his right hand in the pocket, he does not feel the tremors. He is to have tremors in his right lower extremity sometime ago. He has not had any difficulty walking or falling. He denies any problems with his speech. Aldo Redding MD [address] , [place], [address], [facility] 02/08/2019 12:55:11
--- OUTSIDE RECORDS SUMMARY | 2024-09-24 12:39 | XMS_ITS | Patient Health Record ---
Author Organization [facility] Address [address] [place] [address] Care Team Providers Care Architectural Designer Name Role Phone Roula Culp Primary Care Provider LILLY Bacon Unavailable [phone] Allergies Allergen (clinical drug ingredient) Drug/Non Drug [...] HCl Activ e Potassium Chloride A ctive [place] Thyroid Activ e Norvasc Active toprol Active [...] Date [employer] [address] [place] [id number] INGRID PERRY Self - patient is the insured Medical (General) History Medical History History ICD Code cancer Prostate problems High blood pressure Hypothyroidism Surgical History Surgery Date(Month/Year) aortic valve replacement
--- OUTSIDE RECORDS SUMMARY | 2024-09-24 12:39 | XMS_ITS | Clinical Summary ---
Author Organization [facility] Address [address] [place] [address] Phone Care Team Providers Care Concrete Analyst Name Role Phone Unavailable Primary Care Provider Unavailabl e Allergies No known active allergies Medications aspirin (ECOTRIN EC) 81 mg Tablet, Delayed Release (E.C.) Take 1 Tablet (81 mg) by mouth daily. 30 Tablet 2 Active atorvastatin (LIPITOR) 40 mg tablet Take 1 Tablet (40 mg) by mouth daily. 30 Tablet 5 04/22/2021 2:14 PM ASSISTANT PRODUCE MANAGER 2 Active clopidogreL (PLAVIX) 75 mg Tablet [...] mmHg). 25 Tablet 3 04/22/2021 2:14 PM ASSISTANT PRODUCE MANAGER 2 Active metoprolol succinate (TOPROL XL) 50 mg Extended Release 24 hour tablet Take 1 Tablet (50 mg) by mouth daily. 30 Tablet 5 04/22/2021 2:14 PM ASSISTANT PRODUCE MANAGER 2 Active Additional Information Patient taking differently: 25 mgOral DAILY, Reported on 05/08/2021 tamsulosin (FLOMAX) 0.4 mg capsule Take 1 Capsule (0.4 mg) by mouth 2 times daily. 60 Capsule 1 04/22/2021 2:14 PM ASSISTANT PRODUCE MANAGER 2 Active ASCORBIC ACID, VITAMIN C, ORAL [...] mouth daily. 30 Tablet 04/22/2021 2:14 PM ASSISTANT PRODUCE MANAGER 2 Active spironolactone (ALDACTONE) 25 mg tablet Take One-Half Tablet (12.5 mg) by mouth daily. 30 Tablet 04/22/2021 2:14 PM ASSISTANT PRODUCE MANAGER 2 Active calcium carbonate + vitamin D [...] daily. Active phenoL (CHLORASEPTIC) 1.4 % Aerosol, [place] 1 [place] by Mouth/Throat route every 2 hours as [...] migh t be different from the original. Latex Spooler - Dr. Flip Macias [facility] Heart and Vascular - [address] [facility] Problem Noted Date Diagnosed Date Chest pain 04/17/2021 Overview (04/18/2021): Added automatically from request for surgery [id number] Acute respiratory failure with hypoxia Acute on chronic congestive heart failure Social History Tobacco Use Types Packs/Day Years Used Date Smoking Tobacco: Never Smokeless Tobacco: Never Sex and Gender Information Value Date Recorded Sex Assigned at Not on file Legal Sex Male 4:15 AM ASSISTANT PRODUCE MANAGER Gender Identity Not on file Sexual Orientation Not on file Last Filed Vital Signs Vital Sign Reading Time Taken Comments Blood Pressure 132/54 04/26/2021 9:27 AM ASSISTANT PRODUCE MANAGER Pulse 55 04/26/2021 9:27 AM ASSISTANT PRODUCE MANAGER Temperature 36.7 C (98.1 F) 04/22/2021 7:49 AM ASSISTANT PRODUCE MANAGER Respiratory Rate 20 04/22/2021 7:49 AM ASSISTANT PRODUCE MANAGER Oxygen Saturation 98% 04/26/2021 9:27 AM ASSISTANT PRODUCE MANAGER Inhaled Oxygen Concentration - - Weight 101 kg (222 lb 9.6 oz) 04/26/2021 9:27 AM ASSISTANT PRODUCE MANAGER Height 180.3 cm (5' 11 ) 04/17/2021 11:13 PM ASSISTANT PRODUCE MANAGER Body Mass Index 31.05 04/17/2021 11:13 PM ASSISTANT PRODUCE MANAGER Plan of Treatment Health Maintenance Due Date Last Done Comments ZOSTER VACCINE (1 of 2) 10/02/1985 DTAP/TDAP/TD VACCINES (1 - Tdap) 01/15/2002 01/15/20 02 RSV VACCINE (60+ or ) (1 - 1-dose 75+ series) 10/02/2010 PNEUMOCOCCAL VACCINE 50+ YEA RS (2 of 2 - PCV) 05/06/2019 05/06/2018, 10/19/2017, 10/02/2016, Additional history exists INFLUENZA VACCINE (#1) 2024 Medical Devices Implanted Type Area Aircraft Inspector Device Identifier Shelf Expiration Date Model / Serial / Lot Stent Synergy Xd [id number] Evrs Elut [id number] - [id number] Implanted:Qty : 1 on 04/18/2021 by Flip Macias MD at [facility] Stent Left: Coronary [employer] 10/29/2022 [id number] / / [id number] Description:1st diagonal Insurance [facility] [facility] RX [employer] Medicare Part D Advance Directives For more information, please contact: [phone] * Full Code (Latest Code Status on File) Date Activated Date Inactivated Comments 04/21/2021 1:43 PM 04/22/2021 4:45 PM * Default Full Code - Needs Discussion Date Activated Date Inactivated Comments 04/18/2021 12:44 PM 04/21/2021 1:43 PM * Default Full Code - Needs Discussion Date Activated Date Inactivated Comments 04/18/2021 8:34 AM 04/18/2021 12:44 PM
--- NOTE | 2024-09-24 12:40 | ECG_ITS ---
[facility] Test Date: 2024-09-24 Pat Name: Roland Diaz Department: Room: Gender: Male Correction Warden: : 1935 Requested By: Zac Vazquez Order Number: [id number] Reading MD: Measurements Intervals [place] Rate: 61 P: 0 ME: 0 QRS: -43 QRSD: 202 T: 127 QT: 515 QTc: 521 Interpretive Statements ATRIAL FIBRILLATION LEFT AXIS DEVIATION [QRS AXIS < -30] LEFT BUNDLE BRANCH BLOCK [120+ ms QRS DURATION, 80+ ms Q/S IN V1/V2, 85+ ms R IN I/aVL/V5/V6] Compared to ECG 09/20/2024 13:20:40 No significant changes [email or web address]
--- NOTE | 2024-09-24 13:13 | XRR_ITS ---
PROCEDURE INFORMATION: Exam: XR Chest Exam date and time: 09/24/2024 1:30 PM Age: 88 years old Clinical indication: Other: Weakness TECHNIQUE: Imaging protocol: Radiologic exam of the chest. Views: 1 view. COMPARISON: CR XR chest 1V portable [id number] 09/20/2024 1:25 PM FINDINGS: Tubes, catheters and devices: A defibrillator device is present, and its leads are in appropriate position. Lungs: Bibasilar atelectasis. There is no evidence of focal pulmonary consolidation. Pleural spaces: Unremarkable. No pleural effusion. No pneumothorax. Heart/Mediastinum: The heart is enlarged. There has been an aortic valve replacement. Vasculature: There are aortic arch calcifications. There is unfolding of the thoracic aorta. Bones/joints: Demineralization of the visualized bones, limiting sensitivity for nondisplaced fractures. XR/XR chest 1V [id number] IMPRESSION: No focal consolidation.
--- NOTE | 2024-09-24 13:17 | W.ED.DIZZY ---
HPI - Dizziness General: Chief Complaint: Dizziness Stated Complaint: dizzy, weak, pain with urination Time Seen by Provider: 09/24/24 13:08 History of Present Illness: HPI Narrative: Chief plaint is burning with urination and lightheadedness with standing and low energy. The patient states that he always feels a little lightheaded when he stands for the last week or 2. He states he did pass out about a week ago and came to the emergency room for it. He states he passed out after getting off the toilet. He denies any injury or pain. No headache. Denies having any chest pain or palpitations. He states he has chronic shortness of breath and this is unchanged. He has chronic edema in his legs and he states it is much better than it was. He states he was on a higher dose of medication to get the fluid out of his legs. He states he also had low potassium and has been taking an extra potassium try to get his potassium up. No black or bloody stools. No vomiting or diarrhea. No fever cough or hemoptysis. No abdominal pain. No chest discomfort. He states it does burn when he pees. No focal weakness in his arms or legs. No trouble with balance or change in vision or focal weakness on one side of his body. Related Data Home Medications ?Medication ?Instructions ?Recorded ?Confirmed docusate sodium 100 mg capsule 100 mg PO BID Constipation 04/05/19 09/24/24 (Colace) ascorbic acid (vitamin C) 1,000 mg 1,000 mg PO DAILY 11/06/20 09/24/24 tablet (Vitamin C) aspirin 81 mg tablet,delayed 81 mg PO DAILY 06/03/24 09/24/24 release calcium no.26 167 mg-magnesium 1 cap PO DAILY 06/17/24 09/24/24 no.15 83 mg-zinc 5 mg capsule cholecalciferol (vitamin D3) 25 25 mcg PO DAILY 06/17/24 09/24/24 mcg (1,000 unit) tablet (Vitamin D3) vitamin B complex 1 tab PO DAILY 06/17/24 09/24/24 fexofenadine 60 mg tablet 60 mg PO BID 07/13/24 09/24/24 atorvastatin 40 mg tablet 40 mg PO QPM 09/01/24 09/24/24 fluticasone propionate 50 1 spray intranasal DAILY 09/01/24 09/24/24 mcg/actuation nasal spray,suspension vitamin A 2,400 mcg capsule 2,400 mcg PO DAILY 09/01/24 09/24/24 potassium chloride 10 mEq 10 meq PO Q2H 09/20/24 09/24/24 tablet,extended release Previous Rx's ?Medication ?Instructions ?Recorded ferrous sulfate 325 mg (65 mg 325 mg PO DAILY #30 tabs 01/08/23 iron) tablet pantoprazole 40 mg tablet,delayed 40 mg PO DAILY #90 tabs 07/30/23 release tamsulosin 0.4 mg capsule 0.4 mg PO DAILY #90 caps 08/26/23 nitroglycerin 0.4 mg sublingual 0.4 mg sublingual Q5M PRN Chest 12/22/23 tablet (Nitrostat) Pain #25 tabs finasteride 5 mg tablet 5 mg PO DAILY #90 tabs 03/21/24 amiodarone 200 mg tablet 200 mg PO DAILY for rhythm #90 tabs 05/09/24 clopidogrel 75 mg tablet 75 mg PO DAILY #90 tabs 05/09/24 furosemide 40 mg tablet (Lasix) 40 mg PO QDAY edema #90 tabs 06/20/24 midodrine 10 mg tablet See Rx Instructions .Route 06/21/24 .COMPLEX #30 tabs guaifenesin 600 mg tablet, 600 mg PO BID #60 tabs 09/02/24 extended release 12 hr (Mucinex) Allergies Allergy/AdvReac Type Severity Reaction Status Date / Time loratadine Allergy ADR-Itching Verified 09/19/24 13:39 [facility] PFS: Medical History Positive cardiac stress test Severe mitral regurgitation 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 Aortic stenosis Ventricular tachycardia Status post AICD placement Stage 3 chronic kidney disease 1.7-2.1 baseline creatinine Essential hypertension CHF (congestive heart failure) Echocardiogram 09/13: LVEF 55-60%, mod mitral regurg, mod pulm HTN Hyperlipidemia Anemia iron deficient Hypothyroidism Vitamin B12 deficiency Allergic rhinitis Insomnia ASHD (arteriosclerotic heart disease) Ischemic cardiomyopathy BPH (benign prostatic hyperplasia) Gynecomastia, male Acute kidney injury superimposed on chronic kidney disease Abdominal aortic aneurysm (AAA) 4.3?4.3 approximately 5.04?5.04 distally Peripheral neuropathy History of nonmelanoma skin cancer Claudication of both lower extremities Pulmonary HTN Bradycardia Heart block atrioventricular Prostate cancer SVT (supraventricular tachycardia) Cognitive dysfunction GERD (gastroesophageal reflux disease) TIA (transient ischemic attack) Surgical History Fracture of left hip requiring operative repair S/P TAVR (transcatheter aortic valve replacement) S/P angioplasty with stent Coronary disease status post 3 stents Status post endovascular aneurysm repair (EVAR) S/P implantation of automatic cardioverter/defibrillator (AICD) [facility] [employer] 08/07 Family History Father CAD (coronary artery disease) Mother CAD (coronary artery disease) Congestive heart failure (CHF) Brother Parkinson disease Sister Fibromyalgia Other Cancer Social History Smoking and tobacco/nicotine status: never used tobacco/nicotine Alcohol intake: never Substance/Drug Use: never Lives independently: Yes Marital status: / service: No Current occupational status: retired Current gender identity: Male Gillian/Rastafari: Sikh Physical Exam Narrative: EXAM NARRATIVE: Patient is very hard of hearing. He is sitting up in the bed alert and oriented in no acute distress. No signs of trauma to his head. His neck is supple. He tracks me around the room. No evident visual field deficit. Pupils are equal and reactive with full range ocular motion. Normal conjunctiva. Moist mucous membranes. Neck is supple. Heart regular rhythm. Lung sounds are mildly diminished but no increased work of breathing or retractions or accessory muscle use. He talks in full sentences. Abdomen soft nontender. Extremities warm appear well-perfused and has 1+ pitting edema both legs. No calf tenderness. Patient is weak in both legs and has difficulty lifting both of them off the bed. No apparent asymmetry. He has no drift in his arms. He has intact [id number]. No truncal ataxia. Speech is clear. He is alert and oriented. No facial droop. Course Vital Signs: Vital signs: Vital Signs Temperature 98.5 F 09/24/24 12:32 Pulse Rate 58 L 09/24/24 15:41 Respiratory Rate 25 H 09/24/24 15:00 Blood Pressure 110/68 09/24/24 15:41 Pulse Oximetry 97 09/24/24 15:41 Oxygen Delivery Me thod Room Air 09/24/24 12:32 MDM - Dizziness Medical Decision Making Patient presents complaining of lightheadedness when he stands up. Patient admitted for CHF exacerbation and since then has been having some difficulty with lightheadedness with standing. I suspect this is related to his diuresis by his description and he states the swelling in his legs is gone down significantly. Will check his CBC and CMP to check for anemia or acute renal insufficiency and also to check his potassium. He denies any chest pain or chest discomfort to suggest cardiac ischemia. Will get a EKG. He also complains of burning with urination so we will check urinalysis. He had no abdominal tenderness. Patient with complex long medical history on review of past medical record. I reviewed 2 recent ED visit notes. He does have a history of endoleak however had a CT angio with recent hospitalization. Patient with known CHF and may have been over diuresed. He denies any blood loss that he is aware of. Denies black or bloody stools. He denies fever or infectious symptoms other than burning with urination and sepsis is unlikely by history and exam. Will check orthostatics to help guide decision on giving IV fluid. Patient's proBNP has trended up. His creatinine shows similar creatinine to prior. His potassium has trended up. Urinalysis not convincing for infection. Chest x-ray appears improved compared to prior on my own interpretation. Formal interpretation is pending. Patient states his main complaint is he just wants to get his energy back. He states has had low energy now for a long time and is waiting for his energy to come back. Patient cannot tell me what diuretic he is currently taking. Family has arrived including his niece however family cannot tell me details of what medication he is on either. Their doctor has adjusted his diuretics but they cannot tell me what they are with the doses. This makes his care more difficult to adjust. I recommended following up with his primary care doctor promptly and advised signs symptoms of worsening to watch and return for. Patient was asymptomatic with orthostatics and he did not have significant change with orthostatics. Patient wanting to go home. Reasonable to continue outpatient management. Patient agrees with plan after informed discussion. I advised him for portance of prompt follow-up with his doctor particularly with limited available history regarding his current medications. Lab Data 09/24/24 13:20 09/24/24 13:20 Radiology Impressions Chest X-Ray 09/24/24 13:13 IMPRESSION: No focal consolidation. Laboratory Results WBC 5.57 10^3/uL (3.29-11.43) 09/24/24 13:20 RBC 4.23 10^6/uL (3.85-5.65) 09/24/24 13:20 Hgb 12.20 g/dL (11.27-16.99) 09/24/24 13:20 Hct 38.9 % (37-53) 09/24/24 13:20 MCV 92.0 fl (82-101) 09/24/24 13:20 MCH 28.8 pg (27-33) 09/24/24 13:20 MCHC 31.4 g/dL (30-55) 09/24/24 13:20 RDW 21.0 % (12.1-15.1) H 09/24/24 13:20 Plt Count 128 10^3/cmm (157-399) L 09/24/24 13:20 MPV 10.1 fL (7.4-10.4) 09/24/24 13:20 Neut % (Auto) 74.3 % 09/24/24 13:20 Lymph % (Auto) 6.8 % 09/24/24 13:20 [place] % (Auto) 15.8 % 09/24/24 13:20 Eos % (Auto) 1.3 % 09/24/24 13:20 Baso % (Auto) 1.6 % 09/24/24 13:20 Neut # (Auto) 4.14 10^3/uL (1.8-7.7) 09/24/24 13:20 Lymph # (Auto) 0.4 10^3/uL (0.8-4.8) L 09/24/24 13:20 [place] # (Auto) 0.9 10^3/uL (0.2-0.9) 09/24/24 13:20 Eos # (Auto) 0.1 10^3/uL (0.0-0.8) 09/24/24 13:20 Baso # (Auto) 0.1 10^3/uL (0.0-0.1) 09/24/24 13:20 Nucleated RBC % (auto) 0 % 09/24/24 13:20 Nucleated RBCs # 0.0 /100WBC 09/24/24 13:20 Sodium 134 mmol/L (136-145) L 09/24/24 13:20 Potassium 3.1 mmol/L (3.5-5.1) L 09/24/24 13:20 Chloride 89 mmol/L (98-107) L 09/24/24 13:20 Carbon Dioxide 28 mmol/L (22-29) 09/24/24 13:20 Anion Gap 20.1 (5-19) H 09/24/24 13:20 BUN 53 mg/dL (8-23) H 09/24/24 13:20 Creatinine 2.2 mg/dL (0.7-1.2) H 09/24/24 13:20 GFR Calculation Not Reportable 09/24/24 13:20 Glucose 107 mg/dL (65-115) 09/24/24 13:20 Calculated Osmolality 293 mOsm/kg (285-295) 09/24/24 13:20 Calcium 9.4 mg/dL (8.5-10.5) 09/24/24 13:20 Total Bilirubin 1.3 mg/dL (0.15-1.2) H 09/24/24 13:20 AST 40 U/L (0-40) 09/24/24 13:20 ALT 27 U/L (0-41) 09/24/24 13:20 Alkaline Phosphatase 137 U/L (40-130) H 09/24/24 13:20 NT-Pro-B Natriuret Pep 28464 pg/mL (0-450) H 09/24/24 13:20 Total Protein 6.9 g/dL (6.6-8.7) 09/24/24 13:20 Albumin 3.5 g/dL (3.5-5.2) 09/24/24 13:20 Globulin 3.4 g/dL (1.3-4.6) 09/24/24 13:20 Urine Color Cancelled 09/24/24 13:09 Urine Color Yellow (Yellow) 09/24/24 13:09 Urine Appearance Cancelled 09/24/24 13:09 Urine Appearance Clear (CLEAR) 09/24/24 13:09 Urine pH 7.0 (5-7) 09/24/24 13:09 Urine pH Cancelled 09/24/24 13:09 Ur Specific [place] 1.009 (1.005-1.030) 09/24/24 13:09 Ur Specific [place] Cancelled 09/24/24 13:09 Urine Protein Cancelled 09/24/24 13:09 Urine Protein Negative (Negative) 09/24/24 13:09 Urine Glucose (UA) Cancelled 09/24/24 13:09 Urine Glucose (UA) Negative (Normal) 09/24/24 13:09 Urine Ketones Cancelled 09/24/24 13:09 Urine Ketones Negative (Negative) 09/24/24 13:09 Urine Blood Cancelled 09/24/24 13:09 Urine Blood Negative (Negative) 09/24/24 13:09 Urine Nitrate Cancelled 09/24/24 13:09 Urine Nitrate Negative (Negative) 09/24/24 13:09 Urine Bilirubin Cancelled 09/24/24 13:09 Urine Bilirubin Negative (Negative) 09/24/24 13:09 Prot Sulfosalicylic Acd Cancelled 09/24/24 13:09 Urine Urobilinogen 0.2 mg/dL (Negative) 09/24/24 13:09 Urine Urobilinogen Cancelled 09/24/24 13:09 Ur Leukocyte Esterase Cancelled 09/24/24 13:09 Ur Leukocyte Esterase Negative (Negative) 09/24/24 13:09 Urine RBC 0-2 /hpf (0-2) 09/24/24 13:09 Urine RBC Cancelled 09/24/24 13:09 Urine WBC 0-5 /hpf (0-5) 09/24/24 13:09 Urine WBC Cancelled 09/24/24 13:09 Ur Squamous Epith Cells 0-5 /hpf (0-5) 09/24/24 13:09 Ur Squamous Epith Cells Cancelled 09/24/24 13:09 Ur Transition Epith Cell Cancelled 09/24/24 13:09 Ur Renal Epithelial Cell Cancelled 09/24/24 13:09 Calcium Oxalate Crystal Cancelled 09/24/24 13:09 Uric Acid Crystals Cancelled 09/24/24 13:09 Triple Phos Crystals Cancelled 09/24/24 13:09 Other Crystals Cancelled 09/24/24 13:09 Amorphous Sediment Cancelled 09/24/24 13:09 Amorphous Sediment Not Reportable 09/24/24 13:09 Urine Bacteria Cancelled 09/24/24 13:09 Urine Bacteria None seen /hpf (NONE) 09/24/24 13:09 Hyaline Casts 0.81 /lpf 09/24/24 13:09 Hyaline Casts Cancelled 09/24/24 13:09 Fine Granular Casts Cancelled 09/24/24 13:09 Coarse Granular Casts Cancelled 09/24/24 13:09 RBC Casts Cancelled 09/24/24 13:09 Other Casts Cancelled 09/24/24 13:09 Urine Mucus Cancelled 09/24/24 13:09 Urine Trichomonas Cancelled 09/24/24 13:09 Urine Yeast Cancelled 09/24/24 13:09 Urine Sperm Cancelled 09/24/24 13:09 Ur Oval Fat Bodies Cancelled 09/24/24 13:09 All radiology interpretation(s) finalized by discharge Discharge Plan Discharge Patient Disposition: Home Clinical Impression: Fatigue CHF (congestive heart failure) Qualifiers: Heart failure type: systolic Heart failure chronicity: chronic Qualified Code(s): I50.22 - Chronic systolic (congestive) heart failure Condition: Stable Prescriptions: No Action docusate sodium [Colace] 100 mg capsule 100 mg PO BID fexofenadine 60 mg tablet 60 mg PO BID aspirin 81 mg tablet,delayed release (DR/EC) 81 mg PO DAILY nitroglycerin [Nitrostat] 0.4 mg tablet, sublingual 0.4 mg SUBLINGUAL Q5M PRN (Reason: Chest Pain) Qty: 25 3RF clopidogrel 75 mg tablet 75 mg PO DAILY Qty: 90 3RF amiodarone 200 mg tablet 200 mg PO DAILY Qty: 90 3RF ferrous sulfate 325 mg (65 mg iron) tablet 325 mg PO DAILY Qty: 30 3RF Rx Instructions: with breakfast pantoprazole 40 mg tablet,delayed release (DR/EC) 40 mg PO DAILY Qty: 90 3RF tamsulosin 0.4 mg capsule 0.4 mg PO DAILY Qty: 90 3RF finasteride 5 mg tablet 5 mg PO DAILY Qty: 90 3RF midodrine 10 mg tablet See Rx Instructions .ROUTE .COMPLEX Qty: 30 6RF Dose Instruction: TAKE 1 TABLET BY MOUTH THREE TIMES DAILY NEEDED FOR low blood pressure, DO not give last DOSE of DAY AFTER 6pm or WITHIN FOUR hours of bedtime. Rx Instructions: TAKE 1 TABLET BY MOUTH THREE TIMES DAILY NEEDED FOR low blood pressure, DO not give last DOSE of DAY AFTER 6pm or WITHIN FOUR hours of bedtime. ascorbic acid (vitamin C) [Vitamin C] 1,000 mg Tablet 1,000 mg PO DAILY vitamin B complex Tablet 1 tab PO DAILY cholecalciferol (vitamin D3) [Vitamin D3] 25 mcg (1,000 unit) Tablet 25 mcg PO DAILY calcium 26-magnesium 15-zinc 167 mg calcium- 83 mg-5 mg Capsule 1 cap PO DAILY furosemide [Lasix] 40 mg tablet 40 mg PO QDAY Qty: 90 0RF vitamin A 2,400 mcg Capsule 2,400 mcg PO DAILY fluticasone propionate 50 mcg/actuation spray,suspension 1 spray INTRANASAL DAILY atorvastatin 40 mg tablet 40 mg PO QPM guaifenesin [Mucinex] 600 mg Tablet Extended Release 12hr 600 mg PO BID Qty: 60 0RF potassium chloride 10 mEq tablet extended release 10 meq PO Q2H Discharge Orders: Discharge ED (Routine); Ordered 09/24/24 Ordered By: Arsenio Reynolds Referrals: Cayla Perea MD [Primary Care Provider, Family Practice] Patient Instructions: Opioid Safety, Pain Management, Patient Portal & Kelly Instructions Activity Restrictions/Additional Instructions: Call your doctor for prompt follow-up this week. Do not exert yourself. Come back if increasing shortness of breath, increased welling in your legs, feeling like passing out, fever, vomiting, getting worse instead of better, any concerns. Please review your potassium and diuretic medications and other medications with your doctor as discussed. Please follow-up on your test results including your formal chest x-ray interpretation and lab results with your doctor this week. Do not stand up rapidly. When you stand up stand up gradually and wait for at least 2 minutes before you try to walk. Fall precautions. Print Language: New Zealander Coding Level of Care Code ED Monologist for Jose Carlos Omer
[2024-09-24 13:27] LABS: Hematocrit 38.9 % (37-53); Hemoglobin 12.20 g/dL (11.27-16.99); Mean Corpuscular HGB Conc 31.4 g/dL (30-55); Mean Corpuscular Hemoglobin 28.8 pg (27-33); Mean Corpuscular Volume 92.0 fl (82-101); Nucleated Red Blood Cells % 0 %; Platelet Count 128 10^3/cmm (157-399); Red Blood Count 4.23 10^6/uL (3.85-5.65); White Blood Count 5.57 10^3/uL (3.29-11.43)
[2024-09-24 13:33] LABS: Glucose Urine UA Negative (Normal); Nitrate Urine Negative (Negative); Specific Gravity, Urine 1.009 (1.005-1.030)
--- NOTE | 2024-09-24 13:34 | PC.NURSE ---
Pt oxygen sats were running at 84% on room air, placed pt on 2 liters of oxygen via NC.
[2024-09-24 13:59] LABS: Alanine Aminotransferase 27 U/L (0-41); Albumin Level 3.5 g/dL (3.5-5.2); Alkaline Phosphatase 137 U/L (40-130); Anion Gap 20.1 (5-19); Aspartate Amino Transferase 40 U/L (0-40); Blood Urea Nitrogen 53 mg/dL (8-23); Calcium 9.4 mg/dL (8.5-10.5); Carbon Dioxide 28 mmol/L (22-29); Chloride 89 mmol/L (98-107); Creatinine Clr Calc Pharmacy 25.1361; Globulin 3.4 g/dL (1.3-4.6); Glucose 107 mg/dL (65-115); NT Pro B Type Natriuretic Pept 21054 pg/mL (0-450); Osmolality Calculated 293 mOsm/kg (285-295); Potassium 3.1 mmol/L (3.5-5.1); Sodium 134 mmol/L (136-145); Total Protein 6.9 g/dL (6.6-8.7)
== END 2024-09-24 15:48 | disposition home or self-care (01) ==
PROVIDERS: Emergency Provider Emergency Medicine; PCP Family Medicine
DX: I13.0 Hypertensive heart and chronic kidney disease with heart failure and stage 1 through stage 4 chronic kidney disease, or unspecified chronic kidney disease (principal); I50.22 Chronic systolic (congestive) heart failure; N18.30 Chronic kidney disease, stage 3 unspecified; Z86.73 Personal history of transient ischemic attack (TIA), and cerebral infarction without residual deficits; R53.83 Other fatigue
CPT/HCPCS: 71045; 80053; 81001; 83880; 85025; 93005; 93010; 99285

== ENCOUNTER → 2024-09-28 13:21 | Outpatient (BNVA) | payer MEDICARE, SELFPAY | PROVIDERS: PCP Family Medicine; Visit Provider Family Medicine | DX: N17.9 Acute kidney failure, unspecified (principal); E87.6 Hypokalemia | CPT/HCPCS: 80048 ==